=== PATIENT | male | born 1935 | race Caucasian/White ===

== ENCOUNTER → 2018-02-08 10:36 | Outpatient (CLI) | payer MEDICARE, OTHER, SELFPAY ==
--- NOTE | 2018-02-08 | DI.ECHO.S_ITS ---
[facility]---------+ [facility] +---------+ : : [address] : [address] : : : : [id number] : : : : Phone: [phone]+ Echocardiogram Report + + :Name: MADDI STERLING Study Date: 02/08/2018 Height: 71 in : :[facility] Weight: 212 lb : : Gender: Male BSA: 2.2 m2 : :: 1935 Age: 82 yrs BP: 160/78 mmHg: :Reason For Study: Congestive Heart Failure : : Performed By: Agustina Dorman : :Referring: CORY ALMODOVAR : + + Interpretation Summary 1) Mildly enlarged left ventricle with moderately reduced function (EF 35- 40%). 2) Moderate global hypokinesis with akinesis of the mid to apical septum. 3) Grossly, normal right ventricular size and function. 4) No significant valvular abnormalities. 5) No prior Echo available for comparison. Procedure: A two-dimensional transthoracic echocardiogram with color flow and Doppler was performed. The study quality was technically adequate. There is no prior echocardiogram noted for this patient. The patient was in normal sinus rhythm during the exam. Left Ventricle: The left ventricle is mildly dilated. There is normal left ventricular wall thickness. The ejection fraction is estimated to be 35-40%. Moderate global hypokinesis with akinesis of the mid to apical septum. Assessment of diastolic parameters suggests a pseudonormalization pattern, consistent with elevated filling pressures. Right Ventricle: The right ventricle grossly appears normal in size with probable normal systolic function. Atria: The left atrium is moderately dilated. Right atrial size is normal. The interatrial septum is intact with no evidence for an atrial septal defect. Mitral Valve: The mitral valve leaflets appear mildly thickened, but open well. There is mild mitral regurgitation. Aortic Valve: The aortic valve is trileaflet. The aortic valve opens well. There is moderate aortic valve sclerosis. There is no aortic valve stenosis. There is mild aortic regurgitation. Tricuspid Valve: The tricuspid valve is normal in structure and function. There is trace tricuspid regurgitation. Pulmonic Valve: The pulmonic valve is not well seen, but is grossly normal. Great Vessels: The aortic root is normal size. The ascending aorta is at the upper limits of normal in size. The aortic arch is normal in size. Pericardium/ Pleura There is no pericardial effusion. There is no pleural effusion. MMode/2D Measurements & Calculations LVIDd: 6.0 cm Ao root diam: 3.4 cm LVIDs: 5.0 cm Aortic Jxn: 3.2 cm FS: 18.0 % asc Aorta Diam: 3.5 cm IVSd: 0.75 cm Ao Arch Diam (Prox Trans): 2.9 cm LVPWd: 0.76 cm LV sarabia. diameter/BSA (cm/m^2): 2.8 LV sys. diameter/BSA (cm/m^2): 2.3 LA dimension: 4.4 cm RA long axis: 5.1 cm LA A2 area: 25.5 cm2 RA area: 15.7 cm2 LA A4 area: 25.2 cm2 RA vol: 41.0 ml LA length (vol): 5.9 cm RA : 19.0 ml/m2 LA vol: 92.6 ml IVC diam: 2.0 cm LA vol index: 42.8 ml/m2 RVDd major: 5.0 cm RVD1 (basal): 3.2 cm RVD2 (mid): 2.2 cm Doppler Measurements & Calculations Ao V2 max: 140.7 cm/sec MV E max mango: 82.9 cm/sec Ao V2 mean: 82.1 cm/sec MV A max mango: 104.9 cm/sec Ao max P.9 mmHg MV E/A: 0.79 Ao mean P.3 mmHg Med Peak E' Mnago: 3.8 cm/sec Ao V2 VTI: 30.0 cm E/E' med: 21.9 Lat Peak E' Mango: 9.7 cm/sec E/E' lat: 8.6 E/e' average: 15.2 MV dec time: 0.34 sec MV P1/2t: 102.4 msec MR ERO: 0.09 cm2 TR max mango: 240.9 cm/sec MV P1/2t max mango: 82.4 cm/sec TR max P.2 mmHg MVA(P1/2t): 2.1 cm2 PA V2 max: 92.6 cm/sec PA V2 mean: 57.0 cm/sec PA mean P.6 mmHg PA Accel Time: 0.11 sec MR flow rate: 51.0 cm3/sec MR PISA radius: 0.46 cm Reading Physician:12:50 PM
== END ==
PROVIDERS: PCP Internal Medicine; Visit Provider Internal Medicine
DX: I08.0 Rheumatic disorders of both mitral and aortic valves (principal); I50.9 Heart failure, unspecified
CPT/HCPCS: 93306

== ENCOUNTER → 2018-03-15 16:08 | Outpatient (CLI) | payer MEDICARE, OTHER, SELFPAY ==
--- NOTE | 2018-03-15 | DI.US.S_ITS ---
PROCEDURE: US THYROID INDICATIONS: RIGHT THYROID NODULE TECHNIQUE: Real-time scanning was performed of the thyroid gland, with image documentation. COMPARISON: [facility], US, THYROID, 08/07/2017, 13:10. FINDINGS: Right: Thyroid lobe measures 4.1 x 2.1 x 2.9 cm, and is homogeneous in echotexture. Left: Thyroid lobe measures 2.5 x 1.1 x 1.7 cm, and is homogenous in echotexture. Isthmus: 4.0 mm thick. Nodule number: 1 Location: Right mid inferior Size: Unchanged at 2.5 x 2.7 x 1.7 cm. Composition: Solid Echogenicity: Hyperechoic Shape: wider than tall. Margins: Smooth Echogenic foci: None Total points: 4 ACR TI-RADS category: Moderately suspicious Nodule number: 2 Location: Left mid Size: Unchanged at 0.5 x 0.6 x 0.4 cm. Composition: Mixed cystic and solid Echogenicity: Hypoechoic Shape: wider than tall. Margins: Smooth Echogenic foci: None Total points: 30 ACR TI-RADS category: Mildly suspicious IMPRESSION: Stable appearance of bilateral thyroid nodules. Recommend continued followup as detailed below. ACR TI-RADS definitions and recommendations: TI-RADS 1 (benign): 0 points. FNA not needed. TI-RADS 2 (not suspicious): 2 points. FNA not needed. TI-RADS 3 (mildly suspicious): 3 points. * FNA if 2.5 cm or larger, follow up if 1.5 cm or larger (at 1, 3, and 5 years). TI-RADS 4 (moderately suspicious): 4-6 points. * FNA if 1.5 cm or larger, follow up if 1 cm or larger (at 1, 2, 3, and 5 years). TI-RADS 5 (highly suspicious): 7 points or more. * FNA if 1 cm or larger, follow up if 0.5 cm or larger (every year for 5 years). Dictated by: Romel Romero [facility] Interpreted: Elmer Remy MD on 03/16/2018 at 8:03 Approved by: Elmer Remy M.D. on 03/16/2018 at 8:42
== END ==
PROVIDERS: PCP Internal Medicine; Visit Provider Otolaryngology
DX: E04.2 Nontoxic multinodular goiter (principal)
CPT/HCPCS: 76536

== ENCOUNTER → 2018-05-04 15:24 | Outpatient (CLI) | payer MEDICARE, OTHER, SELFPAY ==
--- NOTE | 2018-05-04 | DI.RAD.S_ITS ---
PROCEDURE: XR CHEST 2V INDICATIONS: COUGH TECHNIQUE: 2 views of the chest were acquired. COMPARISON: [facility], CT, THORAX WITHOUT CONTRAST, 07/26/2017, 13:43. FINDINGS: Surgical changes and devices: Sternotomy wires, presumed prior CABG. Lungs and pleura: The right chest is stable over time from prior CT scan in July of this year. The left chest is significantly changed with lobulated areas of thickening of the pleural surface and possible loculated pleural effusion components. Retrocardiac left lower lobe opacification is present, either representing evidence of fluid in this area versus pneumonia. Mediastinum: Mediastinal contours are normal. Heart size is normal. Bones and chest wall: No suspicious bony abnormalities. Soft tissues appear unremarkable. IMPRESSION: Prior sternotomy, presumed prior CABG. 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 Contrast enhanced chest CT scanning may be warranted at this time given this unusual new appearance, for reference to prior July [address] Dictated by: Abe Johnson M.D. on 05/04/2018 at 15:46 Approved by: Abe Johnson M.D. on 05/04/2018 at 15:48
== END ==
PROVIDERS: PCP Internal Medicine; Visit Provider Student in an Organized Health Care Education/Training Program
DX: R05 Cough (principal)
CPT/HCPCS: 71046

== ENCOUNTER 2018-05-05 15:29 | Inpatient (IN) | payer MEDICARE, OTHER, SELFPAY ==
[2018-05-05] VITALS (7 sets, daily range): BP systolic 108–144; BP diastolic 64–83; PULSE 92–103; RESP 15–21; TEMP 36–36.8; O2SAT 91–95; BMI 27.0
--- NOTE | 2018-05-05 16:10 | ED.SOB ---
HPI - SOB/Dyspnea <DANIELLE Hernandez - Last Filed: 05/05/18 22:22> General Chief Complaint: Shortness of Breath/Dyspnea Stated Complaint: CAN'T EAT,HEADACHE,COUGH,HARD TO BREATHE Time Seen by Provider: 05/05/18 16:08 Source: patient Mode of arrival: wheelchair Limitations: no limitations History of Present Illness 82 YEAR OLD MALE WITH HISTORY OF CHF IS A NONSMOKER HERE FOR COMPLAINT OF COUGH OVER THE PAST 4 DAYS. HE WAS SEEN BY HIS PRIMARY CARE PROVIDER OFFICE YESTERDAY AND WAS TREATED WITH AZITHROMYCIN. Chest x-ray was obtained yesterday which showed lobulated opacities and radiology requested that a CT be completed. He presents to the emergency room today due to need of CT and also worsening feeling today. He reports increasing shortness of breath and increasing weakness. He denies having any fever. He states he has had some decreased p.o. intake as he has not been feeling well. No nausea vomiting. Reports increased shortness of breath with activity. He denies having a productive cough. MD Complaint: shortness of breath Related Data Home Medications Medication Instructions Recorded Confirmed allopurinol 100 PO BID 05/06/18 atorvastatin 40 PO ONCE PM 05/06/18 clopidogrel 75 PO DAILY 05/06/18 fluticasone 50 mcg INTRANASAL BID 05/06/18 05/06/18 insulin NPH isoph U-100 human 56 units SUBCUT BID 05/06/18 05/06/18 [Novolin N NPH U-100 Insulin] losartan 50 mg PO DAILY 05/06/18 05/06/18 metoprolol succinate 05/06/18 pantoprazole 40 mg PO DAILY 05/06/18 05/06/18 spironolactone 25 mg PO DAILY 05/06/18 05/06/18 tamsulosin 0.4 mg PO BEDTIME 05/06/18 05/06/18 Allergies Allergy/AdvReac Type Severity Reaction Status Date / Time tolmetin Allergy Severe Anaphylaxis Verified 05/05/18 21:29 Review of Systems <DANIELLE Hernandez - Last Filed: 05/05/18 22:22> Constitutional Denies chills, Denies fever(s), Denies lethargy and Denies weakness Eyes Denies change in vision, Denies eye discharge, Denies irritation and Denies loss of vision ENT Ears, Nose, Mouth, and Throat: Denies change in voice, Denies neck pain, Denies sore throat and Denies throat swelling Cardiovascular Denies chest pain, Denies irregular heart rhythm, Denies lightheadedness, Denies palpitations and Denies orthopnea Respiratory Reports cough and Denies wheezing Gastrointestinal Gastrointestinal: Denies abdominal pain, Denies change in bowel habits, Denies diarrhea, Denies nausea and Denies vomiting Genitourinary Denies hematuria, Denies flank pain, Denies urinary incontinence and Denies urinary urgency Musculoskeletal Denies neck pain Integumentary/Breasts Denies pruritus, Denies erythema, Denies rash and Denies wounds Neurologic Denies confusion, Denies loss of vision and Denies weakness Psychiatric Denies anxiety, Denies confusion, Denies depression, Denies homicidal ideation and Denies suicidal ideation Endocrine Denies palpitations Hematologic/Lymphatic Denies easy bruising Allergic/Immunologic Denies urticaria, Denies throat swelling and Denies wheezing Exam <DANIELLE Hernandez - Last Filed: 05/05/18 22:22> Initial Vital Signs Initial Vital Signs: Vital Signs Temperature 96.8 F L 05/05/18 15:56 Pulse Rate 100 H 05/05/18 15:56 Respiratory Rate 20 05/05/18 15:56 Blood Pressure 108/64 05/05/18 15:56 Pulse Oximetry 91 05/05/18 15:56 Const General: cooperative and well developed Nutritional Appearance: well nourished Orientation: alert, awake, oriented x3 and not confused [facility] Mouth: oral mucosae normal and moist mucous membranes Eyes General: appearance normal, both eyes and all related structures Eyelids: eyelids normal Conjunctivae: conjunctivae normal Sclera: sclerae normal Pupils: PERRL EOM: EOM intact bilaterally Resp Effort & Inspection: normal respiratory effort, able to speak in complete sentences, no respiratory distress and no use of accessory muscles Auscultation: rales bilaterally, no rhonchi and no wheezes Cardio Rate: regular rate Rhythm: regular rhythm Heart Sounds: no click, no gallops, no murmurs and no rubs Pulses: normal peripheral pulses GI Inspection: non-distended Palpation: soft, no hepatosplenomegaly, No guarding, No pulsatile mass and No tender Auscultation: normal bowel sounds Skin General: no rashes or lesions noted, No jaundice and No petechiae Neuro General: alert, oriented x3, gait normal and no focal motor deficits Speech: speech normal <Gina Arita DO - Last Filed: 05/07/18 04:10> Initial Vital Signs Initial Vital Signs: Vital Signs Temperature 96.8 F L 05/05/18 15:56 Pulse Rate 100 H 05/05/18 15:56 Respiratory Rate 20 05/05/18 15:56 Blood Pressure 108/64 05/05/18 15:56 Pulse Oximetry 91 05/05/18 15:56 Course <DANIELLE Hernandez - Last Filed: 05/05/18 22:22> Orders Ordered: ED Orders 05/07/18 05:00 Basic Metabolic Panel Routine Complete Blood Count AUTO DIFF Routine Acetaminophen (Tylenol) 650 mg PO Q6HR PRN PRN Reason: As Needed for Fever/Mild Pain Last Admin: 05/06/18 17:24 Dose: 650 mg Al Hydrox/Mg Hydrox/Simethicone (Maalox Plus) 30 ml PO Q6HR PRN PRN Reason: Dyspepsia Albuterol (Ventolin) 2.5 mg INH [id number] [facility] Last Admin: 05/07/18 02:09 Dose: Not Given Admin: 05/06/18 21:27 Dose: Admin: 05/06/18 14:27 Dose: 2.5 mg Admin: 05/06/18 10:41 Dose: 2.5 mg Admin: 05/06/18 07:01 Dose: 2.5 mg Admin: 05/05/18 22:09 Dose: 2.5 mg Allopurinol (Zyloprim) 100 mg PO DAILY [facility] Last Admin: 05/06/18 10:16 Dose: 100 mg Atorvastatin Calcium (Lipitor) 40 mg PO BEDTIME [facility] Last Admin: 05/06/18 22:03 Dose: 40 mg Admin: 05/05/18 23:02 Dose: 40 mg Clopidogrel Bisulfate (Plavix) 75 mg PO DAILY [facility] Last Admin: 05/06/18 10:15 Dose: 75 mg Dextrose (D50w) 25 gm IV PRN PRN; Protocol PRN Reason: Hypoglycemia Enoxaparin Sodium (Lovenox) 30 mg SUBCUT DAILY [facility] Last Admin: 05/06/18 10:16 Dose: 30 mg Sodium Chloride (Normal Saline 0.9%) 1,000 mls @ 100 mls/hr IV CONT [facility] Last Admin: 05/06/18 18:31 Dose: 100 mls/hr Infusion: 05/06/18 17:39 Dose: 100 mls/hr Admin: 05/06/18 07:39 Dose: 100 mls/hr Infusion: 05/06/18 07:39 Dose: 100 mls/hr Admin: 05/05/18 22:28 Dose: 100 mls/hr Azithromycin 250 mg/ Dextrose 250 mls @ 250 mls/hr IV Q24H [facility] Last Infusion: 05/06/18 23:45 Dose: 250 mls/hr Admin: 05/06/18 22:44 Dose: 250 mls/hr Infusion: 05/06/18 02:53 Dose: 0 mls/hr Admin: 05/06/18 01:45 Dose: 250 mls/hr Ceftriaxone Sodium/Dextrose (Rocephin) 2 gm in 50 mls @ 100 mls/hr IV Q24H [facility] Last Infusion: 05/06/18 22:35 Dose: 100 mls/hr Admin: 05/06/18 22:02 Dose: 100 mls/hr Infusion: 05/06/18 01:40 Dose: 0 mls/hr Admin: 05/05/18 23:02 Dose: 100 mls/hr Insulin Aspart (Novolog Flexpen) 0 unit SUBCUT [facility]; Protocol Last Admin: 05/06/18 22:00 Dose: Not Given Admin: 05/06/18 17:23 Dose: 3 unit Admin: 05/06/18 13:38 Dose: 5 unit Admin: 05/06/18 10:08 Dose: 3 unit Admin: 05/06/18 00:32 Dose: 3 unit Insulin Human NPH (Humulin N) 25 unit SUBCUT BIDWM [facility] Losartan Potassium (Cozaar) 50 mg PO DAILY [facility] Last Admin: 05/06/18 10:16 Dose: 50 mg Magnesium Hydroxide (Milk Of Magnesia) 30 ml PO DAILY PRN PRN Reason: Constipation Metoprolol Succinate (Toprol Xl) 50 mg PO DAILY [facility] Last Admin: 05/06/18 10:16 Dose: 50 mg Ondansetron HCl (Zofran) 4 mg IV Q8HR PRN PRN Reason: Nausea And Vomiting Oxycodone HCl (Percolone) 5 mg PO Q6HR PRN PRN Reason: Pain, Moderate (4-6) Last Admin: 05/07/18 02:57 Dose: 5 mg Admin: 05/06/18 19:25 Dose: 5 mg Admin: 05/06/18 13:39 Dose: 5 mg Admin: 05/06/18 06:45 Dose: 5 mg Admin: 05/06/18 00:46 Dose: 5 mg Pantoprazole Sodium (Protonix) 40 mg PO 0700 [facility] Last Admin: 05/06/18 06:45 Dose: 40 mg Fluticasone/Salmeterol (Advair 250/50 Diskus) 1 puff INH RTBID [facility] Last Admin: 05/07/18 02:09 Dose: Admin: 05/06/18 10:42 Dose: 1 puff Tamsulosin HCl (Flomax) 0.4 mg PO DAILY [facility] Last Admin: 05/06/18 10:17 Dose: 0.4 mg Discontinued Medications Sodium Chloride (Normal Saline 0.9%) 1,000 mls @ 1,000 mls/hr IV BOLUS ONE Stop: 05/05/18 17:48 Last Infusion: 05/05/18 18:26 Dose: 0 mls/hr Admin: 05/05/18 17:07 Dose: 1,000 mls/hr Levofloxacin (Levaquin) 750 mg in 150 mls @ 100 mls/hr IV NOW ONE Stop: 05/05/18 21:05 Last Infusion: 05/05/18 21:19 Dose: 0 mls/hr Admin: 05/05/18 19:42 Dose: 100 mls/hr Ceftriaxone Sodium/Dextrose (Rocephin) 1 gm in 50 mls @ 100 mls/hr IV NOW ONE Stop: 05/05/18 20:10 Last Infusion: 05/05/18 20:42 Dose: 0 mls/hr Admin: 05/05/18 20:03 Dose: 100 mls/hr Sodium Chloride (Normal Saline 0.9%) 1,000 mls @ 1,000 mls/hr IV BOLUS ONE Stop: 05/05/18 20:48 Last Infusion: 05/05/18 21:19 Dose: 1,000 mls/hr Admin: 05/05/18 20:04 Dose: 1,000 mls/hr Insulin Human NPH (Humulin N) 25 unit SUBCUT BIDAC [facility] Insulin Human NPH (Humulin N) 25 unit SUBCUT BIDAC [facility] Last Admin: 05/06/18 17:22 Dose: 25 unit Admin: 05/06/18 10:08 Dose: 25 unit Vital Signs - 8 hr 05/06/18 23:00 05/07/18 00:00 Temperature 97.3 F L Pulse Rate 83 Respiratory Rate 22 Blood Pressure 132/70 Pulse Oximetry 94 95 <Gina Arita, - Last Filed: 05/07/18 04:10> Orders Ordered: ED Orders 05/07/18 05:00 Basic Metabolic Panel Routine Complete Blood Count AUTO DIFF Routine Acetaminophen (Tylenol) 650 mg PO Q6HR PRN PRN Reason: As Needed for Fever/Mild Pain Last Admin: 05/06/18 17:24 Dose: 650 mg Al Hydrox/Mg Hydrox/Simethicone (Maalox Plus) 30 ml PO Q6HR PRN PRN Reason: Dyspepsia Albuterol (Ventolin) 2.5 mg INH [id number] [facility] Last Admin: 05/07/18 02:09 Dose: Not Given Admin: 05/06/18 21:27 Dose: Admin: 05/06/18 14:27 Dose: 2.5 mg Admin: 05/06/18 10:41 Dose: 2.5 mg Admin: 05/06/18 07:01 Dose: 2.5 mg Admin: 05/05/18 22:09 Dose: 2.5 mg Allopurinol (Zyloprim) 100 mg PO DAILY [facility] Last Admin: 05/06/18 10:16 Dose: 100 mg Atorvastatin Calcium (Lipitor) 40 mg PO BEDTIME [facility] Last Admin: 05/06/18 22:03 Dose: 40 mg Admin: 05/05/18 23:02 Dose: 40 mg Clopidogrel Bisulfate (Plavix) 75 mg PO DAILY [facility] Last Admin: 05/06/18 10:15 Dose: 75 mg Dextrose (D50w) 25 gm IV PRN PRN; Protocol PRN Reason: Hypoglycemia Enoxaparin Sodium (Lovenox) 30 mg SUBCUT DAILY [facility] Last Admin: 05/06/18 10:16 Dose: 30 mg Sodium Chloride (Normal Saline 0.9%) 1,000 mls @ 100 mls/hr IV CONT [facility] Last Admin: 05/06/18 18:31 Dose: 100 mls/hr Infusion: 10/21/18 17:39 Dose: 100 mls/hr Admin: 05/06/18 07:39 Dose: 100 mls/hr Infusion: 05/06/18 07:39 Dose: 100 mls/hr Admin: 05/05/18 22:28 Dose: 100 mls/hr Azithromycin 250 mg/ Dextrose 250 mls @ 250 mls/hr IV Q24H [facility] Last Infusion: 05/06/18 23:45 Dose: 250 mls/hr Admin: 05/06/18 22:44 Dose: 250 mls/hr Infusion: 05/06/18 02:53 Dose: 0 mls/hr Admin: 05/06/18 01:45 Dose: 250 mls/hr Ceftriaxone Sodium/Dextrose (Rocephin) 2 gm in 50 mls @ 100 mls/hr IV Q24H [facility] Last Infusion: 05/06/18 22:35 Dose: 100 mls/hr Admin: 05/06/18 22:02 Dose: 100 mls/hr Infusion: 05/06/18 01:40 Dose: 0 mls/hr Admin: 05/05/18 23:02 Dose: 100 mls/hr Insulin Aspart (Novolog Flexpen) 0 unit SUBCUT [facility]; Protocol Last Admin: 05/06/18 22:00 Dose: Not Given Admin: 05/06/18 17:23 Dose: 3 unit Admin: 05/06/18 13:38 Dose: 5 unit Admin: 05/06/18 10:08 Dose: 3 unit Admin: 05/06/18 00:32 Dose: 3 unit Insulin Human NPH (Humulin N) 25 unit SUBCUT BIDWM [facility] Losartan Potassium (Cozaar) 50 mg PO DAILY [facility] Last Admin: 05/06/18 10:16 Dose: 50 mg Magnesium Hydroxide (Milk Of Magnesia) 30 ml PO DAILY PRN PRN Reason: Constipation Metoprolol Succinate (Toprol Xl) 50 mg PO DAILY [facility] Last Admin: 05/06/18 10:16 Dose: 50 mg Ondansetron HCl (Zofran) 4 mg IV Q8HR PRN PRN Reason: Nausea And Vomiting Oxycodone HCl (Percolone) 5 mg PO Q6HR PRN PRN Reason: Pain, Moderate (4-6) Last Admin: 05/07/18 02:57 Dose: 5 mg Admin: 05/06/18 19:25 Dose: 5 mg Admin: 05/06/18 13:39 Dose: 5 mg Admin: 05/06/18 06:45 Dose: 5 mg Admin: 05/06/18 00:46 Dose: 5 mg Pantoprazole Sodium (Protonix) 40 mg PO 0700 [facility] Last Admin: 05/06/18 06:45 Dose: 40 mg Fluticasone/Salmeterol (Advair 250/50 Diskus) 1 puff INH RTBID [facility] Last Admin: 05/07/18 02:09 Dose: Admin: 05/06/18 10:42 Dose: 1 puff Tamsulosin HCl (Flomax) 0.4 mg PO DAILY [facility] Last Admin: 05/06/18 10:17 Dose: 0.4 mg Discontinued Medications Sodium Chloride (Normal Saline 0.9%) 1,000 mls @ 1,000 mls/hr IV BOLUS ONE Stop: 05/05/18 17:48 Last Infusion: 05/05/18 18:26 Dose: 0 mls/hr Admin: 05/05/18 17:07 Dose: 1,000 mls/hr Levofloxacin (Levaquin) 750 mg in 150 mls @ 100 mls/hr IV NOW ONE Stop: 05/05/18 21:05 Last Infusion: 05/05/18 21:19 Dose: 0 mls/hr Admin: 05/05/18 19:42 Dose: 100 mls/hr Ceftriaxone Sodium/Dextrose (Rocephin) 1 gm in 50 mls @ 100 mls/hr IV NOW ONE Stop: 05/05/18 20:10 Last Infusion: 05/05/18 20:42 Dose: 0 mls/hr Admin: 05/05/18 20:03 Dose: 100 mls/hr Sodium Chloride (Normal Saline 0.9%) 1,000 mls @ 1,000 mls/hr IV BOLUS ONE Stop: 05/05/18 20:48 Last Infusion: 05/05/18 21:19 Dose: 1,000 mls/hr Admin: 05/05/18 20:04 Dose: 1,000 mls/hr Insulin Human NPH (Humulin N) 25 unit SUBCUT BIDAC ANDREI Insulin Human NPH (Humulin N) 25 unit SUBCUT BIDAC [facility] Last Admin: 05/06/18 17:22 Dose: 25 unit Admin: 05/06/18 10:08 Dose: 25 unit Vital Signs - 8 hr 05/06/18 23:00 05/07/18 00:00 Temperature 97.3 F L Pulse Rate 83 Respiratory Rate 22 Blood Pressure 132/70 Pulse Oximetry 94 95 MDM - SOB/Dyspnea <DANIELLE Hernandez - Last Filed: 05/05/18 22:22> Lab Data Result diagrams: 05/06/18 06:08 05/06/18 07:00 Lab Results 05/05/18 05/05/18 05/05/18 Range/Units 16:07 16:07 16:07 WBC 31.1 H* (4.5-11.0) X10^3/uL RBC 3.68 L (4.5-5.9) X10^6/uL Hgb 11.5 L (13.5-17.5) g/dL Hct 35.0 L (41-53) % MCV 95.2 (80-100) fL MCH 31.3 (26-34) PG MCHC 32.9 (30-36) % RDW 14.7 (11.6-14.8) % Plt Count 412 H (150-400) X10^3/uL Neut % (Auto) Not Reportable Lymph % (Auto) Not Reportable [place] % (Auto) Not Reportable Eos % (Auto) Not Reportable Baso % (Auto) Not Reportable Neut # (Auto) (3943-2264) /uL Total Counted 100 Seg Neutrophils % 85.0 H (38-70) % Band Neutrophils % 1.0 L (3-7) % Lymphocytes % (Manual) 4.0 L (25-45) % Atypical Lymphs % 4.0 H ( - 0) % Monocytes % (Manual) 5.0 (2-11) % Eosinophils % (Manual) 1.0 L (2-4) % Neutrophils # (Manual) 82528 H (5606-0681) /uL RBC Morphology Normal morphology ABG pH (7.35-7.45) ABG pCO2 (35-45) mmHg ABG pO2 (80-105) mmHg ABG HCO3 (23-27) mmol/L ABG Total CO2 (23-27) mmol/L ABG O2 Saturation (95-100) % ABG Base Excess (-2-3) mmol/L FiO2 Sodium 137 (137-145) mmol/L Potassium 4.6 (3.4-5.1) mmol/L Chloride 99 (98-107) mmol/L Carbon Dioxide 22 (22-32) mmol/L BUN 86 H (9-20) mg/dL Creatinine 2.20 H (0.66-1.25) mg/dL Estimated GFR 28.9 L (>60) mL/min BUN/Creatinine Ratio 39.1 H (6-22) Glucose 203 H (80-110) mg/dL Lactate (0.7-2.1) mmol/L Calcium 9.4 (8.4-10.2) mg/dL Total Bilirubin 1.3 (0.2-1.3) mg/dL AST 200 H (17-59) IU/L ALT 181 H (21-72) IU/L Alkaline Phosphatase 123 (38-126) U/L Total Creatine Kinase 127 (55-170) U/L CK-MB (CK-2) 3.23 H (<2.37) ng/mL CK-MB (CK-2) Rel Index 2.5 (1.5-5.0) % Troponin I < 0.012 (0.01-0.034) ng/mL B-Natriuretic Peptide 89.9 (<100) Total Protein 7.3 (6.3-8.2) g/dL Albumin 3.6 (3.5-5.0) g/dL Globulin 3.7 (1.7-4.1) g/dL Albumin/Globulin Ratio 1.0 (1.0-2.8) Procalcitonin 3.29 H (<0.5) ng/mL Urine RBC (0-5/HPF) Urine WBC (0-5/HPF) Ur Squamous Epith Cells Urine Bacteria (None) Ur Culture Indicated? Micro UA Comment Influenza A & B (PCR) (Negative) 05/05/18 05/05/18 05/05/18 Range/Units 16:07 17:00 19:50 WBC (4.5-11.0) X10^3/uL RBC (4.5-5.9) X10^6/uL Hgb (13.5-17.5) g/dL Hct (41-53) % MCV (80-100) fL MCH (26-34) PG MCHC (30-36) % RDW (11.6-14.8) % Plt Count (150-400) X10^3/uL Neut % (Auto) Lymph % (Auto) [place] % (Auto) Eos % (Auto) Baso % (Auto) Neut # (Auto) (4924-9582) /uL Total Counted Seg Neutrophils % (38-70) % Band Neutrophils % (3-7) % Lymphocytes % (Manual) (25-45) % Atypical Lymphs % ( - 0) % Monocytes % (Manual) (2-11) % Eosinophils % (Manual) (2-4) % Neutrophils # (Manual) (5658-2584) /uL RBC Morphology ABG pH (7.35-7.45) ABG pCO2 (35-45) mmHg ABG pO2 (80-105) mmHg ABG HCO3 (23-27) mmol/L ABG Total CO2 (23-27) mmol/L ABG O2 Saturation (95-100) % ABG Base Excess (-2-3) mmol/L FiO2 Sodium (137-145) mmol/L Potassium (3.4-5.1) mmol/L Chloride (98-107) mmol/L Carbon Dioxide (22-32) mmol/L BUN (9-20) mg/dL Creatinine (0.66-1.25) mg/dL Estimated GFR (>60) mL/min BUN/Creatinine Ratio (6-22) Glucose (80-110) mg/dL Lactate 1.5 (0.7-2.1) mmol/L Calcium (8.4-10.2) mg/dL Total Bilirubin (0.2-1.3) mg/dL AST (17-59) IU/L ALT (21-72) IU/L Alkaline Phosphatase (38-126) U/L Total Creatine Kinase (55-170) U/L CK-MB (CK-2) (<2.37) ng/mL CK-MB (CK-2) Rel Index (1.5-5.0) % Troponin I (0.01-0.034) ng/mL B-Natriuretic Peptide (<100) Total Protein (6.3-8.2) g/dL Albumin (3.5-5.0) g/dL Globulin (1.7-4.1) g/dL Albumin/Globulin Ratio (1.0-2.8) Procalcitonin (<0.5) ng/mL Urine RBC 0-1/hpf (0-5/HPF) Urine WBC 10-30/hpf H (0-5/HPF) Ur Squamous Epith Cells None seen Urine Bacteria Many (>30) H (None) Ur Culture Indicated? Specimen cultured Micro UA Comment Not Reportable Influenza A & B (PCR) Negative (Negative) 05/05/18 05/06/18 05/06/18 Range/Units 22:02 06:08 07:00 WBC 25.0 H (4.5-11.0) X10^3/uL RBC 3.34 L (4.5-5.9) X10^6/uL Hgb 10.5 L (13.5-17.5) g/dL Hct 31.6 L (41-53) % MCV 94.5 (80-100) fL MCH 31.4 (26-34) PG MCHC 33.2 (30-36) % RDW 14.6 (11.6-14.8) % Plt Count 344 (150-400) X10^3/uL Neut % (Auto) 87.3 H Lymph % (Auto) 4.6 L [place] % (Auto) 7.0 Eos % (Auto) 0.9 L Baso % (Auto) 0.2 Neut # (Auto) 91235 H (4356-2483) /uL Total Counted Seg Neutrophils % (38-70) % Band Neutrophils % (3-7) % Lymphocytes % (Manual) (25-45) % Atypical Lymphs % ( - 0) % Monocytes % (Manual) (2-11) % Eosinophils % (Manual) (2-4) % Neutrophils # (Manual) (1072-6485) /uL RBC Morphology ABG pH 7.49 H (7.35-7.45) ABG pCO2 28.3 L (35-45) mmHg ABG pO2 68 L (80-105) mmHg ABG HCO3 22 L (23-27) mmol/L ABG Total CO2 22 L (23-27) mmol/L ABG O2 Saturation 95 (95-100) % ABG Base Excess -2.0 (-2-3) mmol/L FiO2 24 Sodium 136 L (137-145) mmol/L Potassium 4.4 (3.4-5.1) mmol/L Chloride 103 (98-107) mmol/L Carbon Dioxide 22 (22-32) mmol/L BUN 68 H (9-20) mg/dL Creatinine 1.60 H (0.66-1.25) mg/dL Estimated GFR 41.8 L (>60) mL/min BUN/Creatinine Ratio 42.5 H (6-22) Glucose 194 H (80-110) mg/dL Lactate (0.7-2.1) mmol/L Calcium 8.6 (8.4-10.2) mg/dL Total Bilirubin 1.6 H (0.2-1.3) mg/dL AST 700 H (17-59) IU/L ALT 542 H (21-72) IU/L Alkaline Phosphatase 152 H (38-126) U/L Total Creatine Kinase (55-170) U/L CK-MB (CK-2) (<2.37) ng/mL CK-MB (CK-2) Rel Index (1.5-5.0) % Troponin I (0.01-0.034) ng/mL B-Natriuretic Peptide (<100) Total Protein 6.4 (6.3-8.2) g/dL Albumin 3.0 L (3.5-5.0) g/dL Globulin 3.4 (1.7-4.1) g/dL Albumin/Globulin Ratio 0.9 L (1.0-2.8) Procalcitonin (<0.5) ng/mL Urine RBC (0-5/HPF) Urine WBC (0-5/HPF) Ur Squamous Epith Cells Urine Bacteria (None) Ur Culture Indicated? Micro UA Comment Influenza A & B (PCR) (Negative) Point of Care Testing Glucose POC 179 Urine Dip Bedside Urine Glucose Negative Bedside Urine Bilirubin - Negative Bedside Urine Ketone - Negative Urine Specific [place] 1.020 Bedside Urine Occult Blood +/- Bedside Urine pH 5.5 Bedside Urine Protein +/- 15 Bedside Urine Urobilinogen - Negative Bedside Urine Nitrite - Negative Bedside Urine Leukocytes +++ 500 Esterase Imaging Data Chest x-ray: Radiologist's impression: [address] [address] XRay Report Signed Patient: Winston Houston LMR#: [id number] : [id number]:[id number] Age/Sex: 82 / MDate of Service: 05/04/18 Loc: RAD Accession Number: [id number] Procedure: XR chest 2V Ordering Provider: Janette Corea P.A-C PROCEDURE: XR CHEST 2V INDICATIONS: COUGH TECHNIQUE: 2 views of the chest were acquired. COMPARISON: [facility], CT, THORAX WITHOUT CONTRAST, 07/26/2017, 13:43. FINDINGS: Surgical changes and devices: Sternotomy wires, presumed prior CABG. Lungs and pleura: The right chest is stable over time from prior CT scan in July of this year. The left chest is significantly changed with lobulated areas of thickening of the pleural surface and possible loculated pleural effusion components. Retrocardiac left lower lobe opacification is present, either representing evidence of fluid in this area versus pneumonia. Mediastinum: Mediastinal contours are normal. Heart size is normal. Bones and chest wall: No suspicious bony abnormalities. Soft tissues appear unremarkable. IMPRESSION: Prior sternotomy, presumed prior CABG. 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 Contrast enhanced chest CT scanning may be warranted at this time given this unusual new appearance, for reference to prior July [address] Dictated by: Abe Johnson M.D. on 05/04/2018 at 15:46 Approved by: Abe Johnson M.D. on 05/04/2018 at 15:48 CT scan - chest: Radiologist's impression: [place] [address] CT Scan Report Signed Patient: Winston Houston LMR#: [id number] : 7Acct:[id number] Age/Sex: 82 / MDate of Service: 05/05/18 Loc: ED Accession Number: [id number] Procedure: CT chest wo con Ordering Provider: James Vallejo PROCEDURE: CT CHEST WO CON INDICATIONS: Abnormal findings on chest x-ray yesterday TECHNIQUE: Noncontrast 5 mm thick sections acquired from the pulmonary apices to the posterior costophrenic angles. 7 mm thick coronal and sagittal MIP reformats were then acquired. For radiation dose reduction, the following was used: automated exposure control, adjustment of mA and/or kV according to patient size. COMPARISON: [facility], CT, THORAX WITHOUT CONTRAST, 07/26/2017, 13:43. [facility], CR, XR CHEST 2V, 05/04/2018, 15:02. FINDINGS: Image quality: Excellent. Lungs and pleura: Lobulated areas of consolidative opacity are present throughout the left hemithorax most prominent in the right base. Areas of air bronchograms are present. There no definitive areas of necrosis. Areas of mild consolidation are also present within the left base. Mediastinum: Heart size is normal. No pericardial effusion. Borderline enlarged mediastinal lymph nodes are present, possibly reactive in nature. Thoracic aorta and central pulmonary arteries are normal in size. Esophagus is normal in caliber. No hiatal hernia. Bones and chest wall: No suspicious bony lesions. No vertebral body compression fractures. No axillary or supraclavicular adenopathy by size criteria. Thyroid gland is unremarkable. Abdomen: Left kidney has been removed. Otherwise, visualized upper abdominal solid organs and bowel loops appear normal in the absence of contrast. IMPRESSION: 1. There is a lobulated opacity and consolidation are present within the lungs bilaterally most severe on the left. Overall appearance is suggestive of infection or inflammation. Recommend short interval imaging followup to document resolution if present underlying mass lesion. There are no visualized areas of cavitation to suggest abscess. However, exam is limited without IV contrast. Dictated by: Anel Nieves M.D. on 05/05/2018 at 19:24 Approved by: Anel Nieves M.D. on 05/05/2018 at 19:27 MDM Narrative Medical decision making narrative: CBC was obtained and shows white count of 31 AK. 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 Creatinine was also elevated at 2.2. Procalcitonin was obtained and was 3.29. Troponin was negative. BNP was normal at 89.9. Chest CT shows lobulated opacities and consolidation bilaterally left greater than right. Findings suggestive of infection. No abscesses are seen however was unable to do contrast CT due to impaired renal function. Discussed case with hospitalist Dr. Mae who accepted patient. He is started on Levaquin and Rocephin. He was given fluids in the emergency room. Patient admitted to hospital for further evaluation. <Gina Arita, DO - Last Filed: 05/07/18 04:10> Lab Data Lab Results 05/05/18 05/05/18 05/05/18 Range/Units 16:07 16:07 16:07 WBC 31.1 H* (4.5-11.0) X10^3/uL RBC 3.68 L (4.5-5.9) X10^6/uL Hgb 11.5 L (13.5-17.5) g/dL Hct 35.0 L (41-53) % MCV 95.2 (80-100) fL MCH 31.3 (26-34) PG MCHC 32.9 (30-36) % RDW 14.7 (11.6-14.8) % Plt Count 412 H (150-400) X10^3/uL Neut % (Auto) Not Reportable Lymph % (Auto) Not Reportable [place] % (Auto) Not Reportable Eos % (Auto) Not Reportable Baso % (Auto) Not Reportable Neut # (Auto) (5828-9300) /uL Total Counted 100 Seg Neutrophils % 85.0 H (38-70) % Band Neutrophils % 1.0 L (3-7) % Lymphocytes % (Manual) 4.0 L (25-45) % Atypical Lymphs % 4.0 H ( - 0) % Monocytes % (Manual) 5.0 (2-11) % Eosinophils % (Manual) 1.0 L (2-4) % Neutrophils # (Manual) 13906 H (8578-0608) /uL RBC Morphology Normal morphology ABG pH (7.35-7.45) ABG pCO2 (35-45) mmHg ABG pO2 (80-105) mmHg ABG HCO3 (23-27) mmol/L ABG Total CO2 (23-27) mmol/L ABG O2 Saturation (95-100) % ABG Base Excess (-2-3) mmol/L FiO2 Sodium 137 (137-145) mmol/L Potassium 4.6 (3.4-5.1) mmol/L Chloride 99 (98-107) mmol/L Carbon Dioxide 22 (22-32) mmol/L BUN 86 H (9-20) mg/dL Creatinine 2.20 H (0.66-1.25) mg/dL Estimated GFR 28.9 L (>60) mL/min BUN/Creatinine Ratio 39.1 H (6-22) Glucose 203 H (80-110) mg/dL Lactate (0.7-2.1) mmol/L Calcium 9.4 (8.4-10.2) mg/dL Total Bilirubin 1.3 (0.2-1.3) mg/dL AST 200 H (17-59) IU/L ALT 181 H (21-72) IU/L Alkaline Phosphatase 123 (38-126) U/L Total Creatine Kinase 127 (55-170) U/L CK-MB (CK-2) 3.23 H (<2.37) ng/mL CK-MB (CK-2) Rel Index 2.5 (1.5-5.0) % Troponin I < 0.012 (0.01-0.034) ng/mL B-Natriuretic Peptide 89.9 (<100) Total Protein 7.3 (6.3-8.2) g/dL Albumin 3.6 (3.5-5.0) g/dL Globulin 3.7 (1.7-4.1) g/dL Albumin/Globulin Ratio 1.0 (1.0-2.8) Procalcitonin 3.29 H (<0.5) ng/mL Urine RBC (0-5/HPF) Urine WBC (0-5/HPF) Ur Squamous Epith Cells Urine Bacteria (None) Ur Culture Indicated? Micro UA Comment Influenza A & B (PCR) (Negative) 05/05/18 05/05/18 05/05/18 Range/Units 16:07 17:00 19:50 WBC (4.5-11.0) X10^3/uL RBC (4.5-5.9) X10^6/uL Hgb (13.5-17.5) g/dL Hct (41-53) % MCV (80-100) fL MCH (26-34) PG MCHC (30-36) % RDW (11.6-14.8) % Plt Count (150-400) X10^3/uL Neut % (Auto) Lymph % (Auto) [place] % (Auto) Eos % (Auto) Baso % (Auto) Neut # (Auto) (9967-9455) /uL Total Counted Seg Neutrophils % (38-70) % Band Neutrophils % (3-7) % Lymphocytes % (Manual) (25-45) % Atypical Lymphs % ( - 0) % Monocytes % (Manual) (2-11) % Eosinophils % (Manual) (2-4) % Neutrophils # (Manual) (5274-2144) /uL RBC Morphology ABG pH (7.35-7.45) ABG pCO2 (35-45) mmHg ABG pO2 (80-105) mmHg ABG HCO3 (23-27) mmol/L ABG Total CO2 (23-27) mmol/L ABG O2 Saturation (95-100) % ABG Base Excess (-2-3) mmol/L FiO2 Sodium (137-145) mmol/L Potassium (3.4-5.1) mmol/L Chloride (98-107) mmol/L Carbon Dioxide (22-32) mmol/L BUN (9-20) mg/dL Creatinine (0.66-1.25) mg/dL Estimated GFR (>60) mL/min BUN/Creatinine Ratio (6-22) Glucose (80-110) mg/dL Lactate 1.5 (0.7-2.1) mmol/L Calcium (8.4-10.2) mg/dL Total Bilirubin (0.2-1.3) mg/dL AST (17-59) IU/L ALT (21-72) IU/L Alkaline Phosphatase (38-126) U/L Total Creatine Kinase (55-170) U/L CK-MB (CK-2) (<2.37) ng/mL CK-MB (CK-2) Rel Index (1.5-5.0) % Troponin I (0.01-0.034) ng/mL B-Natriuretic Peptide (<100) Total Protein (6.3-8.2) g/dL Albumin (3.5-5.0) g/dL Globulin (1.7-4.1) g/dL Albumin/Globulin Ratio (1.0-2.8) Procalcitonin (<0.5) ng/mL Urine RBC 0-1/hpf (0-5/HPF) Urine WBC 10-30/hpf H (0-5/HPF) Ur Squamous Epith Cells None seen Urine Bacteria Many (>30) H (None) Ur Culture Indicated? Specimen cultured Micro UA Comment Not Reportable Influenza A & B (PCR) Negative (Negative) 05/05/18 05/06/18 05/06/18 Range/Units 22:02 06:08 07:00 WBC 25.0 H (4.5-11.0) X10^3/uL RBC 3.34 L (4.5-5.9) X10^6/uL Hgb 10.5 L (13.5-17.5) g/dL Hct 31.6 L (41-53) % MCV 94.5 (80-100) fL MCH 31.4 (26-34) PG MCHC 33.2 (30-36) % RDW 14.6 (11.6-14.8) % Plt Count 344 (150-400) X10^3/uL Neut % (Auto) 87.3 H Lymph % (Auto) 4.6 L [place] % (Auto) 7.0 Eos % (Auto) 0.9 L Baso % (Auto) 0.2 Neut # (Auto) 50595 H (0961-3929) /uL Total Counted Seg Neutrophils % (38-70) % Band Neutrophils % (3-7) % Lymphocytes % (Manual) (25-45) % Atypical Lymphs % ( - 0) % Monocytes % (Manual) (2-11) % Eosinophils % (Manual) (2-4) % Neutrophils # (Manual) (2381-8394) /uL RBC Morphology ABG pH 7.49 H (7.35-7.45) ABG pCO2 28.3 L (35-45) mmHg ABG pO2 68 L (80-105) mmHg ABG HCO3 22 L (23-27) mmol/L ABG Total CO2 22 L (23-27) mmol/L ABG O2 Saturation 95 (95-100) % ABG Base Excess -2.0 (-2-3) mmol/L FiO2 24 Sodium 136 L (137-145) mmol/L Potassium 4.4 (3.4-5.1) mmol/L Chloride 103 (98-107) mmol/L Carbon Dioxide 22 (22-32) mmol/L BUN 68 H (9-20) mg/dL Creatinine 1.60 H (0.66-1.25) mg/dL Estimated GFR 41.8 L (>60) mL/min BUN/Creatinine Ratio 42.5 H (6-22) Glucose 194 H (80-110) mg/dL Lactate (0.7-2.1) mmol/L Calcium 8.6 (8.4-10.2) mg/dL Total Bilirubin 1.6 H (0.2-1.3) mg/dL AST 700 H (17-59) IU/L ALT 542 H (21-72) IU/L Alkaline Phosphatase 152 H (38-126) U/L Total Creatine Kinase (55-170) U/L CK-MB (CK-2) (<2.37) ng/mL CK-MB (CK-2) Rel Index (1.5-5.0) % Troponin I (0.01-0.034) ng/mL B-Natriuretic Peptide (<100) Total Protein 6.4 (6.3-8.2) g/dL Albumin 3.0 L (3.5-5.0) g/dL Globulin 3.4 (1.7-4.1) g/dL Albumin/Globulin Ratio 0.9 L (1.0-2.8) Procalcitonin (<0.5) ng/mL Urine RBC (0-5/HPF) Urine WBC (0-5/HPF) Ur Squamous Epith Cells Urine Bacteria (None) Ur Culture Indicated? Micro UA Comment Influenza A & B (PCR) (Negative) Point of Care Testing Glucose POC 179 Urine Dip Bedside Urine Glucose Negative Bedside Urine Bilirubin - Negative Bedside Urine Ketone - Negative Urine Specific [place] 1.020 Bedside Urine Occult Blood +/- Bedside Urine pH 5.5 Bedside Urine Protein +/- 15 Bedside Urine Urobilinogen - Negative Bedside Urine Nitrite - Negative Bedside Urine Leukocytes +++ 500 Esterase Discharge Plan Departure Patient Disposition: Admitted As Inpatient Clinical Impression: Community acquired pneumonia Discharge Date/Time: 05/05/18 21:21 Interventions: ED Discharge Assessment Last Done: 05/05/18 21:20 Admit Date/Time: 05/05/18 20:16 Admit Provider: Joseph Mae <Gina Arita, - Last Filed: 05/07/18 04:10> Cosign ED Attending Cosignature Attestation: I was immediately available in the department for consultation. This documentation has been reviewed and I agree with assessment and plan. Supervised by iGna Arita DO
[2018-05-05] MEDS: SODIUM CHLORIDE 0.9% 1,000 ML 1000 ML IV ×2 (17:07→20:04)
[2018-05-05 17:11] LABS: Hemoglobin 11.5 g/dL (13.5-17.5); Mean Corpuscular HGB Conc 32.9 % (30-36); Mean Corpuscular Hemoglobin 31.3 PG (26-34); Mean Corpuscular Volume 95.2 fL (80-100); Platelet Count 412 X10^3/uL (150-400); Red Blood Cell Count 3.68 X10^6/uL (4.5-5.9); Red Cell Distribution Width 14.7 % (11.6-14.8)
[2018-05-05 17:15] LABS: Lactate (Lactic Acid) 1.5 mmol/L (0.7-2.1)
[2018-05-05 17:16] LABS: Alanine Aminotransferase 181 IU/L (21-72); Albumin 3.6 g/dL (3.5-5.0); Alkaline Phosphatase 123 U/L (38-126); Aspartate Aminotransferase 200 IU/L (17-59); BUN Creatinine Ratio 39.1 (6-22); Bilirubin Total 1.3 mg/dL (0.2-1.3); Blood Urea Nitrogen 86 mg/dL (9-20); Calcium 9.4 mg/dL (8.4-10.2); Carbon Dioxide 22 mmol/L (22-32); Chloride 99 mmol/L (98-107); Creatine Kinase 127 U/L (55-170); Estimated Glomerular Filt Rate 28.9 mL/min (>60); Globulin 3.7 g/dL (1.7-4.1); Glucose 203 mg/dL (80-110); HEMOLYSIS < 15 (0-50); Potassium 4.6 mmol/L (3.4-5.1); Sodium 137 mmol/L (137-145); Total Protein 7.3 g/dL (6.3-8.2)
[2018-05-05 17:29] LABS: Add Manual Diff / Slide Review YES; Troponin I < 0.012 ng/mL (0.01-0.034); White Blood Cell Count 31.1 X10^3/uL (4.5-11.0)
[2018-05-05 17:31] LABS: CKMB % Relative Index 2.5 % (1.5-5.0); Creatine Kinase MB 3.23 ng/mL (<2.37)
[2018-05-05 17:38] LABS: B Type Natriuretic Peptide 89.9 (<100)
[2018-05-05 17:52] LABS: Influenza A and B by PCR Rapid Negative (Negative)
--- NOTE | 2018-05-05 17:56 | DI.CT.S_ITS ---
PROCEDURE: CT CHEST WO CON INDICATIONS: Abnormal findings on chest x-ray yesterday TECHNIQUE: Noncontrast 5 mm thick sections acquired from the pulmonary apices to the posterior costophrenic angles. 7 mm thick coronal and sagittal MIP reformats were then acquired. For radiation dose reduction, the following was used: automated exposure control, adjustment of mA and/or kV according to patient size. COMPARISON: [facility], CT, THORAX WITHOUT CONTRAST, 07/26/2017, 13:43. [facility], CR, XR CHEST 2V, 05/04/2018, 15:02. FINDINGS: Image quality: Excellent. Lungs and pleura: Lobulated areas of consolidative opacity are present throughout the left hemithorax most prominent in the right base. Areas of air bronchograms are present. There no definitive areas of necrosis. Areas of mild consolidation are also present within the left base. Mediastinum: Heart size is normal. No pericardial effusion. Borderline enlarged mediastinal lymph nodes are present, possibly reactive in nature. Thoracic aorta and central pulmonary arteries are normal in size. Esophagus is normal in caliber. No hiatal hernia. Bones and chest wall: No suspicious bony lesions. No vertebral body compression fractures. No axillary or supraclavicular adenopathy by size criteria. Thyroid gland is unremarkable. Abdomen: Left kidney has been removed. Otherwise, visualized upper abdominal solid organs and bowel loops appear normal in the absence of contrast. IMPRESSION: 1. There is a lobulated opacity and consolidation are present within the lungs bilaterally most severe on the left. Overall appearance is suggestive of infection or inflammation. Recommend short interval imaging followup to document resolution if present underlying mass lesion. There are no visualized areas of cavitation to suggest abscess. However, exam is limited without IV contrast. Dictated by: Anel Nieves M.D. on 05/05/2018 at 19:24 Approved by: Anel Nieves M.D. on 05/05/2018 at 19:27
[2018-05-05 18:02] LABS: Neutrophils Absolute Manual 26746 /uL (3000-5900); RBC Morphology Normal Morphology; Total Cells Counted 100
[2018-05-05 18:15] LABS: Procalcitonin 3.29 ng/mL (<0.5)
[2018-05-05] MEDS: levoFLOXacin 750 MG/150 ML PIGGYBACK 100 MG IV (19:42)
[2018-05-05] MEDS: CEFTRIAXONE 1 GM/50 ML FROZ.PIGGY IV (20:03)
[2018-05-05 20:29] LABS: Bacteria Urine Many (>30); Culture Indicated Urine Specimen Cultured; RBC Urine 0-1/HPF (0-5/HPF); Squamous Epithelial Cell Urine None Seen; WBC Urine 10-30/HPF (0-5/HPF)
--- NOTE | 2018-05-05 21:59 | PM.HP.1 ---
History of Present Illness Date Patient Seen: 05/05/18 Time Patient Seen: 22:00 Chief complaint: CAN'T EAT,HEADACHE,COUGH,HARD TO BREATHE Narrative: 82-year-old male presents with increasing cough and shortness of breath malaise dyspnea. He was actually seen in the clinic on Monday of this past week I saw him there he quit complaining of increasing cough and difficulty breathing. He actually had been having cough symptoms for several months but got specifically worse over the last week or 2. When I saw him in the clinic on Monday I felt that he needed a CT scan of the lungs and orders a CT high-resolution. He did not get that done for uncertain reasons the chart notes say that he was too busy during the week to get it done but anyway he had worsening of symptoms and was seen again in the clinic by the physician phlebotomist medical lab assistant have her on Monday. X-ray of the chest was done which showed what looks like to be pneumonia and he was told to come to the hospital ER for evaluation. He came in today for evaluation in the ER a CT scan was done which showed infiltrates bilateral worse on the left. He denies any fevers but does complain of these increasing symptoms over the past couple of weeks and now to the point where he can hardly walk because of shortness of breath. Patient History Medical History Bleeding ulcer (Acute) Hypertension (Acute) Thyroid nodule (Acute) Chronic gout (Chronic) Chronic kidney disease (CKD) stage G3a/A1, moderately decreased glomerular filtration rate (GFR) between 45-59 mL/min/1.73 square meter and albuminuria creatinine ratio less than 30 mg/g (Chronic) Diabetes type 2, controlled (Chronic) Heart attack (Chronic) Hyperlipidemia (Chronic) Left bundle branch block (Chronic) 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) Surgical History H/O sinus surgery (Acute) History of brain surgery (Acute) History of cholecystectomy (Chronic) S/P CABG x 4 (Chronic) Family & Social History Social History: household members spouse Prior Living Arrangements House Safety & Behavioral: Feels Safe in Current Yes Environment Been Physically Hurt or No Threatened By a Person Suicidal Ideation Description None Suicide Plan Description No Plan Tobacco & Substance use: Smoking Status Never smoker alcohol intake never Substance Use Type does not use Meds Allergies Allergy/AdvReac Type Severity Reaction Status Date / Time tolmetin Allergy Severe Anaphylaxis Verified 05/05/18 21:29 Review of Systems Constitutional Constitutional: Reports anorexia, Reports body ache(s), Reports fatigue and Reports poor appetite Eyes Eyes: Reports system reviewed; no additional complaints, except as documented ENT Ears, Nose, Mouth, and Throat: Yes dizziness and Yes sinus pressure Cardiovascular Cardiovascular: Denies chest pain, Denies chest pain at rest, Denies foot swelling, Reports shortness of breath and Reports shortness of breath with activity Respiratory Respiratory: Reports chest congestion, Reports cough, Reports pain on inspiration, Reports pain with cough, Reports dyspnea and Reports dyspnea on exertion Gastrointestinal Gastrointestinal: Reports system reviewed and no additional complaints, except as documented Genitourinary Genitourinary: Reports system reviewed and no additional complaints, except as documented Musculoskeletal Musculoskeletal: Reports system reviewed; no additional complaints, except as documented Integumentary/Breasts Skin/Breast: Reports system reviewed and no additional complaints, except as documented Neurologic Neurologic: Reports system reviewed and no additional complaints, except as documented and Reports dizziness Psychiatric Psychiatric: Reports system reviewed and no additional complaints, except as documented Endocrine Endocrine: Reports system reviewed and no additional complaints, except as documented and Reports fatigue Hematologic/Lymphatic Hematologic/Lymphatic: Reports system reviewed and no additional complaints, except as documented Allergic/Immunologic Allergic/Immunologic: Reports system reviewed and no additional complaints, except as documented Exam Vital Signs (past 8 hours): - 05/05/18 15:56 05/05/18 19:58 05/05/18 21:15 Temperature 96.8 F L 98.2 F Pulse Rate 100 H 101 H 103 H Respiratory Rate 20 15 21 Blood Pressure 108/64 144/83 H Blood Pressure [Left Arm] 142/82 H Pulse Oximetry 91 92 94 05/05/18 21:16 05/05/18 21:20 Temperature 98.2 F Pulse Rate 103 H 100 H Respiratory Rate 21 17 Blood Pressure 144/83 H 130/76 Blood Pressure [Left Arm] Pulse Oximetry 94 93 Oxygen Delivery Method Nasal Cannula Oxygen Flow Rate 2 Narrative Exam Narrative: Patient is ill-appearing Oropharynx clear mucous membranes dry Lungs rhonchi throughout and decreased breath sounds in left base Heart tachycardic Abdomen soft nontender no masses bowel sounds present Lower extremities trace edema Skin warm and dry Neuro exam awake alert oriented no focal deficits Objective Labs Result Diagrams: 05/05/18 16:07 05/05/18 16:07 Labs: Laboratory Results - last 24 hr 05/05/18 05/05/18 05/05/18 16:07 16:07 16:07 WBC 31.1 H* RBC 3.68 L Hgb 11.5 L Hct 35.0 L MCV 95.2 MCH 31.3 MCHC 32.9 RDW 14.7 Plt Count 412 H Neut % (Auto) Not Reportable Lymph % (Auto) Not Reportable [place] % (Auto) Not Reportable Eos % (Auto) Not Reportable Baso % (Auto) Not Reportable Total Counted 100 Seg Neutrophils % 85.0 H Band Neutrophils % 1.0 L Lymphocytes % (Manual) 4.0 L Atypical Lymphs % 4.0 H Monocytes % (Manual) 5.0 Eosinophils % (Manual) 1.0 L Neutrophils # (Manual) 56613 H RBC Morphology Normal morphology Sodium 137 Potassium 4.6 Chloride 99 Carbon Dioxide 22 BUN 86 H Creatinine 2.20 H Estimated GFR 28.9 L BUN/Creatinine Ratio 39.1 H Glucose 203 H Lactate Calcium 9.4 Total Bilirubin 1.3 AST 200 H ALT 181 H Alkaline Phosphatase 123 Total Creatine Kinase 127 CK-MB (CK-2) 3.23 H CK-MB (CK-2) Rel Index 2.5 Troponin I < 0.012 B-Natriuretic Peptide 89.9 Total Protein 7.3 Albumin 3.6 Globulin 3.7 Albumin/Globulin Ratio 1.0 Procalcitonin 3.29 H Urine RBC Urine WBC Ur Squamous Epith Cells Urine Bacteria Ur Culture Indicated? Micro UA Comment Influenza A & B (PCR) 05/05/18 05/05/18 05/05/18 16:07 17:00 19:50 WBC RBC Hgb Hct MCV MCH MCHC RDW Plt Count Neut % (Auto) Lymph % (Auto) [place] % (Auto) Eos % (Auto) Baso % (Auto) Total Counted Seg Neutrophils % Band Neutrophils % Lymphocytes % (Manual) Atypical Lymphs % Monocytes % (Manual) Eosinophils % (Manual) Neutrophils # (Manual) RBC Morphology Sodium Potassium Chloride Carbon Dioxide BUN Creatinine Estimated GFR BUN/Creatinine Ratio Glucose Lactate 1.5 Calcium Total Bilirubin AST ALT Alkaline Phosphatase Total Creatine Kinase CK-MB (CK-2) CK-MB (CK-2) Rel Index Troponin I B-Natriuretic Peptide Total Protein Albumin Globulin Albumin/Globulin Ratio Procalcitonin Urine RBC 0-1/hpf Urine WBC 10-30/hpf H Ur Squamous Epith Cells None seen Urine Bacteria Many (>30) H Ur Culture Indicated? Specimen cultured Micro UA Comment Not Reportable Influenza A & B (PCR) Negative Assessment & Plan Plan: Assessment/Plan Narrative: One. Pneumonia CT scan showing bilateral infiltrates worse on the left. White count [id number] he is somewhat hypoxic. Presentation is somewhat atypical. Plan to place him on ceftriaxone and azithromycin initially. I think he would benefit from a contrasted CT scan to rule out empyema and other underlying pulmonary abnormalities such as a mass. His procalcitonin level is elevated plan to check blood cultures and sputum culture also room air blood gas 2. History of systolic heart failure seems to be compensated BNP was normal 3. Diabetes type 2 worsening control recently secondary to underlying infection. Plan to place him back on his NPH hold the metformin for now and as needed NovoLog 4. Chronic kidney disease with increasing BUN and creatinine secondary to hip 3 renal factors most likely. Plan to rehydrate with IV fluids. 5. Coronary artery disease history of CABG in the past in and also left bundle branch block. No signs of ongoing ischemia. 6. Code status patient would like to be DNR. Quality VTE Deep Vein Thrombosis/Pulmonary Embolism Present on Admission: No
[2018-05-05] MEDS: ALBUTEROL 2.5 MG/3 ML NEB (ADULT) INH (22:09)
[2018-05-05 22:27] LABS: HCO3 ABG 22 mmol/L (23-27); PCO2 ABG 28.3 mmHg (35-45); PO2 ABG 68 mmHg (80-105); TCO2 ABG 22 mmol/L (23-27); pH ABG 7.49 (7.35-7.45)
[2018-05-05 22:28] LABS: Fractionated Inspired Oxygen 24; Oxygen Saturation ABG 95 % (95-100)
[2018-05-05] MEDS: SODIUM CHLORIDE 0.9% 1,000 ML 100 ML IV (22:28)
--- NOTE | 2018-05-05 22:38 | PC.NURSE ---
ADMISSION Received pt at approximately 0 via [employer], accompanied by ED RN. Ox3, slightly [place] but wears bilateral hearing aids. pt SOB with activity, able to stand-pivot transfer from rshevlin to bed with 1P assist but takes it very slow. breath sounds with coarse crackles/rhonchi to L side throughout. c/o L rib pain rated 8/10. telemetry monitoring placed per MD orders. pt unsure about full medical history and home medications, states has his billfold with all his information. attempted to call pt's but no answer. pt received 1g IV rocephin in ED but MD ordered 2g to be infused, called to verify, awaiting call back from Dr. Mae. pt oriented to room. call light within reach.
[2018-05-05] MEDS: CEFTRIAXONE 2 GM/50 ML FROZ.PIGGY IV (23:02)
[2018-05-05] MEDS: ATORVASTATIN 20 MG TABLET 40 MG PO (23:02)
[2018-05-06] VITALS (15 sets, daily range): BP systolic 108–138; BP diastolic 59–78; PULSE 83–102; RESP 16–22; TEMP 36.3–36.9; O2SAT 90–94
[2018-05-06] MEDS: INSULIN ASPART 100 UNIT/ML INSULN PEN SUBCUT ×4 (00:32→17:23)
[2018-05-06] MEDS: OXYCODONE IR 5 MG TABLET PO ×4 (00:46→19:25)
[2018-05-06] MEDS: AZITHROMYCIN 250 MG in DEXTROSE 5% IN WATER 250 ML IV ×2 (01:45→22:44)
--- NOTE | 2018-05-06 01:54 | PC.NURSE ---
Addendum entered by Jackie Harrington R.N. 05/06/18 06:47: Medicated with Oxycodone for 6/10 left rib pain. Original Note: Addendum entered by Jackie Harrington R.N. 05/06/18 06:27: O2 sat 91% on 2L/min oxygen so increased to 2.5L/min and sat now at 92%. States pain is better at 6/10; will medicate when pain medication available. Original Note: Addendum entered by Jackie Harrington R.N. 05/06/18 02:22: 0140 Patient was being assisted to stand at side of bed to urinate. STEAM TRAIN DRIVER called to report HR up into 160 range during this time. Once back to bed HR returned to upper 90's. Original Note: 0100 Patient is oriented except does not know day of month. Is [place] and wears bilateral hearing aids which are out for the night. Breath sounds with coarse crackles and diminished breath sounds on left and has a moist, loose sounding intermittent cough which has been non productive. HR irregular; on telemetry was ST w/BBB, PAC's and PVC's. Denies nausea. BT present and abdomen is soft but protuberant. States he has urinary urgency and sometimes has been incontinent of urine as not able to make it to bathroom in time; needs to housekeeping room attendant order to use urinal. Complains of 8/10 left rib pain which he states started along with cough about 1 week ago; medicated with Oxycodone and declines offer of either cold or warm pack. Fall risk score is moderate; bed alarm on as patient is impulsive due to urinary urgency.
[2018-05-06] MEDS: PANTOPRAZOLE 40 MG TABLET PO (06:45)
[2018-05-06] MEDS: ALBUTEROL 2.5 MG/3 ML NEB (ADULT) INH ×3 (07:01→14:27)
[2018-05-06] MEDS: SODIUM CHLORIDE 0.9% 1,000 ML 100 ML IV ×2 (07:39→18:31)
[2018-05-06 07:45] LABS: Alanine Aminotransferase 542 IU/L (21-72); Albumin Globulin Ratio 0.9 (1.0-2.8); Alkaline Phosphatase 152 U/L (38-126); Aspartate Aminotransferase 700 IU/L (17-59); BUN Creatinine Ratio 42.5 (6-22); Bilirubin Total 1.6 mg/dL (0.2-1.3); Blood Urea Nitrogen 68 mg/dL (9-20); Calcium 8.6 mg/dL (8.4-10.2); Carbon Dioxide 22 mmol/L (22-32); Chloride 103 mmol/L (98-107); Estimated Glomerular Filt Rate 41.8 mL/min (>60); Globulin 3.4 g/dL (1.7-4.1); Glucose 194 mg/dL (80-110); HEMOLYSIS < 15 (0-50); Potassium 4.4 mmol/L (3.4-5.1); Sodium 136 mmol/L (137-145); Total Protein 6.4 g/dL (6.3-8.2)
[2018-05-06 07:52] LABS: Add Manual Diff / Slide Review NO; Basophils Percent Auto 0.2 % (0-2); Eosinophils Percent Auto 0.9 % (2-4); Hematocrit 31.6 % (41-53); Hemoglobin 10.5 g/dL (13.5-17.5); Lymphocytes Percent Auto 4.6 % (25-40); Mean Corpuscular HGB Conc 33.2 % (30-36); Mean Corpuscular Hemoglobin 31.4 PG (26-34); Mean Corpuscular Volume 94.5 fL (80-100); Neutrophils Absolute Auto 21800 /uL (3000-5900); Neutrophils Percent Auto 87.3 % (50-75); Platelet Count 344 X10^3/uL (150-400); Red Blood Cell Count 3.34 X10^6/uL (4.5-5.9); Red Cell Distribution Width 14.6 % (11.6-14.8)
[2018-05-06] MEDS: INSULIN NPH 100 UNIT/ML VIAL 25 UNIT SUBCUT ×2 (10:08→17:22)
[2018-05-06] MEDS: CLOPIDOGREL 75 MG TABLET PO (10:15)
[2018-05-06] MEDS: METOPROLOL ER 50 MG TABLET PO (10:16)
[2018-05-06] MEDS: ENOXAPARIN 30 MG/0.3 ML SYRINGE SUBCUT (10:16)
[2018-05-06] MEDS: ALLOPURINOL 100 MG TABLET PO (10:16)
[2018-05-06] MEDS: LOSARTAN 50 MG TABLET PO (10:16)
[2018-05-06] MEDS: TAMSULOSIN 0.4 MG CAPSULE PO (10:17)
[2018-05-06] MEDS: FLUTICASONE/SALMETEROL 250/50 14 PUFF DISKUS INH (10:42)
--- NOTE | 2018-05-06 11:02 | PC.NURSE ---
Contact precautions initiated after gram negative bacilli in urine.
--- NOTE | 2018-05-06 13:10 | P.PN_ITS ---
Subjective Date Patient Seen: 05/06/18 Time Patient Seen: 13:08 Interval history: FOLLOW UP ON COMMUNITY ACQUIRED PNA Patient seen at bedside. Overnight required increase in O2 needs, and NC O2 was bumped up to 4L and patient is requiring scheduled nebulizer treatments. Continues to be afebrile. Continues to complain of intermittent SOB, especially when O2 is weaned off. Denies chest pain, nausea, vomiting. Exam Vital Signs (past 8 hours): - 05/06/18 06:00 05/06/18 06:27 05/06/18 07:00 Temperature 98.5 F Pulse Rate 97 H Respiratory Rate 20 Blood Pressure 134/78 Pulse Oximetry 91 92 93 05/06/18 07:04 05/06/18 07:20 05/06/18 08:00 Temperature 97.3 F L Pulse Rate 96 H 98 H Respiratory Rate 18 20 Blood Pressure 126/70 Pulse Oximetry 90 L 92 91 05/06/18 10:49 05/06/18 12:00 Temperature 97.7 F Pulse Rate 91 H 92 H Respiratory Rate 20 20 Blood Pressure 119/65 Pulse Oximetry 92 93 Fraction of Inspired Oxygen 32 Oxygen Delivery Method Nasal Cannula Oxygen Flow Rate 4 Narrative Exam Narrative: General: Mild distress, AAOx3 HEENT: PERRLA BL, EOMI BL Neck: Supple, no LAD or JVD CV: RRR, no murmurs or gallops Resp: Rhonchorous coarse breath sounds in all lung baltazar. No wheezes appreciated. GI: +BS, soft, nontender MSK: Moves all extremities Skin: no lesions or bruising Neuro: NFD Psych: Appropriate mood, able to make his own decisions Objective Labs Result Diagrams: 05/06/18 06:08 05/06/18 07:00 Labs: Laboratory Results - last 24 hr 05/05/18 05/05/18 05/05/18 16:07 16:07 16:07 WBC 31.1 H* RBC 3.68 L Hgb 11.5 L Hct 35.0 L MCV 95.2 MCH 31.3 MCHC 32.9 RDW 14.7 Plt Count 412 H Neut % (Auto) Not Reportable Lymph % (Auto) Not Reportable [place] % (Auto) Not Reportable Eos % (Auto) Not Reportable Baso % (Auto) Not Reportable Neut # (Auto) Total Counted 100 Seg Neutrophils % 85.0 H Band Neutrophils % 1.0 L Lymphocytes % (Manual) 4.0 L Atypical Lymphs % 4.0 H Monocytes % (Manual) 5.0 Eosinophils % (Manual) 1.0 L Neutrophils # (Manual) 81060 H RBC Morphology Normal morphology ABG pH ABG pCO2 ABG pO2 ABG HCO3 ABG Total CO2 ABG O2 Saturation ABG Base Excess FiO2 Sodium 137 Potassium 4.6 Chloride 99 Carbon Dioxide 22 BUN 86 H Creatinine 2.20 H Estimated GFR 28.9 L BUN/Creatinine Ratio 39.1 H Glucose 203 H Lactate Calcium 9.4 Total Bilirubin 1.3 AST 200 H ALT 181 H Alkaline Phosphatase 123 Total Creatine Kinase 127 CK-MB (CK-2) 3.23 H CK-MB (CK-2) Rel Index 2.5 Troponin I < 0.012 B-Natriuretic Peptide 89.9 Total Protein 7.3 Albumin 3.6 Globulin 3.7 Albumin/Globulin Ratio 1.0 Procalcitonin 3.29 H Urine RBC Urine WBC Ur Squamous Epith Cells Urine Bacteria Ur Culture Indicated? Micro UA Comment Influenza A & B (PCR) 05/05/18 05/05/18 05/05/18 16:07 17:00 19:50 WBC RBC Hgb Hct MCV MCH MCHC RDW Plt Count Neut % (Auto) Lymph % (Auto) [place] % (Auto) Eos % (Auto) Baso % (Auto) Neut # (Auto) Total Counted Seg Neutrophils % Band Neutrophils % Lymphocytes % (Manual) Atypical Lymphs % Monocytes % (Manual) Eosinophils % (Manual) Neutrophils # (Manual) RBC Morphology ABG pH ABG pCO2 ABG pO2 ABG HCO3 ABG Total CO2 ABG O2 Saturation ABG Base Excess FiO2 Sodium Potassium Chloride Carbon Dioxide BUN Creatinine Estimated GFR BUN/Creatinine Ratio Glucose Lactate 1.5 Calcium Total Bilirubin AST ALT Alkaline Phosphatase Total Creatine Kinase CK-MB (CK-2) CK-MB (CK-2) Rel Index Troponin I B-Natriuretic Peptide Total Protein Albumin Globulin Albumin/Globulin Ratio Procalcitonin Urine RBC 0-1/hpf Urine WBC 10-30/hpf H Ur Squamous Epith Cells None seen Urine Bacteria Many (>30) H Ur Culture Indicated? Specimen cultured Micro UA Comment Not Reportable Influenza A & B (PCR) Negative 05/05/18 05/06/18 05/06/18 22:02 06:08 07:00 WBC 25.0 H RBC 3.34 L Hgb 10.5 L Hct 31.6 L MCV 94.5 MCH 31.4 MCHC 33.2 RDW 14.6 Plt Count 344 Neut % (Auto) 87.3 H Lymph % (Auto) 4.6 L [place] % (Auto) 7.0 Eos % (Auto) 0.9 L Baso % (Auto) 0.2 Neut # (Auto) 92736 H Total Counted Seg Neutrophils % Band Neutrophils % Lymphocytes % (Manual) Atypical Lymphs % Monocytes % (Manual) Eosinophils % (Manual) Neutrophils # (Manual) RBC Morphology ABG pH 7.49 H ABG pCO2 28.3 L ABG pO2 68 L ABG HCO3 22 L ABG Total CO2 22 L ABG O2 Saturation 95 ABG Base Excess -2.0 FiO2 24 Sodium 136 L Potassium 4.4 Chloride 103 Carbon Dioxide 22 BUN 68 H Creatinine 1.60 H Estimated GFR 41.8 L BUN/Creatinine Ratio 42.5 H Glucose 194 H Lactate Calcium 8.6 Total Bilirubin 1.6 H AST 700 H ALT 542 H Alkaline Phosphatase 152 H Total Creatine Kinase CK-MB (CK-2) CK-MB (CK-2) Rel Index Troponin I B-Natriuretic Peptide Total Protein 6.4 Albumin 3.0 L Globulin 3.4 Albumin/Globulin Ratio 0.9 L Procalcitonin Urine RBC Urine WBC Ur Squamous Epith Cells Urine Bacteria Ur Culture Indicated? Micro UA Comment Influenza A & B (PCR) Assessment & Plan Plan: Assessment/Plan Narrative: 1. Community-acquired pneumonia -patient continues to be afebrile, leukocytosis improving, now down to 25 -patient is hemodynamically stable -CT chest scan revealed bilateral infiltrates, left worse than right, consistent with pneumonia (however interval follow-up is recommended to rule out tumors) -ABG on admission showed 7.49/, and patient was placed on oxygen therapy, now requiring 4 L -continue IV ceftriaxone and azithromycin at this time, continue to monitor for improvement -unable to perform CT chest with IV contrast at this time as patient's renal function is not back to baseline.... Consider in the near future -DuoNeb as per Respiratory therapy 2. Chronic systolic CHF -not in acute exacerbation -BNP 89, clinically euvolemic -continue losartan, atorvastatin, metoprolol 3. Diabetes type 2 - BG still elevated, likely due to underlying infection - continue insulin NPH and NovoLog sliding scale -frequent Accu-Cheks, hypoglycemia protocol 4. SRINIVAS on Chronic kidney disease - Improving, likely due to dehydration - BUN 68, Cr 1.6 - continue IV fluids at 100 cc/hour -continue to monitor renal function 5. Coronary artery disease - s/p CABG in the past - continue metoprolol, Plavix, atorvastatin, losartan 6. Hyperlipidemia -continue atorvastatin 7. Hypertension -patient is currently blood pressure controlled -continue IV fluids 100 cc/hour, as well as metoprolol and losartan DNR/DNI 20 min spent evaluating and providing care for this patient Quality VTE Deep Vein Thrombosis/Pulmonary Embolism Present on Admission: No
--- NOTE | 2018-05-06 14:27 | CM.DANOTE ---
Discharge Planning/Care Management Met with patient: Patient lying on bed on 3L of o2. Patient does not use o2 at baseline. Patient verified he resides with his spouse and is completely independent. Patient stated two years ago he had a SNF stay at [facility]. No other community needs. Patient is expecting to discharge home. SW explained patient may benefit from PT eval prior to discharge as patient is much weaker than his baseline. Patient agreeable. CM to discuss with MD when medically appropriate. Plan: Follow. Patient's goal is to discharge home when medically stable. CM Discharge Assessment Start: 05/06/18 14:24 Freq: Status: Active Protocol: Document 05/06/18 14:24 (Rec: 05/06/18 14:27 [id number]) Discharge Planning Assessment Assigned Cost Recorder SARAH Morgan Advance Directives? Yes Advance Directives on File No History Provided By Patient Medical Record Has Patient been admitted in last 30 No days? Prior Living Arrangements House Household Members spouse Type of transporation used prior to Drives own vehicle admit Independent with ADL's Yes Is patient alert and oriented? Yes Caregiver for Another No Barriers to Discharge No Discharge Plan Home Transportation Arrangement Spouse to provide Referrals Initiated None needed Whiteboard Updated in Patient Room with Yes name and ext. # of Cost Recorder Review Status In Process Please Provide Date Initial DC 05/06/18 Assessment Was Performed Next Review Type Continued Stay Review
[2018-05-06] MEDS: ACETAMINOPHEN 325 MG TABLET 650 MG PO (17:24)
[2018-05-06] MEDS: CEFTRIAXONE 2 GM/50 ML FROZ.PIGGY IV (22:02)
[2018-05-06] MEDS: ATORVASTATIN 20 MG TABLET 40 MG PO (22:03)
[2018-05-07] VITALS (12 sets, daily range): BP systolic 128–153; BP diastolic 66–85; PULSE 80–96; RESP 16–20; TEMP 36.2–36.8; O2SAT 86–96
[2018-05-07] MEDS: OXYCODONE IR 5 MG TABLET PO ×4 (02:57→22:08)
[2018-05-07 06:06] LABS: Add Manual Diff / Slide Review NO; Basophils Percent Auto 0.1 % (0-2); Eosinophils Percent Auto 1.6 % (2-4); Hematocrit 30.6 % (41-53); Hemoglobin 10.1 g/dL (13.5-17.5); Lymphocytes Percent Auto 4.3 % (25-40); Mean Corpuscular Hemoglobin 31.2 PG (26-34); Mean Corpuscular Volume 94.6 fL (80-100); Monocytes Percent Auto 9.9 % (3-14); Neutrophils Absolute Auto 19000 /uL (3000-5900); Neutrophils Percent Auto 84.1 % (50-75); Platelet Count 366 X10^3/uL (150-400); Red Blood Cell Count 3.24 X10^6/uL (4.5-5.9); Red Cell Distribution Width 14.8 % (11.6-14.8); White Blood Cell Count 22.6 X10^3/uL (4.5-11.0)
[2018-05-07 06:13] LABS: BUN Creatinine Ratio 31.5 (6-22); Blood Urea Nitrogen 41 mg/dL (9-20); Calcium 8.7 mg/dL (8.4-10.2); Carbon Dioxide 23 mmol/L (22-32); Chloride 107 mmol/L (98-107); Estimated Glomerular Filt Rate 53.1 mL/min (>60); Glucose 139 mg/dL (80-110); HEMOLYSIS < 15 (0-50); Potassium 4.3 mmol/L (3.4-5.1); Sodium 141 mmol/L (137-145)
[2018-05-07] MEDS: ALBUTEROL 2.5 MG/3 ML NEB (ADULT) INH ×3 (06:15→19:49)
[2018-05-07] MEDS: FLUTICASONE/SALMETEROL 250/50 14 PUFF DISKUS INH ×2 (06:16→19:49)
[2018-05-07] MEDS: PANTOPRAZOLE 40 MG TABLET PO (06:40)
[2018-05-07] MEDS: SODIUM CHLORIDE 0.9% 1,000 ML 100 ML IV ×2 (06:51→16:22)
[2018-05-07] MEDS: METOPROLOL ER 50 MG TABLET PO (09:38)
[2018-05-07] MEDS: CLOPIDOGREL 75 MG TABLET PO (09:38)
[2018-05-07] MEDS: ENOXAPARIN 30 MG/0.3 ML SYRINGE SUBCUT (09:38)
[2018-05-07] MEDS: ALLOPURINOL 100 MG TABLET PO (09:38)
[2018-05-07] MEDS: INSULIN NPH 100 UNIT/ML VIAL 25 UNIT SUBCUT ×2 (09:39→16:19)
[2018-05-07] MEDS: TAMSULOSIN 0.4 MG CAPSULE PO (09:39)
[2018-05-07] MEDS: LOSARTAN 50 MG TABLET PO (09:39)
[2018-05-07] MEDS: ACETAMINOPHEN 325 MG TABLET 650 MG PO ×3 (09:39→22:09)
[2018-05-07] MEDS: INSULIN ASPART 100 UNIT/ML INSULN PEN SUBCUT ×3 (09:40→16:16)
--- NOTE | 2018-05-07 11:07 | CM.DPC ---
DCP/continued: Reviewed chart. Briefly met with patient this AM to introduce CM/SW role and discuss d/c planning. Patient remains on 02 approximately 2 liters which is not his baseline. Patient reports that he resides with his spouse/[place] in [place]. Currently patient's MIL also lives at residence but is currently being moved to [facility] by family. Patient complains of generalized weakness. CATERING SERVER asked MD in AM rounds if PT evaluation could be ordered when patient medically appropriate to get out of bed. MD agreed. P: Pending. anticipate that patient will return home pending progress. PT evaluation recommended to determine recommendations. Continue to follow closely. SARAH Pérez
--- NOTE | 2018-05-07 12:50 | PM.PN.1 ---
Subjective Date Patient Seen: 05/07/18 Time Patient Seen: 12:51 Interval history: FOLLOW UP ON COMMUNITY ACQUIRED PNA Patient seen at bedside. Saturations adequate on 2L but desaturates to 80s when trying to titrate off. No overnight events. Exam Vital Signs (past 8 hours): - 05/07/18 05:50 05/07/18 06:19 05/07/18 08:15 Temperature 98.3 F 97.2 F L Pulse Rate 93 H 96 H 95 H Respiratory Rate 18 18 Blood Pressure 129/85 153/77 H Pulse Oximetry 93 96 93 05/07/18 09:30 05/07/18 10:19 05/07/18 11:25 Temperature 98.1 F Pulse Rate 81 Respiratory Rate 18 Blood Pressure 134/66 Pulse Oximetry 93 92 91 Fraction of Inspired Oxygen 32 Oxygen Delivery Method Room Air Oxygen Flow Rate 2 Narrative Exam Narrative: General: Mild distress, AAOx3 HEENT: PERRLA BL, EOMI BL Neck: Supple, no LAD or JVD CV: RRR, no murmurs or gallops Resp: Rhonchorous coarse breath sounds in all lung baltazar, similar as before. No wheezes appreciated. GI: +BS, soft, nontender MSK: Moves all extremities Skin: no lesions or bruising Neuro: NFD Psych: Appropriate mood, able to make his own decisions Objective Labs Result Diagrams: 05/07/18 05:30 05/07/18 05:30 Labs: Laboratory Results - last 24 hr 05/07/18 05/07/18 05:30 05:30 WBC 22.6 H RBC 3.24 L Hgb 10.1 L Hct 30.6 L MCV 94.6 MCH 31.2 MCHC 33.0 RDW 14.8 Plt Count 366 Neut % (Auto) 84.1 H Lymph % (Auto) 4.3 L [place] % (Auto) 9.9 Eos % (Auto) 1.6 L Baso % (Auto) 0.1 Neut # (Auto) 87161 H Sodium 141 Potassium 4.3 Chloride 107 Carbon Dioxide 23 BUN 41 H Creatinine 1.30 H Estimated GFR 53.1 L BUN/Creatinine Ratio 31.5 H Glucose 139 H Calcium 8.7 Assessment & Plan Plan: Assessment/Plan Narrative: 1. Acute hypoxic respiratory failure - Likely due to pneumonia - Continue O2 and Nebs. Titrate as tolerated 2. Community-acquired pneumonia -patient continues to be afebrile, leukocytosis improving, now down to 22 -patient is hemodynamically stable -CT chest scan revealed bilateral infiltrates, left worse than right, consistent with pneumonia (however interval follow-up is recommended to rule out tumors) -ABG on admission showed 7.49/, and patient was placed on oxygen therapy, still needs 2L O2 -blood cultures prelim negative. Sputum cultures not done (will attempt to induce sputum) -continue IV ceftriaxone and azithromycin at this time, continue to monitor for improvement -unable to perform CT chest with IV contrast at this time as patient's renal function is not back to baseline.... Consider in the near future -DuoNeb as per Respiratory therapy 3. Chronic systolic CHF -not in acute exacerbation -BNP 89, clinically euvolemic -continue losartan, atorvastatin, metoprolol 4. Diabetes type 2 - BG improved - continue insulin NPH and NovoLog sliding scale -frequent Accu-Cheks, hypoglycemia protocol 5. SRINIVAS on Chronic kidney disease - Improving, likely due to dehydration - BUN 68, Cr 1.6->1.3 - continue IV fluids at 100 cc/hour -continue to monitor renal function 6. Coronary artery disease - s/p CABG in the past - continue metoprolol, Plavix, atorvastatin, losartan 7. Hyperlipidemia -continue atorvastatin 8. Hypertension -patient is currently blood pressure controlled -continue IV fluids 100 cc/hour, as well as metoprolol and losartan 9. UTI - Urine cultures grew E Coli - Continue Ceftriaxone IV at this time until sensitivities are back DNR/DNI 20 min spent evaluating and providing care for this patient Quality VTE Deep Vein Thrombosis/Pulmonary Embolism Present on Admission: No
[2018-05-07] MEDS: ATORVASTATIN 20 MG TABLET 40 MG PO (20:59)
[2018-05-07] MEDS: CEFTRIAXONE 2 GM/50 ML FROZ.PIGGY IV (21:41)
[2018-05-07] MEDS: AZITHROMYCIN 250 MG in DEXTROSE 5% IN WATER 250 ML IV (22:08)
[2018-05-08] VITALS (14 sets, daily range): BP systolic 129–153; BP diastolic 62–88; PULSE 80–100; RESP 18–24; TEMP 36.5–36.7; O2SAT 92–100
--- NOTE | 2018-05-08 02:40 | PC.NURSE ---
Addendum entered by Jackie Harrington R.N. 05/08/18 06:39: Medicated around 0400 for left rib pain and now states pain is 7/10 so medicated with Tylenol and ice pack applied. Repositioned onto left side as he states that helps the pain as splints the area when he coughs. Original Note: Patient is alert and oriented except to day of month; I'm retired, I don't need to know that. Breath sounds clear on left but has inspiratory crackles and expiratory wheezes in right mid/lower lobes. On oxygen at 3L/min per NC with sat of 93%. Is SOB at rest as well as with exertion but can speak in complete sentences. HRR; telemetry reading was SR/BBB with PAC's. Denies nausea. BT present and is passing flatus but has not had a BM since 05/04. Voiding per urinal; has urinary urgency so is wearing a pull up but has been continent this shift. Is able to turn but takes great effort and prefers to lie on back. Complains of 6/10 left rib pain exacerbated by cough; had pain meds at 2210 so knows he can have additional pain med at 0400. Fall risk score is medium; due to impulsiveness when first admitted bed alarm is being used. Reportedly has been refusing to get out of bed and seems to have generalized weakness.
[2018-05-08] MEDS: SODIUM CHLORIDE 0.9% 1,000 ML 100 ML IV ×2 (04:07→13:44)
[2018-05-08] MEDS: OXYCODONE IR 5 MG TABLET PO ×3 (04:07→18:29)
[2018-05-08 06:09] LABS: Add Manual Diff / Slide Review NO; Basophils Percent Auto 0.1 % (0-2); Eosinophils Percent Auto 1.6 % (2-4); Hematocrit 30.7 % (41-53); Hemoglobin 10.2 g/dL (13.5-17.5); Lymphocytes Percent Auto 4.2 % (25-40); Mean Corpuscular HGB Conc 33.2 % (30-36); Mean Corpuscular Hemoglobin 31.6 PG (26-34); Mean Corpuscular Volume 95.1 fL (80-100); Monocytes Percent Auto 11.2 % (3-14); Neutrophils Absolute Auto 17100 /uL (3000-5900); Neutrophils Percent Auto 82.9 % (50-75); Platelet Count 375 X10^3/uL (150-400); Red Blood Cell Count 3.23 X10^6/uL (4.5-5.9); Red Cell Distribution Width 14.8 % (11.6-14.8); White Blood Cell Count 20.6 X10^3/uL (4.5-11.0)
[2018-05-08 06:18] LABS: BUN Creatinine Ratio 23.3 (6-22); Blood Urea Nitrogen 28 mg/dL (9-20); Calcium 8.7 mg/dL (8.4-10.2); Carbon Dioxide 23 mmol/L (22-32); Chloride 108 mmol/L (98-107); Estimated Glomerular Filt Rate 58.3 mL/min (>60); Glucose 110 mg/dL (80-110); HEMOLYSIS < 15 (0-50); Potassium 4.6 mmol/L (3.4-5.1); Sodium 142 mmol/L (137-145)
[2018-05-08] MEDS: ACETAMINOPHEN 325 MG TABLET 650 MG PO ×2 (06:20→12:16)
[2018-05-08] MEDS: PANTOPRAZOLE 40 MG TABLET PO (06:21)
[2018-05-08] MEDS: ALBUTEROL 2.5 MG/3 ML NEB (ADULT) INH ×3 (10:00→21:29)
[2018-05-08] MEDS: FLUTICASONE/SALMETEROL 250/50 14 PUFF DISKUS INH ×2 (10:00→21:30)
--- NOTE | 2018-05-08 10:17 | RT ---
Addendum entered by Doron Garland, RT 05/08/18 15:02: continues to have no significant sputum production, just clear frothy saliva, even after strong, moist cough. Pt uses acapella often. Informed hospitalist pt has no sputum; I requested and obtained scheduled mucinex 600 mg BID for pt. Original Note: Pt has strong, nonprod cough. Pt has intense R pleoritic pain with cough due to soreness. Encouraged to increased acapella use more often. Nurse Vivien informed.
[2018-05-08] MEDS: LOSARTAN 50 MG TABLET PO (10:30)
[2018-05-08] MEDS: ALLOPURINOL 100 MG TABLET PO (10:30)
[2018-05-08] MEDS: TAMSULOSIN 0.4 MG CAPSULE PO (10:31)
[2018-05-08] MEDS: METOPROLOL ER 50 MG TABLET PO (10:31)
[2018-05-08] MEDS: CLOPIDOGREL 75 MG TABLET PO (10:31)
[2018-05-08] MEDS: ENOXAPARIN 30 MG/0.3 ML SYRINGE SUBCUT (10:31)
[2018-05-08] MEDS: INSULIN NPH 100 UNIT/ML VIAL 25 UNIT SUBCUT ×2 (10:32→18:24)
[2018-05-08] MEDS: INSULIN ASPART 100 UNIT/ML INSULN PEN SUBCUT ×2 (12:15→18:24)
--- NOTE | 2018-05-08 14:01 | P.PN_ITS ---
Subjective Date Patient Seen: 05/08/18 Time Patient Seen: 13:55 Interval history: FOLLOW UP ON COMMUNITY ACQUIRED PNA Patient seen at bedside. His saturations are starting to improve, currently on 2L saturating 96%. He is starting to feel better too, with breathing improving. Exam Vital Signs (past 8 hours): - 05/08/18 07:30 05/08/18 09:25 05/08/18 10:05 Temperature 97.8 F Pulse Rate 83 Respiratory Rate 18 Blood Pressure 147/72 H Pulse Oximetry 94 96 92 05/08/18 11:43 Temperature 98.1 F Pulse Rate 92 H Respiratory Rate 18 Blood Pressure 135/68 Pulse Oximetry 93 Fraction of Inspired Oxygen 32 Oxygen Delivery Method Nasal Cannula Oxygen Flow Rate 2 Narrative Exam Narrative: General: NAD, AAOx3 HEENT: PERRLA BL, EOMI BL Neck: Supple, no LAD or JVD CV: RRR, no murmurs or gallops Resp: Rhonchorous coarse breath sounds in all lung baltazar, similar as before. No wheezes appreciated. GI: +BS, soft, nontender MSK: Moves all extremities Skin: no lesions or bruising Neuro: NFD Psych: Appropriate mood, able to make his own decisions Objective Labs Result Diagrams: 05/08/18 05:32 05/08/18 05:32 Labs: Laboratory Results - last 24 hr 05/08/18 05/08/18 05:32 05:32 WBC 20.6 H RBC 3.23 L Hgb 10.2 L Hct 30.7 L MCV 95.1 MCH 31.6 MCHC 33.2 RDW 14.8 Plt Count 375 Neut % (Auto) 82.9 H Lymph % (Auto) 4.2 L [place] % (Auto) 11.2 Eos % (Auto) 1.6 L Baso % (Auto) 0.1 Neut # (Auto) 28548 H Sodium 142 Potassium 4.6 Chloride 108 H Carbon Dioxide 23 BUN 28 H Creatinine 1.20 Estimated GFR 58.3 L BUN/Creatinine Ratio 23.3 H Glucose 110 Calcium 8.7 Assessment & Plan Plan: Assessment/Plan Narrative: 1. Acute hypoxic respiratory failure - Likely due to pneumonia - Continue O2 and Nebs. Titrate as tolerated 2. Community-acquired pneumonia -patient continues to be afebrile, leukocytosis improving, now down to 20.6 -patient is hemodynamically stable -CT chest scan revealed bilateral infiltrates, left worse than right, consistent with pneumonia (however interval follow-up is recommended to rule out tumors) -ABG on admission showed 7.49//, and patient was placed on oxygen therapy, still needs 2L O2 -blood cultures prelim negative. Sputum cultures not done as patient is not able to induce any sputum -continue IV ceftriaxone and azithromycin at this time, continue to monitor for improvement -consider CT Chest with IV contrast if no improvement to assess loculations or questionable mets -DuoNeb as per Respiratory therapy 3. Chronic systolic CHF -not in acute exacerbation -BNP 89, clinically euvolemic -continue losartan, atorvastatin, metoprolol 4. Diabetes type 2 - BG improved - continue insulin NPH and NovoLog sliding scale - frequent Accu-Cheks, hypoglycemia protocol 5. SRINIVAS on Chronic kidney disease - Resolved, likely due to dehydration - BUN 68, Cr 1.6->1.3->1.2 - Will now stop IVF as patient is hydrated 6. Coronary artery disease - s/p CABG in the past - continue metoprolol, Plavix, atorvastatin, losartan 7. Hyperlipidemia -continue atorvastatin 8. Hypertension -patient is currently blood pressure controlled -continue metoprolol and losartan 9. UTI - Urine cultures grew E Coli - Continue Ceftriaxone IV at this time until sensitivities are back DNR/DNI 20 min spent evaluating and providing care for this patient Quality VTE Deep Vein Thrombosis/Pulmonary Embolism Present on Admission: No
--- NOTE | 2018-05-08 14:56 | PC.NURSE ---
Pt. alert and oriented x 3. Calm and cooperative throughout the shift. May have slow response to questions. Anterior and posterior lung field were diminished. Pt. adhered to medication regime. Had productive cough and produced spit towards the end of the shift. Had 5/10 pain and was resolved with pain medications and cold compress. Continent of bowel and bladder. IV site patent, intact, and has no signs of infection. Will continue to monitor.
--- NOTE | 2018-05-08 16:29 | PT.IPTN ---
Current Diagnoses Pneumonia, unspecified organism (05/05/18) Physical Therapy Treatment Note M3 PT-IP Subjective Start: 05/08/18 14:45 Freq: NEEDED Status: Active Protocol: Document 05/08/18 16:27 NFW (Rec: 05/08/18 16:28 [id number]) Subjective Physical Therapy Visit Type Type Patient Refusal Notes Patient refusing treatment ths pm due to fatigue and pain.
[2018-05-08] MEDS: guaiFENesin ER 600 MG TAB PO (21:20)
[2018-05-08] MEDS: CEFTRIAXONE 2 GM/50 ML FROZ.PIGGY IV (21:20)
[2018-05-08] MEDS: ATORVASTATIN 20 MG TABLET 40 MG PO (21:20)
[2018-05-08] MEDS: AZITHROMYCIN 250 MG in DEXTROSE 5% IN WATER 250 ML IV (22:41)
[2018-05-09] VITALS (13 sets, daily range): BP systolic 138–159; BP diastolic 56–86; PULSE 82–94; RESP 16–21; TEMP 36.4–36.8; O2SAT 91–100
[2018-05-09] MEDS: ACETAMINOPHEN 325 MG TABLET 650 MG PO (01:11)
[2018-05-09] MEDS: FLUTICASONE/SALMETEROL 250/50 14 PUFF DISKUS INH ×2 (05:28→17:03)
[2018-05-09] MEDS: ALBUTEROL 2.5 MG/3 ML NEB (ADULT) INH ×3 (05:28→17:03)
[2018-05-09 06:11] LABS: Add Manual Diff / Slide Review NO; Basophils Percent Auto 0.2 % (0-2); Eosinophils Percent Auto 1.7 % (2-4); Hemoglobin 10.8 g/dL (13.5-17.5); Lymphocytes Percent Auto 5.9 % (25-40); Mean Corpuscular HGB Conc 32.9 % (30-36); Mean Corpuscular Hemoglobin 31.5 PG (26-34); Mean Corpuscular Volume 95.9 fL (80-100); Monocytes Percent Auto 9.4 % (3-14); Neutrophils Absolute Auto 16100 /uL (3000-5900); Neutrophils Percent Auto 82.8 % (50-75); Platelet Count 373 X10^3/uL (150-400); Red Blood Cell Count 3.44 X10^6/uL (4.5-5.9); Red Cell Distribution Width 15.2 % (11.6-14.8); White Blood Cell Count 19.4 X10^3/uL (4.5-11.0)
[2018-05-09 06:28] LABS: BUN Creatinine Ratio 20.9 (6-22); Blood Urea Nitrogen 23 mg/dL (9-20); Calcium 8.7 mg/dL (8.4-10.2); Carbon Dioxide 25 mmol/L (22-32); Chloride 107 mmol/L (98-107); Estimated Glomerular Filt Rate > 60.0 mL/min (>60); Glucose 122 mg/dL (80-110); HEMOLYSIS < 15 (0-50); Potassium 4.4 mmol/L (3.4-5.1); Sodium 142 mmol/L (137-145)
[2018-05-09] MEDS: LOSARTAN 50 MG TABLET PO (10:17)
[2018-05-09] MEDS: CLOPIDOGREL 75 MG TABLET PO (10:17)
[2018-05-09] MEDS: METOPROLOL ER 50 MG TABLET PO (10:17)
[2018-05-09] MEDS: OXYCODONE IR 5 MG TABLET PO ×2 (10:17→21:48)
[2018-05-09] MEDS: guaiFENesin ER 600 MG TAB PO ×2 (10:17→21:00)
[2018-05-09] MEDS: TAMSULOSIN 0.4 MG CAPSULE PO (10:17)
[2018-05-09] MEDS: ALLOPURINOL 100 MG TABLET PO (10:17)
[2018-05-09] MEDS: PANTOPRAZOLE 40 MG TABLET PO (10:17)
[2018-05-09] MEDS: MAGNESIUM HYDROXIDE 30 ML UDC PO (10:17)
[2018-05-09] MEDS: ENOXAPARIN 30 MG/0.3 ML SYRINGE SUBCUT (10:18)
[2018-05-09] MEDS: INSULIN NPH 100 UNIT/ML VIAL 25 UNIT SUBCUT (10:18)
--- NOTE | 2018-05-09 12:02 | PT.IIE ---
Addendum entered and electronically signed by Nuris Walton PT 05/09/18 15:48: This is to certify that I have reviewed this documentation and POC Original Note: Current Diagnoses Type 2 diabetes mellitus without complications (05/05/18) Hyperlipidemia, unspecified (05/05/18) Essential (primary) hypertension (05/05/18) Atherosclerotic heart disease of [place] coronary artery without angina pectoris (05/05/18) Pneumonia, unspecified organism (05/05/18) Acute respiratory failure with hypoxia (05/05/18) Chronic kidney disease, unspecified (05/05/18) Urinary tract infection, site not specified (05/05/18) Surgical History (Last Updated 05/05/18 @ 22:06 by Joseph Mae MD) H/O sinus surgery (Acute) History of brain surgery (Acute) History of cholecystectomy (Chronic) S/P CABG x 4 (Chronic) Medical History (Last Updated 05/05/18 @ 22:06 by Joseph Mae MD) Bleeding ulcer (Acute) Hypertension (Acute) Thyroid nodule (Acute) Chronic gout (Chronic) Chronic kidney disease (CKD) stage G3a/A1, moderately decreased glomerular filtration rate (GFR) between 45-59 mL/min/1.73 square meter and albuminuria creatinine ratio less than 30 mg/g (Chronic) Diabetes type 2, controlled (Chronic) Heart attack (Chronic) Hyperlipidemia (Chronic) Left bundle branch block (Chronic) 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 It helps to see people's lips. Otherwise no deficits noted. Mobility and Gait Prior to admit pt states ability to walk 400-500ft without AD. He reports ~1X/ month using spc for outdoor ambulation, primarily due to vision deficits. Prior Functional Level (Other details) All other mobilities are reported as independent. Social History Household Members spouse other Living Arrangements House Number of Floors (Floors) One Floor Number of Stairs To Enter/Railing? Front entry 2 steps no rails + driveway + 2 steps B rails. Back entry 4 steps R rails ascending. Home Environment High Toilet Walk in Shower Built-In Shower Seat Home Equipment Four Wheel Walker Straight Cane Hand Held Shower Employment Status Retired Additional Social History Comment Lives with his who could be avaliable 06/02. Also lives with 104 yr old mother who will be moving to assisted living soon. He has a son living in [place] who might be able to help occasionally; pt states his son is great with small projects/referral management liaison. Pt also owns heavy duty suction grab bar that is not currently installed. M2 PT-IP Current Condition Start: 05/08/18 14:45 Freq: NEEDED Status: Active Protocol: Document 05/09/18 12:02 (Rec: 05/09/18 13:30 [id number]) Physical Therapy Current Condition Current Condition Evaluation Date 05/09/18 Treatment Diagnosis Pneumonia; UTI; impaired mobiity; difficulty walking Onset Date 05/05/18 Precautions Other Precautions monitor 02 sat M3 PT-IP Subjective Start: 05/08/18 14:45 Freq: NEEDED Status: Active Protocol: Document 05/09/18 12:02 (Rec: 05/09/18 13:30 [id number]) Subjective Physical Therapy Visit Type Type Initial Evaluation Visit Start Time 12:02 Visit Stop Time 12:42 Total Visit Minutes 40 Number of SUPERVISOR GRAPHITE Visits 0 Physical Therapy Visit Comments Patient Comments Pt agreeable to mobilize with PT today. Patient Goals Pt plans to return home with his upon d/c. M4 PT-IP Mobility and Gait Start: 05/08/18 14:45 Freq: NEEDED Status: Active Protocol: Document 05/09/18 12:02 (Rec: 05/09/18 13:30 [id number]) PT-Bed Mobility Assessment Supine to Sit Supine to Sit Moderate Assistance 1 Person Assistance Sit to Supine Sit to Supine Standby Assistance Scooting Scooting to Edge of Bed Standby Assistance PT-Transfer Assessment Sit to and From Stand Sit to and from Stand Standby Assistance Equipment Transfer Assistive Device Gait Belt Front Wheeled Walker Orthotic/Prosthetic Devices or Brace: No Transfers Transfer Destination Bed Chair Transfer Technique Stand Step Pivot Transfer Ability Level of Assist Standby Assistance Use of Upper Extremities Comments Mobility Comments O2 saturation is 94% on room air. With conversation O2 drops to 88% and returns quickly to low 90's with cues for deep breathing. Resting/ seated BP =129/68, HR 91. Supine to sit is performed with significant effort x2 attempts and then completed on 3rd attempt with modA x1. Pt agrees to stand. Sit > stand using fww, UE use and SBA is performed with cues to scoot to edge of chair. March in place 10 steps is tolerated without patient complaint and BP 143/56, O2 sats remain in the low 90's. Gait Assessment Gait Gait Assistance Required: Standby Assistance Distance (Feet) 15 Able to Maintain Weight Bearing Status Yes During Gait Assistive Devices Assistive Device Gait Belt Front Wheeled Walker Orthotic/Prosthetic Devices or Brace: No Gait Deviations General Gait Pattern Decreased Stride Length Decreased Feet Clearance Factors Limiting Gait Function Factors Limiting Gait Function Decreased Activity Tolerance Decreased Strength Difficulty Following Directions Incoordination Limited Range of Motion Poor Balance Poor Safety Awareness Respiratory Distress Comments Gait Comments Pt ambulates from chair > EOB with fww and SBA and maintains a mildly forward flexed trunk. O2 drops to 88% at one point but returns/ remains in low 90's when cued for deep breathing. Pt had some trouble managing fww, bumping into wall X2; he felt this was related to his vision . BP 138/77 HR 92 when seated post ambulation. PT-Balance Assessment Sitting Balance and Reactions Static Sitting Balance Ability Good Dynamic Sitting Balance Ability Good Standing Balance and Reactions Static Standing Balance Ability Fair Dynamic Standing Balance Ability Fair Device Used fww M5 PT-IP Objective Assessments Start: 05/08/18 14:45 Freq: NEEDED Status: Active Protocol: Document 05/09/18 12:02 (Rec: 05/09/18 13:30 [id number]) Orientation Orientation/Cognition Level of Alertness Alert Orientation Name Birthday Place Situation Language Function Ability Hard of Hearing Safety Awareness Decreased Safety Awareness Comments Pt [place] and has decreased time responding, but does respond appropriately. Strength Lower Extremity Strength Assessment Within Functional Limits M6 PT-IP Treatment Start: 05/08/18 14:45 Freq: NEEDED Status: Active Protocol: Document 05/09/18 12:02 (Rec: 05/09/18 13:30 [id number]) Physical Therapy Treatment Exercises Exercises Ankle Pumps Education Education Provided Safety Other Treatments Other Treatment Performed Told to practice deep breathing. M7 PT-IP Assessment and Plan Start: 05/08/18 14:45 Freq: NEEDED Status: Active Protocol: Document 05/09/18 12:02 (Rec: 05/09/18 13:30 [id number]) PT Summary Assessment and Plan Potential Rehabilitation Potential Good Status of Condition at Evaluation Evolving Summary Impairments ROM Strength Balance Coordination Bed Mobility Transfers Gait Activity Tolerance Progress Towards Goals Slow Progress due to Medical Issues Assessment Summary Pt with pneumonia and UTI presents with impaired mobility and difficulty walking. He tolerated 15 ft ambulation with fww and SBA. His greatest difficulty today was noted as supine > sit needing modA x1 to sit EOB. O2 sats remained 88-96% during this session and pt is able to recover low sats with cues to breath. Recommendation is for SNF vs home with 24/7 assist and home health depending on level of assistance his is able to offer. Goals Bed Mobility Goal Standby Assistance Transfer Goal Independent Front Wheeled Walker Gait Goal Standby Assistance Front Wheel Walker Gait Distance 150 Other Goals 4 steps up/down with R rail ascending. Days to Meet Goals 5 Frequency of Treatment Frequency Of Treatment Once a Day Treatment Plan Physical Therapy Treatment Plan Bed Mobility Training Transfer Training Gait Training Therapeutic Exercise Balance Retraining Discharge Planning Neuromuscular Re-ed Coordination Retraining Manual Therapy Other Recommendations and Next Treatment ambulation, stair climbing, Focus bed mobility. assess 4ww or cane ambulation when appropriate. Recommendations To Nursing Amount of Assist Needed 1 Person Assist Discharge Recommendations PT Discharge Recommendations Home with 24/7 Assist Home Health SNF Rehab Other Discharge Recommendations Home with 24/7 assist and HH vs. SNF Equipment Needed for Home Before fww. Also making Discharge recommendations to install grab bars around toilet, in shower and bed rails.
--- NOTE | 2018-05-09 13:43 | P.PN_ITS ---
Subjective Date Patient Seen: 05/09/18 Interval history: Patient denies shortness of breath. However, he was found to be hypoxic upon evaluation on room air. He does report left sided chest/ rib discomfort present since prior to admission. Exam Vital Signs (past 8 hours): - 05/09/18 05:44 05/09/18 07:55 05/09/18 08:36 Temperature 97.6 F 98.2 F Pulse Rate 89 85 Respiratory Rate 21 19 Blood Pressure 159/86 H 150/63 H Pulse Oximetry 98 94 97 05/09/18 09:00 05/09/18 11:39 05/09/18 11:45 Temperature 98.1 F Pulse Rate 85 94 H Respiratory Rate 18 17 Blood Pressure 143/56 H Pulse Oximetry 95 94 94 Fraction of Inspired Oxygen 21 Oxygen Delivery Method Room Air Oxygen Flow Rate 0 Narrative Exam Narrative: Pleasant gentleman resting comfortably Lungs: Decreased breath sounds with occassional scattered rhonchi at the bases CV:RRR nl Sl S2 Abd: Soft/ non tender/ non distended Ext: no edema Objective Labs Result Diagrams: 05/09/18 05:39 05/09/18 05:39 Labs: Laboratory Results - last 24 hr 05/09/18 05/09/18 05:39 05:39 WBC 19.4 H RBC 3.44 L Hgb 10.8 L Hct 33.0 L MCV 95.9 MCH 31.5 MCHC 32.9 RDW 15.2 H Plt Count 373 Neut % (Auto) 82.8 H Lymph % (Auto) 5.9 L [place] % (Auto) 9.4 Eos % (Auto) 1.7 L Baso % (Auto) 0.2 Neut # (Auto) 62819 H Sodium 142 Potassium 4.4 Chloride 107 Carbon Dioxide 25 BUN 23 H Creatinine 1.10 Estimated GFR > 60.0 BUN/Creatinine Ratio 20.9 Glucose 122 H Calcium 8.7 Assessment & Plan (1) Acute respiratory failure with hypoxia: Problem details: Secondary to bilateral pneumonia, Back on oxygen as resting oxygenation on room air was 70%-85% Current visit: Yes Status: Acute (2) Type 2 diabetes mellitus: Problem details: Blood sugar well controlled on insulin Current visit: Yes Status: Acute (3) Chronic renal failure: Problem details: Improved since admission, Creatinine now 1.10 down from 1.6 Current visit: Yes Status: Acute (4) Hypertension: Problem details: Improved Current visit: Yes Status: Acute (5) Hyperlipidemia: Current visit: Yes Status: Acute (6) CAD (coronary artery disease): Current visit: Yes Status: Acute (7) Urinary tract infection: Problem details: Continue Antibiotics Current visit: Yes Status: Acute (8) Community acquired pneumonia: Problem details: Continue current antibiotics Qualifiers: Laterality: unspecified laterality Lung location: Qualified Code(s): J18.9 - Pneumonia, unspecified organism Current visit: Yes Status: Acute Quality VTE Deep Vein Thrombosis/Pulmonary Embolism Present on Admission: No
[2018-05-09] MEDS: ATORVASTATIN 20 MG TABLET 40 MG PO (21:00)
[2018-05-09] MEDS: CEFTRIAXONE 2 GM/50 ML FROZ.PIGGY IV (23:47)
[2018-05-09] MEDS: SODIUM CHLORIDE 0.9% 250 ML 21 ML IV (23:50)
[2018-05-10] VITALS (20 sets, daily range): BP systolic 137–151; BP diastolic 71–89; PULSE 74–97; RESP 17–24; TEMP 36.4–37; O2SAT 87–100
--- NOTE | 2018-05-10 00:07 | PC.NURSE ---
LS bilateral course rhonci throughout, pt desats into mid-80's with conversation, O2 2L=95% at rest, pt demonstrated flutter device, 10 breaths; Oxycodone 5 mg for pain to rib cage
[2018-05-10] MEDS: AZITHROMYCIN 250 MG in DEXTROSE 5% IN WATER 250 ML IV ×2 (00:39→22:18)
--- NOTE | 2018-05-10 03:50 | PC.NURSE ---
Pt is A and O x 4, VSS. Pt denies pain, has been sleeping most of this shift. HR S1, S2. LS coarse with rhonchi throughout with occasional no productive cough. Pt + BT x 2, no BM since 05/04/18 per report, despite MOM 05/09/18 morning. Pt uses urinal voiding dark yellow, qs and remains continent. HS CBG = 119.
[2018-05-10] MEDS: FLUTICASONE/SALMETEROL 250/50 14 PUFF DISKUS INH ×2 (04:14→16:48)
[2018-05-10] MEDS: ALBUTEROL 2.5 MG/3 ML NEB (ADULT) INH ×3 (04:14→16:48)
[2018-05-10] MEDS: CODEINE 30 MG TABLET PO ×3 (05:17→19:00)
[2018-05-10] MEDS: PANTOPRAZOLE 40 MG TABLET PO (05:17)
--- NOTE | 2018-05-10 05:23 | PC.NURSE ---
Patient complains of 5/10 left rib pain. Discussed options of Oxycodone vs Codeine and patient requests to try Codeine for pain; medicated as requested. Has not had BM since 05/04 so agreeable to drinking prune juice this morning. MOM given yesterday morning without results.
[2018-05-10] MEDS: SODIUM CHLORIDE 0.9% FLUSH 10 ML IV ×2 (07:45→20:38)
[2018-05-10] MEDS: ALLOPURINOL 100 MG TABLET PO (09:57)
[2018-05-10] MEDS: CLOPIDOGREL 75 MG TABLET PO (09:59)
[2018-05-10] MEDS: guaiFENesin ER 600 MG TAB PO ×2 (10:01→20:36)
[2018-05-10] MEDS: LOSARTAN 50 MG TABLET PO (10:02)
[2018-05-10] MEDS: METOPROLOL ER 50 MG TABLET PO (10:11)
[2018-05-10] MEDS: TAMSULOSIN 0.4 MG CAPSULE PO (10:12)
[2018-05-10] MEDS: ENOXAPARIN 30 MG/0.3 ML SYRINGE SUBCUT (10:14)
[2018-05-10] MEDS: INSULIN NPH 100 UNIT/ML VIAL 25 UNIT SUBCUT ×2 (10:20→17:35)
--- NOTE | 2018-05-10 12:06 | PC.NURSE ---
Day Shift-Pt A&OX4, able to make needs known using call light. Rates 3/10 aching to left chest/flank, lower rib area upon rest. 5/10 with coughing. Pt using pillow for splinting to that left side. Pt states prn Codeine effective. Last given at 1200. Pt OOB to chair with 1PA using walker to recliner chair. Pt encouraged to use and demonstrated use of acapella breathing tool, AE coarse to bases bilaterally with insp/exp rhonchi. O2 weaned from 1L NC to RA, now 93% on RA resting in chair with spot check.
[2018-05-10] MEDS: INSULIN ASPART 100 UNIT/ML INSULN PEN SUBCUT ×2 (12:36→17:31)
--- NOTE | 2018-05-10 12:38 | PC.NURSE ---
Gave novolog insulin with Rach Ames RN witnessing.
--- NOTE | 2018-05-10 14:30 | PT.IPTN ---
Current Diagnoses Type 2 diabetes mellitus without complications (05/05/18) Hyperlipidemia, unspecified (05/05/18) Essential (primary) hypertension (05/05/18) Atherosclerotic heart disease of [place] coronary artery without angina pectoris (05/05/18) Pneumonia, unspecified organism (05/05/18) Acute respiratory failure with hypoxia (05/05/18) Chronic kidney disease, unspecified (05/05/18) Urinary tract infection, site not specified (05/05/18) Physical Therapy Treatment Note M2 PT-IP Current Condition Start: 05/08/18 14:45 Freq: NEEDED Status: Active Protocol: Document 05/09/18 12:02 (Rec: 05/09/18 13:30 [id number]) Physical Therapy Current Condition Current Condition Evaluation Date 05/09/18 Treatment Diagnosis Pneumonia; UTI; impaired mobiity; difficulty walking Onset Date 05/05/18 Precautions Other Precautions monitor 02 sat M3 PT-IP Subjective Start: 05/08/18 14:45 Freq: NEEDED Status: Active Protocol: Document 05/10/18 14:30 GGD (Rec: 05/10/18 16:06 GGD [id number]) Subjective Physical Therapy Visit Type Type Treatment Note Visit Start Time 14:00 Visit Stop Time 14:30 Total Visit Minutes 30 Number of BIOINFORMATICS PROGRAMMER Visits 1 Physical Therapy Visit Comments Patient Comments Pt states he is want's to go home. M4 PT-IP Mobility and Gait Start: 05/08/18 14:45 Freq: NEEDED Status: Active Protocol: Document 05/10/18 14:30 GGD (Rec: 05/10/18 16:06 GGD [id number]) PT-Bed Mobility Assessment Sit to Supine Sit to Supine Standby Assistance Scooting Scooting to Edge of Bed Standby Assistance PT-Transfer Assessment Sit to and From Stand Sit to and from Stand Standby Assistance Equipment Transfer Assistive Device Gait Belt Front Wheeled Walker Orthotic/Prosthetic Devices or Brace: No Transfers Transfer Destination Bed Toilet Transfer Ability Level of Assist Standby Assistance Use of Upper Extremities Comments Mobility Comments O2 at rest 92% with activity 87%. Gait Assessment Gait Gait Assistance Required: Standby Assistance Distance (Feet) 60 Able to Maintain Weight Bearing Status Yes During Gait Assistive Devices Assistive Device Gait Belt Front Wheeled Walker Orthotic/Prosthetic Devices or Brace: No Gait Deviations General Gait Pattern Decreased Stride Length Decreased Feet Clearance Factors Limiting Gait Function Factors Limiting Gait Function Decreased Activity Tolerance Decreased Strength Respiratory Distress Stair Climbing Assessment Evaluation Level of Assist On Stairs Contact Guard Assistance Devices Stair Climbing Assistive Devices Right Railing Technique/Endurance Stair Climbing Direction Ascend and Descend Stair Climbing Technique Step to Step Number of Steps Climbed 3 Query Text: Stair Climbing Set # Repetitions (reps) 1 Comments Stair Climbing Comments Pt 02 decrease to 89% with stair mobility. M5 PT-IP Objective Assessments Start: 05/08/18 14:45 Freq: NEEDED Status: Active Protocol: Document 05/09/18 12:02 (Rec: 05/09/18 13:30 [id number]) Orientation Orientation/Cognition Level of Alertness Alert Orientation Name Birthday Place Situation Language Function Ability Hard of Hearing Safety Awareness Decreased Safety Awareness Comments Pt [place] and has decreased time responding, but does respond appropriately. Strength Lower Extremity Strength Assessment Within Functional Limits M6 PT-IP Treatment Start: 05/08/18 14:45 Freq: NEEDED Status: Active Protocol: Document 05/09/18 12:02 (Rec: 05/09/18 13:30 [id number]) Physical Therapy Treatment Exercises Exercises Ankle Pumps Education Education Provided Safety Other Treatments Other Treatment Performed Told to practice deep breathing. M7 PT-IP Assessment and Plan Start: 05/08/18 14:45 Freq: NEEDED Status: Active Protocol: Document 05/10/18 14:30 GGD (Rec: 05/10/18 16:06 GGD [id number]) PT Summary Assessment and Plan Summary Assessment Summary Pt improving with mobility. He was safe with gait with FWW and stairs with rail. He decrease in O2 with all mobility. Frequency of Treatment Frequency Of Treatment Once a Day Treatment Plan Other Recommendations and Next Treatment ambulation, stair climbing, Focus bed mobility. assess 4ww or cane ambulation when appropriate. Recommendations To Nursing Amount of Assist Needed 1 Person Assist
--- NOTE | 2018-05-10 15:07 | ST.IPCSEOM ---
Care Team Visit Care Team Role Provider Type DANIELLE Hernandez Emergency Provider Advanced Cancer Program Consultant Specialty: Emergency Medicine Address: [address] [place] [address], [id number] Email: Joseph Mae MD Admit Provider Physician Attending Provider Primary Care Provider Specialty: Internal Medicine Address: [address] [place] [address], [id number] Email: Current Diagnoses Type 2 diabetes mellitus without complications (05/05/18) Hyperlipidemia, unspecified (05/05/18) Essential (primary) hypertension (05/05/18) Atherosclerotic heart disease of [place] coronary artery without angina pectoris (05/05/18) Pneumonia, unspecified organism (05/05/18) Acute respiratory failure with hypoxia (05/05/18) Chronic kidney disease, unspecified (05/05/18) Urinary tract infection, site not specified (05/05/18) Past Medical History (Last Updated 05/05/18 @ 22:06 by Joseph Mae MD) Bleeding ulcer (Acute Medical) required hospitalization and 3 units blood transfusion Hypertension (Acute Medical) Thyroid nodule (Acute Medical) Chronic gout (Chronic Medical) Chronic kidney disease (CKD) stage G3a/A1, moderately decreased glomerular filtration rate (GFR) between 45-59 mL/min/1.73 square meter and albuminuria creatinine ratio less than 30 mg/g (Chronic Medical) Diabetes type 2, controlled (Chronic Medical) Heart attack (Chronic Medical) Hyperlipidemia (Chronic Medical) Left bundle branch block (Chronic Medical) 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 Medical) Injection fraction 35% February 2018 Speech-Language Pathology Swallow Evaluation SOFTWARE SUPPORT TECHNICIAN Clinical Swallow Evaluation Start: 05/10/18 14:51 Freq: Status: Active Protocol: Document 05/10/18 14:52 MRM (Rec: 05/10/18 15:07 [facility] [id number]) Clinical Swallow Evaluation Session Time Visit Start Time 13:50 Visit Stop Time 14:10 Total Visit Minutes [address] Pastrana Reason for Referral Bilateral pneumonia Setting Assessment Location Acute Care Visit Type Note Type Initial Evaluation Next Note Type Next Note Type Treatment Note Patient Information Identification Type Name ID Wristband Other History Patient is an 82 year old male admitted to [facility] with bilateral pneumonia, community acquired, worse on the left, and shortness of breath, which reduced mobility . PMH: Bleeding ulcer HTN Thyroid nodule Chronic gout CKD Diabetes, type 2, controlled Heart attack Left bundle branch block Systolic heart failure secondary to CAD He required 02 support during his admission. Dr Pastrana placed an order for a swallowing evaluation to rule out aspiration due to patient's compromised respiratory condition. Subjective Observations Patient awake and alert, sitting up in chair. No complaints of pain in resting position, but reported that coughing was painful. Successful use of hugging pillow when coughing to ease contraction motion. Patient able to provide thorough background and discuss swallowing ability. Reported to SOFTWARE SUPPORT TECHNICIAN that he has had occasional trouble with eating and drinking. Most significantly with very dry textures (toasted bagles, etc) . He did notice some difficulty tolerating consecutive sips of water after his 4xbypass 2 years ago . He idenitified that this difficulty was likely related to weakness and loss of respiratory endurance. Evaluation Liquids Trialed Thin Solids Trialed Regular Administration Type Cup Consecutive Sips Straw Self-Feeding Oral Impairment WFL Oral Strategies Upright at 90 degrees Controlled Bite/Sip Size Alternate Liquids/Solids Oral Phase Comments No oral dysphagia - able to tolerate thin liquids and regular textures without difficulty. No lingual/labial weakness or asymmetry, no difficulty with mastication, no oral residue after trials. A-P propulsion timely and efficient. Pharyngeal Impairment Mildly Impaired Pharyngeal Strategies Sitting Upright (90 deg) Double Swallow Effortful Swallow Small Bites and Sips Alternate Liquids/Solids Pharyngeal Phase Comments Delayed cough observed x1 following consecutive straw sips of thin liquid (3 sips). Suspect due to reduced respiratory endurance, allowing premature opening of laryngeal vestibule prior to swallow completion, which can allow penetration or aspiration. Swallow ability significantly improved with small bites and single sips of thin liquid. No coughing or other overt s/s of aspiration observed throughout evaluation . Findings Dysphagia Type Mild pharyngeal dyspahgia secondary to reduced respiratory status Rehabilitation Potential Excellent Impressions Patient presents with mild pharyngeal dysphagia likely related to reduced respiratory status. Able to tolerate thin liquids and regular textures in small amounts, slowly, without difficulty. Observed larger intake amount to cause coughing (consecutive sips of thin liquid via straw). However, with education regarding breathing/swallowing relationship, patient was able to implement safe swallowing strategies to avoid s/s of aspiration. Due to this, no diet change recommended at this time. Continue with current diet of thin liquids and regular textures. Straws okay. Medication administered as tolerated. Continue to position upright for all intake. Encourage self-feeding with implementation of swallowing behaviors such as single sips, alternate liquids and solids, slow rate of intake, etc. SOFTWARE SUPPORT TECHNICIAN will follow up x1 to answer any outstanding questions and confirm patient' s diet tolerance. Diet Recommendations Liquids Order Thin Diet Order Regular Medication Recommendations As Tolerated Aspiration Precautions Recommended Precautions Upright at 90 Degrees Alternate Liquids/Solids Frequent Rest Periods Small Bites/Sips Effortful Swallow Additional Precautions Single sips Treatment Plan Placement Recommendations after Home Discharge Appropriate for Therapy Yes Therapy Recommendations Follow up x1 for reinforcement of strategies and to answer any remaining questions. Dysphagia Goals Patient will tolerate the safest, least restrictive diet without overt s/s of aspiration Patient will independently implement safe swallowing strategies (single sips, slow rate of intake, alternte liquids/solids, etc) throughout meals to improve diet tolerance.
--- NOTE | 2018-05-10 15:22 | PM.PN.1 ---
Subjective Date Patient Seen: 05/10/18 Interval history: Overall the patient feels significantly improved Despite this he is hypoxic with activity. He was able to ambulate with PT He passed his swallow evaluation He denies any pain Exam Vital Signs (past 8 hours): - 05/10/18 07:45 05/10/18 08:13 05/10/18 08:40 Temperature 98.0 F Pulse Rate 86 Respiratory Rate 19 Blood Pressure 150/76 H Pulse Oximetry 98 87 L 96 05/10/18 08:58 05/10/18 09:06 05/10/18 10:02 Temperature Pulse Rate 97 H Respiratory Rate Blood Pressure 148/80 H Pulse Oximetry 89 L 98 05/10/18 10:11 05/10/18 10:15 05/10/18 11:30 Temperature 98.3 F Pulse Rate 92 H 74 86 Respiratory Rate 18 17 Blood Pressure 148/80 H 137/71 Pulse Oximetry 95 90 L 05/10/18 12:00 Temperature Pulse Rate Respiratory Rate Blood Pressure Pulse Oximetry 93 Fraction of Inspired Oxygen 21 Oxygen Delivery Method Room Air Oxygen Flow Rate 0 Narrative Exam Narrative: Pleasant male in NAD Lungs: decreased breath sounds with occassional scattered rhonchi CV: RRR nl Sl S2 Abd: soft/ non tender Ext: trace edema Objective Labs Result Diagrams: 05/09/18 05:39 05/09/18 05:39 Assessment & Plan (1) Acute respiratory failure with hypoxia: Problem details: Secondary to bilateral pneumonia, Back on oxygen as resting oxygenation on room air was 70%-85% Will continue to wean. Patient may require oxygen at home Current visit: Yes Status: Acute (2) Community acquired pneumonia: Problem details: Continue current antibiotics Qualifiers: Laterality: unspecified laterality Lung location: Qualified Code(s): J18.9 - Pneumonia, unspecified organism Current visit: Yes Status: Acute (3) Type 2 diabetes mellitus: Problem details: Blood sugar well controlled on insulin Current visit: Yes Status: Acute (4) Chronic renal failure: Problem details: Improved since admission, Creatinine now 1.10 down from 1.6 Current visit: Yes Status: Acute (5) Hypertension: Problem details: Improved Current visit: Yes Status: Acute (6) Hyperlipidemia: Problem details: continue stat Current visit: Yes Status: Acute (7) CAD (coronary artery disease): Problem details: continue Plavix, statin, Current visit: Yes Status: Acute (8) Urinary tract infection: Problem details: Continue Antibiotics Current visit: Yes Status: Acute Plan: Assessment/Plan Narrative: Home tomorrow with oxygen or home when no longer requiring oxygen Quality VTE Deep Vein Thrombosis/Pulmonary Embolism Present on Admission: No
[2018-05-10] MEDS: ATORVASTATIN 20 MG TABLET 40 MG PO (20:35)
--- NOTE | 2018-05-10 21:34 | PC.NURSE ---
Pt had relatively uneventful evening. Sat in chair most of evening. RA SpO2 95%,, Lungs diminished at bases. HL intact/patent. CBG = 164 & 162; had scheduled NPH as per orders. Tele NSR per ICU staff. Call light w/in reach, bed larm on for pt safety. continue w/plan of care.
[2018-05-10] MEDS: CEFTRIAXONE 2 GM/50 ML FROZ.PIGGY IV (23:40)
[2018-05-11] VITALS (10 sets, daily range): BP systolic 125–159; BP diastolic 60–89; PULSE 75–97; RESP 16–20; TEMP 36.5–37.1; O2SAT 90–95
--- NOTE | 2018-05-11 00:02 | PC.NURSE ---
Addendum entered by Jackie Harrington R.N. 05/11/18 06:59: Declines MOM this morning. States he is not concerned that he has not had a BM stating that's my usual. Original Note: Addendum entered by Jackie Harrington R.N. 05/11/18 06:24: Patient has been on 0.5ml/min oxygen per NC for past several hours, but when RT came to give Rx this morning she noted that the oxygen had not held and at that time was not getting any oxygen and sat was 92%. RT left him off oxygen and in reviewing continuous oximetry readings he has been fluctuating 88-93%. Complains of 4/10 left rib pain; medicated with Codeine. Original Note: Patient is alert and oriented except to day of month. Breath sounds with inspiratory crackles at bases otherwise CTA. At shift change was on RA and sat was 88% so is now on 1L/min oxygen with sat of 93%. HRR. Denies nausea. BT present and passing flatus but has not had a BM since 05/04; declines MOM tonight but will accept in a.m. Is able to turn with some assistance of staff. Voiding per urinal with staff assist; has urgency but denies dysuria. Does complain of left rib pain but after repositioning states pain is only 3/10 and declines offer of pain medication; has pillow to splint when coughing. Fall risk score is high and bed alarm is activated.
[2018-05-11] MEDS: FLUTICASONE/SALMETEROL 250/50 14 PUFF DISKUS INH (05:27)
[2018-05-11] MEDS: ALBUTEROL 2.5 MG/3 ML NEB (ADULT) INH ×2 (05:27→11:11)
[2018-05-11] MEDS: CODEINE 30 MG TABLET PO ×2 (06:11→12:49)
[2018-05-11] MEDS: PANTOPRAZOLE 40 MG TABLET PO (06:12)
[2018-05-11] MEDS: MAG HYDROX/ALUM/SIMETH 30 ML UDC PO (08:42)
[2018-05-11] MEDS: INSULIN NPH 100 UNIT/ML VIAL 25 UNIT SUBCUT (08:46)
[2018-05-11] MEDS: CLOPIDOGREL 75 MG TABLET PO (08:47)
[2018-05-11] MEDS: guaiFENesin ER 600 MG TAB PO (08:47)
[2018-05-11] MEDS: LOSARTAN 50 MG TABLET PO (08:47)
[2018-05-11] MEDS: METOPROLOL ER 50 MG TABLET PO (08:47)
[2018-05-11] MEDS: ALLOPURINOL 100 MG TABLET PO (08:47)
[2018-05-11] MEDS: ENOXAPARIN 30 MG/0.3 ML SYRINGE SUBCUT (08:48)
[2018-05-11] MEDS: TAMSULOSIN 0.4 MG CAPSULE PO (08:48)
[2018-05-11] MEDS: SODIUM CHLORIDE 0.9% FLUSH 10 ML IV (08:48)
--- NOTE | 2018-05-11 10:36 | RT ---
Home O2 eval. No history of using home O2. O2 sats at rest, room air: 88% O2 sats at rest, 2 lpm nasal cannula: 94% O2 sats while ambulating, 2 lpm nasal cannula: 91% Rec: home O2 2 lpm continously.
--- NOTE | 2018-05-11 10:39 | ST.IPDYTX ---
ROAD MECHANIC Dysphagia Treatment ROAD MECHANIC Dysphagia Treatment Start: 05/11/18 10:33 Freq: Status: Active Protocol: Document 05/11/18 10:33 TLC (Rec: 05/11/18 10:39 TLC [id number]) Dysphagia Treatment Session Time Total Visit Minutes 20 Visit Information Visit Number 2 Setting Assessment Location Acute Care Visit Type Note Type Treatment Note Patient Information Identification Type Name Subjective Observations Patient seen sitting upright in chair in room with present. Patient now on O2 after failing the ambulation test per nursing. Treatment Treatment Activities Patient declined PO intake stating he was not hungry. He did however, request ice chips to chew on. He reports chewing on ice chips ~2 years ago after his heart surgery. He was able to recall safe swallow strategies including slow rate and small bites. He reports he does not have difficulty with swallowing if he implements these strategies . Assessment Patient Response to Treatment Good Assessment of Improvement Excellent recall of recommended strategies from yesterday. Diet Recommendations Recommendations Continue Current Diet Liquids Order Thin Diet Order Regular Medication Recommendations As Tolerated Additional Dietary Needs Single Sips Controlled Sips Treatment Plan Therapy Recommendations Continue to follow patient to assess ability to self-monitor and implement strategies during a meal if able to do so prior to d/c. Dysphagia Goals Patient will tolerate the safest, least restrictive diet without overt s/s of aspiration Patient will independently implement safe swallowing strategies (single sips, slow rate of intake, alternate liquids/solids, etc) throughout meals to improve diet tolerance.
[2018-05-11] MEDS: SENNOSIDES 8.6 MG TABLET PO (10:42)
--- NOTE | 2018-05-11 11:08 | P.DS_ITS ---
History of Present Illness Date Patient Seen: 05/11/18 Time Patient Seen: 11:00 Chief complaint: CAN'T EAT,HEADACHE,COUGH,HARD TO BREATHE Narrative: He says he is feeling better and wants to go home. PT/OT agree that he is now independent enough to go home. He continues to be hypoxic, especially with ambulation. He has had no BM for 7 days. He entertains me with stories of his [employer] design . He will be following up with Dr. Mae. He will be going home to [facility] with his . He is hypoxic at rest with a room air sat of 88%. On 2 LPM NC at rest his 02 sat improved to 94%. With exertion on 2 LPM his 02 sat was 91%. I am ordering home 02 at 2 LPM continuously to help treat his resolving pneumonia and CHF. Discharge Providers Date of admission: 05/05/18 20:16 Primary care physician: Joseph Mae MD Consults: 05/05/18 21:42 Consult to Respiratory Therapy Evaluate & Treat Comment: oxygen to keep sat > 92 % Physician Instructions: Evaluate and treat 05/08/18 14:38 Consult to Physical Therapy Evaluate & Treat Comment: Physician Instructions: Evaluate and Treat 05/10/18 09:44 Consult to Speech Therapy Evaluate & Treat Comment: Physician Instructions: Evaluate and treat Discharge provider: Chela Gomes MD Discharge Date: 05/11/18 Summary Discharge Diagnosis: (1) Acute respiratory failure with hypoxia: (2) Community acquired pneumonia: (3) Type 2 diabetes mellitus: (4) Chronic renal failure: (5) Hypertension: (6) Hyperlipidemia: (7) CAD (coronary artery disease)/CHF 8 Hypoxia: Hospital Course: From the history and physical: 82-year-old male presents with increasing cough and shortness of breath malaise dyspnea. He was actually seen in the clinic on Monday of this past week I saw him there he quit complaining of increasing cough and difficulty breathing. He actually had been having cough symptoms for several months but got specifically worse over the last week or 2. When I saw him in the clinic on Monday I felt that he needed a CT scan of the lungs and orders a CT high- resolution. He did not get that done for uncertain reasons the chart notes say that he was too busy during the week to get it done but anyway he had worsening of symptoms and was seen again in the clinic by the physician assistant engineer have her on Monday. X-ray of the chest was done which showed what looks like to be pneumonia and he was told to come to the hospital ER for evaluation. He came in today for evaluation in the ER a CT scan was done which showed infiltrates bilateral worse on the left. He denies any fevers but does complain of these increasing symptoms over the past couple of weeks and now to the point where he can hardly walk because of shortness of breath. 1) Acute respiratory failure with hypoxia: Secondary to bilateral pneumonia, Back on oxygen as resting oxygenation on room air was 70%-85% Will need oxygen at home - see above testing data. (2) Community acquired pneumonia: Continue on Oral Ceftin Laterality: unspecified laterality Lung location: Qualified Code(s): J18.9 - Pneumonia, unspecified organism (3) Type 2 diabetes mellitus: Blood sugar well controlled on insulin (4) Chronic renal failure: Improved since admission, Creatinine now 1.10 down from 1.6 (5) Hypertension: Improved on Losartan and Metoprolol (6) Hyperlipidemia: continue statin - Atorvastatin (7) CAD (coronary artery disease): continue Plavix, statin, metoprolol (8) Urinary tract infection: Continue Antibiotics - Ceftin for Ecoli - sensitive Home today with oxygen. Status at Discharge Functional status at discharge: independent ambulation Overall status at discharge: patient is progressing back to baseline Time Spent with Patient Greater than 30 minutes Exam Vital Signs (past 8 hours): - 05/11/18 03:06 05/11/18 03:11 05/11/18 03:50 Temperature 98.8 F Pulse Rate 87 Respiratory Rate 20 Blood Pressure 156/84 H Pulse Oximetry 91 92 92 05/11/18 05:31 05/11/18 06:23 05/11/18 08:00 Temperature Pulse Rate 82 97 H Respiratory Rate 16 18 Blood Pressure 159/89 H Pulse Oximetry 94 91 90 L Fraction of Inspired Oxygen 21 Oxygen Delivery Method Room Air Oxygen Flow Rate 0 Objective Labs Result Diagrams: 05/09/18 05:39 05/09/18 05:39 Discharge Plan Discharge Plan Patient Disposition: Home Health Service Transfer to: [facility] Discharge comment: Going home on 2 Liters NC oxygen continuously. Qualifying diagnosis is CHF 150.9 Discharge Med Rec/Prescriptions Prescriptions: New sennosides [senna] 8.6 mg Tablet 8.6 mg PO BID Qty: 60 RF: 0 cefuroxime axetil 500 mg tablet 500 mg PO BID 10 Days Qty: 20 RF: 0 Continue allopurinol 100 mg tablet 100 mg PO BID RF: 0 atorvastatin 40 mg tablet 40 mg PO DAILY RF: 0 clopidogrel 75 mg tablet 75 mg PO DAILY RF: 0 fluticasone 50 mcg/actuation spray,suspension 50 mcg Intranasal BID RF: 0 insulin NPH isoph U-100 human 100 unit/mL suspension 56 units subcut BID RF: 0 losartan 50 mg tablet 50 mg PO DAILY RF: 0 pantoprazole 40 mg tablet,delayed release (DR/EC) 40 mg PO DAILY RF: 0 spironolactone 25 mg tablet 25 mg PO DAILY RF: 0 tamsulosin 0.4 mg capsule 0.4 mg PO BEDTIME RF: 0 metoprolol succinate 50 mg tablet extended release 24 hr 100 mg PO BID RF: 0 metformin 500 mg tablet 500 mg PO BID RF: 0 fluticasone-salmeterol 250-50 mcg/dose blister with device 1 puff Inhalation BID RF: 0 Follow up/Referrals: Joseph Mae MD [Primary Care Provider] - 1 Week Provider Discharge Instructions Diet: Diet as Tolerated Activity: Resume normal activity Oxygen: 2 liters NC continuous Skin/Wound/Dressing Care Report to your healthcare provider any signs of infection, such as:: chills, fever, night sweats and increased pain Discharge Data Primary Care Provider: Joseph Mae Attending Provider: Joseph Mae Admit Date/Time: 05/05/18 20:16 Quality VTE Deep Vein Thrombosis/Pulmonary Embolism Present on Admission: No
--- NOTE | 2018-05-11 12:25 | PC.NURSE ---
Winston states he wants to go home today. He was evaluated by RT and per RT he now has home O2 set up. He is on 2L/nc to keep sats in 90's. He has an occasional NPC. He is experiencing some rib pain, which he states is controlled with Codeine. Winston is weak, but able to get up and move about room using walker. He states he is not concerned that he has had no BM for 7 days, yet normally at home he takes Senna BID and he has not been on it last 6 days while in-hospital. Now dose Senna given earlier, along with MOM. Dose of prune juice was refused. Discharge pending.
[2018-05-11] MEDS: INSULIN ASPART 100 UNIT/ML INSULN PEN SUBCUT (12:46)
--- NOTE | 2018-05-11 14:57 | CM.DPC ---
DC Note: DC order in place and pt eager to return home today, Dr Gomes recommends HH and F2F has been signed. Therapy team has cleared pt for return home w/spouse to assist w/ HH PT. Met w/pt and spouse this afternoon to review DCP and discuss HH referral. Pt/spouse had numerous questions about the function of HH and inevitably they decided they did not need it. Pt has an appt arranged w/ Dr Mae this week. This FUEL HOUSE ATTENDANT encouraged pt and spouse to discuss HH again w/ Dr Mae if they continued to have questions and/or changed their minds re: need. P: Home w/spouse and outpt f/u. Paty Chau FUEL HOUSE ATTENDANT
--- NOTE | 2018-05-11 15:15 | PT.IPTN ---
Current Diagnoses Type 2 diabetes mellitus without complications (05/05/18) Hyperlipidemia, unspecified (05/05/18) Essential (primary) hypertension (05/05/18) Atherosclerotic heart disease of [place] coronary artery without angina pectoris (05/05/18) Pneumonia, unspecified organism (05/05/18) Acute respiratory failure with hypoxia (05/05/18) Chronic kidney disease, unspecified (05/05/18) Urinary tract infection, site not specified (05/05/18) Physical Therapy Treatment Note M2 PT-IP Current Condition Start: 05/08/18 14:45 Freq: NEEDED Status: Discharge Protocol: Document 05/09/18 12:02 (Rec: 05/09/18 13:30 [id number]) Physical Therapy Current Condition Current Condition Evaluation Date 05/09/18 Treatment Diagnosis Pneumonia; UTI; impaired mobiity; difficulty walking Onset Date 05/05/18 Precautions Other Precautions monitor 02 sat M3 PT-IP Subjective Start: 05/08/18 14:45 Freq: NEEDED Status: Discharge Protocol: Document 05/11/18 15:15 AB (Rec: 05/12/18 08:54 AB [id number]) Subjective Physical Therapy Visit Type Type Treatment Note Visit Start Time 15:15 Visit Stop Time 15:30 Total Visit Minutes 15 Number of SALES OFFICE COORDINATOR Visits 0 Physical Therapy Visit Comments Patient Comments pt planning to go home and stated he needs a walker M4 PT-IP Mobility and Gait Start: 05/08/18 14:45 Freq: NEEDED Status: Discharge Protocol: Document 05/11/18 15:15 AB (Rec: 05/12/18 08:54 AB [id number]) Gait Assessment Gait Gait Assistance Required: Standby Assistance Distance (Feet) 50 Able to Maintain Weight Bearing Status Yes During Gait Assistive Devices Assistive Device Gait Belt 4 Wheeled Walker Factors Limiting Gait Function Factors Limiting Gait Function Decreased Activity Tolerance Comments Gait Comments Gait training with use of 4WW. pt will be going home with O2 per nurse. pt educated on use of 4WW (brake management) and completed ~ 50 ft SBA. Recommending use of 4WW instead of FWW for O2 use or tank management for energy conservation. Pt. agreed. 4WW order obtained from the doctor and dispensed to pt. M5 PT-IP Objective Assessments Start: 05/08/18 14:45 Freq: NEEDED Status: Discharge Protocol: Document 05/09/18 12:02 (Rec: 05/09/18 13:30 [id number]) Orientation Orientation/Cognition Level of Alertness Alert Orientation Name Birthday Place Situation Language Function Ability Hard of Hearing Safety Awareness Decreased Safety Awareness Comments Pt [place] and has decreased time responding, but does respond appropriately. Strength Lower Extremity Strength Assessment Within Functional Limits M6 PT-IP Treatment Start: 05/08/18 14:45 Freq: NEEDED Status: Discharge Protocol: Document 05/09/18 12:02 (Rec: 05/09/18 13:30 [id number]) Physical Therapy Treatment Exercises Exercises Ankle Pumps Education Education Provided Safety Other Treatments Other Treatment Performed Told to practice deep breathing. M7 PT-IP Assessment and Plan Start: 05/08/18 14:45 Freq: NEEDED Status: Discharge Protocol: Document 05/10/18 14:30 GGD (Rec: 05/10/18 16:06 GGD [id number]) PT Summary Assessment and Plan Summary Assessment Summary Pt improving with mobility. He was safe with gait with FWW and stairs with rail. He decrease in O2 with all mobility. Frequency of Treatment Frequency Of Treatment Once a Day Treatment Plan Other Recommendations and Next Treatment ambulation, stair climbing, Focus bed mobility. assess 4ww or cane ambulation when appropriate. Recommendations To Nursing Amount of Assist Needed 1 Person Assist
--- NOTE | 2018-05-11 16:53 | PC.NURSE ---
DISCHARGE received pt with orders for PT eval and d/c home. per previous shift RN, pt has already viewed d/c instructions, iv removed, and pt's given prescriptions. walker given to pt via PT. pt escorted off unit at approximately 1653 via wheelchair with [employer]ORBOAT MECH[employer]IC IN[employer]ARD escort.
== END 2018-05-11 16:53 | disposition home or self-care (01) | DRG 193 ==
LOC: ED 16:08 → AC 20:19
PROVIDERS: Internal Medicine; Admitting Provider Internal Medicine; Emergency Provider Nurse Practitioner Family; PCP Internal Medicine; Visit Provider Internal Medicine
DX: J18.9 Pneumonia, unspecified organism (principal); J96.01 Acute respiratory failure with hypoxia; N17.9 Acute kidney failure, unspecified; I13.0 Hypertensive heart and chronic kidney disease with heart failure and stage 1 through stage 4 chronic kidney disease, or unspecified chronic kidney disease; I50.22 Chronic systolic (congestive) heart failure; N39.0 Urinary tract infection, site not specified; N18.3 Chronic kidney disease, stage 3 (moderate); B96.20 Unspecified Escherichia coli [E. coli] as the cause of diseases classified elsewhere; E11.22 Type 2 diabetes mellitus with diabetic chronic kidney disease; Z79.84 Long term (current) use of oral hypoglycemic drugs; I25.10 Atherosclerotic heart disease of native coronary artery without angina pectoris; Z95.1 Presence of aortocoronary bypass graft; I44.7 Left bundle-branch block, unspecified; Z66 Do not resuscitate; R05 Cough
CPT/HCPCS: 36415; 36591; 36600; 71046; 71250; 80048; 80053; 81003; 81015; 82550; 82553; 82805; 82962; 83605; 83880; 84145; 84484; 85025; 87040; 87077; 87086; 87186; 87400; 92526; 92610; 93005; 93010; 94618; 94640; 94760; 94762; 96361; 96365; 96366; 96367; 97116; 97162; 97530; 99284; 99285; J0696; J1650; J1956; J7613

== ENCOUNTER → 2018-06-01 10:37 | Outpatient (CLI) | payer MEDICARE, OTHER, SELFPAY ==
[2018-05-05 21:15] VITALS: BMI 27.0
--- NOTE | 2018-06-01 | DI.CT.S_ITS ---
PROCEDURE: CT CHEST W CON INDICATIONS: PNEUMONIA TECHNIQUE: After the administration of intravenous contrast, 5 mm thick sections acquired from the pulmonary apices to the posterior costophrenic angles. 7 mm thick coronal and sagittal MIP reformats were acquired. For radiation dose reduction, the following was used: automated exposure control, adjustment of mA and/or kV according to patient size. COMPARISON: [facility], CT, THORAX WITHOUT CONTRAST, 07/26/2017, 13:43. [facility], CR, XR CHEST 2V, 05/04/2018, 15:02. [facility], CT, CT CHEST WO CON, 05/05/2018, 18:17. FINDINGS: Image quality: Excellent. Lungs and pleura: There is a loculated pleural effusion with split pleura sign, compatible with an empyema. Left basilar infiltrate and consolidation consistent with residual pneumonia. Right basilar infiltrates have decreased but not resolved. There are groundglass nodules or nodular infiltrates in the right upper lobe and right middle lobe. No pneumothorax. Central and peripheral airways are patent and normal in caliber. There are calcified granulomas in the left lower lobe. Mediastinum: Heart size is normal. No pericardial effusion. There are calcified mediastinal or left hilar lymph nodes. Thoracic aorta and central pulmonary arteries are normal in size. Esophagus is normal in caliber. No hiatal hernia. Bones and chest wall: No suspicious bony lesions. No vertebral body compression fractures. No axillary or supraclavicular adenopathy by size criteria. Thyroid gland is unremarkable. Abdomen: Calcified granulomas in spleen. Visualized upper abdominal solid organs appear normal. Upper abdominal bowel loops are normal in caliber. IMPRESSION: 1. A loculated effusion with split pleura sign consistent with empyema. 2. Left basilar infiltrate and consolidation consistent with residual pneumonia. 3. Decreased right lower lobe pneumonia. 4. Groundglass nodules or nodular infiltrates in right upper lobe and right middle lobe. Recommend followup to resolution. 5. Remote granulomatous infection involving mediastinum, left hilum, left lower lobe and spleen. Dictated by: Marcel Gandhi M.D. on 06/01/2018 at 12:29 Approved by: Marcel Gandhi M.D. on 06/01/2018 at 12:45
[2018-06-01 11:14] LABS: BUN Creatinine Ratio 11.8 (6-22); Blood Urea Nitrogen 13 mg/dL (9-20); Estimated Glomerular Filt Rate > 60.0 mL/min (>60)
== END ==
PROVIDERS: PCP Internal Medicine; Visit Provider Internal Medicine
DX: J18.9 Pneumonia, unspecified organism (principal); R05 Cough; N18.9 Chronic kidney disease, unspecified
CPT/HCPCS: 36415; 71260; 82565; 84520; Q9967

== ENCOUNTER → 2018-11-14 15:14 | Outpatient (CLI) | payer MEDICARE, OTHER, SELFPAY ==
[2018-05-05 21:15] VITALS: BMI 27.0
--- NOTE | 2018-11-14 | DI.CT.S_ITS ---
PROCEDURE: CT HEAD/BRAIN WO CON INDICATIONS: Concussion without loss of consciousness TECHNIQUE: Noncontrast 4.5 mm thick angled axial sections acquired from the foramen magnum to the vertex, with coronal and sagittal reformats. For radiation dose reduction, the following was used: automated exposure control, adjustment of mA and/or kV according to patient size. COMPARISON: None. FINDINGS: Image quality: Excellent. CSF spaces: Basal cisterns are patent. No extra-axial fluid collections. The ventricles are symmetric in size and shape. Brain: No intracranial bleeds or masses. There is cerebral volume loss for age, with resultant ventricular and sulcal prominence. There are periventricular and deep white matter chronic small vessel ischemic changes. There is intracranial internal carotid artery atherosclerosis. Note is made of a cavum septum pellucidum. When discovered in isolation, this is considered to be a developmental variant of no clinical consequence. Skull and face: Craniotomy changes are seen posteriorly and inferiorly on the left. Calvarium and visualized facial bones appear intact, without suspicious lesions. Sinuses: There is at least moderate mucosal thickening seen within the right maxillary sinus. Minimal mucosal thickening is seen elsewhere within the paranasal sinuses. Postoperative changes are seen, bilateral antrectomy and removal of portions of the medial espinoza of the maxillary sinuses. Portions of the ethmoid air cell septations have also been removed. No abnormal fluid is seen within the mastoid air cells or within the middle ear cavities. IMPRESSION: No acute abnormality is detected. Postoperative change of the paranasal sinuses and the left posterior inferior skull base can be seen. Paranasal sinus disease is seen, which is most prominent involving the right maxillary sinus. Dictated by: Yan Marin M.D. on 11/14/2018 at 15:48 Approved by: Yan Marin M.D. on 11/14/2018 at 15:53
== END ==
PROVIDERS: PCP Internal Medicine; Visit Provider Internal Medicine
DX: S06.0X0D Concussion without loss of consciousness, subsequent encounter (principal); J32.8 Other chronic sinusitis
CPT/HCPCS: 70450

== ENCOUNTER → 2019-06-28 13:05 | Outpatient (CLI) | payer MEDICARE, OTHER, SELFPAY ==
[2018-05-05 21:15] VITALS: BMI 27.0
--- NOTE | 2019-06-28 | DI.US.S_ITS ---
PROCEDURE: US THYROID INDICATIONS: NEOPLASM OF UNCERTAIN BEHAVIOR OF THYROID GLAND TECHNIQUE: Real-time scanning was performed of the thyroid gland, with image documentation. COMPARISON: [facility], US, US THYROID, 03/15/2018, 16:43. FINDINGS: Right: Thyroid lobe measures 4.3 x 2.3 x 2.4 cm, and is homogeneous in echotexture. Left: Thyroid lobe measures 3.9 x 1.3 x 1.4 cm, and is homogenous in echotexture. Isthmus: 3 mm thick. Nodule number: 1 Location: Right mid Size: Unchanged 2.4 x 1.7 x 2.1 cm. Composition: Solid Echogenicity: Hyperechoic Shape: wider than tall. Margins: Smooth Echogenic foci: None Total points: 3 ACR TI-RADS category: Mildly suspicious Nodule number: 2 Location: Left mid Size: 0.5 x 0.6 x 0.4 cm. Composition: Spongiform Echogenicity: Hypoechoic Shape: wider than tall. Margins: Smooth Echogenic foci: None Total points: 2 ACR TI-RADS category: No suspicious IMPRESSION: Bilateral thyroid nodules as above. Recommend continued followup ultrasound as detailed below. ACR TI-RADS definitions and recommendations: TI-RADS 1 (benign): 0 points. FNA not needed. TI-RADS 2 (not suspicious): 2 points. FNA not needed. TI-RADS 3 (mildly suspicious): 3 points. * FNA if 2.5 cm or larger, follow up if 1.5 cm or larger (at 1, 3, and 5 years). TI-RADS 4 (moderately suspicious): 4-6 points. * FNA if 1.5 cm or larger, follow up if 1 cm or larger (at 1, 2, 3, and 5 years). TI-RADS 5 (highly suspicious): 7 points or more. * FNA if 1 cm or larger, follow up if 0.5 cm or larger (every year for 5 years). Dictated by: Romel Romero [facility] Interpreted: Elmer Remy MD on 06/28/2019 at 15:10 Approved by: Elmer Remy M.D. on 06/28/2019 at 16:46
== END ==
PROVIDERS: PCP Internal Medicine; Visit Provider Otolaryngology
DX: E04.2 Nontoxic multinodular goiter (principal)
CPT/HCPCS: 76536

== ENCOUNTER → 2019-07-25 14:27 | Outpatient (CLI) | payer MEDICARE, OTHER, SELFPAY ==
[2018-05-05 21:15] VITALS: BMI 27.0
--- NOTE | 2019-07-25 | DI.RAD.S_ITS ---
PROCEDURE: XR CHEST 2V INDICATIONS: ACUTE BRONCHITIS, UNSP TECHNIQUE: 2 views of the chest were acquired. COMPARISON: [facility], CR, XR CHEST 2V, 05/04/2018, 15:02. FINDINGS: Surgical changes and devices: Midline sternotomy wires noted. Mediastinal surgical clips are present. Lungs and pleura: The lungs are hypoinflated. There is prominence of the pulmonary vasculature that is similar in appearance prior exam. There are bandlike opacities of the lateral left lung base, which appears similar to prior comparison exam. No pleural effusion or pneumothorax. There is mild bilateral bronchial wall thickening. Mediastinum: Mediastinal contours are normal. Heart size is normal. Bones and chest wall: There are mild multilevel degenerative changes of the thoracic spine. IMPRESSION: 1. Pulmonary hypoinflation with bandlike opacities of the lateral left lung base likely representing atelectasis or parenchymal scarring. 2. Mild bilateral bronchial wall thickening, a nonspecific finding that can be seen in the setting of viral respiratory tract infections and obstructive lung diseases such as asthma. Dictated by: Kareem Wagner M.D. on 07/25/2019 at 17:18 Approved by: Kareem Wagner M.D. on 07/25/2019 at 17:22
== END ==
PROVIDERS: PCP Internal Medicine; Visit Provider Student in an Organized Health Care Education/Training Program
DX: J20.9 Acute bronchitis, unspecified (principal); M47.814 Spondylosis without myelopathy or radiculopathy, thoracic region
CPT/HCPCS: 71046

== ENCOUNTER → 2019-09-13 12:41 | Outpatient (CLI) | payer MEDICARE, OTHER, SELFPAY ==
[2018-05-05 21:15] VITALS: BMI 27.0
--- NOTE | 2019-09-13 | DI.RAD.S_ITS ---
PROCEDURE: XR CHEST 2V INDICATIONS: Bronchitis, not specified as acute or chronic TECHNIQUE: 2 views of the chest were acquired. COMPARISON: [facility], CR, XR CHEST 2V, 07/25/2019, 14:29. [facility], CR, XR CHEST 2V, 05/04/2018, 15:02. FINDINGS: Surgical changes and devices: Sternotomy wires.. Lungs and pleura: Lungs are abnormal, with a mild interstitial prominence and mild linear scarring at the left lung base superimposed on the left ventricular apex. Prior left pneumonia in that area has been documented in late 2018. No pleural effusions or pneumothorax. Mediastinum: Mediastinal contours are normal. Heart size is normal. Bones and chest wall: No suspicious bony abnormalities. Soft tissues appear unremarkable. IMPRESSION: Presumed prior CABG, mild chronic lung scarring and interstitial prominence especially at the left lung base in an area of prior pneumonia. No new pneumonia found. Dictated by: Abe Johnson M.D. on 09/13/2019 at 13:10 Approved by: Abe Johnson M.D. on 09/13/2019 at 13:12
== END ==
PROVIDERS: PCP Internal Medicine; Referring Provider Internal Medicine; Visit Provider Internal Medicine
DX: J40 Bronchitis, not specified as acute or chronic (principal); J98.4 Other disorders of lung
CPT/HCPCS: 71046

== ENCOUNTER → 2019-11-29 11:26 | Outpatient (CLI) | payer MEDICARE, OTHER, SELFPAY ==
[2018-05-05 21:15] VITALS: BMI 27.0
[2019-11-29 13:36] LABS: BUN Creatinine Ratio 21.8 (6-22); Blood Urea Nitrogen 27 mg/dL (9-20); Calcium 9.7 mg/dL (8.4-10.2); Carbon Dioxide 25 mmol/L (22-32); Chloride 102 mmol/L (98-107); Estimated Glomerular Filt Rate 55.8 mL/min (>60); Glucose 99 mg/dL (80-110); HEMOLYSIS 15 (0-50); Potassium 4.6 mmol/L (3.4-5.1); Sodium 139 mmol/L (137-145)
== END ==
PROVIDERS: PCP Internal Medicine; Referring Provider Internal Medicine; Visit Provider Internal Medicine
DX: E11.9 Type 2 diabetes mellitus without complications (principal)
CPT/HCPCS: 36415; 80048; 83036

== ENCOUNTER → 2019-12-18 15:39 | Outpatient (CLI) | payer MEDICARE, OTHER, SELFPAY ==
[2018-05-05 21:15] VITALS: BMI 27.0
--- NOTE | 2019-12-18 | DI.RAD.S_ITS ---
PROCEDURE: XR CHEST 2V INDICATIONS: HEART FAILURE- DOING LABS FIRST (CANT WALK WELL) TECHNIQUE: 2 views of the chest were acquired. COMPARISON: [facility], CR, XR CHEST 2V, 07/25/2019, 14:29. [facility], CR, XR CHEST 2V, 05/04/2018, 15:02. [facility], CR, XR CHEST 2V, 09/13/2019, 12:46. FINDINGS: Surgical changes and devices: Median sternotomy wires redemonstrated. Lungs and pleura: Airspace opacity seen on the lateral view likely involving the left lung base which is new from prior examination. Scarring within the mid left lung and left lung base redemonstrated.. There is mild blunting of left costophrenic angle which is chronic. No pneumothorax. Mediastinum: Mediastinal contours are normal. Heart size is mildly enlarged. Bones and chest wall: No suspicious bony abnormalities. Soft tissues appear unremarkable. IMPRESSION: 1. Airspace opacity seen on the lateral view posteriorly likely involving the left lung base suggestive of atelectasis versus aspiration or pneumonia. Correlate clinically. Dictated by: Romel Romero [facility] Interpreted: Abe Johnson MD on 12/18/2019 at 16:53 Approved by: Abe Johnson M.D. on 12/18/2019 at 17:22
[2019-12-18 17:26] LABS: Add Manual Diff / Slide Review NO; Basophils Absolute Auto 100 /uL (0-100); Basophils Percent Auto 0.5 % (0-2); Eosinophils Absolute Auto 300 /uL (0-450); Hemoglobin 11.4 g/dL (13.5-17.5); Lymphocytes Absolute Auto 1900 /uL (1100-4500); Mean Corpuscular HGB Conc 33.4 % (30-36); Mean Corpuscular Hemoglobin 32.4 PG (26-34); Mean Corpuscular Volume 96.9 fL (80-100); Monocytes Absolute Auto 700 /uL (0-900); Monocytes Percent Auto 7.5 % (3-14); Neutrophils Absolute Auto 6900 /uL (1500-7000); Platelet Count 265 X10^3/uL (150-400); Red Blood Cell Count 3.51 X10^6/uL (4.5-5.9); Red Cell Distribution Width 14.8 % (11.6-14.8); White Blood Cell Count 9.8 X10^3/uL (4.5-11.0)
[2019-12-18 17:44] LABS: BUN Creatinine Ratio 19.5 (6-22); Blood Urea Nitrogen 23 mg/dL (9-20); Calcium 9.3 mg/dL (8.4-10.2); Carbon Dioxide 26 mmol/L (22-32); Chloride 105 mmol/L (98-107); Estimated Glomerular Filt Rate 59.1 mL/min (>60); Glucose 123 mg/dL (80-110); HEMOLYSIS < 15 (0-50); Potassium 4.8 mmol/L (3.4-5.1); Sodium 139 mmol/L (137-145)
[2019-12-18 17:50] LABS: NT-proBNP (BNP-Adult 18+) 782 pg/mL (<450)
== END ==
PROVIDERS: PCP Internal Medicine; Referring Provider Internal Medicine; Visit Provider Internal Medicine
DX: I10 Essential (primary) hypertension (principal); I25.10 Atherosclerotic heart disease of native coronary artery without angina pectoris; I50.9 Heart failure, unspecified
CPT/HCPCS: 36415; 71046; 80048; 83880; 85025

== ENCOUNTER → 2020-01-14 13:18 | Outpatient (CLI) | payer MEDICARE, OTHER, SELFPAY ==
[2018-05-05 21:15] VITALS: BMI 27.0
--- NOTE | 2020-01-14 | DI.RAD.S_ITS ---
PROCEDURE: XR CHEST 2V INDICATIONS: Pneumonia, unspecified organism TECHNIQUE: 2 views of the chest were acquired. COMPARISON: [facility], CR, XR CHEST 2V, 07/25/2019, 14:29. [facility], CR, XR CHEST 2V, 05/04/2018, 15:02. [facility], CR, XR CHEST 2V, 12/18/2019, 16:12. FINDINGS: Surgical changes and devices: Median sternotomy wires are present with fractured superior most wire, unchanged. Lungs and pleura: Persistent patchy bibasilar opacities more pronounced on the left. This appears to localize to the left lower lobe on the lateral view. Persistent blunting of the left costophrenic angle suggestive of a small pleural effusion versus scarring. No pneumothorax. Mediastinum: Mediastinal contours are stable. Heart size is normal. Bones and chest wall: No suspicious bony abnormalities. Soft tissues appear unremarkable. IMPRESSION: Persistent patchy bibasilar opacities more pronounced on the left with likely left basilar scarring. No new focal consolidations. Persistent blunting of the left costophrenic angle which may represent a tiny pleural effusion versus pleural thickening/scarring. Overall, stable radiographic appearance of the chest. Recommend clinical correlation as radiographic findings may lag clinical symptoms. Dictated by: Randell Isaacs M.D. on 01/14/2020 at 17:56 Approved by: Randell Isaacs M.D. on 01/14/2020 at 18:01
== END ==
PROVIDERS: PCP Internal Medicine; Referring Provider Internal Medicine; Visit Provider Internal Medicine
DX: J18.9 Pneumonia, unspecified organism (principal); I50.9 Heart failure, unspecified
CPT/HCPCS: 71046

== ENCOUNTER → 2020-02-04 18:25 | Outpatient (CLI) | payer MEDICARE, OTHER, SELFPAY ==
[2018-05-05 21:15] VITALS: BMI 27.0
--- NOTE | 2020-02-04 | DI.RAD.S_ITS ---
PROCEDURE: XR CHEST 2V INDICATIONS: PNEUMONIA OF LEFT LOWER LOBE TECHNIQUE: 2 views of the chest were acquired. COMPARISON: [facility], CR, XR CHEST 2V, 05/04/2018, 15:02. [facility], CR, XR CHEST 2V, 12/18/2019, 16:12. [facility], CR, XR CHEST 2V, 01/14/2020, 13:11. FINDINGS: Surgical changes and devices: Median sternotomy changes. CABG clips are present. Lungs and pleura: There is horizontal scarring at the left lateral lower lung and retrocardiac opacity is seen best on the lateral view. Blunting of the left lateral costophrenic sulcus and elevation of the posterior hemidiaphragm appears chronic.. The right lung is clear. No pneumothorax. Mediastinum: Mediastinal contours are normal. Central arterial prominence. Heart size is normal. Bones and chest wall: No suspicious bony abnormalities. Soft tissues appear unremarkable. IMPRESSION: Persistent left lower lobe opacity, probably a combination of scarring, atelectasis, although underlying pneumonia may still be present. Given its persistence over at least a month, chest CT is recommended to evaluate for underlying lesion. Dictated by: Dorcas Rebolledo M.D. on 02/05/2020 at 9:18 Approved by: Dorcas Rebolledo M.D. on 02/05/2020 at 9:23
== END ==
PROVIDERS: PCP Internal Medicine; Referring Provider Internal Medicine; Visit Provider Internal Medicine
DX: J18.9 Pneumonia, unspecified organism (principal)
CPT/HCPCS: 71046

== ENCOUNTER → 2020-02-07 18:35 | Outpatient (ROUT) | payer MEDICARE, OTHER, SELFPAY ==
[2018-05-05 21:15] VITALS: BMI 27.0
[2020-02-07 19:40] LABS: BUN Creatinine Ratio 21.6 (6-22); Blood Urea Nitrogen 38 mg/dL (9-20); Calcium 9.6 mg/dL (8.4-10.2); Carbon Dioxide 27 mmol/L (22-32); Chloride 104 mmol/L (98-107); Estimated Glomerular Filt Rate 37.3 mL/min (>60); Glucose 185 mg/dL (80-110); HEMOLYSIS < 15 (0-50); Sodium 137 mmol/L (137-145)
== END ==
PROVIDERS: PCP Internal Medicine; Visit Provider Student in an Organized Health Care Education/Training Program
DX: J18.9 Pneumonia, unspecified organism (principal)
CPT/HCPCS: 80048

== ENCOUNTER → 2020-02-10 13:02 | Outpatient (ROUT) | payer MEDICARE, OTHER, SELFPAY ==
[2018-05-05 21:15] VITALS: BMI 27.0
[2020-02-10 13:14] LABS: BUN Creatinine Ratio 18.7 (6-22); Blood Urea Nitrogen 28 mg/dL (9-20); Calcium 9.4 mg/dL (8.4-10.2); Carbon Dioxide 26 mmol/L (22-32); Chloride 104 mmol/L (98-107); Estimated Glomerular Filt Rate 44.8 mL/min (>60); Glucose 186 mg/dL (80-110); HEMOLYSIS < 15 (0-50); Potassium 5.1 mmol/L (3.4-5.1); Sodium 137 mmol/L (137-145)
== END ==
PROVIDERS: PCP Internal Medicine; Visit Provider Student in an Organized Health Care Education/Training Program
DX: E78.5 Hyperlipidemia, unspecified (principal)
CPT/HCPCS: 80048

== ENCOUNTER → 2020-02-19 14:16 | Outpatient (CLI) | payer MEDICARE, OTHER, SELFPAY ==
[2018-05-05 21:15] VITALS: BMI 27.0
--- NOTE | 2020-02-19 | DI.CT.S_ITS ---
PROCEDURE: CT CHEST W CON INDICATIONS: PNEUMONIA F/U TECHNIQUE: After the administration of intravenous contrast, 5 mm thick sections acquired from the pulmonary apices to the posterior costophrenic angles. 1 mm axial lung, 5 mm thick coronal and sagittal reformats and 7 mm axial MIP were acquired. For radiation dose reduction, the following was used: automated exposure control, adjustment of mA and/or kV according to patient size. COMPARISON: [facility], CR, XR CHEST 2V, 07/25/2019, 14:29. [facility], CR, XR CHEST 2V, 02/04/2020, 18:23. [facility], US, BIOPSY LOCALIZATION/ASPIRATION, 08/25/2017, 15:20. [facility], CT, CT CHEST W CON, 06/01/2018, 11:20. FINDINGS: Image quality: Excellent. Lungs and pleura: There is resolving pneumonia seen within the left lower lobe posteriorly and within the lateral aspect of the left midlung.. No pleural effusions or pneumothorax. Central and peripheral airways are patent and normal in caliber. Mediastinum: Heart size is normal. No pericardial effusion. No mediastinal or hilar adenopathy by size criteria. Thoracic aorta and central pulmonary arteries are normal in size. Esophagus is normal in caliber. No hiatal hernia. Postoperative changes suggestive of prior CABG. Bones and chest wall: No suspicious bony lesions. No vertebral body compression fractures. No axillary or supraclavicular adenopathy by size criteria. Thyroid gland appears asymmetric, slightly larger on the right than the left, with a central hypodensity (series 2, image 7) possibly representing a thyroid nodule. Abdomen: Visualized upper abdominal solid organs appear normal. Upper abdominal bowel loops are normal in caliber. IMPRESSION: Resolving left lung pneumonia, no central mass lesion seen or adenopathy. Incidental note is made of asymmetric enlargement of the right thyroid lobe when compared to the left with a central subtle hypodensity potentially a manifestation of thyroid nodule and depending on the clinical status follow-up by thyroid ultrasound may be warranted. Dictated by: Abe Johnson M.D. on 02/19/2020 at 15:28 Approved by: Abe Johnson M.D. on 02/19/2020 at 15:43
== END ==
PROVIDERS: PCP Internal Medicine; Referring Provider Student in an Organized Health Care Education/Training Program; Visit Provider Student in an Organized Health Care Education/Training Program
DX: J18.9 Pneumonia, unspecified organism (principal); E04.9 Nontoxic goiter, unspecified
CPT/HCPCS: 71260; Q9967

== ENCOUNTER 2020-03-30 20:26 | Inpatient (IN) | payer MEDICARE, OTHER, SELFPAY ==
[2018-05-05 21:15] VITALS: BMI 27.0
[2020-03-30] VITALS (13 sets, daily range): BP systolic 154–194; BP diastolic 73–88; PULSE 64–80; RESP 9–35; TEMP 36.3–36.6; O2SAT 95–99; BMI 27.1; BMI 27.9
--- NOTE | 2020-03-30 20:28 | DI.CT.S_ITS ---
PROCEDURE: CT HEAD/BRAIN WO CON INDICATIONS: AMS TECHNIQUE: Noncontrast 4.5 mm thick angled axial sections acquired from the foramen magnum to the vertex, with coronal and sagittal reformats. For radiation dose reduction, the following was used: automated exposure control, adjustment of mA and/or kV according to patient size. COMPARISON: [facility], CT, CT HEAD/BRAIN WO CON, 11/14/2018, 15:22. FINDINGS: Image quality: Excellent. CSF spaces: Basal cisterns are patent. No extra-axial fluid collections. The ventricles are symmetric in size and shape. Brain: No intracranial bleeds or masses. There is moderate cerebral volume loss for age, with resultant ventricular and sulcal prominence. There are moderate periventricular and deep white matter chronic small vessel ischemic changes. There is intracranial internal carotid artery atherosclerosis. Skull and face: Calvarium and visualized facial bones appear intact, without suspicious lesions. Stable postsurgical changes from previous paranasal surgery as well as the posterior, inferior skull base. Sinuses: There is mucosal thickening of the bilateral maxillary sinus and scattered ethmoid sinuses, most pronounced in the right maxillary sinus. Remainder of the paranasal sinuses appear clear. Mastoid air cells are well-aerated. IMPRESSION: 1. Stable CT evaluation of the head without acute intracranial abnormalities. 2. Stable appearance of age related senescent changes and sequela of chronic small vessel ischemic disease. 3. Paranasal sinus disease. Dictated by: Randell Isaacs M.D. on 03/30/2020 at 21:40 Approved by: Randell Isaacs M.D. on 03/30/2020 at 21:43
[2020-03-30 20:52] LABS: Add Manual Diff / Slide Review NO; Basophils Absolute Auto 0 /uL (0-100); Basophils Percent Auto 0.5 % (0-2); Eosinophils Absolute Auto 100 /uL (0-450); Eosinophils Percent Auto 1.4 % (2-4); Hematocrit 35.4 % (41-53); Hemoglobin 11.7 g/dL (13.5-17.5); Lymphocytes Absolute Auto 1700 /uL (1100-4500); Lymphocytes Percent Auto 23.7 % (25-40); Mean Corpuscular Hemoglobin 32.3 PG (26-34); Mean Corpuscular Volume 97.9 fL (80-100); Monocytes Absolute Auto 500 /uL (0-900); Monocytes Percent Auto 6.7 % (3-14); Neutrophils Absolute Auto 4700 /uL (1500-7000); Neutrophils Percent Auto 67.7 % (50-75); Platelet Count 229 X10^3/uL (150-400); Red Blood Cell Count 3.62 X10^6/uL (4.5-5.9); Red Cell Distribution Width 14.1 % (11.6-14.8)
[2020-03-30 21:08] LABS: INR 1.1 (0.9-1.3); Prothrombin Time 12.5 SECONDS (10.1-12.7)
[2020-03-30 21:10] LABS: PTT Partial Thromboplastin Tim 32 SECONDS (26.4-36.2)
[2020-03-30 21:11] LABS: Ammonia (NH3) < 9 umol/L (9-30)
[2020-03-30 21:12] LABS: Creatine Kinase 122 U/L (55-170)
[2020-03-30 21:13] LABS: Alanine Aminotransferase 16 IU/L (<50); Albumin 4.1 g/dL (3.5-5.0); Albumin Globulin Ratio 1.2 (1.0-2.8); Alkaline Phosphatase 63 U/L (38-126); Aspartate Aminotransferase 46 IU/L (17-59); BUN Creatinine Ratio 21.3 (6-22); Bilirubin Total 0.7 mg/dL (0.2-1.3); Blood Urea Nitrogen 27 mg/dL (9-20); Calcium 9.4 mg/dL (8.4-10.2); Carbon Dioxide 27 mmol/L (22-32); Chloride 103 mmol/L (98-107); Estimated Glomerular Filt Rate 54.3 mL/min (>60); Ethanol (ETOH) < 10 mg/dL; Globulin 3.4 g/dL (1.7-4.1); Glucose 141 mg/dL (80-110); HEMOLYSIS 24 (0-50); Lipase 31 U/L (23-300); Sodium 138 mmol/L (137-145); Total Protein 7.5 g/dL (6.3-8.2)
[2020-03-30 21:14] LABS: Potassium 6.2 mmol/L (3.4-5.1)
[2020-03-30 21:16] LABS: Lactate (Lactic Acid) 1.7 mmol/L (0.7-2.1)
[2020-03-30 21:24] LABS: Troponin I 0.012 ng/mL (0.01-0.034)
[2020-03-30 21:25] LABS: Procalcitonin < 0.05 ng/mL (<0.5)
[2020-03-30] MEDS: SODIUM CHLORIDE 0.9% 1,000 ML 125 ML IV (21:26)
[2020-03-30 21:27] LABS: CKMB % Relative Index 2.5 % (1.5-5.0)
--- NOTE | 2020-03-30 21:29 | ED_ITS ---
HPI - General Adult General Chief complaint: Altered Mental Status Stated complaint: Altered mental status Time Seen by Provider: 03/30/20 20:27 Source: patient, family () and EMS Mode of arrival: EMS Limitations: altered mental status History of Present Illness HPI narrative: Patient is an 84-year-old male. Is able to provide only limited HPI. Most of the HPI and review of systems is come from his who is at bedside. His states that last evening she thought that the patient was at his baseline. She states that this morning he slept longer than what he normally does. She states that she heard him get up several times throughout the morning to go to the restroom. When she went to check on him she noticed that he was somewhat confused. She asked if he had taken his medications in he expressed confusion about whether not he had taking his medications or not. She states that normally he is able to manage his own medication regiment. She did find out at some point during the day that the patient fell a couple days ago. Apparently he hit the left side of his face. There was no loss of consciousness. He is not on blood thinners. She states that she thought she heard him fell a couple days ago but apparently the patient did get up on his own and never mentioned anything about it to his . She states that as the day went on he had several more episodes of loose stools. She states that he continued to be confused throughout the day. At some point this afternoon/evening she thought that he ought to be evaluated so she contacted EMS who brought him to the emergency department. Patient reports no symptoms. He denies any pain. Last episode of diarrhea was several hours ago. He is somewhat confused about his location and why he is here. He cannot provide any information regarding his medication usage today. Patient's states that a similar event happened 30 years ago. She stated was secondary to the fact that he was on ?too many medications ? Related Data Home Medications Medication Instructions Recorded Confirmed allopurinol 100 mg PO BID 05/06/18 03/31/20 atorvastatin 40 mg PO DAILY 05/06/18 03/31/20 clopidogrel 75 mg PO DAILY 05/06/18 03/31/20 fluticasone propionate 50 mcg INTRANASAL BID 05/06/18 03/31/20 insulin NPH isoph U-100 human 56 units SUBCUT BID 05/06/18 05/06/18 losartan 100 mg PO DAILY 05/06/18 03/31/20 metoprolol succinate 100 mg PO BID 05/06/18 05/08/18 pantoprazole 40 mg PO DAILY 05/06/18 03/31/20 spironolactone 25 mg PO DAILY 05/06/18 03/31/20 tamsulosin 0.4 mg PO BEDTIME 05/06/18 03/31/20 fluticasone propion-salmeterol 1 puff INHALATION BID 05/07/18 05/07/18 metformin 500 mg PO BID 05/07/18 05/07/18 acetaminophen-codeine 1 tab PO PRN PRN 03/31/20 03/31/20 gabapentin 600 mg PO TID 03/31/20 03/31/20 Previous Rx's Medication Instructions Recorded sennosides [senna] 8.6 mg PO BID #60 tab 05/11/18 Allergies Allergy/AdvReac Type Severity Reaction Status Date / Time tolmetin Allergy Severe Anaphylaxis Verified 05/05/18 21:29 Review of Systems Constitutional Constitutional: Denies fatigue, Denies fever(s) and Denies headache(s) Eyes Eyes: Denies change in vision ENT Ears, Nose, Mouth, and Throat: Denies headache(s) Cardiovascular Cardiovascular: Denies chest pain and Denies dyspnea Respiratory Respiratory: Denies dyspnea Gastrointestinal Gastrointestinal: Denies abdominal pain Genitourinary Genitourinary: Denies dysuria and Denies urinary incontinence Genitourinary: Denies dysuria and Denies urinary incontinence Musculoskeletal Musculoskeletal: Denies arthralgias and Denies myalgias Integumentary/Breasts Skin/Breast: Denies rash Neurologic Neurologic: Reports confusion and Denies headache(s) Psychiatric Psychiatric: Reports confusion Endocrine Endocrine: Denies fatigue Hematologic/Lymphatic Comments: Not on anticoagulation Allergic/Immunologic Allergic/Immunologic: Denies urticaria 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) Thyroid nodule (Acute) Surgical History H/O sinus surgery (Acute) History of brain surgery (Acute) History of cholecystectomy (Chronic) S/P CABG x 4 (Chronic) Social History household members: spouse and other Smoking Status: Never smoker alcohol intake: never Smoking Status: Never smoker Substance Use Type: does not use Exam Initial Vital Signs Initial Vital Signs: Vital Signs Temperature 97.8 F 03/30/20 20:41 Pulse Rate 68 03/30/20 20:41 Respiratory Rate 12 03/30/20 20:41 Blood Pressure 176/83 H 03/30/20 20:41 Pulse Oximetry 98 03/30/20 20:41 Const General: cooperative and healthy appearing Limitations: altered mental status HENMT Head: normal to inspection and normocephalic Ears: hearing grossly normal bilaterally Nose: external nose normal Face and sinus: normal facial exam Mouth: oral mucosae normal Teeth and gingiva: dentition normal Eyes Pupils: PERRL EOM: EOM intact bilaterally Chest Chest: No crepitus and No tenderness Resp Effort & Inspection: normal respiratory effort Auscultation: clear to auscultation bilaterally Cardio Rate: regular rate Rhythm: regular rhythm GI Inspection: non-distended Palpation: soft Skin Lesions: no lesions Rashes: no rashes Neuro General: patient alert, patient awake and moves all extremities Motor: muscle tone normal throughout Sensory Exam: no sensory deficits noted Extrem General: normal to inspection and capillary refill normal Psych Appearance: grossly normal and well kempt Scores GCS [place] coma scale eye opening: Spontaneous Reinaldo coma scale verbal response: Confused [place] coma scale motor response: Obey commands Reinaldo coma scale total score: 14 Course Orders Ordered: ED Orders 03/30/20 20:28 CT head/brain wo con Stat EKG-12 Lead Stat 03/30/20 20:35 Complete Blood Count AUTO DIFF Stat Comprehensive Metabolic Panel Stat Ethanol (ETOH) Stat Lactate (Lactic Acid) Stat Lipase Stat Procalcitonin Stat Troponin & CK Cardiac Panel Stat 03/30/20 20:50 Ammonia (NH3) Stat Blood Culture Stat Partial Thromboplastin Time Stat Prothrombin Time INR Stat 03/30/20 22:41 Urinalysis and Microscopic Stat Urine Drug Screen, Rapid Stat Acetaminophen (Tylenol) 650 mg PO Q4HR PRN PRN Reason: Fever/Mild Pain (1-3) Acetaminophen/Codeine Phosphate (Tylenol #3) 1 tab PO Q6H PRN PRN Reason: Pain (Scale Score 1-3) Al Hydrox/Mg Hydrox/Simethicone (Maalox Plus) 30 ml PO Q6HR PRN PRN Reason: Dyspepsia Albuterol (Ventolin Hfa (Vent/Covid R/O)) 2 puff INH RTQ4HR PRN PRN Reason: Shortness Of Breath Atorvastatin Calcium (Lipitor) 40 mg PO BEDTIME ANDREI Bisacodyl (Dulcolax) 10 mg MD DAILY PRN PRN Reason: Constipation Calcium Carbonate (Tums) 1,000 mg PO Q4HR PRN PRN Reason: Dyspepsia Clopidogrel Bisulfate (Plavix) 75 mg PO DAILY [facility] Dextrose (D50w) 25 gm IV PRN PRN; Protocol PRN Reason: Hypoglycemia Gabapentin (Neurontin) 400 mg PO TID [facility] Heparin Sodium (Porcine) (Heparin) 5,000 unit SUBCUT BID [facility] Insulin Aspart (Novolog Flexpen) 0 unit SUBCUT ACHS [facility]; Protocol Losartan Potassium (Cozaar) 100 mg PO DAILY [facility] Magnesium Hydroxide (Milk Of Magnesia) 30 ml PO DAILY PRN PRN Reason: Constipation Magnesium Oxide (Mag Ox) 400 mg PO DAILY [facility] Last Admin: 03/31/20 02:27 Dose: 400 mg Documented by: LMILLER Metformin HCl (Glucophage) 500 mg PO BIDWM [facility] Naloxone HCl (Narcan) 0.2 mg IV Q2MIN PRN PRN Reason: Opiate Reversal Ondansetron HCl (Zofran) 4 mg IV Q8HR PRN PRN Reason: Nausea And Vomiting Pantoprazole Sodium (Protonix) 40 mg PO DAILY [facility] Tamsulosin HCl (Flomax) 0.4 mg PO BEDTIME [facility] Discontinued Medications Furosemide (Lasix) 40 mg IV NOW ONE Stop: 03/31/20 00:27 Last Admin: 03/31/20 00:41 Dose: 40 mg Documented by: LMILLER Gabapentin (Neurontin) 200 mg PO BID [facility] Sodium Chloride (Normal Saline 0.9%) 1,000 mls @ 125 mls/hr IV CONT [facility] Last Infusion: 03/30/20 23:12 Dose: 0 mls/hr Documented by: Admin: 03/30/20 21:26 Dose: 125 mls/hr Documented by: MARICRUZ Sodium Chloride (Normal Saline 0.9%) 1,000 mls @ 75 mls/hr IV CONT ANDREI Last Admin: 03/31/20 01:20 Dose: Not Given Documented by: ARELIS Losartan Potassium (Cozaar) 50 mg PO DAILY ANDREI Sodium Polystyrene Sulfonate (Kayexalate) 30 gm PO NOW ONE Stop: 03/30/20 21:59 Last Admin: 03/30/20 23:04 Dose: 30 gm Documented by: MARICRUZ Sodium Polystyrene Sulfonate (Kayexalate) 15 gm PO NOW ONE Stop: 03/30/20 23:48 Last Admin: 03/31/20 01:21 Dose: Not Given Documented by: ARELIS Vital Signs Vital signs: Vital Signs - 8 hr 03/30/20 20:41 03/30/20 21:19 03/30/20 21:30 Temperature 97.8 F Pulse Rate 68 68 69 Respiratory Rate 12 9 L 11 L Blood Pressure 176/83 H Pulse Oximetry 98 99 97 03/30/20 21:39 03/30/20 21:45 03/30/20 21:56 Temperature Pulse Rate 70 69 65 Respiratory Rate 11 L 15 13 Blood Pressure 179/77 H 170/73 H Pulse Oximetry 97 96 99 03/30/20 22:00 03/30/20 22:15 03/30/20 22:30 Temperature Pulse Rate 65 64 77 Respiratory Rate 15 12 30 H Blood Pressure 162/74 H Pulse Oximetry 98 96 96 03/30/20 22:31 Temperature Pulse Rate 80 Respiratory Rate 35 H Blood Pressure 194/88 H Pulse Oximetry 95 Medical Decision Making Medical Records Medical records reviewed: Yes I reviewed the patient's medical records. Lab Data Lab results reviewed: Yes I reviewed the patient's lab results. Result diagrams: 03/30/20 20:35 03/30/20 20:35 Labs: Lab Results 03/30/20 03/30/20 03/30/20 Range/Units 20:35 20:35 20:35 WBC 7.0 (4.5-11.0) X10^3/uL RBC 3.62 L (4.5-5.9) X10^6/uL Hgb 11.7 L (13.5-17.5) g/dL Hct 35.4 L (41-53) % MCV 97.9 (80-100) fL MCH 32.3 (26-34) PG MCHC 33.0 (30-36) % RDW 14.1 (11.6-14.8) % Plt Count 229 (150-400) X10^3/uL Neut % (Auto) 67.7 (50-75) % Lymph % (Auto) 23.7 L (25-40) % Randolph % (Auto) 6.7 (3-14) % Eos % (Auto) 1.4 L (2-4) % Baso % (Auto) 0.5 (0-2) % Neut # (Auto) 4700 (8221-5088) /uL Lymph # (Auto) 1700 (7949-5157) /uL Randolph # (Auto) 500 (0-900) /uL Eos # (Auto) 100 (0-450) /uL Baso # (Auto) 0 (0-100) /uL PT (10.1-12.7) SECONDS INR (0.9-1.3) APTT (26.4-36.2) SECONDS Sodium 138 (137-145) mmol/L Potassium 6.2 H (3.4-5.1) mmol/L Chloride 103 (98-107) mmol/L Carbon Dioxide 27 (22-32) mmol/L BUN 27 H (9-20) mg/dL Creatinine 1.27 H (0.66-1.25) mg/dL Estimated GFR 54.3 L (>60) mL/min BUN/Creatinine Ratio 21.3 (6-22) Glucose 141 H (80-110) mg/dL Lactate (0.7-2.1) mmol/L Calcium 9.4 (8.4-10.2) mg/dL Magnesium (1.6-2.3) mg/dL Total Bilirubin 0.7 (0.2-1.3) mg/dL AST 46 (17-59) IU/L ALT 16 (<50) IU/L Alkaline Phosphatase 63 (38-126) U/L Ammonia (9-30) umol/L Total Creatine Kinase (55-170) U/L CK-MB (CK-2) (<2.37) ng/mL CK-MB (CK-2) Rel Index (1.5-5.0) % Troponin I (0.01-0.034) ng/mL Total Protein 7.5 (6.3-8.2) g/dL Albumin 4.1 (3.5-5.0) g/dL Globulin 3.4 (1.7-4.1) g/dL Albumin/Globulin Ratio 1.2 (1.0-2.8) Lipase 31 (23-300) U/L Procalcitonin < 0.05 (<0.5) ng/mL Ethyl Alcohol < 10 ( - 10) mg/dL 03/30/20 03/30/20 03/30/20 Range/Units 20:35 20:35 20:35 WBC (4.5-11.0) X10^3/uL RBC (4.5-5.9) X10^6/uL Hgb (13.5-17.5) g/dL Hct (41-53) % MCV (80-100) fL MCH (26-34) PG MCHC (30-36) % RDW (11.6-14.8) % Plt Count (150-400) X10^3/uL Neut % (Auto) (50-75) % Lymph % (Auto) (25-40) % Randolph % (Auto) (3-14) % Eos % (Auto) (2-4) % Baso % (Auto) (0-2) % Neut # (Auto) (3248-9140) /uL Lymph # (Auto) (6258-2556) /uL Randolph # (Auto) (0-900) /uL Eos # (Auto) (0-450) /uL Baso # (Auto) (0-100) /uL PT (10.1-12.7) SECONDS INR (0.9-1.3) APTT (26.4-36.2) SECONDS Sodium (137-145) mmol/L Potassium (3.4-5.1) mmol/L Chloride (98-107) mmol/L Carbon Dioxide (22-32) mmol/L BUN (9-20) mg/dL Creatinine (0.66-1.25) mg/dL Estimated GFR (>60) mL/min BUN/Creatinine Ratio (6-22) Glucose (80-110) mg/dL Lactate 1.7 (0.7-2.1) mmol/L Calcium (8.4-10.2) mg/dL Magnesium 1.5 L (1.6-2.3) mg/dL Total Bilirubin (0.2-1.3) mg/dL AST (17-59) IU/L ALT (<50) IU/L Alkaline Phosphatase (38-126) U/L Ammonia (9-30) umol/L Total Creatine Kinase 122 (55-170) U/L CK-MB (CK-2) 3.00 H (<2.37) ng/mL CK-MB (CK-2) Rel Index 2.5 (1.5-5.0) % Troponin I 0.012 (0.01-0.034) ng/mL Total Protein (6.3-8.2) g/dL Albumin (3.5-5.0) g/dL Globulin (1.7-4.1) g/dL Albumin/Globulin Ratio (1.0-2.8) Lipase (23-300) U/L Procalcitonin (<0.5) ng/mL Ethyl Alcohol ( - 10) mg/dL 03/30/20 03/30/20 Range/Units 20:50 20:50 WBC (4.5-11.0) X10^3/uL RBC (4.5-5.9) X10^6/uL Hgb (13.5-17.5) g/dL Hct (41-53) % MCV (80-100) fL MCH (26-34) PG MCHC (30-36) % RDW (11.6-14.8) % Plt Count (150-400) X10^3/uL Neut % (Auto) (50-75) % Lymph % (Auto) (25-40) % Randolph % (Auto) (3-14) % Eos % (Auto) (2-4) % Baso % (Auto) (0-2) % Neut # (Auto) (3887-0785) /uL Lymph # (Auto) (6590-7617) /uL Randolph # (Auto) (0-900) /uL Eos # (Auto) (0-450) /uL Baso # (Auto) (0-100) /uL PT 12.5 (10.1-12.7) SECONDS INR 1.1 (0.9-1.3) APTT 32 (26.4-36.2) SECONDS Sodium (137-145) mmol/L Potassium (3.4-5.1) mmol/L Chloride (98-107) mmol/L Carbon Dioxide (22-32) mmol/L BUN (9-20) mg/dL Creatinine (0.66-1.25) mg/dL Estimated GFR (>60) mL/min BUN/Creatinine Ratio (6-22) Glucose (80-110) mg/dL Lactate (0.7-2.1) mmol/L Calcium (8.4-10.2) mg/dL Magnesium (1.6-2.3) mg/dL Total Bilirubin (0.2-1.3) mg/dL AST (17-59) IU/L ALT (<50) IU/L Alkaline Phosphatase (38-126) U/L Ammonia < 9 L (9-30) umol/L Total Creatine Kinase (55-170) U/L CK-MB (CK-2) (<2.37) ng/mL CK-MB (CK-2) Rel Index (1.5-5.0) % Troponin I (0.01-0.034) ng/mL Total Protein (6.3-8.2) g/dL Albumin (3.5-5.0) g/dL Globulin (1.7-4.1) g/dL Albumin/Globulin Ratio (1.0-2.8) Lipase (23-300) U/L Procalcitonin (<0.5) ng/mL Ethyl Alcohol ( - 10) mg/dL Point of Care Testing Glucose POC 114 Point of care testing: Point of Care Testing Glucose POC [address] scan - head: Radiologist's Impression: [address] [address] [address] Scan Report Signed Patient: Winston Houston LMR#: [id number] : 7Acct:[id number] Age/Sex: 84 / MDate of Service: 03/30/20 Loc: ED Accession Number: [id number] Procedure: CT head/brain wo con Ordering Provider: Chinedu Christiansen D.O. PROCEDURE: CT HEAD/BRAIN WO CON INDICATIONS: AMS TECHNIQUE: Noncontrast 4.5 mm thick angled axial sections acquired from the foramen magnum to the vertex, with coronal and sagittal reformats. For radiation dose reduction, the following was used: automated exposure control, adjustment of mA and/or kV according to patient size. COMPARISON: [facility], CT, CT HEAD/BRAIN WO CON, 11/14/2018, 15:22. FINDINGS: Image quality: Excellent. CSF spaces: Basal cisterns are patent. No extra-axial fluid collections. The ventricles are symmetric in size and shape. Brain: No intracranial bleeds or masses. There is moderate cerebral volume loss for age, with resultant ventricular and sulcal prominence. There are moderate periventricular and deep white matter chronic small vessel ischemic changes. There is intracranial internal carotid artery atherosclerosis. Skull and face: Calvarium and visualized facial bones appear intact, without suspicious lesions. Stable postsurgical changes from previous paranasal surgery as well as the posterior, inferior skull base. Sinuses: There is mucosal thickening of the bilateral maxillary sinus and scattered ethmoid sinuses, most pronounced in the right maxillary sinus. Remainder of the paranasal sinuses appear clear. Mastoid air cells are well-aerated. IMPRESSION: 1. Stable CT evaluation of the head without acute intracranial abnormalities. 2. Stable appearance of age related senescent changes and sequela of chronic small vessel ischemic disease. 3. Paranasal sinus disease. Dictated by: Randell Isaacs M.D. on 03/30/2020 at 21:40 Approved by: Randell Isaacs M.D. on 03/30/2020 at 21:43 ECG Data Attestation: I personally reviewed and interpreted this ECG as follows: Prior ECG tracings: not available for review Interpretation: Sinus rhythm Ventricular rate is 74 First degree AV block with MD interval 212 milliseconds Left bundle branch block QTC 501 milliseconds MDM Narrative Medical decision making narrative: Patient unable to provide any HPI and his review of systems was negative his he reports no issues. He is obviously confused. Does not know the year or his current location. He knows his date but cannot remember recent events. He can provide no history as to medications that he is on her what medications he took today. I am also somewhat unsure as to why if he was confused throughout the day that his waited until this evening to contact EMS to bring him into the emergency department. Patient is calm and cooperative. Is in no respiratory distress. Is hyperkalemic however has no EKG changes. His head CT is unremarkable. states he had a very similar event 30 years ago that she states was attributed to him being on too many medications. His confusion today does not have an obvious infectious source. There is no signs of trauma. His head CT is unrem arkable. Given the fact that he had similar episode 30 years ago this could potentially be a transient global amnesia his he cannot remember recent events. He does not have any focal neurologic deficits. Can move all 4 extremities. His states that he frequently complains of facial pain secondary to trigeminal neuralgia. I did discuss the case with SANDRA Fish the night hospitalist. Will admit for further evaluation and treatment. I discussed this with the patient and his who is at bedside. They both expressed understanding and agreement. Discharge Plan Departure Patient Disposition: Admitted As Inpatient Clinical Impression: Hyperkalemia Altered mental status Qualifiers: Altered mental status type: unspecified Qualified Code(s): R41.82 - Altered mental status, unspecified Discharge Date/Time: 03/30/20 23:21 Referrals: Joseph Mae MD [Primary Care Provider] - Admit Date/Time: 03/30/20 22:37 Admit Provider: Doron Fish
[2020-03-30 22:47] LABS: Appearance Urine UA CLEAR; Bilirubin Urine UA NEGATIVE (NEGATIVE); Color Urine UA YELLOW; Glucose Urine UA NEGATIVE (Negative); Ketones Urine UA TRACE (NEGATIVE); Leukocyte Esterase Urine UA NEGATIVE (NEGATIVE); Nitrite Urine UA NEGATIVE (Negative); Occult Blood Urine UA NEGATIVE (Negative); Protein Urine UA 1+ (Negative); RBC Urine None Seen (0-5/HPF); Specific Gravity Urine UA 1.015 (1.000-1.035); WBC Urine None Seen (0-5/HPF); pH Urine UA 6.5 (4.5-8.0)
[2020-03-30 22:55] LABS: UR Morphine/Opiate cutoff 300 Positive (Negative); Ur Creatinine 20 (Normal); Ur Specific Gravity 1.015 (Normal); Urine Amphetamines Negative (Negative); Urine Barbiturates Negative (Negative); Urine Benzodiazepines Negative (Negative); Urine Cocaine Negative (Negative); Urine MDMA Negative (Negative); Urine Methadone Negative (Negative); Urine Methamphetamines Negative (Negative); Urine Oxycodone Negative (Negative); Urine Phencyclidine Negative (Negative); Urine Tetrahydrocannabinol Negative (Negative); Urine Tricyclic Antidepressant Negative (Negative); Urine pH 6.5 (Normal)
[2020-03-30 23:01] LABS: Bacteria Urine Occasional (0-1); Culture Indicated Urine Cult Not Indicated; Squamous Epithelial Cell Urine 0-1 /HPF (0-5/HPF)
[2020-03-30] MEDS: SODIUM POLYSTYRENE SULFON/SORB 15 GM/60 ML CUP 30 GM PO (23:04)
[2020-03-30 23:35] LABS: COVID19 -Nasal RAPID Negative (Negative)
--- NOTE | 2020-03-30 23:48 | PM.HP.1 ---
History of Present Illness History of Present Illness Date Patient Seen: 03/30/20 Time Patient Seen: 23:48 Chief complaint: Altered mental status Narrative: Mr. Winston Houston is an 84-year-old male with a history significant for CT, systolic heart failure, hypertension, hyperlipidemia, chronic kidney disease stage 3, diabetes type 2 and trigeminal neuralgia who presents to the emergency department by EMS with altered mental status. The patient is unable to to provide medical information is as such information stained from the patient's at bedside. Patient had sustained a fall 2 days ago the patient does report that he was in a chair that slipped out from under him landing on the floor and was able to get up by himself without assistance but did strike his head but sustained no loss of consciousness neck or back pain. The patient's states that he was in his normal state health last night and then this morning he did not get up as per his usual morning routine. The patient had multiple episodes of diarrhea stools and was able to get and out of bed without difficulty. She describes him as being confused with poor recall and unable to manage his medications as usual. She acknowledge the patient has had dizziness for what sounds to be weeks but worse over the last 2 days but describes no abnormal gait or facial droop. The patient told his he was taking extra gabapentin because of his left facial pain following his fall and thought nothing of it. At the time of interview the patient denies headaches or visual changes, neck or back pain. He feels he is thinking clearly but cannot recall daytime or events. He denies complaints of chest pain or palpitations. He has had a chronic cough and per the patient's he is recovering from pneumonia. He denies shortness of breath or exertional dyspnea. He reports no abdominal pain, heartburn nausea or vomiting. He has had diarrhea today but no diarrhea stool since approximately 4:00 p.m.. He was born with a single kidney and has no difficulty with urination. The patient is typically independent in ADLs at home. Upon arrival the ER the patient is afebrile with a temperature 97.8?, heart rate of 60, blood pressure 176/83, respirations of 12 saturating 98% on room air. CT of the head is obtained which is unremarkable. On laboratory analysis he has white count of 7.0 with no shift hemoglobin of 11.7, hematocrit 35.4 platelets 229. He has a PT of 12.5, INR 1.1 and PTT of 32. He has a normal sodium but elevated potassium at 6.2. His BUN is 27 and creatinine is 1.29. His liver functions are all within normal limits and ammonia is less than 0.9. His lactic acid 1.7 total CK 122, MB of 3.0 and an index of 2.5. His troponin is negative at less than 0.012. UA reveals a specific gravity of 1.015, 1+ protein and trace ketones but no infection markers. Procalcitonin is negative at less than 0.05 and Urinary drug screen is positive for opiates. In the ER the patient received 2 L of IV fluid and Kayexalate was ordered. Patient is admitted to the medicine team for altered mental status and hyperkalemia. 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) Thyroid nodule (Acute) Surgical History H/O sinus surgery (Acute) History of brain surgery (Acute) History of cholecystectomy (Chronic) S/P CABG x 4 (Chronic) Family & Social History Social History: household members spouse,other Prior Living Arrangements House Safety & Behavioral: Feels Safe in Current Yes Environment Been Physically Hurt or No Threatened By a Person Suicidal Ideation Description None Suicide Plan Description No Plan Tobacco & Substance use: Smoking Status Never smoker alcohol intake never Substance Use Type does not use Meds Home Medications and Allergies Home Medications Medication Instructions Recorded Confirmed Type allopurinol 100 mg PO BID 05/06/18 03/31/20 History atorvastatin 40 mg PO DAILY 05/06/18 03/31/20 History clopidogrel 75 mg PO DAILY 05/06/18 03/31/20 History fluticasone propionate 50 mcg INTRANASAL BID 05/06/18 03/31/20 History insulin NPH isoph U-100 human 56 units SUBCUT BID 05/06/18 05/06/18 History losartan 100 mg PO DAILY 05/06/18 03/31/20 History metoprolol succinate 100 mg PO BID 05/06/18 05/08/18 History pantoprazole 40 mg PO DAILY 05/06/18 03/31/20 History spironolactone 25 mg PO DAILY 05/06/18 03/31/20 History tamsulosin 0.4 mg PO BEDTIME 05/06/18 03/31/20 History fluticasone propion-salmeterol 1 puff INHALATION BID 05/07/18 05/07/18 History metformin 500 mg PO BID 05/07/18 05/07/18 History sennosides [senna] 8.6 mg PO BID #60 tab 05/11/18 Rx acetaminophen-codeine 1 tab PO PRN PRN 03/31/20 03/31/20 History gabapentin 600 mg PO TID 03/31/20 03/31/20 History Allergies Allergy/AdvReac Type Severity Reaction Status Date / Time tolmetin Allergy Severe Anaphylaxis Verified 05/05/18 21:29 Review of Systems Review of Systems ROS: Yes All systems reviewed with the patient and are negative except as otherwise documented Exam Vital Signs (past 8 hours): - 03/30/20 20:41 03/30/20 21:19 03/30/20 21:30 Temperature 97.8 F Pulse Rate 68 68 69 Respiratory Rate 12 9 L 11 L Blood Pressure 176/83 H Pulse Oximetry 98 99 97 03/30/20 21:39 03/30/20 21:45 03/30/20 21:56 Temperature Pulse Rate 70 69 65 Respiratory Rate 11 L 15 13 Blood Pressure 179/77 H 170/73 H Pulse Oximetry 97 96 99 03/30/20 22:00 03/30/20 22:15 03/30/20 22:30 Temperature Pulse Rate 65 64 77 Respiratory Rate 15 12 30 H Blood Pressure 162/74 H Pulse Oximetry 98 96 96 03/30/20 22:31 03/30/20 22:45 03/30/20 23:00 Temperature Pulse Rate 80 73 72 Respiratory Rate 35 H 23 21 Blood Pressure 194/88 H 188/86 H Pulse Oximetry 95 96 Oxygen Delivery Method Room Air Narrative Exam Narrative: GENERAL APPEARANCE: well developed, well nourished, unkempt, confused, in no acute distress. HEENT: Normocephalic, pupils 2 mm OU, conjunctiva clear, EOMs intact without nystagmus, no sinus tenderness to percussion, no rhinorrhea, mucous membranes are moist and pink without lesions or exudate. NECK/THYROID: neck supple, no JVD, no carotid bruit, no thyromegaly, trachea midline. LYMPH NODES: no cervical or supraclavicular lymphadenopathy. SKIN: [place], warm and dry, no visible lesions, rashes, ulcerations or petechiae. HEART: regular rate and rhythm, S1-S2, no murmur appreciated, no rubs or gallops, brisk capillary refill, 1+ peripheral edema LUNGS: Wheezing bilaterally, diminished bases without coarseness crackles cough present. CHEST: Symmetrical movement, no accessory muscle use, good tidal volume. ABDOMEN: Soft, no distention, no abdominal tenderness, no guarding or peritoneal signs, no organomegaly, no flank or suprapubic tenderness, active bowel tones. BACK: Normal curvature, nontender to palpation EXTREMITIES: moves all extremities, strength is 5/5 and symmetrical, no deformities or joint effusions. NEUROLOGIC: AAO to person and place unable to state year or month, impaired recall, cranial nerves II-XII grossly intact, sensation intact to light touch, no clonus. PSYCH: Good eye contact, cooperative, appropriate with stable behavior Objective Labs Result Diagrams: 03/30/20 20:35 03/30/20 20:35 Labs: Laboratory Results - last 24 hr 03/30/20 03/30/20 03/30/20 20:35 20:35 20:35 WBC 7.0 RBC 3.62 L Hgb 11.7 L Hct 35.4 L MCV 97.9 MCH 32.3 MCHC 33.0 RDW 14.1 Plt Count 229 Neut % (Auto) 67.7 Lymph % (Auto) 23.7 L [place] % (Auto) 6.7 Eos % (Auto) 1.4 L Baso % (Auto) 0.5 Neut # (Auto) 4700 Lymph # (Auto) 1700 [place] # (Auto) 500 Eos # (Auto) 100 Baso # (Auto) 0 PT INR APTT Sodium 138 Potassium 6.2 H Chloride 103 Carbon Dioxide 27 BUN 27 H Creatinine 1.27 H Estimated GFR 54.3 L BUN/Creatinine Ratio 21.3 Glucose 141 H Lactate Calcium 9.4 Total Bilirubin 0.7 AST 46 ALT 16 Alkaline Phosphatase 63 Ammonia Total Creatine Kinase CK-MB (CK-2) CK-MB (CK-2) Rel Index Troponin I Total Protein 7.5 Albumin 4.1 Globulin 3.4 Albumin/Globulin Ratio 1.2 Lipase 31 Procalcitonin < 0.05 Urine Color Urine Appearance Urine pH Ur Specific [place] Urine Protein Urine Glucose (UA) Urine Ketones Urine Occult Blood Urine Nitrate Urine Bilirubin Urine Urobilinogen Ur Leukocyte Esterase Urine RBC Urine WBC Ur Squamous Epith Cells Urine Bacteria Ur Culture Indicated? U Opiates 300ng/mL cut Ur Oxycodone Screen Urine Methadone Screen Ur Barbiturates Screen U Tricyclic Antidepress Ur Phencyclidine Scrn Ur Amphetamines Screen U Methamphetamines Scrn Ur MDMA Scrn (Ecstasy) U Benzodiazepines Scrn Urine Cocaine Screen U Marijuana (THC) Screen Ethyl Alcohol < 10 COVID-19 PCR 03/30/20 03/30/20 03/30/20 20:35 20:35 20:50 WBC RBC Hgb Hct MCV MCH MCHC RDW Plt Count Neut % (Auto) Lymph % (Auto) [place] % (Auto) Eos % (Auto) Baso % (Auto) Neut # (Auto) Lymph # (Auto) [place] # (Auto) Eos # (Auto) Baso # (Auto) PT 12.5 INR 1.1 APTT 32 Sodium Potassium Chloride Carbon Dioxide BUN Creatinine Estimated GFR BUN/Creatinine Ratio Glucose Lactate 1.7 Calcium Total Bilirubin AST ALT Alkaline Phosphatase Ammonia Total Creatine Kinase 122 CK-MB (CK-2) 3.00 H CK-MB (CK-2) Rel Index 2.5 Troponin I 0.012 Total Protein Albumin Globulin Albumin/Globulin Ratio Lipase Procalcitonin Urine Color Urine Appearance Urine pH Ur Specific [place] Urine Protein Urine Glucose (UA) Urine Ketones Urine Occult Blood Urine Nitrate Urine Bilirubin Urine Urobilinogen Ur Leukocyte Esterase Urine RBC Urine WBC Ur Squamous Epith Cells Urine Bacteria Ur Culture Indicated? U Opiates 300ng/mL cut Ur Oxycodone Screen Urine Methadone Screen Ur Barbiturates Screen U Tricyclic Antidepress Ur Phencyclidine Scrn Ur Amphetamines Screen U Methamphetamines Scrn Ur MDMA Scrn (Ecstasy) U Benzodiazepines Scrn Urine Cocaine Screen U Marijuana (THC) Screen Ethyl Alcohol COVID-19 PCR 03/30/20 03/30/20 03/30/20 20:50 22:41 22:41 WBC RBC Hgb Hct MCV MCH MCHC RDW Plt Count Neut % (Auto) Lymph % (Auto) [place] % (Auto) Eos % (Auto) Baso % (Auto) Neut # (Auto) Lymph # (Auto) [place] # (Auto) Eos # (Auto) Baso # (Auto) PT INR APTT Sodium Potassium Chloride Carbon Dioxide BUN Creatinine Estimated GFR BUN/Creatinine Ratio Glucose Lactate Calcium Total Bilirubin AST ALT Alkaline Phosphatase Ammonia < 9 L Total Creatine Kinase CK-MB (CK-2) CK-MB (CK-2) Rel Index Troponin I Total Protein Albumin Globulin Albumin/Globulin Ratio Lipase Procalcitonin Urine Color Yellow Urine Appearance Clear Urine pH 6.5 Ur Specific [place] 1.015 Urine Protein 1+ H Urine Glucose (UA) Negative Urine Ketones Trace H Urine Occult Blood Negative Urine Nitrate Negative Urine Bilirubin Negative Urine Urobilinogen 1.0 Ur Leukocyte Esterase Negative Urine RBC None seen Urine WBC None seen Ur Squamous Epith Cells 0-1 /hpf Urine Bacteria Occasional (0-1) D Ur Culture Indicated? Cult not indicated U Opiates 300ng/mL cut Positive H Ur Oxycodone Screen Negative Urine Methadone Screen Negative Ur Barbiturates Screen Negative U Tricyclic Antidepress Negative Ur Phencyclidine Scrn Negative Ur Amphetamines Screen Negative U Methamphetamines Scrn Negative Ur MDMA Scrn (Ecstasy) Negative U Benzodiazepines Scrn Negative Urine Cocaine Screen Negative U Marijuana (THC) Screen Negative Ethyl Alcohol COVID-19 PCR 03/30/20 23:18 WBC RBC Hgb Hct MCV MCH MCHC RDW Plt Count Neut % (Auto) Lymph % (Auto) [place] % (Auto) Eos % (Auto) Baso % (Auto) Neut # (Auto) Lymph # (Auto) [place] # (Auto) Eos # (Auto) Baso # (Auto) PT INR APTT Sodium Potassium Chloride Carbon Dioxide BUN Creatinine Estimated GFR BUN/Creatinine Ratio Glucose Lactate Calcium Total Bilirubin AST ALT Alkaline Phosphatase Ammonia Total Creatine Kinase CK-MB (CK-2) CK-MB (CK-2) Rel Index Troponin I Total Protein Albumin Globulin Albumin/Globulin Ratio Lipase Procalcitonin Urine Color Urine Appearance Urine pH Ur Specific [place] Urine Protein Urine Glucose (UA) Urine Ketones Urine Occult Blood Urine Nitrate Urine Bilirubin Urine Urobilinogen Ur Leukocyte Esterase Urine RBC Urine WBC Ur Squamous Epith Cells Urine Bacteria Ur Culture Indicated? U Opiates 300ng/mL cut Ur Oxycodone Screen Urine Methadone Screen Ur Barbiturates Screen U Tricyclic Antidepress Ur Phencyclidine Scrn Ur Amphetamines Screen U Methamphetamines Scrn Ur MDMA Scrn (Ecstasy) U Benzodiazepines Scrn Urine Cocaine Screen U Marijuana (THC) Screen Ethyl Alcohol COVID-19 PCR Negative Assessment & Plan Assessment & Plan narrative: This is an 84-year-old male patient who presents to the ER with his reports of altered mental status following sustaining a fall 2 days ago. 1. 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 -the patient has been prescribed gabapentin for trigeminal neuralgia 600 mg 3 times daily and the patient endorses taking multiple additional doses over the last 2 days to manage pain. -the patient developed acute altered mental status today with confusion and disorientation. No evidence of infection or metabolic imbalance, no hypoglycemia or lateralizing symptoms and would account for the patient's diarrhea. Based on renal dosing for patient's current renal function he should be taking 200 to 700 mg twice daily. -will decrease gabapentin dose to avoid abrupt withdrawal, ordered gabapentin 400 mg 3 times daily, consult pharmacy pharmacist to recommended decreasing dose 400 mg every 2 days to taper to appropriate dose. -ordered neurological assessment of orientation, agitation or anxiety and myoclonus each shift. 2. Acute Hyperkalemia, present on admission, active -potassium on admission is 6.2. -12 lead EKG finds ventricular rate of 74 with a first-degree AV block with a p.r. of 212 micro seconds, left bundle branch block with a QRS of 170 milliseconds and prolonged QTC of 501 milliseconds. -patient has previously been on Lasix and it is unclear if he is taking spirolactone. Will follow-up with primary care to clarify. -renal function has improved since January, elevation of unclear etiology. -ordered Kayexalate 15 g x1 and Lasix 40 mg IV x1. -will re-evaluate chemistries with morning labs. 3. Chronic kidney disease stage 3, chronic, stable -to patient was born with a single kidney and has chronic kidney disease stage 3 with a creatinine of 1.27 an EGFR of 54.3 and a calculated creatinine clearance 57.53 which demonstrates and improvement over prior reading. -will renally dose medications -avoid renal toxic agents. 4. 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 -patient's last echocardiogram was in January of 2018 revealing 1) Mildly enlarged left ventricle with moderately reduced function (EF 35- 40%). 2) Moderate global hypokinesis with akinesis of the mid to apical septum. 3) Grossly, normal right ventricular size and function. 4) No significant valvular abnormalities. 5) No prior Echo available for comparison. -the patient denies shortness of breath but is mildly tachypneic at 20 with oxygen saturation of 95%. -ordered 40 mg of Lasix IV x1. It is unclear the patient is taking spironolactone. -requested respiratory therapy to consult, evaluate and treat. -will evaluate patient's response and consider repeat echocardiogram otherwise may follow-up on an outpatient basis. 5. Essential hypertension, chronic, stable. -dmission pressure of 176/83 improving to 154/87. -will continue patient's home regimen of losartan 100 mg daily. 6. Diabetes type 2,, uncontrolled, chronic, is stable -patient with a blood sugar of 141 on admission labs. -his most recent hemoglobin A1c on record is 11/29/2019 which was 9.0 reflective of uncontrolled diabetes. -will continue patient's home regimen of metformin 500 mg p.o. twice daily. Per the patient's home med list is no longer using insulin. -will check glucose a.c. and HS and cover with low-dose correctional insulin. -will recheck hemoglobin A1c. 7. , hyperlipidemia, chronic, stable -continue patient's home regimen of atorvastatin 40 mg daily VTE prophylaxis: SCDs, heparin IV fluid: Saline lock Diet: constant carbohydrate, Heart healthy. Code status: Full code patient designates his to be surrogate decision maker. The patient is admitted to the hospital due to the severity of his symptoms risk for complications and adverse events. The patient is admitted as observation with expected length of stay to be less than 2 midnights. Scores GCS Reinaldo coma scale eye opening: Spontaneous Reinaldo coma scale verbal response: Confused Reinaldo coma scale motor response: Obey commands Reinaldo coma scale total score: 14 Quality VTE Deep Vein Thrombosis/Pulmonary Embolism Present on Admission: No
[2020-03-31] VITALS (8 sets, daily range): BP systolic 149–163; BP diastolic 81–99; PULSE 75–103; RESP 17–18; TEMP 36.4–37.3; O2SAT 94–98
[2020-03-31 00:01] LABS: Magnesium 1.5 mg/dL (1.6-2.3)
[2020-03-31] MEDS: FUROSEMIDE 40 MG/4 ML VIAL IV (00:41)
[2020-03-31] MEDS: MAGNESIUM OXIDE 400 MG TABLET PO ×2 (02:27→08:19)
[2020-03-31 06:14] LABS: Hemoglobin A1C% w Est Avg Glu 7.8 % (4.0-6.0)
[2020-03-31 06:15] LABS: BUN Creatinine Ratio 18.5 (6-22); Blood Urea Nitrogen 24 mg/dL (9-20); Carbon Dioxide 30 mmol/L (22-32); Chloride 101 mmol/L (98-107); Estimated Glomerular Filt Rate 52.9 mL/min (>60); Glucose 169 mg/dL (80-110); HEMOLYSIS < 15 (0-50); Sodium 139 mmol/L (137-145)
[2020-03-31 06:22] LABS: Potassium 5.8 mmol/L (3.4-5.1)
[2020-03-31] MEDS: CODEINE/ACETAMINOPHEN 30/300 TABLET 1 TAB PO (07:46)
[2020-03-31] MEDS: PANTOPRAZOLE 40 MG TABLET PO (07:46)
[2020-03-31] MEDS: SODIUM CHLORIDE 0.9% FLUSH 10 ML IV (07:49)
[2020-03-31] MEDS: CLOPIDOGREL 75 MG TABLET PO (08:18)
[2020-03-31] MEDS: METFORMIN HCL 500 MG TABLET PO ×2 (08:18→17:21)
[2020-03-31] MEDS: LOSARTAN 50 MG TABLET 100 MG PO (08:20)
[2020-03-31] MEDS: HEPARIN 5,000 UNIT/ML VIAL 5000 UNIT SUBCUT ×2 (08:20→20:54)
[2020-03-31] MEDS: INSULIN ASPART 100 UNIT/ML INSULN PEN SUBCUT ×2 (08:30→12:32)
[2020-03-31] MEDS: ACETAMINOPHEN 325 MG TABLET 650 MG PO ×2 (09:19→13:24)
--- NOTE | 2020-03-31 09:46 | PC.NURSE ---
Addendum entered by Chiqui Rich R.N. 03/31/20 13:02: 1245 Pt still c/o headache 10/10 pain. noticing he is becoming increasingly restless. Patient keeps trying to get out of bed without using call light, and also keeps trying to take off tele monitor. [address] Pastrana to inform of prior message. She stated she will place an order for a pain med, and that should hopefully help him relax a bit more as well. Original Note: 0700 Received safe patient hand-off. Patient is alert and oriented to name, and place only. The patient's is currently visiting. The notes not much improvement since coming from home, reports patient is still a bit confused and not feeling well. 0730 Patient reporting splitting headache 10/10 pain. Administered tylenol/codeine per order. 0900 Patient reports no improvement in headache. Administered 1 tab of tylenol 325mg per patient request, though order called for 2 tabs. Also given ice pack. Will inform provider of headache. Patient's states he is used to taking more than 1 tab of tylenol/codeine at a time for headaches.
--- NOTE | 2020-03-31 11:23 | CM.DANOTE ---
Addendum entered by Hyacinth Escobedo LPN 03/31/20 12:25: Dr. Pastrana's progress note for today will need to be faxed to [facility] when available in order to complete the Face/Face documentation process. Original Note: Discharge Planning/Care Management DCP: assessment: case received, EMR reviewed and met pt and his [place] during Team Bedside Rounds and then again afterwards for a lengthier discussion. Introduced self and role. Pt is a 84 year old male who admitted last night to care of hospitalist team. PCP: Dr. Joselyn Mae Payer: Medicare and [employer] Admission status: in review per UR RN team Full dx and POC remain in process and Dr. Pastrana stated she would be back later today after she does a deeper review to discuss this with pt and [place]. What is clear in the discussion is that pt is on a complicated medication regimen, has one kidney and he and [place] could benefit from HH RN to assist with this. Pt does occasionally drive, one the day's when he is feeling well and can see well. These are rare. Our son does not like him to drive He will be homebound for some weeks at least [place] says, going out only to the doctor appointments. Discussed this with Dr. Pastrana. She is ordering PT now as pt is usually mobile at home but did fall and is currently still not at mental baseline per [place]. Dr. Pastrana very much agrees with HH RN need and whatever other disciplines might be helpful. Agency Choice list: discussed. Choice: [facility] Referral: given to [facility] per phone discussion and will fax clinical shortly. Face/Face document is signed by Dr. Pastrana for RN/OT/PT (for home safety evaluation and to improve functional mobility as able) P: DCP team to follow: at this time: plan is for home with and [facility] when stable for same. CM Discharge Assessment Start: 03/31/20 11:19 Freq: Status: Active Protocol: Document 03/31/20 11:19 ITV (Rec: 03/31/20 11:23 ITV [id number]) Discharge Planning Assessment Advance Directives? Yes Advance Directives on File No History Provided By Patient,Family Member,Medical Record Has Patient been admitted in last 30 No days? Prior Living Arrangements House Household Members spouse Comment drives very rarely. drives, she says, 99% of the time. Needs Assistance With Managing Medications Patient/Family Preference Home with Home Health Referrals Initiated Home Health If patient plan is home with home health Yes : Has signed face to face form been completed? Medicare Choice List Provided Yes Whiteboard Updated in Patient Room with Yes name and ext. # of Hat Forming Machine Operator Review Status In Process
[2020-03-31] MEDS: TRAMADOL 50 MG TABLET PO (13:24)
--- NOTE | 2020-03-31 14:13 | PT.IIE ---
Surgical History (Last Reviewed 03/31/20 @ 01:59 by DANIELLE Singh) H/O sinus surgery (Acute) History of brain surgery (Acute) History of cholecystectomy (Chronic) S/P CABG x 4 (Chronic) Medical History (Last Reviewed 03/31/20 @ 03:31 by Chinedu Christiansen DO) Bleeding ulcer (Acute) Chronic gout (Chronic) Chronic kidney disease (CKD) stage G3a/A1, moderately decreased glomerular filtration rate (GFR) between 45-59 mL/min/1.73 square meter and albuminuria creatinine ratio less than 30 mg/g (Chronic) Diabetes type 2, controlled (Chronic) Heart attack (Chronic) Hyperlipidemia (Chronic) Hypertension (Acute) Left bundle branch block (Chronic) 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) Thyroid nodule (Acute) Physical Therapy Inpatient Evaluation/Re-Eval M1 PT/OT-IP Prior Functional Status Start: 03/31/20 15:52 Freq: NEEDED Status: Active Protocol: Document 03/31/20 14:13 AB (Rec: 03/31/20 16:11 AB [email or web address]) Medical Review Prior Functional Status Medical History Reviewed Yes Communication able to make needs known Mobility and Gait pt with confusion; spouse in room with pt and provided pt's PLOF and home set up: stated that pt is modified independent with all mobilities and ambulation without AD but lately has been using 4WW due to dizziness; stated that pt has trigeminal neuralgia for years Social History Household Members spouse Living Arrangements House Number of Floors (Floors) One Floor Number of Stairs To Enter/Railing? 5 steps to enter with R rail ascending Home Environment High Toilet,Walk in Shower, Built-In Shower Seat Home Equipment Front Wheel Walker,Four Wheel Walker,Hand Held Shower,Grab Bars In Shower M2 PT-IP Current Condition Start: 03/31/20 15:52 Freq: NEEDED Status: Active Protocol: Document 03/31/20 14:13 AB (Rec: 03/31/20 16:11 AB [email or web address]) Physical Therapy Current Condition Current Condition Evaluation Date 03/31/20 Treatment Diagnosis toxic encephalopathy; difficulty in walking Onset Date 03/30/20 Precautions Other Precautions Falls M3 PT-IP Subjective Start: 03/31/20 15:52 Freq: NEEDED Status: Active Protocol: Document 03/31/20 14:13 AB (Rec: 03/31/20 16:11 AB [email or web address]) Subjective Physical Therapy Visit Type Type Initial Evaluation Visit Start Time 14:13 Visit Stop Time 14:42 Total Visit Minutes 29 Number of PACKAGING DESIGNER Visits 0 Physical Therapy Visit Comments Patient Comments pt is very restless and keeps getting out of the bed. M4 PT-IP Mobility and Gait Start: 03/31/20 15:52 Freq: NEEDED Status: Active Protocol: Document 03/31/20 14:13 AB (Rec: 03/31/20 16:11 AB [email or web address]) PT-Bed Mobility Assessment Supine to Sit Supine to Sit Standby Assistance Sit to Supine Sit to Supine Standby Assistance PT-Transfer Assessment Sit to and From Stand Sit to and from Stand Moderate Assistance,Maximum Assistance,1 Person Assistance ,Use of Upper Extremities Comments Mobility Comments pt has difficulty following directions and has decrease safety awareness. completed supine to sit SBA and was able to sit on EOB SBA. assisted with putting slippers on as requested. completed sit to stand x 3 reps mod to max A and cues. pt tends to rock forward/backward to get up from the bed. pt ambulated in room using FWW min A ~ 50 ft. Pt has difficulty following directions and requires max cues with all tasks. pt went back to bed and completed sit to supine SBA. positioned pt in bed. call light and table placed within reach. Gait Assessment Gait Gait Assistance Required: Minimum Assistance Distance (Feet) 50 Able to Maintain Weight Bearing Status Yes During Gait Assistive Devices Assistive Device Gait Belt,Front Wheeled Walker Gait Deviations General Gait Pattern Decreased Stride Length, Decreased Feet Clearance,Step- to Gait Factors Limiting Gait Function Factors Limiting Gait Function Decreased Activity Tolerance, Decreased Strength,Difficulty Following Directions,Pain,Poor Balance,Poor Safety Awareness PT-Balance Assessment Sitting Balance and Reactions Static Sitting Balance Ability Good Dynamic Sitting Balance Ability Good Standing Balance and Reactions Static Standing Balance Ability Fair Dynamic Standing Balance Ability Fair Device Used FWW M5 PT-IP Objective Assessments Start: 03/31/20 15:52 Freq: NEEDED Status: Active Protocol: Document 03/31/20 14:13 AB (Rec: 03/31/20 16:11 AB [email or web address]) Orientation Orientation/Cognition Level of Alertness Confusional State Orientation Name Language Function Ability Hard of Hearing Safety Awareness Decreased Safety Awareness Gross Range of Motion Lower Extremity ROM Assessment Within Functional Limits Strength Lower Extremity Strength Hip 4-/5 Knee 4-/5 Muscle Tone Muscle Tone WNL Yes M6 PT-IP Treatment Start: 03/31/20 15:52 Freq: NEEDED Status: Active Protocol: Document 03/31/20 14:13 AB (Rec: 03/31/20 16:11 AB [email or web address]) Physical Therapy Treatment Education Education Provided Safety M7 PT-IP Assessment and Plan Start: 03/31/20 15:52 Freq: NEEDED Status: Active Protocol: Document 03/31/20 14:13 AB (Rec: 03/31/20 16:11 AB [email or web address]) PT Summary Assessment and Plan Potential Rehabilitation Potential Fair Status of Condition at Evaluation Evolving Summary Impairments Pain,ROM,Strength,Balance, Coordination,Sensation,Tone, Cognition,Bed Mobility, Transfers,Gait,Activity Tolerance Assessment Summary pt requiring min to mod A/max A with mobility using FWW and confusion influencing mobility and safety awareness. pt lives with spouse and d/c plan depending on progress and will require further assessment. Pt may require SNF rehab at this time. will continue to assess. Goals Bed Mobility Goal Independent Transfer Goal Independent,Front Wheeled Walker Gait Goal Independent,Front Wheel Walker Gait Distance 150 Other Goals ambulation using 4WW 200 ft mod I up/donw 5 steps R rail ascending SBA Days to Meet Goals 5 Frequency of Treatment Frequency Of Treatment Once a Day Treatment Plan Physical Therapy Treatment Plan Bed Mobility Training,Transfer Training,Gait Training, Therapeutic Exercise,Balance Retraining,Post Op Education, Discharge Planning,Hot or Cold Pack,Neuromuscular Re-ed, Coordination Retraining,Manual Therapy Other Recommendations and Next Treatment ambulation, stair climbing, Focus caregiver training when appropriate Recommendations To Nursing Amount of Assist Needed 1 Person Assist Discharge Recommendations PT Discharge Recommendations Home with 06/02 Assist,Home Health,SNF Rehab Transportation Needs at Discharge Private Vehicle,Wheelchair/ Cabulance
--- NOTE | 2020-03-31 14:26 | P.PN_ITS ---
Subjective Subjective Date Patient Seen: 03/31/20 Interval history: Patient seen and examined at the bedside. His reports that he has cleared in terms of his mental status but still remains off from his baseline. The patient continues to complain of pain in both jaws. He is very restless. At times is trying to get up out of bed and walk. Patient receive 1 dose of Tylenol with codeine and additional Tylenol without improvement. He was given a dose of Ultram subsequently. Exam Vital Signs (past 8 hours): - 03/31/20 07:47 03/31/20 08:00 03/31/20 12:00 Temperature 98.2 F 98.2 F Pulse Rate 86 83 94 H Respiratory Rate 18 17 18 Blood Pressure 160/88 H 161/81 H Pulse Oximetry 97 94 98 Oxygen Delivery Method Room Air Oxygen Flow Rate 0 Narrative Exam Narrative: Pleasant confused male sitting up in bed Lungs: Clear to auscultation Cardiac exam: Regular rate rhythm normal S1-S2 Abdomen: Soft nontender nondistended Extremities: No edema Objective Labs Result Diagrams: 03/30/20 20:35 03/31/20 05:45 Labs: Laboratory Results - last 24 hr 03/30/20 03/30/20 03/30/20 20:35 20:35 20:35 WBC 7.0 RBC 3.62 L Hgb 11.7 L Hct 35.4 L MCV 97.9 MCH 32.3 MCHC 33.0 RDW 14.1 Plt Count 229 Neut % (Auto) 67.7 Lymph % (Auto) 23.7 L Douglas % (Auto) 6.7 Eos % (Auto) 1.4 L Baso % (Auto) 0.5 Neut # (Auto) 4700 Lymph # (Auto) 1700 Douglas # (Auto) 500 Eos # (Auto) 100 Baso # (Auto) 0 PT INR APTT Sodium 138 Potassium 6.2 H Chloride 103 Carbon Dioxide 27 BUN 27 H Creatinine 1.27 H Estimated GFR 54.3 L BUN/Creatinine Ratio 21.3 Glucose 141 H Hemoglobin A1c Lactate Calcium 9.4 Magnesium Total Bilirubin 0.7 AST 46 ALT 16 Alkaline Phosphatase 63 Ammonia Total Creatine Kinase CK-MB (CK-2) CK-MB (CK-2) Rel Index Troponin I Total Protein 7.5 Albumin 4.1 Globulin 3.4 Albumin/Globulin Ratio 1.2 Lipase 31 Procalcitonin < 0.05 Urine Color Urine Appearance Urine pH Ur Specific [place] Urine Protein Urine Glucose (UA) Urine Ketones Urine Occult Blood Urine Nitrate Urine Bilirubin Urine Urobilinogen Ur Leukocyte Esterase Urine RBC Urine WBC Ur Squamous Epith Cells Urine Bacteria Ur Culture Indicated? U Opiates 300ng/mL cut Ur Oxycodone Screen Urine Methadone Screen Ur Barbiturates Screen U Tricyclic Antidepress Ur Phencyclidine Scrn Ur Amphetamines Screen U Methamphetamines Scrn Ur MDMA Scrn (Ecstasy) U Benzodiazepines Scrn Urine Cocaine Screen U Marijuana (THC) Screen Ethyl Alcohol < 10 COVID-19 [facility] [place] 03/30/20 03/30/20 03/30/20 20:35 20:35 20:35 WBC RBC Hgb Hct MCV MCH MCHC RDW Plt Count Neut % (Auto) Lymph % (Auto) Douglas % (Auto) Eos % (Auto) Baso % (Auto) Neut # (Auto) Lymph # (Auto) [place] # (Auto) Eos # (Auto) Baso # (Auto) PT INR APTT Sodium Potassium Chloride Carbon Dioxide BUN Creatinine Estimated GFR BUN/Creatinine Ratio Glucose Hemoglobin A1c Lactate 1.7 Calcium Magnesium 1.5 L Total Bilirubin AST ALT Alkaline Phosphatase Ammonia Total Creatine Kinase 122 CK-MB (CK-2) 3.00 H CK-MB (CK-2) Rel Index 2.5 Troponin I 0.012 Total Protein Albumin Globulin Albumin/Globulin Ratio Lipase Procalcitonin Urine Color Urine Appearance Urine pH Ur Specific [place] Urine Protein Urine Glucose (UA) Urine Ketones Urine Occult Blood Urine Nitrate Urine Bilirubin Urine Urobilinogen Ur Leukocyte Esterase Urine RBC Urine WBC Ur Squamous Epith Cells Urine Bacteria Ur Culture Indicated? U Opiates 300ng/mL cut Ur Oxycodone Screen Urine Methadone Screen Ur Barbiturates Screen U Tricyclic Antidepress Ur Phencyclidine Scrn Ur Amphetamines Screen U Methamphetamines Scrn Ur MDMA Scrn (Ecstasy) U Benzodiazepines Scrn Urine Cocaine Screen U Marijuana (THC) Screen Ethyl Alcohol COVID-19 [facility] 03/30/20 03/30/20 03/30/20 20:50 20:50 22:41 WBC RBC Hgb Hct MCV MCH MCHC RDW Plt Count Neut % (Auto) Lymph % (Auto) [place] % (Auto) Eos % (Auto) Baso % (Auto) Neut # (Auto) Lymph # (Auto) Douglas # (Auto) Eos # (Auto) Baso # (Auto) PT 12.5 INR 1.1 APTT 32 Sodium Potassium Chloride Carbon Dioxide BUN Creatinine Estimated GFR BUN/Creatinine Ratio Glucose Hemoglobin A1c Lactate Calcium Magnesium Total Bilirubin AST ALT Alkaline Phosphatase Ammonia < 9 L Total Creatine Kinase CK-MB (CK-2) CK-MB (CK-2) Rel Index Troponin I Total Protein Albumin Globulin Albumin/Globulin Ratio Lipase Procalcitonin Urine Color Yellow Urine Appearance Clear Urine pH 6.5 Ur Specific [place] 1.015 Urine Protein 1+ H Urine Glucose (UA) Negative Urine Ketones Trace H Urine Occult Blood Negative Urine Nitrate Negative Urine Bilirubin Negative Urine Urobilinogen 1.0 Ur Leukocyte Esterase Negative Urine RBC None seen Urine WBC None seen Ur Squamous Epith Cells 0-1 /hpf Urine Bacteria Occasional (0-1) D Ur Culture Indicated? Cult not indicated U Opiates 300ng/mL cut Ur Oxycodone Screen Urine Methadone Screen Ur Barbiturates Screen U Tricyclic Antidepress Ur Phencyclidine Scrn Ur Amphetamines Screen U Methamphetamines Scrn Ur MDMA Scrn (Ecstasy) U Benzodiazepines Scrn Urine Cocaine Screen U Marijuana (THC) Screen Ethyl Alcohol COVID-19 PCR 03/30/20 03/30/20 03/31/20 22:41 23:18 05:45 WBC RBC Hgb Hct MCV MCH MCHC RDW Plt Count Neut % (Auto) Lymph % (Auto) [place] % (Auto) Eos % (Auto) Baso % (Auto) Neut # (Auto) Lymph # (Auto) [place] # (Auto) Eos # (Auto) Baso # (Auto) PT INR APTT Sodium 139 Potassium 5.8 H Chloride 101 Carbon Dioxide 30 BUN 24 H Creatinine 1.30 H Estimated GFR 52.9 L BUN/Creatinine Ratio 18.5 Glucose 169 H Hemoglobin A1c Lactate Calcium 10.0 Magnesium Total Bilirubin AST ALT Alkaline Phosphatase Ammonia Total Creatine Kinase CK-MB (CK-2) CK-MB (CK-2) Rel Index Troponin I Total Protein Albumin Globulin Albumin/Globulin Ratio Lipase Procalcitonin Urine Color Urine Appearance Urine pH Ur Specific [place] Urine Protein Urine Glucose (UA) Urine Ketones Urine Occult Blood Urine Nitrate Urine Bilirubin Urine Urobilinogen Ur Leukocyte Esterase Urine RBC Urine WBC Ur Squamous Epith Cells Urine Bacteria Ur Culture Indicated? U Opiates 300ng/mL cut Positive H Ur Oxycodone Screen Negative Urine Methadone Screen Negative Ur Barbiturates Screen Negative U Tricyclic Antidepress Negative Ur Phencyclidine Scrn Negative Ur Amphetamines Screen Negative U Methamphetamines Scrn Negative Ur MDMA Scrn (Ecstasy) Negative U Benzodiazepines Scrn Negative Urine Cocaine Screen Negative U Marijuana (THC) Screen Negative Ethyl Alcohol COVID-19 PCR Negative 03/31/20 05:45 WBC RBC Hgb Hct MCV MCH MCHC RDW Plt Count Neut % (Auto) Lymph % (Auto) [place] % (Auto) Eos % (Auto) Baso % (Auto) Neut # (Auto) Lymph # (Auto) [place] # (Auto) Eos # (Auto) Baso # (Auto) PT INR APTT Sodium Potassium Chloride Carbon Dioxide BUN Creatinine Estimated GFR BUN/Creatinine Ratio Glucose Hemoglobin A1c 7.8 H Lactate Calcium Magnesium Total Bilirubin AST ALT Alkaline Phosphatase Ammonia Total Creatine Kinase CK-MB (CK-2) CK-MB (CK-2) Rel Index Troponin I Total Protein Albumin Globulin Albumin/Globulin Ratio Lipase Procalcitonin Urine Color Urine Appearance Urine pH Ur Specific [place] Urine Protein Urine Glucose (UA) Urine Ketones Urine Occult Blood Urine Nitrate Urine Bilirubin Urine Urobilinogen Ur Leukocyte Esterase Urine RBC Urine WBC Ur Squamous Epith Cells Urine Bacteria Ur Culture Indicated? U Opiates 300ng/mL cut Ur Oxycodone Screen Urine Methadone Screen Ur Barbiturates Screen U Tricyclic Antidepress Ur Phencyclidine Scrn Ur Amphetamines Screen U Methamphetamines Scrn Ur MDMA Scrn (Ecstasy) U Benzodiazepines Scrn Urine Cocaine Screen U Marijuana (THC) Screen Ethyl Alcohol COVID-19 PCR Assessment & Plan Assessment & Plan narrative: his is an 84-year-old male patient who presents to the ER with his reports of altered mental status following sustaining a fall 2 days ago. 1. 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 -the patient has been prescribed gabapentin for trigeminal neuralgia 600 mg 3 times daily and the patient endorses taking multiple additional doses over the last 2 days to manage pain. -the patient developed acute altered mental status today with confusion and disorientation. No evidence of infection or metabolic imbalance, no hypoglycemia or lateralizing symptoms and would account for the patient's diarrhea. Based on renal dosing for patient's current renal function he should be taking 200 to 700 mg twice daily. -will decrease gabapentin dose to avoid abrupt withdrawal, ordered gabapentin 400 mg 3 times daily, consult pharmacy pharmacist to recommended decreasing dose 400 mg every 2 days to taper to appropriate dose. -ordered neurological assessment of orientation, agitation or anxiety and myoclonus each shift. -patient continues to be confused, will continue to monitor closely 2. Acute Hyperkalemia, present on admission, active -potassium on admission is 6.2. 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 It is still unclear whether the patient was taken spironolactone but based on his potassium it appears that he was -would discontinue spironolactone and continue to monitor potassium closely -if potassium remains at it may consider discontinuation of losartan as well 3. Chronic kidney disease stage 3, chronic, stable -to patient was born with a single kidney and has chronic kidney disease stage 3 with a creatinine of 1.27 an EGFR of 54.3 and a calculated creatinine clearance 57.53 which demonstrates and improvement over prior reading. -will renally dose medications -avoid renal toxic agents. -continue losartan, discontinue spironolactone 4. 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 -patient's last echocardiogram was in January of 2018 revealing 1) Mildly enlarged left ventricle with moderately reduced function (EF 35- 40%). 2) Moderate global hypokinesis with akinesis of the mid to apical septum. 3) Grossly, normal right ventricular size and function. 4) No significant valvular abnormalities. 5) No prior Echo available for comparison. -the patient denies shortness of breath but is mildly tachypneic at 20 with oxygen saturation of 95%. -ordered 40 mg of Lasix IV x1. It is unclear the patient is taking spironolactone. -requested respiratory therapy to consult, evaluate and treat. -will evaluate patient's response and consider repeat echocardiogram otherwise may follow-up on an outpatient basis. -no evidence of acute heart failure at this time 5. Essential hypertension, chronic, stable. -dmission pressure of 176/83 improving to 154/87. -will continue patient's home regimen of losartan 100 mg daily. -resume metoprolol 50 b.i.d. which is a home med as well 6. Diabetes type 2,, uncontrolled, chronic, is stable -patient with a blood sugar of 141 on admission labs. -his most recent hemoglobin A1c on record is 11/29/2019 which was 9.0 reflective of uncontrolled diabetes. -will continue patient's home regimen of metformin 500 mg p.o. twice daily. Per the patient's home med list is no longer using insulin. -will check glucose a.c. and HS and cover with low-dose correctional insulin. -will recheck hemoglobin A1c. 7. , hyperlipidemia, chronic, stable -continue patient's home regimen of atorvastatin 40 mg daily VTE prophylaxis: SCDs, heparin IV fluid: Saline lock Diet: constant carbohydrate, Heart healthy. Code status: Full code patient designates his to be surrogate decision maker. Will continue to monitor mental status, will add Lortab for pain control. Hopefully patient will be able to be discharged in 1-2 days. Quality VTE Deep Vein Thrombosis/Pulmonary Embolism Present on Admission: No
[2020-03-31] MEDS: METOPROLOL ER 50 MG TABLET PO ×2 (15:30→20:53)
--- NOTE | 2020-03-31 16:46 | OT.IP.EVAL ---
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) Thyroid nodule (Acute) Surgical History (Last Reviewed 03/31/20 @ 01:59 by DANIELLE Singh) H/O sinus surgery (Acute) History of brain surgery (Acute) History of cholecystectomy (Chronic) S/P CABG x 4 (Chronic) Occupational Therapy Inpatient Evaluation/Re-Eval M1 PT/OT-IP Prior Functional Status Start: 03/31/20 17:32 Freq: NEEDED Status: Active Protocol: Document 03/31/20 15:57 [facility] (Rec: 03/31/20 18:13 [facility] [email or web address]) Medical Review Prior Functional Status Medical History Reviewed Yes Communication able to make needs known Mobility and Gait pt with confusion; spouse in room with pt and provided pt's PLOF and home set up: stated that pt is modified independent with all mobilities and ambulation without AD but lately has been using 4WW due to dizziness; stated that pt has trigeminal neuralgia for years Activities of Daily Living and IADL's Pt's states prior able to do all his ADL's, able to heat up meals in the microwave , and did his own medications. Pt's states in the past few days used a FWW and 4WW. Pt's states does the bills. Social History Household Members spouse Living Arrangements House Number of Floors (Floors) One Floor Number of Stairs To Enter/Railing? 5 steps to enter with R rail ascending Home Environment High Toilet,Walk in Shower, Built-In Shower Seat Home Equipment Front Wheel Walker,Four Wheel Walker,Hand Held Shower,Grab Bars In Shower M2 OT-IP Current Condition Start: 03/31/20 17:32 Freq: Status: Active Protocol: Document 03/31/20 15:57 [facility] (Rec: 03/31/20 18:13 [facility] [email or web address]) Occupational Therapy Current Condition Current Condition Evaluation Date 03/31/20 Treatment Diagnosis Toxic encephalopathy, altered mental status Diagnosis Onset Date 03/30/20 M3 OT- IP Subjective and Pain Start: 03/31/20 17:32 Freq: Status: Active Protocol: Document 03/31/20 15:57 [facility] (Rec: 03/31/20 18:13 [facility] [email or web address]) OT- Subjective Occupational Therapy Visit Type Type Initial Evaluation Visit Start Time 15:57 Visit Stop Time 16:46 Total Visit Minutes 49 Occupational Therapy Visit Comments Patient Comments Pt's present in the room. Patient/Caregiver Goals To go home when medically stable. OT Pain Assessment Pain When Pain Assessed At Rest Pain Present Pain Present Denied Pain M4 OT- IP ADL's Start: 03/31/20 17:32 Freq: Status: Active Protocol: Document 03/31/20 15:57 [facility] (Rec: 03/31/20 18:13 [facility] [email or web address]) OT [id number] Comments OT Self-Feeding Comments Pt needing assist to open the Ensure bottle and paper from the straw. Initially having to hold the Ensure for pt and then able to hold it on his own. Pt having poor initiation and would benefit form supervision during eating at this time due to poor initiation. OT ADL-Grooming General Evaluation Grooming Ability Moderate Assistance Areas Needing Assistance Combing/Brushing Hair Comments OT Grooming Comments Pt poor initiation and needing to have wash cloth placed in his hands so able to wash his face, brush placed in his hands and then after timed place able to brush his hair. OT ADL-Oral Care Comments Oral Care Comments Not performed. OT ADL-Dressing Comments OT Dressing Comments Not performed. OT ADL-Toileting Comments OT Toileting Comments Not performed. OT ADL-Bathing Comments OT Bathing Comments Not at this time. M5 OT- IP IADL's Start: 03/31/20 17:32 Freq: Status: Active Protocol: Document 03/31/20 15:57 [facility] (Rec: 03/31/20 18:13 [facility] [email or web address]) OT-Instrumental Activities of Daily Living Home Safety Awareness Awareness of Need for Assistance at Home Decreased Awareness Ability to Problem Solve Emergency Unable to Problem Solve Situations Home Safety Comments At this time pt is confused, decreased initiation, and problem solving and if going home will need his to assist for all needs to help sequence through tasks of ADl' s and mobility. Medication Management Medication Management Caregiver Administers Money Management Money Management Caregiver Provides Assistance Meal Preparation Meal Preparation Caregiver Provides Assist Us Marketing Director Us Marketing Director Caregiver Provides Assist Driving Driving Caregiver Provides Assist M6 OT- IP Functional Cognition Start: 03/31/20 17:32 Freq: Status: Active Protocol: Document 03/31/20 15:57 [facility] (Rec: 03/31/20 18:13 [facility] [email or web address]) Cognitive Factors Limiting Selfcare Function Cognitive Ability Level of Alertness Confusional State Patient Orientation Name Attention Span Ability Unable to Focus,Unable to Sustain Attention Ability to Follow Commands Able to Follow One Step Commands with Increased Time, Able to Follow One Step Commands with Repetition Memory Description Short Term Impaired,Working Impaired Safety Awareness Underestimates Need for Assistance Problem Solving Ability Unable to Identify Errors, Needs Assist to Identify Solutions Cognitive Comments Cognitive Assessment Comments Pt mainly just orientated to name. Pt able to state his name but not able to recall his son's names. Nursing notified of pt's confusion and decreased initiation. OT- Vision and Hearing OT- Hearing Assessment OT- Hearing Assessment Use of Hearing Aids OT- Vision Assessment Vision Assessment Comments Pt's states has decreased vision due to trigeminal neuralgia sx. M7 OT- IP Mobility and Balance Start: 03/31/20 17:32 Freq: Status: Active Protocol: Document 03/31/20 15:57 [facility] (Rec: 03/31/20 18:13 [facility] [id number]) OT- Bed Mobility Assessment Supine to Sit Supine to Sit Assist Standby Assistance,Bedrails Sit to Supine Sit to Supine Assist Standby Assistance,Bedrails OT-Transfer Assessment Sit to and From Stand Sit to and from Stand Minimal Assistance Transfers Transfer Ability Contact Guard Assistance, Minimal Assistance Technique Transfer Destination Bed,Chair Devices Transfer Assistive Devices Gait Belt,Front Wheeled Walker Comments Mobility Comments Pt needing to use momentum to rock up and down and use of right hand on the bed rail to sit up into long sitting and then swing his legs over to the edge of the bed. Sit to stand TC and from CGA to TC with FWW. VC to keep the FWW in front of him. OT- Balance Assessment Sitting Balance and Reactions Static Sitting Balance Ability Good Standing Balance and Reactions Static Standing Balance Ability Fair M8 OT- IP Objective Assessments Start: 03/31/20 17:32 Freq: Status: Active Protocol: Document 03/31/20 15:57 [facility] (Rec: 03/31/20 18:13 [facility] [id number]) OT Strength Comments Strength Comments Pt having difficulty to follow directions, BUE strength at least 4-/5 throughout. 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 Pt having difficulty with initiation of movement , sequencing through tasks, and needing TC for mobility needs at this time. Pt will now require 24/7 assist. Therefore pending 's ability to care for the pt recommend skilled rehab versus home with 24/7 assist. Goals Grooming Goal Independent Dressing Goal Independent Toileting Goal Independent Bathing Goal Independent Toilet Transfer Goal Independent Shower Transfer Goal Independent Patient/Caregiver Education Goal Caregiver Independent Assisting Patient Days to Meet Goals 49 Frequency of Treatment Frequency Of Treatment Once a Day Treatment Plan OT Treatment Plan ADL Training,Functional Cognition Training,Functional Mobility,Patient/Family Education,Discharge Planning Other Treatment Recommendations and Next Shower Treatment Focus Discharge Recommendations OT Discharge Recommendations Home with 24/7 Assist,Home Health,SNF Rehab Transportation Needs at Discharge Private Vehicle
--- NOTE | 2020-03-31 18:28 | PC.NURSE ---
Addendum entered by Chastity Robles R.N. 03/31/20 23:20: Pt restless throughout evening. Remains confused, Requires many ques for activities. rooming in. CBG 170 @ HS Call light w/in range, bed alarm on for pt safety. Continue w/plan of care. Original Note: Pt sat in chair for dinner, Denies any discomfort at this time. Pt forgetful and oriented to self. Lungs shallow but clear, SpO2 94% RA HL RFA intact/patent. Call light w/in reach, bed alarm on for pt safety.
[2020-03-31] MEDS: ATORVASTATIN 20 MG TABLET 40 MG PO (20:52)
[2020-03-31] MEDS: GABAPENTIN 400 MG CAPSULE PO (20:53)
[2020-03-31] MEDS: HYDROCODONE/ACET 5/325 TABLET 1 TAB PO (20:53)
[2020-03-31] MEDS: TAMSULOSIN 0.4 MG CAPSULE PO (21:13)
[2020-04-01] VITALS (10 sets, daily range): BP systolic 121–180; BP diastolic 66–93; PULSE 70–88; RESP 15–18; TEMP 36.1–36.8; O2SAT 94–97
[2020-04-01 06:07] LABS: BUN Creatinine Ratio 19.1 (6-22); Blood Urea Nitrogen 25 mg/dL (9-20); Calcium 9.8 mg/dL (8.4-10.2); Carbon Dioxide 26 mmol/L (22-32); Chloride 101 mmol/L (98-107); Estimated Glomerular Filt Rate 52.4 mL/min (>60); Glucose 162 mg/dL (80-110); HEMOLYSIS < 15 (0-50); Magnesium 1.3 mg/dL (1.6-2.3); Potassium 4.1 mmol/L (3.4-5.1); Sodium 139 mmol/L (137-145)
--- NOTE | 2020-04-01 06:44 | PC.NURSE ---
04/01 @ 0100 Bed Alarm going off. Patient getting OOB. I placed walker in front of patient. Patient gets up from bed walks around walker. Patient not cooperating with safety. Patient is not steady on his feet. I hold onto back of patients gown to try to keep him from falling . Patient walks out into the hallway. Patient not orientated to place walked to the dirty utility room. Carly Crews RN and Carly York RN intervened after patient pushed his elbow into my left forearm. Patient walked to room 203 and preceeded to use the bathroom. Patient escorted back to his room and safety measure in place
[2020-04-01] MEDS: MAGNESIUM SULFATE 2 GM/50 ML PIGGYBACK IV (07:01)
[2020-04-01] MEDS: INSULIN ASPART 100 UNIT/ML INSULN PEN SUBCUT ×4 (09:31→21:51)
[2020-04-01] MEDS: HEPARIN 5,000 UNIT/ML VIAL 5000 UNIT SUBCUT ×2 (09:32→21:48)
[2020-04-01] MEDS: METOPROLOL ER 50 MG TABLET PO ×2 (09:33→21:48)
[2020-04-01] MEDS: CLOPIDOGREL 75 MG TABLET PO (09:33)
[2020-04-01] MEDS: GABAPENTIN 400 MG CAPSULE PO (09:33)
[2020-04-01] MEDS: METFORMIN HCL 500 MG TABLET PO ×2 (09:33→16:35)
[2020-04-01] MEDS: PANTOPRAZOLE 40 MG TABLET PO (09:34)
[2020-04-01] MEDS: MAGNESIUM OXIDE 400 MG TABLET PO (09:35)
--- NOTE | 2020-04-01 10:47 | PC.NURSE ---
Addendum entered by Michelle Resendiz R.N. 04/01/20 13:49: Patient just given a shower with occupational therapist. Back to chair and resting comfortably. Original Note: Patient is confused and not following direction well, he had to be qued all the way to the bathroom and was not following commands well. His is helpful with patient and he tends to respond to her the best. She stayed the night last night, patient seemed to have a hard time on evening and noc, possible that he may . Previously was independent with his medications at home. Patient was taking large amounts of gabapentin per report from Noc shift RN. He is sitting up in the chair, assisted patient with eating. He does not know where he is at but is familiar to his wifes face. Patient heplocked and resting in chair. He has been appropriate with in his room.
--- NOTE | 2020-04-01 11:22 | PT.IPTN ---
Current Diagnoses Altered mental status, unspecified (03/31/20) Physical Therapy Treatment Note M2 PT-IP Current Condition Start: 03/31/20 15:52 Freq: NEEDED Status: Active Protocol: Document 03/31/20 14:13 [facility] (Rec: 03/31/20 16:11 [facility] [id number]) Physical Therapy Current Condition Current Condition Evaluation Date 03/31/20 Treatment Diagnosis toxic encephalopathy; difficulty in walking Onset Date 03/30/20 Precautions Other Precautions Falls M3 PT-IP Subjective Start: 03/31/20 15:52 Freq: NEEDED Status: Active Protocol: Document 04/01/20 11:00 [facility] (Rec: 04/01/20 12:47 SP [id number]) Subjective Physical Therapy Visit Type Type Treatment Note Visit Start Time 11:00 Visit Stop Time 11:22 Total Visit Minutes 22 Notes completed caregiver training and provided physical assistance needed during treatment. Number of PARKING MANAGER Visits 1 Physical Therapy Visit Comments Patient Comments Pt willing to work with therapy. Patient Goals To return home with his to assist him. Therapy Pain Assessment Pain Present Pain Present Denied Pain M4 PT-IP Mobility and Gait Start: 03/31/20 15:52 Freq: NEEDED Status: Active Protocol: Document 04/01/20 11:00 [facility] (Rec: 04/01/20 12:47 [facility] [id number]) PT-Transfer Assessment Sit to and From Stand Sit to and from Stand Contact Guard Assistance,Use of Upper Extremities Equipment Transfer Assistive Device Gait Belt,Front Wheeled Walker Orthotic/Prosthetic Devices or Brace: No Transfers Transfer Destination Chair Transfer Technique pt ambulated using fWW Transfer Ability Level of Assist Contact Guard Assistance,Use of Upper Extremities Comments Mobility Comments Pt was seated in chair when arrived. donned gait belt , Sit> stand CGA pushing from chair and using FWW. Pt ambulated further distance into hallway to stairs and back to chair in room approx 120 ft total CGA by , PARKING MANAGER provided w/c follow but not needed and managed IV pole. Pt was able to ascend/descend 3 stairs using R HR x2 to assimulate garage enterance but stated would probable use front enterance platform steps of which he could use the FWW , complete 3 platform steps CGA by , occasional cuing for safety hand placement under handed and safety slow pacing fWW on step awareness. Pt demonstrated increased safety during transfers and gait with occasional cuing for hand placement and good body positioning close to FWW without cuing required. Pt SPT usign FWW backing up and good slow descent to chair when returned to room. Chair alarm donned, and all needs and call light in reach before left. Pt has made significant gains durign tx today. Pt would be ok to return home with his to assist him when medically stable. Recommending home health PT, pt would benefit from further skilled therapy to improved strength and balance toward functional independence. Gait Assessment Gait Gait Assistance Required: Minimum Assistance Distance (Feet) 120 Able to Maintain Weight Bearing Status Yes During Gait Assistive Devices Assistive Device Gait Belt,Front Wheeled Walker Orthotic/Prosthetic Devices or Brace: No Gait Deviations General Gait Pattern Decreased Stride Length, Decreased Feet Clearance Factors Limiting Gait Function Factors Limiting Gait Function Decreased Activity Tolerance, Decreased Strength,Pain,Poor Balance,Poor Safety Awareness Comments Gait Comments See mobility comment for details. Stair Climbing Assessment Evaluation Level of Assist On Stairs Contact Guard Assistance Devices Stair Climbing Assistive Devices Front Wheel Walker,Right Railing Technique/Endurance Stair Climbing Direction Ascend and Descend Stair Climbing Technique Step to Step Number of Steps Climbed 3 Stair Climbing Set # Repetitions (reps) 2 Comments Stair Climbing Comments Ascend/descend 6 stairs RHR CGA and platform step using fWW 1 step x3 CGA. PT-Balance Assessment Sitting Balance and Reactions Static Sitting Balance Ability Good Dynamic Sitting Balance Ability Good Standing Balance and Reactions Static Standing Balance Ability Good Dynamic Standing Balance Ability Fair Device Used FWW M5 PT-IP Objective Assessments Start: 03/31/20 15:52 Freq: NEEDED Status: Active Protocol: Document 03/31/20 14:13 [facility] (Rec: 03/31/20 16:11 [facility] [id number]) Orientation Orientation/Cognition Level of Alertness Confusional State Orientation Name Language Function Ability Hard of Hearing Safety Awareness Decreased Safety Awareness Gross Range of Motion Lower Extremity ROM Assessment Within Functional Limits Strength Lower Extremity Strength Hip 4-/5 Knee 4-/5 Muscle Tone Muscle Tone WNL Yes M6 PT-IP Treatment Start: 03/31/20 15:52 Freq: NEEDED Status: Active Protocol: Document 04/01/20 11:00 [facility] (Rec: 04/01/20 12:47 [facility] [id number]) Physical Therapy Treatment Education Education Provided Safety M7 PT-IP Assessment and Plan Start: 03/31/20 15:52 Freq: NEEDED Status: Active Protocol: Document 04/01/20 11:00 [facility] (Rec: 04/01/20 12:47 [facility] [id number]) PT Summary Assessment and Plan Potential Rehabilitation Potential Fair Status of Condition at Evaluation Evolving Summary Impairments Pain,ROM,Strength,Balance, Coordination,Sensation,Tone, Cognition,Bed Mobility, Transfers,Gait,Activity Tolerance Assessment Summary pt requiring cGA with mobility using FWW with increased alertness requiring occasional cuing for hand placement sit< > stand. Pt may return home with to assist him, recommending HHPT to improve strength, balance toward functional independence in mobility when medically stable . Goals Bed Mobility Goal Independent Transfer Goal Independent,Front Wheeled Walker Gait Goal Independent,Front Wheel Walker Gait Distance 150 Other Goals ambulation using 4WW 200 ft mod I up/donw 5 steps R rail ascending SBA Days to Meet Goals 5 Frequency of Treatment Frequency Of Treatment Once a Day Treatment Plan Physical Therapy Treatment Plan Bed Mobility Training,Transfer Training,Gait Training, Therapeutic Exercise,Balance Retraining,Post Op Education, Discharge Planning,Hot or Cold Pack,Neuromuscular Re-ed, Coordination Retraining,Manual Therapy Other Recommendations and Next Treatment Le exercises, balance Focus activities, assess gait using 4WW if not safe with fWW. Recommendations To Nursing Amount of Assist Needed 1 Person Assist Discharge Recommendations PT Discharge Recommendations Home with 06/02 Assist,Home Health Transportation Needs at Discharge Private Vehicle,Wheelchair/ Cabulance
--- NOTE | 2020-04-01 11:24 | PM.PN.1 ---
Subjective Subjective Date Patient Seen: 04/01/20 Interval history: The patient is resting in bedside chair comfortably. He has no complaints overall. His trigeminal neuralgia is controlled on lower dose of gabapentin. He has not received pain medication including tramadol or hydrocodone since yesterday. He continues to have mild confusion but per spouse at bedside he is near his baseline mentation. Discussed over medicating on gabapentin leading to decreased renal clearance of home medications including: Losartan and spironolactone. Plan to restart home dose of losartan previously listed as 100 mg and received double his dose yesterday as well as half his home dose of spironolactone and monitor renal function and potassium level. He denies headache, shortness of breath, chest pain, abdominal pain, nausea, vomiting, fever, chills, dysuria, diarrhea or constipation. He does endorse chronic nonproductive cough. He is voiding and eliminating without difficulty. He is up ambulating with assistance. Exam Vital Signs (past 8 hours): - 04/01/20 05:00 04/01/20 05:57 04/01/20 07:40 Temperature 97.9 F 97.3 F L Pulse Rate 84 81 Respiratory Rate 18 15 Blood Pressure 180/93 H 145/73 H 148/79 H Pulse Oximetry 97 96 Oxygen Delivery Method Room Air Oxygen Flow Rate 0 Narrative Exam Narrative: General: Elderly male sitting in bedside chair and in no acute distress, well-developed, well-nourished, appropriately interactive. HEENT: Normocephalic, atraumatic. External ears without defect. Pupils equal, round, and reactive to light and accommodation. Anicteric sclerae, moist conjunctivae, and no lid lag. Oropharynx free of erythema and cobble stoning with moist mucosa. Neck: Supple with full range of motion. No jugular venous distension. No lymphadenopathy or thyromegaly. Cardiovascular: Regular rate and rhythm without murmurs, rubs, or gallops appreciated Pulmonary: Clear to auscultation bilaterally with bibasilar crackles. No wheezes, or rhonchi. Normal respiratory effort with no use of accessory muscles. Abdomen: Soft, bowel sounds present, nontender, nondistended. No hepatosplenomegaly or masses appreciated. Extremities: No clubbing, cyanosis, or edema. Skin: Normal temperature, turgor, and texture; no rash, ulcers, or subcutaneous nodules appreciated. Neurological: Cranial nerves grossly intact. Psychiatric: Normal mood and affect. Alert and oriented to person and place. Confusion resolved and at baseline mentation per spouse. Mild cognitive impairment with short-term memory recall deficit. Objective Labs Result Diagrams: 03/30/20 20:35 04/02/20 06:40 Labs: Laboratory Results - last 24 hr 04/01/20 04/01/20 05:15 05:15 Sodium 139 Potassium 4.1 D Chloride 101 Carbon Dioxide 26 BUN 25 H Creatinine 1.31 H Estimated GFR 52.4 L BUN/Creatinine Ratio 19.1 Glucose 162 H Calcium 9.8 Magnesium 1.3 L Assessment & Plan Assessment & Plan narrative: Winston Houston is an 84-year-old male with a past medical history significant for CAD status post VT and CABG, hypertension, hyperlipidemia, systolic congestive heart failure, chronic kidney disease stage 3, diabetes mellitus type 2, insulin using, and trigeminal neuralgia who presented to the ED via EMS due to confusion. 1. Metabolic encephalopathy, secondary to gabapentin toxicity, present on admission. Resolved. -Patient takes gabapentin for trigeminal neuralgia 600 mg 3 times daily and the patient endorses taking multiple additional doses over the last 2 days to manage pain in addition to acetaminophen with codeine. Patient developed confusion and disorientation. -No evidence of infection, hypoglycemia or other metabolic abnormalities other than hyperkalemia. No focal neurological deficits or lateralizing symptoms.? -Based on renal dosing for patient's current renal function he should be taking 200 to 700 mg twice daily. Continue gabapentin at decreased dose of 300 mg 3 times daily to avoid renal injury and abrupt withdrawal. -Patient currently alert oriented to person and place and at baseline mentation per spouse. 2. Acute hyperkalemia, present on admission. Resolved. -Secondary to decreased renal clearance of spironolactone and losartan due to excessive gabapentin use in setting of solitary kidney. No evidence of renal tubular acidosis type 4. -Initial potassium 6.2 on admission. Potassium level improved with treatment including kayexalate 30 g x1 and furosdemide 40 mg IV x1. Held spironolactone and losartan. Restarted losartan yesterday and lowered dose to home dose of 50 mg daily (medication reconciliation incorrect and received losartan 100 mg yesterday). Plan to restart spironolactone at half home dose today 12.5 mg daily and continue monitoring potassium level closely. 3. Chronic kidney disease stage 3, chronic, present on admission. Stable -Patient was born with a solitary kidney. Recommend nephrology referral as an outpatient per PCP. -Initial creatinine 1.27 and stable. Baseline creatinine is variable and appears to be 1.2-1.5. -Avoid nephrotoxic agents and renally dose medications. Continue home losartan 50 mg daily (medication reconciliation incorrect and received losartan 100 mg yesterday). -Continue to monitor creatinine daily. 4. Systolic heart failure with reduced ejection fraction, chronic, present on admission. Stable. -Does not represent CHF exacerbation. Patient denies shortness of breath or weight gain. Patient does have chronic non-productive cough x2 years possibly related to CHF versus other etiology and had mild peripheral edema on admission likely related to excessive gabapentin use and resolved with diuresis for treatment of hyperkalemia. -Previous echocardiogram 01/2018 demonstrated mildly enlarged left ventricle with moderately reduced function (EF 35-40%), moderate global hypokinesis with akinesis of the mid to apical septum, grossly, normal right ventricular size and function, no significant valvular abnormalities. -Received furosemide 40 mg IV x1 to treat hyperkalemia. ? -Continue to monitor strict I&O's and daily weights. Net - 1.1L. -Consider repeat echocardiogram and cardiology follow-up outpatient as the patient's concerned the patient has not seen a brand ambassador in several years. 5. Hypertension, chronic, present on admission. Stable. -Continue home metoprolol succinate 50 twice daily and losartan 50 mg daily. Initially held spironolactone and will restart at half normal dose 12.5 mg and monitor potassium level. 6. Diabetes mellitus type 2, non-insulin?using, chronic, present on admission. Stable.? -Hemoglobin A1c 7.8% indicative of fair glycemic control.? -Continue metformin 1000 mg twice daily. Nursing verifying home insulin regimen and will restart once obtained. -Continue [facility] blood glucose checks and low-dose correctional scale insulin. -Continue heart healthy/carbohydrate consistent diet.? 7. Hyperlipidemia, chronic, present on admission. Stable -Continue home atorvastatin 40 mg daily. Code status:? Full code patient designates his to be surrogate decision maker.?? VTE prophylaxis:? SQ Heparin, SCDs Disposition: Patient will likely discharge tomorrow if renal function stable and hyperkalemia resolved with restarting half dose spironolactone. Quality VTE Deep Vein Thrombosis/Pulmonary Embolism Present on Admission: No
--- NOTE | 2020-04-01 13:58 | OT.IP.TRT ---
Current Diagnoses Altered mental status, unspecified (03/31/20) Occupational Therapy Treatment Note M2 OT-IP Current Condition Start: 03/31/20 17:32 Freq: Status: Active Protocol: Document 03/31/20 15:57 [facility] (Rec: 03/31/20 18:13 [facility] [id number]) Occupational Therapy Current Condition Current Condition Evaluation Date 03/31/20 Treatment Diagnosis Toxic encephalopathy, altered mental status Diagnosis Onset Date 03/30/20 M3 OT- IP Subjective and Pain Start: 03/31/20 17:32 Freq: Status: Active Protocol: Document 04/01/20 13:11 [facility] (Rec: 04/01/20 15:15 [facility] [id number]) OT- Subjective Occupational Therapy Visit Type Type Treatment Note Visit Start Time 13:11 Visit Stop Time 13:58 Total Visit Minutes 47 Occupational Therapy Visit Comments Patient Comments After 's encouragement , pt agreed to take a shower. Patient/Caregiver Goals To go home. OT Pain Assessment Pain When Pain Assessed At Rest Pain Present Pain Present Denied Pain M4 OT- IP ADL's Start: 03/31/20 17:32 Freq: Status: Active Protocol: Document 04/01/20 13:11 [facility] (Rec: 04/01/20 15:15 [facility] [id number]) OT [id number] Comments OT Self-Feeding Comments Pt needing constant cues from his to eat. OT ADL-Grooming General Evaluation Grooming Ability Standby Assistance Comments OT Grooming Comments VC to complete tasks but today able to brush his hand and wash his face and hands. OT ADL-Dressing General Eval Lower Body Dressing Ability Moderate Assistance Areas Needing Assistance Underpants/Brief,Pants/Shorts Comments OT Dressing Comments Pt having difficulty to reach his feet therefore needing assist to silvia his socks and get brief over his feet. Pt's aware that she will have to proved more assist for pt in addition to supervision to help sequence through tasks. OT ADL-Toileting General Evaluation Toileting Ability Standby Assistance OT ADL-Bathing Bathing Type Bathing Type Shower General Evaluation Bathing Ability Moderate Assistance Areas Needing Assistance Wash/Dry Back,Wash/Dry Lower Extremities Comments OT Bathing Comments Pt needing use of grab bar for balance while standing. Pt's requesting pt have home health bath aid, case management notified of her request. M5 OT- IP IADL's Start: 03/31/20 17:32 Freq: Status: Active Protocol: Document 03/31/20 15:57 [facility] (Rec: 03/31/20 18:13 [facility] [id number]) OT-Instrumental Activities of Daily Living Home Safety Awareness Awareness of Need for Assistance at Home Decreased Awareness Ability to Problem Solve Emergency Unable to Problem Solve Situations Home Safety Comments At this time pt is confused, decreased initiation, and problem solving and if going home will need his to assist for all needs to help sequence through tasks of ADl' s and mobility. Medication Management Medication Management Caregiver Administers Money Management Money Management Caregiver Provides Assistance Meal Preparation Meal Preparation Caregiver Provides Assist Beet Topper Beet Topper Caregiver Provides Assist Driving Driving Caregiver Provides Assist M6 OT- IP Functional Cognition Start: 03/31/20 17:32 Freq: Status: Active Protocol: Document 04/01/20 13:11 [facility] (Rec: 04/01/20 15:15 [facility] [id number]) Cognitive Factors Limiting Selfcare Function Cognitive Ability Level of Alertness Alert,Confusional State Patient Orientation Name Attention Span Ability Capable of Focused Attention, Capable of Sustained Attention Ability to Follow Commands Able to Follow One Step Commands with Increased Time, Able to Follow One Step Commands with Repetition Memory Description Short Term Impaired,Working Impaired Safety Awareness Underestimates Need for Assistance Problem Solving Ability Unable to Identify Errors, Needs Assist to Identify Solutions Cognitive Comments Cognitive Assessment Comments Pt a bit clearer today and able to perform a shower but still needing cues to help complete through the task. Initially pt just washing his body and arms and then turned off the water. Pt needing cues to wash his face, legs, and pericare needs. Pt refused to wash his hair so pt's ended up to assist pt . M7 OT- IP Mobility and Balance Start: 03/31/20 17:32 Freq: Status: Active Protocol: Document 04/01/20 13:11 [facility] (Rec: 04/01/20 15:15 [facility] [id number]) OT-Transfer Assessment Sit to and From Stand Sit to and from Stand Standby Assistance,Minimal Assistance,Moderate Assistance Transfers Transfer Ability Standby Assistance,Contact Guard Assistance Technique Transfer Destination Chair,Shower Stall,Toilet Devices Transfer Assistive Devices Gait Belt,Front Wheeled Walker Comments Mobility Comments Pt still use of momentum to stand at times and needing from SBA to MODA pending if pt has anything to pull up on to stand or if sitting on a higher surface. OT- Gait Assessment Comments Gait Ability Comments CGA with FWW. Pt trying to take some steps without the FWW and needing TC. OT- Balance Assessment Sitting Balance and Reactions Static Sitting Balance Ability Normal Dynamic Sitting Balance Ability Good Standing Balance and Reactions Static Standing Balance Ability Fair M8 OT- IP Objective Assessments Start: 03/31/20 17:32 Freq: Status: Active Protocol: Document 03/31/20 15:57 [facility] (Rec: 03/31/20 18:13 [facility] [id number]) OT Strength Comments Strength Comments Pt having difficulty to follow directions, BUE strength at least 4-/5 throughout. OT-Muscle Tone Assessment Muscle Tone WNL Yes M9 OT- IP Assessment and Plan Start: 03/31/20 17:32 Freq: Status: Active Protocol: Document 04/01/20 13:11 [facility] (Rec: 04/01/20 15:15 [facility] [id number]) OT Summary Assessment and Plan Potential Rehabilitation Potential Good Analytic Complexity at Evaluation Low Summary OT Impairments Balance,Functional Cognition, Functional Mobility,Self- Feeding,Grooming,Dressing, Toileting,Bathing,Toilet Transfers,Shower Transfers, Activity Tolerance Progress Towards Goals Slow Progress due to Cognition Assessment Summary Pt doing better with following directions and initiation of tasks however still needing TC for cues versus MAXA for cues yesterday for ADL's. Pt 's aware will have to provide increased assistance now and supervision for all safety and sequencing through tasks. Goals Grooming Goal Independent Dressing Goal Independent Toileting Goal Independent Bathing Goal Independent Toilet Transfer Goal Independent Shower Transfer Goal Independent Patient/Caregiver Education Goal Caregiver Independent Assisting Patient Days to Meet Goals 15 Frequency of Treatment Frequency Of Treatment Once a Day Treatment Plan OT Treatment Plan ADL Training,Functional Cognition Training,Functional Mobility,Patient/Family Education,Discharge Planning Other Treatment Recommendations and Next LB dressing equipment training Treatment Focus /SLUMS Discharge Recommendations OT Discharge Recommendations Home with 24/7 Assist,Home Health,SNF Rehab Transportation Needs at Discharge Private Vehicle
[2020-04-01] MEDS: GABAPENTIN 300 MG CAPSULE PO ×2 (14:07→21:48)
[2020-04-01] MEDS: SPIRONOLACTONE 25 MG TABLET 12.5 MG PO (14:07)
[2020-04-01] MEDS: LOSARTAN 50 MG TABLET PO (14:08)
--- NOTE | 2020-04-01 16:40 | PC.NURSE ---
Evening shift: Report received, care assumed 1530. Pt sitting up in chair. A&Ox4. VSS. No c/o pain. Insulin and Metformin administered pre-dinner.
[2020-04-01] MEDS: TAMSULOSIN 0.4 MG CAPSULE PO (21:49)
[2020-04-01] MEDS: ATORVASTATIN 20 MG TABLET 40 MG PO (21:49)
[2020-04-02 02:00] VITALS: BP 144/84; PULSE 82; RESP 18; TEMP 36.3; O2SAT 94
[2020-04-02 06:14] VITALS: BP 141/76; PULSE 77; RESP 18; TEMP 36.3; O2SAT 95
[2020-04-02 06:59] LABS: BUN Creatinine Ratio 19.5 (6-22); Blood Urea Nitrogen 29 mg/dL (9-20); Carbon Dioxide 28 mmol/L (22-32); Chloride 103 mmol/L (98-107); Estimated Glomerular Filt Rate 45.2 mL/min (>60); Glucose 162 mg/dL (80-110); HEMOLYSIS < 15 (0-50); Magnesium 1.8 mg/dL (1.6-2.3); Sodium 138 mmol/L (137-145)
[2020-04-02 08:00] VITALS: BP 149/78; PULSE 79; RESP 16; TEMP 36.6; O2SAT 92
[2020-04-02] MEDS: INSULIN ASPART 100 UNIT/ML INSULN PEN SUBCUT (09:48)
[2020-04-02] MEDS: GABAPENTIN 300 MG CAPSULE PO ×2 (09:50→13:34)
[2020-04-02] MEDS: CLOPIDOGREL 75 MG TABLET PO (09:50)
[2020-04-02] MEDS: PANTOPRAZOLE 40 MG TABLET PO (09:51)
[2020-04-02] MEDS: METFORMIN HCL 500 MG TABLET 1000 MG PO (09:51)
[2020-04-02] MEDS: MAGNESIUM OXIDE 400 MG TABLET PO (09:51)
[2020-04-02] MEDS: METOPROLOL ER 50 MG TABLET PO (09:51)
[2020-04-02] MEDS: LOSARTAN 50 MG TABLET PO (09:51)
[2020-04-02] MEDS: HEPARIN 5,000 UNIT/ML VIAL 5000 UNIT SUBCUT (09:51)
--- NOTE | 2020-04-02 11:20 | PT.IPTN ---
Current Diagnoses Hyperkalemia (03/31/20) Chronic kidney disease, unspecified (03/31/20) Altered mental status, unspecified (03/31/20) Physical Therapy Treatment Note M2 PT-IP Current Condition Start: 03/31/20 15:52 Freq: NEEDED Status: Active Protocol: Document 03/31/20 14:13 [facility] (Rec: 03/31/20 16:11 [facility] [id number]) Physical Therapy Current Condition Current Condition Evaluation Date 03/31/20 Treatment Diagnosis toxic encephalopathy; difficulty in walking Onset Date 03/30/20 Precautions Other Precautions Falls M3 PT-IP Subjective Start: 03/31/20 15:52 Freq: NEEDED Status: Active Protocol: Document 04/02/20 11:20 AW (Rec: 04/02/20 13:49 AW [id number]) Subjective Physical Therapy Visit Type Type Treatment Note Visit Start Time 10:48 Visit Stop Time 11:17 Total Visit Minutes 29 Notes Pt's present throughout treatment Physical Therapy Visit Comments Patient Comments Pt is begrudgingly willing to participate with PT Patient Goals To return home with his to assist him. Therapy Pain Assessment Pain When Pain Assessed At Rest Pain Present Pain Present Denied Pain M4 PT-IP Mobility and Gait Start: 03/31/20 15:52 Freq: NEEDED Status: Active Protocol: Document 04/02/20 11:20 AW (Rec: 04/02/20 13:49 AW [id number]) PT-Bed Mobility Assessment Supine to Sit Supine to Sit Standby Assistance PT-Transfer Assessment Sit to and From Stand Sit to and from Stand Standby Assistance,Use of Upper Extremities Equipment Transfer Assistive Device Gait Belt,Front Wheeled Walker Transfers Transfer Destination Chair Transfer Technique pt ambulated using FWW Transfer Ability Level of Assist Standby Assistance,Use of Upper Extremities Comments Mobility Comments With some encouragement, pt completed all bed mobility SBA . He reached for PT's hand at first, but reminded him he will not have such assist at home and he was able to complete supine to sit with extra time. Pt sat EOB and then stood using FWW SBA. He ambulated around the unit with FWW SBA, requiring verbal cues for directions at every turn, demonstrating poor pathfinding skills. On return to the room, pt stood an additional 10 minutes to participate in balance training and then transferred to the chair SBA with cues to use both hands on the chair arms to slow his descent. Pt was positioned in the chair with call light and all needs in reach. Gait Assessment Gait Gait Assistance Required: Standby Assistance,Contact Guard Assist,1 Person Assist Distance (Feet) 220 Able to Maintain Weight Bearing Status Yes During Gait Assistive Devices Assistive Device Gait Belt,Front Wheeled Walker Gait Deviations General Gait Pattern Decreased Stride Length, Decreased Feet Clearance Factors Limiting Gait Function Factors Limiting Gait Function Decreased Activity Tolerance, Decreased Strength,Pain,Poor Balance,Poor Safety Awareness Comments Gait Comments Pt with poor pathfinding skills but required no more than SBA/CGA for 220 feet gait with FWW. Stair Climbing Assessment Comments Stair Climbing Comments Stair training with completed yesterday. PT-Balance Assessment Sitting Balance and Reactions Static Sitting Balance Ability Normal Dynamic Sitting Balance Ability Normal Standing Balance and Reactions Static Standing Balance Ability Good Dynamic Standing Balance Ability Good Device Used FWW M5 PT-IP Objective Assessments Start: 03/31/20 15:52 Freq: NEEDED Status: Active Protocol: Document 03/31/20 14:13 AB (Rec: 03/31/20 16:11 AB [id number]) Orientation Orientation/Cognition Level of Alertness Confusional State Orientation Name Language Function Ability Hard of Hearing Safety Awareness Decreased Safety Awareness Gross Range of Motion Lower Extremity ROM Assessment Within Functional Limits Strength Lower Extremity Strength Hip 4-/5 Knee 4-/5 Muscle Tone Muscle Tone WNL Yes M6 PT-IP Treatment Start: 03/31/20 15:52 Freq: NEEDED Status: Active Protocol: Document 04/02/20 11:20 AW (Rec: 04/02/20 13:49 AW [id number]) Physical Therapy Treatment Education Education Provided Safety M7 PT-IP Assessment and Plan Start: 03/31/20 15:52 Freq: NEEDED Status: Active Protocol: Document 04/02/20 11:20 AW (Rec: 04/02/20 13:49 AW [id number]) PT Summary Assessment and Plan Potential Rehabilitation Potential Good Status of Condition at Evaluation Evolving Summary Impairments Pain,ROM,Strength,Balance, Coordination,Sensation,Tone, Cognition,Bed Mobility, Transfers,Gait,Activity Tolerance Progress Towards Goals Progressing Toward Goals,Slow Progress due to Medical Issues Assessment Summary Pt is more alert and is well- oriented today but still required assist with pathfinding while ambulating on the unit. His has already completed caregiver training and is able to safely provide assist at home. Pt is safe for discharge with assist and HH PT. Goals Bed Mobility Goal Independent Transfer Goal Independent,Front Wheeled Walker Gait Goal Independent,Front Wheel Walker Gait Distance 150 Other Goals ambulation using 4WW 200 ft mod I up/donw 5 steps R rail ascending SBA Days to Meet Goals 5 Frequency of Treatment Frequency Of Treatment Once a Day Treatment Plan Physical Therapy Treatment Plan Bed Mobility Training,Transfer Training,Gait Training, Therapeutic Exercise,Balance Retraining,Post Op Education, Discharge Planning,Hot or Cold Pack,Neuromuscular Re-ed, Coordination Retraining,Manual Therapy Other Recommendations and Next Treatment Le exercises, balance Focus activities, assess gait using 4WW if not safe with fWW. Recommendations To Nursing Amount of Assist Needed 1 Person Assist Discharge Recommendations PT Discharge Recommendations Home with 06/02 Assist,Home Health Transportation Needs at Discharge Private Vehicle,Wheelchair/ Cabulance
--- NOTE | 2020-04-02 11:22 | PM.DS.1 ---
History of Present Illness History of Present Illness Date Patient Seen: 03/30/20 Chief complaint: Altered mental status Narrative: Written by Doron SANTOS: Mr. Winston Houston is an 84-year-old male with a history significant for IN, systolic heart failure, hypertension, hyperlipidemia, chronic kidney disease stage 3, diabetes type 2 and trigeminal neuralgia who presents to the emergency department by EMS with altered mental status. The patient is unable to to provide medical information is as such information stained from the patient's at bedside. Patient had sustained a fall 2 days ago the patient does report that he was in a chair that slipped out from under him landing on the floor and was able to get up by himself without assistance but did strike his head but sustained no loss of consciousness neck or back pain. The patient's states that he was in his normal state health last night and then this morning he did not get up as per his usual morning routine. The patient had multiple episodes of diarrhea stools and was able to get and out of bed without difficulty. She describes him as being confused with poor recall and unable to manage his medications as usual. She acknowledge the patient has had dizziness for what sounds to be weeks but worse over the last 2 days but describes no abnormal gait or facial droop. The patient told his he was taking extra gabapentin because of his left facial pain following his fall and thought nothing of it. At the time of interview the patient denies headaches or visual changes, neck or back pain. He feels he is thinking clearly but cannot recall daytime or events. He denies complaints of chest pain or palpitations. He has had a chronic cough and per the patient's he is recovering from pneumonia. He denies shortness of breath or exertional dyspnea. He reports no abdominal pain, heartburn nausea or vomiting. He has had diarrhea today but no diarrhea stool since approximately 4:00 p.m.. He was born with a single kidney and has no difficulty with urination. The patient is typically independent in ADLs at home. Upon arrival the ER the patient is afebrile with a temperature 97.8?, heart rate of 60, blood pressure 176/83, respirations of 12 saturating 98% on room air. CT of the head is obtained which is unremarkable. On laboratory analysis he has white count of 7.0 with no shift hemoglobin of 11.7, hematocrit 35.4 platelets 229. He has a PT of 12.5, INR 1.1 and PTT of 32. He has a normal sodium but elevated potassium at 6.2. His BUN is 27 and creatinine is 1.29. His liver functions are all within normal limits and ammonia is less than 0.9. His lactic acid 1.7 total CK 122, MB of 3.0 and an index of 2.5. His troponin is negative at less than 0.012. UA reveals a specific gravity of 1.015, 1+ protein and trace ketones but no infection markers. Procalcitonin is negative at less than 0.05 and Urinary drug screen is positive for opiates. In the ER the patient received 2 L of IV fluid and Kayexalate was ordered. Patient is admitted to the medicine team for altered mental status and hyperkalemia. Discharge Providers Provider Date of admission: 03/31/20 16:35 Discharge Date: 04/02/20 Primary care physician: Joseph Mayorga MD Consults: 03/30/20 23:29 Consult to Discharge Planning Routine Comment: 03/31/20 00:27 Consult to Respiratory Therapy Evaluate & Treat Comment: Systolic heart failure, wheezing, cough Physician Instructions: Evaluate and treat 03/31/20 10:54 Consult to Occupational Therapy Evaluate & Treat Comment: Physician Instructions: Evaluate and treat Consult to Physical Therapy Evaluate & Treat Comment: Physician Instructions: Evaluate and Treat 03/31/20 12:08 Consult to Home Health Routine Comment: Yuli THOMAS has accepted the referral Reason For Exam: WILLIAM RN/OT/PT at dc/ Discharge provider: Jesenia Bone DO Summary Hospital Course Discharge Diagnosis: 1. Metabolic encephalopathy, secondary to gabapentin toxicity, present on admission. Resolved. 2. Acute hyperkalemia, present on admission. Resolved. 3. Chronic kidney disease stage 3, chronic, present on admission. Stable 4. Systolic heart failure with reduced ejection fraction, chronic, present on admission. Stable. 5. Hypertension, chronic, present on admission. Stable. 6. Diabetes mellitus type 2, insulin using, chronic, present on admission. Stable. 7. Hyperlipidemia, chronic, present on admission. 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 1. Metabolic encephalopathy, secondary to gabapentin toxicity, present on admission. Resolved. -Patient takes gabapentin for trigeminal neuralgia 600 mg 3 times daily and the patient endorses taking multiple additional doses over the last 2 days to manage pain in addition to acetaminophen with codeine. Patient developed confusion and disorientation. -No evidence of infection, hypoglycemia or other metabolic abnormalities other than hyperkalemia. No focal neurological deficits or lateralizing symptoms. -Based on renal dosing for patient's current renal function he should be taking 200 to 700 mg twice daily. Continued gabapentin at decreased dose of 300 mg 3 times daily to avoid renal injury and abrupt withdrawal and rebound trigeminal neuralgia. -Patient currently alert oriented to person and place and at baseline mentation per spouse. 2. Acute hyperkalemia, present on admission. Resolved. -Secondary to decreased renal clearance of spironolactone and losartan due to excessive gabapentin use in setting of solitary kidney. No evidence of renal tubular acidosis type 4. -Initial potassium 6.2 on admission. Potassium level improved with treatment including kayexalate 30 g x1 and furosdemide 40 mg IV x1. Held spironolactone and losartan. Restarted losartan yesterday and lowered dose to home dose of 50 mg daily (medication reconciliation incorrect and received losartan 100 mg yesterday). Restarted and continued spironolactone at half home dose today 12.5 mg daily. Potassium level now 4.0 and stable. 3. Chronic kidney disease stage 3, chronic, present on admission. Stable -Patient was born with a solitary kidney. Recommend nephrology referral as an outpatient per PCP. -Initial creatinine 1.27 and stable. Baseline creatinine is variable and appears to be 1.2-1.5. Creatinine now 1.49. -Avoided nephrotoxic agents and renally dose medications. Continued home losartan 50 mg daily (medication reconciliation incorrect and received losartan 100 mg yesterday). -Continued to monitor creatinine daily. Recommend repeat BMP to check potassium and renal function in 5 days prior to follow-up with PCP. 4. Systolic heart failure with reduced ejection fraction, chronic, present on admission. Stable. -Does not represent CHF exacerbation. Patient denies shortness of breath or weight gain. Patient does have chronic non-productive cough x2 years possibly related to CHF versus other etiology and had mild peripheral edema on admission likely related to excessive gabapentin use and resolved with diuresis for treatment of hyperkalemia. -Previous echocardiogram 01/2018 demonstrated mildly enlarged left ventricle with moderately reduced function (EF 35-40%), moderate global hypokinesis with akinesis of the mid to apical septum, grossly, normal right ventricular size and function, no significant valvular abnormalities. -Received furosemide 40 mg IV x1 to treat hyperkalemia. -Continued to monitor strict I&O's and daily weights. Net - 1.3 L. -Consider referral to cardiology and repeat echocardiogram per PCP as the patient's concerned the patient has not seen a senior tax analyst in several years. 5. Hypertension, chronic, present on admission. Stable. -Continued home metoprolol succinate 50 twice daily and losartan 50 mg daily. Initially held spironolactone and will restart at half normal dose 12.5 mg and monitor potassium level. 6. Diabetes mellitus type 2, insulin using, chronic, present on admission. Stable. -Hemoglobin A1c 7.8% indicative of fair glycemic control. -Continued metformin 1000 mg twice daily. Confirm that patient takes NPH 31 units twice daily and restarted at time of discharge. -Continued [facility] blood glucose checks and low-dose correctional scale insulin. -Continued heart healthy/carbohydrate consistent diet. 7. Hyperlipidemia, chronic, present on admission. Stable -Continued home atorvastatin 40 mg daily. Exam Vital Signs (past 8 hours): - 04/02/20 06:14 04/02/20 08:00 Temperature 97.3 F L 97.8 F Pulse Rate 77 79 Respiratory Rate 18 16 Blood Pressure 141/76 H 149/78 H Pulse Oximetry 95 92 Oxygen Delivery Method Room Air Oxygen Flow Rate 0 Narrative Exam Narrative: General: Elderly male sitting in bedside chair and in no acute distress, well-developed, well-nourished, appropriately interactive. HEENT: Normocephalic, atraumatic. External ears without defect. Pupils equal, round, and reactive to light. Anicteric sclerae, moist conjunctivae, and no lid lag. Oropharynx free of erythema and cobble stoning with moist mucosa. Neck: Supple with full range of motion. No jugular venous distension. No lymphadenopathy or thyromegaly. Patient reports nodule and neck which was nonpalpable. Cardiovascular: Regular rate and rhythm without murmurs, rubs, or gallops appreciated Pulmonary: Clear to auscultation bilaterally with bibasilar crackles. No wheezes, or rhonchi. Normal respiratory effort with no use of accessory muscles. Abdomen: Soft, bowel sounds present, nontender, nondistended. No hepatosplenomegaly or masses appreciated. Extremities: No clubbing, cyanosis, or edema. Skin: Normal temperature, turgor, and texture; no rash, ulcers, or subcutaneous nodules appreciated. Neurological: Cranial nerves grossly intact. Psychiatric: Normal mood and affect. Alert and oriented to person and place. Confusion resolved and at baseline mentation per spouse. Mild cognitive impairment with short-term memory recall deficit. Objective Labs Result Diagrams: 03/30/20 20:35 04/02/20 06:40 Labs: Laboratory Results - last 24 hr 04/02/20 06:40 Sodium 138 Potassium 4.0 Chloride 103 Carbon Dioxide 28 BUN 29 H Creatinine 1.49 H Estimated GFR 45.2 L BUN/Creatinine Ratio 19.5 Glucose 162 H Calcium 9.0 Magnesium 1.8 Discharge Plan Discharge Plan Patient Disposition: Home Health Service Transfer to: [facility] Discharge comment: You are being discharged home with home health for physical therapy, occupational therapy, nursing needs including early childhood educator aide and bath aide, and JEWELSMITH. You took too much gabapentin switch irritated your kidneys and caused medications that you are normally on to stay in your system longer and elevate your potassium level. Your gabapentin has been lowered from 600 mg to 300 mg 3 times daily. Your spironolactone has been lowered from 25 mg to 12.5 mg daily. Repeat lab work was ordered to be performed the day prior to your appointment with Dr. Mayorga. Please follow-up with your primary care physician, Dr. Mayorga, at your scheduled appointment regarding your hospitalization and follow-up lab work. Recommend referral to nephrology and cardiology. Discharge orders & Medications Prescriptions: Continued acetaminophen-codeine 300-30 mg tablet 1 tab PO Q6H PRN (Reason: Pain (Scale Score 1-3)) RF: 0 Novolin N Flexpen 100 unit/mL (3 mL) Insulin Pen 31 unit SUBCUT BID RF: 0 albuterol sulfate 90 mcg/actuation Hfa Aerosol Inhaler 1 puff INHALATION Q4H PRN (Reason: Shortness Of Breath) RF: 0 allopurinol 100 mg tablet 200 mg PO DAILY RF: 0 atorvastatin 40 mg tablet 40 mg PO DAILY RF: 0 clopidogrel 75 mg tablet 75 mg PO DAILY RF: 0 fluticasone propionate 50 mcg/actuation spray,suspension 50 mcg Intranasal BID RF: 0 losartan 50 mg tablet 50 mg PO DAILY RF: 0 pantoprazole 40 mg tablet,delayed release (DR/EC) 40 mg PO DAILY RF: 0 tamsulosin 0.4 mg capsule 0.4 mg PO BEDTIME RF: 0 metoprolol succinate 50 mg tablet extended release 24 hr 50 mg PO DAILY RF: 0 metformin 500 mg tablet 1,000 mg PO BID RF: 0 Changed gabapentin 600 mg tablet 300 mg PO TID Qty: 0 RF: 0 spironolactone 25 mg tablet 12.5 mg PO DAILY Qty: 0 RF: 0 Other Ambulatory Orders: Basic Metabolic Panel (Stat) Timeframe: 5 Days Facility: [facility] - Location: Laboratory Ordered By: Jesenia Bone Follow up/Referrals: Joseph Mayorga MD [Primary Care Provider] - 04/08/20 1:20 pm (appt:04/08 @ 1:20 check in for appointment with dr mayorga in the [facility] (no [place] available in that time frame)) Diet/Activity/Treatments Diet: Carb-consistent/Diabetic, Low-fat, Low-sodium and Low-cholesterol Activity: Activity as tolerated with walker Visit Report/Discharge Packet Instructions: DI for Heart Failure, Chronic Kidney Disease, DI for Trigeminal Neuralgia, Gabapentin, Spironolactone (By mouth) Visit Report Forms: Patient Portal/API, Stroke Signs & Symptoms Discharge Data Primary Care Provider: Joseph Mayorga Quality VTE Deep Vein Thrombosis/Pulmonary Embolism Present on Admission: No
[2020-04-02 11:40] VITALS: BP 148/79; PULSE 70; RESP 18; TEMP 36.3; O2SAT 96
--- NOTE | 2020-04-02 13:44 | PC.NURSE ---
Discharge instructions and home care handouts reviewed extensively with patient and his . THey state understanding and have no further questions or concerns at this time. Patient plans to get his blood drawn (lab ordered) on 04/07/20 and then follow up with PCP Dr. Mae the following day on 04/08/20. Dr. Bone is recommending patient to obtain referalls for nephrology and cardiology follow up through his PCP. Home medications including changes to spironolactone and gabapentin reviewed with patient and his , they state understanding and have no further questions or concerns. IV dc'd intact. Patient escorted out with all belongings via wheelchair by FLOORING PROFESSIONAL to be discharged to home with his with Home health services as arranged by CM.
== END 2020-04-02 13:49 | disposition home health service (06) | DRG 917 ==
LOC: ED 21:11 → AC 22:39
PROVIDERS: Internal Medicine; Admitting Provider Nurse Practitioner Adult Health; Emergency Provider Emergency Medicine; PCP Internal Medicine; Referring Provider Emergency Medicine; Visit Provider Nurse Practitioner Adult Health
DX: T42.6X1A Poisoning by other antiepileptic and sedative-hypnotic drugs, accidental (unintentional), initial encounter (principal); G92 Toxic encephalopathy; I13.0 Hypertensive heart and chronic kidney disease with heart failure and stage 1 through stage 4 chronic kidney disease, or unspecified chronic kidney disease; I50.22 Chronic systolic (congestive) heart failure; G50.0 Trigeminal neuralgia; N18.3 Chronic kidney disease, stage 3 (moderate); E11.42 Type 2 diabetes mellitus with diabetic polyneuropathy; E11.22 Type 2 diabetes mellitus with diabetic chronic kidney disease; E87.5 Hyperkalemia; E78.5 Hyperlipidemia, unspecified; I25.10 Atherosclerotic heart disease of native coronary artery without angina pectoris; W07.XXXA Fall from chair, initial encounter; I44.7 Left bundle-branch block, unspecified; M1A.9XX0 Chronic gout, unspecified, without tophus (tophi); Z79.84 Long term (current) use of oral hypoglycemic drugs; Z95.1 Presence of aortocoronary bypass graft
CPT/HCPCS: 36415; 70450; 80048; 80053; 80305; 80320; 81001; 82140; 82550; 82553; 82962; 83036; 83605; 83690; 83735; 84145; 84484; 85025; 85610; 85730; 87040; 87635; 93005; 93010; 94760; 94762; 96360; 96361; 97112; 97116; 97162; 97165; 97530; 97533; 97535; 99284; G0378; A9270; J1644; J1940

== ENCOUNTER → 2020-04-07 12:48 | Outpatient (CLI) | payer MEDICARE, OTHER, SELFPAY ==
[2020-03-30 22:41] VITALS: BMI 27.9
[2020-04-07 13:19] LABS: BUN Creatinine Ratio 21.5 (6-22); Blood Urea Nitrogen 29 mg/dL (9-20); Calcium 9.3 mg/dL (8.4-10.2); Carbon Dioxide 26 mmol/L (22-32); Chloride 106 mmol/L (98-107); Estimated Glomerular Filt Rate 50.6 mL/min (>60); Glucose 142 mg/dL (80-110); HEMOLYSIS < 15 (0-50); Potassium 4.2 mmol/L (3.4-5.1); Sodium 142 mmol/L (137-145)
== END ==
PROVIDERS: PCP Internal Medicine; Referring Provider Internal Medicine; Visit Provider Internal Medicine
DX: E87.5 Hyperkalemia (principal); N18.9 Chronic kidney disease, unspecified
CPT/HCPCS: 36415; 80048

== ENCOUNTER → 2020-05-19 19:51 | Outpatient (ROUT) | payer MEDICARE, OTHER, SELFPAY ==
[2020-03-30 22:41] VITALS: BMI 27.9
[2020-05-19 20:05] LABS: Add Manual Diff / Slide Review NO; Basophils Absolute Auto 0 /uL (0-100); Basophils Percent Auto 0.4 % (0-2); Eosinophils Absolute Auto 200 /uL (0-450); Eosinophils Percent Auto 2.4 % (2-4); Hematocrit 40.1 % (41-53); Hemoglobin 12.9 g/dL (13.5-17.5); Lymphocytes Absolute Auto 1900 /uL (1100-4500); Mean Corpuscular Hemoglobin 31.4 PG (26-34); Monocytes Absolute Auto 500 /uL (0-900); Monocytes Percent Auto 6.4 % (3-14); Neutrophils Absolute Auto 4600 /uL (1500-7000); Neutrophils Percent Auto 63.8 % (50-75); Platelet Count 214 X10^3/uL (150-400); Red Blood Cell Count 4.09 X10^6/uL (4.5-5.9); Red Cell Distribution Width 13.4 % (11.6-14.8); White Blood Cell Count 7.2 X10^3/uL (4.5-11.0)
[2020-05-19 20:33] LABS: Alanine Aminotransferase 19 IU/L (<50); Albumin 4.4 g/dL (3.5-5.0); Albumin Globulin Ratio 1.3 (1.0-2.8); Alkaline Phosphatase 68 U/L (38-126); Aspartate Aminotransferase 26 IU/L (17-59); BUN Creatinine Ratio 21.9 (6-22); Bilirubin Total 0.7 mg/dL (0.2-1.3); Blood Urea Nitrogen 25 mg/dL (9-20); Calcium 9.4 mg/dL (8.4-10.2); Carbon Dioxide 26 mmol/L (22-32); Chloride 104 mmol/L (98-107); Estimated Glomerular Filt Rate > 60.0 mL/min (>60); Globulin 3.3 g/dL (1.7-4.1); Glucose 111 mg/dL (80-110); HEMOLYSIS < 15 (0-50); Magnesium 1.4 mg/dL (1.6-2.3); Potassium 4.7 mmol/L (3.4-5.1); Sodium 141 mmol/L (137-145); Total Protein 7.7 g/dL (6.3-8.2)
[2020-05-19 20:34] LABS: Hemoglobin A1C% w Est Avg Glu 7.1 % (4.0-6.0)
[2020-05-19 20:40] LABS: NT-proBNP (BNP-Adult 18+) 614 pg/mL (<450)
== END ==
PROVIDERS: PCP Internal Medicine; Visit Provider Physician Assistant
DX: R42 Dizziness and giddiness (principal); I10 Essential (primary) hypertension; E11.9 Type 2 diabetes mellitus without complications; E04.1 Nontoxic single thyroid nodule; I50.9 Heart failure, unspecified; N18.9 Chronic kidney disease, unspecified
CPT/HCPCS: 80053; 83036; 83735; 83880; 85025

== ENCOUNTER → 2020-06-24 14:14 | Outpatient (CLI) | payer MEDICARE, OTHER, SELFPAY ==
[2020-03-30 22:41] VITALS: BMI 27.9
--- NOTE | 2020-06-24 | DI.MRI.S_ITS ---
PROCEDURE: MR HEAD/BRAIN WO/W CON INDICATIONS: Trigeminal neuralgia TECHNIQUE: Noncontrast axial T1 spin echo, axial T2 fast spin echo, sagittal and axial FLAIR, coronal T2 fast spin echo, axial gradient echo, axial diffusion and ADC through the brain. After the administration of contrast, axial and coronal T1 spin echo with fat saturation through the brain. COMPARISON: None. FINDINGS: Image quality: Excellent. CSF spaces: Basal cisterns are patent. No extra-axial fluid collections. Ventricles are normal in size and shape. Brain: In this patient with this given history, scrutiny is given to the trigeminal nerves. The trigeminal nerves demonstrate a normal appearance, without masses or abdominal enhancement seen along their courses, including within the Meckel's caves. No midline shift. No intracranial bleeds or masses. No abnormal intracranial enhancement. There is cerebral volume loss for age. There is periventricular white matter chronic small vessel ischemic change. The brainstem appears normal. Diffusion-weighted images demonstrate no acute ischemic insults. No chronic ischemic insults. Normal intravascular flow voids are present. Note is made of a cavum septum pellucidum. When discovered in isolation, this is considered to be a developmental variant of no clinical consequence. Skull and face: Calvarial marrow is normal in signal. Orbits appear normal. Note is made of bilateral lens replacements. Sinuses: Moderate mucosal thickening is seen with right maxillary sinus. Minimal mucosal thickening is seen elsewhere within the paranasal sinuses. Moderate mastoid air cell fluid can be seen, left worse than right. IMPRESSION: No imaging explanation is found for this patient's presenting symptoms. No significant trigeminal nerve or Meckel's cave abnormality can be seen. No masses or abnormal enhancement can be seen. Paranasal sinus disease is seen, which is most prominent involving the right maxillary sinus. Dictated by: Yan Marin M.D. on 06/24/2020 at 16:18 Approved by: Yan Marin M.D. on 06/24/2020 at 16:20
== END ==
PROVIDERS: PCP Internal Medicine; Referring Provider Internal Medicine; Visit Provider Internal Medicine
DX: G50.0 Trigeminal neuralgia (principal); J32.4 Chronic pansinusitis
CPT/HCPCS: 70553; A9579

== ENCOUNTER → 2020-07-27 14:50 | Outpatient (CLI) | payer MEDICARE, OTHER, SELFPAY ==
[2020-03-30 22:41] VITALS: BMI 27.9
[2020-07-27 16:30] LABS: BUN Creatinine Ratio 25.4 (6-22); Blood Urea Nitrogen 35 mg/dL (9-20); Calcium 9.5 mg/dL (8.4-10.2); Carbon Dioxide 28 mmol/L (22-32); Chloride 106 mmol/L (98-107); Cholesterol 78 mg/dL (140-199); Estimated Glomerular Filt Rate 49.2 mL/min (>60); Glucose 134 mg/dL (80-110); HDL Cholesterol 28 mg/dL (40-60); HEMOLYSIS 18 (0-50); LDL Cholesterol Calculated 28 mg/dL (<100); Sodium 140 mmol/L (137-145); Triglycerides 108 mg/dL (35-150)
[2020-07-27 16:39] LABS: NT-proBNP (BNP-Adult 18+) 328 pg/mL (<450)
[2020-07-27 16:42] LABS: Potassium 5.5 mmol/L (3.4-5.1)
== END ==
PROVIDERS: PCP Internal Medicine; Referring Provider Internal Medicine Cardiovascular Disease; Visit Provider Internal Medicine Cardiovascular Disease
DX: I50.22 Chronic systolic (congestive) heart failure (principal); E78.5 Hyperlipidemia, unspecified
CPT/HCPCS: 36415; 80048; 80061; 83880

== ENCOUNTER → 2020-08-19 13:40 | Outpatient (CLI) | payer MEDICARE, OTHER, SELFPAY ==
[2020-03-30 22:41] VITALS: BMI 27.9
--- NOTE | 2020-08-19 | DI.ECHO.S_ITS ---
[facility]---------+ [facility] +---------+ : : [address] : [place] : : : : [id number] : : : : Phone: [phone] Echocardiogram Report + + :Name: MADDI STERLING Study Date: 08/19/2020 Height: 71 in : :[facility] ReadingLocation: Weight: 195 lb : : Gender: Male BSA: 2.1 m2 : :: 1935 Age: 85 yrs BP: 139/79 mmHg: :Reason For Study: COUGH, INTERSTITIAL PULMONARY DISEASE : :Ordering Physician: ROLAND, : :PERRI Performed By: Edwige Palencia : :Referring: PERRI WATKINS : + + Interpretation Summary The study quality was technically difficult. The left ventricle is normal in size. Left ventricular ejection fraction is estimated to be 30 +/- 5%. Akinetic mid to distal septum along with moderate global hypokinesis. Overall each and every LV wall was not well seen. There is a significant dyssynchrony due to conduction abnormalities. No significant change from the previous study. In my view, no significant change in LV ejection fraction as well. MV E/A: 0.40 Med Peak E' Mango: 3.9 cm/sec E/E' med: 10.8 The right ventricle is normal in size and function. No significant valvular pathology seen. The IVC is of normal diameter and collapses greater than 50% with a sniff. This suggests a low right atrial pressure of 3 mm Hg. Procedure: A two-dimensional transthoracic echocardiogram with color flow and Doppler was performed. The study quality was technically difficult. Comparison is made with the echocardiogram of 02/08/2018. The study quality was technically limited. A contrast injection of Definity was performed to improve assessment of LV function. Contrast was injected into an intravenous site in the left arm. The heart rate ranged between 62-87 bpm during the study. The patient had a bundle branch block rhythm during the exam. Left Ventricle: The left ventricle is normal in size. Proximal septal thickening is noted. There is no thrombus. Left ventricular ejection fraction is estimated to be 30 +/- 5%. Akinetic mid to distal septum, moderate global hypokinesis. Overall each and every LV wall was not well seen. There is a significant dyssynchrony due to conduction abnormalities. No significant change from the previous study. In my view, no significant change in LV ejection fraction as well. MV E/A: 0.40 Med Peak E' Mango: 3.9 cm/sec E/E' med: 10.8. Right Ventricle: The right ventricle is normal in size and function. Atria: The left atrium is mildly dilated. The left atrium has mildly decreased in size since the prior echo exam. Right atrial size is normal. There is no Doppler evidence for an interatrial shunt. Mitral Valve: The mitral valve leaflets appear mildly thickened, but open well. The mitral valve leaflets are slightly calcified. There is trace mitral regurgitation. Compared to the prior echo study, there has been a decrease in the severity of mitral regurgitation. Aortic Valve: The aortic valve is trileaflet. There is moderate aortic valve sclerosis. There is discrete nodular thickening of the right coronary cusp. There is mildly reduced leaflet mobility. There is no hemodynamically significant valvular aortic stenosis. There is trace aortic regurgitation. Compared to the prior echo study, there has been a decrease in the severity of aortic regurgitation. Tricuspid Valve: The tricuspid valve is normal. There is trace tricuspid regurgitation. Pulmonary artery pressures cannot be estimated because of the lack of a measurable TR jet velocity but the IVC suggests a CVP of around 3 mmHg. Pulmonic Valve: The pulmonic valve is not well seen, but is grossly normal. There is no pulmonic valvular regurgitation. Great Vessels: The aortic root is normal size. The ascending aorta could not be visualized. The IVC is of normal diameter and collapses greater than 50% with a sniff. This suggests a low right atrial pressure of 3 mm Hg. Pericardium/ Pleura There is no pericardial effusion. There is no pleural effusion. MMode/2D Measurements & Calculations LVIDd: 5.1 cm LVOT diam: 2.0 cm LVIDs: 4.1 cm Ao root diam: 3.7 cm FS: 19.1 % EPSS: 1.4 cm IVSd: 1.1 cm LVPWd: 0.82 cm LV sarabia. diameter/BSA (cm/m^2): 2.4 LV sys. diameter/BSA (cm/m^2): 2.0 LA A2 area: 20.3 cm2 RA long axis: 4.4 cm LA A4 area: 14.2 cm2 RA area: 12.8 cm2 LA length (vol): 4.7 cm RA vol: 31.5 ml LA vol: 52.4 ml RA : 15.1 ml/m2 LA vol index: 25.1 ml/m2 IVC diam: 1.1 cm RVD1 (basal): 3.0 cm TAPSE: 1.8 cm Doppler Measurements & Calculations Ao V2 max: 133.4 cm/sec LVOT Max Mango: 65.8 cm/sec Ao V2 mean: 104.7 cm/sec LV V1 max P.7 mmHg Ao max P.1 mmHg LV V1 VTI: 10.0 cm Ao mean P.7 mmHg SANDEE(I,D): 1.3 cm2 Ao V2 VTI: 24.7 cm SANDEE(V,D): 1.6 cm2 sev ratio: 0.40 SANDEE indexed to BSA (cm^2/m^2): 0.61 MV E max mango: 41.9 cm/sec TR max mango: 250.1 cm/sec MV A max mango: 103.9 cm/sec TR max P.1 mmHg MV E/A: 0.40 PA V2 max: 57.4 cm/sec Med Peak E' Mango: 3.9 cm/sec PA V2 mean: 36.4 cm/sec E/E' med: 10.8 PA mean P.61 mmHg Lat Peak E' Mango: 8.7 cm/sec PA pr(Accel): 46.5 mmHg E/E' lat: 4.8 E/e' average: 7.8 MV dec time: 0.25 sec SV(LVOT): 31.4 ml Reading Physician:01:08 PM
--- NOTE | 2020-08-19 13:49 | DI.CT.S_ITS ---
PROCEDURE: CT CHEST HIGH RESOLUTION INDICATIONS: Cough Interstitial pulmonary disease TECHNIQUE: Noncontrast 1.0 and 5.0 mm thick contiguous axial sections from the pulmonary apex to the posterior costophrenic angles, with 7 mm thick coronal and sagittal MIP reformats. 1 mm thick dynamic expiratory images acquired through the upper, mid, and lower lungs. 1.0 mm thick axial sections acquired from the jaime to the posterior costophrenic angles in the prone end-inspiration position. For radiation dose reduction, the following was used: automated exposure control, adjustment of mA and/or kV according to patient size. COMPARISON: None. FINDINGS: Image quality: Excellent. Lungs: A small amount of residual peribronchial thickening and irregular interstitial subpleural thickening in the lateral left upper lobe is redemonstrated. There has been interval decrease in the left lower lobe consolidative changes with residual linear opacities, traction bronchiectasis posteriorly, and rounded atelectatic changes along the pleural surface posteriorly. Platelike atelectasis is present anteriorly in the lingula. There is a stable calcified juxta fissural nodule in the posterior right upper lobe and coarse coarse calcifications in the left lower lobe. Tree-in-bud nodularity is present laterally in the right upper lobe, new since the prior study. Minor fibrotic changes are present medially in the right lower lobe at the lung base. No pleural effusions. The airway is patent. Pleura: No pleural effusions or pneumothorax. Trace amount of pleural calcification posteriorly in the left lower lobe is nonspecific. Mediastinum: Slightly enlarged heart with coronary calcification and post CABG change. There is slight deviation of the mediastinal structures to the left. There are several calcified subcarinal and pre carinal lymph nodes. Few right left hilar lymph nodes are also seen. No pericardial effusion. Thoracic aorta and central pulmonary arteries are normal in size. Moderate aortic arch calcification. Esophagus is normal in caliber. Bones and chest wall: Median sternotomy changes. Right lower pole thyroid nodule is stable. No suspicious bony lesions. No vertebral body compression fractures. Severe degenerative changes in each shoulder. Abdomen: Surgically absent gallbladder. Granulomas in the spleen. Visualized upper abdominal solid organs and bowel loops appear otherwise normal. IMPRESSION: 1. Continually resolving left lung pneumonia with atelectatic and developing fibrotic changes in the lower left mediastinum. 2. There is a new subtle tree-in-bud nodularity pattern in the right upper lobe suggesting infection, inflammation, or hypersensitivity. 3. Evidence of granulomatous disease in the chest and spleen. Dictated by: Dorcas Rebolledo M.D. on 08/19/2020 at 15:39 Approved by: Dorcas Rebolledo M.D. on 08/19/2020 at 16:12
== END ==
PROVIDERS: PCP Internal Medicine; Referring Provider Internal Medicine; Visit Provider Internal Medicine Cardiovascular Disease
DX: I25.5 Ischemic cardiomyopathy (principal); R05 Cough; J84.9 Interstitial pulmonary disease, unspecified
CPT/HCPCS: 71250; C8929; Q9957

== ENCOUNTER → 2020-09-24 13:18 | Outpatient (CLI) | payer MEDICARE, OTHER, SELFPAY ==
[2020-03-30 22:41] VITALS: BMI 27.9
[2020-09-24 15:11] LABS: BUN Creatinine Ratio 15.8 (6-22); Blood Urea Nitrogen 23 mg/dL (9-20); Calcium 9.7 mg/dL (8.4-10.2); Carbon Dioxide 30 mmol/L (22-32); Chloride 104 mmol/L (98-107); Estimated Glomerular Filt Rate 46.1 mL/min (>60); Glucose 120 mg/dL (80-110); HEMOLYSIS 19 (0-50); Potassium 4.6 mmol/L (3.4-5.1); Sodium 141 mmol/L (137-145)
== END ==
PROVIDERS: PCP Internal Medicine; Referring Provider Internal Medicine Cardiovascular Disease; Visit Provider Internal Medicine Cardiovascular Disease
DX: I10 Essential (primary) hypertension (principal)
CPT/HCPCS: 36415; 80048

== ENCOUNTER → 2020-10-20 09:43 | Outpatient (CLI) | payer MEDICARE, OTHER, SELFPAY ==
[2020-03-30 22:41] VITALS: BMI 27.9
--- NOTE | 2020-10-20 | DI.NM.S_ITS ---
PROCEDURE: NM ALICIA PERF SPECT R&S PHARM Rest and pharmacological stress myocardial perfusion SPECT with gated imaging and ejection fraction RADIOPHARMACEUTICAL: 24.9 mCi Tc-99m tetrafosmin IV at rest and 25.6 mCi Tc-99m tetrafosmin IV at peak effect of pharmacological stress. [id number] was performed. INDICATIONS: ISCHEMIC CARD. TECHNIQUE: Radiopharmaceutical was injected at peak stress test, and also at rest. SPECT images were obtained. SPECT myocardial perfusion images were displayed in short axis, horizontal long axis, and vertical long axis views. Gated images were reviewed using Nvigen software. COMPARISON: None. CARDIAC STRESS: A pharmacologic stress test was performed under the supervision of an attending staff, using an infusion of lexiscan 0.4mg IV X1. Hemodynamic data: There is normal blood pressure and heart rate response to pharmacologic stress. Symptoms: The patient denied anginal chest pain. Aminophylline: none EKG: ECG non-diagnostic due to baseline LBBB; no ectopy. FINDINGS: Raw data: There is good myocardial uptake of radiotracer. No significant motion artifacts. Kqwb-fe-uvwun ratio is 0.39 (normal is less than 0.38 for tetrafosmin tracer). Left ventricle function: Gated images demonstrate apical akinesis and distal septal dysynchrony. TID is 1.36 (normal less than 1.3). Left ventricle resting end diastolic volume is 147 mL. Left ventricle stress ejection fraction is 50%; normal range is above 45%. Myocardial perfusion: There are moderately intense fixed defects in the distal anterior wall and the apex, consistent with prior infarction and no significant ischemia. There are mild to moderately intense fixed defects in the inferior wall (worse in the basal segment) and the septum (worse in the basal segment), consistent with prior infarction and no significant ischemia. SSS 16. No prone images obtained as the patient physically unable. IMPRESSION: Abnormal nuclear stress test consistent with prior infarction and no significant ischemia. Transient ischemic dilatation ratio elevated at 1.36 and lung/heart ratio elevated at 0.39. Correlate clinically. 1) There are moderately intense fixed defects in the distal anterior wall and the apex, consistent with prior infarction and no significant ischemia. There are mild to moderately intense fixed defects in the inferior wall (worse in the basal segment) and the septum (worse in the basal segment), consistent with prior infarction and no significant ischemia. SSS 16. 2) Mildly enlarged left ventricle (resting EDV 147cc) with low normal systolic function (EF post stress 50%). Apical akinesis and distal septal dysynchrony present. 3) Transient ischemic dilatation ratio elevated at 1.36; lung/heart ratio elevated at 0.39. Correlate clinically. 4) ECG non-diagnostic due to baseline LBBB. 5) No angina during the study. 6) No prior nuclear stress test available for comparison. Dictated by: Scott Robles MD on 10/22/2020 at 16:55 Approved by: Scott Robles MD on 10/22/2020 at 17:06
[2020-10-20 10:18] LABS: COVID19 -Nasal RAPID Negative (Negative)
== END ==
PROVIDERS: PCP Internal Medicine; Referring Provider Internal Medicine Cardiovascular Disease; Visit Provider Internal Medicine Cardiovascular Disease
DX: I25.5 Ischemic cardiomyopathy (principal); Z20.822 Contact with and (suspected) exposure to COVID-19; R06.00 Dyspnea, unspecified; R05 Cough
CPT/HCPCS: 78452; 87635; 93016; 93017; 93018; A9502; J2785

== ENCOUNTER 2021-01-27 20:19 | Emergency (ER) | payer MEDICARE, OTHER, SELFPAY ==
[2020-03-30 22:41] VITALS: BMI 27.9
[2021-01-27] VITALS (10 sets, daily range): BP systolic 149–192; BP diastolic 90–98; PULSE 89–93; RESP 20–25; TEMP 36.4; O2SAT 89–98; BMI 26.4
--- NOTE | 2021-01-27 20:28 | DI.RAD.S_ITS ---
PROCEDURE: XR CHEST 1V INDICATIONS: dyspnea TECHNIQUE: One view of the chest was acquired. COMPARISON: [facility], CR, XR CHEST 2V, 12/18/2019, 16:12. [facility], CR, XR CHEST 2V, 09/13/2019, 12:46. [facility], CR, XR CHEST 2V, 01/14/2020, 13:11. [facility], CR, XR CHEST 2V, 02/04/2020, 18:23. FINDINGS: Surgical changes and devices: Postsurgical changes redemonstrated in the mediastinum. Lungs and pleura: Left basilar pleural thickening and linear areas of atelectasis and scarring are redemonstrated. There are slightly increased left retrocardiac opacities compared to prior studies. Mediastinum: Mediastinal contours appear unchanged. Heart size is normal. Bones and chest wall: No suspicious bony lesions. Overlying soft tissues appear unremarkable. IMPRESSION: 1. Linear left basilar scarring or atelectasis as well as pleural thickening redemonstrated with slightly increased retrocardiac opacities which may represent superimposed consolidation or atelectasis. Dictated by: Erick Garcia M.D. on 01/27/2021 at 22:13 Approved by: Erick Garcia M.D. on 01/27/2021 at 22:15
--- NOTE | 2021-01-27 20:36 | ED.SOB ---
HPI - SOB/Dyspnea General Chief Complaint: Shortness of Breath/Dyspnea Stated Complaint: SOB Time Seen by Provider: 01/27/21 20:21 History of Present Illness HPI Narrative: 85-year-old nonsmoker with extensive medical history including coronary artery disease status post 4 way bypass in 2017, chronic renal failure, type 2 diabetes presents by EMS after evaluation of increasing shortness of breath over the past few days. He states that he has had exertional dyspnea and orthopnea for at least the past few days and had recently seen his primary care provider and was prescribed some Lasix. He had yet to get the prescription filled when the shortness of breath he was experiencing sufficient that he called for an EMS evaluation. On their arrival they found his pulse ox to be in the 80s which responded well after being put on a few L of oxygen. He is not dizzy nor weak or lightheaded. He denies any fever or chills. He denies any chest pain, heaviness, nausea, vomiting or diaphoresis. He denies any lower extremity pain but thinks he has had some swelling. He denies any history of congestive heart failure. His most recent stress test was a few months ago and showed findings consistent with his prior cardiac events but no acute findings. Related Data Home Medications Medication Instructions Recorded Confirmed allopurinol 100 mg tablet 200 mg PO DAILY 05/06/18 04/01/20 atorvastatin 40 mg tablet 40 mg PO DAILY 05/06/18 03/31/20 clopidogrel 75 mg tablet 75 mg PO DAILY 05/06/18 03/31/20 fluticasone propionate 50 50 mcg INTRANASAL BID 05/06/18 03/31/20 mcg/actuation nasal spray,suspension losartan 50 mg tablet 50 mg PO DAILY 05/06/18 04/01/20 metoprolol succinate 50 mg 50 mg PO DAILY 05/06/18 04/01/20 tablet,extended release 24 hr pantoprazole 40 mg tablet,delayed 40 mg PO DAILY 05/06/18 03/31/20 release tamsulosin 0.4 mg capsule 0.4 mg PO BEDTIME 05/06/18 03/31/20 metformin 500 mg tablet 1,000 mg PO BID 05/07/18 04/01/20 acetaminophen 300 mg-codeine 30 mg 1 tab PO Q6H PRN 03/31/20 04/01/20 tablet albuterol sulfate 90 mcg/actuation 1 puff INHALATION Q4H PRN 04/01/20 04/01/20 aerosol inhaler insulin NPH isoph U-100 human 100 31 unit SUBCUT BID 04/01/20 04/01/20 unit/mL (3 mL) subcutaneous pen (Novolin N Flexpen) Previous Rx's Medication Instructions Recorded gabapentin 600 mg tablet 300 mg PO TID #0 tab 04/02/20 spironolactone 25 mg tablet 12.5 mg PO DAILY #0 tab 04/02/20 Allergies Allergy/AdvReac Type Severity Reaction Status Date / Time tolmetin Allergy Severe Anaphylaxis Verified 05/05/18 21:29 Review of Systems Review of Systems Narrative: GENERAL: see HPI HEENT: Denies sinus pain, ear pain, sore throat, difficulty swallowing, dizziness. RESPIRATORY: see HPI CARDIOVASCULAR: Denies chest pain, palpitations, orthopnea, edema, GASTROINTESTINAL: Denies nausea, vomiting, abdominal pain, diarrhea, constipation, melena. : Denies dysuria, frequency, incontinence, hematuria, urinary retention. MUSCULOSKELETAL: denies weakness, joint pain, or bony pain SKIN: Denies rash, skin lesions, or other NEUROLOGIC: Denies weakness, headache, numbness, change in speech, confusion, seizures, incoordination. PSYCHIATRIC: No concerning psychosocial issues. 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 Well-developed patient, in moderate distress, obvious increased work of breathing, use of accessory muscles HEAD: Atraumatic. Normocephalic. EYES: Pupils equal round and reactive. Extraocular motions intact. No scleral icterus. No injection or drainage. ENT: Nose without bleeding, purulent drainage. Throat without erythema, tonsillar hypertrophy or exudate. Airway patent. NECK: Trachea midline. Non tender CARDIOVASCULAR: Regular rate and rhythm with 3/6 systolic murmur RESPIRATORY: faint crackles in bilateral bases GASTROINTESTINAL: Abdomen soft, non-tender, nondistended. EXTREMITIES: 1+ pitting edema bilateral lower extremities BACK: Nontender without deformity or crepitance. No flank tenderness. NEURO: AOx3. SKIN: No rash or erythema of visible areas Initial Vital Signs Initial Vital Signs: Vital Signs Temperature 97.5 F L 01/27/21 20:37 Pulse Rate 91 H 01/27/21 20:37 Respiratory Rate 25 H 01/27/21 20:37 Blood Pressure 192/98 H 01/27/21 20:37 Pulse Oximetry 89 L 01/27/21 20:37 Course Orders Ordered: ED Orders 01/27/21 21:27 ABG [Arterial Blood Gas] Stat 01/27/21 21:32 Blood Culture Stat 01/27/21 22:35 CT angio chest PE protocol Stat Nitroglycerin (Nitroglycerin 0.4 Mg Sl Tab) 0.4 mg SL [id number] PRN PRN Reason: Chest Pain Discontinued Medications Enoxaparin Sodium (Enoxaparin 40 Mg/0.4 Ml Syringe) 40 mg SUBCUT NOW ONE Stop: 01/28/21 01:04 Last Admin: 01/28/21 01:23 Dose: 40 mg Documented by: BASIM Enoxaparin Sodium (Enoxaparin 40 Mg/0.4 Ml Syringe) 50 mg SUBCUT NOW ONE Stop: 01/28/21 03:13 Last Admin: 01/28/21 03:36 Dose: 50 mg Documented by: ALEX Furosemide (Furosemide 40 Mg/4 Ml Vial) 40 mg IV NOW ONE Stop: 01/27/21 20:28 Last Admin: 01/27/21 20:39 Dose: 40 mg Documented by: BASIM Consultations Consultation #1: discussed with hospitalist here, given high risk for decompensation and lack of resources here patient will need transfer Consultation #2: call to hospitalist at [facility] (preferred given patient history there) and she is happy to accept patient in transfer Vital Signs Vital signs: Vital Signs - 8 hr 01/27/21 22:30 01/27/21 23:00 01/27/21 23:30 Pulse Rate 91 H 90 90 Respiratory Rate 21 22 25 H Blood Pressure 156/92 H 159/93 H 164/94 H Pulse Oximetry 96 97 95 01/27/21 23:54 01/28/21 00:00 01/28/21 00:30 Pulse Rate 89 100 H 90 Respiratory Rate 25 H 28 H 24 Blood Pressure 173/90 H 190/98 H 173/95 H Pulse Oximetry 98 97 01/28/21 01:07 01/28/21 01:30 01/28/21 02:00 Pulse Rate 90 90 91 H Respiratory Rate 24 23 19 Blood Pressure 182/102 H 176/104 H 166/97 H Pulse Oximetry 95 95 01/28/21 02:30 01/28/21 03:00 01/28/21 03:30 Pulse Rate 95 H 90 89 Respiratory Rate 20 17 17 Blood Pressure 177/93 H 150/84 H 165/88 H Pulse Oximetry 92 94 95 01/28/21 04:00 01/28/21 04:30 01/28/21 05:00 Pulse Rate 87 85 87 Respiratory Rate 17 19 18 Blood Pressure 168/97 H 173/89 H 162/95 H Pulse Oximetry 96 95 95 01/28/21 05:30 01/28/21 06:00 Pulse Rate 85 86 Respiratory Rate 18 18 Blood Pressure 170/93 H 157/89 H Pulse Oximetry 94 95 MDM - SOB/Dyspnea Lab Data Result diagrams: 01/27/21 20:35 01/27/21 20:35 Labs: Lab Results 01/27/21 01/27/21 01/27/21 Range/Units 20:35 20:35 20:35 WBC 9.1 (4.5-11.0) X10^3/uL RBC 4.33 L (4.5-5.9) X10^6/uL Hgb 13.3 L (13.5-17.5) g/dL Hct 41.3 (41-53) % MCV 95.3 (80-100) fL MCH 30.7 (26-34) PG MCHC 32.3 (30-36) % RDW 14.3 (11.6-14.8) % Plt Count 185 (150-400) X10^3/uL Neut % (Auto) 74.2 (50-75) % Lymph % (Auto) 16.0 L (25-40) % [place] % (Auto) 7.4 (3-14) % Eos % (Auto) 1.9 L (2-4) % Baso % (Auto) 0.5 (0-2) % Neut # (Auto) 6800 (9205-1554) /uL Lymph # (Auto) 1500 (4219-3540) /uL [place] # (Auto) 700 (0-900) /uL Eos # (Auto) 200 (0-450) /uL Baso # (Auto) 0 (0-100) /uL PT 11.7 (10.1-12.7) SECONDS INR 1.1 (0.9-1.3) APTT 31 (26.4-36.2) SECONDS D-Dimer 3931 H (<230) ng/mL ABG pH (7.35-7.45) ABG pCO2 (35-45) mmHg ABG pO2 (80-100) mmHg ABG HCO3 (22-26) mmol/L ABG Total CO2 (21-31) mmol/L ABG O2 Saturation (95-100) % ABG Base Excess (-2-2) mmol/L FiO2 Sodium 138 (137-145) mmol/L Potassium 4.4 (3.4-5.1) mmol/L Chloride 101 (98-107) mmol/L Carbon Dioxide 27 (22-32) mmol/L BUN 20 (9-20) mg/dL Creatinine 1.14 (0.66-1.25) mg/dL Estimated GFR > 60.0 (>60) mL/min BUN/Creatinine Ratio 17.5 (6-22) Glucose 193 H (80-110) mg/dL Lactate (0.7-2.1) mmol/L Calcium 9.1 (8.4-10.2) mg/dL Magnesium 1.6 (1.6-2.3) mg/dL Total Creatine Kinase 72 (55-170) U/L CK-MB (CK-2) TNP CK-MB (CK-2) Rel Index TNP Troponin I 0.038 H (0.01-0.034) ng/mL NT-Pro-B Natriuret Pep 1670 H (<450) pg/mL Procalcitonin 0.05 (<0.5) ng/mL Urine RBC (0-5/HPF) Urine WBC (0-5/HPF) Urine Bacteria (None) Ur Culture Indicated? SARS-CoV-2 (PCR) (Negative) 01/27/21 01/27/21 01/27/21 Range/Units 20:35 20:45 21:20 WBC (4.5-11.0) X10^3/uL RBC (4.5-5.9) X10^6/uL Hgb (13.5-17.5) g/dL Hct (41-53) % MCV (80-100) fL MCH (26-34) PG MCHC (30-36) % RDW (11.6-14.8) % Plt Count (150-400) X10^3/uL Neut % (Auto) (50-75) % Lymph % (Auto) (25-40) % [place] % (Auto) (3-14) % Eos % (Auto) (2-4) % Baso % (Auto) (0-2) % Neut # (Auto) (9090-6709) /uL Lymph # (Auto) (6188-7533) /uL [place] # (Auto) (0-900) /uL Eos # (Auto) (0-450) /uL Baso # (Auto) (0-100) /uL PT (10.1-12.7) SECONDS INR (0.9-1.3) APTT (26.4-36.2) SECONDS D-Dimer (<230) ng/mL ABG pH (7.35-7.45) ABG pCO2 (35-45) mmHg ABG pO2 (80-100) mmHg ABG HCO3 (22-26) mmol/L ABG Total CO2 (21-31) mmol/L ABG O2 Saturation (95-100) % ABG Base Excess (-2-2) mmol/L FiO2 Sodium (137-145) mmol/L Potassium (3.4-5.1) mmol/L Chloride (98-107) mmol/L Carbon Dioxide (22-32) mmol/L BUN (9-20) mg/dL Creatinine (0.66-1.25) mg/dL Estimated GFR (>60) mL/min BUN/Creatinine Ratio (6-22) Glucose (80-110) mg/dL Lactate 1.9 (0.7-2.1) mmol/L Calcium (8.4-10.2) mg/dL Magnesium (1.6-2.3) mg/dL Total Creatine Kinase (55-170) U/L CK-MB (CK-2) CK-MB (CK-2) Rel Index Troponin I (0.01-0.034) ng/mL NT-Pro-B Natriuret Pep (<450) pg/mL Procalcitonin (<0.5) ng/mL Urine RBC 0-1/hpf (0-5/HPF) Urine WBC None seen (0-5/HPF) Urine Bacteria None seen (None) Ur Culture Indicated? Cult not indicated SARS-CoV-2 (PCR) Negative (Negative) 01/27/21 Range/Units 21:27 WBC (4.5-11.0) X10^3/uL RBC (4.5-5.9) X10^6/uL Hgb (13.5-17.5) g/dL Hct (41-53) % MCV (80-100) fL MCH (26-34) PG MCHC (30-36) % RDW (11.6-14.8) % Plt Count (150-400) X10^3/uL Neut % (Auto) (50-75) % Lymph % (Auto) (25-40) % [place] % (Auto) (3-14) % Eos % (Auto) (2-4) % Baso % (Auto) (0-2) % Neut # (Auto) (0403-4531) /uL Lymph # (Auto) (0160-1684) /uL [place] # (Auto) (0-900) /uL Eos # (Auto) (0-450) /uL Baso # (Auto) (0-100) /uL PT (10.1-12.7) SECONDS INR (0.9-1.3) APTT (26.4-36.2) SECONDS D-Dimer (<230) ng/mL ABG pH 7.43 (7.35-7.45) ABG pCO2 44.5 (35-45) mmHg ABG pO2 68 L (80-100) mmHg ABG HCO3 29 H (22-26) mmol/L ABG Total CO2 31 (21-31) mmol/L ABG O2 Saturation 94 L (95-100) % ABG Base Excess 5.0 H (-2-2) mmol/L FiO2 32 Sodium (137-145) mmol/L Potassium (3.4-5.1) mmol/L Chloride (98-107) mmol/L Carbon Dioxide (22-32) mmol/L BUN (9-20) mg/dL Creatinine (0.66-1.25) mg/dL Estimated GFR (>60) mL/min BUN/Creatinine Ratio (6-22) Glucose (80-110) mg/dL Lactate (0.7-2.1) mmol/L Calcium (8.4-10.2) mg/dL Magnesium (1.6-2.3) mg/dL Total Creatine Kinase (55-170) U/L CK-MB (CK-2) CK-MB (CK-2) Rel Index Troponin I (0.01-0.034) ng/mL NT-Pro-B Natriuret Pep (<450) pg/mL Procalcitonin (<0.5) ng/mL Urine RBC (0-5/HPF) Urine WBC (0-5/HPF) Urine Bacteria (None) Ur Culture Indicated? SARS-CoV-2 (PCR) (Negative) Urine Dip Bedside Urine Glucose Negative Bedside Urine Bilirubin - Negative Bedside Urine Ketone - Negative Urine Specific [place] 1.020 Bedside Urine Occult Blood +/- Bedside Urine pH 6 Bedside Urine Protein ++ 100 Bedside Urine Urobilinogen - Negative Bedside Urine Nitrite - Negative Bedside Urine Leukocytes - Negative Esterase Imaging Data Chest x-ray: Radiologist's Impression: Winston Houston 85 M [address] [id number] ReportSigned Patient: Winston Houston LMR#: [id number]: [id number]:[id number]/Sex: 85 / MDate of Service: 01/27/21Loc: EDAccession Number: [id number] Procedure: XR chest 1V Ordering Provider: Igor Schulte D.O. PROCEDURE: XR CHEST 1V INDICATIONS: dyspnea TECHNIQUE: One view of the chest was acquired. COMPARISON: [facility], XR CHEST 2V, 12/18/2019, 16:12. [facility], CR, XR CHEST 2V, 09/13/2019, 12:46. [facility], CR, XR CHEST 2V, 01/14/2020, 13:11. [facility], CR, XR CHEST 2V, 02/04/2020, 18:23. FINDINGS: Surgical changes and devices: Postsurgical changes redemonstrated in the mediastinum. Lungs and pleura: Left basilar pleural thickening and linear areas of atelectasis and scarring are redemonstrated. There are slightly increased left retrocardiac opacities compared to prior studies. Mediastinum: Mediastinal contours appear unchanged. Heart size is normal. Bones and chest wall: No suspicious bony lesions. Overlying soft tissues appear unremarkable. IMPRESSION: 1. Linear left basilar scarring or atelectasis as well as pleural thickening redemonstrated with slightly increased retrocardiac opacities which may represent superimposed consolidation or atelectasis. Dictated by: Erick Garcia M.D. on 01/27/2021 at 22:13 Approved by: Erick Garcia M.D. on 01/27/2021 at 22:15 CT scan - chest: Radiologist's Impression: RV to LV ratio within normal limits. Several acute pulmonary emboli and right pulmonary arterial system from distal main pulmonary artery into segmental and subsegmental branches. No pleural effusions. No evidence of right heart strain. ECG Data Interpretation: Normal sinus rhythm with rate of 91, left bundle-branch block (old finding), QRS 178, QTC 410. No violations of Sgarbossa's criteria or obvious evidence of right heart strain MDM Narrative Medical decision making narrative: Patient with extensive cardiac history and a sudden change in heart failure picture, patient requiring supplemental oxygen. There is no evidence of heart strain on imaging or EKG. Slight trope release and significantly elevated BNP. Patient hemodynamically stable. Susu Score and PESI are low and patient isn't likely A candidate for mechanical which people, however due to the complexity of his medical history, and elevations of biochemical markers the patient is likely in need of a facility with greater capabilities from the ICU, cardiac and pulmonary standpoint. Critical Care Time Critical Care Time Attestation: The high probability of a clinically significant, sudden or life threatening deterioration of the [CV] system(s) required my full and direct attention, intervention and personal management. The aggregate critical care time was [] minutes. This time is in addition to time spent performing reported procedures but includes the following: [x] Data Review and interpretation [x] Patient assessment and monitoring of vital signs [x] Documentation [x] Medication orders and management Discharge Plan Departure Patient Disposition: [facility] Clinical Impression: Acute hypoxemic respiratory failure Pulmonary embolism Qualifiers: Pulmonary embolism type: unspecified Chronicity: acute Acute cor pulmonale presence: with acute cor pulmonale Qualified Code(s): I26.09 - Other pulmonary embolism with acute cor pulmonale Acute CHF Qualifiers: Heart failure type: right-sided Qualified Code(s): I50.811 - Acute right heart failure Prescriptions: No Action acetaminophen-codeine 300-30 mg tablet 1 tab PO Q6H PRN (Reason: Pain (Scale Score 1-3)) RF: 0 Novolin N Flexpen 100 unit/mL (3 mL) Insulin Pen 31 unit SUBCUT BID RF: 0 albuterol sulfate 90 mcg/actuation Hfa Aerosol Inhaler 1 puff INHALATION Q4H PRN (Reason: Shortness Of Breath) RF: 0 gabapentin 600 mg tablet 300 mg PO TID Qty: 0 RF: 0 spironolactone 25 mg tablet 12.5 mg PO DAILY Qty: 0 RF: 0 allopurinol 100 mg tablet 200 mg PO DAILY RF: 0 atorvastatin 40 mg tablet 40 mg PO DAILY RF: 0 clopidogrel 75 mg tablet 75 mg PO DAILY RF: 0 fluticasone propionate 50 mcg/actuation spray,suspension 50 mcg Intranasal BID RF: 0 losartan 50 mg tablet 50 mg PO DAILY RF: 0 pantoprazole 40 mg tablet,delayed release (DR/EC) 40 mg PO DAILY RF: 0 tamsulosin 0.4 mg capsule 0.4 mg PO BEDTIME RF: 0 metoprolol succinate 50 mg tablet extended release 24 hr 50 mg PO DAILY RF: 0 metformin 500 mg tablet 1,000 mg PO BID RF: 0 Referrals: Joseph Mae MD [Primary Care Provider] -
[2021-01-27] MEDS: FUROSEMIDE 40 MG/4 ML VIAL IV (20:39)
[2021-01-27 20:47] LABS: Add Manual Diff / Slide Review NO; Basophils Absolute Auto 0 /uL (0-100); Basophils Percent Auto 0.5 % (0-2); Eosinophils Absolute Auto 200 /uL (0-450); Eosinophils Percent Auto 1.9 % (2-4); Hematocrit 41.3 % (41-53); Hemoglobin 13.3 g/dL (13.5-17.5); Lymphocytes Absolute Auto 1500 /uL (1100-4500); Mean Corpuscular HGB Conc 32.3 % (30-36); Mean Corpuscular Hemoglobin 30.7 PG (26-34); Mean Corpuscular Volume 95.3 fL (80-100); Monocytes Absolute Auto 700 /uL (0-900); Monocytes Percent Auto 7.4 % (3-14); Neutrophils Absolute Auto 6800 /uL (1500-7000); Neutrophils Percent Auto 74.2 % (50-75); Platelet Count 185 X10^3/uL (150-400); Red Blood Cell Count 4.33 X10^6/uL (4.5-5.9); Red Cell Distribution Width 14.3 % (11.6-14.8); White Blood Cell Count 9.1 X10^3/uL (4.5-11.0)
[2021-01-27 21:09] LABS: INR 1.1 (0.9-1.3); Prothrombin Time 11.7 SECONDS (10.1-12.7)
[2021-01-27 21:11] LABS: PTT Partial Thromboplastin Tim 31 SECONDS (26.4-36.2)
[2021-01-27 21:12] LABS: BUN Creatinine Ratio 17.5 (6-22); Blood Urea Nitrogen 20 mg/dL (9-20); Calcium 9.1 mg/dL (8.4-10.2); Carbon Dioxide 27 mmol/L (22-32); Chloride 101 mmol/L (98-107); Creatine Kinase 72 U/L (55-170); Estimated Glomerular Filt Rate > 60.0 mL/min (>60); Glucose 193 mg/dL (80-110); Lactate (Lactic Acid) 1.9 mmol/L (0.7-2.1); Magnesium 1.6 mg/dL (1.6-2.3); Potassium 4.4 mmol/L (3.4-5.1); Sodium 138 mmol/L (137-145)
[2021-01-27 21:14] LABS: HEMOLYSIS 67 (0-50)
[2021-01-27 21:18] LABS: D Dimer 3931 ng/mL (<230)
[2021-01-27 21:25] LABS: NT-proBNP (BNP-Adult 18+) 1670 pg/mL (<450); Troponin I 0.038 ng/mL (0.01-0.034)
[2021-01-27 21:26] LABS: Bacteria Urine None Seen; WBC Urine None Seen (0-5/HPF)
[2021-01-27 21:29] LABS: Procalcitonin 0.05 ng/mL (<0.5)
[2021-01-27 21:34] LABS: Culture Indicated Urine Cult Not Indicated; RBC Urine 0-1/HPF (0-5/HPF)
[2021-01-27 21:57] LABS: COVID19 - ADMIT (NP swab/PCR) Negative (Negative)
--- NOTE | 2021-01-27 22:35 | DI.CT.S_ITS ---
PROCEDURE: CT ANGIO CHEST PE PROTOCOL INDICATIONS: Shortness of breath, hypoxia, acute CHF, critical DDimer TECHNIQUE: After the administration of intravenous contrast, 2 mm thick sections acquired from the pulmonary apices to the posterior costophrenic angles. 3-dimensional maximum intensity projection (MIP) coronal and sagittal reformats were then acquired through the thorax. For radiation dose reduction, the following was used: automated exposure control, adjustment of mA and/or kV according to patient size. COMPARISON: [facility], CT, CT CHEST W CON, 06/01/2018, 11:20. [facility], CT, CT CHEST HIGH RESOLUTION, 08/19/2020, 13:43. CT, CT CHEST WO CON, 05/05/2018, 18:17. [facility], CT, CT CHEST W CON, 02/19/2020, 14:27. FINDINGS: Image quality: Excellent. Pulmonary arteries: Pulmonary arteries are normal in size. There are intraluminal filling defects involving the right main pulmonary artery, right middle and lower lobe lobe artery, left upper lobe lobe artery consistent with pulmonary emboli.. Lungs and pleura: Left lower lobe nodules and nodular infiltrates. Left basilar consolidation or atelectasis. No pleural effusions or pneumothorax. Central and peripheral airways are patent. Mediastinum: Heart size is mildly increased. Moderate coronary artery calcification. CABG. No pericardial effusion. No mediastinal or hilar adenopathy. Thoracic aorta is normal in caliber and enhancement. Moderate aortic atherosclerosis. Esophagus is normal in caliber. Small hiatal hernia. Bones and chest wall: No suspicious bony lesions. Ribs and thoracic spine appear intact throughout. There is a 1.3 cm right thyroid nodule. No axillary or supraclavicular adenopathy. Abdomen: Cholecystectomy. 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 IMPRESSION: 1. There are pulmonary emboli involving the right main, right middle lobe, right lower lobe and left upper lobe lobar arteries, as well as the segmental and subsegmental arteries bilaterally consistent with pulmonary embolism. 2. Mild cardiomegaly and CABG. 3. Left lower lobe nodules or nodular infiltrates with left basilar consolidation consistent with pneumonia. Recommend follow-up CT to resolution. 4. A 1.3 cm nodule in the right thyroid lobe. Thyroid ultrasound is recommended for follow-up. 5. A 1.5 cm benign right adrenal nodule. No significant discrepancy with the individual pension consultant radiology preliminary report. Dictated by: Marcel Gandhi M.D. on 01/28/2021 at 7:54 Approved by: Marcel Gandhi M.D. on 01/28/2021 at 9:59
[2021-01-27 23:47] LABS: HCO3 ABG 29 mmol/L (22-26); PCO2 ABG 44.5 mmHg (35-45); PO2 ABG 68 mmHg (80-100); pH ABG 7.43 (7.35-7.45)
[2021-01-27 23:48] LABS: Fractionated Inspired Oxygen 32; Oxygen Saturation ABG 94 % (95-100); TCO2 ABG 31 mmol/L (21-31)
[2021-01-28] VITALS (14 sets, daily range): BP systolic 150–190; BP diastolic 84–104; PULSE 85–100; RESP 17–28; O2SAT 92–97
[2021-01-28] MEDS: ENOXAPARIN 40 MG/0.4 ML SYRINGE SUBCUT (01:23)
[2021-01-28] MEDS: ENOXAPARIN 40 MG/0.4 ML SYRINGE 50 MG SUBCUT (03:36)
== END 2021-01-28 06:45 | disposition short-term general hospital (02) ==
PROVIDERS: Emergency Provider Emergency Medicine; PCP Internal Medicine
DX: I26.09 Other pulmonary embolism with acute cor pulmonale (principal); I50.811 Acute right heart failure; J96.01 Acute respiratory failure with hypoxia
CPT/HCPCS: 36415; 36600; 71045; 71275; 80048; 81003; 81015; 82550; 82805; 83605; 83735; 83880; 84145; 84484; 85025; 85379; 85610; 85730; 87040; 87635; 93005; 93010; 96372; 96374; 99285; 99291; C9803; J1650; J1940; Q9967

== ENCOUNTER 2021-02-26 07:14 | Emergency (ER) | payer MEDICARE, OTHER, SELFPAY ==
[2020-03-30 22:41] VITALS: BMI 27.9
[2021-02-26] VITALS (8 sets, daily range): BP systolic 93–197; BP diastolic 52–91; PULSE 71–79; RESP 15–20; TEMP 36.6; O2SAT 92–97; BMI 26.2
--- NOTE | 2021-02-26 07:26 | DI.RAD.S_ITS ---
PROCEDURE: XR CHEST 1V INDICATIONS: hypoglycemia TECHNIQUE: One view of the chest was acquired. COMPARISON: [facility], CT, CT ANGIO CHEST PE PROTOCOL, 01/27/2021, 23:34. [facility], CR, XR CHEST 1V, 01/27/2021, 20:39. [facility], CR, XR CHEST 2V, 02/04/2020, 18:23. FINDINGS: Surgical changes and devices: Post median sternotomy. Lungs and pleura: Streaky opacity in the left lung is similar to the prior exams. Suspect mild airspace opacity in the left lung. No pleural effusions or pneumothorax. Mediastinum: Mediastinal contours appear unchanged. Aortic arch atherosclerotic calcifications. Heart size is prominent. Bones and chest wall: No suspicious bony lesions. Overlying soft tissues appear unremarkable. IMPRESSION: No interval change appreciated. Mild scarring or atelectasis in the left lung. Heart size appears enlarged. Dictated by: Grover Bourgeois M.D. on 02/26/2021 at 7:54 Approved by: Grover Bourgeois M.D. on 02/26/2021 at 7:58
--- NOTE | 2021-02-26 07:27 | ED.AMS ---
HPI - Altered Mental Status General Chief Complaint: Diabetic Problem Stated Complaint: Altered LOC Time Seen by Provider: 02/26/21 07:15 Source: patient, EMS and old records reviewed Mode of arrival: EMS Limitations: no limitations History of Present Illness HPI narrative: This is an 89-year-old male with known pulmonary emboli that was recently hospitalized at [place]. Patient comes in with hypoglycemia. His glucose was 25 at home he was awake but altered per EMS. Patient states he does not recall what happened this morning. After 1 amp of D 5, patient's glucose improved to 140 and on recheck your is 89. Patient himself denies any new issues. He does states he had 2 medications recently added but he is unsure what they are. Likely one is warfarin for his pulmonary emboli. He is on multiple medications for diabetes including Novolin, Invokana and metformin. Patient states his helps him and his medications. And he is unsure if he has any changes to his diabetic medications or when his last doses were. He is not currently at bedside. He denies any pain, no headache, chest pain or abdominal pain. He denies any shortness of breath. No nausea, no vomiting. He denies any urinary symptoms. He denies any diarrhea or constipation, melena or bright red blood. Patient does note he has some bruising on his left upper extremity where his IV was in place prior to leaving [place]. Patient does have a history significant for chronic kidney disease stage 3, type 2 diabetes, hypertension, dyslipidemia with CHF, coronary artery disease left bundle-branch block which is known. Gout, prior history of brain surgery and CABG x4 as well as prior bleeding ulcer. Related Data Home Medications Medication Instructions Recorded Confirmed allopurinol 100 mg tablet 200 mg PO DAILY 05/06/18 04/01/20 atorvastatin 40 mg tablet 40 mg PO DAILY 05/06/18 03/31/20 clopidogrel 75 mg tablet 75 mg PO DAILY 05/06/18 03/31/20 fluticasone propionate 50 50 mcg INTRANASAL BID 05/06/18 03/31/20 mcg/actuation nasal spray,suspension losartan 50 mg tablet 50 mg PO DAILY 05/06/18 04/01/20 metoprolol succinate 50 mg 50 mg PO DAILY 05/06/18 04/01/20 tablet,extended release 24 hr pantoprazole 40 mg tablet,delayed 40 mg PO DAILY 05/06/18 03/31/20 release tamsulosin 0.4 mg capsule 0.4 mg PO BEDTIME 05/06/18 03/31/20 metformin 500 mg tablet 1,000 mg PO BID 05/07/18 04/01/20 acetaminophen 300 mg-codeine 30 mg 1 tab PO Q6H PRN 03/31/20 04/01/20 tablet albuterol sulfate 90 mcg/actuation 1 puff INHALATION Q4H PRN 04/01/20 04/01/20 aerosol inhaler insulin NPH isoph U-100 human 100 31 unit SUBCUT BID 04/01/20 04/01/20 unit/mL (3 mL) subcutaneous pen (Novolin N Flexpen) Previous Rx's Medication Instructions Recorded gabapentin 600 mg tablet 300 mg PO TID #0 tab 04/02/20 spironolactone 25 mg tablet 12.5 mg PO DAILY #0 tab 04/02/20 Allergies Allergy/AdvReac Type Severity Reaction Status Date / Time tolmetin Allergy Severe Anaphylaxis Verified 05/05/18 21:29 Review of Systems Review of Systems ROS Unobtainable: All systems reviewed & are unremarkable except as noted in HPI and below Patient History Medical History (Updated 02/26/21 @ 09:57 by Gina Arita DO) Bleeding ulcer Chronic gout Chronic kidney disease (CKD) stage G3a/A1, moderately decreased glomerular filtration rate (GFR) between 45-59 mL/min/1.73 square meter and albuminuria creatinine ratio less than 30 mg/g Diabetes type 2, controlled Heart attack Hyperlipidemia Hypertension Left bundle branch block 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 Patient is hard of hearing. Has an easier time reading lips. HEENT: Head normocephalic, atraumatic, EOMI, pupils reactive, face symmetric, moist mucous membranes, no facial droop appreciated. NECK: Supple, full range of motion CARDIOVASCULAR: Regular rate and rhythm without murmurs, rubs or gallops. RESPIRATORY: Breath sounds equal bilaterally, no wheezes rales or rhonchi. ABDOMEN: Soft, nontender. Normoactive bowel sounds all 4 quadrants. No guarding or rebound, rigidity, no mass : No CVA tenderness EXTREMITIES: Normal range of motion, no clubbing or edema. Neurovascularly intact. Patient has bruising of his left upper extremity. No hematoma is appreciated. NEUROLOGICAL: Cranial nerves II through XII grossly intact. Moving all extremities. Patient did ambulate with assistance from a the EMS gurney across the room to the ED bed. SKIN: Warm, dry, no petechiae, no rashes or lesions otherwise noted. Initial Vital Signs Initial Vital Signs: Vital Signs Temperature 97.9 F 02/26/21 07:36 Pulse Rate 71 02/26/21 07:36 Respiratory Rate 18 02/26/21 07:36 Blood Pressure 197/91 H 02/26/21 07:36 Pulse Oximetry 97 02/26/21 07:36 Scores GCS Reinaldo coma scale eye opening: Spontaneous Reinaldo coma scale verbal response: Orientated Reinaldo coma scale motor response: Obey commands Reinaldo coma scale total score: 15 Course Orders Ordered: ED Orders 02/26/21 07:25 EKG-12 Lead Stat 02/26/21 07:26 XR chest 1V Stat 02/26/21 07:29 Complete Blood Count AUTO DIFF Stat Prothrombin Time INR Stat Thyroid Stimulating Hormone Stat 02/26/21 08:10 Comprehensive Metabolic Panel Stat 02/26/21 09:24 Urinalysis and Microscopic Stat Discontinued Medications Ondansetron HCl (Ondansetron 4 Mg/2 Ml Inj) 4 mg IV NOW ONE Stop: 02/26/21 09:27 Last Admin: 02/26/21 09:33 Dose: 4 mg Documented by: LAURI Reevaluation(s) Reevaluation #1: Patient glucose has states stable. He was given breakfast. Patient's is in the room. She notes that he was started on Invokana and his discharge in is taking Novolin as well as metformin 500 mg twice daily. Patient has not had any of his medications, he has not had any insulin. He does not take any medications in the morning. He she states he was also started warfarin and he is continue with Lovenox shots subcu. His physicians have been adjusting his warfarin level and they increased him from 7.5 to 10 mg every other day. He is due for a 10 mg tablet tonight. Patient's other medications are all stable with no new changes in these were all reviewed with his as well as the dosages. We also discussed his creatinine appears to be bumped from his usual I do not have all of his labs from [place] but he looks like he was at least 1.3 on arrival and this may be affecting his medications as well. After discussion with plan is for her to contact his primary care service to let them know were stopping the Invokana. To continue his warfarin as directed by his physicians helping to adjust. He has an INR recheck on Monday. We also discussed they may ask him to stop his losartan verses recheck his creatinine in the next day. Time: 09:51 Vital Signs Vital signs: Vital Signs - 8 hr 02/26/21 07:36 02/26/21 07:48 02/26/21 08:00 Temperature 97.9 F Pulse Rate 71 74 73 Respiratory Rate 18 19 Blood Pressure 197/91 H 155/75 H Pulse Oximetry 97 92 96 02/26/21 08:30 02/26/21 08:31 02/26/21 09:00 Temperature Pulse Rate 72 78 79 Respiratory Rate 15 17 20 Blood Pressure 93/52 L Pulse Oximetry 93 93 92 02/26/21 09:30 02/26/21 10:00 Temperature Pulse Rate 77 78 Respiratory Rate 18 17 Blood Pressure 141/75 H 158/79 H Pulse Oximetry 96 94 MDM - Altered Mental Status Lab Data Result diagrams: 02/26/21 07:29 02/26/21 08:10 Labs: Lab Results 02/26/21 02/26/21 02/26/21 Range/Units 07:29 07:29 07:29 WBC 9.0 (4.5-11.0) X10^3/uL RBC 4.12 L (4.5-5.9) X10^6/uL Hgb 12.9 L (13.5-17.5) g/dL Hct 39.7 L (41-53) % MCV 96.3 (80-100) fL MCH 31.2 (26-34) PG MCHC 32.4 (30-36) % RDW 14.6 (11.6-14.8) % Plt Count 187 (150-400) X10^3/uL Neut % (Auto) 77.0 H (50-75) % Lymph % (Auto) 13.5 L (25-40) % [place] % (Auto) 7.6 (3-14) % Eos % (Auto) 1.6 L (2-4) % Baso % (Auto) 0.3 (0-2) % Neut # (Auto) 6900 (2876-4675) /uL Lymph # (Auto) 1200 (6798-6295) /uL [place] # (Auto) 700 (0-900) /uL Eos # (Auto) 100 (0-450) /uL Baso # (Auto) 0 (0-100) /uL PT 15.4 H (10.1-12.7) SECONDS INR 1.4 H (0.9-1.3) Sodium (137-145) mmol/L Potassium (3.4-5.1) mmol/L Chloride (98-107) mmol/L Carbon Dioxide (22-32) mmol/L BUN (9-20) mg/dL Creatinine (0.66-1.25) mg/dL Estimated GFR (>60) mL/min BUN/Creatinine Ratio (6-22) Glucose (80-110) mg/dL Calcium (8.4-10.2) mg/dL Total Bilirubin (0.2-1.3) mg/dL AST (17-59) IU/L ALT (<50) IU/L Alkaline Phosphatase (38-126) U/L Total Protein (6.3-8.2) g/dL Albumin (3.5-5.0) g/dL Globulin (1.7-4.1) g/dL Albumin/Globulin Ratio (1.0-2.8) TSH 2.16 (0.47-4.68) uIU/mL Urine Color Urine Appearance Urine pH (4.5-8.0) Ur Specific Brinson (1.000-1.035) Urine Protein (Negative) Urine Glucose (UA) (Negative) g/dL Urine Ketones (NEGATIVE) Urine Occult Blood (Negative) Urine Nitrate (Negative) Urine Bilirubin (NEGATIVE) Urine Urobilinogen (0.2) E.U./dL Ur Leukocyte Esterase (NEGATIVE) Urine RBC (0-5/HPF) Urine WBC (0-5/HPF) Ur Squamous Epith Cells (0-5/HPF) Amorphous Sediment Urine Bacteria (None) Urine Mucus (Negative) Ur Culture Indicated? 02/26/21 02/26/21 Range/Units 08:10 09:24 WBC (4.5-11.0) X10^3/uL RBC (4.5-5.9) X10^6/uL Hgb (13.5-17.5) g/dL Hct (41-53) % MCV (80-100) fL MCH (26-34) PG MCHC (30-36) % RDW (11.6-14.8) % Plt Count (150-400) X10^3/uL Neut % (Auto) (50-75) % Lymph % (Auto) (25-40) % [place] % (Auto) (3-14) % Eos % (Auto) (2-4) % Baso % (Auto) (0-2) % Neut # (Auto) (4312-4116) /uL Lymph # (Auto) (8508-6647) /uL [place] # (Auto) (0-900) /uL Eos # (Auto) (0-450) /uL Baso # (Auto) (0-100) /uL PT (10.1-12.7) SECONDS INR (0.9-1.3) Sodium 140 (137-145) mmol/L Potassium 4.0 (3.4-5.1) mmol/L Chloride 104 (98-107) mmol/L Carbon Dioxide 27 (22-32) mmol/L BUN 34 H (9-20) mg/dL Creatinine 1.63 H (0.66-1.25) mg/dL Estimated GFR 40.6 L (>60) mL/min BUN/Creatinine Ratio 20.9 (6-22) Glucose 76 L (80-110) mg/dL Calcium 9.5 (8.4-10.2) mg/dL Total Bilirubin 0.3 (0.2-1.3) mg/dL AST 35 (17-59) IU/L ALT 34 (<50) IU/L Alkaline Phosphatase 66 (38-126) U/L Total Protein 7.1 (6.3-8.2) g/dL Albumin 4.1 (3.5-5.0) g/dL Globulin 3.0 (1.7-4.1) g/dL Albumin/Globulin Ratio 1.4 (1.0-2.8) TSH (0.47-4.68) uIU/mL Urine Color Yellow Urine Appearance Clear Urine pH 5.5 (4.5-8.0) Ur Specific Brinson 1.015 (1.000-1.035) Urine Protein 1+ H (Negative) Urine Glucose (UA) 2+ H (Negative) g/dL Urine Ketones Negative (NEGATIVE) Urine Occult Blood Negative (Negative) Urine Nitrate Negative (Negative) Urine Bilirubin Negative (NEGATIVE) Urine Urobilinogen 0.2 (0.2) E.U./dL Ur Leukocyte Esterase Negative (NEGATIVE) Urine RBC None seen (0-5/HPF) Urine WBC None seen (0-5/HPF) Ur Squamous Epith Cells 0-1 /hpf (0-5/HPF) Amorphous Sediment 1+ Urine Bacteria None seen (None) Urine Mucus 1+ H (Negative) Ur Culture Indicated? Cult not indicated Point of Care Testing Glucose POC 107 ECG Data Attestation: I personally reviewed and interpreted this ECG as follows: Prior ECG tracings: available for review Interpretation: Sided with a first-degree AV block. Left bundle branch block. Rate of 70 2p are 212 QRS of 200 and QTC of 510. MDM Narrative Medical decision making narrative: Patient's glucose was 140 was fed a peanut butter sandwich per EMS and is 89 here in the department. Patient was given additional oral food here in the department. Labs and EKG were checked and records were attempted to be obtained from [place]. Patient's able to give me much history about his medications but his was able to let me know that he is on Lovenox, warfarin and Invokana as his new medications all of his other medications have stayed stable. It was noted he does have a bump in his creatinine from his prior visit here and appears it may even be bumped up from his [facility] [place] they although I do not have complete records. Patient's highest was 1.3 at [facility] [place] from 01/28/2021. And it is noted the Invokana can cause acute kidney injury as well as hypoglycemia particularly in conjunction with other medications. They were asked to stop the Invokana. Patient does not have other obvious causes of his symptomatology. His warfarin is subtherapeutic but he is on Lovenox and his has prescription pending to continue Lovenox until he is therapeutic. He has a plan in place to have his INR rechecked and they are ready adjusting his medications with a plan to increase his dosage tonight to 10 mg. All questions were answered. We did discuss signs and symptoms to watch for, return precautions. Discharge Plan Departure Patient Disposition: Home Clinical Impression: Hypoglycemia, Elevated serum creatinine Instructions: DI for Hypoglycemia Activity Restrictions/Additional Instructions: Call your physician today to help adjust your medications. Stop your Invokana, this may be causing some of your low blood sugars/hypoglycemia. It is also known to sometimes cause injury to the kidney and may be the cause of your rising creatinine. You may continue your metformin and Novolin. Your INR today is 1.4. Continue to use your Lovenox and adjust your warfarin as directed by your physicians. Your creatinine or renal function today is 1.63. The last comparison I can find from [facility] [place] is 1.39 on 01/28/2021 but I don't have your complete records. If you have confusion or altered mental status, try of sugar as well as something with some protein and fat and shortly afterwards if they are able to safely eat. If they are not immediately call 911 for assistance. Please return for recurrent low sugars, altered mental status, confusion, headaches, new chest pain, shortness of breath, swelling in your extremities, persistent vomiting, black or bloody stools or other new or concerning symptoms. Prescriptions: No Action acetaminophen-codeine 300-30 mg tablet 1 tab PO Q6H PRN (Reason: Pain (Scale Score 1-3)) RF: 0 Novolin N Flexpen 100 unit/mL (3 mL) Insulin Pen 31 unit SUBCUT BID RF: 0 albuterol sulfate 90 mcg/actuation Hfa Aerosol Inhaler 1 puff INHALATION Q4H PRN (Reason: Shortness Of Breath) RF: 0 gabapentin 600 mg tablet 300 mg PO TID Qty: 0 RF: 0 spironolactone 25 mg tablet 12.5 mg PO DAILY Qty: 0 RF: 0 allopurinol 100 mg tablet 200 mg PO DAILY RF: 0 atorvastatin 40 mg tablet 40 mg PO DAILY RF: 0 clopidogrel 75 mg tablet 75 mg PO DAILY RF: 0 fluticasone propionate 50 mcg/actuation spray,suspension 50 mcg Intranasal BID RF: 0 losartan 50 mg tablet 50 mg PO DAILY RF: 0 pantoprazole 40 mg tablet,delayed release (DR/EC) 40 mg PO DAILY RF: 0 tamsulosin 0.4 mg capsule 0.4 mg PO BEDTIME RF: 0 metoprolol succinate 50 mg tablet extended release 24 hr 50 mg PO DAILY RF: 0 metformin 500 mg tablet 1,000 mg PO BID RF: 0 Referrals: Joseph Mae MD [Primary Care Provider] -
[2021-02-26 07:39] LABS: Add Manual Diff / Slide Review NO; Basophils Absolute Auto 0 /uL (0-100); Basophils Percent Auto 0.3 % (0-2); Eosinophils Absolute Auto 100 /uL (0-450); Eosinophils Percent Auto 1.6 % (2-4); Hematocrit 39.7 % (41-53); Hemoglobin 12.9 g/dL (13.5-17.5); Lymphocytes Absolute Auto 1200 /uL (1100-4500); Lymphocytes Percent Auto 13.5 % (25-40); Mean Corpuscular HGB Conc 32.4 % (30-36); Mean Corpuscular Hemoglobin 31.2 PG (26-34); Mean Corpuscular Volume 96.3 fL (80-100); Monocytes Absolute Auto 700 /uL (0-900); Monocytes Percent Auto 7.6 % (3-14); Neutrophils Absolute Auto 6900 /uL (1500-7000); Platelet Count 187 X10^3/uL (150-400); Red Blood Cell Count 4.12 X10^6/uL (4.5-5.9); Red Cell Distribution Width 14.6 % (11.6-14.8)
[2021-02-26 07:45] LABS: INR 1.4 (0.9-1.3); Prothrombin Time 15.4 SECONDS (10.1-12.7)
[2021-02-26 08:52] LABS: Alanine Aminotransferase 34 IU/L (<50); Albumin 4.1 g/dL (3.5-5.0); Albumin Globulin Ratio 1.4 (1.0-2.8); Alkaline Phosphatase 66 U/L (38-126); Aspartate Aminotransferase 35 IU/L (17-59); BUN Creatinine Ratio 20.9 (6-22); Bilirubin Total 0.3 mg/dL (0.2-1.3); Blood Urea Nitrogen 34 mg/dL (9-20); Calcium 9.5 mg/dL (8.4-10.2); Carbon Dioxide 27 mmol/L (22-32); Chloride 104 mmol/L (98-107); Estimated Glomerular Filt Rate 40.6 mL/min (>60); Glucose 76 mg/dL (80-110); HEMOLYSIS 19 (0-50); Sodium 140 mmol/L (137-145); Total Protein 7.1 g/dL (6.3-8.2)
[2021-02-26 09:25] LABS: Bacteria Urine None Seen; RBC Urine None Seen (0-5/HPF); WBC Urine None Seen (0-5/HPF)
[2021-02-26 09:26] LABS: Appearance Urine UA CLEAR; Bilirubin Urine UA NEGATIVE (NEGATIVE); Color Urine UA YELLOW; Glucose Urine UA 2+ g/dL (Negative); Ketones Urine UA NEGATIVE (NEGATIVE); Leukocyte Esterase Urine UA NEGATIVE (NEGATIVE); Nitrite Urine UA NEGATIVE (Negative); Occult Blood Urine UA NEGATIVE (Negative); Protein Urine UA 1+ (Negative); Specific Gravity Urine UA 1.015 (1.000-1.035); Urobilinogen Urine UA 0.2 E.U./dL (0.2); pH Urine UA 5.5 (4.5-8.0)
[2021-02-26 09:27] LABS: Thyroid Stimulating Hormone 2.16 uIU/mL (0.47-4.68)
[2021-02-26 09:33] LABS: Amorphous Sediment Urine 1+; Culture Indicated Urine Cult Not Indicated; Mucus Urine 1+ (Negative); Squamous Epithelial Cell Urine 0-1 /HPF (0-5/HPF)
[2021-02-26] MEDS: ONDANSETRON 4 MG/2 ML INJ IV (09:33)
== END 2021-02-26 10:32 | disposition home or self-care (01) ==
PROVIDERS: Emergency Provider Emergency Medicine; PCP Internal Medicine
DX: E11.649 Type 2 diabetes mellitus with hypoglycemia without coma (principal); R79.89 Other specified abnormal findings of blood chemistry; R41.82 Altered mental status, unspecified
CPT/HCPCS: 36415; 71045; 80053; 81001; 82962; 84443; 85025; 85610; 93005; 96374; 99284; J2405

== ENCOUNTER → 2021-04-16 13:23 | Outpatient (CLI) | payer MEDICARE, OTHER, SELFPAY ==
[2020-03-30 22:41] VITALS: BMI 27.9
--- NOTE | 2021-04-16 | DI.RAD.S_ITS ---
PROCEDURE: XR KNEE RT 1TO2V INDICATIONS: CHRONIC PAIN OF RIGHT KNEE TECHNIQUE: 2 views of the knee were acquired. COMPARISON: None. FINDINGS: Bones: No fractures or dislocations. No suspicious bony lesions. Moderate tricompartmental osteoarthritic degenerative changes noted in the right knee. Moderate lateral medial compartment osteoarthritic degenerative changes noted in the left knee. Bilateral knee chondrocalcinosis. Soft tissues: Small right suprapatellar joint effusion. No suspicious soft tissue calcifications. IMPRESSION: 1. Moderate bilateral knee osteoarthritis. 2. Chondrocalcinosis. 3. Small nonspecific right knee joint effusion. Dictated by: Hope Vasquez MD, PhD on 04/16/2021 at 16:29 Approved by: Hope Vasquez MD, PhD on 04/16/2021 at 16:30
== END ==
PROVIDERS: PCP Internal Medicine; Referring Provider Internal Medicine; Visit Provider Internal Medicine
DX: M25.561 Pain in right knee (principal); G89.29 Other chronic pain; M17.11 Unilateral primary osteoarthritis, right knee; M11.261 Other chondrocalcinosis, right knee; M25.461 Effusion, right knee
CPT/HCPCS: 73560

== ENCOUNTER 2021-05-08 16:17 | Emergency (ER) | payer MEDICARE, OTHER, SELFPAY ==
[2020-03-30 22:41] VITALS: BMI 27.9
[2021-05-08] VITALS (13 sets, daily range): BP systolic 162–195; BP diastolic 78–129; PULSE 70–79; RESP 18; TEMP 36.2; O2SAT 95–98; BMI 25.9
[2021-05-08 16:38] LABS: COVID19 -Nasal RAPID POSITIVE (Negative)
--- NOTE | 2021-05-08 16:53 | ED.GIBLEED ---
HPI - GI Bleed General Chief complaint: GI Bleed Stated complaint: Nose bleed Time Seen by Provider: 05/08/21 16:19 Source: patient and EMS Mode of arrival: EMS Limitations: no limitations History of Present Illness HPI Narrative: 85M nonsmoker with history of Afib on coumadin presents by EMS for evaluation of a nose bleed today. He denies any injury. He states that nose is no longer bleeding but was left nostril and had blood down the back of his throat a small amount. He is not recently been ill and denies any fever or chills. He denies any change in his medications or recent elevated INRs. He denies chest pain or shortness of breath. He denies abdominal pain, nausea or vomiting. He did state to his primary care provider the thought he saw some blood in his diaper at 1 point. His is at home with COVID pneumonia. He had his vaccination. Related Data Home Medications Medication Instructions Recorded Confirmed allopurinol 100 mg tablet 200 mg PO DAILY 05/06/18 04/01/20 atorvastatin 40 mg tablet 40 mg PO DAILY 05/06/18 03/31/20 clopidogrel 75 mg tablet 75 mg PO DAILY 05/06/18 03/31/20 fluticasone propionate 50 50 mcg INTRANASAL BID 05/06/18 03/31/20 mcg/actuation nasal spray,suspension losartan 50 mg tablet 50 mg PO DAILY 05/06/18 04/01/20 metoprolol succinate 50 mg 50 mg PO DAILY 05/06/18 04/01/20 tablet,extended release 24 hr pantoprazole 40 mg tablet,delayed 40 mg PO DAILY 05/06/18 03/31/20 release tamsulosin 0.4 mg capsule 0.4 mg PO BEDTIME 05/06/18 03/31/20 metformin 500 mg tablet 1,000 mg PO DAILY 05/07/18 05/08/21 acetaminophen 300 mg-codeine 30 mg 1 tab PO Q6H PRN 03/31/20 04/01/20 tablet albuterol sulfate 90 mcg/actuation 1 puff INHALATION Q4H PRN 04/01/20 04/01/20 aerosol inhaler metformin 500 mg tablet 500 mg PO BEDTIME 05/08/21 05/08/21 Previous Rx's Medication Instructions Recorded gabapentin 600 mg tablet 300 mg PO TID #0 tab 04/02/20 spironolactone 25 mg tablet 12.5 mg PO DAILY #0 tab 04/02/20 Allergies Allergy/AdvReac Type Severity Reaction Status Date / Time tolmetin Allergy Severe Anaphylaxis Verified 05/08/21 16:28 Review of Systems Review of Systems Narrative: GENERAL: See HPI HEENT: See HPI RESPIRATORY: Denies dyspnea, cough, wheezing, hemoptysis, sputum. CARDIOVASCULAR: Denies chest pain, palpitations, orthopnea, edema, GASTROINTESTINAL: See HPI : Denies dysuria, frequency, incontinence, hematuria, urinary retention. MUSCULOSKELETAL: denies weakness, joint pain, or bony pain SKIN: Denies rash, skin lesions, or other NEUROLOGIC: Denies weakness, headache, numbness, change in speech, confusion, seizures, incoordination. PSYCHIATRIC: No concerning psychosocial issues. 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 Well-developed patient, in mild distress. HEAD: Atraumatic. Normocephalic. EYES: Pupils equal round and reactive. Extraocular motions intact. No scleral icterus. No injection or drainage. ENT: Left nostril with fresh clots, no active bleeding or obvious source. No purulent drainage. Throat without erythema, tonsillar hypertrophy or exudate. No posterior pharyngeal blood. Airway patent. NECK: Trachea midline. Non tender CARDIOVASCULAR: Regular rate and rhythm without murmurs, gallops, or rubs. RESPIRATORY: Clear to auscultation. Breath sounds equal bilaterally. No wheezes, rales, or rhonchi. GASTROINTESTINAL: Abdomen soft, non-tender, nondistended. RECTAL: No evidence of bleeding, Heme NEG EXTREMITIES: No edema or joint tenderness. BACK: Nontender without deformity or crepitance. No flank tenderness. NEURO: AOx3. SKIN: No rash or erythema of visible areas Initial Vital Signs Initial Vital Signs: Vital Signs Temperature 97.2 F L 05/08/21 16:28 Pulse Rate 77 05/08/21 16:28 Respiratory Rate 18 05/08/21 16:28 Blood Pressure 195/89 H 05/08/21 16:28 Pulse Oximetry 97 05/08/21 16:28 Course Orders Ordered: Discontinued Medications Tranexamic Acid (Tranexamic Acid 1,000 Mg Vial) 1,000 mg MM NOW ONE Stop: 05/08/21 17:37 Last Admin: 05/08/21 17:40 Dose: 1,000 mg Documented by: EPIFANIO Vital Signs Vital signs: Vital Signs - 8 hr 05/08/21 16:28 05/08/21 16:33 05/08/21 17:00 Temperature 97.2 F L Pulse Rate 77 77 79 Respiratory Rate 18 Blood Pressure 195/89 H 173/85 H Pulse Oximetry 97 97 95 05/08/21 17:30 Temperature Pulse Rate 78 Respiratory Rate Blood Pressure 168/84 H Pulse Oximetry 96 MDM - GI Bleed Lab Data Result diagrams: 05/08/21 16:33 05/08/21 16:33 Labs: Lab Results 05/08/21 05/08/21 05/08/21 Range/Units 16:23 16:33 16:33 WBC 4.7 (4.5-11.0) X10^3/uL RBC 3.95 L (4.5-5.9) X10^6/uL Hgb 12.2 L (13.5-17.5) g/dL Hct 36.8 L (41-53) % MCV 93.3 (80-100) fL MCH 31.0 (26-34) PG MCHC 33.2 (30-36) % RDW 14.0 (11.6-14.8) % Plt Count 179 (150-400) X10^3/uL Neut % (Auto) 63.6 (50-75) % Lymph % (Auto) 24.7 L (25-40) % [place] % (Auto) 10.3 (3-14) % Eos % (Auto) 1.2 L (2-4) % Baso % (Auto) 0.2 (0-2) % Neut # (Auto) 3000 (5088-2191) /uL Lymph # (Auto) 1200 (4093-7052) /uL [place] # (Auto) 500 (0-900) /uL Eos # (Auto) 100 (0-450) /uL Baso # (Auto) 0 (0-100) /uL PT (10.1-12.7) SECONDS INR (0.9-1.3) Sodium 140 (137-145) mmol/L Potassium 3.7 (3.4-5.1) mmol/L Chloride 100 (98-107) mmol/L Carbon Dioxide 28 (22-32) mmol/L BUN 20 (9-20) mg/dL Creatinine 1.21 (0.66-1.25) mg/dL Estimated GFR 57.3 L (>60) mL/min BUN/Creatinine Ratio 16.5 (6-22) Glucose 130 H (80-110) mg/dL Calcium 8.7 (8.4-10.2) mg/dL Total Bilirubin 0.5 (0.2-1.3) mg/dL AST 66 H (17-59) IU/L ALT 65 H (<50) IU/L Alkaline Phosphatase 100 (38-126) U/L Total Protein 7.1 (6.3-8.2) g/dL Albumin 4.1 (3.5-5.0) g/dL Globulin 3.0 (1.7-4.1) g/dL Albumin/Globulin Ratio 1.4 (1.0-2.8) SARS-CoV-2 (PCR) Positive H (Negative) 05/08/21 Range/Units 17:45 WBC (4.5-11.0) X10^3/uL RBC (4.5-5.9) X10^6/uL Hgb (13.5-17.5) g/dL Hct (41-53) % MCV (80-100) fL MCH (26-34) PG MCHC (30-36) % RDW (11.6-14.8) % Plt Count (150-400) X10^3/uL Neut % (Auto) (50-75) % Lymph % (Auto) (25-40) % [place] % (Auto) (3-14) % Eos % (Auto) (2-4) % Baso % (Auto) (0-2) % Neut # (Auto) (8763-8170) /uL Lymph # (Auto) (1953-3539) /uL [place] # (Auto) (0-900) /uL Eos # (Auto) (0-450) /uL Baso # (Auto) (0-100) /uL PT 112.6 H (10.1-12.7) SECONDS INR 9.3 H* (0.9-1.3) Sodium (137-145) mmol/L Potassium (3.4-5.1) mmol/L Chloride (98-107) mmol/L Carbon Dioxide (22-32) mmol/L BUN (9-20) mg/dL Creatinine (0.66-1.25) mg/dL Estimated GFR (>60) mL/min BUN/Creatinine Ratio (6-22) Glucose (80-110) mg/dL Calcium (8.4-10.2) mg/dL Total Bilirubin (0.2-1.3) mg/dL AST (17-59) IU/L ALT (<50) IU/L Alkaline Phosphatase (38-126) U/L Total Protein (6.3-8.2) g/dL Albumin (3.5-5.0) g/dL Globulin (1.7-4.1) g/dL Albumin/Globulin Ratio (1.0-2.8) SARS-CoV-2 (PCR) (Negative) MDM Narrative Medical decision making narrative: Patient presents by EMS for the evaluation of a spontaneous nose bleed in the setting of home meds including COVID. He has fresh clots with no evidence of active bleeding here in the department. Vital signs are stable, H&H is stable. Rectal exam is heme negative. There is no obvious source of the bleeding or location for her cauterization. Nasal packing with TXA placed. INR is found to be quite elevated. Given the patient's newly found diagnosis of COVID and it is hypercoagulable nature, along with patient's history of PE I contacted the on-call petroleum products sales representative patient's PCP to discuss plan moving forward. We sure the opinion that reversal of INR is risk year than holding his Coumadin with close follow-up and appropriate return precautions. He will relate a note to the patient's PCP and sure the opinion that close follow-up is most appropriate. Also, form faxed to [facility] Discharge Plan Departure Patient Disposition: Home Clinical Impression: COVID-19, Acute anterior epistaxis, Supratherapeutic INR Instructions: DI for Nosebleed, DI for COVID-19 (Suspected or Confirmed ) Activity Restrictions/Additional Instructions: *You have been diagnosed with [ COVID-19, and nosebleed with elevated INR. ] *What to do: * per recommendations from the CDC and the [facility] Department of Health * stay home except to get medical care. Restrict activities outside your home, except for getting medical care. Do not go to work, school, or public areas. Avoid using public transportation, ride sharing, or taxis. * separate yourself from other people in your home. * call ahead before visiting your doctor * Wear a facemask * Cover your coughs and sneezes * Clean your hands often * Avoid sharing household items * Clean all high-touch services every day * Monitor your symptoms and seek prompt medical attention if your illness is worsening, particularly with difficulty in breathing. You may discontinue your isolation when: 1. You have been fever-free for at least 24 hours without the use of fever reducing medication, AND 2. Your symptoms are getting better 3. At least 10 days have passed since symptoms first appeared Individuals with laboratory confirmed COVID-19 who have not had any symptoms may discontinue home isolation when at least 10 days have passed since the date of their first COVID-19 diagnostic test and have had no subsequent illness DO NOT TAKE YOUR WARFARIN FOR THE NEXT 3 DAYS. You will need to see Dr. Mae on Monday for follow up. As I discussed with your I have faxed a form to [facility] as he meets the criteria to receive a medication called monoclonal antibody which can help people with COVID-19 from getting sick enough to require hospitalization. This medication however is in short supply and may not be available. Also, as we discussed it is not FDA approved but has been authorized by emergency use protocols Prescriptions: No Action acetaminophen-codeine 300-30 mg tablet 1 tab PO Q6H PRN (Reason: Pain (Scale Score 1-3)) RF: 0 albuterol sulfate 90 mcg/actuation Hfa Aerosol Inhaler 1 puff INHALATION Q4H PRN (Reason: Shortness Of Breath) RF: 0 gabapentin 600 mg tablet 300 mg PO TID Qty: 0 RF: 0 spironolactone 25 mg tablet 12.5 mg PO DAILY Qty: 0 RF: 0 metformin 500 mg tablet 500 mg PO BEDTIME RF: 0 allopurinol 100 mg tablet 200 mg PO DAILY RF: 0 atorvastatin 40 mg tablet 40 mg PO DAILY RF: 0 clopidogrel 75 mg tablet 75 mg PO DAILY RF: 0 fluticasone propionate 50 mcg/actuation spray,suspension 50 mcg Intranasal BID RF: 0 losartan 50 mg tablet 50 mg PO DAILY RF: 0 pantoprazole 40 mg tablet,delayed release (DR/EC) 40 mg PO DAILY RF: 0 tamsulosin 0.4 mg capsule 0.4 mg PO BEDTIME RF: 0 metoprolol succinate 50 mg tablet extended release 24 hr 50 mg PO DAILY RF: 0 metformin 500 mg tablet 1,000 mg PO DAILY RF: 0 Referrals: Joseph Mae MD [Primary Care Provider] -
[2021-05-08 16:57] LABS: Add Manual Diff / Slide Review NO; Basophils Absolute Auto 0 /uL (0-100); Basophils Percent Auto 0.2 % (0-2); Eosinophils Absolute Auto 100 /uL (0-450); Eosinophils Percent Auto 1.2 % (2-4); Hematocrit 36.8 % (41-53); Hemoglobin 12.2 g/dL (13.5-17.5); Lymphocytes Absolute Auto 1200 /uL (1100-4500); Lymphocytes Percent Auto 24.7 % (25-40); Mean Corpuscular HGB Conc 33.2 % (30-36); Mean Corpuscular Volume 93.3 fL (80-100); Monocytes Absolute Auto 500 /uL (0-900); Monocytes Percent Auto 10.3 % (3-14); Neutrophils Absolute Auto 3000 /uL (1500-7000); Neutrophils Percent Auto 63.6 % (50-75); Platelet Count 179 X10^3/uL (150-400); Red Blood Cell Count 3.95 X10^6/uL (4.5-5.9); White Blood Cell Count 4.7 X10^3/uL (4.5-11.0)
[2021-05-08 17:01] LABS: Alanine Aminotransferase 65 IU/L (<50); Albumin 4.1 g/dL (3.5-5.0); Albumin Globulin Ratio 1.4 (1.0-2.8); Alkaline Phosphatase 100 U/L (38-126); Aspartate Aminotransferase 66 IU/L (17-59); BUN Creatinine Ratio 16.5 (6-22); Bilirubin Total 0.5 mg/dL (0.2-1.3); Blood Urea Nitrogen 20 mg/dL (9-20); Calcium 8.7 mg/dL (8.4-10.2); Carbon Dioxide 28 mmol/L (22-32); Chloride 100 mmol/L (98-107); Estimated Glomerular Filt Rate 57.3 mL/min (>60); Glucose 130 mg/dL (80-110); HEMOLYSIS < 15 (0-50); Potassium 3.7 mmol/L (3.4-5.1); Sodium 140 mmol/L (137-145); Total Protein 7.1 g/dL (6.3-8.2)
[2021-05-08] MEDS: TRANEXAMIC ACID 1,000 MG VIAL 1000 MG MM (17:40)
[2021-05-08 18:41] LABS: INR 9.3 (0.9-1.3)
[2021-05-08 18:43] LABS: Prothrombin Time 112.6 SECONDS (10.1-12.7)
--- NOTE | 2021-05-08 20:16 | PC.NURSE ---
Patient requested assistance to blow his nose. His nose is not actively bleeding at this time. Advised patient not to blow his nose.
== END 2021-05-08 21:45 | disposition home or self-care (01) ==
PROVIDERS: Emergency Provider Emergency Medicine; PCP Internal Medicine
DX: U07.1 COVID-19 (principal); R04.0 Epistaxis; D68.32 Hemorrhagic disorder due to extrinsic circulating anticoagulants; Z79.01 Long term (current) use of anticoagulants
CPT/HCPCS: 80053; 85025; 85610; 87635; 96372; 99282; 99283; C9803

== ENCOUNTER → 2021-05-13 14:32 | Outpatient (CLI) | payer MEDICARE, OTHER, SELFPAY ==
[2020-03-30 22:41] VITALS: BMI 27.9
[2021-05-13 15:09] LABS: INR 1.9 (0.9-1.3); Prothrombin Time 21.9 SECONDS (10.1-12.7)
== END ==
PROVIDERS: PCP Internal Medicine; Referring Provider Internal Medicine; Visit Provider Internal Medicine
DX: I26.99 Other pulmonary embolism without acute cor pulmonale (principal)
CPT/HCPCS: 36415; 85610

== ENCOUNTER → 2021-05-20 14:45 | Outpatient (CLI) | payer MEDICARE, OTHER, SELFPAY ==
[2020-03-30 22:41] VITALS: BMI 27.9
[2021-05-20 16:52] LABS: INR 5.1 (0.9-1.3)
== END ==
PROVIDERS: PCP Internal Medicine; Referring Provider Student in an Organized Health Care Education/Training Program; Visit Provider Student in an Organized Health Care Education/Training Program
DX: I26.99 Other pulmonary embolism without acute cor pulmonale (principal)
CPT/HCPCS: 36415; 85610

== ENCOUNTER → 2021-05-24 13:29 | Outpatient (CLI) | payer MEDICARE, OTHER, SELFPAY ==
[2020-03-30 22:41] VITALS: BMI 27.9
[2021-05-24 14:57] LABS: INR 1.2 (0.9-1.3); Prothrombin Time 13.7 SECONDS (10.1-12.7)
== END ==
PROVIDERS: PCP Internal Medicine; Referring Provider Internal Medicine; Visit Provider Internal Medicine
DX: I26.94 Multiple subsegmental thrombotic pulmonary emboli without acute cor pulmonale (principal); I48.20 Chronic atrial fibrillation, unspecified
CPT/HCPCS: 36415; 85610

== ENCOUNTER → 2021-05-28 13:27 | Outpatient (CLI) | payer MEDICARE, OTHER, SELFPAY ==
[2020-03-30 22:41] VITALS: BMI 27.9
[2021-05-28 14:15] LABS: INR 1.4 (0.9-1.3); Prothrombin Time 15.4 SECONDS (10.1-12.7)
== END ==
PROVIDERS: PCP Internal Medicine; Referring Provider Internal Medicine; Visit Provider Internal Medicine
DX: Z79.899 Other long term (current) drug therapy (principal); I26.94 Multiple subsegmental thrombotic pulmonary emboli without acute cor pulmonale; I48.91 Unspecified atrial fibrillation
CPT/HCPCS: 36415; 85610

== ENCOUNTER 2021-09-06 14:51 | Observation (INO) | payer OTHER, SELFPAY ==
[2020-03-30 22:41] VITALS: BMI 27.9
[2021-09-06] VITALS (25 sets, daily range): BP systolic 160–233; BP diastolic 76–103; PULSE 60–75; RESP 10–21; TEMP 36.2–36.9; O2SAT 59–98; BMI 25.1
--- NOTE | 2021-09-06 15:12 | DI.RAD.S_ITS ---
PROCEDURE: XR CHEST 1V INDICATIONS: Possible stroke TECHNIQUE: One view of the chest was acquired. COMPARISON: [facility], CR, XR CHEST 1V, 02/26/2021, 7:35. [facility], CR, XR CHEST 2 VIEWS, 07/20/2021, 18:14. FINDINGS: Surgical changes and devices: Left chest wall AICD and median sternotomy wires are stable. Lungs and pleura: No acute lung opacities. Left basilar scarring is stable. No pleural effusions or pneumothorax. Mediastinum: Mediastinal contours appear normal. Heart is enlarged. Bones and chest wall: No suspicious bony lesions. Overlying soft tissues appear unremarkable. IMPRESSION: No acute cardiopulmonary disease process. Dictated by: Hope Vasquez MD, PhD on 09/06/2021 at 15:57 Approved by: Hope Vasquez MD, PhD on 09/06/2021 at 15:57
--- NOTE | 2021-09-06 15:12 | DI.CT.S_ITS ---
PROCEDURE: CT HEAD/BRAIN WO CON INDICATIONS: 5 days of expressive aphasia TECHNIQUE: Noncontrast 4.5 mm thick angled axial sections acquired from the foramen magnum to the vertex, with coronal and sagittal reformats. For radiation dose reduction, the following was used: automated exposure control, adjustment of mA and/or kV according to patient size. COMPARISON: [facility], CT, CT HEAD/BRAIN WO CON, 03/30/2020, 21:02. FINDINGS: Image quality: Excellent. CSF spaces: Basal cisterns are patent. No extra-axial fluid collections. The ventricles are symmetric in size and shape. Brain: No intracranial bleeds or masses. There is cerebral volume loss for age, with resultant ventricular and sulcal prominence. Encephalomalacia in the left cerebellum, unchanged. There are periventricular and deep white matter chronic small vessel ischemic changes. There is intracranial internal carotid artery atherosclerosis. Skull and face: Calvarium and visualized facial bones appear intact, without suspicious lesions. Left posterior fossa craniotomy change. Sinuses: Mucosal thickening in the spinal and lateral aspect of the right maxillary sinus. Opacification of a few bilateral mastoid air cells.. IMPRESSION: No acute intracranial abnormality. Dictated by: Willie Bran M.D. on 09/06/2021 at 15:36 Approved by: Willie Bran M.D. on 09/06/2021 at 15:39
[2021-09-06 15:30] LABS: INR 3.5 (0.9-1.3); Prothrombin Time 40.1 SECONDS (10.1-12.7)
[2021-09-06 15:33] LABS: PTT Partial Thromboplastin Tim 43 SECONDS (26.4-36.2)
[2021-09-06 15:35] LABS: Alanine Aminotransferase 46 IU/L (<50); Albumin 4.6 g/dL (3.5-5.0); Albumin Globulin Ratio 1.4 (1.0-2.8); Alkaline Phosphatase 66 U/L (38-126); Aspartate Aminotransferase 40 IU/L (17-59); BUN Creatinine Ratio 22.4 (6-22); Bilirubin Total 0.3 mg/dL (0.2-1.3); Blood Urea Nitrogen 28 mg/dL (9-20); Calcium 9.5 mg/dL (8.4-10.2); Carbon Dioxide 35 mmol/L (22-32); Chloride 103 mmol/L (98-107); Creatine Kinase 50 U/L (55-170); Globulin 3.3 g/dL (1.7-4.1); Glucose 127 mg/dL (80-110); HEMOLYSIS 22 (0-50); Potassium 4.8 mmol/L (3.4-5.1); Sodium 142 mmol/L (137-145); Total Protein 7.9 g/dL (6.3-8.2)
[2021-09-06 15:41] LABS: Add Manual Diff / Slide Review NO; Basophils Absolute Auto 0 /uL (0-100); Basophils Percent Auto 0.4 % (0-2); Eosinophils Absolute Auto 200 /uL (0-450); Eosinophils Percent Auto 3.5 % (2-4); Hematocrit 38.1 % (41-53); Hemoglobin 12.4 g/dL (13.5-17.5); Lymphocytes Absolute Auto 2100 /uL (1100-4500); Lymphocytes Percent Auto 29.7 % (25-40); Mean Corpuscular HGB Conc 32.4 % (30-36); Mean Corpuscular Hemoglobin 31.5 PG (26-34); Mean Corpuscular Volume 97.3 fL (80-100); Monocytes Absolute Auto 800 /uL (0-900); Monocytes Percent Auto 11.3 % (3-14); Neutrophils Absolute Auto 3900 /uL (1500-7000); Neutrophils Percent Auto 55.1 % (50-75); Platelet Count 209 X10^3/uL (150-400); Red Blood Cell Count 3.92 X10^6/uL (4.5-5.9); Red Cell Distribution Width 13.9 % (11.6-14.8); White Blood Cell Count 7.1 X10^3/uL (4.5-11.0)
[2021-09-06 15:46] LABS: Troponin I 0.017 ng/mL (0.01-0.034)
[2021-09-06 16:24] LABS: COVID19 -Nasal RAPID Negative (Negative)
--- NOTE | 2021-09-06 16:32 | ED.GENADULT ---
HPI - General Adult <Radhika Murphy PA-C - Last Filed: 09/06/21 20:30> General Chief complaint: Hypertension Stated complaint: High blood pressure at ENT appt Time Seen by Provider: 09/06/21 15:47 Source: patient Mode of arrival: Ambulatory History of Present Illness HPI narrative: 86-year-old male with past medical history hyperlipidemia, hypertension, chronic renal failure, type 2 diabetes, CAD presents to the ED with 3 days of word-finding problem, slow verbal response, increased somnolence. Patient was seen at his ENTs office earlier today for a hearing evaluation, when his blood pressure was high in the 180s systolic, patient was sent to the ED for further evaluation. Patient is accompanied by his , who states that patient has appeared more sleepy, has had slower speech response, some word-finding problems over the last 3 days. Patient denies fever, chills, chest pain, shortness of breath, cough, nausea, vomiting, abdominal pain, dysuria, flank pain, lightheadedness, dizziness, syncope. Patient is on Coumadin, clopidogrel. Related Data Home Medications Medication Instructions Recorded Confirmed allopurinol 100 mg tablet 200 mg PO DAILY 05/06/18 09/07/21 atorvastatin 40 mg tablet 40 mg PO DAILY 05/06/18 09/07/21 clopidogrel 75 mg tablet 75 mg PO DAILY 05/06/18 09/07/21 fluticasone propionate 50 50 mcg INTRANASAL BID 05/06/18 09/07/21 mcg/actuation nasal spray,suspension losartan 50 mg tablet 50 mg PO DAILY 05/06/18 09/07/21 metoprolol succinate 50 mg 50 mg PO DAILY 05/06/18 09/07/21 tablet,extended release 24 hr pantoprazole 40 mg tablet,delayed 40 mg PO DAILY 05/06/18 09/07/21 release tamsulosin 0.4 mg capsule 0.4 mg PO BEDTIME 05/06/18 09/07/21 metformin 500 mg tablet 1,000 mg PO DAILY 05/07/18 09/07/21 acetaminophen 300 mg-codeine 30 mg 1 tab PO Q6H PRN 03/31/20 09/07/21 tablet albuterol sulfate 90 mcg/actuation 1 puff INHALATION Q4H PRN 04/01/20 09/07/21 aerosol inhaler metformin 500 mg tablet 500 mg PO BEDTIME 05/08/21 09/07/21 Previous Rx's Medication Instructions Recorded gabapentin 600 mg tablet 300 mg PO TID #0 tab 04/02/20 spironolactone 25 mg tablet 12.5 mg PO DAILY #0 tab 04/02/20 Allergies Allergy/AdvReac Type Severity Reaction Status Date / Time tolmetin Allergy Severe Anaphylaxis Verified 05/08/21 16:28 Review of Systems <Radhika Murphy PA-C - Last Filed: 09/06/21 20:30> Review of Systems ROS Unobtainable: All systems reviewed & are unremarkable except as noted in HPI and below Constitutional Constitutional: Denies chills, Denies fatigue, Denies fever(s), Denies frequent falls, Denies lethargy and Denies weakness Comments: Increased somnolence Eyes Eyes: Denies change in vision, Denies eye discharge, Denies irritation and Denies loss of vision ENT Ears, Nose, Mouth, and Throat: Denies change in voice, Denies dizziness, Denies neck pain, Denies sore throat and Denies throat swelling Cardiovascular Cardiovascular: Denies chest pain, Denies irregular heart rhythm, Denies lightheadedness, Denies palpitations, Denies dyspnea, Denies dyspnea on exertion and Denies orthopnea Respiratory Respiratory: Denies cough, Denies dyspnea, Denies dyspnea on exertion and Denies wheezing Gastrointestinal Gastrointestinal: Denies abdominal pain, Denies change in bowel habits, Denies diarrhea, Denies nausea and Denies vomiting Genitourinary Genitourinary: Denies hematuria, Denies flank pain, Denies urinary incontinence and Denies urinary urgency Musculoskeletal Musculoskeletal: Denies back pain, Denies muscle weakness, Denies neck pain, Denies numbness and Denies tingling Integumentary/Breasts Skin/Breast: Denies pruritus, Denies erythema, Denies rash and Denies wounds Neurologic Neurologic: Denies behavioral changes, Denies confusion, Denies dizziness, Denies frequent falls, Denies loss of vision, Denies numbness, Denies tingling and Denies weakness Comments: Word-finding problems, slow verbal response to questions and conversation. Psychiatric Psychiatric: Denies anxiety, Denies behavioral changes, Denies confusion, Denies depression, Denies homicidal ideation and Denies suicidal ideation Endocrine Endocrine: Denies fatigue, Denies flushing and Denies palpitations Hematologic/Lymphatic Hematologic/Lymphatic: Denies easy bruising Allergic/Immunologic Allergic/Immunologic: Denies urticaria, Denies throat swelling and Denies wheezing Patient History <Radhika Murphy PA-C - Last Filed: 09/06/21 20:30> Medical History (Updated 09/07/21 @ 00:06 by Dona Oviedo 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 Thyroid nodule Surgical History H/O sinus surgery History of brain surgery History of cholecystectomy S/P CABG x 4 Social History household members: spouse Smoking Status: Never smoker alcohol intake: never Smoking Status: Never smoker alcohol intake frequency: 0-2 drinks per day Substance Use Type: does not use Exam <Radhika Murphy PA-C - Last Filed: 09/06/21 20:30> Initial Vital Signs Initial Vital Signs: Vital Signs Temperature 98.5 F 09/06/21 14:54 Pulse Rate 60 09/06/21 14:54 Respiratory Rate 16 09/06/21 14:54 Blood Pressure 220/99 H 09/06/21 14:54 Pulse Oximetry 97 09/06/21 14:54 Const General: cooperative, healthy appearing and comfortable [facility] Head: normal to inspection Throat: posterior oropharynx normal Eyes General: appearance normal, both eyes and all related structures Neck Neck: normal visual inspection Chest Chest: normal inspection of the chest Resp Effort & Inspection: normal respiratory effort Auscultation: clear to auscultation bilaterally Cardio Rate: regular rate Rhythm: regular rhythm GI Other: Abdomen is soft, nondistended, nontender to palpation. General: No CVA tenderness Skin General: no rashes or lesions noted Neuro General: patient alert, patient awake and patient oriented x3 Other: PERRLA. CN 1 through 12 intact bilaterally. Gait per baseline. Neg pronator drift. Negative rapid alternating movements. Neg [id number]. Strength and sensation intact. Full range of motion. Neurovascularly intact. Psych Appearance: grossly normal Mental Status: mental status grossly normal <Chinedu Christiansen DO - Last Filed: 09/07/21 07:01> Initial Vital Signs Initial Vital Signs: Vital Signs Temperature 98.5 F 09/06/21 14:54 Pulse Rate 60 09/06/21 14:54 Respiratory Rate 16 09/06/21 14:54 Blood Pressure 220/99 H 09/06/21 14:54 Pulse Oximetry 97 09/06/21 14:54 Course <Radhika Murphy PA-C - Last Filed: 09/06/21 20:30> Orders Ordered: Acetaminophen (Acetaminophen 325 Mg Tablet) 650 mg PO Q6HR PRN PRN Reason: Fever Acetaminophen/Codeine Phosphate (Codeine/Acetaminophen 30/300 Tablet) 1 tab PO Q6H PRN PRN Reason: Pain (Scale Score 1-3) Albuterol (Albuterol 2.5 Mg/3 Ml Neb (Adult)) 2.5 mg INH Q4H PRN PRN Reason: Shortness Of Breath Allopurinol (Allopurinol 100 Mg Tablet) 200 mg PO DAILY ANDREI Atorvastatin Calcium (Atorvastatin 20 Mg Tablet) 40 mg PO DAILY ANDREI Calcium Carbonate (Calcium Carbonate 500 Mg Tab) 1,000 mg PO Q4HR PRN PRN Reason: Dyspepsia Clopidogrel Bisulfate (Clopidogrel 75 Mg Tablet) 75 mg PO DAILY ANDREI Dextrose (Dextrose 50 % In Water 25 Gm/50 Ml Syringe) 25 gm IV PRN PRN PRN Reason: Hypoglycemia Gabapentin (Gabapentin 600 Mg Tablet) 300 mg PO TID ANDREI Sodium Chloride (Normal Saline 0.9%) 1,000 mls @ 60 mls/hr IV CONT ANDREI Last Admin: 09/06/21 22:04 Dose: 60 mls/hr Documented by: [email or web address] Nicardipine HCl 25 mg/ Sodium (Chloride) 250 mls @ 50 mls/hr IV TITRATE ANDREI; Protocol Last Titration: 09/06/21 22:17 Dose: 0 mg/hr, 0 mls/hr Documented by: [email or web address] Admin: 09/06/21 22:17 Dose: 5 mg/hr, 50 mls/hr Documented by: [email or web address] Insulin Human Lispro (Insulin Lispro 100 Unit/Ml 3ml Vial) 0 unit SUBCUT ACHS ANDREI; Protocol Last Admin: 09/06/21 22:13 Dose: Not Given Documented by: [email or web address] Magnesium Hydroxide (Magnesium Hydroxide 30 Ml Udc) 30 ml PO DAILY PRN PRN Reason: Constipation Metformin HCl (Metformin Hcl 500 Mg Tablet) 500 mg PO BEDTIME ANDREI Naloxone HCl (Naloxone 0.4 Mg/Ml Vial) 0.2 mg IV Q2MIN PRN PRN Reason: Opiate Reversal Naloxone HCl (Naloxone 0.4 Mg/Ml Vial) 0.2 mg IV Q2MIN PRN PRN Reason: Opiate Reversal Ondansetron HCl (Ondansetron 4 Mg/2 Ml Inj) 4 mg IV Q8HR PRN PRN Reason: Nausea And Vomiting Tamsulosin HCl (Tamsulosin 0.4 Mg Capsule) 0.4 mg PO BEDTIME ANDREI Discontinued Medications Enoxaparin Sodium (Enoxaparin 40 Mg/0.4 Ml Syringe) 40 mg SUBCUT DAILY ANDREI Labetalol HCl (Labetalol 20 Mg/4 Ml Syringe) 20 mg IV NOW ONE Stop: 09/06/21 16:38 Last Admin: 09/06/21 16:47 Dose: 20 mg Documented by: KULDIP Labetalol HCl (Labetalol 20 Mg/4 Ml Syringe) 20 mg IV NOW ONE Stop: 09/06/21 17:11 Last Admin: 09/06/21 18:53 Dose: 20 mg Documented by: DORENE Labetalol HCl (Labetalol 20 Mg/4 Ml Syringe) 10 mg IV Q4HR PRN PRN Reason: Hypertension Last Admin: 09/06/21 21:07 Dose: 10 mg Documented by: [email or web address] Vital Signs Vital signs: Vital Signs - 8 hr 09/06/21 14:54 09/06/21 16:04 09/06/21 16:15 Temperature 98.5 F Pulse Rate 60 68 68 Respiratory Rate 16 Blood Pressure 220/99 H Pulse Oximetry 97 98 96 09/06/21 16:28 09/06/21 16:30 09/06/21 16:45 Temperature Pulse Rate 70 69 67 Respiratory Rate Blood Pressure 233/103 H Pulse Oximetry 95 96 98 09/06/21 16:46 09/06/21 16:47 09/06/21 16:50 Temperature Pulse Rate 67 67 70 Respiratory Rate Blood Pressure 201/97 H 201/97 H 171/81 H Pulse Oximetry 98 97 09/06/21 17:00 09/06/21 17:08 09/06/21 17:42 Temperature Pulse Rate 69 70 Respiratory Rate Blood Pressure 191/90 H Pulse Oximetry 96 97 59 L 09/06/21 18:53 Temperature Pulse Rate 72 Respiratory Rate Blood Pressure 198/84 H Pulse Oximetry <Chinedu Christiansen, - Last Filed: 09/07/21 07:01> Orders Ordered: Acetaminophen (Acetaminophen 325 Mg Tablet) 650 mg PO Q6HR PRN PRN Reason: Fever Acetaminophen/Codeine Phosphate (Codeine/Acetaminophen 30/300 Tablet) 1 tab PO Q6H PRN PRN Reason: Pain (Scale Score 1-3) Albuterol (Albuterol 2.5 Mg/3 Ml Neb (Adult)) 2.5 mg INH Q4H PRN PRN Reason: Shortness Of Breath Allopurinol (Allopurinol 100 Mg Tablet) 200 mg PO DAILY ANDREI Atorvastatin Calcium (Atorvastatin 20 Mg Tablet) 40 mg PO DAILY ANDREI Calcium Carbonate (Calcium Carbonate 500 Mg Tab) 1,000 mg PO Q4HR PRN PRN Reason: Dyspepsia Clopidogrel Bisulfate (Clopidogrel 75 Mg Tablet) 75 mg PO DAILY ANDREI Dextrose (Dextrose 50 % In Water 25 Gm/50 Ml Syringe) 25 gm IV PRN PRN PRN Reason: Hypoglycemia Gabapentin (Gabapentin 600 Mg Tablet) 300 mg PO TID ANDREI Sodium Chloride (Normal Saline 0.9%) 1,000 mls @ 60 mls/hr IV CONT ANDREI Last Admin: 09/06/21 22:04 Dose: 60 mls/hr Documented by: [email or web address] Nicardipine HCl 25 mg/ Sodium (Chloride) 250 mls @ 50 mls/hr IV TITRATE ANDREI; Protocol Last Titration: 09/06/21 22:17 Dose: 0 mg/hr, 0 mls/hr Documented by: [email or web address] Admin: 09/06/21 22:17 Dose: 5 mg/hr, 50 mls/hr Documented by: [email or web address] Insulin Human Lispro (Insulin Lispro 100 Unit/Ml 3ml Vial) 0 unit SUBCUT ACHS ANDREI; Protocol Last Admin: 09/06/21 22:13 Dose: Not Given Documented by: [email or web address] Magnesium Hydroxide (Magnesium Hydroxide 30 Ml Udc) 30 ml PO DAILY PRN PRN Reason: Constipation Metformin HCl (Metformin Hcl 500 Mg Tablet) 500 mg PO BEDTIME ANDREI Naloxone HCl (Naloxone 0.4 Mg/Ml Vial) 0.2 mg IV Q2MIN PRN PRN Reason: Opiate Reversal Naloxone HCl (Naloxone 0.4 Mg/Ml Vial) 0.2 mg IV Q2MIN PRN PRN Reason: Opiate Reversal Ondansetron HCl (Ondansetron 4 Mg/2 Ml Inj) 4 mg IV Q8HR PRN PRN Reason: Nausea And Vomiting Tamsulosin HCl (Tamsulosin 0.4 Mg Capsule) 0.4 mg PO BEDTIME ANDREI Discontinued Medications Enoxaparin Sodium (Enoxaparin 40 Mg/0.4 Ml Syringe) 40 mg SUBCUT DAILY ANDREI Labetalol HCl (Labetalol 20 Mg/4 Ml Syringe) 20 mg IV NOW ONE Stop: 09/06/21 16:38 Last Admin: 09/06/21 16:47 Dose: 20 mg Documented by: KULDIP Labetalol HCl (Labetalol 20 Mg/4 Ml Syringe) 20 mg IV NOW ONE Stop: 09/06/21 17:11 Last Admin: 09/06/21 18:53 Dose: 20 mg Documented by: DORENE Labetalol HCl (Labetalol 20 Mg/4 Ml Syringe) 10 mg IV Q4HR PRN PRN Reason: Hypertension Last Admin: 09/06/21 21:07 Dose: 10 mg Documented by: [email or web address] Vital Signs Vital signs: Vital Signs - 8 hr 09/06/21 14:54 09/06/21 16:04 09/06/21 16:15 Temperature 98.5 F Pulse Rate 60 68 68 Respiratory Rate 16 Blood Pressure 220/99 H Pulse Oximetry 97 98 96 09/06/21 16:28 09/06/21 16:30 09/06/21 16:45 Temperature Pulse Rate 70 69 67 Respiratory Rate Blood Pressure 233/103 H Pulse Oximetry 95 96 98 09/06/21 16:46 09/06/21 16:47 09/06/21 16:50 Temperature Pulse Rate 67 67 70 Respiratory Rate Blood Pressure 201/97 H 201/97 H 171/81 H Pulse Oximetry 98 97 09/06/21 17:00 09/06/21 17:08 09/06/21 17:42 Temperature Pulse Rate 69 70 Respiratory Rate Blood Pressure 191/90 H Pulse Oximetry 96 97 59 L 09/06/21 18:53 Temperature Pulse Rate 72 Respiratory Rate Blood Pressure 198/84 H Pulse Oximetry Medical Decision Making <Radhika Murphy PA-C - Last Filed: 09/06/21 20:30> Medical Records Medical records reviewed: Yes I reviewed the patient's medical records. Lab Data Lab results reviewed: Yes I reviewed the patient's lab results. Lab results narrative: Labs within normal limits. UA negative for UTI Result diagrams: 09/06/21 14:25 09/07/21 04:39 Labs: Lab Results 09/06/21 09/06/21 09/06/21 Range/Units 14:25 14:25 14:25 WBC 7.1 (4.5-11.0) X10^3/uL RBC 3.92 L (4.5-5.9) X10^6/uL Hgb 12.4 L (13.5-17.5) g/dL Hct 38.1 L (41-53) % MCV 97.3 (80-100) fL MCH 31.5 (26-34) PG MCHC 32.4 (30-36) % RDW 13.9 (11.6-14.8) % Plt Count 209 (150-400) X10^3/uL Neut % (Auto) 55.1 (50-75) % Lymph % (Auto) 29.7 (25-40) % [place] % (Auto) 11.3 (3-14) % Eos % (Auto) 3.5 (2-4) % Baso % (Auto) 0.4 (0-2) % Neut # (Auto) 3900 (2940-2101) /uL Lymph # (Auto) 2100 (3884-2755) /uL [place] # (Auto) 800 (0-900) /uL Eos # (Auto) 200 (0-450) /uL Baso # (Auto) 0 (0-100) /uL PT 40.1 H (10.1-12.7) SECONDS INR 3.5 H (0.9-1.3) APTT 43 H D (26.4-36.2) SECONDS Sodium 142 (137-145) mmol/L Potassium 4.8 (3.4-5.1) mmol/L Chloride 103 (98-107) mmol/L Carbon Dioxide 35 H (22-32) mmol/L BUN 28 H (9-20) mg/dL Creatinine 1.25 (0.66-1.25) mg/dL Estimated GFR 55.0 L (>60) mL/min BUN/Creatinine Ratio 22.4 H (6-22) Glucose 127 H (80-110) mg/dL Calcium 9.5 (8.4-10.2) mg/dL Total Bilirubin 0.3 (0.2-1.3) mg/dL AST 40 (17-59) IU/L ALT 46 (<50) IU/L Alkaline Phosphatase 66 (38-126) U/L Total Creatine Kinase 50 L (55-170) U/L CK-MB (CK-2) TNP CK-MB (CK-2) Rel Index TNP Troponin I 0.017 (0.01-0.034) ng/mL Total Protein 7.9 (6.3-8.2) g/dL Albumin 4.6 (3.5-5.0) g/dL Globulin 3.3 (1.7-4.1) g/dL Albumin/Globulin Ratio 1.4 (1.0-2.8) U Opiates 300ng/mL cut (Negative) Ur Oxycodone Screen (Negative) Urine Methadone Screen (Negative) Ur Barbiturates Screen (Negative) U Tricyclic Antidepress (Negative) Ur Phencyclidine Scrn (Negative) Ur Amphetamines Screen (Negative) U Methamphetamines Scrn (Negative) Ur MDMA Scrn (Ecstasy) (Negative) U Benzodiazepines Scrn (Negative) Urine Cocaine Screen (Negative) U Marijuana (THC) Screen (Negative) SARS-CoV-2 (PCR) (Negative) 09/06/21 09/06/21 Range/Units 15:54 17:20 WBC (4.5-11.0) X10^3/uL RBC (4.5-5.9) X10^6/uL Hgb (13.5-17.5) g/dL Hct (41-53) % MCV (80-100) fL MCH (26-34) PG MCHC (30-36) % RDW (11.6-14.8) % Plt Count (150-400) X10^3/uL Neut % (Auto) (50-75) % Lymph % (Auto) (25-40) % [place] % (Auto) (3-14) % Eos % (Auto) (2-4) % Baso % (Auto) (0-2) % Neut # (Auto) (4581-6125) /uL Lymph # (Auto) (7072-8277) /uL [place] # (Auto) (0-900) /uL Eos # (Auto) (0-450) /uL Baso # (Auto) (0-100) /uL PT (10.1-12.7) SECONDS INR (0.9-1.3) APTT (26.4-36.2) SECONDS Sodium (137-145) mmol/L Potassium (3.4-5.1) mmol/L Chloride (98-107) mmol/L Carbon Dioxide (22-32) mmol/L BUN (9-20) mg/dL Creatinine (0.66-1.25) mg/dL Estimated GFR (>60) mL/min BUN/Creatinine Ratio (6-22) Glucose (80-110) mg/dL Calcium (8.4-10.2) mg/dL Total Bilirubin (0.2-1.3) mg/dL AST (17-59) IU/L ALT (<50) IU/L Alkaline Phosphatase (38-126) U/L Total Creatine Kinase (55-170) U/L CK-MB (CK-2) CK-MB (CK-2) Rel Index Troponin I (0.01-0.034) ng/mL Total Protein (6.3-8.2) g/dL Albumin (3.5-5.0) g/dL Globulin (1.7-4.1) g/dL Albumin/Globulin Ratio (1.0-2.8) U Opiates 300ng/mL cut Positive H (Negative) Ur Oxycodone Screen Negative (Negative) Urine Methadone Screen Negative (Negative) Ur Barbiturates Screen Negative (Negative) U Tricyclic Antidepress Negative (Negative) Ur Phencyclidine Scrn Negative (Negative) Ur Amphetamines Screen Negative (Negative) U Methamphetamines Scrn Negative (Negative) Ur MDMA Scrn (Ecstasy) Negative (Negative) U Benzodiazepines Scrn Negative (Negative) Urine Cocaine Screen Negative (Negative) U Marijuana (THC) Screen Negative (Negative) SARS-CoV-2 (PCR) Negative (Negative) Urine Dip Bedside Urine Glucose Negative Bedside Urine Bilirubin - Negative Bedside Urine Ketone - Negative Urine Specific [place] 1.025 Bedside Urine Occult Blood - Negative Bedside Urine pH 6.0 Bedside Urine Protein +/- 15 Bedside Urine Urobilinogen - Negative Bedside Urine Nitrite - Negative Bedside Urine Leukocytes - Negative Esterase Point of care testing: Urine Dip Bedside Urine Glucose Negative Bedside Urine Bilirubin - Negative Bedside Urine Ketone - Negative Urine Specific [place] 1.025 Bedside Urine Occult Blood - Negative Bedside Urine pH 6.0 Bedside Urine Protein +/- 15 Bedside Urine Urobilinogen - Negative Bedside Urine Nitrite - Negative Bedside Urine Leukocytes - Negative Esterase Imaging Data CT scan - head: Radiologist's Impression: PROCEDURE:? CT HEAD/BRAIN WO CON ? INDICATIONS:? 5 days of expressive aphasia ? TECHNIQUE:? Noncontrast 4.5 mm thick angled axial sections acquired from the foramen magnum to the vertex, with coronal and sagittal reformats.? For radiation dose reduction, the following was used:? automated exposure control, adjustment of mA and/or kV according to patient size.? ? COMPARISON:? [facility], CT, CT HEAD/BRAIN WO CON, 03/30/2020, 21:02. ? FINDINGS:? Image quality:? Excellent.? ? CSF spaces:? Basal cisterns are patent.? No extra-axial fluid collections.? The ventricles are symmetric in size and shape.? ? Brain:? No intracranial bleeds or masses.? There is cerebral volume loss for age, with resultant ventricular and sulcal prominence.? Encephalomalacia in the left cerebellum, unchanged.? There are periventricular and deep white matter chronic small vessel ischemic changes.? There is intracranial internal carotid artery atherosclerosis.? ? Skull and face:? Calvarium and visualized facial bones appear intact, without suspicious lesions.? Left posterior fossa craniotomy change.? ? Sinuses:? Mucosal thickening in the spinal and lateral aspect of the right maxillary sinus.? Opacification of a few bilateral mastoid air cells..? ? IMPRESSION:? No acute intracranial abnormality. ? ? Dictated by: Willie Bran M.D. on 09/06/2021 at 15:36 ? ? Approved by: Willie Bran M.D. on 09/06/2021 at 15:39 ? Chest x-ray: Radiologist's Impression: PROCEDURE:? XR CHEST 1V ? INDICATIONS:? Possible stroke ? TECHNIQUE:? One view of the chest was acquired.? ? COMPARISON:? [facility], CR, XR CHEST 1V, 02/26/2021, 7:35.? [facility], CR, XR CHEST 2 VIEWS, 07/20/2021, 18:14. ? FINDINGS:? ? Surgical changes and devices:? Left chest wall AICD and median sternotomy wires are stable. ? Lungs and pleura:? No acute lung opacities.? Left basilar scarring is stable.? No pleural effusions or pneumothorax.? ? Mediastinum:? Mediastinal contours appear normal.? Heart is enlarged. ? Bones and chest wall:? No suspicious bony lesions.? Overlying soft tissues appear unremarkable.? ? IMPRESSION:? No acute cardiopulmonary disease process. ? ? Dictated by: Hope Vasquez MD, PhD on 09/06/2021 at 15:57 ? ? Approved by: Hope Vasquez MD, PhD on 09/06/2021 at 15:57 ? ECG Data Interpretation: Atrial sensed ventricular paced rhythm. No acute ST-T changes. MDM Narrative Medical decision making narrative: 86-year-old male with past medical history hyperlipidemia, hypertension, chronic renal failure, type 2 diabetes, CAD presents to the ED with 3 days of word-finding problem, slow verbal response. Concern for CVA versus infectious causes versus hypertensive emergency versus hypertensive urgency. Will obtain labs, coags, UA, troponin, chest x-ray, COVID-19 test, CT head. Will reassess. Patient's CT head is negative for acute findings. UA neg for UTI. Patient continues to be hypertensive in the ED with systolic in the 230s. Will give labetalol. Will likely admit for blood pressure control, further stroke workup. Hospitalist Georgie Oviedo consulted, patient admitted for further stroke workup and blood pressure control. <Chinedu Christiansen, DO - Last Filed: 09/07/21 07:01> Lab Data Labs: Lab Results 09/06/21 09/06/21 09/06/21 Range/Units 14:25 14:25 14:25 WBC 7.1 (4.5-11.0) X10^3/uL RBC 3.92 L (4.5-5.9) X10^6/uL Hgb 12.4 L (13.5-17.5) g/dL Hct 38.1 L (41-53) % MCV 97.3 (80-100) fL MCH 31.5 (26-34) PG MCHC 32.4 (30-36) % RDW 13.9 (11.6-14.8) % Plt Count 209 (150-400) X10^3/uL Neut % (Auto) 55.1 (50-75) % Lymph % (Auto) 29.7 (25-40) % [place] % (Auto) 11.3 (3-14) % Eos % (Auto) 3.5 (2-4) % Baso % (Auto) 0.4 (0-2) % Neut # (Auto) 3900 (6648-2963) /uL Lymph # (Auto) 2100 (0499-8944) /uL [place] # (Auto) 800 (0-900) /uL Eos # (Auto) 200 (0-450) /uL Baso # (Auto) 0 (0-100) /uL PT 40.1 H (10.1-12.7) SECONDS INR 3.5 H (0.9-1.3) APTT 43 H D (26.4-36.2) SECONDS Sodium 142 (137-145) mmol/L Potassium 4.8 (3.4-5.1) mmol/L Chloride 103 (98-107) mmol/L Carbon Dioxide 35 H (22-32) mmol/L BUN 28 H (9-20) mg/dL Creatinine 1.25 (0.66-1.25) mg/dL Estimated GFR 55.0 L (>60) mL/min BUN/Creatinine Ratio 22.4 H (6-22) Glucose 127 H (80-110) mg/dL Calcium 9.5 (8.4-10.2) mg/dL Total Bilirubin 0.3 (0.2-1.3) mg/dL AST 40 (17-59) IU/L ALT 46 (<50) IU/L Alkaline Phosphatase 66 (38-126) U/L Total Creatine Kinase 50 L (55-170) U/L CK-MB (CK-2) TNP CK-MB (CK-2) Rel Index TNP Troponin I 0.017 (0.01-0.034) ng/mL Total Protein 7.9 (6.3-8.2) g/dL Albumin 4.6 (3.5-5.0) g/dL Globulin 3.3 (1.7-4.1) g/dL Albumin/Globulin Ratio 1.4 (1.0-2.8) U Opiates 300ng/mL cut (Negative) Ur Oxycodone Screen (Negative) Urine Methadone Screen (Negative) Ur Barbiturates Screen (Negative) U Tricyclic Antidepress (Negative) Ur Phencyclidine Scrn (Negative) Ur Amphetamines Screen (Negative) U Methamphetamines Scrn (Negative) Ur MDMA Scrn (Ecstasy) (Negative) U Benzodiazepines Scrn (Negative) Urine Cocaine Screen (Negative) U Marijuana (THC) Screen (Negative) SARS-CoV-2 (PCR) (Negative) 09/06/21 09/06/21 Range/Units 15:54 17:20 WBC (4.5-11.0) X10^3/uL RBC (4.5-5.9) X10^6/uL Hgb (13.5-17.5) g/dL Hct (41-53) % MCV (80-100) fL MCH (26-34) PG MCHC (30-36) % RDW (11.6-14.8) % Plt Count (150-400) X10^3/uL Neut % (Auto) (50-75) % Lymph % (Auto) (25-40) % [place] % (Auto) (3-14) % Eos % (Auto) (2-4) % Baso % (Auto) (0-2) % Neut # (Auto) (0265-2514) /uL Lymph # (Auto) (6474-0272) /uL [place] # (Auto) (0-900) /uL Eos # (Auto) (0-450) /uL Baso # (Auto) (0-100) /uL PT (10.1-12.7) SECONDS INR (0.9-1.3) APTT (26.4-36.2) SECONDS Sodium (137-145) mmol/L Potassium (3.4-5.1) mmol/L Chloride (98-107) mmol/L Carbon Dioxide (22-32) mmol/L BUN (9-20) mg/dL Creatinine (0.66-1.25) mg/dL Estimated GFR (>60) mL/min BUN/Creatinine Ratio (6-22) Glucose (80-110) mg/dL Calcium (8.4-10.2) mg/dL Total Bilirubin (0.2-1.3) mg/dL AST (17-59) IU/L ALT (<50) IU/L Alkaline Phosphatase (38-126) U/L Total Creatine Kinase (55-170) U/L CK-MB (CK-2) CK-MB (CK-2) Rel Index Troponin I (0.01-0.034) ng/mL Total Protein (6.3-8.2) g/dL Albumin (3.5-5.0) g/dL Globulin (1.7-4.1) g/dL Albumin/Globulin Ratio (1.0-2.8) U Opiates 300ng/mL cut Positive H (Negative) Ur Oxycodone Screen Negative (Negative) Urine Methadone Screen Negative (Negative) Ur Barbiturates Screen Negative (Negative) U Tricyclic Antidepress Negative (Negative) Ur Phencyclidine Scrn Negative (Negative) Ur Amphetamines Screen Negative (Negative) U Methamphetamines Scrn Negative (Negative) Ur MDMA Scrn (Ecstasy) Negative (Negative) U Benzodiazepines Scrn Negative (Negative) Urine Cocaine Screen Negative (Negative) U Marijuana (THC) Screen Negative (Negative) SARS-CoV-2 (PCR) Negative (Negative) Urine Dip Bedside Urine Glucose Negative Bedside Urine Bilirubin - Negative Bedside Urine Ketone - Negative Urine Specific [place] 1.025 Bedside Urine Occult Blood - Negative Bedside Urine pH 6.0 Bedside Urine Protein +/- 15 Bedside Urine Urobilinogen - Negative Bedside Urine Nitrite - Negative Bedside Urine Leukocytes - Negative Esterase Point of care testing: Urine Dip Bedside Urine Glucose Negative Bedside Urine Bilirubin - Negative Bedside Urine Ketone - Negative Urine Specific [place] 1.025 Bedside Urine Occult Blood - Negative Bedside Urine pH 6.0 Bedside Urine Protein +/- 15 Bedside Urine Urobilinogen - Negative Bedside Urine Nitrite - Negative Bedside Urine Leukocytes - Negative Esterase Discharge Plan Departure Patient Disposition: Admitted As Inpatient Clinical Impression: Hypertension Admit Date/Time: 09/06/21 19:30 Admit Provider: Dona Oviedo <Chinedu Christiansen, DO - Last Filed: 09/07/21 07:01> Cosign ED Attending Cosignature Attestation: Dr Christiansen Co-Sign Statement: I was available for consultation during this patient's emergency department visit. This chart is signed by myself for administrative purposes only. I did not have direct contact with this patient during this visit. They were seen independently by the APC.
[2021-09-06] MEDS: LABETALOL 20 MG/4 ML SYRINGE IV ×2 (16:47→18:53)
--- NOTE | 2021-09-06 18:55 | PC.NURSE ---
pt states he has been very tired for the last 3 days.
--- NOTE | 2021-09-06 19:06 | PC.NURSE ---
per dr grewal gave only 10mg iv labetalol.
[2021-09-06 19:12] LABS: Ur Creatinine Normal (Normal); Ur Specific Gravity Normal (Normal); Urine pH Normal (Normal)
[2021-09-06 19:13] LABS: UR Morphine/Opiate cutoff 300 Positive (Negative); Urine Amphetamines Negative (Negative); Urine Barbiturates Negative (Negative); Urine Benzodiazepines Negative (Negative); Urine Cocaine Negative (Negative); Urine MDMA Negative (Negative); Urine Methadone Negative (Negative); Urine Methamphetamines Negative (Negative); Urine Oxycodone Negative (Negative); Urine Phencyclidine Negative (Negative); Urine Tetrahydrocannabinol Negative (Negative); Urine Tricyclic Antidepressant Negative (Negative)
--- NOTE | 2021-09-06 19:57 | P.HP_ITS ---
History of Present Illness History of Present Illness Date Patient Seen: 09/06/21 Time Patient Seen: 19:57 Chief complaint: High blood pressure at ENT appt Narrative: ?Mr. Winston Houston is an 86-year-old male with a history significant for NE, systolic heart failure, hypertension, hyperlipidemia, chronic kidney disease stage 3, diabetes type 2 and trigeminal neuralgia who presents to the emergency department for 3 days of word-finding problem, slow verbal response.? Patient was seen at his ENTs office earlier today for a hearing evaluation, when his blood pressure was high in the 180s systolic, patient was sent to the ED for further evaluation.? Patient is accompanied by his in ED, who stated that patient has appeared more sleepy, has had slower speech response, some word- finding problems over the last 3 days.? Patient denies fever, chills, chest pain, shortness of breath, cough, nausea, vomiting, abdominal pain, dysuria, flank pain, lightheadedness, dizziness, syncope.? Patient is on Coumadin, clopidogrel. Upon admit is not at bedside, patient appears alert and orientated but has continued difficulty finding words, slow or no verbal response. Patient continues to deny chest pain, shortness of breath, weakness, and does not appear to be aware of word-finding difficulty. He is resting comfortably in the bed in no distress at this time. Following admit as reported by Iveth MICHEL, ICU, after having a conversation with the patients . The verbalized that her 's delayed speech and thought process has actually been going on from anywhere from months to years and that only the increased sleepiness has been over the past 3 days. But that his meditation has been gradually progressively worsening over a long period of time, to such extent that she believes he has been suffering from the early stages of dementia. Patient's vitals upon admit temp 98.5?, BP 191/90, HR 70, R 16, O2 saturation 97% on room air. Patient's blood pressures have been labile in the ED from 233/103 to 201/97, patient has been given 2 doses of labetalol 20 mg. Patient's HGB 12.4, HCT 38.1, bicarb 35, BUN 28, glucose 127, GFR 55 all within keeping of the patient's CKD. Patient's PT 40.1, INR 3.5, PTT 43 are elevated. Patient's initial troponin was negative at 0.017. Patient's head CT was negative for any acute intracranial processes. Patient's chest x-ray demonstrated no acute cardiopulmonary processes. Patient being admitted for neurological deficit/ CVA rule out, and hypertensive urgency/emergency. Patient's blood pressures continued to be labile, requiring ICU admission, tele side panel hanger consult, and nicardipine drip. Patient was unable to provide family history based on neurological deficit. Patient History Medical History (Updated 09/07/21 @ 00:06 by Dona Oviedo [facility]) Bleeding ulcer Chronic anticoagulation Chronic gout Chronic kidney disease (CKD) stage G3a/A1, moderately decreased glomerular filtration rate (GFR) between 45-59 mL/min/1.73 square meter and albuminuria creatinine ratio less than 30 mg/g Diabetes type 2, controlled Heart attack Hyperlipidemia Hypertension Left bundle branch block Presence of combination internal cardiac defibrillator (ICD) and pacemaker 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 Thyroid nodule Surgical History H/O sinus surgery History of brain surgery History of cholecystectomy S/P CABG x 4 Family & Social History Social History: household members spouse Tobacco & Substance use: Smoking Status Never smoker alcohol intake never alcohol intake frequency 0-2 drinks per day Substance Use Type does not use Meds Home Medications and Allergies Home Medications Medication Instructions Recorded Confirmed Type allopurinol 100 mg tablet 200 mg PO DAILY 05/06/18 04/01/20 History atorvastatin 40 mg tablet 40 mg PO DAILY 05/06/18 03/31/20 History clopidogrel 75 mg tablet 75 mg PO DAILY 05/06/18 03/31/20 History fluticasone propionate 50 50 mcg INTRANASAL BID 05/06/18 03/31/20 History mcg/actuation nasal spray,suspension losartan 50 mg tablet 50 mg PO DAILY 05/06/18 04/01/20 History metoprolol succinate 50 mg 50 mg PO DAILY 05/06/18 04/01/20 History tablet,extended release 24 hr pantoprazole 40 mg tablet,delayed 40 mg PO DAILY 05/06/18 03/31/20 History release tamsulosin 0.4 mg capsule 0.4 mg PO BEDTIME 05/06/18 03/31/20 History metformin 500 mg tablet 1,000 mg PO DAILY 05/07/18 05/08/21 History acetaminophen 300 mg-codeine 30 mg 1 tab PO Q6H PRN 03/31/20 04/01/20 History tablet albuterol sulfate 90 mcg/actuation 1 puff INHALATION Q4H PRN 04/01/20 04/01/20 History aerosol inhaler gabapentin 600 mg tablet 300 mg PO TID #0 tab 04/02/20 04/01/20 Rx spironolactone 25 mg tablet 12.5 mg PO DAILY #0 tab 04/02/20 03/31/20 Rx metformin 500 mg tablet 500 mg PO BEDTIME 05/08/21 05/08/21 History Allergies Allergy/AdvReac Type Severity Reaction Status Date / Time tolmetin Allergy Severe Anaphylaxis Verified 05/08/21 16:28 Review of Systems Review of Systems Narrative: All 12 point systems reviewed with the patient and are negative except otherwise documented. Please note that patient's ROS may be inaccurate due to neurological deficit. Exam Vital Signs (past 8 hours): - 09/06/21 14:54 09/06/21 16:04 09/06/21 16:15 Temperature 98.5 F Pulse Rate 60 68 68 Respiratory Rate 16 Blood Pressure 220/99 H Pulse Oximetry 97 98 96 09/06/21 16:28 09/06/21 16:30 09/06/21 16:45 Temperature Pulse Rate 70 69 67 Respiratory Rate Blood Pressure 233/103 H Pulse Oximetry 95 96 98 09/06/21 16:46 09/06/21 16:47 09/06/21 16:50 Temperature Pulse Rate 67 67 70 Respiratory Rate Blood Pressure 201/97 H 201/97 H 171/81 H Pulse Oximetry 98 97 09/06/21 17:00 09/06/21 17:08 09/06/21 17:42 Temperature Pulse Rate 69 70 Respiratory Rate Blood Pressure 191/90 H Pulse Oximetry 96 97 59 L 09/06/21 18:53 Temperature Pulse Rate 72 Respiratory Rate Blood Pressure 198/84 H Pulse Oximetry Oxygen Delivery Method Room Air Narrative Exam Narrative: General: Patient is a well-developed, well-nourished elderly male in no distress at this time. HEENT: Normocephalic, atraumatic, extraocular muscles intact, oral pharynx is clear and mucous membranes are dry. Neck is supple and symmetric, trachea is midline, no adenopathy, no thyroid enlargement, nontender, no masses palpated. Negative for JVD Chest: Normal AP diameter and contour without kyphoscoliosis, no nasal flaring, retractions, or tachypneic labored breathing. Patient has a pacemaker and defibrillator left upper chest area. Lungs: Auscultation of all lung baltazar are coarse, clear without adventitious sounds, wheezes, rhonchi, or rales. Cardio: regular rate and rhythm without murmur, rubs, or gallops, no carotid bruit, no cardiac pulsations present. Abdomen: Soft nontender, negative for organomegaly, or masses. Bowel sounds are present in all 4 quadrants without guarding or rebound, no CVA tenderness. Musculoskeletal: Muscle strength and tone appear equal within normal limits, no deformity, crepitus, effusions, cyanosis, clubbing present. Plus one bilateral nonpitting edema to lower extremities, range of motion intact radial and pedal pulses are normal. Skin: Warm very dry, scaly, and intact without rashes, ulcerations or petechiae. Neuro: Alert and orientated x3, sensation to touch intact, no gross deficits noted of cranial nerves. Psych: Patient has a well-kept appearance, appropriate affect, mental status attitude thought context and judgment are appropriate for age, though patient is struggling with difficulty answering questions due to difficulty in word finding and delayed, slow responses. Objective Labs Result Diagrams: 09/06/21 14:25 09/06/21 14:25 Labs: Laboratory Results - last 24 hr 09/06/21 09/06/21 09/06/21 14:25 14:25 14:25 WBC 7.1 RBC 3.92 L Hgb 12.4 L Hct 38.1 L MCV 97.3 MCH 31.5 MCHC 32.4 RDW 13.9 Plt Count 209 Neut % (Auto) 55.1 Lymph % (Auto) 29.7 [place] % (Auto) 11.3 Eos % (Auto) 3.5 Baso % (Auto) 0.4 Neut # (Auto) 3900 Lymph # (Auto) 2100 [place] # (Auto) 800 Eos # (Auto) 200 Baso # (Auto) 0 PT 40.1 H INR 3.5 H APTT 43 H D Sodium 142 Potassium 4.8 Chloride 103 Carbon Dioxide 35 H BUN 28 H Creatinine 1.25 Estimated GFR 55.0 L BUN/Creatinine Ratio 22.4 H Glucose 127 H Calcium 9.5 Total Bilirubin 0.3 AST 40 ALT 46 Alkaline Phosphatase 66 Total Creatine Kinase 50 L CK-MB (CK-2) TNP CK-MB (CK-2) Rel Index TNP Troponin I 0.017 Total Protein 7.9 Albumin 4.6 Globulin 3.3 Albumin/Globulin Ratio 1.4 U Opiates 300ng/mL cut Ur Oxycodone Screen Urine Methadone Screen Ur Barbiturates Screen U Tricyclic Antidepress Ur Phencyclidine Scrn Ur Amphetamines Screen U Methamphetamines Scrn Ur MDMA Scrn (Ecstasy) U Benzodiazepines Scrn Urine Cocaine Screen U Marijuana (THC) Screen SARS-CoV-2 (PCR) 09/06/21 09/06/21 15:54 17:20 WBC RBC Hgb Hct MCV MCH MCHC RDW Plt Count Neut % (Auto) Lymph % (Auto) [place] % (Auto) Eos % (Auto) Baso % (Auto) Neut # (Auto) Lymph # (Auto) [place] # (Auto) Eos # (Auto) Baso # (Auto) PT INR APTT Sodium Potassium Chloride Carbon Dioxide BUN Creatinine Estimated GFR BUN/Creatinine Ratio Glucose Calcium Total Bilirubin AST ALT Alkaline Phosphatase Total Creatine Kinase CK-MB (CK-2) CK-MB (CK-2) Rel Index Troponin I Total Protein Albumin Globulin Albumin/Globulin Ratio U Opiates 300ng/mL cut Positive H Ur Oxycodone Screen Negative Urine Methadone Screen Negative Ur Barbiturates Screen Negative U Tricyclic Antidepress Negative Ur Phencyclidine Scrn Negative Ur Amphetamines Screen Negative U Methamphetamines Scrn Negative Ur MDMA Scrn (Ecstasy) Negative U Benzodiazepines Scrn Negative Urine Cocaine Screen Negative U Marijuana (THC) Screen Negative SARS-CoV-2 (PCR) Negative Assessment & Plan Assessment & Plan narrative: ?Mr. Winston Houston is an 86-year-old male with a history significant for NE, systolic heart failure with reduced ejection fraction secondary to CAD s/p CABG x4, hypertension, hyperlipidemia, BPH, gout, asthma chronic kidney disease stage 3, diabetes type 2 and trigeminal neuralgia who presents to the emergency department for 3 days of word-finding problem, slow verbal response .?Patient is accompanied by his , who states that patient has appeared more sleepy, has had slower speech response, some word-finding problems over the last 3 days.? Patient demonstrated labile BP. Being admitted for CVA rule out with hypertensive urgency/emergency. 1. Neurological deficit (word finding, slowed verbal response) vs Cognitive deficit (early dementia), acute, present on admission -suspect this to be a CVA. NIH:3 upon admit-no NIH done in ED. 4 hours after admit the ICU nurse completed NIH: 0 -she was also advised by the patient's spouse at that time that the delayed speech, word-finding difficulty has actually been present over several years. And that the believes that he has been in the beginning stages of dementia for some time. She only brought him in because of his increased sleepiness over the past 3 days was the only change from his base line. -based on this information I believe this still to be a CVA bed in the setting early dementia. -TRAILER SECTIONS ASSEMBLER consult regarding goals of care, and assessment asked to patient's spouse ability to care for him at home. -patient admitted under stroke protocol -aspiration precaution, fall precautions, NIH and neuro assessment as needed -patient's INR was supratherapeutic at 3.5 will hold patient's Coumadin at this time. -patient is already on ASA, Lipitor, Plavix -MR ordered for tomorrow-may be unable to complete MR due to pacemaker/defibrillator in place. -PT, OT, speech therapy evaluations ordered 2. Hypertension, essential, in the setting of hypertensive urgency/emergency, acute on chronic, present on admission. Stable. -BP is on this visit 233/103, 201/97, 191/90, 198/84, 225/110, 220/99 -patient was given 40 mg of labetalol in the ED, due to labile BP patient moved to the ICU for nicardipine drip- will continue to monitor and assess -tell side panel hanger consult -Hold metoprolol, losartan 50 mg daily. -Hold spironolactone. 3. Chronic kidney disease stage G3a/A1 moderate, chronic, present on admission. Stable -Patient was born with a solitary kidney.? -Initial creatinine:1.25 Baseline creatinine is variable and appears to be 1.2- 1.5.? -Avoid nephrotoxic agents and renally dose medications.? -Hold losartan -Continue to monitor creatinine daily. 4. Systolic heart failure with reduced ejection fraction, secondary to CAD s/p CABG x4, chronic, present on admission. Stable. -Does not represent CHF exacerbation. Patient denies shortness of breath or weight gain -Echo: 08/19/20 Dr. Blackmon EF 30+/-5%, moderate global hypokinesis with akinesis of the mid to apical septum, grossly, normal right ventricular size and function, no significant valvular abnormalities. ? -Continue to monitor strict I&O's and daily weights. 5. BPH, chronic, present on admission -continue allopurinol 6. Non insulin-dependent Diabetes mellitus type 2, chronic, present on admission. Stable.? -Hemoglobin A1c ordered, admit glucose 127 -Hold metformin 1000 mg twice daily. -patient admitted under diabetic protocol? -Continue ACHS blood glucose checks and low-dose correctional scale insulin. -Continue carbohydrate consistent diet.? 7. Hyperlipidemia, related to type 2 diabetes, chronic, present on admission. St able -Continue atorvastatin 8. Asthma, chronic, present on admission -continue albuterol 9. Trigeminal nerve neuralgia, chronic, present on admission -continue gabapentin Code status:?DNR per patient & Surrogate decisionmaker: .?? VTE prophylaxis:? Lovenox SCDs Disposition: Patient admitted for observation, expected length of stay less than 2 midnights I have utilized all available immediate resources to obtain, update, or review the patient's current medications. I confirmed that the patient's advanced care plan is present, Code status is documented and/or surrogate decision maker is listed in the patient's medical record. Time Spent With Patient Critical Care time: I spent a total of [] minutes of critical care time on this patient's care today; this time is exclusive of procedural time. Scores NIHSS Level of Conciousness: Alert, keenly responsive Ask month/age: Answers one question correctly, intubated follow commands Open/close eyes, close hand: Performs both tasks correctly Best gaze horizontal: Normal Visual baltazar: No visual loss Facial palsy: Normal symetrical movement Left arm drift: No drift for full 10 sec Right arm drift: No drift for full 10 sec Left leg drift: No drift for full 5 sec Right leg drift: No drift for full 5 sec Limb ataxia: Absent Sensory on face/arms/legs: Normal, no sensory loss Best language: Mild to moderate, slurs some words Dysarthria: Mild to mod,some slurring Extinction or inattention: No abnormality Total NIH Stroke scale score: 3
--- NOTE | 2021-09-06 20:07 | PC.NURSE ---
This PRESIDENT [employer] was made aware that pt was hungry and had been requesting a snack. Went to offer pt snack and upon finding him asleep and unsuccessfully gently trying to rouse him, another PRESIDENT [employer] CEO [employer] was made aware of his request and went on to feed him when he awoke.
[2021-09-06 20:32] LABS: Hemoglobin A1C% w Est Avg Glu 7.4 % (4.0-6.0)
[2021-09-06 20:41] LABS: NT-proBNP (BNP-Adult 18+) 710 pg/mL (<450)
[2021-09-06 20:45] LABS: Troponin I 0.023 ng/mL (0.01-0.034)
[2021-09-06 20:59] LABS: Cholesterol 139 mg/dL (140-199); HDL Cholesterol 35 mg/dL (40-60); LDL Cholesterol Calculated 63 mg/dL (<100); Magnesium 1.4 mg/dL (1.6-2.3); Triglycerides 205 mg/dL (35-150)
[2021-09-06] MEDS: LABETALOL 20 MG/4 ML SYRINGE 10 MG IV (21:07)
[2021-09-06 21:12] LABS: Thyroid Stimulating Hormone 1.98 uIU/mL (0.47-4.68)
[2021-09-06] MEDS: SODIUM CHLORIDE 0.9% 1,000 ML 60 ML IV (22:04)
--- NOTE | 2021-09-06 22:16 | PM.CN.EICU ---
History of Present Illness Consult details Chief complaint: High blood pressure at ENT appt :: This patient was seen in the Intensive Care Unit via real time interactive two-way audiovisual telecommunication. Narrative: 86 y.o. male w/ PMHx of LLD, HTN, hypothyroidism, CKD3, trigeminal neuralgia on gabapentin, T2DM, HFrEF (LVEF 30% in 08/2020)and CAD/CABG who presented with 3 days of increased word finding difficulty and slowing. He was referred from ENT clinic to the ED for a SBP of 220 mm Hg. NCHCT did now show any acute abnormality. In the ED and immediately post-ICU admission, he has received multiple doses of labetalol w/ minimal response. Of note, INR is 3.5; there is no documentation or obvious indication for warfarin therapy. He is supposedly on chronic Plavix. 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 Thyroid nodule Surgical History H/O sinus surgery History of brain surgery History of cholecystectomy S/P CABG x 4 Social History household members: spouse Smoking Status: Never smoker alcohol intake: never Current Medications Current Medications Medications: Home Medications allopurinol 100 mg tablet 200 mg PO DAILY 05/06/18 [History Confirmed 04/01/20] atorvastatin 40 mg tablet 40 mg PO DAILY 05/06/18 [History Confirmed 03/31/20] clopidogrel 75 mg tablet 75 mg PO DAILY 05/06/18 [History Confirmed 03/31/20] fluticasone propionate 50 mcg/actuation nasal spray,suspension 50 mcg INTRANASAL BID 05/06/18 [History Confirmed 03/31/20] losartan 50 mg tablet 50 mg PO DAILY 05/06/18 [History Confirmed 04/01/20] metoprolol succinate 50 mg tablet,extended release 24 hr 50 mg PO DAILY 05/06/18 [History Confirmed 04/01/20] pantoprazole 40 mg tablet,delayed release 40 mg PO DAILY 05/06/18 [History Confirmed 03/31/20] tamsulosin 0.4 mg capsule 0.4 mg PO BEDTIME 05/06/18 [History Confirmed 03/31/20] metformin 500 mg tablet 1,000 mg PO DAILY 05/07/18 [History Confirmed 05/08/21] acetaminophen 300 mg-codeine 30 mg tablet 1 tab PO Q6H PRN 03/31/20 [History Confirmed 04/01/20] albuterol sulfate 90 mcg/actuation aerosol inhaler 1 puff INHALATION Q4H PRN 04/01/20 [History Confirmed 04/01/20] gabapentin 600 mg tablet 300 mg PO TID #0 tab 04/02/20 [Rx Confirmed 04/01/20] spironolactone 25 mg tablet 12.5 mg PO DAILY #0 tab 04/02/20 [Rx Confirmed 03/31/20] metformin 500 mg tablet 500 mg PO BEDTIME 05/08/21 [History Confirmed 05/08/21] Visit Medications (administered) Generic Name Dose Route Start Last Admin Trade Name Freq PRN Reason Stop Dose Admin Sodium Chloride 1,000 mls @ 60 mls/hr 09/06/21 20:00 09/06/21 22:04 Normal Saline 0.9% IV 60 mls/hr CONT ANDREI Administration Insulin Human Lispro 0 unit 09/06/21 21:00 09/06/21 22:13 Insulin Lispro 100 Unit/Ml 3ml Vial SUBCUT Not Given ACHS ANDREI Protocol Exam Vital Signs (past 8 hours): - 09/06/21 14:54 09/06/21 16:04 09/06/21 16:15 Temperature 98.5 F Pulse Rate 60 68 68 Respiratory Rate 16 Blood Pressure 220/99 H Pulse Oximetry 97 98 96 09/06/21 16:28 09/06/21 16:30 09/06/21 16:45 Temperature Pulse Rate 70 69 67 Respiratory Rate Blood Pressure 233/103 H Pulse Oximetry 95 96 98 09/06/21 16:46 09/06/21 16:47 09/06/21 16:50 Temperature Pulse Rate 67 67 70 Respiratory Rate Blood Pressure 201/97 H 201/97 H 171/81 H Pulse Oximetry 98 97 09/06/21 17:00 09/06/21 17:08 09/06/21 17:42 Temperature Pulse Rate 69 70 Respiratory Rate Blood Pressure 191/90 H Pulse Oximetry 96 97 59 L 09/06/21 18:53 09/06/21 19:49 09/06/21 21:07 Temperature 97.1 F L Pulse Rate 72 68 72 Respiratory Rate 10 L Blood Pressure 198/84 H 225/98 H 202/97 H Pulse Oximetry 96 09/06/21 21:42 Temperature Pulse Rate 74 Respiratory Rate Blood Pressure 203/95 H Pulse Oximetry Oxygen Delivery Method Room Air Resp Effort & Inspection: normal respiratory effort Neuro Other: mild R facial effacement? Objective Labs Result Diagrams: 09/06/21 14:25 09/06/21 14:25 Labs: Laboratory Results - last 24 hr 09/06/21 09/06/21 09/06/21 14:25 14:25 14:25 WBC 7.1 RBC 3.92 L Hgb 12.4 L Hct 38.1 L MCV 97.3 MCH 31.5 MCHC 32.4 RDW 13.9 Plt Count 209 Neut % (Auto) 55.1 Lymph % (Auto) 29.7 [place] % (Auto) 11.3 Eos % (Auto) 3.5 Baso % (Auto) 0.4 Neut # (Auto) 3900 Lymph # (Auto) 2100 [place] # (Auto) 800 Eos # (Auto) 200 Baso # (Auto) 0 PT 40.1 H INR 3.5 H APTT 43 H D Sodium 142 Potassium 4.8 Chloride 103 Carbon Dioxide 35 H BUN 28 H Creatinine 1.25 Estimated GFR 55.0 L BUN/Creatinine Ratio 22.4 H Glucose 127 H Hemoglobin A1c Calcium 9.5 Magnesium Total Bilirubin 0.3 AST 40 ALT 46 Alkaline Phosphatase 66 Total Creatine Kinase 50 L CK-MB (CK-2) TNP CK-MB (CK-2) Rel Index TNP Troponin I 0.017 NT-Pro-B Natriuret Pep Total Protein 7.9 Albumin 4.6 Globulin 3.3 Albumin/Globulin Ratio 1.4 Triglycerides Cholesterol LDL Cholesterol, Calc HDL Cholesterol TSH U Opiates 300ng/mL cut Ur Oxycodone Screen Urine Methadone Screen Ur Barbiturates Screen U Tricyclic Antidepress Ur Phencyclidine Scrn Ur Amphetamines Screen U Methamphetamines Scrn Ur MDMA Scrn (Ecstasy) U Benzodiazepines Scrn Urine Cocaine Screen U Marijuana (THC) Screen SARS-CoV-2 (PCR) 09/06/21 09/06/21 09/06/21 15:54 17:20 20:12 WBC RBC Hgb Hct MCV MCH MCHC RDW Plt Count Neut % (Auto) Lymph % (Auto) [place] % (Auto) Eos % (Auto) Baso % (Auto) Neut # (Auto) Lymph # (Auto) [place] # (Auto) Eos # (Auto) Baso # (Auto) PT INR APTT Sodium Potassium Chloride Carbon Dioxide BUN Creatinine Estimated GFR BUN/Creatinine Ratio Glucose Hemoglobin A1c 7.4 H Calcium Magnesium Total Bilirubin AST ALT Alkaline Phosphatase Total Creatine Kinase CK-MB (CK-2) CK-MB (CK-2) Rel Index Troponin I NT-Pro-B Natriuret Pep Total Protein Albumin Globulin Albumin/Globulin Ratio Triglycerides Cholesterol LDL Cholesterol, Calc HDL Cholesterol TSH U Opiates 300ng/mL cut Positive H Ur Oxycodone Screen Negative Urine Methadone Screen Negative Ur Barbiturates Screen Negative U Tricyclic Antidepress Negative Ur Phencyclidine Scrn Negative Ur Amphetamines Screen Negative U Methamphetamines Scrn Negative Ur MDMA Scrn (Ecstasy) Negative U Benzodiazepines Scrn Negative Urine Cocaine Screen Negative U Marijuana (THC) Screen Negative SARS-CoV-2 (PCR) Negative 09/06/21 09/06/21 09/06/21 20:12 20:12 20:12 WBC RBC Hgb Hct MCV MCH MCHC RDW Plt Count Neut % (Auto) Lymph % (Auto) [place] % (Auto) Eos % (Auto) Baso % (Auto) Neut # (Auto) Lymph # (Auto) [place] # (Auto) Eos # (Auto) Baso # (Auto) PT INR APTT Sodium Potassium Chloride Carbon Dioxide BUN Creatinine Estimated GFR BUN/Creatinine Ratio Glucose Hemoglobin A1c Calcium Magnesium 1.4 L Total Bilirubin AST ALT Alkaline Phosphatase Total Creatine Kinase CK-MB (CK-2) CK-MB (CK-2) Rel Index Troponin I NT-Pro-B Natriuret Pep Total Protein Albumin Globulin Albumin/Globulin Ratio Triglycerides 205 H Cholesterol 139 L LDL Cholesterol, Calc 63 HDL Cholesterol 35 L TSH 1.98 U Opiates 300ng/mL cut Ur Oxycodone Screen Urine Methadone Screen Ur Barbiturates Screen U Tricyclic Antidepress Ur Phencyclidine Scrn Ur Amphetamines Screen U Methamphetamines Scrn Ur MDMA Scrn (Ecstasy) U Benzodiazepines Scrn Urine Cocaine Screen U Marijuana (THC) Screen SARS-CoV-2 (PCR) 09/06/21 09/06/21 20:12 20:12 WBC RBC Hgb Hct MCV MCH MCHC RDW Plt Count Neut % (Auto) Lymph % (Auto) [place] % (Auto) Eos % (Auto) Baso % (Auto) Neut # (Auto) Lymph # (Auto) [place] # (Auto) Eos # (Auto) Baso # (Auto) PT INR APTT Sodium Potassium Chloride Carbon Dioxide BUN Creatinine Estimated GFR BUN/Creatinine Ratio Glucose Hemoglobin A1c Calcium Magnesium Total Bilirubin AST ALT Alkaline Phosphatase Total Creatine Kinase CK-MB (CK-2) CK-MB (CK-2) Rel Index Troponin I 0.023 NT-Pro-B Natriuret Pep 710 H Total Protein Albumin Globulin Albumin/Globulin Ratio Triglycerides Cholesterol LDL Cholesterol, Calc HDL Cholesterol TSH U Opiates 300ng/mL cut Ur Oxycodone Screen Urine Methadone Screen Ur Barbiturates Screen U Tricyclic Antidepress Ur Phencyclidine Scrn Ur Amphetamines Screen U Methamphetamines Scrn Ur MDMA Scrn (Ecstasy) U Benzodiazepines Scrn Urine Cocaine Screen U Marijuana (THC) Screen SARS-CoV-2 (PCR) Assessment & Plan Assessment and plan (1) Altered mental status: Problem details: Constellation of symptoms is extremely concerning for a subacute ischemic CVA which, if present, probably occurred 48-72H. Given this time frame, he is not a candidate for a mechanical thrombectomy. Further, CKD is strong relative contraindication to a head CTA to eval for LVO. Given these two facts, will opt for conservative rx. Qualifiers: Altered mental status type: unspecified Qualified Code(s): R41.82 - Altered mental status, unspecified Status: Acute Plan: -Agree with MRI TIFFANIE if PPM allows. If PPM is not MRI compatible, recommend CTA if eGFR allows -Continue statin -Hold antiplatelet rx given elevated INR -See problem #2 for BP mgmt (2) Hypertensive urgency: Status: Acute Plan: -Given elevated INR as well as probable subacute nature of the potential CVA, will opt for somewhat tighter BP control than is usually recommended < 24H of an ischemic CVA that is not thrombolyzed-->start nicardipine and titrate to SBP 170-190 mmHg for initial 12-24 H of hospitalization pending further investigation (especially the MRI) (3) Chronic systolic (congestive) heart failure: Status: Acute Plan: -Follow (4) Stage 3 chronic kidney disease: Status: Acute Plan: -Follow (5) Elevated INR: Status: Acute Plan: -Unclear etiology, follow closely
[2021-09-06] MEDS: NICARDIPINE 25 MG in SODIUM CHLORIDE 0.9% 240 ML 50 ML IV (22:17)
[2021-09-07] VITALS (38 sets, daily range): BP systolic 150–204; BP diastolic 71–100; PULSE 63–78; RESP 10–30; TEMP 36.5–36.6; O2SAT 93–100
[2021-09-07 00:53] LABS: Appearance Urine UA CLEAR; Bacteria Urine Occasional (0-1); Bilirubin Urine UA NEGATIVE (NEGATIVE); Color Urine UA YELLOW; Glucose Urine UA NEGATIVE (Negative); Hyaline Casts Urine 0-1/LPF; Ketones Urine UA NEGATIVE (NEGATIVE); Leukocyte Esterase Urine UA NEGATIVE (NEGATIVE); Nitrite Urine UA NEGATIVE (Negative); Occult Blood Urine UA TRACE-INTACT (Negative); Protein Urine UA 2+ (Negative); RBC Urine 0-1/HPF (0-5/HPF); Specific Gravity Urine UA 1.025 (1.000-1.035); Squamous Epithelial Cell Urine 0-1 /HPF (0-5/HPF); Urobilinogen Urine UA 0.2 E.U./dL (0.2); WBC Urine None Seen (0-5/HPF)
[2021-09-07 00:54] LABS: Culture Indicated Urine Cult Not Indicated
[2021-09-07 05:22] LABS: INR 3.3 (0.9-1.3); Prothrombin Time 37.5 SECONDS (10.1-12.7)
[2021-09-07 05:24] LABS: PTT Partial Thromboplastin Tim 40 SECONDS (26.4-36.2)
[2021-09-07 05:26] LABS: Alanine Aminotransferase 36 IU/L (<50); Albumin 3.9 g/dL (3.5-5.0); Albumin Globulin Ratio 1.4 (1.0-2.8); Alkaline Phosphatase 64 U/L (38-126); Aspartate Aminotransferase 31 IU/L (17-59); BUN Creatinine Ratio 22.4 (6-22); Bilirubin Total 0.3 mg/dL (0.2-1.3); Blood Urea Nitrogen 22 mg/dL (9-20); Calcium 8.8 mg/dL (8.4-10.2); Carbon Dioxide 29 mmol/L (22-32); Chloride 105 mmol/L (98-107); Estimated Glomerular Filt Rate > 60.0 mL/min (>60); Globulin 2.8 g/dL (1.7-4.1); Glucose 154 mg/dL (80-110); HEMOLYSIS < 15 (0-50); Sodium 139 mmol/L (137-145); Total Protein 6.7 g/dL (6.3-8.2)
[2021-09-07 05:38] LABS: Troponin I 0.017 ng/mL (0.01-0.034)
[2021-09-07] MEDS: INSULIN LISPRO 100 UNIT/ML 3ML VIAL SUBCUT ×3 (09:17→17:55)
[2021-09-07] MEDS: CLOPIDOGREL 75 MG TABLET PO (09:21)
[2021-09-07] MEDS: allopurinoL 100 MG TABLET 200 MG PO (09:21)
[2021-09-07] MEDS: SPIRONOLACTONE 25 MG TABLET 12.5 MG PO (09:21)
[2021-09-07] MEDS: METOPROLOL ER 50 MG TABLET PO (09:24)
[2021-09-07] MEDS: LOSARTAN 50 MG TABLET PO ×2 (09:24→14:52)
[2021-09-07] MEDS: ATORVASTATIN 20 MG TABLET 40 MG PO (09:27)
[2021-09-07] MEDS: MAGNESIUM CHLORIDE 64 MG TABLET 128 MG PO (09:30)
[2021-09-07] MEDS: GABAPENTIN 600 MG TABLET 300 MG PO ×3 (09:30→21:45)
--- NOTE | 2021-09-07 10:18 | DI.CT.S_ITS ---
PROCEDURE: CT ANGIO HEAD AND NECK INDICATIONS: Possible CVA, unable to do MRI TECHNIQUE: Pre-contrast 4.5 mm thick sections acquired from the foramen magnum to the vertex. After the administration of intravenous contrast, 1 mm thick sections acquired from the aortic arch through the [place]. Post-contrast 4.5 mm thick sections then re-acquired from the foramen magnum to the vertex. 3-dimensional hsfuggy-wboqrvwgp-yqtnjvrgue (MIP) and/or volume rendering reformats were acquired of the central intracranial vasculature and neck separately. COMPARISON: [facility], MR, MR HEAD/BRAIN WO/W CON, 06/24/2020, 15:12. [facility], CT, CT HEAD/BRAIN WO CON, 09/06/2021, 15:22. [facility], CT, CT HEAD/BRAIN WO CON, 03/30/2020, 21:02. FINDINGS: Image quality: Excellent. BRAIN: CSF spaces: Ventricles are normal in size and shape. Basal cisterns are patent. No extra-axial fluid collections. Brain: No midline shift. No intracranial bleeds or masses. Jasmine-white matter interface appears intact. Note is made of a cavum septum pellucidum. When discovered in isolation, this is considered to be a developmental variant of no clinical consequence. Note is made of age-appropriate brain parenchymal volume loss and chronic small vessel ischemic changes. Skull and face: Calvarium and facial bones appear intact, without suspicious lesions. Orbits appear normal. Sinuses: Moderate mucosal thickening is seen within the right maxillary sinus. Mild mucosal thickening is seen elsewhere within the paranasal sinuses. Bilateral antrectomy has been performed. HEAD CT ANGIOGRAPHY: Anterior circulation: Intracranial internal carotid arteries are normal in size and flow. The flow within the paired anterior cerebral arteries is normal and symmetric. The flow within the middle cerebral arteries is normal and symmetric. The anterior communicating artery is seen. No aneurysms are seen. Posterior circulation: Focal calcification is seen involving the right V4 segment, with approximately 50% narrowing, as on series 12, image 164. The left V4 segment is within normal limits. There is a normal appearing basilar artery. Flow within the posterior cerebral arteries is normal and symmetric. No aneurysms are seen. NECK CT ANGIOGRAPHY: Carotid system: The great vessels demonstrate a conventional anatomy as they arise from the aortic arch. The origins of the common carotid arteries appear patent. The common carotid arteries demonstrate normal caliber and courses. The bifurcation regions are both widely patent. The internal carotid arteries demonstrate normal calibers and courses. Posterior circulation: There are mild narrowings seen involving the origins of the vertebral arteries. The extracranial vertebral arteries are within normal limits, with the left vertebral artery slightly dominant to the right. Soft tissues: Visualized neck soft tissues demonstrate no suspicious abnormalities. A left-sided pacer device is seen. Calcified mediastinal and left perihilar lymph nodes can be seen. Bones: No suspicious bony lesions. Visualized cervical spine appears normally aligned. Sternotomy wires are partially seen. Moderate to prominent cervical spine degenerative changes are seen. IMPRESSION: No judy, acute intracranial abnormality can be seen. No acute intracranial hemorrhage is seen. In this patient who cannot have an MRI, please consider short-term follow-up noncontrast head CT for evaluation for stroke. No significant intracranial arterial abnormality is seen. A focal calcification with approximately 50% narrowing can be seen involving the right V4 segment. Within the arteries of the neck, no hemodynamically significant stenosis can be seen. However, mild stenosis can be seen involving origins of the vertebral arteries. 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 Any quantitative measurements of stenosis were performed using NASCET criteria. Dictated by: Yan Marin M.D. on 09/07/2021 at 15:17 Approved by: Yan Marin M.D. on 09/07/2021 at 15:24
--- NOTE | 2021-09-07 11:27 | OT.IPNOTE ---
Able to initiate OT eval however pt's BP high while resting and seated 208/93 and 202 /92, nursing notified and to complete OT eval when BP more appropriate. NO charge
--- NOTE | 2021-09-07 11:55 | PT.IPTN ---
Current Diagnoses Hypertensive urgency (09/06/21) Chronic systolic (congestive) heart failure (09/06/21) Chronic kidney disease, stage 3 unspecified (09/06/21) Altered mental status, unspecified (09/06/21) Abnormal coagulation profile (09/06/21) Physical Therapy Treatment Note M3 PT-IP Subjective Start: 09/07/21 13:03 Freq: NEEDED Status: Active Protocol: Document 09/07/21 11:55 AB (Rec: 09/07/21 13:08 AB [id number]) Subjective Physical Therapy Visit Type Type Administrative Note Notes Checked in with pt and nurse in room. Nurse just checked pt's BP: 203/93 and stated that the doctor will wait until current meds took effect before deciding if needing any adjustments. talked to pt regarding PT eval order and holding off for this morning due to high BP. pt agreed to answer PT's questions and able to provide home set up and PLOF. checked pt's BP again after obtaining information and BP continues to be high: 203/93. will check in pm.
--- NOTE | 2021-09-07 14:44 | PM.PN.1 ---
Subjective Subjective Date Patient Seen: 09/07/21 Time Patient Seen: 14:45 Interval history: Remains hypertensive today, near 200 systolic. No current new neurological symptoms however. Will continue to titrate medications today. Denies chest pain, nausea, vomiting, or shortness of breath. Exam Vital Signs (past 8 hours): - 09/07/21 08:00 09/07/21 09:15 09/07/21 09:24 Temperature 97.9 F Pulse Rate 74 71 71 Respiratory Rate 17 18 Blood Pressure 182/89 H 184/84 H 184/84 H Pulse Oximetry 96 95 09/07/21 10:11 09/07/21 10:13 09/07/21 11:23 Temperature Pulse Rate 69 69 63 Respiratory Rate 17 16 Blood Pressure 191/88 H 191/88 H 202/92 H Pulse Oximetry 93 100 09/07/21 12:00 09/07/21 12:01 09/07/21 13:41 Temperature 97.8 F Pulse Rate 67 66 Respiratory Rate 24 12 Blood Pressure 203/93 H 198/90 H Pulse Oximetry 98 98 99 Oxygen Delivery Method Room Air Oxygen Flow Rate 0 Narrative Exam Narrative: General:? Patient is a well-developed, well-nourished elderly male in no distress at this time. HEENT:? Normocephalic, atraumatic, extraocular muscles intact, oral pharynx is clear and mucous membranes are dry.? Neck is supple and symmetric, trachea is midline, no adenopathy, no thyroid enlargement, nontender, no masses palpated.? Negative for JVD Chest:? Normal AP diameter and contour without kyphoscoliosis, no nasal flaring, retractions, or tachypneic labored breathing.? Patient has a pacemaker and defibrillator left upper chest area. Lungs:? Auscultation of all lung baltazar are coarse, clear without adventitious sounds, wheezes, rhonchi, or rales. Cardio:? regular rate and rhythm without murmur, rubs, or gallops, no carotid bruit, no cardiac pulsations present. Abdomen:? Soft nontender, negative for organomegaly, or masses.? Bowel sounds are present in all 4 quadrants without guarding or rebound, no CVA tenderness. Musculoskeletal:? Muscle strength and tone appear equal within normal limits, no deformity, crepitus, effusions, cyanosis, clubbing present.? Plus one bilateral nonpitting edema to lower extremities,? range of motion intact radial and pedal pulses are normal. Skin:? Warm very dry, scaly, and intact without rashes, ulcerations or petechiae.? Neuro:? Alert and orientated x3, sensation to touch intact, no gross deficits noted of cranial nerves. though he does have some facial asymmetry without facial droop, probably chronic. Psych:? Patient has a well-kept appearance, appropriate affect, mental status attitude thought context and judgment are appropriate for age, though patient is struggling with difficulty answering questions due to difficulty in word finding and delayed, slow responses. Objective Labs Result Diagrams: 09/06/21 14:25 09/07/21 04:39 Labs: Laboratory Results - last 24 hr 09/06/21 09/06/21 09/06/21 14:25 14:25 14:25 WBC 7.1 RBC 3.92 L Hgb 12.4 L Hct 38.1 L MCV 97.3 MCH 31.5 MCHC 32.4 RDW 13.9 Plt Count 209 Neut % (Auto) 55.1 Lymph % (Auto) 29.7 [place] % (Auto) 11.3 Eos % (Auto) 3.5 Baso % (Auto) 0.4 Neut # (Auto) 3900 Lymph # (Auto) 2100 [place] # (Auto) 800 Eos # (Auto) 200 Baso # (Auto) 0 PT 40.1 H INR 3.5 H APTT 43 H D Sodium 142 Potassium 4.8 Chloride 103 Carbon Dioxide 35 H BUN 28 H Creatinine 1.25 Estimated GFR 55.0 L BUN/Creatinine Ratio 22.4 H Glucose 127 H Hemoglobin A1c Calcium 9.5 Magnesium Total Bilirubin 0.3 AST 40 ALT 46 Alkaline Phosphatase 66 Total Creatine Kinase 50 L CK-MB (CK-2) TNP CK-MB (CK-2) Rel Index TNP Troponin I 0.017 NT-Pro-B Natriuret Pep Total Protein 7.9 Albumin 4.6 Globulin 3.3 Albumin/Globulin Ratio 1.4 Triglycerides Cholesterol LDL Cholesterol, Calc HDL Cholesterol TSH Urine Color Urine Appearance Urine pH Ur Specific Donna Urine Protein Urine Glucose (UA) Urine Ketones Urine Occult Blood Urine Nitrate Urine Bilirubin Urine Urobilinogen Ur Leukocyte Esterase Urine RBC Urine WBC Ur Squamous Epith Cells Urine Bacteria Hyaline Casts Ur Culture Indicated? Nasal Screen MRSA (PCR) U Opiates 300ng/mL cut Ur Oxycodone Screen Urine Methadone Screen Ur Barbiturates Screen U Tricyclic Antidepress Ur Phencyclidine Scrn Ur Amphetamines Screen U Methamphetamines Scrn Ur MDMA Scrn (Ecstasy) U Benzodiazepines Scrn Urine Cocaine Screen U Marijuana (THC) Screen SARS-CoV-2 (PCR) 09/06/21 09/06/21 09/06/21 15:54 17:20 20:12 WBC RBC Hgb Hct MCV MCH MCHC RDW Plt Count Neut % (Auto) Lymph % (Auto) [place] % (Auto) Eos % (Auto) Baso % (Auto) Neut # (Auto) Lymph # (Auto) [place] # (Auto) Eos # (Auto) Baso # (Auto) PT INR APTT Sodium Potassium Chloride Carbon Dioxide BUN Creatinine Estimated GFR BUN/Creatinine Ratio Glucose Hemoglobin A1c 7.4 H Calcium Magnesium Total Bilirubin AST ALT Alkaline Phosphatase Total Creatine Kinase CK-MB (CK-2) CK-MB (CK-2) Rel Index Troponin I NT-Pro-B Natriuret Pep Total Protein Albumin Globulin Albumin/Globulin Ratio Triglycerides Cholesterol LDL Cholesterol, Calc HDL Cholesterol TSH Urine Color Urine Appearance Urine pH Ur Specific Donna Urine Protein Urine Glucose (UA) Urine Ketones Urine Occult Blood Urine Nitrate Urine Bilirubin Urine Urobilinogen Ur Leukocyte Esterase Urine RBC Urine WBC Ur Squamous Epith Cells Urine Bacteria Hyaline Casts Ur Culture Indicated? Nasal Screen MRSA (PCR) U Opiates 300ng/mL cut Positive H Ur Oxycodone Screen Negative Urine Methadone Screen Negative Ur Barbiturates Screen Negative U Tricyclic Antidepress Negative Ur Phencyclidine Scrn Negative Ur Amphetamines Screen Negative U Methamphetamines Scrn Negative Ur MDMA Scrn (Ecstasy) Negative U Benzodiazepines Scrn Negative Urine Cocaine Screen Negative U Marijuana (THC) Screen Negative SARS-CoV-2 (PCR) Negative 09/06/21 09/06/21 09/06/21 20:12 20:12 20:12 WBC RBC Hgb Hct MCV MCH MCHC RDW Plt Count Neut % (Auto) Lymph % (Auto) [place] % (Auto) Eos % (Auto) Baso % (Auto) Neut # (Auto) Lymph # (Auto) [place] # (Auto) Eos # (Auto) Baso # (Auto) PT INR APTT Sodium Potassium Chloride Carbon Dioxide BUN Creatinine Estimated GFR BUN/Creatinine Ratio Glucose Hemoglobin A1c Calcium Magnesium 1.4 L Total Bilirubin AST ALT Alkaline Phosphatase Total Creatine Kinase CK-MB (CK-2) CK-MB (CK-2) Rel Index Troponin I NT-Pro-B Natriuret Pep Total Protein Albumin Globulin Albumin/Globulin Ratio Triglycerides 205 H Cholesterol 139 L LDL Cholesterol, Calc 63 HDL Cholesterol 35 L TSH 1.98 Urine Color Urine Appearance Urine pH Ur Specific Donna Urine Protein Urine Glucose (UA) Urine Ketones Urine Occult Blood Urine Nitrate Urine Bilirubin Urine Urobilinogen Ur Leukocyte Esterase Urine RBC Urine WBC Ur Squamous Epith Cells Urine Bacteria Hyaline Casts Ur Culture Indicated? Nasal Screen MRSA (PCR) U Opiates 300ng/mL cut Ur Oxycodone Screen Urine Methadone Screen Ur Barbiturates Screen U Tricyclic Antidepress Ur Phencyclidine Scrn Ur Amphetamines Screen U Methamphetamines Scrn Ur MDMA Scrn (Ecstasy) U Benzodiazepines Scrn Urine Cocaine Screen U Marijuana (THC) Screen SARS-CoV-2 (PCR) 09/06/21 09/06/21 09/06/21 20:12 20:12 23:30 WBC RBC Hgb Hct MCV MCH MCHC RDW Plt Count Neut % (Auto) Lymph % (Auto) [place] % (Auto) Eos % (Auto) Baso % (Auto) Neut # (Auto) Lymph # (Auto) [place] # (Auto) Eos # (Auto) Baso # (Auto) PT INR APTT Sodium Potassium Chloride Carbon Dioxide BUN Creatinine Estimated GFR BUN/Creatinine Ratio Glucose Hemoglobin A1c Calcium Magnesium Total Bilirubin AST ALT Alkaline Phosphatase Total Creatine Kinase CK-MB (CK-2) CK-MB (CK-2) Rel Index Troponin I 0.023 NT-Pro-B Natriuret Pep 710 H Total Protein Albumin Globulin Albumin/Globulin Ratio Triglycerides Cholesterol LDL Cholesterol, Calc HDL Cholesterol TSH Urine Color Urine Appearance Urine pH Ur Specific Donna Urine Protein Urine Glucose (UA) Urine Ketones Urine Occult Blood Urine Nitrate Urine Bilirubin Urine Urobilinogen Ur Leukocyte Esterase Urine RBC Urine WBC Ur Squamous Epith Cells Urine Bacteria Hyaline Casts Ur Culture Indicated? Nasal Screen MRSA (PCR) Negative for mrsa U Opiates 300ng/mL cut Ur Oxycodone Screen Urine Methadone Screen Ur Barbiturates Screen U Tricyclic Antidepress Ur Phencyclidine Scrn Ur Amphetamines Screen U Methamphetamines Scrn Ur MDMA Scrn (Ecstasy) U Benzodiazepines Scrn Urine Cocaine Screen U Marijuana (THC) Screen SARS-CoV-2 (PCR) 02/09/07/21 09/07/21 23:59 04:39 04:39 WBC RBC Hgb Hct MCV MCH MCHC RDW Plt Count Neut % (Auto) Lymph % (Auto) [place] % (Auto) Eos % (Auto) Baso % (Auto) Neut # (Auto) Lymph # (Auto) [place] # (Auto) Eos # (Auto) Baso # (Auto) PT 37.5 H INR 3.3 H APTT 40 H Sodium 139 Potassium 4.0 Chloride 105 Carbon Dioxide 29 BUN 22 H Creatinine 0.98 Estimated GFR > 60.0 BUN/Creatinine Ratio 22.4 H Glucose 154 H Hemoglobin A1c Calcium 8.8 Magnesium Total Bilirubin 0.3 AST 31 ALT 36 Alkaline Phosphatase 64 Total Creatine Kinase CK-MB (CK-2) CK-MB (CK-2) Rel Index Troponin I 0.017 NT-Pro-B Natriuret Pep Total Protein 6.7 Albumin 3.9 Globulin 2.8 Albumin/Globulin Ratio 1.4 Triglycerides Cholesterol LDL Cholesterol, Calc HDL Cholesterol TSH Urine Color Yellow Urine Appearance Clear Urine pH 5.0 Ur Specific Donna 1.025 Urine Protein 2+ H Urine Glucose (UA) Negative Urine Ketones Negative Urine Occult Blood Trace-intact Urine Nitrate Negative Urine Bilirubin Negative Urine Urobilinogen 0.2 Ur Leukocyte Esterase Negative Urine RBC 0-1/hpf Urine WBC None seen Ur Squamous Epith Cells 0-1 /hpf Urine Bacteria Occasional (0-1) Hyaline Casts 0-1/lpf Ur Culture Indicated? Cult not indicated Nasal Screen MRSA (PCR) U Opiates 300ng/mL cut Ur Oxycodone Screen Urine Methadone Screen Ur Barbiturates Screen U Tricyclic Antidepress Ur Phencyclidine Scrn Ur Amphetamines Screen U Methamphetamines Scrn Ur MDMA Scrn (Ecstasy) U Benzodiazepines Scrn Urine Cocaine Screen U Marijuana (THC) Screen SARS-CoV-2 (PCR) [facility] Medical History (Updated 09/07/21 @ 00:06 by TATA Akhtar) Bleeding ulcer Chronic anticoagulation Chronic gout Chronic kidney disease (CKD) stage G3a/A1, moderately decreased glomerular filtration rate (GFR) between 45-59 mL/min/1.73 square meter and albuminuria creatinine ratio less than 30 mg/g Diabetes type 2, controlled Heart attack Hyperlipidemia Hypertension Left bundle branch block Presence of combination internal cardiac defibrillator (ICD) and pacemaker 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 Thyroid nodule Surgical History H/O sinus surgery History of brain surgery History of cholecystectomy S/P CABG x 4 Social History household members: spouse Smoking Status: Never smoker alcohol intake: never Comment: Mr. Winston Houston is an 86-year-old male with a history significant for [place], systolic heart failure with reduced ejection fraction secondary to CAD s/p CABG x4, hypertension, hyperlipidemia, BPH, gout, asthma chronic kidney disease stage 3, diabetes type 2 and trigeminal neuralgia who presents to the emergency department for 3 days of word-finding problem, slow verbal response.?Patient is accompanied by his , who states that patient has appeared more sleepy, has had slower speech response, some word-finding problems over the last 3 days.? No apparent CVA on imaging, but unable to perform MRI given PPM. 1. Neurological deficit (word finding, slowed verbal response), acute, present on admission. Possible CVA or hypertensive emergency. -possible CVA. NIH:3 upon admit-no NIH done in ED. 4 hours after admit the ICU nurse completed NIH: 0 -she was also advised by the patient's spouse at that time that the delayed speech, word-finding difficulty has actually been present over several years.? And that the believes that he has been in the beginning stages of dementia for some time.? She only brought him in because of his increased sleepiness over the past 3 days was the only change from his base line. -differential includes vascular dementia with stepwise decline, acute CVA, hypertensive emergency, or toxic/metabolic sources, as well as sleep apnea. -patient's INR was supratherapeutic at 3.5 will hold patient's Coumadin at this time. -patient is already on ASA, Lipitor, Plavix -unable to perform MRI. -will need better BP control. 2. Hypertension, essential, in the setting of hypertensive urgency/emergency, acute on chronic, present on admission. Stable. -continue home BP medications, increased losartan to 100 mg. -given symptoms on admission, ideally will control BP more adequately before discharge home. 3. Chronic kidney disease stage G3a/A1 moderate, chronic, present on admission. Stable -Patient was born with a solitary kidney.? -Initial creatinine:1.25? Baseline creatinine is variable and appears to be 1.2-1.5.? -Avoid nephrotoxic agents and renally dose medications.? -Continue to monitor creatinine daily. 4. Systolic heart failure with reduced ejection fraction, secondary to CAD s/p CABG x4, chronic, present on admission. Stable. -Does not represent CHF exacerbation. Patient denies shortness of breath or weight gain -Echo: 08/19/20 Dr. Blackmon EF 30+/-5%, moderate global hypokinesis with akinesis of the mid to apical septum, grossly, normal right ventricular size and function, no significant valvular abnormalities. ? -Continue to monitor strict I&O's and daily weights. ? 5. BPH, chronic, present on admission -continue allopurinol 6. Non insulin-dependent Diabetes mellitus type 2, chronic, present on admission. Stable.? -Hold metformin 1000 mg twice daily. -patient admitted under diabetic protocol? -Continue ACHS blood glucose checks and low-dose correctional scale insulin. -Continue carbohydrate consistent diet.? 7. Hyperlipidemia, related to type 2 diabetes, chronic, present on admission. Stable -Continue atorvastatin 8. Asthma, chronic, present on admission -continue albuterol 9. Trigeminal nerve neuralgia, chronic, present on admission -continue gabapentin Code status:?DNR per patient & Surrogate decisionmaker:? .?? VTE prophylaxis:? Lovenox SCDs Disposition:? Patient admitted for observation, expected length of stay less than 2 midnights I have utilized all available immediate resources to obtain, update, or review the patient's current medications. I confirmed that the patient's advanced care plan is present, Code status is documented and/or surrogate decision maker is listed in the patient's medical record. Assessment & Plan Time Spent With Patient Critical Care time: I spent a total of [] minutes of critical care time on this patient's care today; this time is exclusive of procedural time. Quality VTE Deep Vein Thrombosis/Pulmonary Embolism Present on Admission: No
--- NOTE | 2021-09-07 14:45 | SLP.IPNOTE ---
Per Hospitalist, pt does not need ST services at this time.
--- NOTE | 2021-09-07 15:16 | PT-IP ANOTE ---
pt continues to have high BP: 198/90. Will hold PT eval. checked with nurse and nurse agreed. stated that MD just ordered new meds and pt will be more appropriate tomorrow. will f/u.
--- NOTE | 2021-09-07 16:01 | CM.DANOTE ---
DCP/Assessment: Reviewed chart only. Patient hypertensive most of the day therefore, did not see. Patient is a 84yr old male whom resides in [facility] with spouse/[place]. PCP is Dr. Trinidad Garcia. Primary payor is 1[facility]. Spoke briefly with RN whom reports that patient alert and somewhat oriented. Patient possibly in very early stages of dementia. Patient ambulatory but did not see therapy today due to hypertension. Anticipate home when stable. CM team to evaluate once patient medically appropriate to do so. Spouse not at bedside this afternoon. P: Home when stable. Patient may benefit from home health? pending progress. KJS Discharge Planning/Care Management Advanced directive, confirm from FAMILY Start: 09/06/21 21:01 Freq: Q24H Status: Active Protocol: Document 09/06/21 21:01 CW (Rec: 09/06/21 21:54 CW [id number]) Advance Directive, confirm on record Time 21:53 Person contacted VENICE ASHER Copy received No Time 21:53 Person contacted VENICE HOUSTON Copy received No Advanced directive available on record No CM Discharge Assessment Start: 09/07/21 15:57 Freq: Status: Active Protocol: Document 09/07/21 15:57 KJS (Rec: 09/07/21 16:01 KJS [id number]) Discharge Planning Assessment Assigned Bill Peddler SARAH Pérez Contact Information [place] (spouse) # [phone] Advance Directives? Yes Advance Directives on File No History Provided By Patient,Family Member,Medical Record Prior Living Arrangements House Household Members spouse Type of transporation used prior to Relies on Others admit Independent with ADL's Pending Is patient alert and oriented? No: Per nrsg dementia lke symptoms Comment Patient unable to participate in therapy today due to hypertension. Caregiver for Another No Comment Penidng Transportation Arrangement Family If patient plan is home with home health Yes : Has signed face to face form been completed? Review Status In Process Next Review Type Continued Stay Review
--- NOTE | 2021-09-07 17:12 | PC.NURSE ---
PT ALERT AND ORIENTED TO SELF- AFTER SOME TIME AND REMINDING PT OF RECENT EVENTS, HE REALIZES /REMEMBERS HE IS A PT HERE AT THE HOSPITAL HE AND HIS VERY CONCERNED RE: NOT GETTING HIS COUMADIN - EXPLAINED AT LENGTH THE USE OF LOVENOX AND HIS INR 3.3- HE REMAINED HYPERTENSIVE MOST OF DAY AND WAS POTENTIALLY GOING TO DISCHARGE HOME BUT RECEIVED ADDITIONAL DOSE OF 50MG LOSARTAN WHICH BROUGHT HIS B/P DOWN TO SBP 150- UNABLE TO COMPLETE MRI DUE TO IMPLANTED PACEMAKER-
[2021-09-07] MEDS: TAMSULOSIN 0.4 MG CAPSULE PO (22:04)
[2021-09-07] MEDS: METFORMIN HCL 500 MG TABLET PO (22:04)
[2021-09-07] MEDS: ACETAMINOPHEN 325 MG TABLET 650 MG PO (22:05)
[2021-09-08] VITALS (10 sets, daily range): BP systolic 148–195; BP diastolic 78–97; PULSE 67–112; RESP 18; TEMP 36.3–37.2; O2SAT 94–100
[2021-09-08] MEDS: LABETALOL 20 MG/4 ML SYRINGE 10 MG IV (04:05)
[2021-09-08] MEDS: ACETAMINOPHEN 325 MG TABLET 650 MG PO (04:10)
[2021-09-08 05:38] LABS: Magnesium 1.6 mg/dL (1.6-2.3)
--- NOTE | 2021-09-08 07:52 | P.DS_ITS ---
History of Present Illness History of Present Illness Date Patient Seen: 09/10/21 Time Patient Seen: 17:45 Chief complaint: High blood pressure at ENT appt Narrative: Per Dona Oviedo, LIVESTOCK INSPECTOR-[employer]: ?Mr. Winston Houston is an 86-year-old male with a history significant for MD, systolic heart failure, hypertension, hyperlipidemia, chronic kidney disease stage 3, diabetes type 2 and trigeminal neuralgia who presents to the emergency department for 3 days of word-finding problem, slow verbal response.? Patient was seen at his ENTs office earlier today for a hearing evaluation, when his blood pressure was high in the 180s systolic, patient was sent to the ED for further evaluation.? Patient is accompanied by his in ED, who stated that patient has appeared more sleepy, has had slower speech response, some word- finding problems over the last 3 days.? Patient denies fever, chills, chest pain, shortness of breath, cough, nausea, vomiting, abdominal pain, dysuria, flank pain, lightheadedness, dizziness, syncope.? Patient is on Coumadin, clopidogrel.? Upon admit is not at bedside, patient appears alert and orientated but has continued difficulty finding words, slow or no verbal response.? Patient continues to deny chest pain, shortness of breath, weakness, and does not appear to be aware of word-finding difficulty.? He is resting comfortably in the bed in no distress at this time. Following admit as reported by Iveth MICHEL, ICU, after having a conversation with the patients . The verbalized that her 's delayed speech and thought process has actually been going on from anywhere from months to years and that only the increased sleepiness has been over the past 3 days.? But that his meditation has been gradually progressively worsening over a long period of time, to such extent that she believes he has been suffering from the early stages of dementia. Patient's vitals upon admit temp 98.5?, BP 191/90, HR 70, R 16, O2 saturation 97% on room air.? Patient's blood pressures have been labile in the ED from 233/103 to 201/97, patient has been given 2 doses of labetalol 20 mg.? Patient's HGB 12.4, HCT 38.1, bicarb 35, BUN 28, glucose 127, GFR 55 all within keeping of the patient's CKD.? Patient's PT 40.1, INR 3.5, PTT 43 are elevated.? Patient's initial troponin was negative at 0.017.? Patient's head CT was negative for any acute intracranial processes.? Patient's chest x-ray demonstrated no acute cardiopulmonary processes.? Patient being admitted for neurological deficit/ CVA rule out, and hypertensive urgency/emergency.? Patient's blood pressures continued to be labile, requiring ICU admission, tele asphalt raker consult, and nicardipine drip. Patient was unable to provide family history based on neurological deficit. Discharge Providers Provider Date of admission: 09/06/21 19:30 Discharge Date: 09/08/21 Primary care physician: Trinidad Garcia MD Consults: 09/06/21 19:42 Consult to Discharge Planning Routine Comment: Consult to Occupational Therapy Evaluate & Treat Comment: Physician Instructions: Evaluate and treat Consult to Physical Therapy Evaluate & Treat Comment: Physician Instructions: Evaluate and Treat 09/06/21 20:50 Consult to Tele-asphalt raker Routine Comment: Consulting Provider: [employer]iv[employer] Reason for consultation: Senior Electrical Estimator services Has provider been notified: No 09/07/21 00:36 Consult to PLASTERER MAINTENANCE - Coil Winding Supervisor Routine Comment: Possible dementia/CVA- Goals of care discussion PLASTERER MAINTENANCE Consult needed for:: End of Life/Goal Care Dis Discharge provider: Doron Jay DO Summary Hospital Course Discharge Diagnosis: Please see hospital course by problem list noted below. Hospital Course: Mr. 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 No apparent CVA on imaging, but unable to perform MRI given PPM. 1. Neurological deficit (word finding, slowed verbal response), acute, present on admission. Possible CVA or hypertensive emergency. -possible CVA. NIH:3 upon admit-no NIH done in ED. 4 hours after admit the ICU nurse completed NIH: 0. Patient was never started on nicardipine infusion for hypertensive emergency after evaluation in the ICU. -was also advised by the patient's spouse at that time that the delayed speech, word-finding difficulty has actually been present over several years however this episode was worse. -differential includes vascular dementia with stepwise decline, acute CVA, hypertensive emergency, or toxic/metabolic sources, as well as sleep apnea. Though patient did improve compared to admission somewhat after adequate control of his blood pressure. -patient's INR was supratherapeutic at 3.5, can resume at time of discharge. -patient is already on ASA, Lipitor, Plavix -unable to perform MRI. 2. Hypertension, essential, in the setting of hypertensive urgency/emergency, acute on chronic, present on admission. Stable. -continue home BP medications, increased metoprolol in the end to BID with improvement. -given symptoms on admission, ideally will control BP more adequately before discharge home. 3. Chronic kidney disease stage G3a/A1 moderate, chronic, present on admission. Stable -Patient was born with a solitary kidney.? -Initial creatinine:1.25? Baseline creatinine is variable and appears to be 1.2- 1.5.? -Avoid nephrotoxic agents and renally dose medications.? -Continue to monitor creatinine daily. 4. Systolic heart failure with reduced ejection fraction, secondary to CAD s/p CABG x4, chronic, present on admission. Stable. -Does not represent CHF exacerbation. Patient denies shortness of breath or weight gain -Echo: 08/19/20 Dr. Blackmon EF 30+/-5%, moderate global hypokinesis with akinesis of the mid to apical septum, grossly, normal right ventricular size and function, no significant valvular abnormalities. ? -increased beta beatrice as noted above for HTN. ? 5. BPH, chronic, present on admission -continue allopurinol 6. Non insulin-dependent Diabetes mellitus type 2, chronic, present on admission. Stable.? -no medication changes are recommended. 7. Hyperlipidemia, related to type 2 diabetes, chronic, present on admission. Stable -Continue atorvastatin 8. Asthma, chronic, present on admission -continue albuterol 9. Trigeminal nerve neuralgia, chronic, present on admission -continue gabapentin and tegretol. Exam Vital Signs (past 8 hours): - 09/08/21 00:00 09/08/21 01:00 09/08/21 01:30 Temperature 98.9 F Pulse Rate 112 H 74 Respiratory Rate 18 Blood Pressure 195/86 H 186/83 H Pulse Oximetry 94 98 09/08/21 03:57 09/08/21 04:00 09/08/21 04:05 Temperature Pulse Rate 73 Respiratory Rate Blood Pressure 191/97 H 191/97 H Pulse Oximetry 98 09/08/21 04:39 Temperature Pulse Rate 72 Respiratory Rate Blood Pressure 148/78 H Pulse Oximetry Oxygen Delivery Method Room Air Oxygen Flow Rate 0 Narrative Exam Narrative: General:? Patient is a well-developed, well-nourished elderly male in no distress at this time. HEENT:? Normocephalic, atraumatic, extraocular muscles intact, oral pharynx is clear and mucous membranes are moist.? Neck is supple and symmetric, trachea is midline, no adenopathy, no thyroid enlargement, nontender, no masses palpated.? Negative for JVD Chest:? Normal AP diameter and contour without kyphoscoliosis, no nasal flaring, retractions, or tachypneic labored breathing.? Patient has a pacemaker and defibrillator left upper chest area. Lungs:? Auscultation of all lung baltazar are coarse, clear without adventitious sounds, wheezes, rhonchi, or rales. Cardio:? regular rate and rhythm without murmur, rubs, or gallops, no carotid bruit, no cardiac pulsations present. Abdomen:? Soft nontender, negative for organomegaly, or masses.? Bowel sounds are present in all 4 quadrants without guarding or rebound, no CVA tenderness. Musculoskeletal:? Muscle strength and tone appear equal within normal limits, no deformity, crepitus, effusions, cyanosis, clubbing present.? Plus one bilateral nonpitting edema to lower extremities,? range of motion intact radial and pedal pulses are normal. Skin:? Warm very dry, scaly, and intact without rashes, ulcerations or petechiae.? Neuro:? Alert and orientated x3, sensation to touch intact, no gross deficits noted of cranial nerves. though he does have some facial asymmetry without facial droop, probably chronic. Psych:? Patient has a well-kept appearance, appropriate affect, mental status attitude thought context and judgment are appropriate for age, though patient is struggling with difficulty answering questions due to difficulty in word finding and delayed, slow responses. Objective Labs Result Diagrams: 09/06/21 14:25 09/07/21 04:39 Labs: Laboratory Results - last 24 hr 09/08/21 04:45 Magnesium 1.6 PFSH Medical History (Updated 09/07/21 @ 00:06 by Dona Oviedo [facility]) Bleeding ulcer Chronic anticoagulation Chronic gout Chronic kidney disease (CKD) stage G3a/A1, moderately decreased glomerular filtration rate (GFR) between 45-59 mL/min/1.73 square meter and albuminuria creatinine ratio less than 30 mg/g Diabetes type 2, controlled Heart attack Hyperlipidemia Hypertension Left bundle branch block Presence of combination internal cardiac defibrillator (ICD) and pacemaker 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 Thyroid nodule Surgical History H/O sinus surgery History of brain surgery History of cholecystectomy S/P CABG x 4 Social History household members: spouse Smoking Status: Never smoker alcohol intake: never Discharge Plan Discharge Plan Patient Disposition: Home Provider Discharge Comment: You were admitted to the hospital with high blood pressure, possible stroke. Your symptoms improved but your blood pressure remained high. Your home BP medications were increased. Medications for a possible stroke were added. I recommend quick follow up with your PCP for further evaluation. Please keep a blood pressure log at home and measure twice per day to help guide treatment at home. You may be able to get an MRI as an outpatient at a different facility with your pacemaker in place. Discharge orders & Medications Prescriptions: New atorvastatin 80 mg tablet 80 mg PO BEDTIME 30 Days Qty: 30 0RF metoprolol succinate 50 mg Tablet Extended Release 24 Hr 50 mg PO BID 30 Days Qty: 60 0RF Continued acetaminophen-codeine 300-30 mg tablet 1 tab PO Q6H PRN (Reason: Pain (Scale Score 1-3)) 0RF albuterol sulfate 90 mcg/actuation Hfa Aerosol Inhaler 1 puff INHALATION Q4H PRN (Reason: Shortness Of Breath) 0RF gabapentin 600 mg tablet 300 mg PO TID Qty: 0 0RF metformin 500 mg tablet 500 mg PO BEDTIME 0RF magnesium chloride 400 mg PO DAILY 0RF furosemide 20 mg Tablet 20 mg PO DAILY 0RF losartan 100 mg PO DAILY 0RF carbamazepine [Tegretol] 200 mg Tablet 300 mg PO DAILY 0RF clopidogrel 75 mg tablet 75 mg PO DAILY 0RF fluticasone propionate 50 mcg/actuation spray,suspension 50 mcg Intranasal BID 0RF pantoprazole 40 mg tablet,delayed release (DR/EC) 40 mg PO DAILY 0RF tamsulosin 0.4 mg capsule 0.4 mg PO BEDTIME 0RF metformin 500 mg tablet 1,000 mg PO QAM 0RF Discontinued atorvastatin 40 mg tablet 40 mg PO DAILY 0RF metoprolol succinate 50 mg tablet extended release 24 hr 50 mg PO DAILY 0RF Follow up/Referrals: Trinidad Garcia MD [Primary Care Provider] - 09/10/21 2:25 pm (appt:09/10 @ 2:25 check in @ [facility] with dr garcia) Diet/Activity/Treatments Diet: Diet as Tolerated Activity: As tolerated Visit Report/Discharge Packet Instructions: The DASH Diet, DI for Heart Failure, DI for Stroke-Ischemic, Chronic Kidney Disease, DI for High Blood Pressure Discharge Data Primary Care Provider: Trinidad Garcia Attending Provider: Dona Oviedo VTE Deep Vein Thrombosis/Pulmonary Embolism Present on Admission: No
[2021-09-08] MEDS: ATORVASTATIN 20 MG TABLET 40 MG PO (08:38)
[2021-09-08] MEDS: GABAPENTIN 600 MG TABLET 300 MG PO (08:39)
[2021-09-08] MEDS: CLOPIDOGREL 75 MG TABLET PO (08:39)
[2021-09-08] MEDS: METOPROLOL ER 50 MG TABLET PO (08:41)
[2021-09-08] MEDS: SPIRONOLACTONE 25 MG TABLET 12.5 MG PO (08:42)
[2021-09-08] MEDS: LOSARTAN 50 MG TABLET 100 MG PO (08:42)
--- NOTE | 2021-09-08 09:40 | OT.IP.EVAL ---
Current Diagnoses Hypertensive urgency (09/06/21) Chronic systolic (congestive) heart failure (09/06/21) Chronic kidney disease, stage 3 unspecified (09/06/21) Altered mental status, unspecified (09/06/21) Abnormal coagulation profile (09/06/21) Past Medical History (Last Updated 09/07/21 @ 00:06 [facility] Bleeding ulcer Chronic anticoagulation Chronic gout Chronic kidney disease (CKD) stage G3a/A1, moderately decreased glomerular filtration rate (GFR) between 45-59 mL/min/1.73 square meter and albuminuria creatinine ratio less than 30 mg/g Diabetes type 2, controlled H/O sinus surgery Heart attack History of brain surgery History of cholecystectomy Hyperlipidemia Hypertension Left bundle branch block Presence of combination internal cardiac defibrillator (ICD) and pacemaker S/P CABG x 4 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 Thyroid nodule Surgical History (Last Reviewed 09/07/21 @ 00:02 by LUMA AkhtarEVENS) H/O sinus surgery History of brain surgery History of cholecystectomy S/P CABG x 4 Occupational Therapy Inpatient Evaluation/Re-Eval M1 PT/OT-IP Prior Functional Status Start: 09/07/21 13:03 Freq: NEEDED Status: Active Protocol: Document 09/08/21 09:00 [facility] (Rec: 09/08/21 13:07 [facility] [id number]) Medical Review Prior Functional Status Medical History Reviewed Yes Communication very [place]; has to read lips to be able to comprehend questions Mobility and Gait pt stated that he is modified independent with all mobilities and ambulation without AD but uses a 4WW on/ off Activities of Daily Living and IADL's Pt prior able to do all his ADL's on his own. Social History Household Members spouse Living Arrangements House Number of Floors (Floors) One Floor Number of Stairs To Enter/Railing? 5 steps with rail to enter Home Environment Standard Height Toilet,Walk in Shower,Built-In Shower Seat Home Equipment Hand Held Shower,Grab Bars In Shower Additional Social History Comment Pt has built in shower seat in the shower. M2 OT-IP Current Condition Start: 09/08/21 12:53 Freq: Status: Active Protocol: Document 09/08/21 09:00 [facility] (Rec: 09/08/21 13:07 [facility] [id number]) Occupational Therapy Current Condition Current Condition Evaluation Date 09/08/21 Treatment Diagnosis HTN/altered mental status Diagnosis Onset Date 09/06/21 M3 OT- IP Subjective and Pain Start: 09/08/21 12:53 Freq: Status: Active Protocol: Document 09/08/21 09:00 [facility] (Rec: 09/08/21 13:07 [facility] [id number]) OT- Subjective Occupational Therapy Visit Type Type Initial Evaluation Visit Start Time 09:00 Visit Stop Time 09:40 Total Visit Minutes 40 Occupational Therapy Visit Comments Patient Comments Pt agreed to get up. Patient/Caregiver Goals To go home. OT Pain Assessment Pain When Pain Assessed At Rest Pain Present Pain Present Denied Pain M4 OT- IP ADL's Start: 09/08/21 12:53 Freq: Status: Active Protocol: Document 09/08/21 09:00 [facility] (Rec: 09/08/21 13:07 [facility] [id number]) OT ADL-Grooming General Evaluation Grooming Ability Independent Comments OT Grooming Comments able to do while standing front of the sink OT ADL-Oral Care General Eval Oral Care Ability Independent OT ADL-Dressing General Eval Lower Body Dressing Ability Standby Assistance Comments OT Dressing Comments VC to silvia his LLE first to increase ease. OT ADL-Toileting General Evaluation Toileting Ability Standby Assistance OT ADL-Bathing Comments OT Bathing Comments Pt not wanting to shower at this time. M5 OT- IP IADL's Start: 09/08/21 12:53 Freq: Status: Active Protocol: Document 09/08/21 09:00 [facility] (Rec: 09/08/21 13:07 [facility] [id number]) OT-Instrumental Activities of Daily Living Home Safety Awareness Ability to Problem Solve Emergency Unable to Problem Solve Situations Home Safety Comments Pt needing cues for completeness for home safety questions. At this time would be best for his to provide supervision for all IADl needs and assist as needed. Driving Driving Concerns Identified Regarding Safety Driving Comments Pt states his drives 95% of the time. M6 OT- IP Functional Cognition Start: 09/08/21 12:53 Freq: Status: Active Protocol: Document 09/08/21 09:00 [facility] (Rec: 09/08/21 13:07 [facility] [id number]) Cognitive Factors Limiting Selfcare Function Cognitive Ability Level of Alertness Alert Patient Orientation Name,Place,Situation Attention Span Ability Capable of Focused Attention, Capable of Sustained Attention Ability to Follow Commands Able to Follow Multi-Step Commands Memory Description Short Term Impaired Safety Awareness Underestimates Need for Assistance Cognitive Comments Cognitive Assessment Comments Pt refusing to do a cognitive assessment at this time. Pt is forgetful of medications that he takes confusing it medications that he has taken in the past. Pt also speaks of recently that he and his has been having trouble buying airplane tickets and that they have spent money on wrong tickets. Pt is very hard of hearing which may make pt's understanding very difficult for him to hear things correctly. OT- Vision and Hearing OT- Hearing Assessment OT- Hearing Assessment Hearing Impaired,Use of Hearing Aids OT- Vision Assessment Visual Acuity Glasses All The Time M7 OT- IP Mobility and Balance Start: 09/08/21 12:53 Freq: Status: Active Protocol: Document 09/08/21 09:00 [facility] (Rec: 09/08/21 13:07 [facility] [id number]) OT-Transfer Assessment Sit to and From Stand Sit to and from Stand Standby Assistance Transfers Transfer Ability Standby Assistance Technique Transfer Destination Chair,Toilet Transfer Technique Stand Step Pivot Devices Transfer Assistive Devices Gait Belt,4 Wheeled Walker Comments Mobility Comments SBA with 4ww. Pt able to take a few step without the 4WW and was close SBA. OT- Balance Assessment Sitting Balance and Reactions Static Sitting Balance Ability Normal Dynamic Sitting Balance Ability Fair Standing Balance and Reactions Static Standing Balance Ability Good Dynamic Standing Balance Ability Fair M8 OT- IP Objective Assessments Start: 09/08/21 12:53 Freq: Status: Active Protocol: Document 09/08/21 09:00 [facility] (Rec: 09/08/21 13:07 [facility] [id number]) OT Gross Range of Motion Upper Extremity Range of Motion Assessment Within Functional Limits OT Strength Upper Extremity Strength Assessment Within Functional Limits OT-Muscle Tone Assessment Muscle Tone WNL Yes M9 OT- IP Assessment and Plan Start: 09/08/21 12:53 Freq: Status: Active Protocol: Document 09/08/21 09:00 [facility] (Rec: 09/08/21 13:07 [facility] [id number]) OT Summary Assessment and Plan Potential Rehabilitation Potential Good Analytic Complexity at Evaluation Low Summary OT Impairments Functional Cognition, Functional Mobility,Dressing, Toileting,Bathing,Shower Transfers,Activity Tolerance Progress Towards Goals Progressing Toward Goals Assessment Summary Pt low complexity and here due to HTN altered mental state which pt states has cleared. Goals Dressing Goal Independent Toileting Goal Independent Bathing Goal Independent Toilet Transfer Goal Independent Shower Transfer Goal Independent Days to Meet Goals 5 Frequency of Treatment Frequency Of Treatment Once a Day Treatment Plan OT Treatment Plan ADL Training,Functional Cognition Training,Functional Mobility,Patient/Family Education,Discharge Planning Other Treatment Recommendations and Next shower if still here Treatment Focus Discharge Recommendations OT Discharge Recommendations Home with Assistance Transportation Needs at Discharge Private Vehicle
--- NOTE | 2021-09-08 10:51 | PT.IIE ---
Current Diagnoses Hypertensive urgency (09/06/21) Chronic systolic (congestive) heart failure (09/06/21) Chronic kidney disease, stage 3 unspecified (09/06/21) Altered mental status, unspecified (09/06/21) Abnormal coagulation profile (09/06/21) Medical History (Last Updated 09/07/21 @ 00:06 by Dona Oviedo [facility]) Bleeding ulcer Chronic anticoagulation Chronic gout Chronic kidney disease (CKD) stage G3a/A1, moderately decreased glomerular filtration rate (GFR) between 45-59 mL/min/1.73 square meter and albuminuria creatinine ratio less than 30 mg/g Diabetes type 2, controlled Heart attack Hyperlipidemia Hypertension Left bundle branch block Presence of combination internal cardiac defibrillator (ICD) and pacemaker 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 Thyroid nodule Physical Therapy Inpatient Evaluation/Re-Eval M1 PT/OT-IP Prior Functional Status Start: 09/07/21 13:03 Freq: NEEDED Status: Active Protocol: Document 09/08/21 10:51 AB (Rec: 09/08/21 13:23 AB [email or web address]) Medical Review Prior Functional Status Medical History Reviewed Yes Communication very [place]; has to read lips to be able to comprehend questions Mobility and Gait pt stated that he is modified independent with all mobilities and ambulation without AD but uses a 4WW on/ off Social History Household Members spouse Living Arrangements House Number of Floors (Floors) One Floor Number of Stairs To Enter/Railing? 4 steps R rail to enter Home Environment Standard Height Toilet,Walk in Shower,Built-In Shower Seat Home Equipment Hand Held Shower,Grab Bars In Shower M2 PT-IP Current Condition Start: 09/07/21 13:03 Freq: NEEDED Status: Active Protocol: Document 09/08/21 10:51 AB (Rec: 09/08/21 13:23 AB [id number]) Physical Therapy Current Condition Current Condition Evaluation Date 09/08/21 Treatment Diagnosis HTN; difficulty in walking Onset Date 09/06/21 M3 PT-IP Subjective Start: 09/07/21 13:03 Freq: NEEDED Status: Active Protocol: Document 09/08/21 10:51 AB (Rec: 09/08/21 13:23 AB [email or web address]) Subjective Physical Therapy Visit Type Type Initial Evaluation Visit Start Time 10:51 Visit Stop Time 11:33 Total Visit Minutes 42 Notes Pt on hold for PT yesterday due to high BP. BP currently is : 163/78 AR 68 and O2 sat 98-99%. PT eval completed. Number of DISK OPERATOR Visits 0 Physical Therapy Visit Comments Patient Comments agreeable to do PT M4 PT-IP Mobility and Gait Start: 09/07/21 13:03 Freq: NEEDED Status: Active Protocol: Document 09/08/21 10:51 AB (Rec: 09/08/21 13:23 AB [email or web address]) PT-Bed Mobility Assessment Supine to Sit Supine to Sit Standby Assistance Sit to Supine Sit to Supine Standby Assistance PT-Transfer Assessment Sit to and From Stand Sit to and from Stand Standby Assistance,Contact Guard Assistance,1 Person Assistance,Use of Upper Extremities Equipment Transfer Assistive Device Gait Belt,4 Wheeled Walker Orthotic/Prosthetic Devices or Brace: No Transfers Transfer Destination Bed,Chair Transfer Technique ambulated Transfer Ability Level of Assist Standby Assistance,Contact Guard Assistance,1 Person Assistance,Use of Upper Extremities Comments Mobility Comments pt sitting on chair and agreed to do PT. BP: 163/78 AR: 68 O2 sat 98-99%. completed sit to stand SBA and ambulated in room ~ 25 ft using 4WW SBA to CGA. sat on EOB and completed bed mobility sit<> supine SBA. completed sit to stand from EOB CGA x 2 attempts to complete task. initial LOB posteriorly on first attempt and completed on 2nd attempt CGA. pt ambulated in the hallway ~ 300 ft using 4WW SBA to CGA. completed up/down stairs using R rail CGA. pt stated that his helps him with his walker when he does stairs. pt ambulated back to his room using 4WW SBA to CGA. sat back on chair. positioned on chair. call light and table placed within reach. chair alarm on. Gait Assessment Gait Gait Assistance Required: Standby Assistance,Contact Guard Assist Distance (Feet) 300 Able to Maintain Weight Bearing Status Yes During Gait Assistive Devices Assistive Device Gait Belt,4 Wheeled Walker Orthotic/Prosthetic Devices or Brace: No Gait Deviations General Gait Pattern Decreased Stride Length, Decreased Feet Clearance Factors Limiting Gait Function Factors Limiting Gait Function Decreased Activity Tolerance, Poor Balance,Poor Safety Awareness Stair Climbing Assessment Evaluation Level of Assist On Stairs Standby Assistance,Contact Guard Assistance Devices Stair Climbing Assistive Devices Right Railing Technique/Endurance Stair Climbing Direction Ascend and Descend Stair Climbing Technique Step to Step Number of Steps Climbed 3 Query Text: Stair Climbing Set # Repetitions (reps) 1 PT-Balance Assessment Sitting Balance and Reactions Static Sitting Balance Ability Normal Dynamic Sitting Balance Ability Good Standing Balance and Reactions Static Standing Balance Ability Fair Dynamic Standing Balance Ability Fair Device Used 4WW M5 PT-IP Objective Assessments Start: 09/07/21 13:03 Freq: NEEDED Status: Active Protocol: Document 09/08/21 10:51 AB (Rec: 09/08/21 13:23 AB [email or web address]) Orientation Orientation/Cognition Level of Alertness Alert Orientation Name,Place,Situation Language Function Ability Hard of Hearing Safety Awareness Decreased Safety Awareness Memory Description Short Term Impaired Gross Range of Motion Lower Extremity ROM Assessment Within Functional Limits Strength Comments Strength Comments RLE 3+/5 LLE: 4-/5 Sensation Assessment Sensation Gross Sensation WNL Muscle Tone Muscle Tone WNL Yes M6 PT-IP Treatment Start: 09/07/21 13:03 Freq: NEEDED Status: Active Protocol: Document 09/08/21 10:51 AB (Rec: 09/08/21 13:23 AB [email or web address]) Physical Therapy Treatment Education Education Provided Safety M7 PT-IP Assessment and Plan Start: 09/07/21 13:03 Freq: NEEDED Status: Active Protocol: Document 09/08/21 10:51 AB (Rec: 09/08/21 13:23 AB [email or web address]) PT Summary Assessment and Plan Potential Rehabilitation Potential Good Status of Condition at Evaluation Stable Summary Impairments Pain,ROM,Strength,Balance, Coordination,Sensation,Tone, Cognition,Bed Mobility, Transfers,Gait,Activity Tolerance Assessment Summary pt requiring SBA to CGA with mobility and plans to go home with spouse to assist him. Pt may go home when medically stable. Goals Bed Mobility Goal Independent Transfer Goal Independent,Four Wheeled Walker Gait Goal Independent,Four Wheel Walker Gait Distance 350 Other Goals improve ambulation using SPC 250 ft mod I up/down 4 steps R rail mod I Days to Meet Goals 5 Frequency of Treatment Frequency Of Treatment Once a Day Treatment Plan Physical Therapy Treatment Plan Bed Mobility Training,Transfer Training,Gait Training, Therapeutic Exercise,Balance Retraining,Discharge Planning, Hot or Cold Pack,Neuromuscular Re-ed,Coordination Retraining Recommendations To Nursing Amount of Assist Needed 1 Person Assist Discharge Recommendations PT Discharge Recommendations Home with Assistance Transportation Needs at Discharge Private Vehicle
[2021-09-08] MEDS: allopurinoL 100 MG TABLET 200 MG PO (12:56)
[2021-09-08] MEDS: INSULIN LISPRO 100 UNIT/ML 3ML VIAL SUBCUT (12:57)
--- NOTE | 2021-09-08 13:26 | CM.DPNOTE ---
DC Note Patient returning home w/spouse today; cleared from therapy point of view- no needs indicated from this MECHANICAL MANAGER JW
--- NOTE | 2021-09-08 16:18 | PC.NURSE ---
Discharge: Pt feels ready to d/c to home. When spouse arrived she spoke with MD for a long time about meds and care. Pharmacist came by and spoke with about medications. Reviewed d/c packets and instructions. Rx has been esent. Questions answered. Pt and spouse both felt they would fine with d/c to home. D/c instructions reviewed and understood. Pt d/c to home via auto w/spouse.
== END 2021-09-08 15:05 | disposition home or self-care (01) ==
LOC: ED 19:28 → ICU 20:32 → AC 09-07 11:02
PROVIDERS: Emergency Medicine; Admitting Provider Nurse Practitioner Family; Emergency Provider Student in an Organized Health Care Education/Training Program; PCP Internal Medicine; Referring Provider Student in an Organized Health Care Education/Training Program; Visit Provider Nurse Practitioner Family
DX: R41.82 Altered mental status, unspecified (principal); R29.818 Other symptoms and signs involving the nervous system; I50.22 Chronic systolic (congestive) heart failure; N18.30 Chronic kidney disease, stage 3 unspecified; I10 Essential (primary) hypertension; R29.703 NIHSS score 3; E11.9 Type 2 diabetes mellitus without complications; J45.909 Unspecified asthma, uncomplicated; E78.5 Hyperlipidemia, unspecified; N40.0 Benign prostatic hyperplasia without lower urinary tract symptoms; G50.0 Trigeminal neuralgia; Z79.01 Long term (current) use of anticoagulants; Z66 Do not resuscitate; Z20.822 Contact with and (suspected) exposure to COVID-19
CPT/HCPCS: 36415; 70450; 70496; 70498; 71045; 80053; 80061; 80305; 81001; 81003; 82550; 82962; 83036; 83735; 83880; 84443; 84484; 85025; 85610; 85730; 87635; 87797; 93005; 94760; 96361; 96372; 96374; 96376; 97161; 97165; 97530; 99284; C9803; G0378; J1815; Q9967

== ENCOUNTER → 2021-11-10 15:00 | Outpatient (CLI) | payer OTHER, SELFPAY ==
[2021-09-06 20:05] VITALS: BMI 25.1
--- NOTE | 2021-11-10 | DI.ECHO.S_ITS ---
[facility] +---------+ : : [address] : [place] : : : : [id number] : : : : Phone: [phone]---------+ Echocardiogram Report + + :Name: MADDI STERLING Study Date: 11/10/2021 Height: 71 in : :[facility] ReadingLocation: Weight: 185 lb : : Gender: Male BSA: 2.0 m2 : :: 1935 Age: 86 yrs BP: 153/84 mmHg: :Reason For Study: ISCHEMIC CARDIOMYOPATHY : :Ordering Physician: Michelle JOSHIformed By: Edwige Palencia : :Referring: ESTEPHANIA JOSHI : + + Interpretation Summary The left ventricle is normal in size. The ejection fraction is estimated to be 45-50%. Previous LV ejection fraction 30A?5%. Except anterolateral wall and distal septum hypokinesis, rest of the wall motion abnormalities has improved. There is a pacemaker lead in the right ventricle. Pacemaker is a new finding. Procedure: A two-dimensional transthoracic echocardiogram with color flow and Doppler was performed in limited views only to assess Ischemic cardiomyopathy. The study quality was technically difficult. A contrast injection of Definity was performed to improve assessment of LV function. The patient has a paced rhythm. The heart rate ranged between 62-65 bpm during the study. Left Ventricle: The left ventricle is normal in size. Proximal septal thickening is noted. There is no thrombus. The ejection fraction is estimated to be 45-50%. Septal motion is consistent with conduction abnormality. Except anterolateral wall and distal septum hypokinesis, rest of the wall motion abnormalities has improved. Right Ventricle: There is a pacemaker lead in the right ventricle. Pericardium/ Pleura There is no pericardial effusion. There is no pleural effusion. MMode/2D Measurements & Calculations LVIDd: 4.4 cm LVIDs: 3.5 cm FS: 20.1 % IVSd: 0.95 cm LVPWd: 1.1 cm LV sarabia. diameter/BSA (cm/m^2): 2.2 LV sys. diameter/BSA (cm/m^2): 1.7 Reading Physician:06:31 PM
== END ==
PROVIDERS: PCP Internal Medicine; Referring Provider Internal Medicine Cardiovascular Disease; Visit Provider Internal Medicine Cardiovascular Disease
DX: I25.5 Ischemic cardiomyopathy (principal); Z95.0 Presence of cardiac pacemaker
CPT/HCPCS: 93307; Q9957

== ENCOUNTER 2021-11-12 00:26 | Emergency (ER) | payer MEDICARE, SELFPAY ==
[2021-09-06 20:05] VITALS: BMI 25.1
[2021-11-12] VITALS (14 sets, daily range): BP systolic 132–197; BP diastolic 61–91; PULSE 60–65; RESP 10–21; O2SAT 93–98; BMI 20.9
--- NOTE | 2021-11-12 00:31 | DI.RAD.S_ITS ---
PROCEDURE: XR CHEST 1V INDICATIONS: weakness TECHNIQUE: One view of the chest was acquired. COMPARISON: [facility], CR, XR CHEST 1V, 09/06/2021, 15:04. FINDINGS: Surgical changes and devices: Multi lead left-sided pacemaker. Median sternotomy changes. Lungs and pleura: Low lung volumes and mild bilateral interstitial thickening. Left lateral mid lung scarring. No acute consolidations or effusions. Mediastinum: Mild, stable cardiomegaly and bilateral central vascular prominence. Bones and chest wall: No suspicious bony lesions. Overlying soft tissues appear unremarkable. IMPRESSION: 1. Chronic low lung volumes. 2. Mild central vascular and interstitial congestion suggestive of CHF and/or volume overload.. Dictated by: Dorcas eRbolledo M.D. on 11/12/2021 at 1:54 Approved by: Dorcas Rebolledo M.D. on 11/12/2021 at 1:56
--- NOTE | 2021-11-12 00:31 | DI.CT.S_ITS ---
PROCEDURE: CT HEAD/BRAIN WO CON INDICATIONS: head injury, anticoagulation TECHNIQUE: Noncontrast 4.5 mm thick angled axial sections acquired from the foramen magnum to the vertex, with coronal and sagittal reformats. For radiation dose reduction, the following was used: automated exposure control, adjustment of mA and/or kV according to patient size. COMPARISON: [facility], CT, CT HEAD/BRAIN WO CON, 09/06/2021, 15:22. FINDINGS: Image quality: Excellent. CSF spaces: Basal cisterns are patent. No extra-axial fluid collections. The ventricles are symmetric in size and shape. Brain: No intracranial bleeds or masses. There is cerebral volume loss for age, with resultant ventricular and sulcal prominence. Cavum septum pellucidum. Small area of encephalomalacia in the left cerebellar hemisphere. There are moderate periventricular and deep white matter chronic small vessel ischemic changes. There is intracranial internal carotid artery atherosclerosis. Skull and face: Left occipital craniotomy. Calvarium and visualized facial bones appear otherwise intact, without suspicious lesions. Sinuses: Partial opacification of the with left sphenoid sinus and complete opacification of the right sphenoid sinus. Mucosal thickening at the base of the right maxillary sinus and evidence of prior bilateral maxillary sinus antrostomies. The other sinuses are clear. Bilateral mastoids are hypoplastic. Probably very small left mastoid effusion. IMPRESSION: 1. No CT evidence of acute intracranial process. 2. Stable area of left cerebellar hemisphere encephalomalacia and overlying craniotomy change. 3. Chronic sinus disease. Dictated by: Dorcas Rebolledo M.D. on 11/12/2021 at 1:50 Approved by: Dorcas Rebolledo M.D. on 11/12/2021 at 1:54
--- NOTE | 2021-11-12 00:33 | ED_ITS ---
HPI - Chest Pain General Chief Complaint: Fall Stated Complaint: near syncope Time Seen by Provider: 11/12/21 00:30 Source: patient and EMS Mode of arrival: EMS History of Present Illness HPI narrative: 86M nonsmoker with histoer of CAD, HTN, Renal failure, NIDDM with pacemaker on chronic anticoagulation presents by EMS for evaluation of ongoing dizziness and perhaps some headache. He has been dizzy for much the day,, he has a very poor historian and does not contribute much to any obvious provocation or palliation of his dizziness. He denies any upper respiratory complaints such as runny nose, nasal congestion or sore throat. He has no chest pain or shortness of breath. He was in a recliner chair that assists him to stand and upon getting up he felt a bit dizzy and near syncopal. His symptoms were brief, EMS was called and initially they found his blood pressure to be in the 90s, he stated he felt fine and actually had refused transport but soon thereafter changed his mind and asked them to bring him in. He denies any injuries or pain. He denies blurred vision or trouble with speech. He and his both state that his level of mentation is at his baseline. He is activated as a modified trauma given age, possible head injury and anticoagulation Related Data Home Medications Medication Instructions Recorded Confirmed clopidogrel 75 mg tablet 75 mg PO DAILY 05/06/18 09/07/21 fluticasone propionate 50 50 mcg INTRANASAL BID 05/06/18 09/07/21 mcg/actuation nasal spray,suspension pantoprazole 40 mg tablet,delayed 40 mg PO DAILY 05/06/18 09/07/21 release tamsulosin 0.4 mg capsule 0.4 mg PO BEDTIME 05/06/18 09/07/21 metformin 500 mg tablet 1,000 mg PO QAM 05/07/18 09/07/21 acetaminophen 300 mg-codeine 30 mg 1 tab PO Q6H PRN 03/31/20 09/07/21 tablet albuterol sulfate 90 mcg/actuation 1 puff INHALATION Q4H PRN 04/01/20 09/07/21 aerosol inhaler metformin 500 mg tablet 500 mg PO BEDTIME 05/08/21 09/07/21 carbamazepine 200 mg tablet 300 mg PO DAILY 09/07/21 09/07/21 (Tegretol) furosemide 20 mg tablet 20 mg PO DAILY 09/07/21 09/07/21 losartan 100 mg PO DAILY 09/07/21 09/07/21 magnesium chloride 400 mg PO DAILY 09/07/21 09/07/21 Previous Rx's Medication Instructions Recorded gabapentin 600 mg tablet 300 mg PO TID #0 tab 04/02/20 Allergies Allergy/AdvReac Type Severity Reaction Status Date / Time tolmetin Allergy Severe Anaphylaxis Verified 05/08/21 16:28 Review of Systems Review of Systems Narrative: GENERAL: Denies chills, fatigue, malaise, fever, sweats. HEENT: Denies sinus pain, ear pain, sore throat, difficulty swallowing, dizziness. RESPIRATORY: Denies dyspnea, cough, wheezing, hemoptysis, sputum. CARDIOVASCULAR: Denies chest pain, palpitations, orthopnea, edema, GASTROINTESTINAL: Denies nausea, vomiting, abdominal pain, diarrhea, constipation, melena. : Denies dysuria, frequency, incontinence, hematuria, urinary retention. MUSCULOSKELETAL: denies weakness, joint pain, or bony pain SKIN: Denies rash, skin lesions, or other NEUROLOGIC: See HPI PSYCHIATRIC: No concerning psychosocial issues. 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 Chronically ill but no evidence of acute distress, GCS 15 HEAD: Atraumatic. Normocephalic. EYES: Pupils equal round and reactive. Extraocular motions intact. No scleral icterus. No injection or drainage. ENT: Nose without bleeding, purulent drainage. Throat without erythema, tonsillar hypertrophy or exudate. Airway patent. NECK: Trachea midline. Non tender CARDIOVASCULAR: Regular rate and rhythm without murmurs, gallops, or rubs. RESPIRATORY: Clear to auscultation. Breath sounds equal bilaterally. No wheezes, rales, or rhonchi. GASTROINTESTINAL: Abdomen soft, non-tender, nondistended. EXTREMITIES: No edema or joint tenderness. BACK: Nontender without deformity or crepitance. No flank tenderness. NEURO: AOx3. SKIN: No rash or erythema of visible areas Initial Vital Signs Initial Vital Signs: Vital Signs Pulse Rate 65 11/12/21 00:34 Respiratory Rate 21 11/12/21 00:34 Pulse Oximetry 97 11/12/21 00:34 Course Orders Ordered: ED Orders 11/12/21 00:31 CT head/brain wo con Stat XR chest 1V Stat 11/12/21 00:32 EKG-12 Lead Stat 11/12/21 01:12 Blood Culture Stat Complete Blood Count AUTO DIFF Stat Comprehensive Metabolic Panel Stat Lactate (Lactic Acid) Stat Magnesium Stat NT-proBNP (BNP-Adult 18+) Stat Prothrombin Time INR Stat Troponin & CK Cardiac Panel Stat 11/12/21 01:25 Urine Culture Stat Urine Microscopic Stat 11/12/21 02:00 COVID19 -Nasal RAPID/Pre-Proc Stat Magnesium Sulfate (Magnesium Sulfate) 2 gm in 50 mls @ 25 mls/hr IV NOW ONE Stop: 11/12/21 04:12 Last Admin: 11/12/21 02:19 Dose: 25 mls/hr Documented by: Discontinued Medications Ondansetron HCl (Ondansetron 4 Mg/2 Ml Inj) 4 mg IV NOW ONE Stop: 11/12/21 02:32 Last Admin: 11/12/21 02:34 Dose: 4 mg Documented by: Reevaluation(s) Reevaluation #1: Patient has significant improvement after above-stated therapies. He is awake, alert oriented good color, is at the bedside. He tolerates ambulation trial quite well and ambulates to the department without difficulty. Patient has been given return precautions and questions answered to his apparent satisfaction Vital Signs Vital signs: Vital Signs - 8 hr 11/12/21 00:34 11/12/21 00:35 11/12/21 00:45 Pulse Rate 65 65 65 Respiratory Rate 21 17 17 Blood Pressure 197/91 H 191/91 H Pulse Oximetry 97 97 11/12/21 01:00 11/12/21 01:42 11/12/21 02:00 Pulse Rate 65 63 63 Respiratory Rate 16 14 Blood Pressure Pulse Oximetry 98 95 11/12/21 02:02 11/12/21 02:15 11/12/21 02:30 Pulse Rate 63 63 63 Respiratory Rate 18 13 14 Blood Pressure 143/65 H 156/72 H 154/72 H Pulse Oximetry 95 94 95 11/12/21 02:45 11/12/21 03:00 11/12/21 03:15 Pulse Rate 63 61 61 Respiratory Rate 14 13 14 Blood Pressure 135/65 135/62 135/65 Pulse Oximetry 93 94 96 11/12/21 03:30 Pulse Rate 61 Respiratory Rate 10 L Blood Pressure 132/61 Pulse Oximetry 97 MDM - Chest Pain Lab Data Result diagrams: 11/12/21 01:12 11/12/21 01:12 Labs: Lab Results 11/12/21 11/12/21 11/12/21 Range/Units 01:12 01:12 01:12 WBC 7.5 (4.5-11.0) X10^3/uL RBC 3.33 L (4.5-5.9) X10^6/uL Hgb 10.6 L (13.5-17.5) g/dL Hct 32.1 L (41-53) % MCV 96.4 (80-100) fL MCH 31.8 (26-34) PG MCHC 33.0 (30-36) % RDW 14.0 (11.6-14.8) % Plt Count 175 (150-400) X10^3/uL Neut % (Auto) 65.0 (50-75) % Lymph % (Auto) 22.7 L (25-40) % [place] % (Auto) 8.6 (3-14) % Eos % (Auto) 3.0 (2-4) % Baso % (Auto) 0.7 (0-2) % Neut # (Auto) 4800 (6127-4206) /uL Lymph # (Auto) 1700 (1046-9454) /uL [place] # (Auto) 600 (0-900) /uL Eos # (Auto) 200 (0-450) /uL Baso # (Auto) 100 (0-100) /uL PT 41.7 H (10.1-12.7) SECONDS INR 3.6 H (0.9-1.3) Sodium 140 (137-145) mmol/L Potassium 4.0 (3.4-5.1) mmol/L Chloride 104 (98-107) mmol/L Carbon Dioxide 24 (22-32) mmol/L BUN 37 H (9-20) mg/dL Creatinine 1.07 (0.66-1.25) mg/dL Estimated GFR > 60 (>60) mL/min BUN/Creatinine Ratio 34.6 H (6-22) Glucose 132 H (80-110) mg/dL Lactate (0.7-2.1) mmol/L Calcium 8.3 L (8.4-10.2) mg/dL Magnesium 1.2 L (1.6-2.3) mg/dL Total Bilirubin 0.4 (0.2-1.3) mg/dL AST 45 (17-59) IU/L ALT 58 H (<50) IU/L Alkaline Phosphatase 57 (38-126) U/L Total Creatine Kinase 74 (55-170) U/L CK-MB (CK-2) TNP CK-MB (CK-2) Rel Index TNP Troponin I < 0.012 (0.01-0.034) ng/mL NT-Pro-B Natriuret Pep 507 H (<450) pg/mL Total Protein 6.8 (6.3-8.2) g/dL Albumin 4.0 (3.5-5.0) g/dL Globulin 2.8 (1.7-4.1) g/dL Albumin/Globulin Ratio 1.4 (1.0-2.8) Urine RBC (0-5/HPF) Urine WBC (0-5/HPF) Ur Squamous Epith Cells (0-5/HPF) Urine Bacteria (None) Hyaline Casts (None) Ur Culture Indicated? SARS-CoV-2 (PCR) (Negative) 11/12/21 11/12/21 11/12/21 Range/Units 01:12 01:25 02:00 WBC (4.5-11.0) X10^3/uL RBC (4.5-5.9) X10^6/uL Hgb (13.5-17.5) g/dL Hct (41-53) % MCV (80-100) fL MCH (26-34) PG MCHC (30-36) % RDW (11.6-14.8) % Plt Count (150-400) X10^3/uL Neut % (Auto) (50-75) % Lymph % (Auto) (25-40) % [place] % (Auto) (3-14) % Eos % (Auto) (2-4) % Baso % (Auto) (0-2) % Neut # (Auto) (0130-0404) /uL Lymph # (Auto) (2506-9735) /uL [place] # (Auto) (0-900) /uL Eos # (Auto) (0-450) /uL Baso # (Auto) (0-100) /uL PT (10.1-12.7) SECONDS INR (0.9-1.3) Sodium (137-145) mmol/L Potassium (3.4-5.1) mmol/L Chloride (98-107) mmol/L Carbon Dioxide (22-32) mmol/L BUN (9-20) mg/dL Creatinine (0.66-1.25) mg/dL Estimated GFR (>60) mL/min BUN/Creatinine Ratio (6-22) Glucose (80-110) mg/dL Lactate 1.9 (0.7-2.1) mmol/L Calcium (8.4-10.2) mg/dL Magnesium (1.6-2.3) mg/dL Total Bilirubin (0.2-1.3) mg/dL AST (17-59) IU/L ALT (<50) IU/L Alkaline Phosphatase (38-126) U/L Total Creatine Kinase (55-170) U/L CK-MB (CK-2) CK-MB (CK-2) Rel Index Troponin I (0.01-0.034) ng/mL NT-Pro-B Natriuret Pep (<450) pg/mL Total Protein (6.3-8.2) g/dL Albumin (3.5-5.0) g/dL Globulin (1.7-4.1) g/dL Albumin/Globulin Ratio (1.0-2.8) Urine RBC None seen (0-5/HPF) Urine WBC None seen (0-5/HPF) Ur Squamous Epith Cells 0-1 /hpf (0-5/HPF) Urine Bacteria None seen (None) Hyaline Casts 0-1/lpf (None) Ur Culture Indicated? Culture not indicate SARS-CoV-2 (PCR) Negative (Negative) Urine Dip Bedside Urine Glucose Negative Bedside Urine Bilirubin - Negative Bedside Urine Ketone - Negative Urine Specific [place] 1.015 Bedside Urine Occult Blood - Negative Bedside Urine pH 5.5 Bedside Urine Protein + 30 Bedside Urine Urobilinogen - Negative Bedside Urine Nitrite - Negative Bedside Urine Leukocytes - Negative Esterase Discharge Plan Departure Patient Disposition: Home Clinical Impression: Near syncope, Hypomagnesemia Instructions: Magnesium (Alternative Therapy) Activity Restrictions/Additional Instructions: *You have been diagnosed with [near syncope secondary to mild dehydration and hypomagnesemia *What to do: *Please continue to take your regular medications as directed. [ ] New medication prescriptions sent to your pharmacy: [ ] [ ] New medication written as a paper prescription [ x] No new medications given *Please follow up with your primary care provider in 2-3 days, call for an appointment. Let them know you were seen in the Emergency Department and that we ask that you be seen in follow up. We will electronically transmit a record of today's note if your PCP is in our system *If you do not have a primary care provider please contact the [facility] Resource line at [phone]. They will ask some questions about your medical history and help get you set up with a doctor in the community. *Return to Emergency Department if you should have any new, worsening or concerning symptoms, such as [fever greater than 101 F, shaking chills, worsening pain, persistent vomiting or other bothersome symptoms] Prescriptions: No Action acetaminophen-codeine 300-30 mg tablet 1 tab PO Q6H PRN (Reason: Pain (Scale Score 1-3)) 0RF albuterol sulfate 90 mcg/actuation Hfa Aerosol Inhaler 1 puff INHALATION Q4H PRN (Reason: Shortness Of Breath) 0RF gabapentin 600 mg tablet 300 mg PO TID Qty: 0 0RF metformin 500 mg tablet 500 mg PO BEDTIME 0RF magnesium chloride 400 mg PO DAILY 0RF furosemide 20 mg Tablet 20 mg PO DAILY 0RF losartan 100 mg PO DAILY 0RF carbamazepine [Tegretol] 200 mg Tablet 300 mg PO DAILY 0RF clopidogrel 75 mg tablet 75 mg PO DAILY 0RF fluticasone propionate 50 mcg/actuation spray,suspension 50 mcg Intranasal BID 0RF pantoprazole 40 mg tablet,delayed release (DR/EC) 40 mg PO DAILY 0RF tamsulosin 0.4 mg capsule 0.4 mg PO BEDTIME 0RF metformin 500 mg tablet 1,000 mg PO QAM 0RF Referrals: Trinidad Garcia MD [Primary Care Provider] -
[2021-11-12 01:25] LABS: Add Manual Diff / Slide Review NO; Basophils Absolute Auto 100 /uL (0-100); Basophils Percent Auto 0.7 % (0-2); Eosinophils Absolute Auto 200 /uL (0-450); Hematocrit 32.1 % (41-53); Hemoglobin 10.6 g/dL (13.5-17.5); Lymphocytes Absolute Auto 1700 /uL (1100-4500); Lymphocytes Percent Auto 22.7 % (25-40); Mean Corpuscular Hemoglobin 31.8 PG (26-34); Mean Corpuscular Volume 96.4 fL (80-100); Monocytes Absolute Auto 600 /uL (0-900); Monocytes Percent Auto 8.6 % (3-14); Neutrophils Absolute Auto 4800 /uL (1500-7000); Platelet Count 175 X10^3/uL (150-400); Red Blood Cell Count 3.33 X10^6/uL (4.5-5.9); White Blood Cell Count 7.5 X10^3/uL (4.5-11.0)
[2021-11-12 01:28] LABS: INR 3.6 (0.9-1.3); Prothrombin Time 41.7 SECONDS (10.1-12.7)
[2021-11-12 01:35] LABS: Alanine Aminotransferase 58 IU/L (<50); Albumin Globulin Ratio 1.4 (1.0-2.8); Alkaline Phosphatase 57 U/L (38-126); Aspartate Aminotransferase 45 IU/L (17-59); BUN Creatinine Ratio 34.6 (6-22); Bilirubin Total 0.4 mg/dL (0.2-1.3); Blood Urea Nitrogen 37 mg/dL (9-20); Calcium 8.3 mg/dL (8.4-10.2); Carbon Dioxide 24 mmol/L (22-32); Chloride 104 mmol/L (98-107); Creatine Kinase 74 U/L (55-170); Estimated Glomerular Filt Rate > 60 mL/min (>60); Globulin 2.8 g/dL (1.7-4.1); Glucose 132 mg/dL (80-110); HEMOLYSIS 28 (0-50); Lactate (Lactic Acid) 1.9 mmol/L (0.7-2.1); Magnesium 1.2 mg/dL (1.6-2.3); Sodium 140 mmol/L (137-145); Total Protein 6.8 g/dL (6.3-8.2)
[2021-11-12 01:40] LABS: Bacteria Urine None Seen; Hyaline Casts Urine 0-1/LPF; RBC Urine None Seen (0-5/HPF); Squamous Epithelial Cell Urine 0-1 /HPF (0-5/HPF); WBC Urine None Seen (0-5/HPF)
[2021-11-12 01:46] LABS: NT-proBNP (BNP-Adult 18+) 507 pg/mL (<450); Troponin I < 0.012 ng/mL (0.01-0.034)
[2021-11-12] MEDS: MAGNESIUM SULFATE 2 GM/50 ML PIGGYBACK IV (02:19)
[2021-11-12 02:21] LABS: COVID19 -Nasal RAPID Negative (Negative)
[2021-11-12] MEDS: ONDANSETRON 4 MG/2 ML INJ IV (02:34)
--- NOTE | 2021-11-12 03:44 | PC.NURSE ---
pt resting quietly on stretcher with eyes closed resp even and unlabored
--- NOTE | 2021-11-12 04:05 | PC.NURSE ---
pt ambulated with walker denies any dizziness
== END 2021-11-12 04:28 | disposition home or self-care (01) ==
PROVIDERS: Emergency Provider Emergency Medicine; PCP Internal Medicine
DX: R55 Syncope and collapse (principal); E83.42 Hypomagnesemia; R51.9 Headache, unspecified; I10 Essential (primary) hypertension; R42 Dizziness and giddiness; Z20.822 Contact with and (suspected) exposure to COVID-19; Z95.0 Presence of cardiac pacemaker
CPT/HCPCS: 36415; 70450; 71045; 80053; 81003; 81015; 82550; 83605; 83735; 83880; 84484; 85025; 85610; 87040; 87086; 87635; 93005; 96365; 96366; 96375; 99284; 99285; C9803; J2405; J3475

== ENCOUNTER 2021-12-03 20:26 | Observation (INO) | payer OTHER, SELFPAY ==
[2021-09-06 20:05] VITALS: BMI 25.1
[2021-12-03 20:26] VITALS: BP 171/74; PULSE 58; RESP 18; TEMP 36.7; O2SAT 100; BMI 29.5
--- NOTE | 2021-12-03 20:34 | DI.RAD.S_ITS ---
PROCEDURE: XR CHEST 1V INDICATIONS: weak, falls TECHNIQUE: One view of the chest was acquired. COMPARISON: [facility], CR, XR CHEST 1V, 11/12/2021, 1:23. FINDINGS: Surgical changes and devices: Left chest wall AICD and leads appear similar in position. Postsurgical changes redemonstrated in the mediastinum. Lungs and pleura: Visualized lungs are clear. No pleural effusions or pneumothorax. Mediastinum: Mediastinal contours are unchanged. Heart size is enlarged. Bones and chest wall: No suspicious bony lesions. Overlying soft tissues appear unremarkable. IMPRESSION: 1. No acute cardiopulmonary disease. Dictated by: Erick Garcia M.D. on 12/03/2021 at 21:47 Approved by: Erick Garcia M.D. on 12/03/2021 at 21:48
--- NOTE | 2021-12-03 20:34 | DI.RAD.S_ITS ---
PROCEDURE: XR HIP W PEL IF DONE RT 2V INDICATIONS: fall with hip pain TECHNIQUE: AP pelvis with lateral view of the right hip. COMPARISON: None. FINDINGS: Bones: No definite fractures or dislocations. There is mild axial joint space narrowing in the hips bilaterally. Pelvic ring appears intact. No suspicious bony lesions. Soft tissues: The visualized bowel gas pattern is normal. No suspicious soft tissue calcifications. IMPRESSION: 1. No definite fracture or dislocation. If clinical concern persists, further evaluation may be obtained with CT. Dictated by: Erick Garcia M.D. on 12/03/2021 at 22:07 Approved by: Erick Garcia M.D. on 12/03/2021 at 22:08
[2021-12-03 20:55] VITALS: PULSE 63; O2SAT 95
[2021-12-03 21:00] VITALS: PULSE 63; O2SAT 96
[2021-12-03 21:01] VITALS: BP 138/66; PULSE 63; O2SAT 98
[2021-12-03 21:09] LABS: Add Manual Diff / Slide Review NO; Basophils Absolute Auto 0 /uL (0-100); Basophils Percent Auto 0.2 % (0-2); Eosinophils Absolute Auto 200 /uL (0-450); Hematocrit 30.4 % (41-53); Lymphocytes Absolute Auto 1800 /uL (1100-4500); Lymphocytes Percent Auto 18.8 % (25-40); Mean Corpuscular HGB Conc 32.8 % (30-36); Mean Corpuscular Hemoglobin 31.8 PG (26-34); Mean Corpuscular Volume 97.1 fL (80-100); Monocytes Absolute Auto 1000 /uL (0-900); Monocytes Percent Auto 10.5 % (3-14); Neutrophils Absolute Auto 6600 /uL (1500-7000); Neutrophils Percent Auto 68.5 % (50-75); Platelet Count 189 X10^3/uL (150-400); Red Blood Cell Count 3.13 X10^6/uL (4.5-5.9); Red Cell Distribution Width 14.3 % (11.6-14.8); White Blood Cell Count 9.6 X10^3/uL (4.5-11.0)
[2021-12-03 21:16] LABS: INR 2.3 (0.9-1.3); Prothrombin Time 26.7 SECONDS (10.1-12.7)
[2021-12-03 21:19] LABS: PTT Partial Thromboplastin Tim 35 SECONDS (26.4-36.2)
[2021-12-03 21:23] LABS: Alanine Aminotransferase 26 IU/L (<50); Albumin Globulin Ratio 1.4 (1.0-2.8); Alkaline Phosphatase 73 U/L (38-126); Aspartate Aminotransferase 22 IU/L (17-59); Bilirubin Total 0.5 mg/dL (0.2-1.3); Blood Urea Nitrogen 47 mg/dL (9-20); Calcium 8.8 mg/dL (8.4-10.2); Carbon Dioxide 31 mmol/L (22-32); Chloride 102 mmol/L (98-107); Creatine Kinase 123 U/L (55-170); Estimated Glomerular Filt Rate 38 mL/min (>60); Globulin 2.9 g/dL (1.7-4.1); Glucose 206 mg/dL (80-110); HEMOLYSIS < 15 (0-50); Magnesium 1.7 mg/dL (1.6-2.3); Potassium 4.9 mmol/L (3.4-5.1); Sodium 139 mmol/L (137-145); Total Protein 6.9 g/dL (6.3-8.2)
[2021-12-03 21:30] VITALS: BP 135/63; PULSE 63; O2SAT 98
[2021-12-03 21:32] LABS: NT-proBNP (BNP-Adult 18+) 358 pg/mL (<450)
[2021-12-03 21:35] LABS: Troponin I < 0.012 ng/mL (0.01-0.034)
[2021-12-03 21:38] LABS: COVID19 -Nasal RAPID Negative (Negative)
[2021-12-03 21:39] LABS: CKMB % Relative Index 1.2 % (1.5-5.0); Creatine Kinase MB 1.42 ng/mL (<2.37)
[2021-12-03 22:00] VITALS: BP 140/64; PULSE 63; O2SAT 96
--- NOTE | 2021-12-03 22:31 | ED.FALL ---
HPI - Fall General Chief Complaint: Trauma Stated Complaint: leg pain Time Seen by Provider: 12/03/21 20:34 Source: patient and EMS Mode of arrival: EMS History of Present Illness HPI Narrative: 86M nonsmoker with histoer of CAD, HTN, Renal failure, NIDDM with pacemaker on chronic anticoagulation presents by EMS for evaluation of fall with significant right hip pain. Patient had a fall yesterday, stating that he falls frequently and became unsteady. He denies any head neck or back pain. He states that he did not think anything of it initially and had been evaluated by the medics on scene and decided to stay home. Over the course of the day he started developing increasing right hip pain and presents for evaluation. He denies any chest pain or shortness of breath. He denies nausea, vomiting or diarrhea. He denies abdominal pain. He is activated as a modified trauma given fall, age, suspected injury and anticoagulation. Patient is a poor historian but at his neurologic baseline per was at the bedside. He lives at home with her Related Data Home Medications Medication Instructions Recorded Confirmed fluticasone propionate 50 50 mcg INTRANASAL BID 05/06/18 12/04/21 mcg/actuation nasal spray,suspension pantoprazole 40 mg tablet,delayed 40 mg PO DAILY 05/06/18 12/04/21 release tamsulosin 0.4 mg capsule 0.4 mg PO BEDTIME 05/06/18 12/04/21 acetaminophen 300 mg-codeine 30 mg 1 tab PO Q6H PRN 03/31/20 12/04/21 tablet metformin 500 mg tablet 500 mg PO BEDTIME 05/08/21 12/04/21 carbamazepine 200 mg tablet 200 mg PO TID 09/07/21 12/04/21 (Tegretol) furosemide 20 mg tablet 20 mg PO DAILY 09/07/21 12/04/21 losartan 100 mg PO DAILY 09/07/21 12/04/21 magnesium chloride 400 mg PO DAILY 09/07/21 12/04/21 allopurinol 100 mg tablet 100 mg PO DAILY 12/04/21 12/04/21 amlodipine 5 mg tablet 5 mg PO DAILY 12/04/21 12/04/21 atorvastatin 80 mg tablet 80 mg PO BEDTIME 12/04/21 12/04/21 clopidogrel 75 mg tablet (Plavix) 75 mg PO DAILY 12/04/21 12/04/21 fluticasone 250 mcg-salmeterol 50 1 inh INHALATION BID 12/04/21 12/04/21 mcg/dose blistr powdr for inhalation (Advair Diskus) metoprolol succinate 100 mg 100 mg PO BID 12/04/21 12/04/21 tablet,extended release 24 hr penicillin V potassium 500 mg 500 mg PO Q6HR 12/04/21 12/04/21 tablet warfarin 5 mg tablet 10 mg PO USEASDIRECTD 12/04/21 12/04/21 Previous Rx's Medication Instructions Recorded gabapentin 600 mg tablet 300 mg PO TID #0 tab 04/02/20 Allergies Allergy/AdvReac Type Severity Reaction Status Date / Time tolmetin Allergy Severe Anaphylaxis Verified 12/03/21 20:35 Review of Systems Review of Systems Narrative: GENERAL: Denies chills, fatigue, malaise, fever, sweats. HEENT: Denies sinus pain, ear pain, sore throat, difficulty swallowing, dizziness. RESPIRATORY: Denies dyspnea, cough, wheezing, hemoptysis, sputum. CARDIOVASCULAR: Denies chest pain, palpitations, orthopnea, edema, GASTROINTESTINAL: Denies nausea, vomiting, abdominal pain, diarrhea, constipation, melena. : Denies dysuria, frequency, incontinence, hematuria, urinary retention. MUSCULOSKELETAL: See HPI SKIN: Denies rash, skin lesions, or other NEUROLOGIC: See HPI PSYCHIATRIC: No concerning psychosocial issues. 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 Well-developed patient, in mild distress. Pleasantly confused GCS 14 HEAD: Atraumatic. Normocephalic. EYES: Pupils equal round and reactive. Extraocular motions intact. No scleral icterus. No injection or drainage. ENT: Nose without bleeding, purulent drainage. Throat without erythema, tonsillar hypertrophy or exudate. Airway patent. NECK: Trachea midline. Non tender CARDIOVASCULAR: Regular rate and rhythm without murmurs, gallops, or rubs. RESPIRATORY: Clear to auscultation. Breath sounds equal bilaterally. No wheezes, rales, or rhonchi. GASTROINTESTINAL: Abdomen soft, non-tender, nondistended. EXTREMITIES: No edema or joint tenderness. Minimal pain on palpation of right hip, no pain with axial loading or internal, external rotation, there is of moderate lateral hematoma that is only mildly tense BACK: Nontender without deformity or crepitance. No flank tenderness. NEURO: AOx3. Cranial nerves 2-12 grossly intact, patient can barely lift his right leg off the cart, not obviously due to pain but perceived weakness. No saddle anesthesia SKIN: No rash or erythema of visible areas Initial Vital Signs Initial Vital Signs: Vital Signs Temperature 98.1 F 12/03/21 20:26 Pulse Rate 58 L 12/03/21 20:26 Respiratory Rate 18 12/03/21 20:26 Blood Pressure 171/74 H 12/03/21 20:26 Pulse Oximetry 100 12/03/21 20:26 Course Orders Ordered: ED Orders 12/03/21 20:34 Chest [XR chest 1V] Stat XR hip w pel if done RT 2V Stat 12/03/21 21:00 COVID19 -Nasal RAPID/Pre-Proc Stat Complete Blood Count AUTO DIFF Stat Comprehensive Metabolic Panel Stat Magnesium Stat NT-proBNP (BNP-Adult 18+) Stat Partial Thromboplastin Time Stat Prothrombin Time INR Stat Troponin & CK Cardiac Panel Stat 12/03/21 22:36 CT head/brain wo con Stat CT pelvis wo con Stat Acetaminophen (Acetaminophen 325 Mg Tablet) 650 mg PO Q6HR PRN PRN Reason: Fever/Mild Pain (1-3) Allopurinol (Allopurinol 100 Mg Tablet) 100 mg PO DAILY ANDREI Amlodipine Besylate (Amlodipine 5 Mg Tablet) 5 mg PO DAILY [facility] Atorvastatin Calcium (Atorvastatin 20 Mg Tablet) 80 mg PO BEDTIME [facility] Carbamazepine (Carbamazepine 200 Mg Tablet) 200 mg PO TID [facility] Clopidogrel Bisulfate (Clopidogrel 75 Mg Tablet) 75 mg PO DAILY [facility] Dextrose (Dextrose 50 % In Water 25 Gm/50 Ml Syringe) 25 gm IV PRN PRN PRN Reason: Hypoglycemia Gabapentin (Gabapentin 600 Mg Tablet) 300 mg PO TID [facility] Insulin Glargine (Insulin Glargine 100 Unit/Ml 3ml Pen) 5 unit SUBCUT 0800 [facility] Insulin Human Lispro (Insulin Lispro 100 Unit/Ml 3ml Vial) 0 unit SUBCUT ACHS ANDREI; Protocol Losartan Potassium (Losartan 50 Mg Tablet) 100 mg PO DAILY [facility] Metoprolol Succinate (Metoprolol Er 50 Mg Tablet) 100 mg PO BID [facility] Morphine Sulfate (Morphine 2 Mg/Ml Inj) 2 mg IV Q4H PRN PRN Reason: Breakthrough pain only (8-10) Naloxone HCl (Naloxone 0.4 Mg/Ml Vial) 0.2 mg IV Q2MIN PRN PRN Reason: Opiate Reversal Ondansetron HCl (Ondansetron 4 Mg/2 Ml Inj) 4 mg IV Q8HR PRN PRN Reason: Nausea And Vomiting Pantoprazole Sodium (Pantoprazole Dr 40 Mg Tablet) 40 mg PO DAILY [facility] Tamsulosin HCl (Tamsulosin 0.4 Mg Capsule) 0.4 mg PO BEDTIME [facility] Warfarin Sodium (Warfarin 5 Mg Tablet) 10 mg PO MoTuWeThFrSa@1700 [facility] Warfarin Sodium (Warfarin 5 Mg Tablet) 15 mg PO Moreno@1700 [facility] Discontinued Medications Sodium Chloride (Normal Saline 0.9%) 1,000 mls @ 125 mls/hr IV CONT [facility] Last Infusion: 12/04/21 01:43 Dose: 0 mls/hr Documented by: Admin: 12/04/21 00:12 Dose: 125 mls/hr Documented by: EPIFANIO Warfarin Sodium (Warfarin 5 Mg Tablet) 10 mg PO USEASDIRECTD [facility] Vital Signs Vital signs: Vital Signs - 8 hr 12/03/21 20:55 12/03/21 21:00 12/03/21 21:01 Pulse Rate 63 63 63 Blood Pressure 138/66 Pulse Oximetry 95 96 98 12/03/21 21:30 12/03/21 22:00 Pulse Rate 63 63 Blood Pressure 135/63 140/64 Pulse Oximetry 98 96 - Fall Lab Data Result diagrams: 12/03/21 21:00 12/03/21 21:00 Labs: Lab Results 12/03/21 12/03/21 12/03/21 Range/Units 21:00 21:00 21:00 WBC 9.6 (4.5-11.0) X10^3/uL RBC 3.13 L (4.5-5.9) X10^6/uL Hgb 10.0 L (13.5-17.5) g/dL Hct 30.4 L (41-53) % MCV 97.1 (80-100) fL MCH 31.8 (26-34) PG MCHC 32.8 (30-36) % RDW 14.3 (11.6-14.8) % Plt Count 189 (150-400) X10^3/uL Neut % (Auto) 68.5 (50-75) % Lymph % (Auto) 18.8 L (25-40) % Chase % (Auto) 10.5 (3-14) % Eos % (Auto) 2.0 (2-4) % Baso % (Auto) 0.2 (0-2) % Neut # (Auto) 6600 (9962-0820) /uL Lymph # (Auto) 1800 (1924-4680) /uL Chase # (Auto) 1000 H (0-900) /uL Eos # (Auto) 200 (0-450) /uL Baso # (Auto) 0 (0-100) /uL PT 26.7 H (10.1-12.7) SECONDS INR 2.3 H (0.9-1.3) APTT 35 (26.4-36.2) SECONDS Sodium 139 (137-145) mmol/L Potassium 4.9 (3.4-5.1) mmol/L Chloride 102 (98-107) mmol/L Carbon Dioxide 31 (22-32) mmol/L BUN 47 H (9-20) mg/dL Creatinine 1.74 H (0.66-1.25) mg/dL Estimated GFR 38 L (>60) mL/min BUN/Creatinine Ratio 27.0 H (6-22) Glucose 206 H (80-110) mg/dL Calcium 8.8 (8.4-10.2) mg/dL Magnesium 1.7 (1.6-2.3) mg/dL Total Bilirubin 0.5 (0.2-1.3) mg/dL AST 22 (17-59) IU/L ALT 26 (<50) IU/L Alkaline Phosphatase 73 (38-126) U/L Total Creatine Kinase (55-170) U/L CK-MB (CK-2) (<2.37) ng/mL CK-MB (CK-2) Rel Index (1.5-5.0) % Troponin I (0.01-0.034) ng/mL NT-Pro-B Natriuret Pep 358 (<450) pg/mL Total Protein 6.9 (6.3-8.2) g/dL Albumin 4.0 (3.5-5.0) g/dL Globulin 2.9 (1.7-4.1) g/dL Albumin/Globulin Ratio 1.4 (1.0-2.8) SARS-CoV-2 (PCR) (Negative) 12/03/21 12/03/21 Range/Units 21:00 21:00 WBC (4.5-11.0) X10^3/uL RBC (4.5-5.9) X10^6/uL Hgb (13.5-17.5) g/dL Hct (41-53) % MCV (80-100) fL MCH (26-34) PG MCHC (30-36) % RDW (11.6-14.8) % Plt Count (150-400) X10^3/uL Neut % (Auto) (50-75) % Lymph % (Auto) (25-40) % Chase % (Auto) (3-14) % Eos % (Auto) (2-4) % Baso % (Auto) (0-2) % Neut # (Auto) (0357-4510) /uL Lymph # (Auto) (2116-9616) /uL Chase # (Auto) (0-900) /uL Eos # (Auto) (0-450) /uL Baso # (Auto) (0-100) /uL PT (10.1-12.7) SECONDS INR (0.9-1.3) APTT (26.4-36.2) SECONDS Sodium (137-145) mmol/L Potassium (3.4-5.1) mmol/L Chloride (98-107) mmol/L Carbon Dioxide (22-32) mmol/L BUN (9-20) mg/dL Creatinine (0.66-1.25) mg/dL Estimated GFR (>60) mL/min BUN/Creatinine Ratio (6-22) Glucose (80-110) mg/dL Calcium (8.4-10.2) mg/dL Magnesium (1.6-2.3) mg/dL Total Bilirubin (0.2-1.3) mg/dL AST (17-59) IU/L ALT (<50) IU/L Alkaline Phosphatase (38-126) U/L Total Creatine Kinase 123 (55-170) U/L CK-MB (CK-2) 1.42 (<2.37) ng/mL CK-MB (CK-2) Rel Index 1.2 L (1.5-5.0) % Troponin I < 0.012 (0.01-0.034) ng/mL NT-Pro-B Natriuret Pep (<450) pg/mL Total Protein (6.3-8.2) g/dL Albumin (3.5-5.0) g/dL Globulin (1.7-4.1) g/dL Albumin/Globulin Ratio (1.0-2.8) SARS-CoV-2 (PCR) Negative (Negative) Imaging Data CT scan - head: Radiologist's Impression: [address] [address] [address] Scan Report Signed Patient: Winston Houston MR#: [id number] : 1935 Acct:[id number] Age/Sex: 86 / M Date of Service: 12/03/21 Loc: ED Accession Number: [id number] ?? Procedure: CT head/brain wo con Ordering Provider: Igor Schulte D.O. PROCEDURE:? CT HEAD/BRAIN WO CON ? INDICATIONS:? fall, cannot use right leg ? TECHNIQUE:? Noncontrast 4.5 mm thick angled axial sections acquired from the foramen magnum to the vertex, with coronal and sagittal reformats.? For radiation dose reduction, the following was used:? automated exposure control, adjustment of mA and/or kV according to patient size.? ? COMPARISON:? [facility], CT, CT HEAD/BRAIN WO CON, 11/12/2021, 0:48. ? FINDINGS:? Image quality:? Excellent.? ? CSF spaces:? Basal cisterns are patent.? No extra-axial fluid collections.? There is moderate cerebral volume loss, with resultant ventricular and sulcal prominence.? ? Brain:? No intracranial hemorrhage, mass, or mass effect.? There are subcortical, periventricular and deep white matter hypodensities consistent with moderate chronic small vessel ischemic changes.? There is encephalomalacia redemonstrated in the left cerebellar hemisphere.? There is intracranial internal carotid artery atherosclerosis.? ? Skull and face:? Calvarium and visualized facial bones demonstrate no acute fractures.? There are postsurgical changes redemonstrated status post left occipital craniotomy. ? Sinuses:? Visualized sinuses demonstrate postsurgical changes and near-complete mucosal opacification of the left maxillary sinus which is new compared to the prior study.? There is also moderate mucosal thickening in the right maxillary and left sphenoid sinuses.? There is complete opacification of the right renal sinus redemonstrated.? Mild mucosal thickening also demonstrated in the ethmoid sinuses.? There is partial fluid opacification of the left mastoid air cells suggestive of mastoiditis. ? IMPRESSION:? ? 1. No definite acute intracranial abnormality. ? 2. Postsurgical changes redemonstrated status post left occipital craniotomy with associated region of encephalomalacia in the left cerebellar hemisphere. ? 3. Moderate cerebral volume loss and chronic white matter small vessel ischemic changes. ? 4. Postsurgical changes redemonstrated in the sinuses with extensive sinus mucosal disease including near-complete opacification of the left maxillary sinus which is new compared to the prior study.? No definite associated sinus wall fracture identified.? ? ? Dictated by: Erick Garcia M.D. on 12/03/2021 at 23:10 ? ? Approved by: Erick Garcia M.D. on 12/03/2021 at 23:16 ? CT scan - abdomen/pelvis: Radiologist's Impression: [place]?[address] [address] [address] Scan Report Signed Patient: Winston Houston MR#: [id number] : 1935 Acct:[id number] Age/Sex: 86 / M Date of Service: 12/03/21 Loc: ED Accession Number: [id number] ?? Procedure: CT pelvis wo con Ordering Provider: Igor Schulte D.O. PROCEDURE:? CT PEL WO CON ? INDICATIONS:? fall, cannot use right leg, pain in hip ? TECHNIQUE:? Noncontrast 3 mm axial sections acquired through the bony pelvis, with coronal and sagittal reformatting.? ? COMPARISON:? None. ? FINDINGS:? Image quality:? Excellent.? ? Bones:? No fractures or dislocation.? There is moderate superior joint space narrowing in the hips bilaterally.? The bony pelvis appears intact.? Visualized lower lumbar spine demonstrates moderate to severe degenerative disc disease at L4-5 and L5-S1 as well as moderate facet arthropathy. ? Soft tissues:? There is mild periarticular edema along the right hip.? There is asymmetric enlargement and edema of the visualized anterior muscle compartment of the right thigh likely representing an intramuscular hematoma. ? No intraperitoneal free fluid within the visualized pelvis.? There is prominent distention of the urinary bladder.? The prostate demonstrates moderate enlargement. ? ? IMPRESSION:? ? 1. No definite fractures. ? 2. Asymmetric enlargement and edema involving the anterior compartment of the right thigh consistent with an intramuscular hematoma.? The finding is incompletely included on the current study.? Dictated by: Erick Garcia M.D. on 12/03/2021 at 23:36 ? ? Approved by: Erick Garcia M.D. on 12/03/2021 at 23:40 ? Abdominal x-ray: Radiologist's Impression: [place] [address] XRay Report Signed Patient: Winston Houston MR#: [id number] : 1935 Acct:[id number] Age/Sex: 86 / M Date of Service: 12/03/21 Loc: ED Accession Number: [id number] ?? Procedure: XR hip w pel if done RT 2V Ordering Provider: Igor Schulte D.O. PROCEDURE:? XR HIP W PEL IF DONE RT 2V ? INDICATIONS:? fall with hip pain ? TECHNIQUE:? AP pelvis with lateral view of the right hip. ? COMPARISON:? None. ? FINDINGS:? ? Bones:? No definite fractures or dislocations.? There is mild axial joint space narrowing in the hips bilaterally.? Pelvic ring appears intact.? No suspicious bony lesions.? ? Soft tissues:? The visualized bowel gas pattern is normal.? No suspicious soft tissue calcifications.? ? ? IMPRESSION:? ? 1. No definite fracture or dislocation. ? If clinical concern persists, further evaluation may be obtained with CT. ? Dictated by: Erick Garcia M.D. on 12/03/2021 at 22:07 ? ? Approved by: Erick Garcia M.D. on 12/03/2021 at 22:08 ? Chest x-ray: Radiologist's Impression: [address] [address] XRay Report Signed Patient: Winston Houston MR#: [id number] : 1935 Acct:[id number] Age/Sex: 86 / M Date of Service: 12/03/21 Loc: ED Accession Number: [id number] ?? Procedure: XR hip w pel if done RT 2V Ordering Provider: Igor Schulte D.O. PROCEDURE:? XR HIP W PEL IF DONE RT 2V ? INDICATIONS:? fall with hip pain ? TECHNIQUE:? AP pelvis with lateral view of the right hip. ? COMPARISON:? None. ? FINDINGS:? ? Bones:? No definite fractures or dislocations.? There is mild axial joint space narrowing in the hips bilaterally.? Pelvic ring appears intact.? No suspicious bony lesions.? ? Soft tissues:? The visualized bowel gas pattern is normal.? No suspicious soft tissue calcifications.? ? ? IMPRESSION:? ? 1. No definite fracture or dislocation. ? If clinical concern persists, further evaluation may be obtained with CT. ? Dictated by: Erick Garcia M.D. on 12/03/2021 at 22:07 ? ? Approved by: Erick Garcia M.D. on 12/03/2021 at 22:08 ? [facility] Narrative Medical decision making narrative: Male with extensive medical history presents for evaluation of right hip pain after a fall yesterday. Imaging is largely reassuring and there is no evidence of head injury nor bony abnormality of the pelvis or hip. On exam he is largely at baseline though a right lateral thigh hematoma is noted. Patient can walk at baseline and was able to do so up until a few days ago. He now has notable weakness in his right lower extremity which seems to be out of proportion to the pain that may be associated. There is no evidence of stroke and he is certainly out of any time frame for intervention. Patient unable to go home as he is unable to ambulate Discharge Plan Departure Patient Disposition: Admitted as Observation Clinical Impression: Weakness, Right leg weakness, Acute kidney injury Admit Date/Time: 12/04/21 00:57 Admit Provider: Vanessa Pham
--- NOTE | 2021-12-03 22:36 | DI.CT.S_ITS ---
PROCEDURE: CT HEAD/BRAIN WO CON INDICATIONS: fall, cannot use right leg TECHNIQUE: Noncontrast 4.5 mm thick angled axial sections acquired from the foramen magnum to the vertex, with coronal and sagittal reformats. For radiation dose reduction, the following was used: automated exposure control, adjustment of mA and/or kV according to patient size. COMPARISON: [facility], CT, CT HEAD/BRAIN WO CON, 11/12/2021, 0:48. FINDINGS: Image quality: Excellent. CSF spaces: Basal cisterns are patent. No extra-axial fluid collections. There is moderate cerebral volume loss, with resultant ventricular and sulcal prominence. Brain: No intracranial hemorrhage, mass, or mass effect. There are subcortical, periventricular and deep white matter hypodensities consistent with moderate chronic small vessel ischemic changes. There is encephalomalacia redemonstrated in the left cerebellar hemisphere. There is intracranial internal carotid artery atherosclerosis. Skull and face: Calvarium and visualized facial bones demonstrate no acute fractures. There are postsurgical changes redemonstrated status post left occipital craniotomy. Sinuses: Visualized sinuses demonstrate postsurgical changes and near-complete mucosal opacification of the left maxillary sinus which is new compared to the prior study. There is also moderate mucosal thickening in the right maxillary and left sphenoid sinuses. There is complete opacification of the right renal sinus redemonstrated. Mild mucosal thickening also demonstrated in the ethmoid sinuses. There is partial fluid opacification of the left mastoid air cells suggestive of mastoiditis. IMPRESSION: 1. No definite acute intracranial abnormality. 2. Postsurgical changes redemonstrated status post left occipital craniotomy with associated region of encephalomalacia in the left cerebellar hemisphere. 3. Moderate cerebral volume loss and chronic white matter small vessel ischemic changes. 4. Postsurgical changes redemonstrated in the sinuses with extensive sinus mucosal disease including near-complete opacification of the left maxillary sinus which is new compared to the prior study. No definite associated sinus wall fracture identified. Dictated by: Erick Garcia M.D. on 12/03/2021 at 23:10 Approved by: Erick Garcia M.D. on 12/03/2021 at 23:16
--- NOTE | 2021-12-03 22:36 | DI.CT.S_ITS ---
PROCEDURE: CT PEL WO CON INDICATIONS: fall, cannot use right leg, pain in hip TECHNIQUE: Noncontrast 3 mm axial sections acquired through the bony pelvis, with coronal and sagittal reformatting. COMPARISON: None. FINDINGS: Image quality: Excellent. Bones: No fractures or dislocation. There is moderate superior joint space narrowing in the hips bilaterally. The bony pelvis appears intact. Visualized lower lumbar spine demonstrates moderate to severe degenerative disc disease at L4-5 and L5-S1 as well as moderate facet arthropathy. Soft tissues: There is mild periarticular edema along the right hip. There is asymmetric enlargement and edema of the visualized anterior muscle compartment of the right thigh likely representing an intramuscular hematoma. No intraperitoneal free fluid within the visualized pelvis. There is prominent distention of the urinary bladder. The prostate demonstrates moderate enlargement. IMPRESSION: 1. No definite fractures. 2. Asymmetric enlargement and edema involving the anterior compartment of the right thigh consistent with an intramuscular hematoma. The finding is incompletely included on the current study. Dictated by: Erick Garcia M.D. on 12/03/2021 at 23:36 Approved by: Erick Garcia M.D. on 12/03/2021 at 23:40
[2021-12-04] VITALS (14 sets, daily range): BP systolic 109–169; BP diastolic 67–76; PULSE 59–61; RESP 14–18; TEMP 35.9–36.8; O2SAT 95–100; BMI 29.5
[2021-12-04] MEDS: SODIUM CHLORIDE 0.9% 1,000 ML 125 ML IV (00:12)
--- NOTE | 2021-12-04 04:11 | P.HP_ITS ---
History of Present Illness History of Present Illness Date Patient Seen: 12/04/21 Time Patient Seen: 03:45 Chief complaint: leg pain Narrative: Winston Houston is an 86-year-old male with a history of coronary artery disease in, chronic kidney disease stage 3, diabetes type 2 poorly controlled, history of ischemic cardiomyopathy with the ejection fraction of approximately 25-35% in early 2020, and improved to 45 to 50% in 2021, and anticoagulated on warfarin, took a fall 2 days ago at home and apparently has been unable to bear weight on his right leg. He was found to have a hematoma however it all of the imaging studies in the emergency department did not indicate any hip fracture. He denies chest pain, shortness of breath, loss of consciousness or hitting his head, vision changes, nausea vomiting, or changes in bowel or bladder control. With the exception of pelvis CT which indicated a intramuscular hematoma, head CT, hip x-ray, and chest x-ray were all negative for any pathology. He is afebrile, blood pressure 146/76, heart rate 60 respiratory rate 16, oxygen saturation of 100% on room air, he weighs 89.1 kg with a BMI of 29.5. Is mildly anemic with hemoglobin and hematocrit of 10.4 and 31.2 respectively, platelet count is 188, PT INR is 2.3 and 26.4, creatinine is 1.43 with the EGFR of 48, glucose is 200, with an A1c of 7.2, COVID-19 PCR is negative. Patient History Medical History Bleeding ulcer Chronic anticoagulation Chronic gout Chronic kidney disease (CKD) stage G3a/A1, moderately decreased glomerular filtration rate (GFR) between 45-59 mL/min/1.73 square meter and albuminuria creatinine ratio less than 30 mg/g Diabetes type 2, controlled Heart attack Hyperlipidemia Hypertension Left bundle branch block Presence of combination internal cardiac defibrillator (ICD) and pacemaker Right leg weakness 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 Thyroid nodule Surgical History H/O sinus surgery History of brain surgery History of cholecystectomy S/P CABG x 4 Family & Social History Social History: household members spouse Safety & Behavioral: Feels Safe in Current Yes Environment Been Physically Hurt or No Threatened By a Person Tobacco & Substance use: Smoking Status Never smoker alcohol intake never alcohol intake frequency 0-2 drinks per day Substance Use Type does not use Meds Home Medications and Allergies Home Medications Medication Instructions Recorded Confirmed Type fluticasone propionate 50 50 mcg INTRANASAL BID 05/06/18 12/04/21 History mcg/actuation nasal spray,suspension pantoprazole 40 mg tablet,delayed 40 mg PO DAILY 05/06/18 12/04/21 History release tamsulosin 0.4 mg capsule 0.4 mg PO BEDTIME 05/06/18 12/04/21 History acetaminophen 300 mg-codeine 30 mg 1 tab PO Q6H PRN 03/31/20 12/04/21 History tablet gabapentin 600 mg tablet 300 mg PO TID #0 tab 04/02/20 12/04/21 Rx metformin 500 mg tablet 500 mg PO BEDTIME 05/08/21 12/04/21 History carbamazepine 200 mg tablet 200 mg PO TID 09/07/21 12/04/21 History (Tegretol) furosemide 20 mg tablet 20 mg PO DAILY 09/07/21 12/04/21 History losartan 100 mg PO DAILY 09/07/21 12/04/21 History magnesium chloride 400 mg PO DAILY 09/07/21 12/04/21 History allopurinol 100 mg tablet 100 mg PO DAILY 12/04/21 12/04/21 History amlodipine 5 mg tablet 5 mg PO DAILY 12/04/21 12/04/21 History atorvastatin 80 mg tablet 80 mg PO BEDTIME 12/04/21 12/04/21 History clopidogrel 75 mg tablet (Plavix) 75 mg PO DAILY 12/04/21 12/04/21 History fluticasone 250 mcg-salmeterol 50 1 inh INHALATION BID 12/04/21 12/04/21 History mcg/dose blistr powdr for inhalation (Advair Diskus) metoprolol succinate 100 mg 100 mg PO BID 12/04/21 12/04/21 History tablet,extended release 24 hr penicillin V potassium 500 mg 500 mg PO Q6HR 12/04/21 12/04/21 History tablet warfarin 5 mg tablet 10 mg PO USEASDIRECTD 12/04/21 12/04/21 History Allergies Allergy/AdvReac Type Severity Reaction Status Date / Time tolmetin Allergy Severe Anaphylaxis Verified 12/03/21 20:35 Review of Systems Review of Systems ROS: Yes All systems reviewed with the patient and are negative except as otherwise documented Exam Vital Signs (past 8 hours): - 12/03/21 20:26 12/03/21 20:55 12/03/21 21:00 Temperature 98.1 F Pulse Rate 58 L 63 63 Respiratory Rate 18 Blood Pressure 171/74 H Pulse Oximetry 100 95 96 12/03/21 21:01 12/03/21 21:30 12/03/21 22:00 Temperature Pulse Rate 63 63 63 Respiratory Rate Blood Pressure 138/66 135/63 140/64 Pulse Oximetry 98 98 96 Oxygen Delivery Method Room Air Narrative Exam Narrative: Gen: Alert, oriented, chronically ill-appearing 86 y.o. male, appears to be lethargic HEENT: normocephalic, atraumatic, conjunctiva clear, sclera non-icteric, oral mucosa pink and moist Neck: supple, full ROM, no JVD, trachea is midline Resp: Lungs CTA, non-labored breathing CV: RRR, no murmur or rubs Abd: soft, non-tender, normoactive BTs Skin: Has a very large hematoma on the right medial thigh, no lesions or rashes, dry and intact Neuro: Very hard of hearing, Alert and oriented X 4 w/no focal deficits. Speech clear and coherent. Extremities: moves all 4 extremities, is ambulatory, negative Handy?s sign Psyche: normal mood and affect. Objective Labs Result Diagrams: 12/04/21 05:15 12/04/21 05:15 Labs: Laboratory Results - last 24 hr 12/03/21 12/03/21 12/03/21 21:00 21:00 21:00 WBC 9.6 RBC 3.13 L Hgb 10.0 L Hct 30.4 L MCV 97.1 MCH 31.8 MCHC 32.8 RDW 14.3 Plt Count 189 Neut % (Auto) 68.5 Lymph % (Auto) 18.8 L [place] % (Auto) 10.5 Eos % (Auto) 2.0 Baso % (Auto) 0.2 Neut # (Auto) 6600 Lymph # (Auto) 1800 [place] # (Auto) 1000 H Eos # (Auto) 200 Baso # (Auto) 0 PT 26.7 H INR 2.3 H APTT 35 Sodium 139 Potassium 4.9 Chloride 102 Carbon Dioxide 31 BUN 47 H Creatinine 1.74 H Estimated GFR 38 L BUN/Creatinine Ratio 27.0 H Glucose 206 H Calcium 8.8 Magnesium 1.7 Total Bilirubin 0.5 AST 22 ALT 26 Alkaline Phosphatase 73 Total Creatine Kinase CK-MB (CK-2) CK-MB (CK-2) Rel Index Troponin I NT-Pro-B Natriuret Pep 358 Total Protein 6.9 Albumin 4.0 Globulin 2.9 Albumin/Globulin Ratio 1.4 SARS-CoV-2 (PCR) 12/03/21 12/03/21 21:00 21:00 WBC RBC Hgb Hct MCV MCH MCHC RDW Plt Count Neut % (Auto) Lymph % (Auto) [place] % (Auto) Eos % (Auto) Baso % (Auto) Neut # (Auto) Lymph # (Auto) [place] # (Auto) Eos # (Auto) Baso # (Auto) PT INR APTT Sodium Potassium Chloride Carbon Dioxide BUN Creatinine Estimated GFR BUN/Creatinine Ratio Glucose Calcium Magnesium Total Bilirubin AST ALT Alkaline Phosphatase Total Creatine Kinase 123 CK-MB (CK-2) 1.42 CK-MB (CK-2) Rel Index 1.2 L Troponin I < 0.012 NT-Pro-B Natriuret Pep Total Protein Albumin Globulin Albumin/Globulin Ratio SARS-CoV-2 (PCR) Negative Assessment & Plan Assessment & Plan narrative: Winston Houston will be observed and evaluated for right lower extremity weakness. 1. Right lower extremity weakness, acute and present on admission * Have ordered PT, patient states may refuse, but wants to be well enough to make it to his '[birth year] birthday next week. * Nursing has been icing it 2. CAD, chronic * Ejection fraction has improved over the year from 25-35% to 45-50% * Continue home dose of atorvastatin 80 mg po daily * INR is therapeutic at 2.3 continue alternating regimen of warfarin 10 mg today * Continue clopidogrel 75 mg po daily 3. Essential hypertension, appears to be well controlled * Continue home dose of amlodipine 5 mg daily * Continue home dose of losartan 100 mg daily and metoprolol ER 100 mg po daily 4. Diabetes type 2 poorly controlled with an A1c of 7.2 * Metformin is held * Have stated basal glargine 5 units and medium dose correctional scale ACHS 5. BPH, chronic * Continue home dose of tamsulosin 0.4 mg hs 6. Gout * Continue home dose of allupurinol 100 mg po daily, consider stopping in the setting of CKD 7. CKD stage 3. * Monitor renal function daily * Have held fluids as he is at risk for volume overload. VTE Prophylaxis: Wells risk score 3.0 X Bilateral SCDs Patient is currently anticoagulated and therapeutic on warfarin. Patient is placed into observation as his stay is not expected to exceed 2 midnights. FEN: IV fluids: saline lock, diet: heart healthy, labs: CBC, C/BMP, liver enzymes, Mag, PT/INR Consultants None Dispo: probable discharge to home Code status: Limited code, no intubation as discussed with the patient who identifies his [place] as his surrogate and POA. [X] I have utilized all available immediate resources to obtain, update, or review of the patient's current medications COVID-19 COVID-19 status: Negative Result date/Date tested (Pos, Neg/Pending): 12/04/21 Time Spent With Patient Critical Care time: I spent a total of [] minutes of critical care time on this patient's care today; this time is exclusive of procedural time. Scores Wells' Criteria for PE Clinical signs and symptoms of DVT: No PE is #1 Dx or equally likely: No Heart rate > 100: No Immobilization at least 3 days or surg in previous 4 weeks: Yes History of PE or DVT: Yes Hemoptysis: No Malignancy w/Treatment within 6 months or palliative: No Wells' PE Score total: 3.0 Quality VTE Deep Vein Thrombosis/Pulmonary Embolism Present on Admission: No MIPS - Admit I confirm the patient?s Advance Care Plan is present, Code status is documented, Surrogate decision maker is in patient?s record [If Yes, STOP here]: Yes MIPS - DC The patient has current or prior documentation of left ventricular ejection fraction (LVEF) less than 40%, or moderate or severely depressed left ventricu lar systolic function.: Yes A. The patient was prescribed or already taking an Angiotensin-Converting Enzyme (RONALD) Inhibitor, or Angiotensin Receptor Ab (ARB).: Yes B. The patient was prescribed or already taking a beta-ab. [If Yes to Both A & B, STOP here]: Yes
[2021-12-04 05:40] LABS: INR 2.3 (0.9-1.3); Prothrombin Time 26.4 SECONDS (10.1-12.7)
[2021-12-04 05:48] LABS: Alanine Aminotransferase 25 IU/L (<50); Albumin Globulin Ratio 1.4 (1.0-2.8); Alkaline Phosphatase 79 U/L (38-126); Aspartate Aminotransferase 21 IU/L (17-59); BUN Creatinine Ratio 29.4 (6-22); Bilirubin Total 0.6 mg/dL (0.2-1.3); Bilirubin Unconjugated 0.4 mg/dL (0.0-1.1); Blood Urea Nitrogen 42 mg/dL (9-20); Calcium 8.6 mg/dL (8.4-10.2); Carbon Dioxide 28 mmol/L (22-32); Chloride 102 mmol/L (98-107); Estimated Glomerular Filt Rate 48 mL/min (>60); Globulin 2.9 g/dL (1.7-4.1); Glucose 200 mg/dL (80-110); HEMOLYSIS < 15 (0-50); Potassium 4.9 mmol/L (3.4-5.1); Sodium 138 mmol/L (137-145); Total Protein 6.9 g/dL (6.3-8.2)
[2021-12-04 06:20] LABS: Add Manual Diff / Slide Review NO; Basophils Absolute Auto 0 /uL (0-100); Basophils Percent Auto 0.3 % (0-2); Eosinophils Absolute Auto 200 /uL (0-450); Eosinophils Percent Auto 2.4 % (2-4); Hematocrit 31.2 % (41-53); Hemoglobin 10.4 g/dL (13.5-17.5); Lymphocytes Absolute Auto 1600 /uL (1100-4500); Lymphocytes Percent Auto 17.9 % (25-40); Mean Corpuscular HGB Conc 33.4 % (30-36); Mean Corpuscular Hemoglobin 32.2 PG (26-34); Mean Corpuscular Volume 96.2 fL (80-100); Monocytes Absolute Auto 900 /uL (0-900); Monocytes Percent Auto 10.5 % (3-14); Neutrophils Absolute Auto 6200 /uL (1500-7000); Neutrophils Percent Auto 68.9 % (50-75); Platelet Count 188 X10^3/uL (150-400); Red Blood Cell Count 3.25 X10^6/uL (4.5-5.9); White Blood Cell Count 8.9 X10^3/uL (4.5-11.0)
[2021-12-04 06:59] LABS: Hemoglobin A1C% w Est Avg Glu 7.2 % (4.0-6.0)
[2021-12-04] MEDS: GABAPENTIN 600 MG TABLET 300 MG PO ×3 (08:34→21:18)
[2021-12-04] MEDS: AMLODIPINE 5 MG TABLET PO (08:34)
[2021-12-04] MEDS: PANTOPRAZOLE DR 40 MG TABLET PO (08:34)
[2021-12-04] MEDS: METOPROLOL ER 50 MG TABLET 100 MG PO ×2 (08:34→21:17)
[2021-12-04] MEDS: LOSARTAN 50 MG TABLET 100 MG PO (08:34)
[2021-12-04] MEDS: CLOPIDOGREL 75 MG TABLET PO (08:34)
[2021-12-04] MEDS: allopurinoL 100 MG TABLET PO (08:34)
[2021-12-04] MEDS: carBAMazepine 200 MG TABLET PO ×3 (08:36→21:19)
[2021-12-04] MEDS: INSULIN LISPRO 100 UNIT/ML 3ML VIAL SUBCUT ×3 (09:06→17:24)
[2021-12-04] MEDS: INSULIN GLARGINE 100 UNIT/ML 3ML PEN SUBCUT (09:06)
--- NOTE | 2021-12-04 09:35 | PT.IIE ---
Medical History (Last Reviewed 12/04/21 @ 07:15 by DANIELLE Koch) Bleeding ulcer Chronic anticoagulation Chronic gout Chronic kidney disease (CKD) stage G3a/A1, moderately decreased glomerular filtration rate (GFR) between 45-59 mL/min/1.73 square meter and albuminuria creatinine ratio less than 30 mg/g Diabetes type 2, controlled Heart attack Hyperlipidemia Hypertension Left bundle branch block Presence of combination internal cardiac defibrillator (ICD) and pacemaker Right leg weakness 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 Thyroid nodule Physical Therapy Inpatient Evaluation/Re-Eval M1 PT/OT-IP Prior Functional Status Start: 12/04/21 13:50 Freq: NEEDED Status: Active Protocol: Document 12/04/21 09:35 AB (Rec: 12/04/21 14:06 AB [id number]) Medical Review Prior Functional Status Medical History Reviewed Yes Communication able to make needs known Mobility and Gait pt stated that he is modified independent with all mobilities and ambulation without AD indoors but occasionally uses a 4WW; uses 4WW for outdoor mobility; also stated that spouse assists him when he needs assistance Social History Household Members spouse Living Arrangements House Number of Floors (Floors) One Floor Number of Stairs To Enter/Railing? 4 steps R rail ascending Home Environment Standard Height Toilet,Walk in Shower,Built-In Shower Seat Home Equipment Front Wheel Walker,Four Wheel Walker,Hand Held Shower,Grab Bars In Shower M2 PT-IP Current Condition Start: 12/04/21 13:50 Freq: NEEDED Status: Active Protocol: Document 12/04/21 09:35 AB (Rec: 12/04/21 14:06 AB [id number]) Physical Therapy Current Condition Current Condition Evaluation Date 12/04/21 Treatment Diagnosis s/p fall; RLE pain; difficulty in walking Onset Date 12/04/21 M3 PT-IP Subjective Start: 12/04/21 13:50 Freq: NEEDED Status: Active Protocol: Document 12/04/21 09:35 AB (Rec: 12/04/21 14:06 AB [id number]) Subjective Physical Therapy Visit Type Type Initial Evaluation Visit Start Time 09:35 Visit Stop Time 10:30 Total Visit Minutes 55 Number of MARGIN ANALYST Visits 0 Physical Therapy Visit Comments Patient Comments c/o RLE but agreed to do PT Therapy Pain Assessment Pain When Pain Assessed At Rest Pain Present Pain Present Pain Reported Location Right Lateral Thigh Intensity 6 Scale Used Numeric (0 - 10) Pain Management Techniques Apply Cold,Distraction, Modification of Treatment,Re- positioning M4 PT-IP Mobility and Gait Start: 12/04/21 13:50 Freq: NEEDED Status: Active Protocol: Document 12/04/21 09:35 AB (Rec: 12/04/21 14:06 AB [id number]) PT-Bed Mobility Assessment Supine to Sit Supine to Sit Standby Assistance Sit to Supine Sit to Supine Standby Assistance PT-Transfer Assessment Sit to and From Stand Sit to and from Stand Moderate Assistance,1 Person Assistance,Use of Upper Extremities Equipment Transfer Assistive Device Gait Belt,Front Wheeled Walker Orthotic/Prosthetic Devices or Brace: No Comments Mobility Comments pt supine in bed. c/o increase R lateral thigh pain and stated that he cannot move RLE . assessed R lateral thigh: ( +) hematoma, (+) IT band tightness. pt also stated that he has chronic R knee pain and receiving steroid shots every 3 months. conducted MFR on IT band as tolerate by pt. completed supine to sit SBA. able to sit on EOB SBA. completed sit to stand mod A and cues and ambulated in room ~ 25 ft using FWW mod A. presents with antalgic gait. pt requested to go back to bed. completed sit to supine SBA. pt stated that occasionally he needs assistance with LE elevation to bed and spouse assists him. positioned pt in bed. call light and table placed within reach. pt stated that he usually takes tylenol with codeine for pain . informed nurse. Gait Assessment Gait Gait Assistance Required: Moderate Assistance Distance (Feet) 25 Able to Maintain Weight Bearing Status Yes During Gait Assistive Devices Assistive Device Gait Belt,Front Wheeled Walker Orthotic/Prosthetic Devices or Brace: No Gait Deviations General Gait Pattern Antalgic,Decreased Stride Length,Decreased Feet Clearance,Step-to Gait Factors Limiting Gait Function Factors Limiting Gait Function Decreased Activity Tolerance, Decreased Strength,Limited Range of Motion,Pain,Poor Balance,Poor Safety Awareness PT-Balance Assessment Sitting Balance and Reactions Static Sitting Balance Ability Good Dynamic Sitting Balance Ability Good Standing Balance and Reactions Static Standing Balance Ability Fair Dynamic Standing Balance Ability Poor Device Used FWW M5 PT-IP Objective Assessments Start: 12/04/21 13:50 Freq: NEEDED Status: Active Protocol: Document 12/04/21 09:35 AB (Rec: 12/04/21 14:06 AB [id number]) Orientation Orientation/Cognition Level of Alertness Alert Orientation Name,Place,Situation Language Function Ability Hard of Hearing Memory Description Short Term Impaired Gross Range of Motion Lower Extremity ROM Impairments RLE increase tightness and guarding during PROM Strength Lower Extremity Strength Assessment Right Impaired Hip 3+/5 Knee 3+/5 Muscle Tone Muscle Tone WNL Yes M6 PT-IP Treatment Start: 12/04/21 13:50 Freq: NEEDED Status: Active Protocol: Document 12/04/21 09:35 AB (Rec: 12/04/21 14:06 AB [id number]) Physical Therapy Treatment Education Education Provided Safety M7 PT-IP Assessment and Plan Start: 12/04/21 13:50 Freq: NEEDED Status: Active Protocol: Document 12/04/21 09:35 AB (Rec: 12/04/21 14:06 AB [id number]) PT Summary Assessment and Plan Potential Rehabilitation Potential Good Status of Condition at Evaluation Evolving Summary Impairments Pain,ROM,Strength,Balance, Coordination,Sensation,Tone, Cognition,Bed Mobility, Transfers,Gait,Activity Tolerance Assessment Summary pt requiring mod A with mobility with c/o increase R lateral thigh pain affecting mobility. pt stated that his spouse will be able to assist him. will continue to assess progress and when appropriate conduct caregiver training as well as stair climbing training. pt will also need HHPT. Goals Bed Mobility Goal Independent Transfer Goal Independent,Front Wheeled Walker,Four Wheeled Walker Gait Goal Independent,Front Wheel Walker ,Four Wheel Walker Gait Distance 150 Other Goals up/down 4 steps R rail ascending SBA Days to Meet Goals 10 Frequency of Treatment Frequency Of Treatment Once a Day Treatment Plan Physical Therapy Treatment Plan Bed Mobility Training,Transfer Training,Gait Training, Therapeutic Exercise,Balance Retraining,Discharge Planning, Hot or Cold Pack,Neuromuscular Re-ed,Coordination Retraining ,Manual Therapy Precautions Other Precautions falls Recommendations To Nursing Amount of Assist Needed 1 Person Assist Discharge Recommendations PT Discharge Recommendations Home with 24/ Assist Available,Home Health Transportation Needs at Discharge Private Vehicle
--- NOTE | 2021-12-04 13:42 | PM.PN.1 ---
Subjective Subjective Date Patient Seen: 12/04/21 Interval history: BRIEF HPI THIS IS A 86-YEAR-OLD MALE ADMITTED A FALL BRUISES NOTED ON THE RIGHT HIP WITH CT SCAN SHOWING WHAT APPEARS TO BE AN INTRAMUSCULAR HEMATOMA POSSIBLY TODAY PATIENT HAS SOME UNDERLYING DEMENTIA. HOWEVER APPEARS TO BE AT BASELINE REPORTED PAIN TO THE RIGHT HIP. REPORTED THAT HE TRIPPED AND FELL DENIES CHEST PAIN. NO CHEST PRESSURE. HE ALSO DENIES LOSS OF CONSCIOUSNESS. NO NAUSEA OR VOMITING. Exam Vital Signs (past 8 hours): - 12/04/21 06:00 12/04/21 07:00 12/04/21 07:54 Temperature 97.5 F L Pulse Rate 61 Respiratory Rate 16 16 Blood Pressure 160/73 H Pulse Oximetry 95 100 12/04/21 10:39 12/04/21 11:56 Temperature 97.4 F L Pulse Rate 61 Respiratory Rate 16 Blood Pressure 109/68 148/74 H Pulse Oximetry 97 Oxygen Delivery Method Room Air Oxygen Flow Rate 0 Narrative Exam Narrative: NO ACUTE DISTRESS. PATIENT IS ALERT ORIENTED X3. HEAD ATRAUMATIC NORMOCEPHALIC NECK : SUPPLE WITHOUT ADENOPATHY NO CAROTID BRUITS EYE: EOMI, PERRLA, NORMAL CONJUNCTIVA; NO JAUNDICE CHEST: REGULAR RATE. NO RUBS. PMI IS NON DISPLACED. NO MURMURS; NORMAL S1-S2 PULMONARY: DECREASED BS OVER THE BASES. MILD BIBASILAR CRACKLES NOTED; NO INCREASED DULLNESS TO PERCUSSION ABDOMEN: SOFT. NONTENDER. NONDISTENDED. BOWEL SOUNDS ARE PRESENT IN ALL 4 QUADRANTS. EXTREMITIES: 1+ RYLEY LOWER EXT EDEMA.. NO CYANOSIS CLUBBING NOTED. NEURO: CRANIAL NERVES 2-12 GROSSLY INTACT. NO FOCAL NEUROLOGICAL DEFICIT NOTED. 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 MSK: NORMAL RANGE OF MOTION FOR AGE. NO JOINT EFFUSION. SKIN: AGE ASSOCIATED FULL SKIN TURGOR. LARGE BRUISE NOTED TO THE RIGHT. MILDLY TENDER TO TOUCH. NO OPEN LESION. : NORMAL EXTERNAL GENITALIA. PSYCH : APPROPRIATE MOOD AND AFFECT. ALERT AWAKE ORIENTED X3 Objective Labs Result Diagrams: 12/04/21 05:15 12/04/21 05:15 Labs: Laboratory Results - last 24 hr 12/03/21 12/03/21 12/03/21 21:00 21:00 21:00 WBC 9.6 RBC 3.13 L Hgb 10.0 L Hct 30.4 L MCV 97.1 MCH 31.8 MCHC 32.8 RDW 14.3 Plt Count 189 Neut % (Auto) 68.5 Lymph % (Auto) 18.8 L [place] % (Auto) 10.5 Eos % (Auto) 2.0 Baso % (Auto) 0.2 Neut # (Auto) 6600 Lymph # (Auto) 1800 [place] # (Auto) 1000 H Eos # (Auto) 200 Baso # (Auto) 0 PT 26.7 H INR 2.3 H APTT 35 Sodium 139 Potassium 4.9 Chloride 102 Carbon Dioxide 31 BUN 47 H Creatinine 1.74 H Estimated GFR 38 L BUN/Creatinine Ratio 27.0 H Glucose 206 H Hemoglobin A1c Calcium 8.8 Magnesium 1.7 Total Bilirubin 0.5 Conjugated Bilirubin Unconjugated Bilirubin AST 22 ALT 26 Alkaline Phosphatase 73 Total Creatine Kinase CK-MB (CK-2) CK-MB (CK-2) Rel Index Troponin I NT-Pro-B Natriuret Pep 358 Total Protein 6.9 Albumin 4.0 Globulin 2.9 Albumin/Globulin Ratio 1.4 SARS-CoV-2 (PCR) 12/03/21 12/03/21 12/03/21 21:00 21:00 21:05 WBC RBC Hgb Hct MCV MCH MCHC RDW Plt Count Neut % (Auto) Lymph % (Auto) [place] % (Auto) Eos % (Auto) Baso % (Auto) Neut # (Auto) Lymph # (Auto) [place] # (Auto) Eos # (Auto) Baso # (Auto) PT INR APTT Sodium Potassium Chloride Carbon Dioxide BUN Creatinine Estimated GFR BUN/Creatinine Ratio Glucose Hemoglobin A1c 7.2 H Calcium Magnesium Total Bilirubin Conjugated Bilirubin Unconjugated Bilirubin AST ALT Alkaline Phosphatase Total Creatine Kinase 123 CK-MB (CK-2) 1.42 CK-MB (CK-2) Rel Index 1.2 L Troponin I < 0.012 NT-Pro-B Natriuret Pep Total Protein Albumin Globulin Albumin/Globulin Ratio SARS-CoV-2 (PCR) Negative 12/04/21 12/04/21 12/04/21 05:15 05:15 05:15 WBC 8.9 RBC 3.25 L Hgb 10.4 L Hct 31.2 L MCV 96.2 MCH 32.2 MCHC 33.4 RDW 14.0 Plt Count 188 Neut % (Auto) 68.9 Lymph % (Auto) 17.9 L [place] % (Auto) 10.5 Eos % (Auto) 2.4 Baso % (Auto) 0.3 Neut # (Auto) 6200 Lymph # (Auto) 1600 [place] # (Auto) 900 Eos # (Auto) 200 Baso # (Auto) 0 PT 26.4 H INR 2.3 H APTT Sodium 138 Potassium 4.9 Chloride 102 Carbon Dioxide 28 BUN 42 H Creatinine 1.43 H Estimated GFR 48 L BUN/Creatinine Ratio 29.4 H Glucose 200 H Hemoglobin A1c Calcium 8.6 Magnesium Total Bilirubin 0.6 Conjugated Bilirubin 0.0 Unconjugated Bilirubin 0.4 AST 21 ALT 25 Alkaline Phosphatase 79 Total Creatine Kinase CK-MB (CK-2) CK-MB (CK-2) Rel Index Troponin I NT-Pro-B Natriuret Pep Total Protein 6.9 Albumin 4.0 Globulin 2.9 Albumin/Globulin Ratio 1.4 SARS-CoV-2 (PCR) PFS Medical History Bleeding ulcer Chronic anticoagulation Chronic gout Chronic kidney disease (CKD) stage G3a/A1, moderately decreased glomerular filtration rate (GFR) between 45-59 mL/min/1.73 square meter and albuminuria creatinine ratio less than 30 mg/g Diabetes type 2, controlled Heart attack Hyperlipidemia Hypertension Left bundle branch block Presence of combination internal cardiac defibrillator (ICD) and pacemaker Right leg weakness 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 Thyroid nodule Surgical History H/O sinus surgery History of brain surgery History of cholecystectomy S/P CABG x 4 Social History household members: spouse Smoking Status: Never smoker alcohol intake: never Assessment & Plan Assessment & Plan narrative: IMPRESSION FALL. INITIAL ASSESSMENT. LIKELY SECONDARY TO PHYSICAL DECONDITIONING PHYSICAL DEBILITY /DECONDITIONING. EXHIBITED BY GENERALIZED WEAKNESS RIGHT THIGH CONTUSION. SECONDARY TO THE FALL RIGHT THIGH INTRAMUSCULARLY HEMATOMA. DUE TO FALL AND COAGULOPATHY COUMADIN COAGULOPATHY. INR 2.3 ACUTE KIDNEY INJURY. ON POSSIBLE CHRONIC KIDNEY DISEASE STAGE 2. 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 HISTORY OF CABG X 4 TYPE 2 DIABETES PER HISTORY CHRONIC SYSTOLIC HEART FAILURE PER HISTORY. NO SIGN OF DECOMPENSATION PLAN NO SIGNS OF WORSENING OF THE HEMATOMA ON THE RIGHT HIP. HOWEVER WILL REASSESS THE NEXT FEW HOURS TO DETERMINE COURSE OF ACTION PATIENT APPEARS TO BE A FALL RISK AND IS ON COUMADIN FOR UNCLEAR REASON PATIENT IS ALSO ON PLAVIX WILL HOLD COUMADIN FOR NOW RISK ARE HIGHER THAN BENEFITS CONTINUE PLAVIX PREVIOUSLY ORDERED COULD CONSIDER ADDING INSTEAD. IF THIS IS INDICATED. IN THE MEANWHILE PHYSICAL THERAPY AND OCCUPATIONAL THERAPY TO ASSESS PATIENT AND TREAT INDICATED. PATIENT IS ON ROBAXIN WHICH WAS STARTED TODAY CONTINUE GABAPENTIN PER HOME DOSE WILL CONSIDER LOW DOSE OF STEROIDS IF INDICATED CLINICALLY TO HELP WITH PAIN MANAGEMENT. HOSPITAL STAFF TO MAINTAIN STRICT FALL AND ASPIRATION PRECAUTIONS PROVIDE ASSISTANCE ALL ACTIVITIES/ADL PAIN CONTROL WITH IV AND ORAL MEDICATIONS ADDITIONAL MANAGEMENT PER CLINICAL COURSE Time Spent With Patient Critical Care time: I spent a total of [] minutes of critical care time on this patient's care today; this time is exclusive of procedural time. Quality VTE Deep Vein Thrombosis/Pulmonary Embolism Present on Admission: No
--- NOTE | 2021-12-04 13:43 | CM.DANOTE ---
Addendum entered by Negrita Haji R.N. 12/04/21 14:32: Reviewed PT notes, they are recommending HH PT. Patient was able to ambulate about 25 feet with moderate assist. Spouse will be coming in for caregiver training and DCP will plan with meeting with her to discuss HH options. Original Note: DCP: Received case, EMR reviewed and met with patient. Introduced self and role to obtain information regarding patient's baseline activity level prior to his hospitalization. DCP assessment completed based on current information available. Patient is an 86 year old male who admitted early this am to the care of the hospitalist team. PCP: Dr Trinidad Garcia Payer: [employer] Medicare Patient came to the hospital via ambulance secondary to a fall yesterday. Patient has since noted increased right hip and leg pain and has been unable to bear weight on RLE. Pt is a poor historian according to notes. was at bedside upon admission to hospital. According to EMR, no fractures noted but patient states he is unable to ambulate. P.T. will be evaluating today. Met with patient in his room, he is alert and oriented but very [place] and slowed mentation. Confirmed the patient resides in [place] with his spouse [place]. Patient indicated that he has some DME from his mother in law including a 4WW/FWW, wheelchair, lift recliner. At his baseline, he does not drive but does use a walker. Patient states that he fell due to tripped over the shower curtain and his called EMS. Patient's goal is to return home since his 's birthday green party is coming up. P: Will see how patient does with PT. Can consider Home Health if needed. Will continue to evaluate. Negrita Haji RN, Corporate Controller Discharge Planning/Care Management Advanced directive, confirm from CLINIC Start: 12/04/21 03:11 Freq: Q24H Status: Active Protocol: Document 12/04/21 03:11 MW (Rec: 12/04/21 03:12 MW [id number]) Advance Directive, confirm on record Time 03:12 Person contacted pt Copy received No CM Discharge Assessment Start: 12/04/21 13:31 Freq: Status: Active Protocol: Document 12/04/21 13:35 SJ (Rec: 12/04/21 13:41 SJ [id number]) Discharge Planning Assessment Assigned Plastic Printer Negrita Haji RN, Corporate Controller Advance Directives? Yes Advance Directives on File No History Provided By Patient,Family Member,Medical Record Prior Living Arrangements House Household Members spouse Type of transporation used prior to Relies on Others admit Independent with ADL's Yes Is patient alert and oriented? Yes: [place], delayed responses Needs Assistance With Meal Prep,Managing Medications ,Home Chores / Shopping Caregiver for Another No DME Already Rented / Owned Wheelchair,FWW / Walker Comment Pt stated he inherited his mother in law's 4WW, w/c and electric recliner Patient/Family Preference Home with Home Health Barriers to Discharge Yes Comment It is unclear if patient will be able to ambulate in order to go home Discharge Plan Home Transportation Arrangement Family Referrals Initiated Other Additional Comment Will have to see how patient does with P.T. If patient plan is home with home health unknown : Has signed face to face form been completed? Whiteboard Updated in Patient Room with Yes name and ext. # of Plastic Printer Review Status In Process Next Review Type Continued Stay Review
[2021-12-04] MEDS: HYDROCODONE/ACET 5/325 TABLET 1 TAB PO ×2 (14:29→23:49)
--- NOTE | 2021-12-04 15:02 | OT.IP.EVAL ---
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 Thyroid nodule Surgical History (Last Reviewed 12/04/21 @ 07:15 by DANIELLE Koch) H/O sinus surgery History of brain surgery History of cholecystectomy S/P CABG x 4 Occupational Therapy Inpatient Evaluation/Re-Eval M1 PT/OT-IP Prior Functional Status Start: 12/04/21 13:50 Freq: NEEDED Status: Active Protocol: Document 12/04/21 14:23 [facility] (Rec: 12/04/21 15:16 [facility] [id number]) Medical Review Prior Functional Status Medical History Reviewed Yes Communication able to make needs known Mobility and Gait pt stated that he is modified independent with all mobilities and ambulation without AD indoors but occasionally uses a 4WW; uses 4WW for outdoor mobility; also stated that spouse assists him when he needs assistance Activities of Daily Living and IADL's Pt states able to do all his ADL's on his own, but his assist with medications and finances, and IADl needs. Social History Household Members spouse Living Arrangements House Number of Floors (Floors) One Floor Number of Stairs To Enter/Railing? 4 steps R rail ascending Home Environment Standard Height Toilet,Walk in Shower,Built-In Shower Seat Home Equipment Front Wheel Walker,Four Wheel Walker,Hand Held Shower,Grab Bars In Shower M2 OT-IP Current Condition Start: 12/04/21 15:03 Freq: Status: Active Protocol: Document 12/04/21 14:23 [facility] (Rec: 12/04/21 15:16 [facility] [id number]) Occupational Therapy Current Condition Current Condition Evaluation Date 12/04/21 Treatment Diagnosis S/P fall, RLE pain Diagnosis Onset Date 12/04/21 M3 OT- IP Subjective and Pain Start: 12/04/21 15:03 Freq: Status: Active Protocol: Document 12/04/21 14:23 [facility] (Rec: 12/04/21 15:16 [facility] [id number]) OT- Subjective Occupational Therapy Visit Type Type Initial Evaluation Visit Start Time 14: Visit Stop Time 15:02 Total Visit Minutes 39 Occupational Therapy Visit Comments Patient Comments Pt wanting to use the BSC. Patient/Caregiver Goals TO go home. OT Pain Assessment Pain When Pain Assessed During Mobility Pain Present Pain Present Reassessed Location Right Lateral Thigh Intensity 2 Scale Used Numeric (0 - 10) M4 OT- IP ADL's Start: 12/04/21 15:03 Freq: Status: Active Protocol: Document 12/04/21 14:23 [facility] (Rec: 12/04/21 15:16 [facility] [id number]) OT [id number] Comments OT Self-Feeding Comments Not at meal time. OT ADL-Grooming Comments OT Grooming Comments NOt performed. OT ADL-Oral Care Comments Oral Care Comments Not performed. OT ADL-Dressing General Eval Lower Body Dressing Ability Moderate Assistance Comments OT Dressing Comments Assist to silvia right sock up over his heel and to thread brief over his feet. OT ADL-Toileting General Evaluation Toileting Ability Minimal Assistance Areas Needing Assistance Manage Clothing Comments OT Toileting Comments Pt able to wipe after set-up of wet wipes after having a bowel movement. OT ADL-Bathing Comments OT Bathing Comments At this time best for pt to sit for showering needs. Pending on height of built in seat in the shower may need a shower chair. M5 OT- IP IADL's Start: 12/04/21 15:03 Freq: Status: Active Protocol: Document 12/04/21 14:23 [facility] (Rec: 12/04/21 15:16 [facility] [id number]) OT-Instrumental Activities of Daily Living Home Safety Awareness Awareness of Need for Assistance at Home Good Awareness Ability to Problem Solve Emergency Able to Problem Solve Situations Home Safety Comments Pt has a supportive to be able to assist with his needs . Medication Management Medication Management Caregiver Provides Supervision Money Management Money Management Caregiver Provides Assistance Meal Preparation Meal Preparation Caregiver Provides Assist Cathead Operator Cathead Operator Caregiver Provides Assist Driving Driving Comments Pt states his mainly does the driving. M6 OT- IP Functional Cognition Start: 12/04/21 15:03 Freq: Status: Active Protocol: Document 12/04/21 14:23 [facility] (Rec: 12/04/21 15:16 [facility] [id number]) Cognitive Factors Limiting Selfcare Function Cognitive Ability Level of Alertness Alert Patient Orientation Name,Place,Situation Attention Span Ability Capable of Focused Attention, Capable of Sustained Attention Ability to Follow Commands Able to Follow One Step Commands Cognitive Comments Cognitive Assessment Comments Pt able to follow commands for ADL's and mobility needs. Pt likes to joke around a lot, would be beneficial to get a SLUMS assessment on the pt next Ot treatment. OT- Vision and Hearing OT- Hearing Assessment OT- Hearing Assessment Hearing Impaired,Use of Hearing Aids OT- Vision Assessment Visual Acuity Glasses All The Time Vision Assessment Comments Pt states wears prismm glasses due to his left eye turns outwards. M7 OT- IP Mobility and Balance Start: 12/04/21 15:03 Freq: Status: Active Protocol: Document 12/04/21 14:23 [facility] (Rec: 12/04/21 15:16 [facility] [id number]) OT- Bed Mobility Assessment Supine to Sit Supine to Sit Assist Minimal Assistance Scooting Scooting to Edge of Bed Standby Assistance OT-Transfer Assessment Sit to and From Stand Sit to and from Stand Moderate Assistance,Maximum Assistance Transfers Transfer Ability Minimal Assistance Technique Transfer Destination Bed,Bedside Commode,Chair Transfer Technique Stand Step Pivot Devices Transfer Assistive Devices Gait Belt,Front Wheeled Walker Comments Mobility Comments Pending of level of surface sitting ip pt needing from MODA to MAXAx1 to stand to fww and TC with FWW to transfer to the c and then recliner. OT- Balance Assessment Sitting Balance and Reactions Static Sitting Balance Ability Normal Dynamic Sitting Balance Ability Good Standing Balance and Reactions Static Standing Balance Ability Fair M8 OT- IP Objective Assessments Start: 12/04/21 15:03 Freq: Status: Active Protocol: Document 12/04/21 14:23 [facility] (Rec: 12/04/21 15:16 [facility] [id number]) OT Gross Range of Motion Upper Extremity Range of Motion Assessment Within Functional Limits OT Strength Upper Extremity Strength Assessment Within Functional Limits OT- Coordination Assessment Upper Extremity Finger to Nose Test Within Functional Limits OT-Muscle Tone Assessment Muscle Tone WNL Yes M9 OT- IP Assessment and Plan Start: 12/04/21 15:03 Freq: Status: Active Protocol: Document 12/04/21 14:23 [facility] (Rec: 12/04/21 15:16 [facility] [id number]) OT Summary Assessment and Plan Potential Rehabilitation Potential Good Analytic Complexity at Evaluation Low Summary OT Impairments Pain,Balance,Functional Mobility,Dressing,Toileting, Bathing,Toilet Transfers, Shower Transfers Progress Towards Goals Progressing Toward Goals Assessment Summary Pt low complexity and main barriers are steps, decreased dynamic balance, and pain and will need assist for ADL and mobility needs at this time. Therefore pending how much pt' s can assist him may benefit from possible short skilled rehab but most likely home with 24/7 assist and home health. Goals Grooming Goal Independent Dressing Goal Independent Toileting Goal Independent Bathing Goal Independent Toilet Transfer Goal Independent Shower Transfer Goal Independent Patient/Caregiver Education Goal Caregiver Independent Assisting Patient Days to Meet Goals 7 Frequency of Treatment Frequency Of Treatment Once a Day Treatment Plan OT Treatment Plan ADL Training,Functional Cognition Training,Functional Mobility,Patient/Family Education,Discharge Planning Other Treatment Recommendations and Next shower/SLUMS Treatment Focus Discharge Recommendations OT Discharge Recommendations Home with 24/7 Assist Available,Home Health,Home vs SNF Home Equipment Needs shower chair Transportation Needs at Discharge Private Vehicle,Wheelchair/ Cabulance
[2021-12-04] MEDS: methocarbamoL 500 MG TABLET PO ×2 (16:11→21:19)
[2021-12-04] MEDS: TAMSULOSIN 0.4 MG CAPSULE PO (21:19)
[2021-12-04] MEDS: ATORVASTATIN 20 MG TABLET 80 MG PO (21:21)
[2021-12-05] VITALS (11 sets, daily range): BP systolic 114–160; BP diastolic 56–80; PULSE 60–73; RESP 16–18; TEMP 36.3–36.8; O2SAT 97–99
[2021-12-05 05:07] LABS: INR 2.3 (0.9-1.3)
[2021-12-05 05:23] LABS: Alanine Aminotransferase 22 IU/L (<50); Albumin 3.6 g/dL (3.5-5.0); Albumin Globulin Ratio 1.4 (1.0-2.8); Alkaline Phosphatase 71 U/L (38-126); Aspartate Aminotransferase 22 IU/L (17-59); BUN Creatinine Ratio 32.2 (6-22); Bilirubin Total 0.5 mg/dL (0.2-1.3); Blood Urea Nitrogen 38 mg/dL (9-20); Calcium 8.5 mg/dL (8.4-10.2); Carbon Dioxide 30 mmol/L (22-32); Chloride 101 mmol/L (98-107); Estimated Glomerular Filt Rate > 60 mL/min (>60); Globulin 2.6 g/dL (1.7-4.1); Glucose 173 mg/dL (80-110); HEMOLYSIS < 15 (0-50); Magnesium 1.7 mg/dL (1.6-2.3); Phosphorous 3.1 mg/dL (2.3-3.7); Potassium 4.8 mmol/L (3.4-5.1); Sodium 137 mmol/L (137-145); Total Protein 6.2 g/dL (6.3-8.2)
[2021-12-05] MEDS: METOPROLOL ER 50 MG TABLET 100 MG PO ×2 (09:30→21:02)
[2021-12-05] MEDS: allopurinoL 100 MG TABLET PO (09:31)
[2021-12-05] MEDS: CLOPIDOGREL 75 MG TABLET PO (09:31)
[2021-12-05] MEDS: methocarbamoL 500 MG TABLET PO (09:31)
[2021-12-05] MEDS: carBAMazepine 200 MG TABLET PO ×3 (09:32→21:47)
[2021-12-05] MEDS: GABAPENTIN 600 MG TABLET 300 MG PO (09:33)
[2021-12-05] MEDS: PANTOPRAZOLE DR 40 MG TABLET PO (09:33)
[2021-12-05] MEDS: AMLODIPINE 5 MG TABLET PO (09:33)
[2021-12-05] MEDS: INSULIN LISPRO 100 UNIT/ML 3ML VIAL SUBCUT ×3 (09:34→20:58)
[2021-12-05] MEDS: LOSARTAN 50 MG TABLET 100 MG PO (09:34)
[2021-12-05] MEDS: INSULIN GLARGINE 100 UNIT/ML 3ML PEN SUBCUT (09:38)
--- NOTE | 2021-12-05 10:17 | CM.DPC ---
Addendum entered by Socorro Garsia R.N. 12/05/21 12:38: Was able to speak to patient's spouse, [place]. She plans on coming here to see patient at about 1500. Discussed home health. She mentioned that she met someone at a [employer] who works for [employer]. She has had Yuli before with her mother as well. She was surprised that her did not have any fractures, since it was so hard for him to walk after fall. Let her know that he did work with P.T. yesterday, he could possibly go home today, more than likely will need caregiver training, since there are a few stairs to get into the home. Spoke with Cami Clements, updated her as to time that spouse is supposed to be here. She indicated that she has attempted to work with patient today, but has been sleeping. It is currently unclear if he will be ready to discharge today. Spouse is leaning towards wanting [facility]. Have already spoken to Arthur at [facility] about referral. P: DCP to continue to check in. Completed face to face, and orders, will fax [facility] referral. Socorro Garsia RN/Engineering Specialist Technician Original Note: DCP Cont: This DC Risk Assessment Analyst had received a message from patient's via voice mail. Checked with patient, she was not in room, and patient was on the phone. Went ahead and called patient's , [place]. In the message, she stated that she was interested in [facility] for her . This DC Risk Assessment Analyst called her, but it was a generic voice mail. Left name of this DC Risk Assessment Analyst for her to return call. Did discuss patient in team rounds, and P.T. has been working with him, pain is an issue. Hospitalist will look into his pain, possibly can discharge today. Confirmed that patient is observation status. P: Will continue to reach out to patient's , and can set up [facility]. Hospitalist is willing to sign face to face for home health. Socorro Garsia RN/Engineering Specialist Technician
--- NOTE | 2021-12-05 12:34 | PM.DS.1 ---
History of Present Illness History of Present Illness Date Patient Seen: 12/05/21 Chief complaint: leg pain Narrative: History of Present Illness Date Patient Seen: 12/04/21 Time Patient Seen: 03:45 Chief complaint: leg pain Narrative: Winston Houston is an 86-year-old male with a history of coronary artery disease in, chronic kidney disease stage 3, diabetes type 2 poorly controlled, history of ischemic cardiomyopathy with the ejection fraction of approximately 25-35% in early 2020, and improved to 45 to 50% in 2021, and anticoagulated on warfarin, took a fall 2 days ago at home and apparently has been unable to bear weight on his right leg.? He was found to have a hematoma however it all of the imaging studies in the emergency department did not indicate any hip fracture.? He denies chest pain, shortness of breath, loss of consciousness or hitting his head, vision changes, nausea vomiting, or changes in bowel or bladder control. With the exception of pelvis CT which indicated a intramuscular hematoma, head CT, hip x-ray, and chest x-ray were all negative for any pathology.? He is afebrile, blood pressure 146/76, heart rate 60 respiratory rate 16, oxygen saturation of 100% on room air, he weighs 89.1 kg with a BMI of 29.5.? Is mildly anemic with hemoglobin and hematocrit of 10.4 and 31.2 respectively, platelet count is 188, PT INR is 2.3 and 26.4, creatinine is 1.43 with the EGFR of 48, glucose is 200, with an A1c of 7.2, COVID-19 PCR is negative. Discharge Providers Provider Date of admission: 12/04/21 00:57 Discharge Date: 12/05/21 Primary care physician: Trinidad Garcia MD Consults: 12/04/21 07:20 Consult to Physical Therapy Evaluate & Treat Comment: right leg weakness, may refuse Physician Instructions: Evaluate and Treat 12/04/21 14:04 Consult to Occupational Therapy Evaluate & Treat Comment: Physician Instructions: Evaluate and treat 12/04/21 14:05 Consult to Physical Therapy Evaluate & Treat Comment: Physician Instructions: Evaluate and Treat 12/05/21 11:04 Consult to Home Health Routine Comment: Reason For Exam: Home Health RN, PT/OT Discharge provider: Karen Her, Summary Hospital Course Discharge Diagnosis: ?FALL.? INITIAL ASSESSMENT.? LIKELY SECONDARY TO PHYSICAL DECONDITIONING. DISCHARGED WITH HOME HEALTH ?PHYSICAL DEBILITY /DECONDITIONING.? EXHIBITED BY GENERALIZED WEAKNESS. DISCHARGED WITH PT AND OT THROUGH HOME HEALTH ?RIGHT THIGH ? CONTUSION.? SECONDARY TO THE FALL. STABLE ?RIGHT THIGH? INTRAMUSCULARLY HEMATOMA.? DUE TO FALL AND COAGULOPATHY. NO ACUTE INPATIENT TREATMENT INDICATED ?COUMADIN COAGULOPATHY.? INR 2.3. CONTINUE HOME DOSE RIGHT LUNG PE PER HISTORY. CONTINUE COUMADIN PER HOME DOSE ?ACUTE KIDNEY INJURY. ? ON POSSIBLE CHRONIC KIDNEY DISEASE STAGE 2. 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 RESOLVED ?ANEMIA OF CHRONIC DISEASE WITH POSSIBLE MILD ACUTE BLOOD LOSS. STABLE HEMOGLOBIN ?HYPERTENSION PER HISTORY ?RECENT HISTORY OF COVID-19 INFECTION ?CAD PER HISTORY.? HISTORY OF CABG X 4 ?TYPE 2 DIABETES PER HISTORY ? CHRONIC SYSTOLIC HEART FAILURE PER HISTORY.? NO SIGN OF DECOMPENSATION Hospital Course: THIS IS A 86-YEAR-OLD MALE WHO WAS ADMITTED TO THE HOSPITAL AFTER A FALL. PATIENT REPORTED ACCIDENTAL GROUND LEVEL FALL AT HOME NIGHT PRIOR TO BEING BROUGHT TO THE HOSPITAL THERE WAS NO ASSOCIATED SYNCOPE OR LOSS OF CONSCIOUSNESS. NO FRACTURE IDENTIFIED ON IMAGING. PATIENT HAS NO INCREASING PAIN TO THE EXTREMITIES HE HAS BEEN TREATED CONSERVATIVELY AND APPEARS TO BE STABLE AT THIS TIME. HE IS ON WARFARIN WHICH IS LIKELY THE CAUSE OF THE HEMATOMA NOTED ON HIS RIGHT HIP REPORTEDLY PATIENT IS ON COUMADIN DUE TO A RECENT PE ON THE RIGHT LUNG. IN ANY CASE, HEMOGLOBIN IS STABLE. WE WILL CONTINUE WELL FINAL DISPOSITION HOWEVER WILL STRONGLY RECOMMEND PATIENT PROVIDERS TO STOP ANTICOAGULANT THERAPY SOON POSSIBLE DUE TO INCREASED RISK OF FALL AND INJURY. RISK MIGHT BE HIGHER THAN BENEFITS. PATIENT WILL BE DISCHARGED WITH HOME HEALTH FOR PT AND OT. OUTPATIENT PROVIDERS WILL CONSIDER REFERRING PATIENT TO OUT PATIENT PHYSICAL THERAPY AND OCCUPATIONAL THERAPY IF INDICATED WELL. OFF NOTE, PATIENT BUN IS ELEVATED. THIS COULD BE RELATED TO DECREASED ORAL FLUID INTAKE HOWEVER DOES A POSSIBLY OF A GI BLEED WELL. PATIENT GLOBIN HAS BEEN DECREASING FROM THE LAST FEW TIMES HE HAS BEEN IN THE HOSPITAL. COULD BE HAVING SLOW GI BLEED WHICH WILL NEED TO BE INVESTIGATED BY COLONOSCOPY BY GASTROENTEROLOGY WILL DEFER TO OUTPATIENT PROVIDERS TO REFER PATIENT TO APPROPRIATE BOAT ENGINES INSTALLER IF INDICATED CLINICALLY. AGAIN IT MIGHT BE REASONABLE TO SIMPLY STOP THE COUMADIN WELL. IN ANY CASE, AGAIN PATIENT IS MEDICALLY CLEARED AND STABLE FOR DISCHARGE. NO FURTHER INPATIENT TREATMENT IS INDICATED AT THIS TIME. Status at Discharge Cognitive/behavioral status at discharge: oriented Functional status at discharge: uses cane/walker Overall status at discharge: patient is progressing back to baseline Time Spent with Patient Time spent: Greater than 30 minutes Exam Vital Signs (past 8 hours): - 12/05/21 08:00 12/05/21 09:30 12/05/21 09:34 Temperature 98 F Pulse Rate 68 68 68 Respiratory Rate 17 Blood Pressure 160/80 H 160/80 H 160/80 H Pulse Oximetry 98 12/05/21 12:00 Temperature 97.7 F Pulse Rate 73 Respiratory Rate 18 Blood Pressure 145/66 H Pulse Oximetry 99 Oxygen Delivery Method Room Air Oxygen Flow Rate 0 Narrative Exam Narrative: NO ACUTE DISTRESS.? PATIENT IS ALERT ORIENTED X3. HEAD ATRAUMATIC NORMOCEPHALIC NECK : SUPPLE WITHOUT ADENOPATHY NO CAROTID BRUITS EYE:? EOMI, PERRLA, NORMAL CONJUNCTIVA; NO JAUNDICE CHEST:? REGULAR RATE.? ? NO RUBS.? PMI IS NON DISPLACED.? NO MURMURS; NORMAL S1-S2 PULMONARY:? DECREASED BS OVER THE BASES.? MILD BIBASILAR CRACKLES NOTED; NO INCREASED DULLNESS TO PERCUSSION ABDOMEN:? SOFT.? NONTENDER.? NONDISTENDED.? BOWEL SOUNDS ARE PRESENT IN ALL 4 QUADRANTS. EXTREMITIES: 1+ RYLEY LOWER EXT? EDEMA..? NO CYANOSIS CLUBBING NOTED. NEURO:? CRANIAL NERVES 2-12 GROSSLY INTACT. NO FOCAL NEUROLOGICAL DEFICIT NOTED. 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 MSK:? NORMAL RANGE OF MOTION FOR AGE.? NO JOINT EFFUSION. SKIN: ? AGE ASSOCIATED FULL SKIN TURGOR.? LARGE BRUISE NOTED TO THE RIGHT.? MILDLY TENDER TO TOUCH.? NO OPEN LESION. ? :? NORMAL EXTERNAL GENITALIA. PSYCH :? APPROPRIATE MOOD AND AFFECT.? ALERT AWAKE ORIENTED X3 Objective Labs Result Diagrams: 12/04/21 05:15 12/05/21 04:30 Labs: Laboratory Results - last 24 hr 12/05/21 12/05/21 04:30 04:30 PT 26.0 H INR 2.3 H Sodium 137 Potassium 4.8 Chloride 101 Carbon Dioxide 30 BUN 38 H Creatinine 1.18 Estimated GFR > 60 BUN/Creatinine Ratio 32.2 H Glucose 173 H Calcium 8.5 Phosphorus 3.1 Magnesium 1.7 Total Bilirubin 0.5 AST 22 ALT 22 Alkaline Phosphatase 71 Total Protein 6.2 L Albumin 3.6 Globulin 2.6 Albumin/Globulin Ratio 1.4 PFSH Medical History Bleeding ulcer Chronic anticoagulation Chronic gout Chronic kidney disease (CKD) stage G3a/A1, moderately decreased glomerular filtration rate (GFR) between 45-59 mL/min/1.73 square meter and albuminuria creatinine ratio less than 30 mg/g Diabetes type 2, controlled Heart attack Hyperlipidemia Hypertension Left bundle branch block Presence of combination internal cardiac defibrillator (ICD) and pacemaker Right leg weakness 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 Thyroid nodule Surgical History H/O sinus surgery History of brain surgery History of cholecystectomy S/P CABG x 4 Social History household members: spouse Smoking Status: Never smoker alcohol intake: never Discharge Plan Discharge Plan Patient Disposition: Home Health Service Nursing Discharge Comment: F/U WITH PCP 1-2 WEEKS Discharge orders & Medications Prescriptions: Continued acetaminophen-codeine 300-30 mg tablet 1 tab PO Q6H PRN (Reason: Pain (Scale Score 1-3)) 0RF gabapentin 600 mg tablet 300 mg PO TID Qty: 0 0RF metformin 500 mg tablet 500 mg PO BEDTIME 0RF magnesium chloride 400 mg PO DAILY 0RF furosemide 20 mg Tablet 20 mg PO DAILY 0RF losartan 100 mg PO DAILY 0RF carbamazepine [Tegretol] 200 mg Tablet 200 mg PO TID 0RF fluticasone propionate 50 mcg/actuation spray,suspension 50 mcg Intranasal BID 0RF pantoprazole 40 mg tablet,delayed release (DR/EC) 40 mg PO DAILY 0RF tamsulosin 0.4 mg capsule 0.4 mg PO BEDTIME 0RF fluticasone propion-salmeterol [Advair Diskus] 250-50 mcg/dose Blister With Device 1 inh INHALATION BID 0RF atorvastatin 80 mg Tablet 80 mg PO BEDTIME 0RF metoprolol succinate 100 mg Tablet Extended Release 24 Hr 100 mg PO BID 0RF penicillin V potassium 500 mg Tablet 500 mg PO Q6HR 0RF clopidogrel [Plavix] 75 mg Tablet 75 mg PO DAILY 0RF amlodipine 5 mg Tablet 5 mg PO DAILY 0RF allopurinol 100 mg Tablet 100 mg PO DAILY 0RF warfarin 5 mg Tablet 10 mg PO USEASDIRECTD 0RF Rx Instructions: 10 mg Mon-Sat, 15 mg on Sun Follow up/Referrals: Trinidad Garcia MD [Primary Care Provider] - Diet/Activity/Treatments Activity: TOLERATED. FALL PRECAUTIONS Skin/Wound/Dressing Care Report to your healthcare provider any signs of infection, such as:: increased pain Discharge Data Primary Care Provider: Trinidad Garcia Attending Provider: Vanessa Pham VTE Deep Vein Thrombosis/Pulmonary Embolism Present on Admission: No
--- NOTE | 2021-12-05 13:06 | CM.DPC ---
DCP Cont. Patient does have discharge orders for home, PT visit pending before discharge. Went ahead and faxed the referral to [facility], included facesheet, F2F, orders, H&P, DC summary. P: Patient is supposed to discharge home today, we will see how he does PT. Faxed paperwork to [facility]. Negrita Haji RN/Orthopedic Cast Specialist
--- NOTE | 2021-12-05 13:57 | PT-IP ANOTE ---
checked on pt 2x this morning and pt is so sleepy. pt woke up for a few minutes but then unable to stay awake. will f/u.
--- NOTE | 2021-12-05 15:26 | PT.IPTN ---
Physical Therapy Treatment Note M2 PT-IP Current Condition Start: 12/04/21 13:50 Freq: NEEDED Status: Active Protocol: Document 12/04/21 09:35 AB (Rec: 12/04/21 14:06 AB [id number]) Physical Therapy Current Condition Current Condition Evaluation Date 12/04/21 Treatment Diagnosis s/p fall; RLE pain; difficulty in walking Onset Date 12/04/21 M3 PT-IP Subjective Start: 12/04/21 13:50 Freq: NEEDED Status: Active Protocol: Document 12/05/21 15:26 AB (Rec: 12/05/21 17:08 AB [id number]) Subjective Physical Therapy Visit Type Type Treatment Note Visit Start Time 15:26 Visit Stop Time 16:35 Total Visit Minutes 69 Notes child support case officer Kenyatta informed PT this afternoon that pt's spouse will be coming in ~ 3- 330 pm for caregiver training. Number of POKER MANAGER Visits 0 Physical Therapy Visit Comments Patient Comments spouse in room for caregiver training M4 PT-IP Mobility and Gait Start: 12/04/21 13:50 Freq: NEEDED Status: Active Protocol: Document 12/05/21 15:26 AB (Rec: 12/05/21 17:08 AB [id number]) PT-Bed Mobility Assessment Supine to Sit Supine to Sit Standby Assistance Sit to Supine Sit to Supine Standby Assistance PT-Transfer Assessment Sit to and From Stand Sit to and from Stand Minimal Assistance,Moderate Assistance,1 Person Assistance Equipment Transfer Assistive Device Gait Belt,Front Wheeled Walker Orthotic/Prosthetic Devices or Brace: No Transfers Transfer Destination Bed,Chair Transfer Technique ambulated Transfer Ability Level of Assist Contact Guard Assistance,1 Person Assistance,Use of Upper Extremities Comments Mobility Comments pt sitting on chair. spouse in room. educated spouse on use of safety belt and how to assist pt. spouse was able to put safety belt on pt. pt with difficulty with sit to stand. educated on sit<>stand techniques. pt requested to use the toilet. completed sit to stand from the chair mod A and ambulated to the toilet using FWW CGA. NAC assisted pt with hygiene care and brief change. pt ambulated to the sink CGA and completed handwashing CGA for standing balance. pt ambulated to the EOB. completed sit<>supine SBA. spouse assisted pt with sit to stand from the EOB and pt transferred to the chair using FWW CGA. pt completed sit to stand again with spouse assisting and completed. pt ambulated to the hallway using FWW ~ 50 ft CGA. stair climbing training. spouse stated that they have 4 steps R rail to the deck and 1 platform step from the deck to the kitchen. educated on stair climbing. pt completed up/down platform step with spouse assisting min A using FWW. pt then completed up/ down steps holding on to R rail with B hands min A. assisted pt back to his room. ambulated from w/c to chair using FWW CGA. call light and table within reach. Left pt with spouse and nurse in room. Gait Assessment Gait Gait Assistance Required: Contact Guard Assist Distance (Feet) 50 Able to Maintain Weight Bearing Status Yes During Gait Assistive Devices Assistive Device Gait Belt,Front Wheeled Walker Orthotic/Prosthetic Devices or Brace: No Gait Deviations General Gait Pattern Decreased Stride Length, Decreased Feet Clearance, Flexed Trunk,Step-to Gait Factors Limiting Gait Function Factors Limiting Gait Function Decreased Activity Tolerance, Decreased Strength,Limited Range of Motion,Pain,Poor Balance,Poor Safety Awareness Stair Climbing Assessment Evaluation Level of Assist On Stairs Minimal Assistance,1 Person Assistance Devices Stair Climbing Assistive Devices Right Railing Technique/Endurance Stair Climbing Direction Ascend and Descend Stair Climbing Technique Step to Step Number of Steps Climbed 3 Stair Climbing Set # Repetitions (reps) 1 Comments Stair Climbing Comments pls refer to mobility section for details M5 PT-IP Objective Assessments Start: 12/04/21 13:50 Freq: NEEDED Status: Active Protocol: Document 12/04/21 09:35 AB (Rec: 12/04/21 14:06 AB [id number]) Orientation Orientation/Cognition Level of Alertness Alert Orientation Name,Place,Situation Language Function Ability Hard of Hearing Memory Description Short Term Impaired Gross Range of Motion Lower Extremity ROM Impairments RLE increase tightness and guarding during PROM Strength Lower Extremity Strength Assessment Right Impaired Hip 3+/5 Knee 3+/5 Muscle Tone Muscle Tone WNL Yes M6 PT-IP Treatment Start: 12/04/21 13:50 Freq: NEEDED Status: Active Protocol: Document 12/05/21 15:26 AB (Rec: 12/05/21 17:08 AB [id number]) Physical Therapy Treatment Education Education Provided Safety M7 PT-IP Assessment and Plan Start: 12/04/21 13:50 Freq: NEEDED Status: Active Protocol: Document 12/05/21 15:26 AB (Rec: 12/05/21 17:08 AB [id number]) PT Summary Assessment and Plan Potential Rehabilitation Potential Fair Summary Impairments Pain,ROM,Strength,Balance, Coordination,Sensation,Tone, Cognition,Bed Mobility, Transfers,Gait,Activity Tolerance Progress Towards Goals Slow Progress due to Pain,Slow Progress due to Activity Tolerance Assessment Summary Caregiver training conducted and spouse was able to assist pt. Pt will need HHPT. Goals Bed Mobility Goal Independent Transfer Goal Independent,Front Wheeled Walker,Four Wheeled Walker Gait Goal Independent,Front Wheel Walker ,Four Wheel Walker Gait Distance 150 Other Goals up/down 4 steps R rail ascending SBA Days to Meet Goals 10 Frequency of Treatment Frequency Of Treatment Once a Day Treatment Plan Physical Therapy Treatment Plan Bed Mobility Training,Transfer Training,Gait Training, Therapeutic Exercise,Balance Retraining,Discharge Planning, Hot or Cold Pack,Neuromuscular Re-ed,Coordination Retraining ,Manual Therapy Precautions Other Precautions falls Recommendations To Nursing Amount of Assist Needed 1 Person Assist Discharge Recommendations PT Discharge Recommendations Home with 24/ Assist Available,Home Health Transportation Needs at Discharge Private Vehicle
--- NOTE | 2021-12-05 18:26 | PM.PN.1 ---
Subjective Subjective Date Patient Seen: 12/05/21 Interval history: ?BRIEF HPI ?THIS IS A 86-YEAR-OLD? MALE ADMITTED? ? A FALL ?BRUISES NOTED ON THE RIGHT HIP? WITH CT SCAN SHOWING WHAT APPEARS TO BE AN? INTRAMUSCULAR HEMATOMA POSSIBLY PATIENT IS PHYSICALLY DECONDITIONED ATTEMPTED TO DISCHARGE ON 12/05 HOWEVER CONCERN FOR SAFETY PROMPTED HOLDING THE D ?TODAY NO SIGNIFICANT COMPLAINTS PAIN IS SIGNIFICANTLY IMPROVED TO THE LOWER EXTREMITY DENIES DIZZINESS. NO CHEST PAIN.? NO CHEST PRESSURE. Exam Vital Signs (past 8 hours): - 12/05/21 12:00 12/05/21 13:00 Temperature 97.7 F 98 F Pulse Rate 73 69 Respiratory Rate 18 17 Blood Pressure 145/66 H 140/56 L Pulse Oximetry 99 98 Oxygen Delivery Method Room Air Oxygen Flow Rate 0 Narrative Exam Narrative: NO ACUTE DISTRESS.? PATIENT IS ALERT ORIENTED X3. HEAD ATRAUMATIC NORMOCEPHALIC NECK : SUPPLE WITHOUT ADENOPATHY NO CAROTID BRUITS EYE:? EOMI, PERRLA, NORMAL CONJUNCTIVA; NO JAUNDICE CHEST:? REGULAR RATE.? ? NO RUBS.? PMI IS NON DISPLACED.? NO MURMURS; NORMAL S1-S2 PULMONARY:? DECREASED BS OVER THE BASES.? MILD BIBASILAR CRACKLES NOTED;NO WHEEZING ABDOMEN:? SOFT.? NONTENDER.? NONDISTENDED.? NORMAL ACTIVE BOWEL SOUNDS ARE PRESENT IN ALL 4 QUADRANTS. EXTREMITIES: 1+ POWER MULE OPERATOR RYLEY LOWER EXT? EDEMA..? NO CYANOSIS CLUBBING NOTED.SENSATION INTACT NEURO:? CRANIAL NERVES 2-12 GROSSLY INTACT. NO FOCAL NEUROLOGICAL DEFICIT NOTED. 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 MSK:? ADEQUATE RANGE OF MOTION FOR AGE.? NO JOINT EFFUSION. POOR MUSCULATURE SKIN: ? AGE ASSOCIATED POOR SKIN TURGOR.? LARGE BRUISE NOTED TO THE RIGHT.? MILDLY TENDER TO TOUCH.? NO OPEN LESION. ? :? NORMAL EXTERNAL GENITALIA. PSYCH :? APPROPRIATE MOOD AND AFFECT.? ALERT AWAKE ORIENTED X3 Objective Labs Result Diagrams: 12/04/21 05:15 12/05/21 04:30 Labs: Laboratory Results - last 24 hr 12/05/21 12/05/21 04:30 04:30 PT 26.0 H INR 2.3 H Sodium 137 Potassium 4.8 Chloride 101 Carbon Dioxide 30 BUN 38 H Creatinine 1.18 Estimated GFR > 60 BUN/Creatinine Ratio 32.2 H Glucose 173 H Calcium 8.5 Phosphorus 3.1 Magnesium 1.7 Total Bilirubin 0.5 AST 22 ALT 22 Alkaline Phosphatase 71 Total Protein 6.2 L Albumin 3.6 Globulin 2.6 Albumin/Globulin Ratio 1.4 [facility] Medical History Bleeding ulcer Chronic anticoagulation Chronic gout Chronic kidney disease (CKD) stage G3a/A1, moderately decreased glomerular filtration rate (GFR) between 45-59 mL/min/1.73 square meter and albuminuria creatinine ratio less than 30 mg/g Diabetes type 2, controlled Heart attack Hyperlipidemia Hypertension Left bundle branch block Presence of combination internal cardiac defibrillator (ICD) and pacemaker Right leg weakness 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 INITIAL ASSESSMENT.? LIKELY SECONDARY TO PHYSICAL DECONDITIONING ?PHYSICAL DEBILITY /DECONDITIONING.? EXHIBITED BY GENERALIZED WEAKNESS ?RIGHT THIGH ? CONTUSION.? SECONDARY TO THE FALL ?RIGHT THIGH? INTRAMUSCULARLY HEMATOMA.? DUE TO FALL AND COAGULOPATHY ?COUMADIN COAGULOPATHY.? INR 2.3 ?ACUTE KIDNEY INJURY. ? ON POSSIBLE CHRONIC KIDNEY DISEASE STAGE 2. 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 WITH POSSIBLE? ACUTE BLOOD LOSS ?HYPERTENSION PER HISTORY ?RECENT HISTORY OF COVID-19 INFECTION ?CAD PER HISTORY.? HISTORY OF CABG X 4 ?TYPE 2 DIABETES PER HISTORY ? CHRONIC SYSTOLIC HEART FAILURE PER HISTORY.? NO SIGN OF DECOMPENSATION ? PLAN PATIENT NOT SHOW ANY SIGN OF COMPLICATION AT THIS TIME FROM THE FALL ORIGIN OR PLAN WAS FOR DISCHARGING TO HOME TODAY WITH HOME HEALTH HOWEVER NURSING HAS CONCERN DUE TO SIGN OF PERSISTENT PHYSICAL DEBILITY /DECONDITIONING ALSO PATIENT HAS LIMITED HELP AT HOME WITH HIS BEING ERDERLY WELL. WILL HOLD DISCHARGE FOR NOW PATIENT TO BE SEEN BY THE INSTRUCTIONAL SYSTEMS DESIGNER / CASE MANAGEMENT TEAM IN THE MORNING MANAGED REFERRAL TO NURSING FACILITY IF IT GREW BULBAR PATIENT AND FAMILY ADDITIONAL MANAGEMENT PER CLINICAL COURSE 12/04 ? NO SIGNS OF WORSENING? OF THE HEMATOMA ON THE RIGHT HIP. ?HOWEVER WILL REASSESS THE NEXT FEW HOURS TO DETERMINE COURSE OF ACTION ?PATIENT APPEARS TO BE A FALL RISK AND IS ON COUMADIN FOR UNCLEAR REASON ?PATIENT IS ALSO ON PLAVIX ?WILL HOLD COUMADIN FOR NOW RISK ARE HIGHER THAN BENEFITS ?CONTINUE PLAVIX PREVIOUSLY ORDERED ?COULD CONSIDER ADDING ? INSTEAD.? IF THIS IS INDICATED. ? IN THE MEANWHILE PHYSICAL THERAPY AND OCCUPATIONAL THERAPY TO ASSESS PATIENT ?AND TREAT INDICATED. ? PATIENT IS ON ROBAXIN WHICH WAS STARTED TODAY ?CONTINUE GABAPENTIN PER HOME DOSE ?WILL CONSIDER LOW DOSE OF STEROIDS IF INDICATED CLINICALLY TO HELP WITH PAIN MANAGEMENT.? HOSPITAL STAFF TO MAINTAIN STRICT FALL AND ASPIRATION PRECAUTIONS ?PROVIDE ASSISTANCE ALL ACTIVITIES/ADL ?PAIN CONTROL WITH IV AND ORAL MEDICATIONS ?ADDITIONAL MANAGEMENT PER CLINICAL COURSE Time Spent With Patient Critical Care time: I spent a total of [] minutes of critical care time on this patient's care today; this time is exclusive of procedural time. Quality VTE Deep Vein Thrombosis/Pulmonary Embolism Present on Admission: No
--- NOTE | 2021-12-05 18:33 | PC.NURSE ---
Spoke with Pt and about their discharge plan and home situation. Assisted Pt to get dressed. Pt was able to stand but with difficulty. Pt has no help at home other than his of 63 years. They have a garden path and several stairs to traverse to get in the house. Pt has difficulty standing safely with a walker and having difficulty holding his weight. Spoke with Dr. Dawson regarding concern about Pt and 's safety and holding discharge until tomorrow so that Pt and can discuss going to a rehab or Snf for a period of time so Pt can build up some endurance. Spoke with Martha and Namrata RN's regarding concerns as well. Dr. Dawson okayed to delay discharge till tomorrow. Pt and also in agreement. Martha MICHEL will speak to Care Management tomorrow regarding concerns.
[2021-12-05] MEDS: WARFARIN 5 MG TABLET PO (19:50)
[2021-12-05] MEDS: TAMSULOSIN 0.4 MG CAPSULE PO (21:02)
[2021-12-05] MEDS: ATORVASTATIN 20 MG TABLET 80 MG PO (21:02)
--- NOTE | 2021-12-05 22:18 | PC.NURSE ---
Patient is alert and oriented. MOHEGAN with bilateral hearing aids but still has difficulty hearing. Breath sounds with expiratory rhonchi but denies SOB and RA sat is 97%. HRR. Denied nausea. BT present and abdomen is soft. Up to BSC to urinate with 1-2 assist + walker due to weakness. Denies dysuria, frequency or urgency with urination. Denied pain. Wearing bilateral calf SCD's but reportedly has refused KRISTIN stockings. Fall risk score is high and bed alarm is activated.
[2021-12-06] VITALS (9 sets, daily range): BP systolic 128–151; BP diastolic 67–80; PULSE 60–61; RESP 14–21; TEMP 36–36.4; O2SAT 94–100
[2021-12-06 05:05] LABS: INR 1.4 (0.9-1.3); Prothrombin Time 15.6 SECONDS (10.1-12.7)
[2021-12-06 05:21] LABS: Alanine Aminotransferase 26 IU/L (<50); Albumin 3.5 g/dL (3.5-5.0); Albumin Globulin Ratio 1.3 (1.0-2.8); Alkaline Phosphatase 69 U/L (38-126); Aspartate Aminotransferase 26 IU/L (17-59); BUN Creatinine Ratio 31.1 (6-22); Bilirubin Total 0.4 mg/dL (0.2-1.3); Blood Urea Nitrogen 38 mg/dL (9-20); Calcium 8.5 mg/dL (8.4-10.2); Carbon Dioxide 27 mmol/L (22-32); Chloride 103 mmol/L (98-107); Estimated Glomerular Filt Rate 58 mL/min (>60); Globulin 2.7 g/dL (1.7-4.1); Glucose 184 mg/dL (80-110); HEMOLYSIS < 15 (0-50); Magnesium 1.7 mg/dL (1.6-2.3); Phosphorous 3.1 mg/dL (2.3-3.7); Potassium 4.4 mmol/L (3.4-5.1); Sodium 137 mmol/L (137-145); Total Protein 6.2 g/dL (6.3-8.2)
[2021-12-06] MEDS: METOPROLOL ER 50 MG TABLET 100 MG PO (08:25)
[2021-12-06] MEDS: LOSARTAN 50 MG TABLET 100 MG PO (08:27)
[2021-12-06] MEDS: AMLODIPINE 5 MG TABLET PO (08:27)
[2021-12-06] MEDS: allopurinoL 100 MG TABLET PO (08:27)
[2021-12-06] MEDS: CLOPIDOGREL 75 MG TABLET PO (08:27)
[2021-12-06] MEDS: carBAMazepine 200 MG TABLET PO (08:27)
[2021-12-06] MEDS: GABAPENTIN 100 MG CAPSULE PO (08:27)
[2021-12-06] MEDS: INSULIN GLARGINE 100 UNIT/ML 3ML PEN SUBCUT (08:55)
[2021-12-06] MEDS: INSULIN LISPRO 100 UNIT/ML 3ML VIAL SUBCUT ×2 (08:56→12:58)
[2021-12-06] MEDS: PANTOPRAZOLE DR 40 MG TABLET PO (08:59)
--- NOTE | 2021-12-06 11:00 | OT.IP.TRT ---
Occupational Therapy Treatment Note M2 OT-IP Current Condition Start: 12/04/21 15:03 Freq: Status: Active Protocol: Document 12/04/21 14:23 [facility] (Rec: 12/04/21 15:16 [facility] [id number]) Occupational Therapy Current Condition Current Condition Evaluation Date 12/04/21 Treatment Diagnosis S/P fall, RLE pain Diagnosis Onset Date 12/04/21 M3 OT- IP Subjective and Pain Start: 12/04/21 15:03 Freq: Status: Active Protocol: Document 12/06/21 11:33 [facility] (Rec: 12/06/21 11:55 [facility] [id number]) OT- Subjective Occupational Therapy Visit Type Type Treatment Note Visit Start Time 10:30 Visit Stop Time 11:02 Total Visit Minutes 32 Occupational Therapy Visit Comments Patient Comments Pt not wanting to shower but requesting to get to the bathroom. Patient/Caregiver Goals TO go home. OT Pain Assessment Pain When Pain Assessed At Rest Pain Present Pain Present Denied Pain M4 OT- IP ADL's Start: 12/04/21 15:03 Freq: Status: Active Protocol: Document 12/06/21 11:33 [facility] (Rec: 12/06/21 11:55 [facility] [id number]) OT [id number] Comments OT Self-Feeding Comments NOt at meal time. OT ADL-Grooming Comments OT Grooming Comments Pt refused to perform at this time. OT ADL-Oral Care Comments Oral Care Comments Pt refused to do at this time as he states has very sensitive teeth and going to have implants placed in the near future. OT ADL-Dressing General Eval Lower Body Dressing Ability Moderate Assistance Comments OT Dressing Comments Assist to silvia brief over his right foot and pants over his feet. OT ADL-Toileting General Evaluation Toileting Ability Minimal Assistance Areas Needing Assistance Manage Clothing Comments OT Toileting Comments Pt needing cues to wipe for completeness. OT ADL-Bathing Comments OT Bathing Comments Pt not wanting to shower at this time. Pt would greatly benefit from a shower chair at home for safety. M5 OT- IP IADL's Start: 12/04/21 15:03 Freq: Status: Active Protocol: Document 12/04/21 14:23 [facility] (Rec: 12/04/21 15:16 [facility] [id number]) OT-Instrumental Activities of Daily Living Home Safety Awareness Awareness of Need for Assistance at Home Good Awareness Ability to Problem Solve Emergency Able to Problem Solve Situations Home Safety Comments Pt has a supportive to be able to assist with his needs . Medication Management Medication Management Caregiver Provides Supervision Money Management Money Management Caregiver Provides Assistance Meal Preparation Meal Preparation Caregiver Provides Assist Store Clerk Store Clerk Caregiver Provides Assist Driving Driving Comments Pt states his mainly does the driving. M6 OT- IP Functional Cognition Start: 12/04/21 15:03 Freq: Status: Active Protocol: Document 12/06/21 11:33 [facility] (Rec: 12/06/21 11:55 [facility] [id number]) Cognitive Factors Limiting Selfcare Function Cognitive Ability Level of Alertness Alert Patient Orientation Name,Place,Situation Attention Span Ability Capable of Focused Attention, Capable of Sustained Attention Ability to Follow Commands Able to Follow One Step Commands Memory Description Short Term Impaired Safety Awareness Underestimates Need for Assistance Problem Solving Ability Unable to Identify Errors, Needs Assist to Identify Solutions Cognitive Tests SLUMS Pt scored 19/30 on the SLUMS which implies dementia, however pt is very hard of hearing which may also influence his scores. Pt not able to subtract 100-23 even when written out, able to states 10 animal in one minute , able to recall 2/5 objects after time passed, not able to states a 4 digit number backwards, and able to answer 2 questions write after a paragraph read. Cognitive Comments Cognitive Assessment Comments Pt has difficulty with his short term memory, safety with FWW and completeness for hygiene needs. Pt would benefit form 06/02 available assist at home. Pt able to answer all home safety questions accurately. Pt states does all the maintenance on his home and vehicle and states actually changes his oil 2 weeks ago. However this morning pt was confused about his blood sugars when talking to the nurse. Questionable if pt is still doing maintenance needs at home due to his short term memory and problem solving deficits . M7 OT- IP Mobility and Balance Start: 12/04/21 15:03 Freq: Status: Active Protocol: Document 12/06/21 11:33 [facility] (Rec: 12/06/21 11:55 [facility] [id number]) OT-Transfer Assessment Sit to and From Stand Sit to and from Stand Standby Assistance,Contact Guard Assistance Transfers Transfer Ability Standby Assistance,Contact Guard Assistance Technique Transfer Destination Chair,Toilet Transfer Technique Stand Step Pivot Devices Transfer Assistive Devices Gait Belt,Front Wheeled Walker Comments Mobility Comments Pt doing better to come to stand today and just needing CGA at times. Pt gets a little unsteady the longer his is on his feet and needing cues to keep the FWW close and CGA for safety. OT- Balance Assessment Sitting Balance and Reactions Static Sitting Balance Ability Normal Dynamic Sitting Balance Ability Normal Standing Balance and Reactions Static Standing Balance Ability Good Dynamic Standing Balance Ability Fair M8 OT- IP Objective Assessments Start: 12/04/21 15:03 Freq: Status: Active Protocol: Document 12/04/21 14:23 [facility] (Rec: 12/04/21 15:16 [facility] [id number]) OT Gross Range of Motion Upper Extremity Range of Motion Assessment Within Functional Limits OT Strength Upper Extremity Strength Assessment Within Functional Limits OT- Coordination Assessment Upper Extremity Finger to Nose Test Within Functional Limits OT-Muscle Tone Assessment Muscle Tone WNL Yes M9 OT- IP Assessment and Plan Start: 12/04/21 15:03 Freq: Status: Active Protocol: Document 12/06/21 11:33 [facility] (Rec: 12/06/21 11:55 [facility] [id number]) OT Summary Assessment and Plan Potential Rehabilitation Potential Good Analytic Complexity at Evaluation Low Summary OT Impairments Pain,Balance,Functional Mobility,Dressing,Toileting, Bathing,Toilet Transfers, Shower Transfers Progress Towards Goals Progressing Toward Goals Assessment Summary Pt scored 19/30 on the SLUMS which implies dementia however may be affected by the pt is very hard of hearing. Pt mostly having trouble with his short term memory and needing cues for FWW safety and completeness for hygiene needs . Pt also needing assist for LB dressing needs to be able to get clothing over his feet, pt states uses a chef's assistant at home or his assists him. Pt to go home with his to assist 24/7 when medically stable and would also benefit form home health. Goals Grooming Goal Independent Dressing Goal Independent Toileting Goal Standby Assistance Bathing Goal Standby Assistance Toilet Transfer Goal Independent Shower Transfer Goal Independent Patient/Caregiver Education Goal Caregiver Independent Assisting Patient Days to Meet Goals 5 Frequency of Treatment Frequency Of Treatment Once a Day Treatment Plan OT Treatment Plan ADL Training,Functional Cognition Training,Functional Mobility,Patient/Family Education,Discharge Planning Discharge Recommendations OT Discharge Recommendations Home with 24/7 Assist Available,Home Health Home Equipment Needs shower chair Transportation Needs at Discharge Private Vehicle
--- NOTE | 2021-12-06 11:59 | PT.IPTN ---
Physical Therapy Treatment Note M2 PT-IP Current Condition Start: 12/04/21 13:50 Freq: NEEDED Status: Active Protocol: Document 12/06/21 11:43 SP (Rec: 12/06/21 13:00 SP [id number]) Physical Therapy Current Condition Current Condition Evaluation Date 12/04/21 Treatment Diagnosis s/p fall; RLE pain; difficulty in walking Onset Date 12/04/21 M3 PT-IP Subjective Start: 12/04/21 13:50 Freq: NEEDED Status: Active Protocol: Document 12/06/21 11:43 SP (Rec: 12/06/21 13:00 SP [id number]) Subjective Physical Therapy Visit Type Type Treatment Note Visit Start Time 11:43 Visit Stop Time 11:59 Total Visit Minutes 16 Notes SENIOR ART DIRECTOR initally saw pt [id number] with only vital assessment before being called out of room for other urgent needs. Vitals taken supine: 155/ 80 HR 63 SaO2 98%. Nurse in room giving meds when initially arrived. not in room when arrived for tx. Number of SENIOR ART DIRECTOR Visits 1 Physical Therapy Visit Comments Patient Comments Pt agreeable to working with therapy when initially arrived , agreeable to SENIOR ART DIRECTOR returning when able in am. Patient Goals Go home with to assist him. Therapy Pain Assessment Pain Present Pain Present Denied Pain M4 PT-IP Mobility and Gait Start: 12/04/21 13:50 Freq: NEEDED Status: Active Protocol: Document 12/06/21 11:43 SP (Rec: 12/06/21 13:00 SP [id number]) PT-Bed Mobility Assessment Supine to Sit Supine to Sit Minimal Assistance,Moderate Assistance,1 Person Assistance ,Head of Bed Elevated,Bedrails Sit to Supine Sit to Supine Standby Assistance Scooting Scooting to Edge of Bed Standby Assistance PT-Transfer Assessment Sit to and From Stand Sit to and from Stand Contact Guard Assistance, Minimal Assistance,1 Person Assistance,Use of Upper Extremities Equipment Transfer Assistive Device Gait Belt,Front Wheeled Walker Orthotic/Prosthetic Devices or Brace: No Transfers Transfer Destination Bed,Chair Transfer Technique pt ambulated using FWW Transfer Ability Level of Assist Standby Assistance,Contact Guard Assistance Comments Mobility Comments Pt took time to scoot to EOchair using BUE CGA. Sit> stand CGA- Min A. Further distance gait into hallway approx 160 ft w/ FWW CGA, occasional cues for body closer to FWW, slower pacing and step over step gait due to noted RLE decreased stride and foot clearance. Pt returned to R side bed completed stand>sit>supine SBA . Supine R SL> sit Min- Mod A for trunk righting, scoot to EOB CGA. SENIOR ART DIRECTOR discussed encourage getting bed rails for self support, provided DME handout for numbers can call for assist. Sit EOB, SPT to chair w/ fWW CGA, cued FWW back fully and importance of use of HP for safety, CGA descend to sit in chair. Pt had call light and all needs in reach with chair alarmed before left. SENIOR ART DIRECTOR recommending 24/7 assist due to cues required and decreased foot clearance fall risk, HHPT to progress strength and functional mobility toward PLOF using 4WW but not safe at this time. Pt is ok to return home when medically cleared with , was able to provide all physical assist requried last tx and less assist required today. Gait Assessment Gait Gait Assistance Required: Contact Guard Assist Distance (Feet) 160 Able to Maintain Weight Bearing Status Yes During Gait Assistive Devices Assistive Device Gait Belt,Front Wheeled Walker Orthotic/Prosthetic Devices or Brace: No Gait Deviations General Gait Pattern Decreased Stride Length, Decreased Feet Clearance, Flexed Trunk,Step-to Gait Factors Limiting Gait Function Factors Limiting Gait Function Decreased Activity Tolerance, Decreased Strength,Limited Range of Motion,Poor Balance, Poor Safety Awareness Comments Gait Comments see mobility for details. PT-Balance Assessment Sitting Balance and Reactions Static Sitting Balance Ability Normal Dynamic Sitting Balance Ability Good Standing Balance and Reactions Static Standing Balance Ability Good Dynamic Standing Balance Ability Fair Device Used FWW M5 PT-IP Objective Assessments Start: 12/04/21 13:50 Freq: NEEDED Status: Active Protocol: Document 12/04/21 09:35 AB (Rec: 12/04/21 14:06 AB [id number]) Orientation Orientation/Cognition Level of Alertness Alert Orientation Name,Place,Situation Language Function Ability Hard of Hearing Memory Description Short Term Impaired Gross Range of Motion Lower Extremity ROM Impairments RLE increase tightness and guarding during PROM Strength Lower Extremity Strength Assessment Right Impaired Hip 3+/5 Knee 3+/5 Muscle Tone Muscle Tone WNL Yes M6 PT-IP Treatment Start: 12/04/21 13:50 Freq: NEEDED Status: Active Protocol: Document 12/06/21 11:43 SP (Rec: 12/06/21 13:00 SP [id number]) Physical Therapy Treatment Education Education Provided Safety M7 PT-IP Assessment and Plan Start: 12/04/21 13:50 Freq: NEEDED Status: Active Protocol: Document 12/06/21 11:43 SP (Rec: 12/06/21 13:00 SP [id number]) PT Summary Assessment and Plan Potential Rehabilitation Potential Fair Status of Condition at Evaluation Evolving Summary Impairments Pain,ROM,Strength,Balance, Coordination,Sensation,Tone, Cognition,Bed Mobility, Transfers,Gait,Activity Tolerance Progress Towards Goals Progressing Toward Goals,Slow Progress due to Activity Tolerance Assessment Summary Pt requiring Min- Mod A for trunk righting supine>sit, sBA - CGA for all other mobility with fWW. Pt is ok to return home with when medically cleared, recommending 24/7 due to decreased RLE foot clearance/ stride and cues for body closer and slower pacing with FWW for safety that can assist demonstrated last tx. REcommending HHPT for increase strength and functional mobility. Goals Bed Mobility Goal Independent Transfer Goal Independent,Front Wheeled Walker,Four Wheeled Walker Gait Goal Independent,Front Wheel Walker ,Four Wheel Walker Gait Distance 150 Other Goals up/down 4 steps R rail ascending SBA Days to Meet Goals 10 Frequency of Treatment Frequency Of Treatment Once a Day Treatment Plan Physical Therapy Treatment Plan Bed Mobility Training,Transfer Training,Gait Training, Therapeutic Exercise,Balance Retraining,Discharge Planning, Hot or Cold Pack,Neuromuscular Re-ed,Coordination Retraining ,Manual Therapy Other Recommendations and Next Treatment bed mob, LE ex, balance Focus activities, gait assessment w/ 4WW. Precautions Other Precautions falls Recommendations To Nursing Amount of Assist Needed 1 Person Assist Discharge Recommendations PT Discharge Recommendations Home with 24/7 Assist Available,Home Health Other Discharge Recommendations BSC, bed rails for safety and self support. Provided DME HO for assist calling businesses to acquire further needs. Transportation Needs at Discharge Private Vehicle
--- NOTE | 2021-12-06 13:13 | CM.DPNOTE ---
Addendum entered by Leena Lara 12/06/21 14:30: Received notification from provider that patient is medically stable to d/c home today with home health through [facility]. Placed call to [facility] notifying them of patient's discharge today. In addition, met with patient and placed call to spouse via telephone. Spouse concerned about taking patient home because of his mobility. Patient evaluated by both PT and OT and both report patient cleared to d/c home with home health. Caregiver training offered to spouse if needed. RN updated and no additional needs identified. P: Home today with [facility]. DAHLIA Original Note: Faxed referral to [facility] and received fax conf. Also called Arthur to let him know referral was sent. Moira Terrell CM Assist.
--- NOTE | 2021-12-06 13:29 | OT.IPNOTE ---
Able to touch base with pt's and she is worried about getting pt up from lower surfaces as she has sciatica. Pt's states they have the lift chair at home that he sits in. Today however pt needing minimal assist to come to stand. Pt's is aware of his cognitive deficits and verified pt did not change the car oil 2 weeks ago, as pt insisting that he did. Pt to go home with his 06/02 available assist and home health. No charge.
--- NOTE | 2021-12-06 13:52 | PC.NURSE ---
Pt is dressed and ready for discharge home with Spouse. NO IV or Tele. Went over d/c instructions with Pt and Spouse-discussed d/c meds, time of last dose, reviewed stroke and CHF guidelines, reminded them to follow fall precautions and gave Spouse gait belt to assist with transfer support. Pt and Spouse denied further questions and Pt was taken out via w/c by GASTROENTEROLOGY TEACHER to POV with Spouse and all belongings.
== END 2021-12-06 13:55 | disposition home health service (06) ==
LOC: ED 21:33 → AC 12-04 00:58
PROVIDERS: Hospitalist; Admitting Provider Nurse Practitioner Family; Emergency Provider Emergency Medicine; PCP Internal Medicine; Referring Provider Emergency Medicine; Visit Provider Nurse Practitioner Family
DX: S70.01XA Contusion of right hip, initial encounter (principal); M25.551 Pain in right hip; R53.1 Weakness; W18.30XA Fall on same level, unspecified, initial encounter; I25.10 Atherosclerotic heart disease of native coronary artery without angina pectoris; I50.22 Chronic systolic (congestive) heart failure; I13.0 Hypertensive heart and chronic kidney disease with heart failure and stage 1 through stage 4 chronic kidney disease, or unspecified chronic kidney disease; E11.22 Type 2 diabetes mellitus with diabetic chronic kidney disease; N18.31 Chronic kidney disease, stage 3a; N40.0 Benign prostatic hyperplasia without lower urinary tract symptoms; M10.9 Gout, unspecified; Z95.0 Presence of cardiac pacemaker; Z79.01 Long term (current) use of anticoagulants; Z79.84 Long term (current) use of oral hypoglycemic drugs; Z20.822 Contact with and (suspected) exposure to COVID-19
CPT/HCPCS: 36415; 70450; 71045; 72192; 73502; 80048; 80053; 80076; 82550; 82553; 82962; 83036; 83735; 83880; 84100; 84484; 85025; 85610; 85730; 87635; 94760; 96372; 97129; 97140; 97162; 97165; 97530; 97535; 99284; C9803; G0378; J1815

== ENCOUNTER → 2021-12-09 13:51 | Outpatient (CLI) | payer OTHER, SELFPAY ==
[2021-12-04 01:36] VITALS: BMI 29.5
--- NOTE | 2021-12-09 | DI.RAD.S_ITS ---
PROCEDURE: XR CHEST 2V INDICATIONS: Other abnormalities of breathing TECHNIQUE: 2 views of the chest were acquired. COMPARISON: [facility], , XR CHEST 1V, 12/03/2021, 20:36. FINDINGS: Surgical changes and devices: Midline sternotomy, pacemaker Lungs and pleura: Lungs are clear. No pleural effusions or pneumothorax. Mediastinum: Mediastinal contours are normal. Heart size is normal. Bones and chest wall: No suspicious bony abnormalities. Soft tissues appear unremarkable. IMPRESSION: No evidence acute pulmonary process. Dictated by: Tom Kamara M.D. on 12/09/2021 at 15:24 Approved by: Tom Kamara M.D. on 12/09/2021 at 15:25
== END ==
PROVIDERS: PCP Internal Medicine; Referring Provider Internal Medicine; Visit Provider Internal Medicine
DX: R06.89 Other abnormalities of breathing (principal)
CPT/HCPCS: 71046

== ENCOUNTER → 2022-01-11 14:30 | Outpatient (CLI) | payer OTHER, SELFPAY ==
[2021-12-04 01:36] VITALS: BMI 29.5
--- NOTE | 2022-01-11 | DI.US.S_ITS ---
PROCEDURE: US PERIPH VENOUS LOW EXTREM RT INDICATIONS: PAIN IN RIGHT LEG TECHNIQUE: Real-time imaging, as well as color and pulse Doppler interrogation, were performed of the lower extremity deep veins from the inguinal ligament to the popliteal fossa. COMPARISON: None. FINDINGS: Acute appearing superimposed upon chronic appearing thrombus is identified within the right superficial femoral vein, right popliteal vein as well as the proximal mid segments of the lower right posterior tibial veins. IMPRESSION: Abnormal study demonstrating right lower extremity deep vein thrombosis. Dictated by: Hope Vasquez MD, PhD on 01/11/2022 at 15:53 Approved by: Hope Vasquez MD, PhD on 01/11/2022 at 15:54
== END ==
PROVIDERS: PCP Internal Medicine; Referring Provider Internal Medicine; Visit Provider Internal Medicine
DX: I82.411 Acute embolism and thrombosis of right femoral vein (principal); I82.431 Acute embolism and thrombosis of right popliteal vein; I82.441 Acute embolism and thrombosis of right tibial vein
CPT/HCPCS: 93971

== ENCOUNTER 2022-01-11 16:06 | Emergency (ER) | payer OTHER, SELFPAY ==
[2021-12-04 01:36] VITALS: BMI 29.5
[2022-01-11 16:20] VITALS: BP 174/77; PULSE 60; RESP 17; TEMP 35.9; O2SAT 99; BMI 26.7
--- NOTE | 2022-01-11 16:40 | ED_ITS ---
HPI - Extremity Problem <Madhu Heard PA-C - Last Filed: 01/11/22 17:55> General Chief complaint: Extremity Problem,Nontraumatic Stated complaint: blod clots in Rt leg Time Seen by Provider: 01/11/22 16:25 Source: patient and family Mode of arrival: Wheelchair History of Present Illness HPI Narrative: Patient is an 86-year-old male who presents to the ED after having a ultrasound done. Patient was told to come to the emergency room to be evaluated. Patient reports that approximately 5 weeks ago he fell in the bathroom and had a severe bruise and pain in his right hip. Over the course of the 5 week. His hip did improve however he started having pain in his right leg. The spouse reports that they were seen by a plush weaver and during the evaluation of the plush weaver there was swelling in the right foot and they were advised that they should consider having an ultrasound to rule out a DVT. Patient saw Dr. Wesley an order was made and patient presents to the ED for plan and treatment. Patient has no complaints of shortness of breath chest pain nausea vomiting or diarrhea. No reported fever or cough or congestion. Related Data Home Medications Medication Instructions Recorded Confirmed fluticasone propionate 50 50 mcg intranasal BID 05/06/18 12/04/21 mcg/actuation nasal spray,suspension pantoprazole 40 mg tablet,delayed 40 mg PO DAILY 05/06/18 12/04/21 release tamsulosin 0.4 mg capsule 0.4 mg PO BEDTIME 05/06/18 12/04/21 acetaminophen 300 mg-codeine 30 mg 1 tab PO Q6H PRN Pain (Scale Score 03/31/20 12/04/21 tablet 1-3) metformin 500 mg tablet 500 mg PO BEDTIME 05/08/21 12/04/21 carbamazepine 200 mg tablet 200 mg PO TID 09/07/21 12/04/21 (Tegretol) furosemide 20 mg tablet 20 mg PO DAILY 09/07/21 12/04/21 losartan 100 mg PO DAILY 09/07/21 12/04/21 magnesium chloride 400 mg PO DAILY 09/07/21 12/04/21 allopurinol 100 mg tablet 100 mg PO DAILY 12/04/21 12/04/21 amlodipine 5 mg tablet 5 mg PO DAILY 12/04/21 12/04/21 atorvastatin 80 mg tablet 80 mg PO BEDTIME 12/04/21 12/04/21 clopidogrel 75 mg tablet (Plavix) 75 mg PO DAILY 12/04/21 12/04/21 fluticasone 250 mcg-salmeterol 50 1 inh inhalation BID 12/04/21 12/04/21 mcg/dose blistr powdr for inhalation (Advair Diskus) metoprolol succinate 100 mg 100 mg PO BID 12/04/21 12/04/21 tablet,extended release 24 hr penicillin V potassium 500 mg 500 mg PO Q6HR 12/04/21 12/04/21 tablet warfarin 5 mg tablet 10 mg PO USEASDIRECTD 12/04/21 12/04/21 Previous Rx's Medication Instructions Recorded gabapentin 100 mg capsule 100 mg PO TID #90 caps 12/05/21 Allergies Allergy/AdvReac Type Severity Reaction Status Date / Time tolmetin Allergy Severe Anaphylaxis Verified 12/03/21 20:35 Review of Systems <Madhu Heard PA-C - Last Filed: 01/11/22 17:55> Review of Systems ROS Unobtainable: All systems reviewed & are unremarkable except as noted in HPI and below Constitutional Constitutional: Denies chills, Denies fatigue, Denies fever(s), Denies frequent falls, Denies lethargy and Denies weakness Eyes Eyes: Denies change in vision, Denies eye discharge, Denies irritation and Denies loss of vision ENT Ears, Nose, Mouth, and Throat: Denies change in voice, Denies dizziness, Denies neck pain, Denies sore throat and Denies throat swelling Cardiovascular Cardiovascular: Denies chest pain, Denies irregular heart rhythm, Denies lighthe adedness, Denies palpitations, Denies dyspnea, Denies dyspnea on exertion and Denies orthopnea Respiratory Respiratory: Denies cough, Denies dyspnea, Denies dyspnea on exertion and Denies wheezing Gastrointestinal Gastrointestinal: Denies abdominal pain, Denies change in bowel habits, Denies diarrhea, Denies nausea and Denies vomiting Genitourinary Genitourinary: Denies hematuria, Denies flank pain, Denies urinary incontinence and Denies urinary urgency Musculoskeletal Musculoskeletal: Denies back pain, Reports muscle cramps, Denies muscle weakness, Denies neck pain, Denies numbness and Denies tingling Integumentary/Breasts Skin/Breast: Denies pruritus, Denies erythema, Denies rash and Denies wounds Neurologic Neurologic: Denies behavioral changes, Denies confusion, Denies dizziness, Denies frequent falls, Denies loss of vision, Denies numbness, Denies tingling and Denies weakness Psychiatric Psychiatric: Denies anxiety, Denies behavioral changes, Denies confusion, Denies depression, Denies homicidal ideation and Denies suicidal ideation Endocrine Endocrine: Denies fatigue, Denies flushing and Denies palpitations Hematologic/Lymphatic Hematologic/Lymphatic: Denies easy bruising Allergic/Immunologic Allergic/Immunologic: Denies urticaria, Denies throat swelling and Denies wheezing Patient History <Madhu Heard PA-C - Last Filed: 01/11/22 17:55> Medical History Bleeding ulcer Chronic anticoagulation Chronic gout Chronic kidney disease (CKD) stage G3a/A1, moderately decreased glomerular filtration rate (GFR) between 45-59 mL/min/1.73 square meter and albuminuria creatinine ratio less than 30 mg/g Diabetes type 2, controlled Heart attack Hyperlipidemia Hypertension Left bundle branch block Presence of combination internal cardiac defibrillator (ICD) and pacemaker Right leg weakness 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 Thyroid nodule Surgical History H/O sinus surgery History of brain surgery History of cholecystectomy S/P CABG x 4 Social History household members: spouse Smoking Status: Never smoker alcohol intake: never Smoking Status: Never smoker alcohol intake frequency: 0-2 drinks per day Substance Use Type: does not use Exam <Madhu Heard PA-C - Last Filed: 01/11/22 17:55> Initial Vital Signs Initial Vital Signs: Vital Signs Temperature 96.7 F L 01/11/22 16:20 Pulse Rate 60 01/11/22 16:20 Respiratory Rate 17 01/11/22 16:20 Blood Pressure 174/77 H 01/11/22 16:20 Pulse Oximetry 99 01/11/22 16:20 Oxygen Delivery Method 01/11/22 16:20 Const General: cooperative, healthy appearing, comfortable and well developed Nutritional Appearance: average body habitus and well nourished Orientation: Orientation [facility] Head: normal to inspection, normocephalic and atraumatic Ears: hearing grossly normal bilaterally and external ears normal Nose: external nose normal Face and sinus: normal facial exam and sinuses nontender Mouth: oral mucosae normal Teeth and gingiva: dentition normal and gingiva normal Throat: posterior oropharynx normal Chest Chest: normal inspection of the chest Resp Effort & Inspection: normal respiratory effort and able to speak in complete sentences Auscultation: clear to auscultation bilaterally Extrem Right lower extremity: normal to inspection, full ROM, normal capillary refill, edema Details: 1+ and lower leg Left lower extremity: normal to inspection, full ROM, edema Details: 1+ and lower leg <Monae Humphreys DO - Last Filed: 01/12/22 09:27> Initial Vital Signs Initial Vital Signs: Vital Signs Temperature 96.7 F L 01/11/22 16:20 Pulse Rate 60 01/11/22 16:20 Respiratory Rate 17 01/11/22 16:20 Blood Pressure 174/77 H 01/11/22 16:20 Pulse Oximetry 99 01/11/22 16:20 Oxygen Delivery Method 01/11/22 16:20 Course <Madhu Heard PA-C - Last Filed: 01/11/22 17:55> Reevaluation(s) Reevaluation #1: Spoke with patient and patient's family regarding the findings of the ultrasound. Based on the therapeutic level of the warfarin INR today of 2.6 I think it is feasible that we can leave the patient on warfarin tonight and she can contact Dr. Garcia's office in the morning to advise follow-up. She was agr eeable and all questions and concerns were addressed. Vital Signs Vital signs: Vital Signs - 8 hr 01/11/22 16:20 01/11/22 16:46 01/11/22 16:47 Temperature 96.7 F L Pulse Rate 60 62 61 Respiratory Rate 17 Blood Pressure 174/77 H Pulse Oximetry 99 94 95 Oxygen Delivery Method Room Air 01/11/22 16:47 Temperature Pulse Rate Respiratory Rate Blood Pressure 172/77 H Pulse Oximetry Oxygen Delivery Method <Monae Humphreys DO - Last Filed: 01/12/22 09:27> Vital Signs Vital signs: Vital Signs - 8 hr 01/11/22 16:20 01/11/22 16:46 01/11/22 16:47 Temperature 96.7 F L Pulse Rate 60 62 61 Respiratory Rate 17 Blood Pressure 174/77 H Pulse Oximetry 99 94 95 Oxygen Delivery Method Room Air 01/11/22 16:47 Temperature Pulse Rate Respiratory Rate Blood Pressure 172/77 H Pulse Oximetry Oxygen Delivery Method MDM - Extremity (Nontraumatic) <Madhu Heard PA-C - Last Filed: 01/11/22 17:55> Differential Diagnosis Differential diagnosis: Likely deep venous thrombosis of upper extremity Imaging Data US - DVT: Radiologist's Impression: [address] [address] Ultrasound Report Signed Patient: Winston Houston MR#: [id number] : 1935 Acct:[id number] Age/Sex: 86 / M Date of Service: 01/11/22 Loc: US Accession Number: [id number] ?? Procedure: US periph venous low extrem rt Ordering Provider: Sunday Wesley MD PROCEDURE:? US PERIPH VENOUS LOW EXTREM RT ? INDICATIONS:? PAIN IN RIGHT LEG ? TECHNIQUE:? Real-time imaging, as well as color and pulse Doppler interrogation, were performed of the lower extremity deep veins from the inguinal ligament to the popliteal fossa.? ? COMPARISON:? None. ? FINDINGS:? Acute appearing superimposed upon chronic appearing thrombus is identified within the right superficial femoral vein, right popliteal vein as well as the proximal mid segments of the lower right posterior tibial veins. ? IMPRESSION:? Abnormal study demonstrating right lower extremity deep vein thrombosis. ? ? Dictated by: Hope Vasquez MD, PhD on 01/11/2022 at 15:53 ? ? Approved by: Hope Vasquez MD, PhD on 01/11/2022 at 15:54?? [facility] Narrative Medical decision making narrative: Patient was seen today for his positive findings on his ultrasound of his right leg. He was found to have a DVT in his right popliteal fossa. Which aligns with where his pain has been predominantly. Family will contact Dr. Garcia's office in the morning to make arrangements for follow-up. Patient will remain on Coumadin until follow-up in up with Dr. Garcia's office. Patient will be discharged home. Discharge Plan Departure Patient Disposition: Home Clinical Impression: Deep vein thrombosis of lower extremity Instructions: DI for Deep Vein Thrombosis Activity Restrictions/Additional Instructions: Contact Dr. Garcia's office in the morning and let them know that you were seen in the emergency room and the ultrasound showed a DVT in the right popliteal fossa. Thank you for the opportunity to care for you today. Prescriptions: No Action acetaminophen-codeine 300-30 mg tablet 1 tab PO Q6H PRN (Reason: Pain (Scale Score 1-3)) metformin 500 mg tablet 500 mg PO BEDTIME magnesium chloride 400 mg PO DAILY furosemide 20 mg Tablet 20 mg PO DAILY losartan 100 mg PO DAILY carbamazepine [Tegretol] 200 mg Tablet 200 mg PO TID fluticasone propionate 50 mcg/actuation spray,suspension 50 mcg Intranasal BID pantoprazole 40 mg tablet,delayed release (DR/EC) 40 mg PO DAILY tamsulosin 0.4 mg capsule 0.4 mg PO BEDTIME fluticasone propion-salmeterol [Advair Diskus] 250-50 mcg/dose Blister With Device 1 inh INHALATION BID atorvastatin 80 mg Tablet 80 mg PO BEDTIME metoprolol succinate 100 mg Tablet Extended Release 24 Hr 100 mg PO BID penicillin V potassium 500 mg Tablet 500 mg PO Q6HR clopidogrel [Plavix] 75 mg Tablet 75 mg PO DAILY amlodipine 5 mg Tablet 5 mg PO DAILY allopurinol 100 mg Tablet 100 mg PO DAILY warfarin 5 mg Tablet 10 mg PO USEASDIRECTD Rx Instructions: 10 mg Mon-Sat, 15 mg on Sun gabapentin 100 mg Capsule 100 mg PO TID Qty: 90 0RF Referrals: Trinidad Garcia MD [Primary Care Provider] - Visit Report Forms: Patient Portal/API <Monae Humphreys DO - Last Filed: 01/12/22 09:27> [facility]ign [facility] Att[facility]: I was immediately available in the department for consultation. Documentation has been reviewed. I agree with assessment and plan. Ultrasound shows acute on chronic thrombus in the right superficial femoral vein right popliteal vein as well as proximal mid segments of the right posterior tibial veins. Patient previously had pulmonary embolisms they are going to put him on Eliquis however due to interaction between Eliquis and Tegretol they did not. All medications Pradaxa Eliquis and Xarelto interact with Tegretol and make them less effective. Unfortunately patient has failed Coumadin therapy. In order to switch him over to 1 of these medications INR needs to be at 2.0 or below and then he can start 1 of these other medications. At this time he is anticoagulated he had his INR checked today it is 2.6. He we attempted many times to get in contact with someone from the office but were unsuccessful. Patient and will see a provider tomorrow to come up with a plan.
[2022-01-11 16:46] VITALS: PULSE 62; O2SAT 94
[2022-01-11 16:47] VITALS: BP 172/77; PULSE 61; O2SAT 95
--- NOTE | 2022-01-11 16:53 | PC.NURSE ---
pt presents to er today from imaging, was told her has a blood clot and needed to check into the ER for evaluation. Pt states he fell 4-5weeks ago hitting his toilet on the right leg and had terrible bruising on the outer thigh down to the calf. pt then states that one week ago, his bruise and pain moved to his inner thigh. ecg technician told him to go see doctor, today he was at his pcp and was sent her for US.
[2022-01-11 17:00] VITALS: BP 160/79; PULSE 61; O2SAT 95
[2022-01-11 17:30] VITALS: BP 167/78; PULSE 61; O2SAT 97
== END 2022-01-11 18:01 | disposition home or self-care (01) ==
PROVIDERS: Emergency Provider Physician Assistant; PCP Internal Medicine
DX: I82.411 Acute embolism and thrombosis of right femoral vein (principal); I82.431 Acute embolism and thrombosis of right popliteal vein; I82.441 Acute embolism and thrombosis of right tibial vein
CPT/HCPCS: 93971; 99281

== ENCOUNTER 2022-01-29 06:47 | Observation (INO) | payer OTHER, SELFPAY ==
[2021-12-04 01:36] VITALS: BMI 29.5
[2022-01-29] VITALS (24 sets, daily range): BP systolic 154–208; BP diastolic 67–124; PULSE 62–71; RESP 12–19; TEMP 36–36.5; O2SAT 92–97; BMI 26.6
--- NOTE | 2022-01-29 06:49 | DI.CT.S_ITS ---
PROCEDURE: CT HEAD/BRAIN WO CON INDICATIONS: AMS TECHNIQUE: Noncontrast 5 mm thick angled axial sections acquired from the foramen magnum to the vertex, with coronal and sagittal reformats. For radiation dose reduction, the following was used: automated exposure control, adjustment of mA and/or kV according to patient size. COMPARISON: [facility], CT, CT ANGIO HEAD AND NECK, 09/07/2021, 15:41. [facility], CT, CT HEAD/BRAIN WO CON, 12/03/2021, 22:49. FINDINGS: Image quality: Excellent. CSF spaces: Basal cisterns are patent. No extra-axial fluid collections. Ventricles are normal in size and shape. Incidental persistent cavum septum pellucidum et vergae noted. Brain: No midline shift. No intracranial masses or hemorrhage. Jasmine-white matter interface is normal. Moderate cerebral and cerebellar volume loss with multifocal white matter chronic ischemic change noted. Moderate calcified atherosclerotic plaque noted involving the cavernous portions of both internal carotid arteries. Mild left cerebellar gliosis and volume loss as well as probable Juan pledget in the left cerebellopontine angle consistent with neurovascular decompression. Skull and face: Calvarium and visualized facial bones are intact, without suspicious lesions. Prior left retrosigmoid craniotomy secured by straight plates Sinuses: Complete opacification of the left maxillary sinus and mucosal thickening in the right maxillary sinus associated with osseous wall thickening reflecting chronic sinusitis. Right sphenoid and left anterior ethmoid and frontal sinus mucosal thickening noted as well IMPRESSION: Atrophy and chronic ischemic change without intracranial hemorrhage or mass effect Probable Juan pledget in the left cerebellopontine angle associated with left retrosigmoid craniotomy and gliosis in the left cerebellar hemisphere consistent with prior neurovascular decompression Chronic sinusitis Approved by: Ehsan De León M.D. on 01/29/2022 at 7:01
--- NOTE | 2022-01-29 07:23 | ED.AMS ---
HPI - Altered Mental Status General Chief Complaint: Altered Mental Status Stated Complaint: AMS Time Seen by Provider: 01/29/22 06:47 Source: EMS Mode of arrival: EMS History of Present Illness HPI narrative: Patient brought in by ambulance from home. For altered mental status and decreased activity. at bedside. EMS was called the twice yesterday but refusal for transfer for the same complaint. Onset since 2 days ago. Patient denies any chest pain headache back pain or abdominal pain. Complains of right shoulder pain. No nausea vomiting or diarrhea. states that in the past 2 days he has not been eating or drinking. Not socializing okay usually does. Prior to this he was motivated in getting up to the kitchen interacting and socializing with her. Eating And drinking as well 5 weeks ago patient did fall. He has bruising to the right lower extremity. Is getting occupational therapy and physical therapy at home but recently has not had it. No known fractures from his fall. Patient at this time is using wheelchair to get around at home. He was on a walker. Related Data Home Medications Medication Instructions Recorded Confirmed fluticasone propionate 50 50 mcg intranasal BID 05/06/18 01/29/22 mcg/actuation nasal spray,suspension pantoprazole 40 mg tablet,delayed 40 mg PO DAILY 05/06/18 01/29/22 release tamsulosin 0.4 mg capsule 0.4 mg PO BEDTIME 05/06/18 01/29/22 acetaminophen 300 mg-codeine 30 mg 1 tab PO Q6H PRN Pain (Scale Score 03/31/20 01/29/22 tablet 1-3) metformin 500 mg tablet 500 mg PO BEDTIME 05/08/21 01/29/22 carbamazepine 200 mg tablet 200 mg PO TID 09/07/21 01/29/22 (Tegretol) furosemide 20 mg tablet 20 mg PO DAILY 09/07/21 01/29/22 allopurinol 100 mg tablet 100 mg PO DAILY 12/04/21 01/29/22 amlodipine 5 mg tablet 5 mg PO DAILY 12/04/21 01/29/22 atorvastatin 80 mg tablet 80 mg PO BEDTIME 12/04/21 01/29/22 clopidogrel 75 mg tablet (Plavix) 75 mg PO DAILY 12/04/21 01/29/22 fluticasone 250 mcg-salmeterol 50 1 inh inhalation BID 12/04/21 01/29/22 mcg/dose blistr powdr for inhalation (Advair Diskus) metoprolol succinate 100 mg 100 mg PO BID 12/04/21 01/29/22 tablet,extended release 24 hr warfarin 5 mg tablet 5 mg PO USEASDIRECTD 12/04/21 01/29/22 gabapentin 100 mg capsule 300 mg PO BID 01/29/22 01/29/22 losartan 100 mg tablet 1 tab PO DAILY 01/29/22 01/29/22 metformin 500 mg tablet 1,000 mg PO QAM 01/29/22 01/29/22 Allergies Allergy/AdvReac Type Severity Reaction Status Date / Time tolmetin Allergy Severe Anaphylaxis Verified 01/29/22 08:12 Review of Systems Review of Systems Narrative: GENERAL: Denies chills, positive for fatigue, malaise, negative for fever, sweats. HEENT: Denies sinus pain, ear pain, sore throat RESPIRATORY: Denies dyspnea, cough CARDIOVASCULAR: Denies chest pain, palpitations GASTROINTESTINAL: Denies nausea, vomiting, abdominal pain : Denies dysuria, frequency, hematuria MUSCULOSKELETAL: denies muscle or bony pain SKIN: Denies rash, skin lesions NEUROLOGIC: Denies weakness, numbness ROS Unobtainable: All systems reviewed & are unremarkable except as noted in HPI and below Patient History Medical History Bleeding ulcer Chronic anticoagulation Chronic gout Chronic kidney disease (CKD) stage G3a/A1, moderately decreased glomerular filtration rate (GFR) between 45-59 mL/min/1.73 square meter and albuminuria creatinine ratio less than 30 mg/g Diabetes type 2, controlled Heart attack Hyperlipidemia Hypertension Left bundle branch block Presence of combination internal cardiac defibrillator (ICD) and pacemaker Right leg weakness 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 EYES: Pupils equal round No scleral icterus. ENT: Mucous membranes moist. NECK: Trachea midline. CARDIOVASCULAR: Regular rate and rhythm without murmurs RESPIRATORY: Clear to auscultation. Breath sounds equal bilaterally. No wheezes, rales, or rhonchi. GASTROINTESTINAL: Abdomen soft, non-tender EXTREMITIES: No gross deformities. BACK: No flank tenderness. NEURO: AOx1. Clear speech no facial droop. Global weakness with attempts to elevate each leg. Able to bring up both arms and keep them steady in the air. No pronator drift. Equal soft electronics computer mechanic SKIN: Warm and dry PSYCH: Not anxious, is cooperative Initial Vital Signs Initial Vital Signs: Vital Signs Temperature 97.7 F 01/29/22 07:01 Pulse Rate 69 01/29/22 07:01 Respiratory Rate 18 01/29/22 07:01 Blood Pressure 208/124 H 01/29/22 07:01 Pulse Oximetry 97 01/29/22 07:01 Oxygen Delivery Method 01/29/22 07:01 Course Course Course Narrative: No new issues during course of stay Decision to Admit Date: 01/29/22 Decision to Admit time: 11:47 Orders Ordered: Acetaminophen (Acetaminophen 325 Mg Tablet) 650 mg PO Q6HR PRN PRN Reason: Fever/Mild Pain (1-3) Albuterol (Albuterol 2.5 Mg/3 Ml Neb (Adult)) 2.5 mg INH Q4HRWA PRN PRN Reason: Shortness Of Breath Allopurinol (Allopurinol 100 Mg Tablet) 100 mg PO DAILY [facility] Amlodipine Besylate (Amlodipine 5 Mg Tablet) 5 mg PO DAILY [facility] Atorvastatin Calcium (Atorvastatin 20 Mg Tablet) 80 mg PO BEDTIME ANDREI Budesonide (Budesonide 0.5 Mg/2 Ml Neb) 0.5 mg INH RTBID ANDREI Carbamazepine (Carbamazepine 200 Mg Tablet) 200 mg PO TID ANDREI Clopidogrel Bisulfate (Clopidogrel 75 Mg Tablet) 75 mg PO DAILY [facility]RE[facility] Docusate Sodium (Docusate 100 Mg Capsule) 100 mg PO BID ANDREI Fluticasone Propionate (Fluticasone 120 [place]/16 Gm [place].Susp) 1 spray NASAL BID ANDREI Sodium Chloride (Normal Saline 0.45%) 1,000 mls @ 100 mls/hr IV CONT ANDREI Last Admin: 01/29/22 16:25 Dose: 100 mls/hr Documented By: NORBERTO Dextrose (D10w) 250 mls @ 999 mls/hr IV PRN PRN PRN Reason: Hypoglycemia Insulin Human Lispro (Insulin Lispro 100 Unit/Ml 3ml Vial) 0 unit SUBCUT [facility]; Protocol Last Admin: 01/29/22 16:40 Dose: Not Given Documented By: NORBERTO Metoprolol Succinate (Metoprolol Er 50 Mg Tablet) 100 mg PO BID [facility] Ondansetron HCl (Ondansetron 4 Mg/2 Ml Inj) 4 mg IV Q8HR PRN PRN Reason: Nausea And Vomiting Pantoprazole Sodium (Pantoprazole Dr 40 Mg Tablet) 40 mg PO DAILY [facility] Sennosides (Sennosides 8.6 Mg Tablet) 17.2 mg PO BEDTIME [facility] Tamsulosin HCl (Tamsulosin 0.4 Mg Capsule) 0.4 mg PO BEDTIME [facility] Warfarin Sodium (Warfarin 5 Mg Tablet) 10 mg PO MOWEFRSA@1700 [facility] Warfarin Sodium (Warfarin 5 Mg Tablet) 15 mg PO SUTUTH@1700 [facility] Discontinued Medications Albuterol (Albuterol 2.5 Mg/3 Ml Neb (Adult)) 2.5 mg INH Q4HRWA [facility] Last Admin: 01/29/22 16:46 Dose: 2.5 mg Documented By: ELENA Albuterol (Albuterol 2.5 Mg/3 Ml Neb (Adult)) 2.5 mg INH Q2H PRN PRN Reason: Shortness Of Breath Sodium Chloride (Normal Saline 0.9%) 1,000 mls @ 100 mls/hr IV CONT [facility] Last Admin: 01/29/22 14:54 Dose: 100 mls/hr Documented By: Infusion: 01/29/22 14:54 Dose: 100 mls/hr Documented By: Admin: 01/29/22 09:15 Dose: 100 mls/hr Documented By: MARJAN Sodium Chloride (Normal Saline 0.9%) 500 mls @ 1,000 mls/hr IV BOLUS ONE Stop: 01/29/22 09:23 Last Infusion: 01/29/22 10:12 Dose: 0 mls/hr Documented By: Admin: 01/29/22 09:16 Dose: 1,000 mls/hr Documented By: MARJAN Warfarin Sodium (Warfarin 5 Mg Tablet) 10 mg PO MoWeFr@1700 [facility] Warfarin Sodium (Warfarin 5 Mg Tablet) 15 mg PO SuTuThSa@1700 [facility] Warfarin Sodium (Warfarin 5 Mg Tablet) 10 mg PO DAILY@1700 [facility] Reevaluation(s) Reevaluation #1: Left voicemail with to update findings as well as disposition to get admitted. Time: 12:23 Consultations Consultation #1: Spoke with hospitalist Dr. Light, will admit patient Time: 12:20 Vital Signs Vital signs: Vital Signs - 8 hr 01/29/22 11:30 01/29/22 11:31 01/29/22 11:31 Pulse Rate 66 66 Respiratory Rate 13 13 Blood Pressure 187/80 H Pulse Oximetry 92 92 01/29/22 12:00 01/29/22 12:00 Pulse Rate 65 Respiratory Rate 14 Blood Pressure 190/82 H Pulse Oximetry 95 MDM - Altered Mental Status Differential Diagnosis Differential diagnosis: Likely altered mental status, delirium, dementia, hypoglycemia, hyponatremia, other (Failure to thrive/UTI/dehydration) and sepsis Lab Data Result diagrams: 01/29/22 07:37 01/29/22 07:37 Labs: Lab Results 01/29/22 01/29/22 01/29/22 Range/Units 07:00 07:37 07:37 WBC 8.1 (4.5-11.0) X10^3/uL RBC 3.80 L (4.5-5.9) X10^6/uL Hgb 12.1 L (13.5-17.5) g/dL Hct 36.5 L (41-53) % MCV 96.0 (80-100) fL MCH 31.9 (26-34) PG MCHC 33.3 (30-36) % RDW 13.5 (11.6-14.8) % Plt Count 195 (150-400) X10^3/uL Neut % (Auto) 57.2 (50-75) % Lymph % (Auto) 30.6 (25-40) % [place] % (Auto) 9.0 (3-14) % Eos % (Auto) 2.7 (2-4) % Baso % (Auto) 0.5 (0-2) % Neut # (Auto) 4600 (6768-0987) /uL Lymph # (Auto) 2500 (1241-7093) /uL [place] # (Auto) 700 (0-900) /uL Eos # (Auto) 200 (0-450) /uL Baso # (Auto) 0 (0-100) /uL PT (10.1-12.7) SECONDS INR (0.9-1.3) APTT (26.4-36.2) SECONDS Sodium 141 (137-145) mmol/L Potassium 5.5 H (3.4-5.1) mmol/L Chloride 101 (98-107) mmol/L Carbon Dioxide 27 (22-32) mmol/L BUN 50 H (9-20) mg/dL Creatinine 1.68 H (0.66-1.25) mg/dL Estimated GFR 40 L (>60) mL/min BUN/Creatinine Ratio 29.8 H (6-22) Glucose 145 H (80-110) mg/dL Calcium 9.4 (8.4-10.2) mg/dL Magnesium (1.6-2.3) mg/dL Total Bilirubin 0.2 (0.2-1.3) mg/dL AST 46 (17-59) IU/L ALT 55 H (<50) IU/L Alkaline Phosphatase 89 (38-126) U/L Total Creatine Kinase (55-170) U/L CK-MB (CK-2) CK-MB (CK-2) Rel Index Troponin I (0.01-0.034) ng/mL Total Protein 7.8 (6.3-8.2) g/dL Albumin 4.7 (3.5-5.0) g/dL Globulin 3.1 (1.7-4.1) g/dL Albumin/Globulin Ratio 1.5 (1.0-2.8) Lipase (23-300) U/L Urine Color Urine Appearance Urine pH (4.5-8.0) Ur Specific [place] (1.000-1.035) Urine Protein (Negative) Urine Glucose (UA) (Negative) g/dL Urine Ketones (NEGATIVE) Urine Occult Blood (Negative) Urine Nitrate (Negative) Urine Bilirubin (NEGATIVE) Urine Urobilinogen (0.2) E.U./dL Ur Leukocyte Esterase (NEGATIVE) Urine RBC (0-5/HPF) Urine WBC (0-5/HPF) Urine Bacteria (None) Ur Culture Indicated? Acetaminophen < 10 (10-30) ug/mL Ethyl Alcohol ( - 10) mg/dL SARS-CoV-2 (PCR) Negative (Negative) 01/29/22 01/29/22 01/29/22 Range/Units 07:37 08:30 09:45 WBC (4.5-11.0) X10^3/uL RBC (4.5-5.9) X10^6/uL Hgb (13.5-17.5) g/dL Hct (41-53) % MCV (80-100) fL MCH (26-34) PG MCHC (30-36) % RDW (11.6-14.8) % Plt Count (150-400) X10^3/uL Neut % (Auto) (50-75) % Lymph % (Auto) (25-40) % [place] % (Auto) (3-14) % Eos % (Auto) (2-4) % Baso % (Auto) (0-2) % Neut # (Auto) (0420-2897) /uL Lymph # (Auto) (0528-2625) /uL [place] # (Auto) (0-900) /uL Eos # (Auto) (0-450) /uL Baso # (Auto) (0-100) /uL PT 35.8 H (10.1-12.7) SECONDS INR 3.1 H (0.9-1.3) APTT 44 H D (26.4-36.2) SECONDS Sodium (137-145) mmol/L Potassium (3.4-5.1) mmol/L Chloride (98-107) mmol/L Carbon Dioxide (22-32) mmol/L BUN (9-20) mg/dL Creatinine (0.66-1.25) mg/dL Estimated GFR (>60) mL/min BUN/Creatinine Ratio (6-22) Glucose (80-110) mg/dL Calcium (8.4-10.2) mg/dL Magnesium 1.7 (1.6-2.3) mg/dL Total Bilirubin (0.2-1.3) mg/dL AST (17-59) IU/L ALT (<50) IU/L Alkaline Phosphatase (38-126) U/L Total Creatine Kinase 49 L (55-170) U/L CK-MB (CK-2) TNP CK-MB (CK-2) Rel Index TNP Troponin I < 0.012 (0.01-0.034) ng/mL Total Protein (6.3-8.2) g/dL Albumin (3.5-5.0) g/dL Globulin (1.7-4.1) g/dL Albumin/Globulin Ratio (1.0-2.8) Lipase 85 (23-300) U/L Urine Color Yellow Urine Appearance Clear Urine pH 5.0 (4.5-8.0) Ur Specific [place] 1.015 (1.000-1.035) Urine Protein 1+ H (Negative) Urine Glucose (UA) Negative (Negative) g/dL Urine Ketones Negative (NEGATIVE) Urine Occult Blood Negative (Negative) Urine Nitrate Negative (Negative) Urine Bilirubin Negative (NEGATIVE) Urine Urobilinogen 0.2 (0.2) E.U./dL Ur Leukocyte Esterase Negative (NEGATIVE) Urine RBC 0-1/hpf (0-5/HPF) Urine WBC 0-1/hpf (0-5/HPF) Urine Bacteria None seen (None) Ur Culture Indicated? Cult not indicated Acetaminophen (10-30) ug/mL Ethyl Alcohol < 10 ( - 10) mg/dL SARS-CoV-2 (PCR) (Negative) Point of Care Testing Glucose POC 96 Urine Dip Bedside Urine Glucose Negative Bedside Urine Bilirubin + 1 Bedside Urine Ketone - Negative Urine Specific [place] 1.020 Bedside Urine Occult Blood - Negative Bedside Urine pH 5.5 Bedside Urine Protein + 30 Bedside Urine Urobilinogen - Negative Bedside Urine Nitrite - Negative Bedside Urine Leukocytes - Negative Esterase Imaging Data CT scan - head: Radiologist's Impression: [address] [address] [address] Scan Report Signed Patient: Winston Houston MR#: [id number] : 1935 Acct:[id number] Age/Sex: 86 / M Date of Service: 01/29/22 Loc: ED Accession Number: [id number] ?? Procedure: CT head/brain wo con Ordering Provider: Chinedu Christiansen D.O. PROCEDURE:? CT HEAD/BRAIN WO CON ? INDICATIONS:? AMS ? TECHNIQUE:? Noncontrast 5 mm thick angled axial sections acquired from the foramen magnum to the vertex, with coronal and sagittal reformats.? For radiation dose reduction, the following was used:? automated exposure control, adjustment of mA and/or kV according to patient size.? ? COMPARISON:? [facility], CT, CT ANGIO HEAD AND NECK, 09/07/2021, 15:41.? [facility], CT, CT HEAD/BRAIN WO CON, 12/03/2021, 22:49. ? FINDINGS:? Image quality:? Excellent.? ? CSF spaces:? Basal cisterns are patent.? No extra-axial fluid collections.? Ventricles are normal in size and shape.? Incidental persistent cavum septum pellucidum et vergae noted. ? Brain:? No midline shift.? No intracranial masses or hemorrhage.? Jasmine-white matter interface is normal.? Moderate cerebral and cerebellar volume loss with multifocal white matter chronic ischemic change noted. Moderate calcified atherosclerotic plaque noted involving the cavernous portions of both internal carotid arteries.? ? Mild left cerebellar gliosis and volume loss as well as probable Juan pledget in the left cerebellopontine angle consistent with neurovascular decompression. ? Skull and face:? Calvarium and visualized facial bones are intact, without suspicious lesions.? Prior left retrosigmoid craniotomy secured by straight plates ? Sinuses:? Complete opacification of the left maxillary sinus and mucosal thickening in the right maxillary sinus associated with osseous wall thickening reflecting chronic sinusitis.? Right sphenoid and left anterior ethmoid and frontal sinus mucosal thickening noted as well ? IMPRESSION:? ? Atrophy and chronic ischemic change without intracranial hemorrhage or mass effect ? Probable Juan pledget in the left cerebellopontine angle associated with left retrosigmoid craniotomy and gliosis in the left cerebellar hemisphere consistent with prior neurovascular decompression ? Chronic sinusitis ? ? ? Approved by: Ehsan De León M.D. on 01/29/2022 at 7:01? ECG Data Interpretation: Ventricular paced rhythm rate 70 MDM Narrative Medical decision making narrative: Appropriate for admission. Failure to thrive. Home outpatient setting for therapy not successful. No signs of infection at this time. No antibiotics indicated. Otherwise images and labs are reassuring. Review with hospice and agree for admit. Will need social media executive to review as well. Discharge Plan Departure Patient Disposition: Admitted as Observation Clinical Impression: Adult failure to thrive syndrome Admit Date/Time: 01/29/22 12:24 Admit Provider: Brandee Light
[2022-01-29 07:39] LABS: COVID19 -Nasal RAPID Negative (Negative)
[2022-01-29 07:51] LABS: Add Manual Diff / Slide Review NO; Basophils Absolute Auto 0 /uL (0-100); Basophils Percent Auto 0.5 % (0-2); Eosinophils Absolute Auto 200 /uL (0-450); Eosinophils Percent Auto 2.7 % (2-4); Hematocrit 36.5 % (41-53); Hemoglobin 12.1 g/dL (13.5-17.5); Lymphocytes Absolute Auto 2500 /uL (1100-4500); Lymphocytes Percent Auto 30.6 % (25-40); Mean Corpuscular HGB Conc 33.3 % (30-36); Mean Corpuscular Hemoglobin 31.9 PG (26-34); Monocytes Absolute Auto 700 /uL (0-900); Neutrophils Absolute Auto 4600 /uL (1500-7000); Neutrophils Percent Auto 57.2 % (50-75); Platelet Count 195 X10^3/uL (150-400); Red Cell Distribution Width 13.5 % (11.6-14.8); White Blood Cell Count 8.1 X10^3/uL (4.5-11.0)
[2022-01-29 07:54] LABS: Creatine Kinase 49 U/L (55-170); Ethanol (ETOH) < 10 mg/dL; Lipase 85 U/L (23-300); Magnesium 1.7 mg/dL (1.6-2.3)
[2022-01-29 08:06] LABS: Troponin I < 0.012 ng/mL (0.01-0.034)
[2022-01-29 08:17] LABS: Acetaminophen < 10 ug/mL (10-30); Alanine Aminotransferase 55 IU/L (<50); Albumin 4.7 g/dL (3.5-5.0); Albumin Globulin Ratio 1.5 (1.0-2.8); Alkaline Phosphatase 89 U/L (38-126); Aspartate Aminotransferase 46 IU/L (17-59); BUN Creatinine Ratio 29.8 (6-22); Bilirubin Total 0.2 mg/dL (0.2-1.3); Blood Urea Nitrogen 50 mg/dL (9-20); Calcium 9.4 mg/dL (8.4-10.2); Carbon Dioxide 27 mmol/L (22-32); Chloride 101 mmol/L (98-107); Estimated Glomerular Filt Rate 40 mL/min (>60); Globulin 3.1 g/dL (1.7-4.1); Glucose 145 mg/dL (80-110); HEMOLYSIS < 15 (0-50); Sodium 141 mmol/L (137-145); Total Protein 7.8 g/dL (6.3-8.2)
[2022-01-29 08:18] LABS: Potassium 5.5 mmol/L (3.4-5.1)
[2022-01-29 08:48] LABS: INR 3.1 (0.9-1.3); Prothrombin Time 35.8 SECONDS (10.1-12.7)
[2022-01-29 08:51] LABS: PTT Partial Thromboplastin Tim 44 SECONDS (26.4-36.2)
[2022-01-29] MEDS: SODIUM CHLORIDE 0.9% 1,000 ML 100 ML IV ×2 (09:15→14:54)
[2022-01-29] MEDS: SODIUM CHLORIDE 0.9% 500 ML 1000 ML IV (09:16)
[2022-01-29 09:54] LABS: Appearance Urine UA CLEAR; Bilirubin Urine UA NEGATIVE (NEGATIVE); Color Urine UA YELLOW; Glucose Urine UA NEGATIVE (Negative); Ketones Urine UA NEGATIVE (NEGATIVE); Leukocyte Esterase Urine UA NEGATIVE (NEGATIVE); Nitrite Urine UA NEGATIVE (Negative); Occult Blood Urine UA NEGATIVE (Negative); Protein Urine UA 1+ (Negative); Specific Gravity Urine UA 1.015 (1.000-1.035); Urobilinogen Urine UA 0.2 E.U./dL (0.2)
[2022-01-29 10:20] LABS: Bacteria Urine None Seen; RBC Urine 0-1/HPF (0-5/HPF); WBC Urine 0-1/HPF (0-5/HPF)
[2022-01-29 10:21] LABS: Culture Indicated Urine Cult Not Indicated
--- NOTE | 2022-01-29 15:14 | PC.NURSE ---
Addendum entered by Sam Stevens R.N. 01/29/22 17:47: Pt more alert taking dinner well. Easily swallowing. Asking appropriate questions. offers no overt complaint. Original Note: Pt arrived from ED and was settled to bed. Pt very quiet. Follows commands and is presently calm. Dr. Light is assessing Pt presently. Pt is following commands from Dr. Light. Pt appears attentive to Dr's conversation. Pt asking some questions.
[2022-01-29] MEDS: SODIUM CHLORIDE 0.45% 1,000 ML 100 ML IV (16:25)
[2022-01-29] MEDS: ALBUTEROL 2.5 MG/3 ML NEB (ADULT) INH (16:46)
--- NOTE | 2022-01-29 18:38 | P.HP_ITS ---
History of Present Illness History of Present Illness Date Patient Seen: 01/29/22 Chief complaint: AMS Narrative: 86-year-old gentleman with coronary artery disease, CKD 3, diabetes type 2, poorly controlled, ischemic cardiomyopathy with EF of 25-35% in early 2020, up to 45-50% in 2021, chronically anticoagulated, who is had a decline over the past couple of months since a previous fall December 04, 2021. At that time, he reportedly walker. He has been wheelchair-bound since that time. He received home PT and OT without significant improvement. More recently, his baseline has been utilizing a wheelchair to go into the kitchen, he would engage with his , he would eat and drink. Over the past 2 days, patient has not been eating or drinking. He was not socializing as he usually does. He was not mobilizing with his wheelchair as he typically does. EMS was called to the home 2 times yesterday but patient refused transfer. They were called again today and ultimately he agreed to transfer. In the emergency department, he underwent evaluation for infection with normal CBC, negative UA. Troponin was negative. Lipase within normal limits. No significant electrolyte derangements. He did have some SRINIVAS with a BUN of 50 and creatinine of 1.68. Slight hyperkalemia with potassium of 5.5. INR was 3.1. Admission was subsequently recommended. On arrival to the floor, RN noted that the patient seemed ?spacier ?than usual. The RN was familiar with him from prior hospitalization. Patient tells me he has been having some headaches over the past couple of days which she describes as frontal in nature. He denies any chest pain, shortness a breath, nausea, abdominal pain, constipation, dysuria. He asked me where his is. He did ask me once where he was and then repeated that he was at [facility]. He denies any specific neurologic symptoms such as weakness or numbness. He is unable to provide additional history secondary to his encephalopathy. Patient History Medical History Bleeding ulcer Chronic anticoagulation Chronic gout Chronic kidney disease (CKD) stage G3a/A1, moderately decreased glomerular filtration rate (GFR) between 45-59 mL/min/1.73 square meter and albuminuria creatinine ratio less than 30 mg/g Diabetes type 2, controlled Heart attack Hyperlipidemia Hypertension Left bundle branch block Presence of combination internal cardiac defibrillator (ICD) and pacemaker Right leg weakness 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 Thyroid nodule Surgical History H/O sinus surgery History of brain surgery History of cholecystectomy S/P CABG x 4 Comment: Past medical history as listed above. Additional history is significant for being wheelchair-bound Family & Social History Family history unavailable: Yes Social History: household members spouse Tobacco & Substance use: Smoking Status Never smoker alcohol intake never alcohol intake frequency 0-2 drinks per day Substance Use Type does not use Comment: Patient lives with his at home. He is a lifelong nonsmoker. Drinks 0-2 alcoholic beverages daily typically. Meds Home Medications and Allergies Home Medications Medication Instructions Recorded Confirmed Type fluticasone propionate 50 50 mcg intranasal BID 05/06/18 01/29/22 History mcg/actuation nasal spray,suspension pantoprazole 40 mg tablet,delayed 40 mg PO DAILY 05/06/18 01/29/22 History release tamsulosin 0.4 mg capsule 0.4 mg PO BEDTIME 05/06/18 01/29/22 History acetaminophen 300 mg-codeine 30 mg 1 tab PO Q6H PRN Pain (Scale Score 03/31/20 01/29/22 History tablet 1-3) metformin 500 mg tablet 500 mg PO BEDTIME 05/08/21 01/29/22 History carbamazepine 200 mg tablet 200 mg PO TID 09/07/21 01/29/22 History (Tegretol) furosemide 20 mg tablet 20 mg PO DAILY 09/07/21 01/29/22 History allopurinol 100 mg tablet 100 mg PO DAILY 12/04/21 01/29/22 History amlodipine 5 mg tablet 5 mg PO DAILY 12/04/21 01/29/22 History atorvastatin 80 mg tablet 80 mg PO BEDTIME 12/04/21 01/29/22 History clopidogrel 75 mg tablet (Plavix) 75 mg PO DAILY 12/04/21 01/29/22 History fluticasone 250 mcg-salmeterol 50 1 inh inhalation BID 12/04/21 01/29/22 History mcg/dose blistr powdr for inhalation (Advair Diskus) metoprolol succinate 100 mg 100 mg PO BID 12/04/21 01/29/22 History tablet,extended release 24 hr warfarin 5 mg tablet 5 mg PO USEASDIRECTD 12/04/21 01/29/22 History gabapentin 100 mg capsule 300 mg PO BID 01/29/22 01/29/22 History losartan 100 mg tablet 1 tab PO DAILY 01/29/22 01/29/22 History metformin 500 mg tablet 1,000 mg PO QAM 01/29/22 01/29/22 History Allergies Allergy/AdvReac Type Severity Reaction Status Date / Time tolmetin Allergy Severe Anaphylaxis Verified 01/29/22 08:12 Review of Systems Review of Systems Narrative: All other systems were reviewed negative Exam Vital Signs (past 8 hours): - 01/29/22 11:00 01/29/22 11:00 01/29/22 11:30 Temperature Pulse Rate 66 66 Respiratory Rate 13 13 Blood Pressure 189/86 H Pulse Oximetry 93 92 Oxygen Delivery Method Oxygen Flow Rate 01/29/22 11:31 01/29/22 11:31 01/29/22 12:00 Temperature Pulse Rate 66 Respiratory Rate 13 Blood Pressure 187/80 H 190/82 H Pulse Oximetry 92 Oxygen Delivery Method Oxygen Flow Rate 01/29/22 12:00 01/29/22 12:30 01/29/22 12:31 Temperature Pulse Rate 65 62 Respiratory Rate 14 13 Blood Pressure 174/80 H Pulse Oximetry 95 93 Oxygen Delivery Method Oxygen Flow Rate 01/29/22 12:31 01/29/22 13:00 01/29/22 13:01 Temperature Pulse Rate 62 64 Respiratory Rate 13 13 Blood Pressure 174/112 H Pulse Oximetry 93 93 Oxygen Delivery Method Oxygen Flow Rate 01/29/22 13:01 01/29/22 13:30 01/29/22 13:30 Temperature Pulse Rate 64 65 Respiratory Rate 14 13 Blood Pressure 168/86 H Pulse Oximetry 93 93 Oxygen Delivery Method Oxygen Flow Rate 01/29/22 14:00 01/29/22 14:00 01/29/22 15:13 Temperature Pulse Rate 64 71 Respiratory Rate 13 19 Blood Pressure 190/88 H 192/89 H Pulse Oximetry 94 96 Oxygen Delivery Method Oxygen Flow Rate 0 01/29/22 12:57 01/29/22 15:44 01/29/22 16:47 Temperature 96.8 F L Pulse Rate 68 67 Respiratory Rate 17 16 Blood Pressure 177/84 H Pulse Oximetry 95 96 Oxygen Delivery Method Room Air Room Air Oxygen Flow Rate 0 Oxygen Delivery Method Room Air Oxygen Flow Rate 0 Narrative Exam Narrative: GEN: Elderly male, alert but somewhat slow to respond to questions, no acute distress, flat affect HEENT: Normocephalic, does appear to have a mild left facial droop (unclear if this is acute or chronic), pupils equal round reactive to light, extraocular movements intact, sclerae anicteric, conjunctiva clear, nares patent, oropharynx reveals an intact soft and hard palate with very dry mucous membranes, dentition is fair, tongue is coated with white plaque NECK: Supple, no lymphadenopathy, thyroid without enlargement or nodularity, carotids no bruits CHEST: Respiratory excursions symmetric, clear to auscultation bilaterally CV: Regular rate and rhythm, no murmurs, rubs, gallops, PMI cannot be palpated ABD: Soft, nontender, nondistended, bowel sounds present in all 4 quadrants, no organomegaly or masses appreciated EXTR: Warm, well perfused, no clubbing/cyanosis, 1+ bilateral lower extremity pitting edema SKIN: Warm and dry, without rash NEURO: Alert and oriented x1-2, motor strength 5/5 throughout, sensation intact throughout, mild left facial droop as noted above PSYCH: Mood and affect difficult to assess, judgment and insight cannot be assessed Objective Labs Result Diagrams: 01/29/22 07:37 01/29/22 07:37 Labs: Laboratory Results - last 24 hr 01/29/22 01/29/22 01/29/22 07:00 07:37 07:37 WBC 8.1 RBC 3.80 L Hgb 12.1 L Hct 36.5 L MCV 96.0 MCH 31.9 MCHC 33.3 RDW 13.5 Plt Count 195 Neut % (Auto) 57.2 Lymph % (Auto) 30.6 [place] % (Auto) 9.0 Eos % (Auto) 2.7 Baso % (Auto) 0.5 Neut # (Auto) 4600 Lymph # (Auto) 2500 [place] # (Auto) 700 Eos # (Auto) 200 Baso # (Auto) 0 PT INR APTT Sodium 141 Potassium 5.5 H Chloride 101 Carbon Dioxide 27 BUN 50 H Creatinine 1.68 H Estimated GFR 40 L BUN/Creatinine Ratio 29.8 H Glucose 145 H Calcium 9.4 Magnesium Total Bilirubin 0.2 AST 46 ALT 55 H Alkaline Phosphatase 89 Total Creatine Kinase CK-MB (CK-2) CK-MB (CK-2) Rel Index Troponin I Total Protein 7.8 Albumin 4.7 Globulin 3.1 Albumin/Globulin Ratio 1.5 Lipase Urine Color Urine Appearance Urine pH Ur Specific [place] Urine Protein Urine Glucose (UA) Urine Ketones Urine Occult Blood Urine Nitrate Urine Bilirubin Urine Urobilinogen Ur Leukocyte Esterase Urine RBC Urine WBC Urine Bacteria Ur Culture Indicated? Acetaminophen < 10 Ethyl Alcohol SARS-CoV-2 (PCR) Negative 01/29/22 01/29/22 01/29/22 07:37 08:30 09:45 WBC RBC Hgb Hct MCV MCH MCHC RDW Plt Count Neut % (Auto) Lymph % (Auto) [place] % (Auto) Eos % (Auto) Baso % (Auto) Neut # (Auto) Lymph # (Auto) [place] # (Auto) Eos # (Auto) Baso # (Auto) PT 35.8 H INR 3.1 H APTT 44 H D Sodium Potassium Chloride Carbon Dioxide BUN Creatinine Estimated GFR BUN/Creatinine Ratio Glucose Calcium Magnesium 1.7 Total Bilirubin AST ALT Alkaline Phosphatase Total Creatine Kinase 49 L CK-MB (CK-2) TNP CK-MB (CK-2) Rel Index TNP Troponin I < 0.012 Total Protein Albumin Globulin Albumin/Globulin Ratio Lipase 85 Urine Color Yellow Urine Appearance Clear Urine pH 5.0 Ur Specific [place] 1.015 Urine Protein 1+ H Urine Glucose (UA) Negative Urine Ketones Negative Urine Occult Blood Negative Urine Nitrate Negative Urine Bilirubin Negative Urine Urobilinogen 0.2 Ur Leukocyte Esterase Negative Urine RBC 0-1/hpf Urine WBC 0-1/hpf Urine Bacteria None seen Ur Culture Indicated? Cult not indicated Acetaminophen Ethyl Alcohol < 10 SARS-CoV-2 (PCR) Assessment & Plan Assessment & Plan narrative: 1. Acute metabolic encephalopathy Likely multifactorial from acute kidney injury poor oral intake, and possible underlying neurologic insult. At this time, there is no evidence of infection. Head CT was negative. Plan to gently hydrate him overnight, pursue further information regarding his pacemaker/AICD to determine if it is conditional for an MRI in whether or not a member service representative can be called in to assist with an MRI versus simply repeating head CT in the coming [address] on neuro checks q.4 hours. Additionally, holding sedating medications including gabapentin and codeine. 2. Left-sided facial droop Will contact patient's spouse to determine whether this is a new finding. 3. Chronic anticoagulation I presume prior history of atrial fibrillation for which she had pacemaker placement. INR is 3.1. Will continue warfarin and monitor INRs closely. He is very slightly supratherapeutic. 4. Coronary artery disease No evidence for cardiac injury as his enzymes are negative and he is asymptomatic. 5. CKD 3 Baseline GFR appears to be in the high 50s. Presently it is 40. As noted, will plan gentle hydration and close monitoring. Will hold his diuretics. 6. Diabetes mellitus type [address] on fingersticks and sliding scale. 7. Asthma versus COPD He is on fluticasone at baseline. He is a lifelong nonsmoker. Uncertain what his primary diagnosis is. 8. Ischemic cardiomyopathy Status post AICD/pacemaker placement. He is presently appearing hypovolemic. Holding diuretics for now as noted. Will gently hydrate and monitor his fluid status closely. Code status Limited, DNI Prophylaxis Chronically anticoagulated with an INR of 3.1 Disposition Likely home at discharge Time Spent With Patient Critical Care time: I spent a total of [] minutes of critical care time on this patient's care today; this time is exclusive of procedural time.
[2022-01-29] MEDS: FLUTICASONE 120 SPRAY/16 GM SPRAY.SUSP NASAL (20:51)
[2022-01-29] MEDS: ATORVASTATIN 20 MG TABLET 80 MG PO (20:51)
[2022-01-29] MEDS: NYSTATIN SUSP 500,000 UNIT/5 ML UDC 500000 UNIT PO (20:51)
[2022-01-29] MEDS: carBAMazepine 200 MG TABLET PO (20:52)
[2022-01-29] MEDS: TAMSULOSIN 0.4 MG CAPSULE PO (20:52)
[2022-01-29] MEDS: SENNOSIDES 8.6 MG TABLET 17.2 MG PO (20:52)
[2022-01-29] MEDS: DOCUSATE 100 MG CAPSULE PO (20:52)
[2022-01-29] MEDS: METOPROLOL ER 50 MG TABLET 100 MG PO (20:52)
[2022-01-29] MEDS: INSULIN LISPRO 100 UNIT/ML 3ML VIAL SUBCUT (20:53)
[2022-01-29] MEDS: WARFARIN 5 MG TABLET 10 MG PO (21:00)
[2022-01-30] MEDS: SODIUM CHLORIDE 0.45% 1,000 ML 100 ML IV ×2 (02:34→11:53)
[2022-01-30 03:38] VITALS: BP 189/83; PULSE 60; RESP 18; TEMP 36.3; O2SAT 98
[2022-01-30 05:47] LABS: Add Manual Diff / Slide Review NO; Basophils Absolute Auto 0 /uL (0-100); Basophils Percent Auto 0.4 % (0-2); Eosinophils Absolute Auto 200 /uL (0-450); Eosinophils Percent Auto 2.7 % (2-4); Hematocrit 34.1 % (41-53); Hemoglobin 11.4 g/dL (13.5-17.5); Lymphocytes Absolute Auto 1600 /uL (1100-4500); Lymphocytes Percent Auto 20.8 % (25-40); Mean Corpuscular HGB Conc 33.4 % (30-36); Mean Corpuscular Hemoglobin 31.9 PG (26-34); Mean Corpuscular Volume 95.5 fL (80-100); Monocytes Absolute Auto 600 /uL (0-900); Monocytes Percent Auto 8.2 % (3-14); Neutrophils Absolute Auto 5300 /uL (1500-7000); Neutrophils Percent Auto 67.9 % (50-75); Platelet Count 181 X10^3/uL (150-400); Red Blood Cell Count 3.57 X10^6/uL (4.5-5.9); Red Cell Distribution Width 13.1 % (11.6-14.8); White Blood Cell Count 7.8 X10^3/uL (4.5-11.0)
[2022-01-30 05:53] LABS: INR 3.4 (0.9-1.3); Prothrombin Time 40.2 SECONDS (10.1-12.7)
[2022-01-30 05:58] LABS: BUN Creatinine Ratio 35.5 (6-22); Blood Urea Nitrogen 39 mg/dL (9-20); Calcium 8.6 mg/dL (8.4-10.2); Carbon Dioxide 25 mmol/L (22-32); Chloride 101 mmol/L (98-107); Estimated Glomerular Filt Rate > 60 mL/min (>60); Glucose 120 mg/dL (80-110); HEMOLYSIS < 15 (0-50); Potassium 4.6 mmol/L (3.4-5.1); Sodium 135 mmol/L (137-145)
[2022-01-30 07:00] VITALS: O2SAT 97
[2022-01-30 07:43] VITALS: BP 194/83; PULSE 64; RESP 20; TEMP 36.4; O2SAT 97
[2022-01-30 09:02] VITALS: BP 194/83; PULSE 64
[2022-01-30] MEDS: METOPROLOL ER 50 MG TABLET 100 MG PO (09:02)
[2022-01-30] MEDS: CLOPIDOGREL 75 MG TABLET PO (09:03)
[2022-01-30] MEDS: AMLODIPINE 5 MG TABLET PO (09:03)
[2022-01-30] MEDS: DOCUSATE 100 MG CAPSULE PO (09:03)
[2022-01-30] MEDS: allopurinoL 100 MG TABLET PO (09:03)
[2022-01-30] MEDS: NYSTATIN SUSP 500,000 UNIT/5 ML UDC 500000 UNIT PO ×2 (09:03→14:08)
[2022-01-30] MEDS: PANTOPRAZOLE DR 40 MG TABLET PO (09:03)
[2022-01-30] MEDS: carBAMazepine 200 MG TABLET PO (09:03)
[2022-01-30] MEDS: FLUTICASONE 120 SPRAY/16 GM SPRAY.SUSP NASAL (09:03)
[2022-01-30 11:20] VITALS: BP 169/77; PULSE 62; RESP 20; TEMP 36.4; O2SAT 97
[2022-01-30 11:30] VITALS: BP 169/77; PULSE 62
--- NOTE | 2022-01-30 11:52 | PT.IIE ---
Surgical History (Last Reviewed 01/29/22 @ 08:38 by Brennan Medrano MD) H/O sinus surgery History of brain surgery History of cholecystectomy S/P CABG x 4 Medical History (Last Reviewed 01/29/22 @ 08:38 by Brennan Medrano MD) Bleeding ulcer Chronic anticoagulation Chronic gout Chronic kidney disease (CKD) stage G3a/A1, moderately decreased glomerular filtration rate (GFR) between 45-59 mL/min/1.73 square meter and albuminuria creatinine ratio less than 30 mg/g Diabetes type 2, controlled Heart attack Hyperlipidemia Hypertension Left bundle branch block Presence of combination internal cardiac defibrillator (ICD) and pacemaker Right leg weakness 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 Thyroid nodule Physical Therapy Inpatient Evaluation/Re-Eval M1 PT/OT-IP Prior Functional Status Start: 01/30/22 09:44 Freq: NEEDED Status: Active Protocol: Document 01/30/22 11:52 AW (Rec: 01/30/22 12:53 AW [id number]) Medical Review Prior Functional Status Medical History Reviewed Yes Communication Pt is able to make his needs known. He presents with some confusion, speaks slowly, and tends to trail off mid- sentence at this encounter Mobility and Gait Pt uses FWW or 4WW for most mobility. For the past few days, he says he has needed a wheelchair. Activities of Daily Living and IADL's Pt reports independence with ADL's. He states his manages medications, drives, prepares meals, and handles finances.. Social History Household Members spouse Living Arrangements House Number of Floors (Floors) One Floor Number of Stairs To Enter/Railing? 4 AMEYA at the back door with R rail ascending. Pt tends to face the railing and climb stairs sideways with both hands on the rail. Home Environment High Toilet,Walk in Shower, Built-In Shower Seat Home Equipment Front Wheel Walker,Four Wheel Walker,Straight Cane,Lift Recliner Additional Social History Comment Pt lives in [place] with his , [place]. He has suction cup grab bar in the shower. M2 PT-IP Current Condition Start: 01/30/22 09:44 Freq: NEEDED Status: Active Protocol: Document 01/30/22 11:52 AW (Rec: 01/30/22 12:53 AW [id number]) Physical Therapy Current Condition Current Condition Evaluation Date 01/30/22 Treatment Diagnosis metabolic encephalopathy; generalized weakness Onset Date 01/29/22 M3 PT-IP Subjective Start: 01/30/22 09:44 Freq: NEEDED Status: Active Protocol: Document 01/30/22 11:52 AW (Rec: 01/30/22 12:53 AW [id number]) Subjective Physical Therapy Visit Type Type Initial Evaluation Visit Start Time 11:15 Visit Stop Time 11:52 Total Visit Minutes 37 Physical Therapy Visit Comments Patient Comments Pt is willing to participate with PT Patient Goals Return home with spouse support. Therapy Pain Assessment Pain When Pain Assessed During Mobility Pain Present Pain Present Denied Pain M4 PT-IP Mobility and Gait Start: 01/30/22 09:44 Freq: NEEDED Status: Active Protocol: Document 01/30/22 11:52 AW (Rec: 01/30/22 13:11 AW [id number]) PT-Bed Mobility Assessment Supine to Sit Supine to Sit Moderate Assistance,1 Person Assistance PT-Transfer Assessment Sit to and From Stand Sit to and from Stand Minimal Assistance,Moderate Assistance,1 Person Assistance Equipment Transfer Assistive Device Gait Belt,Front Wheeled Walker Orthotic/Prosthetic Devices or Brace: No Transfers Transfer Destination Chair,Wheelchair Transfer Ability Level of Assist Minimal Assistance Comments Mobility Comments Pt was lying in bed as PT arrived. BP 182/79 HR 62 which was consistent with assessments during this hospital stay. Pt attempted to sit up EOB by moving his legs off the bed, rocking, and using momentum to right his trunk. He was unsuccessful and ultimately required mod A to sit up EOB. He sat with good seated balance and was able to scoot forward to feet flat on floor. He stood min A and used FWW to walk in the room and out to the halls. He was SBA to CGA for 180 feet wih FWW. Pt had no overt LOB and was careful to avoid obstacles in his path. Gait was notable for wide PURVI and slight forward trunk lean. Pt approached the therapy stairs and demonstrated up/down while holding on to R rail with both hands CGA. As he finished on the stairs, nursing notified PT that ventricular tachycardia was noted on telemetry. Pt sat in a w/c and was escorted back to his room . He stood mod A from the wheelchair and used FWW to walk to the chair, transferring min A. BP after activity was 186/85 HR 65. Pt was left in the chair with nursing attending. Gait Assessment Gait Gait Assistance Required: Standby Assistance,Contact Guard Assist Distance (Feet) 180 Assistive Devices Assistive Device Gait Belt,Front Wheeled Walker Orthotic/Prosthetic Devices or Brace: No Gait Deviations General Gait Pattern Decreased Stride Length, Decreased Feet Clearance, Flexed Trunk,Wide Based Gait Factors Limiting Gait Function Factors Limiting Gait Function Decreased Activity Tolerance, Decreased Strength,Poor Balance Comments Gait Comments See mobility comments for details. Stair Climbing Assessment Evaluation Level of Assist On Stairs Contact Guard Assistance Devices Stair Climbing Assistive Devices Right Railing Technique/Endurance Stair Climbing Direction Ascend and Descend Stair Climbing Technique Step to Step Number of Steps Climbed 3 Query Text: Stair Climbing Set # Repetitions (reps) 1 Comments Stair Climbing Comments Pt faces the right rail with both hands on the rail to ascend and descend. PT-Balance Assessment Sitting Balance and Reactions Static Sitting Balance Ability Good Dynamic Sitting Balance Ability Good Standing Balance and Reactions Static Standing Balance Ability Good Dynamic Standing Balance Ability Fair Device Used FWW M5 PT-IP Objective Assessments Start: 01/30/22 09:44 Freq: NEEDED Status: Active Protocol: Document 01/30/22 11:52 AW (Rec: 01/30/22 13:11 AW [id number]) Orientation Orientation/Cognition Level of Alertness Confusional State Orientation Name,Place,Situation Language Function Ability Hard of Hearing Safety Awareness Decreased Safety Awareness Memory Description Short Term Impaired Gross Range of Motion Lower Extremity ROM Assessment Within Functional Limits Strength Lower Extremity Strength Assessment Bilaterally Impaired Hip 4/5 Knee 4+/5 Ankle 4-/5 Sensation Assessment Sensation Gross Sensation WNL Muscle Tone Muscle Tone WNL Yes M6 PT-IP Treatment Start: 01/30/22 09:44 Freq: NEEDED Status: Active Protocol: Document 01/30/22 11:52 AW (Rec: 01/30/22 13:11 AW [id number]) Physical Therapy Treatment Education Education Provided Safety M7 PT-IP Assessment and Plan Start: 01/30/22 09:44 Freq: NEEDED Status: Active Protocol: Document 01/30/22 11:52 AW (Rec: 01/30/22 13:11 AW [id number]) PT Summary Assessment and Plan Potential Rehabilitation Potential Good Status of Condition at Evaluation Evolving Summary Impairments Strength,Balance,Cognition,Bed Mobility,Transfers,Gait, Activity Tolerance Assessment Summary Winston is an 86 yo man seen for PT evaluation with admitting diagnosis of acute metabolic encephalopathy. He is modified independent for mobility and ADLs at baseline. He was admitted yesterday and appeared to improve with hydration. He required min/mod assist for bed mobility and sit to stand tody but was able to ambulate 180 feet with FWW SBA/CGA using FWW. He was also able to navigate stairs CGA. Telemetry noted runs of ventricular tachycardia during mobility. Pt will likely be safe to discharge home with assist once medically stable. He would benefit from home health therapies to improve strength, resilience, and mobility independence. Goals Bed Mobility Goal Standby Assistance Transfer Goal Standby Assistance,Front Wheeled Walker Gait Goal Independent,Standby Assistance ,Front Wheel Walker Gait Distance 150 Other Goals - up/down 4 steps with R rail ascending SBA Days to Meet Goals 5 Frequency of Treatment Frequency Of Treatment Once a Day Treatment Plan Physical Therapy Treatment Plan Bed Mobility Training,Transfer Training,Gait Training, Therapeutic Exercise,Balance Retraining,Discharge Planning, Hot or Cold Pack,Neuromuscular Re-ed Other Recommendations and Next Treatment call telemetry to alert that Focus pt will be up; mobility as tolerated including stairs Precautions Other Precautions falls risk Recommendations To Nursing Amount of Assist Needed 1 Person Assist Discharge Recommendations PT Discharge Recommendations Home with Assistance,Home Health Transportation Needs at Discharge Private Vehicle
[2022-01-30] MEDS: INSULIN LISPRO 100 UNIT/ML 3ML VIAL SUBCUT (11:54)
--- NOTE | 2022-01-30 12:39 | CM.DANOTE ---
DCP Assessment: Payor: [employer] PCP: Trinidad Garcia MD Pt is an 86 y.o. M who was brought into the ED via ambulance for altered mental status and decreased activity. Pt c/o R shoulder pain. was at bedside and stated that pt has not been eating or drinking for the past 2 days. Pt is getting occupational and physical therapy at home via [facility]. Pt uses his wheelchair at home and has a walker. Pt was admitted under observation for adult failure to thrive and acute metabolic encephalopathy. DCP met with pt bedside this morning to discuss planning. DCP introduced herself and role. Pt states that he lives in a 1 story house with his spouse [place]. Pt sates that he has walker that he uses daily. Pt states that he does not drive but relies on [place] for transportation. Pt instructed DCP to contact [place] regarding HH information. White board updated. Instructed to call. DCP contact [place]. [place] states that [facility] currently comes out to the house to see pt. [place] states that their last appointment with them will be Monday. [place] verifies that she takes care of the daily operations and she is in charge of appointments. PAP provided [place] with contact information for any other questions. DCP reached out to [facility] to update them on pt admission. [facility] unaware of his hospital admission. [facility] will follow up with PAP on Monday to determine if they need new order or if they are able to continue services without it. P: Once pt medically stable, pt to discharge home via spouse POV with [facility]. Ann Bergman RN/AILEEN Discharge Planning/Care Management CM Discharge Assessment Start: 01/30/22 09:04 Freq: Status: Active Protocol: Document 01/30/22 09:04 KAILEE (Rec: 01/30/22 09:05 KAILEE [id number]) Discharge Planning Assessment Assigned Warehouse Freight Handler Ann Bergman RN/AILEEN Advance Directives? Yes Advance Directives on File No History Provided By Patient,Medical Record Prior Living Arrangements House Household Members spouse Type of transporation used prior to Relies on Others admit Comment Spouse POV Independent with ADL's Yes Is patient alert and oriented? Yes Caregiver for Another No DME Already Rented / Owned FWW / Walker,Cane Comment Pt stated he inherited his mother in law's 4WW, w/c and electric recliner Discharge Plan Home Transportation Arrangement Spouse POV Referrals Initiated Other Additional Comment Will have to see how patient does with P.T. If patient plan is home with home health unknown : Has signed face to face form been completed? Whiteboard Updated in Patient Room with Yes name and ext. # of Warehouse Freight Handler Comment Instructed to call Review Status In Process Please Provide Date Initial DC 01/30/22 Assessment Was Performed Next Review Type Continued Stay Review
[2022-01-30 12:59] LABS: Magnesium 1.5 mg/dL (1.6-2.3)
[2022-01-30] MEDS: MAGNESIUM OXIDE 400 MG TABLET PO (14:08)
--- NOTE | 2022-01-30 18:18 | P.DS_ITS ---
History of Present Illness History of Present Illness Chief complaint: AMS Narrative: 86-year-old gentleman with coronary artery disease, CKD 3, diabetes type 2, poorly controlled, ischemic cardiomyopathy with EF of 25-35% in early 2020, up to 45-50% in 2021, chronically anticoagulated, who is had a decline over the past couple of months since a previous fall December 04, 2021. At that time, he reportedly walker. He has been wheelchair-bound since that time. He received home PT and OT without significant improvement. More recently, his baseline has been utilizing a wheelchair to go into the kitchen, he would engage with his , he would eat and drink. Over the past 2 days, patient has not been eating or drinking. He was not socializing as he usually does. He was not mobilizing with his wheelchair as he typically does. EMS was called to the home 2 times yesterday but patient refused transfer. They were called again today and ultimately he agreed to transfer. In the emergency department, he underwent evaluation for infection with normal CBC, negative UA. Troponin was negative. Lipase within normal limits. No significant electrolyte derangements. He did have some SRINIVAS with a BUN of 50 and creatinine of 1.68. Slight hyperkalemia with potassium of 5.5. INR was 3.1. Admission was subsequently recommended. On arrival to the floor, RN noted that the patient seemed ?spacier ?than usual. The RN was familiar with him from prior hospitalization. Patient tells me he has been having some headaches over the past couple of days which she describes as frontal in nature. He denies any chest pain, shortness a breath, nausea, abdominal pain, constipation, dysuria. He asked me where his is. He did ask me once where he was and then repeated that he was at [facility]. He denies any specific neurologic symptoms such as weakness or numbness. He is unable to provide additional history secondary to his encephalopathy. Discharge Providers Provider Date of admission: 01/29/22 12:24 Discharge Date: 01/30/22 Primary care physician: Trinidad Garcia MD Consults: 01/29/22 15:23 Consult to Dietitian, Adult Routine Comment: Reason For Exam: altered mental status, decrease po last 2 days 01/29/22 15:38 Consult to Discharge Planning Routine Comment: Home Health PT/OT most likely Consult to Occupational Therapy Evaluate & Treat Comment: Physician Instructions: Evaluate and treat Consult to Physical Therapy Evaluate & Treat Comment: Physician Instructions: Evaluate and Treat 01/29/22 16:12 Consult to Dietitian, Adult Routine Comment: Reason For Exam: FTT, Poor PO last two days. 01/30/22 12:54 Consult to Home Health Routine Comment: Reason For Exam: Re-instate services- RN, PT, OT Discharge provider: Brandee Light MD Summary Hospital Course Discharge Diagnosis: Acute metabolic encephalopathy, resolved, felt likely to be secondary to SRINIVAS Left-sided facial droop, chronic, no acute neurologic issue Chronic anticoagulation with mildly supratherapeutic INR Coronary artery disease, chronic, stable SRINIVAS in the setting of CKD 3, improved Diabetes mellitus type 2 Asthma Ischemic cardiomyopathy, chronic, stable Nonsustained asymptomatic ventricular tachycardia Oral candidiasis Hospital Course: Patient was essentially non communicative in the emergency department. Etiology was unclear. Infection was ruled out. It was ultimately admitted for further evaluation and workup. Initially I had concern about a left facial droop. However after discussing further with patient's spouse this is his chronic appearance. Imaging of the head was negative. MRI was not pursued in light of his chronic facial asymmetry and the fact that he has a pacemaker/defibrillator in place. After admission, patient was placed on IV fluids due to concern for dehydration as his BUN and creatinine were more elevated than baseline. Patient showed rapid improvement with receipt of the IV fluids and was nearly back to baseline by the evening of admission. On the morning of discharge, patient reported he was feeling well. He was eating and drinking without difficulty. He worked with physical therapy and was able to ambulate with a walker navigate stairs without difficulty. While working with physical therapy he did have a 23 beat run of asymptomatic VT. This occurred during exertion while on the stairs. Magnesium level was performed which was slightly low. He received oral magnesium prior to discharge. It Is possible his electrolyte derangement triggered the nonsustained VT. Status at Discharge Cognitive/behavioral status at discharge: at baseline, oriented Functional status at discharge: uses cane/walker Overall status at discharge: patient is progressing back to baseline Time Spent with Patient Time spent: Greater than 30 minutes (Approximately 35 minutes coordinating discharge) Exam Vital Signs (past 8 hours): - 01/30/22 11:20 01/30/22 11:30 Temperature 97.5 F L Pulse Rate 62 62 Respiratory Rate 20 Blood Pressure 169/77 H 169/77 H Pulse Oximetry 97 Oxygen Flow Rate 0 Oxygen Delivery Method Room Air Oxygen Flow Rate 0 Narrative Exam Narrative: GEN:? Elderly male, alert and oriented x3, very pleasant, NAD HEENT:? Normocephalic, mild left facial asymmetry CHEST:? Respiratory excursions symmetric, clear to auscultation bilaterally CV:? Regular rate and rhythm, no murmurs, rubs, gallops, PMI cannot be palpated ABD:? Soft, nontender, nondistended, bowel sounds present in all 4 quadrants, no organomegaly or masses appreciated EXTR:? Warm, well perfused, no clubbing/cyanosis/edema SKIN:? Warm and dry, without rash NEURO:? Alert and oriented x 3, grossly intact Objective Labs Result Diagrams: 01/30/22 05:30 01/30/22 05:30 Labs: Laboratory Results - last 24 hr 01/30/22 01/30/22 01/30/22 05:30 05:30 05:30 WBC 7.8 RBC 3.57 L Hgb 11.4 L Hct 34.1 L MCV 95.5 MCH 31.9 MCHC 33.4 RDW 13.1 Plt Count 181 Neut % (Auto) 67.9 Lymph % (Auto) 20.8 L [place] % (Auto) 8.2 Eos % (Auto) 2.7 Baso % (Auto) 0.4 Neut # (Auto) 5300 Lymph # (Auto) 1600 [place] # (Auto) 600 Eos # (Auto) 200 Baso # (Auto) 0 PT 40.2 H INR 3.4 H Sodium 135 L Potassium 4.6 Chloride 101 Carbon Dioxide 25 BUN 39 H Creatinine 1.10 Estimated GFR > 60 BUN/Creatinine Ratio 35.5 H Glucose 120 H Calcium 8.6 Magnesium 01/30/22 05:30 WBC RBC Hgb Hct MCV MCH MCHC RDW Plt Count Neut % (Auto) Lymph % (Auto) [place] % (Auto) Eos % (Auto) Baso % (Auto) Neut # (Auto) Lymph # (Auto) [place] # (Auto) Eos # (Auto) Baso # (Auto) PT INR Sodium Potassium Chloride Carbon Dioxide BUN Creatinine Estimated GFR BUN/Creatinine Ratio Glucose Calcium Magnesium 1.5 [facility] History Bleeding ulcer Chronic anticoagulation Chronic gout Chronic kidney disease (CKD) stage G3a/A1, moderately decreased glomerular filtration rate (GFR) between 45-59 mL/min/1.73 square meter and albuminuria creatinine ratio less than 30 mg/g Diabetes type 2, controlled Heart attack Hyperlipidemia Hypertension Left bundle branch block Presence of combination internal cardiac defibrillator (ICD) and pacemaker Right leg weakness 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 Thyroid nodule Surgical History H/O sinus surgery History of brain surgery History of cholecystectomy S/P CABG x 4 Social History household members: spouse Smoking Status: Never smoker alcohol intake: never Discharge Plan Discharge Plan Patient Disposition: Home Provider Discharge Comment: Use your walker for mobility Restart your furosemide tomorrow. Your fluid goal is 1.75 Liters to 2 liters of fluid daily (56-64 ounces daily) Be cautious with how much coffee/caffeinated soda you drink daily Hold your metformin (diabetes med) until Monday am Restart home health for PT/OT Recommend follow-up PT/INR tomorrow. Results to go to your PCP Discharge orders & Medications Prescriptions: New warfarin 5 mg Tablet 10 mg PO MOWEFRSA@1700 Qty: 30 0RF warfarin 5 mg Tablet 15 mg PO SUTUTH@1700 Qty: 30 0RF nystatin 100,000 unit/mL Suspension 500,000 unit PO QID Qty: 200 0RF Continued acetaminophen-codeine 300-30 mg tablet 1 tab PO Q6H PRN (Reason: Pain (Scale Score 1-3)) metformin 500 mg tablet 500 mg PO BEDTIME furosemide 20 mg Tablet 20 mg PO DAILY carbamazepine [Tegretol] 200 mg Tablet 200 mg PO TID fluticasone propionate 50 mcg/actuation spray,suspension 50 mcg Intranasal BID pantoprazole 40 mg tablet,delayed release (DR/EC) 40 mg PO DAILY tamsulosin 0.4 mg capsule 0.4 mg PO BEDTIME atorvastatin 80 mg Tablet 80 mg PO BEDTIME metoprolol succinate 100 mg Tablet Extended Release 24 Hr 100 mg PO BID clopidogrel [Plavix] 75 mg Tablet 75 mg PO DAILY amlodipine 5 mg Tablet 5 mg PO DAILY allopurinol 100 mg Tablet 100 mg PO DAILY metformin 500 mg tablet 1,000 mg PO QAM losartan 100 mg tablet 1 tab PO DAILY gabapentin 100 mg capsule 300 mg PO BID Discontinued fluticasone propion-salmeterol [Advair Diskus] 250-50 mcg/dose Blister With Device 1 inh INHALATION BID warfarin 5 mg Tablet 5 mg PO USEASDIRECTD Rx Instructions: 10 mg Mon, wed, fri 15 mg on Mon, , th No Action magnesium 200 mg Tablet 400 mg PO DAILY Medication counseling provided by Pharmacist: No Follow up/Referrals: Trinidad Garcia MD [Primary Care Provider] - Diet/Activity/Treatments Diet: Carb-consistent/Diabetic Activity: As tolerated Oxygen: N/A Visit Report/Discharge Packet Instructions: DI for Warfarin Therapy Discharge Data Primary Care Provider: Trinidad Garcia Attending Provider: Branede Light
== END 2022-01-30 14:30 | disposition home or self-care (01) ==
LOC: ED 12:21 → AC 12:24
PROVIDERS: Emergency Medicine; Admitting Provider Family Medicine; Emergency Provider Emergency Medicine; PCP Internal Medicine; Referring Provider Emergency Medicine; Visit Provider Family Medicine
DX: G93.41 Metabolic encephalopathy (principal); R79.1 Abnormal coagulation profile; N17.9 Acute kidney failure, unspecified; I25.5 Ischemic cardiomyopathy; E11.22 Type 2 diabetes mellitus with diabetic chronic kidney disease; E11.65 Type 2 diabetes mellitus with hyperglycemia; N18.30 Chronic kidney disease, stage 3 unspecified; J45.909 Unspecified asthma, uncomplicated; I25.10 Atherosclerotic heart disease of native coronary artery without angina pectoris; E78.5 Hyperlipidemia, unspecified; I12.9 Hypertensive chronic kidney disease with stage 1 through stage 4 chronic kidney disease, or unspecified chronic kidney disease; M1A.9XX0 Chronic gout, unspecified, without tophus (tophi); I47.2 Ventricular tachycardia; Z20.822 Contact with and (suspected) exposure to COVID-19; Z79.84 Long term (current) use of oral hypoglycemic drugs; Z95.1 Presence of aortocoronary bypass graft; Z95.0 Presence of cardiac pacemaker; Z79.01 Long term (current) use of anticoagulants
CPT/HCPCS: 36415; 70450; 80048; 80053; 80320; 80329; 81001; 81003; 82550; 82962; 83690; 83735; 84484; 85025; 85610; 85730; 87635; 93005; 93010; 94640; 94760; 96372; 97162; 97530; 99284; C9803; G0378; G0480; J1815; J7050; J7613

== ENCOUNTER 2022-04-26 14:49 | Observation (INO) | payer OTHER, SELFPAY ==
[2022-01-29 12:57] VITALS: BMI 26.6
[2022-04-26] VITALS (21 sets, daily range): BP systolic 127–214; BP diastolic 66–87; PULSE 60–71; RESP 15–24; TEMP 36.6–37.2; O2SAT 73–99; BMI 20.9
--- NOTE | 2022-04-26 15:17 | DI.RAD.S_ITS ---
PROCEDURE: XR CHEST 2V INDICATIONS: Weakness TECHNIQUE: 2 views of the chest were acquired. COMPARISON: [facility], CR, XR CHEST 2V, 12/09/2021, 13:47. FINDINGS: Surgical changes and devices: Left chest wall 2 lead cardiac pacing device. Median sternotomy changes. Lungs and pleura: Increased interstitial markings in the central/perihilar lungs. Patchy bilateral airspace disease most notable in the left mid lung and left lung base. No visible pleural effusion or pneumothorax. Mediastinum: Mediastinal contours are normal. Heart size is normal. Bones and chest wall: No suspicious bony abnormalities. Soft tissues appear unremarkable. IMPRESSION: Increased central/perihilar interstitial markings with patchy bilateral airspace disease in the setting of cardiomegaly. Findings suggest cardiogenic pulmonary edema. Dictated by: Senthil Lino M.D. on 04/26/2022 at 15:59 Approved by: Senthil Lnio M.D. on 04/26/2022 at 16:00
--- NOTE | 2022-04-26 15:23 | ED_ITS ---
HPI - Weakness <Radhika Murphy PA-C - Last Filed: 04/26/22 20:58> General Chief complaint: Weakness Stated complaint: Wet coughx3 wks, gen. weakness Time Seen by Provider: 04/26/22 14:55 History of Present Illness HPI Narrative: 86-year-old male with past medical history coronary artery disease, CKD 3, type 2 diabetes, cardiomyopathy CHF, hypertension, hyperlipidemia brought in by EMS for 1 day of weakness and fatigue. Patient is accompanied by his , who st ates that he seemed per his baseline until this morning after breakfast when he was unable to stand up, was not speaking very much. Patient's waited 2-3 hours and tried with the same result, following which she called EMS. In the ED patient appears to have improved, is more alert and answering questions appropriately. He denies any pain or discomfort at the moment. Patient states he was just feeling very fatigued and tired this morning. Denies fever, chills, chest pain, shortness of breath, nausea, vomiting, abdominal pain, dysuria, lightheadedness, dizziness, syncope. He does endorse 3 weeks of a wet cough. Patient's states that he has been taking his medications as prescribed, she is the 1 that gives it to him. Patient's states that he was diagnosed with dehydration some time ago, and had the exact similar symptoms that he is having today. Related Data Home Medications Medication Instructions Recorded Confirmed fluticasone propionate 50 50 mcg intranasal BID 05/06/18 01/29/22 mcg/actuation nasal spray,suspension pantoprazole 40 mg tablet,delayed 40 mg PO DAILY 05/06/18 01/29/22 release tamsulosin 0.4 mg capsule 0.4 mg PO BEDTIME 05/06/18 01/29/22 acetaminophen 300 mg-codeine 30 mg 1 tab PO Q6H PRN Pain (Scale Score 03/31/20 01/29/22 tablet 1-3) metformin 500 mg tablet 500 mg PO BEDTIME 05/08/21 01/29/22 carbamazepine 200 mg tablet 200 mg PO TID 09/07/21 01/29/22 (Tegretol) furosemide 20 mg tablet 20 mg PO DAILY 09/07/21 01/29/22 allopurinol 100 mg tablet 100 mg PO DAILY 12/04/21 01/29/22 amlodipine 5 mg tablet 5 mg PO DAILY 12/04/21 01/29/22 atorvastatin 80 mg tablet 80 mg PO BEDTIME 12/04/21 01/29/22 clopidogrel 75 mg tablet (Plavix) 75 mg PO DAILY 12/04/21 01/29/22 metoprolol succinate 100 mg 100 mg PO BID 12/04/21 01/29/22 tablet,extended release 24 hr gabapentin 100 mg capsule 300 mg PO BID 01/29/22 01/29/22 losartan 100 mg tablet 1 tab PO DAILY 01/29/22 01/29/22 metformin 500 mg tablet 1,000 mg PO QAM 01/29/22 01/29/22 magnesium 200 mg tablet 400 mg PO DAILY 01/30/22 01/30/22 Previous Rx's Medication Instructions Recorded nystatin 100,000 unit/mL oral 500,000 unit (5 mL) PO QID #200 mL 01/30/22 suspension warfarin 5 mg tablet 10 mg PO MOWEFRSA@1700 #30 tabs 01/30/22 warfarin 5 mg tablet 15 mg PO SUTUTH@1700 #30 tabs 01/30/22 Allergies Allergy/AdvReac Type Severity Reaction Status Date / Time tolmetin Allergy Severe Anaphylaxis Verified 01/29/22 08:12 Review of Systems <Radhika Murphy PA-C - Last Filed: 04/26/22 20:58> Review of Systems ROS Unobtainable: All systems reviewed & are unremarkable except as noted in HPI and below Constitutional Constitutional: Denies chills, Denies fatigue, Denies fever(s), Denies frequent falls, Denies lethargy and Denies weakness Eyes Eyes: Denies change in vision, Denies eye discharge, Denies irritation and Denies loss of vision ENT Ears, Nose, Mouth, and Throat: Denies change in voice, Denies dizziness, Denies neck pain, Denies sore throat and Denies throat swelling Cardiovascular Cardiovascular: Denies chest pain, Denies irregular heart rhythm, Denies lightheadedness, Denies palpitations, Denies dyspnea, Denies dyspnea on exertion and Denies orthopnea Respiratory Respiratory: Denies cough, Denies dyspnea, Denies dyspnea on exertion and Denies wheezing Gastrointestinal Gastrointestinal: Denies abdominal pain, Denies change in bowel habits, Denies diarrhea, Denies nausea and Denies vomiting Genitourinary Genitourinary: Denies hematuria, Denies flank pain, Denies urinary incontinence and Denies urinary urgency Musculoskeletal Musculoskeletal: Denies back pain, Denies muscle weakness, Denies neck pain, Denies numbness and Denies tingling Integumentary/Breasts Skin/Breast: Denies pruritus, Denies erythema, Denies rash and Denies wounds Neurologic Neurologic: Denies behavioral changes, Denies confusion, Denies dizziness, Denies frequent falls, Denies loss of vision, Denies numbness, Denies tingling and Denies weakness Psychiatric Psychiatric: Denies anxiety, Denies behavioral changes, Denies confusion, Denies depression, Denies homicidal ideation and Denies suicidal ideation Endocrine Endocrine: Denies fatigue, Denies flushing and Denies palpitations Hematologic/Lymphatic Hematologic/Lymphatic: Denies easy bruising Allergic/Immunologic Allergic/Immunologic: Denies urticaria, Denies throat swelling and Denies wheezing Patient History <Radhika Murphy PA-C - Last Filed: 04/26/22 20:58> Medical History Bleeding ulcer Chronic anticoagulation Chronic gout Chronic kidney disease (CKD) stage G3a/A1, moderately decreased glomerular filtration rate (GFR) between 45-59 mL/min/1.73 square meter and albuminuria creatinine ratio less than 30 mg/g Diabetes type 2, controlled Heart attack Hyperlipidemia Hypertension Left bundle branch block Presence of combination internal cardiac defibrillator (ICD) and pacemaker Right leg weakness 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 Thyroid nodule Surgical History H/O sinus surgery History of brain surgery History of cholecystectomy S/P CABG x 4 Social History household members: spouse Smoking Status: Never smoker alcohol intake: never Smoking Status: Never smoker alcohol intake frequency: 0-2 drinks per day Substance Use Type: does not use Exam <Radhika Murphy PA-C - Last Filed: 04/26/22 20:58> Narrative Exam Narrative: Const General:?cooperative, healthy appearing and comfortable [facility] Head:?normal to inspection Ears:?hearing grossly normal bilaterally Nose:?external nose normal Face and sinus:?normal facial exam and sinuses nontender Mouth:?oral mucosae normal Throat:?posterior oropharynx normal Eyes General:?appearance normal, both eyes and all related structures Neck Neck:?normal visual inspection and no lymphadenopathy noted Resp Effort & Inspection:?normal respiratory effort Auscultation:?clear to auscultation bilaterally Cardio Rate:?regular rate Rhythm:?regular rhythm Neuro General:?patient alert, patient awake and patient oriented x3 Initial Vital Signs Initial Vital Signs: Vital Signs Temperature 98.9 F 04/26/22 14:49 Pulse Rate 71 04/26/22 14:49 Respiratory Rate 16 04/26/22 14:49 Blood Pressure 214/85 H 04/26/22 14:49 Pulse Oximetry 97 04/26/22 14:49 Oxygen Delivery Method 04/26/22 14:49 Oxygen Flow Rate 3 04/26/22 14:49 <Monae Humphreys DO - Last Filed: 04/27/22 00:43> Initial Vital Signs Initial Vital Signs: Vital Signs Temperature 98.9 F 04/26/22 14:49 Pulse Rate 71 04/26/22 14:49 Respiratory Rate 16 04/26/22 14:49 Blood Pressure 214/85 H 04/26/22 14:49 Pulse Oximetry 97 04/26/22 14:49 Oxygen Delivery Method 04/26/22 14:49 Oxygen Flow Rate 3 04/26/22 14:49 Course <Radhika Murphy PA-C - Last Filed: 04/26/22 20:58> Orders Ordered: ED Orders 04/26/22 15:50 COVID19 -Nasal RAPID/Pre-Proc Stat 04/26/22 16:10 BNP [NT-proBNP (BNP-Adult 18+)] Stat CBC Auto Diff [Complete Blood Count AUTO DIFF] Stat CMP [Comprehensive Metabolic Panel] Stat Lactate (Lactic Acid) Stat Magnesium Stat Troponin & CK Cardiac Panel Stat 04/26/22 16:43 Urine Microscopic Stat 04/26/22 19:55 Lactate (Lactic Acid) Stat Amlodipine Besylate (Amlodipine 5 Mg Tablet) 5 mg PO DAILY ANDREI Atorvastatin Calcium (Atorvastatin 20 Mg Tablet) 80 mg PO BEDTIME ANDREI Clopidogrel Bisulfate (Clopidogrel 75 Mg Tablet) 75 mg PO DAILY [facility] Gabapentin (Gabapentin 100 Mg Capsule) 300 mg PO BID ANDREI Last Admin: 04/26/22 23:33 Dose: 300 mg Documented By: AGW Sodium Chloride (Normal Saline 0.9%) 1,000 mls @ 150 mls/hr IV CONT [facility] Dextrose/Lactated Ringer's (Dextrose 5%-Lactated Ringers) 1,000 mls @ 100 mls/hr IV CONT [facility] Last Admin: 04/26/22 23:33 Dose: 100 mls/hr Documented By: KWESI Losartan Potassium (Losartan 50 Mg Tablet) 100 mg PO DAILY [facility] Ondansetron HCl (Ondansetron 4 Mg/2 Ml Inj) 4 mg IV Q8HR PRN PRN Reason: Nausea And Vomiting Oxycodone HCl (Oxycodone Ir 10 Mg Tablet) 10 mg PO Q4HR PRN PRN Reason: Pain, Severe (7-10) Pantoprazole Sodium (Pantoprazole Dr 40 Mg Tablet) 40 mg PO DAILY [facility] Warfarin Sodium (Warfarin 5 Mg Tablet) 15 mg PO SUTUTH@1700 [facility] Warfarin Sodium (Warfarin 5 Mg Tablet) 10 mg PO MOWEFRSA@1700 [facility] Vital Signs Vital signs: Vital Signs - 8 hr 04/26/22 17:00 04/26/22 17:30 04/26/22 18:00 Pulse Rate 60 61 63 Respiratory Rate 15 20 16 Blood Pressure Pulse Oximetry 94 98 97 04/26/22 18:30 04/26/22 19:00 04/26/22 19:30 Pulse Rate 64 61 64 Respiratory Rate 15 16 20 Blood Pressure Pulse Oximetry 98 96 04/26/22 19:32 04/26/22 19:33 04/26/22 19:33 Pulse Rate 63 63 Respiratory Rate 18 18 Blood Pressure 189/77 H Pulse Oximetry 96 97 04/26/22 20:00 04/26/22 20:01 04/26/22 20:01 Pulse Rate 64 64 Respiratory Rate 18 18 Blood Pressure 186/83 H Pulse Oximetry 73 L 92 04/26/22 20:30 04/26/22 20:31 04/26/22 20:31 Pulse Rate 61 61 Respiratory Rate 15 16 Blood Pressure 172/77 H Pulse Oximetry 95 94 <Monae Humphreys DO - Last Filed: 04/27/22 00:43> Orders Ordered: ED Orders 04/26/22 15:50 COVID19 -Nasal RAPID/Pre-Proc Stat 04/26/22 16:10 BNP [NT-proBNP (BNP-Adult 18+)] Stat CBC Auto Diff [Complete Blood Count AUTO DIFF] Stat CMP [Comprehensive Metabolic Panel] Stat Lactate (Lactic Acid) Stat Magnesium Stat Troponin & CK Cardiac Panel Stat 04/26/22 16:43 Urine Microscopic Stat 04/26/22 19:55 Lactate (Lactic Acid) Stat Amlodipine Besylate (Amlodipine 5 Mg Tablet) 5 mg PO DAILY [facility] Atorvastatin Calcium (Atorvastatin 20 Mg Tablet) 80 mg PO BEDTIME [facility] Clopidogrel Bisulfate (Clopidogrel 75 Mg Tablet) 75 mg PO DAILY [facility] Gabapentin (Gabapentin 100 Mg Capsule) 300 mg PO BID [facility] Last Admin: 04/26/22 23:33 Dose: 300 mg Documented By: AGW Sodium Chloride (Normal Saline 0.9%) 1,000 mls @ 150 mls/hr IV CONT [facility] Dextrose/Lactated Ringer's (Dextrose 5%-Lactated Ringers) 1,000 mls @ 100 mls/hr IV CONT [facility] Last Admin: 04/26/22 23:33 Dose: 100 mls/hr Documented By: AGW Losartan Potassium (Losartan 50 Mg Tablet) 100 mg PO DAILY [facility] Ondansetron HCl (Ondansetron 4 Mg/2 Ml Inj) 4 mg IV Q8HR PRN PRN Reason: Nausea And Vomiting Oxycodone HCl (Oxycodone Ir 10 Mg Tablet) 10 mg PO Q4HR PRN PRN Reason: Pain, Severe (7-10) Pantoprazole Sodium (Pantoprazole Dr 40 Mg Tablet) 40 mg PO DAILY [facility] Warfarin Sodium (Warfarin 5 Mg Tablet) 15 mg PO SUTUTH@1700 [facility] Warfarin Sodium (Warfarin 5 Mg Tablet) 10 mg PO MOWEFRSA@1700 [facility] Vital Signs Vital signs: Vital Signs - 8 hr 04/26/22 17:00 04/26/22 17:30 04/26/22 18:00 Pulse Rate 60 61 63 Respiratory Rate 15 20 16 Blood Pressure Pulse Oximetry 94 98 97 04/26/22 18:30 04/26/22 19:00 04/26/22 19:30 Pulse Rate 64 61 64 Respiratory Rate 15 16 20 Blood Pressure Pulse Oximetry 98 96 04/26/22 19:32 04/26/22 19:33 04/26/22 19:33 Pulse Rate 63 63 Respiratory Rate 18 18 Blood Pressure 189/77 H Pulse Oximetry 96 97 04/26/22 20:00 04/26/22 20:01 04/26/22 20:01 Pulse Rate 64 64 Respiratory Rate 18 18 Blood Pressure 186/83 H Pulse Oximetry 73 L 92 04/26/22 20:30 04/26/22 20:31 04/26/22 20:31 Pulse Rate 61 61 Respiratory Rate 15 16 Blood Pressure 172/77 H Pulse Oximetry 95 94 MDM - Weakness <Radhika Murphy PA-C - Last Filed: 04/26/22 20:58> Lab Data Result diagrams: 04/26/22 16:10 04/26/22 16:10 Labs: Lab Results 04/26/22 04/26/22 04/26/22 Range/Units 15:50 16:10 16:10 WBC 9.3 (4.5-11.0) X10^3/uL RBC 3.61 L (4.5-5.9) X10^6/uL Hgb 11.2 L (13.5-17.5) g/dL Hct 34.0 L (41-53) % MCV 94.3 (80-100) fL MCH 31.0 (26-34) PG MCHC 32.9 (30-36) % RDW 13.7 (11.6-14.8) % Plt Count 200 (150-400) X10^3/uL Neut % (Auto) 81.6 H (50-75) % Lymph % (Auto) 10.2 L (25-40) % [place] % (Auto) 5.7 (3-14) % Eos % (Auto) 1.5 L (2-4) % Baso % (Auto) 1.0 (0-2) % Neut # (Auto) 7600 H (4427-6844) /uL Lymph # (Auto) 900 L (0457-1064) /uL [place] # (Auto) 500 (0-900) /uL Eos # (Auto) 100 (0-450) /uL Baso # (Auto) 100 (0-100) /uL Sodium 136 L (137-145) mmol/L Potassium 4.5 (3.4-5.1) mmol/L Chloride 97 L (98-107) mmol/L Carbon Dioxide 29 (22-32) mmol/L BUN 36 H (9-20) mg/dL Creatinine 1.17 (0.66-1.25) mg/dL Estimated GFR > 60 (>60) mL/min BUN/Creatinine Ratio 30.8 H (6-22) Glucose 268 H (80-110) mg/dL Lactate (0.7-2.1) mmol/L Calcium 8.7 (8.4-10.2) mg/dL Magnesium 1.7 (1.6-2.3) mg/dL Total Bilirubin 0.4 (0.2-1.3) mg/dL AST 25 (17-59) IU/L ALT 24 (<50) IU/L Alkaline Phosphatase 79 (38-126) U/L Total Creatine Kinase 56 (55-170) U/L CK-MB (CK-2) TNP CK-MB (CK-2) Rel Index TNP Troponin I < 0.012 (0.01-0.034) ng/mL NT-Pro-B Natriuret Pep 627 H (<450) pg/mL Total Protein 6.9 (6.3-8.2) g/dL Albumin 3.9 (3.5-5.0) g/dL Globulin 3.0 (1.7-4.1) g/dL Albumin/Globulin Ratio 1.3 (1.0-2.8) Urine RBC (0-5/HPF) Urine WBC (0-5/HPF) Ur Squamous Epith Cells (0-5/HPF) Urine Bacteria (None) Urine Mucus (Negative) Ur Culture Indicated? SARS-CoV-2 (PCR) Negative (Negative) 04/26/22 04/26/22 04/26/22 Range/Units 16:10 16:43 18:33 WBC (4.5-11.0) X10^3/uL RBC (4.5-5.9) X10^6/uL Hgb (13.5-17.5) g/dL Hct (41-53) % MCV (80-100) fL MCH (26-34) PG MCHC (30-36) % RDW (11.6-14.8) % Plt Count (150-400) X10^3/uL Neut % (Auto) (50-75) % Lymph % (Auto) (25-40) % [place] % (Auto) (3-14) % Eos % (Auto) (2-4) % Baso % (Auto) (0-2) % Neut # (Auto) (8257-4349) /uL Lymph # (Auto) (9281-5385) /uL [place] # (Auto) (0-900) /uL Eos # (Auto) (0-450) /uL Baso # (Auto) (0-100) /uL Sodium (137-145) mmol/L Potassium (3.4-5.1) mmol/L Chloride (98-107) mmol/L Carbon Dioxide (22-32) mmol/L BUN (9-20) mg/dL Creatinine (0.66-1.25) mg/dL Estimated GFR (>60) mL/min BUN/Creatinine Ratio (6-22) Glucose (80-110) mg/dL Lactate 2.8 H 2.7 H (0.7-2.1) mmol/L Calcium (8.4-10.2) mg/dL Magnesium (1.6-2.3) mg/dL Total Bilirubin (0.2-1.3) mg/dL AST (17-59) IU/L ALT (<50) IU/L Alkaline Phosphatase (38-126) U/L Total Creatine Kinase (55-170) U/L CK-MB (CK-2) CK-MB (CK-2) Rel Index Troponin I (0.01-0.034) ng/mL NT-Pro-B Natriuret Pep (<450) pg/mL Total Protein (6.3-8.2) g/dL Albumin (3.5-5.0) g/dL Globulin (1.7-4.1) g/dL Albumin/Globulin Ratio (1.0-2.8) Urine RBC None seen (0-5/HPF) Urine WBC None seen (0-5/HPF) Ur Squamous Epith Cells 1-5 /hpf (0-5/HPF) Urine Bacteria None seen (None) Urine Mucus 1+ H (Negative) Ur Culture Indicated? Cult not indicated SARS-CoV-2 (PCR) (Negative) 04/26/22 Range/Units 19:55 WBC (4.5-11.0) X10^3/uL RBC (4.5-5.9) X10^6/uL Hgb (13.5-17.5) g/dL Hct (41-53) % MCV (80-100) fL MCH (26-34) PG MCHC (30-36) % RDW (11.6-14.8) % Plt Count (150-400) X10^3/uL Neut % (Auto) (50-75) % Lymph % (Auto) (25-40) % [place] % (Auto) (3-14) % Eos % (Auto) (2-4) % Baso % (Auto) (0-2) % Neut # (Auto) (7640-6801) /uL Lymph # (Auto) (6793-4422) /uL [place] # (Auto) (0-900) /uL Eos # (Auto) (0-450) /uL Baso # (Auto) (0-100) /uL Sodium (137-145) mmol/L Potassium (3.4-5.1) mmol/L Chloride (98-107) mmol/L Carbon Dioxide (22-32) mmol/L BUN (9-20) mg/dL Creatinine (0.66-1.25) mg/dL Estimated GFR (>60) mL/min BUN/Creatinine Ratio (6-22) Glucose (80-110) mg/dL Lactate 2.7 H (0.7-2.1) mmol/L Calcium (8.4-10.2) mg/dL Magnesium (1.6-2.3) mg/dL Total Bilirubin (0.2-1.3) mg/dL AST (17-59) IU/L ALT (<50) IU/L Alkaline Phosphatase (38-126) U/L Total Creatine Kinase (55-170) U/L CK-MB (CK-2) CK-MB (CK-2) Rel Index Troponin I (0.01-0.034) ng/mL NT-Pro-B Natriuret Pep (<450) pg/mL Total Protein (6.3-8.2) g/dL Albumin (3.5-5.0) g/dL Globulin (1.7-4.1) g/dL Albumin/Globulin Ratio (1.0-2.8) Urine RBC (0-5/HPF) Urine WBC (0-5/HPF) Ur Squamous Epith Cells (0-5/HPF) Urine Bacteria (None) Urine Mucus (Negative) Ur Culture Indicated? SARS-CoV-2 (PCR) (Negative) Urine Dip Bedside Urine Glucose Negative Bedside Urine Bilirubin - Negative Bedside Urine Ketone - Negative Urine Specific Mcd[place]ough 1.015 Bedside Urine Occult Blood - Negative Bedside Urine pH 6.0 Bedside Urine Protein + 30 Bedside Urine Urobilinogen - Negative Bedside Urine Nitrite - Negative Bedside Urine Leukocytes - Negative Esterase Imaging Data Chest x-ray: Radiologist Impression: PROCEDURE:? XR CHEST 2V ? INDICATIONS:? Weakness ? TECHNIQUE:? 2 views of the chest were acquired.? ? COMPARISON:? [facility], CR, XR CHEST 2V, 12/09/2021, 13:47. ? FINDINGS:? ? Surgical changes and devices:? Left chest wall 2 lead cardiac pacing device.? Median sternotomy changes. ? Lungs and pleura:? Increased interstitial markings in the central/perihilar lungs.? Patchy bilateral airspace disease most notable in the left mid lung and left lung base.? No visible pleural effusion or pneumothorax. ? Mediastinum:? Mediastinal contours are normal.? Heart size is normal.? ? Bones and chest wall:? No suspicious bony abnormalities.? Soft tissues appear unremarkable.? ? IMPRESSION:? Increased central/perihilar interstitial markings with patchy bilateral airspace disease in the setting of cardiomegaly.? Findings suggest cardiogenic pulmonary edema. ? ? Dictated by: Senthil Lino M.D. on 04/26/2022 at 15:59 ? ? Approved by: Senthil Lino M.D. on 04/26/2022 at 16:00 ? [facility] Narrative Medical decision making narrative: 86-year-old male with past medical history coronary artery disease, CKD 3, type 2 diabetes, cardiomyopathy CHF, hypertension, hyperlipidemia brought in by EMS for 1 day of weakness and fatigue. Concern for acute CHF exacerbation versus pneumonia versus COVID-19 infection versus other viral syndrome versus ACS versus UTI versus dehydration versus metabolic derangements versus other. Will obtain EKG, chest x-ray, labs, troponin, BNP, lactate, UA. Will reassess. Lactate 2.8->2.7 woth 500ml saline. Will recheck lactate after aother 500ml bolus of saline. Patient appears stable and well in the ED. repeat lactate still at 2.7. Hospitalist consulted for possible admit to observation. Patient accepted for obs. <Monae Humphreys DO - Last Filed: 04/27/22 00:43> Lab Data Labs: Lab Results 04/26/22 04/26/22 04/26/22 Range/Units 15:50 16:10 16:10 WBC 9.3 (4.5-11.0) X10^3/uL RBC 3.61 L (4.5-5.9) X10^6/uL Hgb 11.2 L (13.5-17.5) g/dL Hct 34.0 L (41-53) % MCV 94.3 (80-100) fL MCH 31.0 (26-34) PG MCHC 32.9 (30-36) % RDW 13.7 (11.6-14.8) % Plt Count 200 (150-400) X10^3/uL Neut % (Auto) 81.6 H (50-75) % Lymph % (Auto) 10.2 L (25-40) % [place] % (Auto) 5.7 (3-14) % Eos % (Auto) 1.5 L (2-4) % Baso % (Auto) 1.0 (0-2) % Neut # (Auto) 7600 H (3137-2078) /uL Lymph # (Auto) 900 L (4292-7879) /uL [place] # (Auto) 500 (0-900) /uL Eos # (Auto) 100 (0-450) /uL Baso # (Auto) 100 (0-100) /uL Sodium 136 L (137-145) mmol/L Potassium 4.5 (3.4-5.1) mmol/L Chloride 97 L (98-107) mmol/L Carbon Dioxide 29 (22-32) mmol/L BUN 36 H (9-20) mg/dL Creatinine 1.17 (0.66-1.25) mg/dL Estimated GFR > 60 (>60) mL/min BUN/Creatinine Ratio 30.8 H (6-22) Glucose 268 H (80-110) mg/dL Lactate (0.7-2.1) mmol/L Calcium 8.7 (8.4-10.2) mg/dL Magnesium 1.7 (1.6-2.3) mg/dL Total Bilirubin 0.4 (0.2-1.3) mg/dL AST 25 (17-59) IU/L ALT 24 (<50) IU/L Alkaline Phosphatase 79 (38-126) U/L Total Creatine Kinase 56 (55-170) U/L CK-MB (CK-2) TNP CK-MB (CK-2) Rel Index TNP Troponin I < 0.012 (0.01-0.034) ng/mL NT-Pro-B Natriuret Pep 627 H (<450) pg/mL Total Protein 6.9 (6.3-8.2) g/dL Albumin 3.9 (3.5-5.0) g/dL Globulin 3.0 (1.7-4.1) g/dL Albumin/Globulin Ratio 1.3 (1.0-2.8) Urine RBC (0-5/HPF) Urine WBC (0-5/HPF) Ur Squamous Epith Cells (0-5/HPF) Urine Bacteria (None) Urine Mucus (Negative) Ur Culture Indicated? SARS-CoV-2 (PCR) Negative (Negative) 04/26/22 04/26/22 04/26/22 Range/Units 16:10 16:43 18:33 WBC (4.5-11.0) X10^3/uL RBC (4.5-5.9) X10^6/uL Hgb (13.5-17.5) g/dL Hct (41-53) % MCV (80-100) fL MCH (26-34) PG MCHC (30-36) % RDW (11.6-14.8) % Plt Count (150-400) X10^3/uL Neut % (Auto) (50-75) % Lymph % (Auto) (25-40) % [place] % (Auto) (3-14) % Eos % (Auto) (2-4) % Baso % (Auto) (0-2) % Neut # (Auto) (2063-8999) /uL Lymph # (Auto) (8839-3854) /uL [place] # (Auto) (0-900) /uL Eos # (Auto) (0-450) /uL Baso # (Auto) (0-100) /uL Sodium (137-145) mmol/L Potassium (3.4-5.1) mmol/L Chloride (98-107) mmol/L Carbon Dioxide (22-32) mmol/L BUN (9-20) mg/dL Creatinine (0.66-1.25) mg/dL Estimated GFR (>60) mL/min BUN/Creatinine Ratio (6-22) Glucose (80-110) mg/dL Lactate 2.8 H 2.7 H (0.7-2.1) mmol/L Calcium (8.4-10.2) mg/dL Magnesium (1.6-2.3) mg/dL Total Bilirubin (0.2-1.3) mg/dL AST (17-59) IU/L ALT (<50) IU/L Alkaline Phosphatase (38-126) U/L Total Creatine Kinase (55-170) U/L CK-MB (CK-2) CK-MB (CK-2) Rel Index Troponin I (0.01-0.034) ng/mL NT-Pro-B Natriuret Pep (<450) pg/mL Total Protein (6.3-8.2) g/dL Albumin (3.5-5.0) g/dL Globulin (1.7-4.1) g/dL Albumin/Globulin Ratio (1.0-2.8) Urine RBC None seen (0-5/HPF) Urine WBC None seen (0-5/HPF) Ur Squamous Epith Cells 1-5 /hpf (0-5/HPF) Urine Bacteria None seen (None) Urine Mucus 1+ H (Negative) Ur Culture Indicated? Cult not indicated SARS-CoV-2 (PCR) (Negative) 04/26/22 Range/Units 19:55 WBC (4.5-11.0) X10^3/uL RBC (4.5-5.9) X10^6/uL Hgb (13.5-17.5) g/dL Hct (41-53) % MCV (80-100) fL MCH (26-34) PG MCHC (30-36) % RDW (11.6-14.8) % Plt Count (150-400) X10^3/uL Neut % (Auto) (50-75) % Lymph % (Auto) (25-40) % [place] % (Auto) (3-14) % Eos % (Auto) (2-4) % Baso % (Auto) (0-2) % Neut # (Auto) (8359-1255) /uL Lymph # (Auto) (4585-7594) /uL [place] # (Auto) (0-900) /uL Eos # (Auto) (0-450) /uL Baso # (Auto) (0-100) /uL Sodium (137-145) mmol/L Potassium (3.4-5.1) mmol/L Chloride (98-107) mmol/L Carbon Dioxide (22-32) mmol/L BUN (9-20) mg/dL Creatinine (0.66-1.25) mg/dL Estimated GFR (>60) mL/min BUN/Creatinine Ratio (6-22) Glucose (80-110) mg/dL Lactate 2.7 H (0.7-2.1) mmol/L Calcium (8.4-10.2) mg/dL Magnesium (1.6-2.3) mg/dL Total Bilirubin (0.2-1.3) mg/dL AST (17-59) IU/L ALT (<50) IU/L Alkaline Phosphatase (38-126) U/L Total Creatine Kinase (55-170) U/L CK-MB (CK-2) CK-MB (CK-2) Rel Index Troponin I (0.01-0.034) ng/mL NT-Pro-B Natriuret Pep (<450) pg/mL Total Protein (6.3-8.2) g/dL Albumin (3.5-5.0) g/dL Globulin (1.7-4.1) g/dL Albumin/Globulin Ratio (1.0-2.8) Urine RBC (0-5/HPF) Urine WBC (0-5/HPF) Ur Squamous Epith Cells (0-5/HPF) Urine Bacteria (None) Urine Mucus (Negative) Ur Culture Indicated? SARS-CoV-2 (PCR) (Negative) Urine Dip Bedside Urine Glucose Negative Bedside Urine Bilirubin - Negative Bedside Urine Ketone - Negative Urine Specific [place] 1.015 Bedside Urine Occult Blood - Negative Bedside Urine pH 6.0 Bedside Urine Protein + 30 Bedside Urine Urobilinogen - Negative Bedside Urine Nitrite - Negative Bedside Urine Leukocytes - Negative Esterase Discharge Plan Departure Patient Disposition: Admitted as Observation Clinical Impression: Elevated lactic acid level Admit Date/Time: 04/26/22 20:54 Admit Provider: Annalisa Castellanos <Monae Humphreys DO - Last Filed: 04/27/22 00:43> Cosign ED Attending Cosignature Attestation: I was immediately available in the department for consultation. Documentation has been reviewed. I agree with assessment and plan.
[2022-04-26 16:19] LABS: COVID19 -Nasal RAPID Negative (Negative)
[2022-04-26 16:47] LABS: Add Manual Diff / Slide Review NO; Basophils Absolute Auto 100 /uL (0-100); Eosinophils Absolute Auto 100 /uL (0-450); Eosinophils Percent Auto 1.5 % (2-4); Hemoglobin 11.2 g/dL (13.5-17.5); Lymphocytes Absolute Auto 900 /uL (1100-4500); Lymphocytes Percent Auto 10.2 % (25-40); Mean Corpuscular HGB Conc 32.9 % (30-36); Mean Corpuscular Volume 94.3 fL (80-100); Monocytes Absolute Auto 500 /uL (0-900); Monocytes Percent Auto 5.7 % (3-14); Neutrophils Absolute Auto 7600 /uL (1500-7000); Neutrophils Percent Auto 81.6 % (50-75); Platelet Count 200 X10^3/uL (150-400); Red Blood Cell Count 3.61 X10^6/uL (4.5-5.9); Red Cell Distribution Width 13.7 % (11.6-14.8); White Blood Cell Count 9.3 X10^3/uL (4.5-11.0)
[2022-04-26 16:49] LABS: Lactate (Lactic Acid) 2.8 mmol/L (0.7-2.1)
[2022-04-26 16:50] LABS: Alanine Aminotransferase 24 IU/L (<50); Albumin 3.9 g/dL (3.5-5.0); Albumin Globulin Ratio 1.3 (1.0-2.8); Alkaline Phosphatase 79 U/L (38-126); Aspartate Aminotransferase 25 IU/L (17-59); BUN Creatinine Ratio 30.8 (6-22); Bilirubin Total 0.4 mg/dL (0.2-1.3); Blood Urea Nitrogen 36 mg/dL (9-20); Calcium 8.7 mg/dL (8.4-10.2); Carbon Dioxide 29 mmol/L (22-32); Chloride 97 mmol/L (98-107); Creatine Kinase 56 U/L (55-170); Estimated Glomerular Filt Rate > 60 mL/min (>60); Glucose 268 mg/dL (80-110); HEMOLYSIS 19 (0-50); Magnesium 1.7 mg/dL (1.6-2.3); Potassium 4.5 mmol/L (3.4-5.1); Sodium 136 mmol/L (137-145); Total Protein 6.9 g/dL (6.3-8.2)
[2022-04-26 17:01] LABS: NT-proBNP (BNP-Adult 18+) 627 pg/mL (<450); Troponin I < 0.012 ng/mL (0.01-0.034)
[2022-04-26 17:10] LABS: Bacteria Urine None Seen; Culture Indicated Urine Cult Not Indicated; Mucus Urine 1+ (Negative); RBC Urine None Seen (0-5/HPF); Squamous Epithelial Cell Urine 1-5 /HPF (0-5/HPF); WBC Urine None Seen (0-5/HPF)
[2022-04-26 18:31] LABS: Reflexed Lactate in 2 Hours Y
[2022-04-26 18:54] LABS: Lactate 2HR (Lactic Acid Rflx) 2.7 mmol/L (0.7-2.1)
--- NOTE | 2022-04-26 19:15 | PC.NURSE ---
Report received - assumed care of pt at this time
--- NOTE | 2022-04-26 19:30 | PC.NURSE ---
Provider at bedside - 500 ml of NS infusing
--- NOTE | 2022-04-26 19:55 | PC.NURSE ---
Repeat lactate drawn - no touriquet used - labeled at bedside and sent to lab
--- NOTE | 2022-04-26 20:30 | PC.NURSE ---
Provider at bedside - pt to be admitted at this time for elevated lactate
[2022-04-26 20:41] LABS: Lactate (Lactic Acid) 2.7 mmol/L (0.7-2.1)
--- NOTE | 2022-04-26 21:00 | PC.NURSE ---
Resting quietly in NAD - no needs voiced - urinal at bedside for use - left for the evening
--- NOTE | 2022-04-26 21:30 | PC.NURSE ---
No changes in pt status at this time - awaiting admission
--- NOTE | 2022-04-26 22:05 | PC.NURSE ---
Report called to ANAND Alberts - pt to be transferred to [phone]
[2022-04-26 22:19] LABS: Reflexed Lactate in 2 Hours Y
[2022-04-26 23:30] LABS: INR 3.9 (0.9-1.3); Prothrombin Time 45.2 SECONDS (10.1-12.7)
[2022-04-26] MEDS: DEXTROSE 5%-LACTATED RINGERS 1,000 ML 100 ML IV (23:33)
[2022-04-26] MEDS: GABAPENTIN 100 MG CAPSULE 300 MG PO (23:33)
[2022-04-26 23:35] LABS: Lactate 2HR (Lactic Acid Rflx) 1.5 mmol/L (0.7-2.1)
--- NOTE | 2022-04-26 23:57 | P.HP_ITS ---
History of Present Illness History of Present Illness Date Patient Seen: 04/26/22 Date of Onset of Symptoms: 04/26/22 Chief complaint: Wet coughx3 wks, gen. weakness Narrative: 86-year-old male with past medical history coronary artery disease, CKD 3, type 2 diabetes, cardiomyopathy CHF, hypertension, hyperlipidemia brought in by EMS for 1 day of weakness and fatigue.? Patient is accompanied by his , who states that he seemed per his baseline until this morning after breakfast when he was unable to stand up, was not speaking very much.? Patient's waited 2- 3 hours and tried with the same result, following which she called EMS.? In the ED patient appears to have improved, is more alert and answering questions appropriately.? He denies any pain or discomfort at the moment.? Patient states he was just feeling very fatigued and tired this morning.? Denies fever, chills, chest pain, shortness of breath, nausea, vomiting, abdominal pain, dysuria, li ghtheadedness, dizziness, syncope.? He does endorse 3 weeks of a wet cough.? Patient's states that he has been taking his medications as prescribed, she is the 1 that gives it to him.? Patient's states that he was diagnosed with dehydration some time ago, and had the exact similar symptoms that he is having today. Patient did improve a little after giving IV fluids but his lactate repeat still seems to be elevated, admitted for overnight observation and IV hydration Patient History Medical History Bleeding ulcer Chronic anticoagulation Chronic gout Chronic kidney disease (CKD) stage G3a/A1, moderately decreased glomerular filtration rate (GFR) between 45-59 mL/min/1.73 square meter and albuminuria creatinine ratio less than 30 mg/g Diabetes type 2, controlled Heart attack Hyperlipidemia Hypertension Left bundle branch block Presence of combination internal cardiac defibrillator (ICD) and pacemaker Right leg weakness 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 Thyroid nodule Surgical History H/O sinus surgery History of brain surgery History of cholecystectomy S/P CABG x 4 Family & Social History Social History: household members spouse Safety & Behavioral: Feels Safe in Current Yes Environment Been Physically Hurt or No Threatened By a Person Tobacco & Substance use: Smoking Status Never smoker alcohol intake never alcohol intake frequency 0-2 drinks per day Substance Use Type does not use Comment: Patient lives with his . Some dependency on daily activities. Meds Home Medications and Allergies Home Medications Medication Instructions Recorded Confirmed Type fluticasone propionate 50 50 mcg intranasal BID 05/06/18 01/29/22 History mcg/actuation nasal spray,suspension pantoprazole 40 mg tablet,delayed 40 mg PO DAILY 05/06/18 01/29/22 History release tamsulosin 0.4 mg capsule 0.4 mg PO BEDTIME 05/06/18 01/29/22 History acetaminophen 300 mg-codeine 30 mg 1 tab PO Q6H PRN Pain (Scale Score 03/31/20 01/29/22 History tablet 1-3) metformin 500 mg tablet 500 mg PO BEDTIME 05/08/21 01/29/22 History carbamazepine 200 mg tablet 200 mg PO TID 09/07/21 01/29/22 History (Tegretol) furosemide 20 mg tablet 20 mg PO DAILY 09/07/21 01/29/22 History allopurinol 100 mg tablet 100 mg PO DAILY 12/04/21 01/29/22 History amlodipine 5 mg tablet 5 mg PO DAILY 12/04/21 01/29/22 History atorvastatin 80 mg tablet 80 mg PO BEDTIME 12/04/21 01/29/22 History clopidogrel 75 mg tablet (Plavix) 75 mg PO DAILY 12/04/21 01/29/22 History metoprolol succinate 100 mg 100 mg PO BID 12/04/21 01/29/22 History tablet,extended release 24 hr gabapentin 100 mg capsule 300 mg PO BID 01/29/22 01/29/22 History losartan 100 mg tablet 1 tab PO DAILY 01/29/22 01/29/22 History metformin 500 mg tablet 1,000 mg PO QAM 01/29/22 01/29/22 History magnesium 200 mg tablet 400 mg PO DAILY 01/30/22 01/30/22 History nystatin 100,000 unit/mL oral 500,000 unit (5 mL) PO QID #200 mL 01/30/22 Rx suspension warfarin 5 mg tablet 10 mg PO MOWEFRSA@1700 #30 tabs 01/30/22 Rx warfarin 5 mg tablet 15 mg PO SUTUTH@1700 #30 tabs 01/30/22 Rx Allergies Allergy/AdvReac Type Severity Reaction Status Date / Time tolmetin Allergy Severe Anaphylaxis Verified 01/29/22 08:12 Review of Systems Review of Systems Narrative: Other than feeling generalized weakness patient denies any specific symptoms at this time. Exam Vital Signs (past 8 hours): - 04/26/22 16:00 04/26/22 16:30 04/26/22 17:00 Temperature Pulse Rate 60 62 60 Respiratory Rate 21 21 15 Blood Pressure Pulse Oximetry 96 94 94 Oxygen Flow Rate 04/26/22 17:30 04/26/22 18:00 04/26/22 18:30 Temperature Pulse Rate 61 63 64 Respiratory Rate 20 16 15 Blood Pressure Pulse Oximetry 98 97 98 Oxygen Flow Rate 04/26/22 19:00 04/26/22 19:30 04/26/22 19:32 Temperature Pulse Rate 61 64 63 Respiratory Rate 16 20 18 Blood Pressure Pulse Oximetry 96 96 Oxygen Flow Rate 04/26/22 19:33 04/26/22 19:33 04/26/22 20:00 Temperature Pulse Rate 63 64 Respiratory Rate 18 18 Blood Pressure 189/77 H Pulse Oximetry 97 73 L Oxygen Flow Rate 04/26/22 20:01 04/26/22 20:01 04/26/22 20:30 Temperature Pulse Rate 64 61 Respiratory Rate 18 15 Blood Pressure 186/83 H Pulse Oximetry 92 95 Oxygen Flow Rate 04/26/22 20:31 04/26/22 20:31 04/26/22 21:00 Temperature Pulse Rate 61 65 Respiratory Rate 16 24 Blood Pressure 172/77 H Pulse Oximetry 94 87 L Oxygen Flow Rate 04/26/22 21:01 04/26/22 21:01 04/26/22 21:30 Temperature Pulse Rate 62 Respiratory Rate 18 Blood Pressure 127/66 175/81 H Pulse Oximetry 95 Oxygen Flow Rate 04/26/22 21:30 04/26/22 22:00 04/26/22 22:00 Temperature Pulse Rate 62 63 Respiratory Rate 21 15 Blood Pressure 187/79 H Pulse Oximetry 96 94 Oxygen Flow Rate 04/26/22 22:40 Temperature 97.8 F Pulse Rate 60 Respiratory Rate 16 Blood Pressure 196/87 H Pulse Oximetry 96 Oxygen Flow Rate 0 Oxygen Delivery Method Nasal Cannula Oxygen Flow Rate 0 Narrative Exam Narrative: Elderly gentleman, hard of hearing does not have the hearing aids with him, able to follow simple commands. Patient does have generalized weakness and requiring help with sitting up. Pedal edema positive. Systolic murmur noted. Constitutional, HEENT, cardiovascular, respiratory, neuro, skin, psych, examination done, negative other than as mentioned above. Objective Labs Result Diagrams: 04/26/22 16:10 04/26/22 16:10 Labs: Laboratory Results - last 24 hr 04/26/22 04/26/22 04/26/22 15:50 16:10 16:10 WBC 9.3 RBC 3.61 L Hgb 11.2 L Hct 34.0 L MCV 94.3 MCH 31.0 MCHC 32.9 RDW 13.7 Plt Count 200 Neut % (Auto) 81.6 H Lymph % (Auto) 10.2 L [place] % (Auto) 5.7 Eos % (Auto) 1.5 L Baso % (Auto) 1.0 Neut # (Auto) 7600 H Lymph # (Auto) 900 L [place] # (Auto) 500 Eos # (Auto) 100 Baso # (Auto) 100 PT INR Sodium 136 L Potassium 4.5 Chloride 97 L Carbon Dioxide 29 BUN 36 H Creatinine 1.17 Estimated GFR > 60 BUN/Creatinine Ratio 30.8 H Glucose 268 H Lactate Calcium 8.7 Magnesium 1.7 Total Bilirubin 0.4 AST 25 ALT 24 Alkaline Phosphatase 79 Total Creatine Kinase 56 CK-MB (CK-2) TNP CK-MB (CK-2) Rel Index TNP Troponin I < 0.012 NT-Pro-B Natriuret Pep 627 H Total Protein 6.9 Albumin 3.9 Globulin 3.0 Albumin/Globulin Ratio 1.3 Urine RBC Urine WBC Ur Squamous Epith Cells Urine Bacteria Urine Mucus Ur Culture Indicated? SARS-CoV-2 (PCR) Negative 04/26/22 04/26/22 04/26/22 16:10 16:43 18:33 WBC RBC Hgb Hct MCV MCH MCHC RDW Plt Count Neut % (Auto) Lymph % (Auto) [place] % (Auto) Eos % (Auto) Baso % (Auto) Neut # (Auto) Lymph # (Auto) [place] # (Auto) Eos # (Auto) Baso # (Auto) PT INR Sodium Potassium Chloride Carbon Dioxide BUN Creatinine Estimated GFR BUN/Creatinine Ratio Glucose Lactate 2.8 H 2.7 H Calcium Magnesium Total Bilirubin AST ALT Alkaline Phosphatase Total Creatine Kinase CK-MB (CK-2) CK-MB (CK-2) Rel Index Troponin I NT-Pro-B Natriuret Pep Total Protein Albumin Globulin Albumin/Globulin Ratio Urine RBC None seen Urine WBC None seen Ur Squamous Epith Cells 1-5 /hpf Urine Bacteria None seen Urine Mucus 1+ H Ur Culture Indicated? Cult not indicated SARS-CoV-2 (PCR) 04/26/22 04/26/22 04/26/22 19:55 23:16 23:16 WBC RBC Hgb Hct MCV MCH MCHC RDW Plt Count Neut % (Auto) Lymph % (Auto) [place] % (Auto) Eos % (Auto) Baso % (Auto) Neut # (Auto) Lymph # (Auto) [place] # (Auto) Eos # (Auto) Baso # (Auto) PT 45.2 H INR 3.9 H Sodium Potassium Chloride Carbon Dioxide BUN Creatinine Estimated GFR BUN/Creatinine Ratio Glucose Lactate 2.7 H 1.5 Calcium Magnesium Total Bilirubin AST ALT Alkaline Phosphatase Total Creatine Kinase CK-MB (CK-2) CK-MB (CK-2) Rel Index Troponin I NT-Pro-B Natriuret Pep Total Protein Albumin Globulin Albumin/Globulin Ratio Urine RBC Urine WBC Ur Squamous Epith Cells Urine Bacteria Urine Mucus Ur Culture Indicated? SARS-CoV-2 (PCR) Assessment & Plan Assessment and plan (1) Weakness: Status: Acute (2) Elevated lactic acid level: Status: Acute Assessment & Plan narrative: Clinical dehydration and lactic acidosis -probably related to poor oral intake, no apparent signs of sepsis at this time, continue IV fluids, repeat lactic acid in the morning, outpatient follow-up Hypertensive urgency -resume home medications, continue blood pressure monitoring, telemetry It is unclear about the patient's anticoagulation but he has been on warfarin for long time, INR follow-up, appropriate titration of the medication Physical therapy to help with the deconditioning, home physical therapy at the time of the discharge DVT and GI prophylaxis reviewed Other chronic medical conditions seems to be related stable, outpatient follow- up recommended Patient has directives related to his code status looks like a partial code was documented, during my discussion today mentioned about partial code but will bring the advanced directives tomorrow till then requested to document as a full code Care plan extensively discussed with the patient and also at bedside, answered all questions Time Spent With Patient Critical Care time: I spent a total of [] minutes of critical care time on this patient's care today; this time is exclusive of procedural time.
[2022-04-27 00:13] VITALS: BP 187/89; PULSE 60; RESP 16; TEMP 36.1; O2SAT 98
[2022-04-27 05:17] VITALS: BP 189/88; PULSE 60; RESP 16; TEMP 36.5; O2SAT 96
[2022-04-27 06:27] LABS: INR 3.7 (0.9-1.3); Prothrombin Time 42.5 SECONDS (10.1-12.7)
[2022-04-27 06:31] LABS: Lactate (Lactic Acid) 1.5 mmol/L (0.7-2.1)
[2022-04-27 06:33] LABS: Alanine Aminotransferase 23 IU/L (<50); Albumin 3.6 g/dL (3.5-5.0); Albumin Globulin Ratio 1.2 (1.0-2.8); Alkaline Phosphatase 78 U/L (38-126); Aspartate Aminotransferase 22 IU/L (17-59); BUN Creatinine Ratio 25.3 (6-22); Bilirubin Total 0.4 mg/dL (0.2-1.3); Blood Urea Nitrogen 25 mg/dL (9-20); Calcium 8.6 mg/dL (8.4-10.2); Carbon Dioxide 31 mmol/L (22-32); Chloride 101 mmol/L (98-107); Estimated Glomerular Filt Rate > 60 mL/min (>60); Globulin 2.9 g/dL (1.7-4.1); Glucose 176 mg/dL (80-110); HEMOLYSIS < 15 (0-50); Potassium 4.3 mmol/L (3.4-5.1); Sodium 137 mmol/L (137-145); Total Protein 6.5 g/dL (6.3-8.2)
[2022-04-27 06:34] LABS: Add Manual Diff / Slide Review NO; Basophils Absolute Auto 0 /uL (0-100); Basophils Percent Auto 0.3 % (0-2); Eosinophils Absolute Auto 200 /uL (0-450); Eosinophils Percent Auto 2.4 % (2-4); Hematocrit 33.6 % (41-53); Hemoglobin 11.3 g/dL (13.5-17.5); Lymphocytes Absolute Auto 1800 /uL (1100-4500); Lymphocytes Percent Auto 23.5 % (25-40); Mean Corpuscular HGB Conc 33.7 % (30-36); Mean Corpuscular Hemoglobin 31.5 PG (26-34); Mean Corpuscular Volume 93.3 fL (80-100); Monocytes Absolute Auto 700 /uL (0-900); Monocytes Percent Auto 9.1 % (3-14); Neutrophils Absolute Auto 5000 /uL (1500-7000); Neutrophils Percent Auto 64.7 % (50-75); Platelet Count 207 X10^3/uL (150-400); Red Cell Distribution Width 13.6 % (11.6-14.8); White Blood Cell Count 7.7 X10^3/uL (4.5-11.0)
--- NOTE | 2022-04-27 06:47 | PC.NURSE ---
Admit/NOC Shift Note- Patient arrived to room via stretcvher from ER at 2235. Patient with noted weakness, patient requires 2PA to transfer from stretcher to bed. Settled patient in bed, completed blood draw, and started to orient patient to room and bed. Patient fell asleep and began snoring before finished orienting patient. Completed admit as best possible, started IV fluids sent patient medications to pharmacy. Safety measures in place. Bed alarm activated. Call sheppard and phone within reach. will continue to monitor.
[2022-04-27 08:19] VITALS: BP 201/96
[2022-04-27] MEDS: FUROSEMIDE 20 MG TABLET PO (08:19)
[2022-04-27] MEDS: METOPROLOL ER 50 MG TABLET 100 MG PO (08:19)
[2022-04-27] MEDS: GABAPENTIN 100 MG CAPSULE 300 MG PO (08:19)
[2022-04-27] MEDS: AMLODIPINE 5 MG TABLET PO (08:19)
[2022-04-27 08:20] VITALS: BP 201/96
[2022-04-27] MEDS: PANTOPRAZOLE DR 40 MG TABLET PO (08:20)
[2022-04-27] MEDS: LOSARTAN 50 MG TABLET 100 MG PO (08:20)
--- NOTE | 2022-04-27 08:29 | P.DS_ITS ---
History of Present Illness History of Present Illness Date Patient Seen: 04/27/22 Chief complaint: Wet coughx3 wks, gen. weakness Narrative: Per Dr. Castellanos, 86-year-old male with past medical history coronary artery disease, CKD 3, type 2 diabetes, cardiomyopathy CHF, hypertension, hyperlipidemia brought in by EMS for 1 day of weakness and fatigue.? Patient is accompanied by his , who states that he seemed per his baseline until this morning after breakfast when he was unable to stand up, was not speaking very much.? Patient's waited 2- 3 hours and tried with the same result, following which she called EMS.? In the ED patient appears to have improved, is more alert and answering questions appropriately.? He denies any pain or discomfort at the moment.? Patient states he was just feeling very fatigued and tired this morning.? Denies fever, chills, chest pain, shortness of breath, nausea, vomiting, abdominal pain, dysuria, lightheadedness, dizziness, syncope.? He does endorse 3 weeks of a wet cough.? Patient's states that he has been taking his medications as prescribed, she is the 1 that gives it to him.? Patient's states that he was diagnosed with dehydration some time ago, and had the exact similar symptoms that he is having today. Patient did improve a little after giving IV fluids but his lactate repeat still seems to be elevated, admitted for overnight observation and IV hydration Discharge Providers Provider Date of admission: 04/26/22 20:54 Discharge Date: 04/27/22 Discharge provider: Doron Jay DO Summary Hospital Course Discharge Diagnosis: 1. Dehydration 2. Elevated lactate 3. Weakness 4. CAD 5. CKD 3 6. DM2 7. CHFrEF 8. paroxysmal atrial fibrillation on coumadin with supratherapeutic INR. Hospital Course: 86-year-old male with past medical history coronary artery disease, CKD 3, type 2 diabetes, chronic systolic HF (prior EF <30 but most recent 40-45%), hypertension, hyperlipidemia brought in by EMS for 1 day of weakness and fatigue.?He has a history of similar presentations in the past. He was admitted given persistently elevated lactate, though this was probably due to metformin and dehydration. He quickly returned to his baseline after IV fluids and was dis charged home with home health to resume. No infectious etiologies were found. No changes to his usual home medications are recommended at this time. INR was mildly elevated without signs of bleeding, PCP follow up recommended for INR. Exam Vital Signs (past 8 hours): - 04/27/22 05:17 04/27/22 08:19 04/27/22 08:20 Temperature 97.7 F Pulse Rate 60 Respiratory Rate 16 Blood Pressure 189/88 H 201/96 H 201/96 H Pulse Oximetry 96 Oxygen Flow Rate 0 Oxygen Delivery Method Room Air Oxygen Flow Rate 0 Narrative Exam Narrative: Gen: elderly male, no acute distress CV: RRR no m/r/g Pulm: CTA b/l Abd: S NT ND Ext: trace edema b/l LE, no joint effusions Neuro: chronic facial asymmetry, diffuse weakness Objective Labs Result Diagrams: 04/27/22 06:10 04/27/22 06:10 Labs: Laboratory Results - last 24 hr 04/26/22 04/26/22 04/26/22 15:50 16:10 16:10 WBC 9.3 RBC 3.61 L Hgb 11.2 L Hct 34.0 L MCV 94.3 MCH 31.0 MCHC 32.9 RDW 13.7 Plt Count 200 Neut % (Auto) 81.6 H Lymph % (Auto) 10.2 L [place] % (Auto) 5.7 Eos % (Auto) 1.5 L Baso % (Auto) 1.0 Neut # (Auto) 7600 H Lymph # (Auto) 900 L [place] # (Auto) 500 Eos # (Auto) 100 Baso # (Auto) 100 PT INR Sodium 136 L Potassium 4.5 Chloride 97 L Carbon Dioxide 29 BUN 36 H Creatinine 1.17 Estimated GFR > 60 BUN/Creatinine Ratio 30.8 H Glucose 268 H Lactate Calcium 8.7 Magnesium 1.7 Total Bilirubin 0.4 AST 25 ALT 24 Alkaline Phosphatase 79 Total Creatine Kinase 56 CK-MB (CK-2) TNP CK-MB (CK-2) Rel Index TNP Troponin I < 0.012 NT-Pro-B Natriuret Pep 627 H Total Protein 6.9 Albumin 3.9 Globulin 3.0 Albumin/Globulin Ratio 1.3 Urine RBC Urine WBC Ur Squamous Epith Cells Urine Bacteria Urine Mucus Ur Culture Indicated? SARS-CoV-2 (PCR) Negative 04/26/22 04/26/22 04/26/22 16:10 16:43 18:33 WBC RBC Hgb Hct MCV MCH MCHC RDW Plt Count Neut % (Auto) Lymph % (Auto) [place] % (Auto) Eos % (Auto) Baso % (Auto) Neut # (Auto) Lymph # (Auto) [place] # (Auto) Eos # (Auto) Baso # (Auto) PT INR Sodium Potassium Chloride Carbon Dioxide BUN Creatinine Estimated GFR BUN/Creatinine Ratio Glucose Lactate 2.8 H 2.7 H Calcium Magnesium Total Bilirubin AST ALT Alkaline Phosphatase Total Creatine Kinase CK-MB (CK-2) CK-MB (CK-2) Rel Index Troponin I NT-Pro-B Natriuret Pep Total Protein Albumin Globulin Albumin/Globulin Ratio Urine RBC None seen Urine WBC None seen Ur Squamous Epith Cells 1-5 /hpf Urine Bacteria None seen Urine Mucus 1+ H Ur Culture Indicated? Cult not indicated SARS-CoV-2 (PCR) 04/26/22 04/26/22 04/26/22 19:55 23:16 23:16 WBC RBC Hgb Hct MCV MCH MCHC RDW Plt Count Neut % (Auto) Lymph % (Auto) [place] % (Auto) Eos % (Auto) Baso % (Auto) Neut # (Auto) Lymph # (Auto) [place] # (Auto) Eos # (Auto) Baso # (Auto) PT 45.2 H INR 3.9 H Sodium Potassium Chloride Carbon Dioxide BUN Creatinine Estimated GFR BUN/Creatinine Ratio Glucose Lactate 2.7 H 1.5 Calcium Magnesium Total Bilirubin AST ALT Alkaline Phosphatase Total Creatine Kinase CK-MB (CK-2) CK-MB (CK-2) Rel Index Troponin I NT-Pro-B Natriuret Pep Total Protein Albumin Globulin Albumin/Globulin Ratio Urine RBC Urine WBC Ur Squamous Epith Cells Urine Bacteria Urine Mucus Ur Culture Indicated? SARS-CoV-2 (PCR) 04/27/22 04/27/22 04/27/22 06:10 06:10 06:10 WBC 7.7 RBC 3.60 L Hgb 11.3 L Hct 33.6 L MCV 93.3 MCH 31.5 MCHC 33.7 RDW 13.6 Plt Count 207 Neut % (Auto) 64.7 Lymph % (Auto) 23.5 L [place] % (Auto) 9.1 Eos % (Auto) 2.4 Baso % (Auto) 0.3 Neut # (Auto) 5000 Lymph # (Auto) 1800 [place] # (Auto) 700 Eos # (Auto) 200 Baso # (Auto) 0 PT 42.5 H INR 3.7 H Sodium 137 Potassium 4.3 Chloride 101 Carbon Dioxide 31 BUN 25 H Creatinine 0.99 Estimated GFR > 60 BUN/Creatinine Ratio 25.3 H Glucose 176 H Lactate Calcium 8.6 Magnesium Total Bilirubin 0.4 AST 22 ALT 23 Alkaline Phosphatase 78 Total Creatine Kinase CK-MB (CK-2) CK-MB (CK-2) Rel Index Troponin I NT-Pro-B Natriuret Pep Total Protein 6.5 Albumin 3.6 Globulin 2.9 Albumin/Globulin Ratio 1.2 Urine RBC Urine WBC Ur Squamous Epith Cells Urine Bacteria Urine Mucus Ur Culture Indicated? SARS-CoV-2 (PCR) 04/27/22 06:10 WBC RBC Hgb Hct MCV MCH MCHC RDW Plt Count Neut % (Auto) Lymph % (Auto) [place] % (Auto) Eos % (Auto) Baso % (Auto) Neut # (Auto) Lymph # (Auto) [place] # (Auto) Eos # (Auto) Baso # (Auto) PT INR Sodium Potassium Chloride Carbon Dioxide BUN Creatinine Estimated GFR BUN/Creatinine Ratio Glucose Lactate 1.5 Calcium Magnesium Total Bilirubin AST ALT Alkaline Phosphatase Total Creatine Kinase CK-MB (CK-2) CK-MB (CK-2) Rel Index Troponin I NT-Pro-B Natriuret Pep Total Protein Albumin Globulin Albumin/Globulin Ratio Urine RBC Urine WBC Ur Squamous Epith Cells Urine Bacteria Urine Mucus Ur Culture Indicated? SARS-CoV-2 (PCR) [facility] Medical History Bleeding ulcer Chronic anticoagulation Chronic gout Chronic kidney disease (CKD) stage G3a/A1, moderately decreased glomerular filtration rate (GFR) between 45-59 mL/min/1.73 square meter and albuminuria creatinine ratio less than 30 mg/g Diabetes type 2, controlled Heart attack Hyperlipidemia Hypertension Left bundle branch block Presence of combination internal cardiac defibrillator (ICD) and pacemaker Right leg weakness 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 Thyroid nodule Surgical History H/O sinus surgery History of brain surgery History of cholecystectomy S/P CABG x 4 Social History household members: spouse Smoking Status: Never smoker alcohol intake: never Discharge Plan Discharge Plan Patient Disposition: Home Provider Discharge Comment: You were admitted to the hospital with an elevated lactic acid level, this may be from dehydration and your metformin. This level improved after rehydration. Discharge orders & Medications Prescriptions: Continued acetaminophen-codeine 300-30 mg tablet 1 tab PO Q6H PRN (Reason: Pain (Scale Score 1-3)) metformin 500 mg tablet 500 mg PO BEDTIME furosemide 20 mg Tablet 20 mg PO DAILY carbamazepine [Tegretol] 200 mg Tablet 200 mg PO TID fluticasone propionate 50 mcg/actuation spray,suspension 50 mcg Intranasal BID pantoprazole 40 mg tablet,delayed release (DR/EC) 40 mg PO DAILY tamsulosin 0.4 mg capsule 0.4 mg PO BEDTIME atorvastatin 80 mg Tablet 80 mg PO BEDTIME metoprolol succinate 100 mg Tablet Extended Release 24 Hr 100 mg PO BID amlodipine 5 mg Tablet 5 mg PO DAILY allopurinol 100 mg Tablet 100 mg PO DAILY metformin 500 mg tablet 1,000 mg PO QAM losartan 100 mg tablet 1 tab PO DAILY gabapentin 100 mg capsule 300 mg PO BID warfarin 5 mg Tablet 10 mg PO MOWEFRSA@1700 Qty: 30 0RF warfarin 5 mg Tablet 15 mg PO SUTUTH@1700 Qty: 30 0RF nystatin 100,000 unit/mL Suspension 500,000 unit PO QID Qty: 200 0RF magnesium 200 mg Tablet 400 mg PO DAILY Discontinued clopidogrel [Plavix] 75 mg Tablet 75 mg PO DAILY Diet/Activity/Treatments Diet: Diet as Tolerated and Low-sodium Activity: As tolerated Visit Report/Discharge Packet Instructions: DI for Failure to Thrive, DI for Muscle Weakness Discharge Data Primary Care Provider: Trinidad Garcia Attending Provider: Annalisa Castellanos VTE Deep Vein Thrombosis/Pulmonary Embolism Present on Admission: No
--- NOTE | 2022-04-27 09:11 | CM.IDA ---
DCP Assessment Patient is 86 y/o male who was admitted due to concern for elevated lactic acid with hx of stage 3 CKD. Patient has hx of Diabetes type 2, hypertension, hyperlipidemia, CAD, and CHF. Pateint's PCP is Dr. Trinidad Garcia, and patient has [facility] insurance. WEIGHT REDUCING TECHNICIAN enters room to meet with patient. Patient presents as A/Ox3 but [place]. WEIGHT REDUCING TECHNICIAN observes patient sitting up and eating breakfast. Patient endorses he resides at home with his [place]. Patient endorses he uses his FWW daily and that he rarely drives and his drives. Patient endorses family members that reside close to him such as his sons and grandchildren. Patient endorses independence with ADLs. Per EMR, patient has hx of HH referral with [facility] in January 2022. WEIGHT REDUCING TECHNICIAN calls Arthur at [facility] and patient likely does not have current HH services in place but he will check into it further. Patient denies further DCP needs upon d/c and per Hospitalist Dr. Jay, patient is back to baseline and ready for d/c home today. Patient endorses that his spouse [place] will be his ride home. WEIGHT REDUCING TECHNICIAN calls [place] and reports that patient will d/c home today. [place] endorsees that she can be there to pick patient up between 10:30-11:00 am this morning. It is reported that patient has an appt with Dr. Pineda ENT doctor this afternoon and a scheduled ultrasound later today as well. Plan: Patient to d/c to home upon medical clearance via POV with spouse this morning. BERTRAND Puckett Discharge Planning/Care Management CM Discharge Assessment Start: 04/27/22 09:07 Freq: Status: Active Protocol: Document 04/27/22 09:07 CHIKA (Rec: 04/27/22 09:10 [email or web address] [id number]) Discharge Planning Assessment Assigned Director Hedis BERTRAND Puckett Advance Directives? Yes Advance Directives on File No History Provided By Patient,Significant Other, Medical Record Has Patient been admitted in last 30 No days? Prior Living Arrangements House Household Members spouse Type of transporation used prior to Relies on Others admit Comment Patient endorses he rarely drives and his does most of the driving. Independent with ADL's Yes Is patient alert and oriented? Yes Caregiver for Another No DME Already Rented / Owned FWW / Walker Comment Pt stated he inherited his mother in law's 4WW, w/c and electric recliner Discharge Plan Home Transportation Arrangement Spouse POV If patient plan is home with home health unknown : Has signed face to face form been completed? Please Provide Date Initial DC 04/27/22 Assessment Was Performed
[2022-04-27 09:36] VITALS: BP 201/96; PULSE 62; RESP 18; TEMP 36.6; O2SAT 97
== END 2022-04-27 11:30 | disposition home or self-care (01) ==
LOC: ED 20:49 → AC 20:54
PROVIDERS: Admitting Provider Family Medicine; Emergency Provider Student in an Organized Health Care Education/Training Program; PCP Internal Medicine; Visit Provider Family Medicine
DX: E86.0 Dehydration (principal); R53.1 Weakness; E11.9 Type 2 diabetes mellitus without complications; I13.0 Hypertensive heart and chronic kidney disease with heart failure and stage 1 through stage 4 chronic kidney disease, or unspecified chronic kidney disease; I50.22 Chronic systolic (congestive) heart failure; N18.30 Chronic kidney disease, stage 3 unspecified; E11.22 Type 2 diabetes mellitus with diabetic chronic kidney disease; R74.02 Elevation of levels of lactic acid dehydrogenase [LDH]; Z79.84 Long term (current) use of oral hypoglycemic drugs; I25.10 Atherosclerotic heart disease of native coronary artery without angina pectoris; E78.5 Hyperlipidemia, unspecified; Z79.01 Long term (current) use of anticoagulants; Z20.822 Contact with and (suspected) exposure to COVID-19
CPT/HCPCS: 36415; 71046; 80053; 81003; 81015; 82550; 83605; 83735; 83880; 84484; 85025; 85610; 87635; 93005; 93010; 96360; 96361; 99284; C9803; G0378; J7121

== ENCOUNTER → 2022-05-11 10:44 | Outpatient (CLI) | payer OTHER, SELFPAY ==
[2022-01-29 12:57] VITALS: BMI 26.6
[2022-04-26 22:45] VITALS: BMI 20.9
--- NOTE | 2022-05-11 | DI.US.S_ITS ---
PROCEDURE: US RENAL COMPLETE INDICATIONS: Chronic kidney disease, stage 3a TECHNIQUE: Real-time scanning was performed of the kidneys and bladder, with image documentation. COMPARISON: [facility], CT, CT PEL WO CON, 12/03/2021, 22:49. 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 Right kidney measures 14.9 cm in length. No hydronephrosis. No suspicious solid mass lesion. A few small scattered probable cysts. 4 mm calcification in the lower pole the left kidney. Possible calcification associated with a lower pole cyst measuring 0.7 x 0.3 x 0.6 cm. Bladder: Pre-void bladder volume is 117 mL. Post-void residual is not measured as the patient could not void. Bilateral ureteral jets are not noted with color Doppler interrogation. (Of note, ureteral jets may not be detectable in up to 25% of cases due to insufficient differences in specific gravity between ureteral and bladder urine). Prominent prostate gland measuring 4.6 x 4.2 x 4.4 cm. Miscellaneous: No free pelvic fluid. IMPRESSION: 1. Right kidney without evidence for obstruction. A few suspected small renal cysts with nonobstructing calcifications measuring up to 4 mm in size. 2. 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 3. Mildly prominent prostate gland. Dictated by: Randell Isaacs M.D. on 05/11/2022 at 13:46 Approved by: Randell Isaacs M.D. on 05/11/2022 at 13:51
== END ==
PROVIDERS: PCP Internal Medicine; Referring Provider Student in an Organized Health Care Education/Training Program; Visit Provider Student in an Organized Health Care Education/Training Program
DX: N18.31 Chronic kidney disease, stage 3a (principal); Q60.0 Renal agenesis, unilateral; N20.0 Calculus of kidney
CPT/HCPCS: 76770

== ENCOUNTER 2022-07-24 18:35 | Inpatient (IN) | payer OTHER, SELFPAY ==
[2022-04-26 22:45] VITALS: BMI 20.9
[2022-07-24] VITALS (17 sets, daily range): BP systolic 122–171; BP diastolic 62–77; PULSE 60–84; RESP 14–20; TEMP 36.4–38.1; O2SAT 91–100; BMI 24.5
--- NOTE | 2022-07-24 18:36 | ED_ITS ---
HPI - Altered Mental Status General Chief Complaint: Altered Mental Status Stated Complaint: Lethargy, LOC Time Seen by Provider: 07/24/22 18:36 History of Present Illness HPI narrative: 86-year-old male with past medical history coronary artery disease, CKD 3, type 2 diabetes, cardiomyopathy CHF, hypertension, hyperlipidemia brought in by EMS for 1 day of weakness and fatigue. He was reported to have been at his baseline yesterday and comes to us by EMS from a local detention facility with report of altered mental status, lethargy and increased oxygen requirements over the course of the day. There is very little report otherwise, no trauma noted, no change in medications or diet. He is had some wet, harsh sounding cough without obvious sputum production. There is no report of vomiting or diarrhea. Patient is full code Related Data Home Medications Medication Instructions Recorded Confirmed pantoprazole 40 mg tablet,delayed 40 mg PO DAILY 05/06/18 07/24/22 release tamsulosin 0.4 mg capsule 0.4 mg PO QAM 05/06/18 07/24/22 carbamazepine 200 mg tablet 200 mg PO BID 09/07/21 07/24/22 (Tegretol) furosemide 20 mg tablet 20 mg PO DAILY 09/07/21 07/24/22 amlodipine 5 mg tablet 5 mg PO DAILY 12/04/21 07/24/22 atorvastatin 80 mg tablet 80 mg PO BEDTIME 12/04/21 07/24/22 metoprolol succinate 100 mg 50 mg PO QAM 12/04/21 07/24/22 tablet,extended release 24 hr gabapentin 100 mg capsule 300 mg PO QPM 01/29/22 07/24/22 losartan 100 mg tablet 50 mg PO DAILY 01/29/22 07/24/22 amiodarone 200 mg tablet 200 mg PO QAM 07/24/22 07/24/22 insulin glargine 100 unit/mL (3 12 unit SUBCUT QPM 07/24/22 07/24/22 mL) subcutaneous pen (Lantus Solostar U-100 Insulin) spironolactone 25 mg tablet 12.5 mg PO QAM 07/24/22 07/24/22 Previous Rx's Medication Instructions Recorded warfarin 5 mg tablet 10 mg PO MOWEFRSA@1700 #30 tabs 01/30/22 warfarin 5 mg tablet 15 mg PO SUTUTH@1700 #30 tabs 01/30/22 Allergies Allergy/AdvReac Type Severity Reaction Status Date / Time tolmetin Allergy Severe Anaphylaxis Verified 01/29/22 08:12 Review of Systems Review of Systems ROS Unobtainable: Unobtainable due to mental status/LOC Patient History Medical History Bleeding ulcer Chronic anticoagulation Chronic gout Chronic kidney disease (CKD) stage G3a/A1, moderately decreased glomerular filtration rate (GFR) between 45-59 mL/min/1.73 square meter and albuminuria creatinine ratio less than 30 mg/g Diabetes type 2, controlled Heart attack Hyperlipidemia Hypertension Left bundle branch block Presence of combination internal cardiac defibrillator (ICD) and pacemaker Right leg weakness 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 Thyroid nodule Surgical History H/O sinus surgery History of brain surgery History of cholecystectomy S/P CABG x 4 Social History household members: spouse and children Smoking Status: Never smoker alcohol intake: never Smoking Status: Never smoker alcohol intake frequency: 0-2 drinks per day Substance Use Type: does not use Exam Narrative Exam Narrative: GENERAL: [87] year old patient appears stated age. Ill-appearing, lethargic, GCS 13 (nonverbal) HEAD: Atraumatic. Normocephalic. EYES: Pupils equal round and reactive. Extraocular motions intact. No scleral icterus. No injection or drainage. ENT: Nose without bleeding, purulent drainage. Throat without erythema, tonsillar hypertrophy or exudate. Airway patent. NECK: Trachea midline. Non tender CARDIOVASCULAR: Regular rate and rhythm without murmurs, gallops, or rubs. RESPIRATORY: Increased work of breathing, wet lung sounds throughout, harsh sounding rhonchorous cough noted, non-rebreather in place GASTROINTESTINAL: Abdomen soft, non-tender, nondistended. EXTREMITIES: No edema or joint tenderness. BACK: Nontender without deformity or crepitance. No flank tenderness. NEURO: Cranial nerves 2-12 grossly intact SKIN: No rash or erythema of visible areas Initial Vital Signs Initial Vital Signs: Vital Signs Temperature 97.7 F 07/24/22 18:35 Pulse Rate 81 07/24/22 18:35 Respiratory Rate 16 07/24/22 18:35 Blood Pressure 161/77 H 07/24/22 18:35 Pulse Oximetry 91 07/24/22 18:35 Oxygen Delivery Method 07/24/22 18:35 Oxygen Flow Rate 10 07/24/22 18:35 Procedures Central Line Placement Right IJ: Time Out Performed: Yes Patient Placed on Monitor/Pulse Ox: Yes MD Prep: mask, gown and gloves Central Line Prep: Chlorhexidine scrub and sterile drapes applied Local Anesthetic: lidocaine 1% Amount of anesthesia used (mL): 3 Ultrasound Used for Placement: Yes Central Line Lumen Inserted: triple Post Procedure: good blood return and sterile dressing applied Post Procedure X-Ray: tip of catheter in good position and no pneumothorax seen Patient Tolerated Procedure: Well Complications: none Course Orders Ordered: ED Orders 07/24/22 18:37 Chest [XR chest 1V] Stat Arterial Blood Gas Stat EKG-12 Lead Stat 07/24/22 18:39 CT head/brain wo con Stat 07/24/22 19:30 Covid-19 + FLU A/B + RSV - PCR Stat 07/24/22 19:35 Urinalysis and Microscopic Stat 07/24/22 19:38 Complete Blood Count AUTO DIFF Stat Comprehensive Metabolic Panel Stat Lactate (Lactic Acid) Stat Lipase Stat Magnesium Stat NT-proBNP (BNP-Adult 18+) Stat Partial Thromboplastin Time Stat Procalcitonin Stat Prothrombin Time INR Stat Troponin & CK Cardiac Panel Stat 07/24/22 19:50 Blood Culture Stat Acetaminophen (Acetaminophen 325 Mg Tablet) 650 mg PO Q6H PRN PRN Reason: Fever/Mild Pain (1-3) Acetaminophen/Codeine Phosphate (Codeine/Acetaminophen 30/300 Tablet) 1 tab PO Q6H PRN PRN Reason: Pain, Moderate (4-6) Amiodarone HCl (Amiodarone 200 Mg Tablet) 200 mg PO DAILY [facility] Amlodipine Besylate (Amlodipine 5 Mg Tablet) 5 mg PO DAILY [facility] Atorvastatin Calcium (Atorvastatin 20 Mg Tablet) 80 mg PO BEDTIME [facility] Last Admin: 07/24/22 23:42 Dose: Not Given Documented By: AM Carbamazepine (Carbamazepine 200 Mg Tablet) 200 mg PO DAILY [facility] Dextrose (Dextrose 50 % In Water 25 Gm/50 Ml Syringe) 25 gm IV PRN PRN PRN Reason: Hypoglycemia Gabapentin (Gabapentin 400 Mg Capsule) 300 mg PO BEDTIME [facility] Last Admin: 07/24/22 23:42 Dose: Not Given Documented By: AM Sodium Chloride (Normal Saline 0.9%) 1,000 mls @ 75 mls/hr IV CONT ANDREI Stop: 07/25/22 10:04 Last Admin: 07/24/22 22:02 Dose: 75 mls/hr Documented By: AM Cefepime HCl 1 gm/ Sodium (Chloride) 100 mls @ 200 mls/hr IV Q12H ANDREI Azithromycin 500 mg/ Dextrose 250 mls @ 250 mls/hr IV Q24H ANDREI Insulin Glargine (Insulin Glargine 100 Unit/Ml 3ml Pen) 5 unit SUBCUT 2100 ANDREI Last Admin: 07/24/22 22:12 Dose: 5 unit Documented By: FANNY Co-signed By: AM Insulin Glargine (Insulin Glargine 100 Unit/Ml 3ml Pen) 5 unit SUBCUT 0800 [facility] Insulin Human Lispro (Insulin Lispro 100 Unit/Ml 3ml Vial) 0 unit SUBCUT ACHS ANDREI; Protocol Last Admin: 07/24/22 22:11 Dose: 2 unit Documented By: FANNY Co-signed By: AM Losartan Potassium (Losartan 50 Mg Tablet) 50 mg PO DAILY [facility] Metoprolol Succinate (Metoprolol Er 50 Mg Tablet) 50 mg PO DAILY [facility] Naloxone HCl (Naloxone 0.4 Mg/Ml Vial) 0.2 mg IV Q2MIN PRN PRN Reason: Opiate Reversal Pantoprazole Sodium (Pantoprazole Dr 40 Mg Tablet) 40 mg PO 0700 [facility] Tamsulosin HCl (Tamsulosin 0.4 Mg Capsule) 0.4 mg PO DAILY [facility] Discontinued Medications Azithromycin 500 mg/ Dextrose 250 mls @ 250 mls/hr IV NOW ONE Stop: 07/24/22 20:05 Last Admin: 07/24/22 20:41 Dose: 250 mls/hr Documented By: GC Cefepime HCl 2 gm/ Sodium (Chloride) 100 mls @ 200 mls/hr IV NOW ONE Stop: 07/24/22 20:05 Last Infusion: 07/24/22 21:15 Dose: 0 mls/hr Documented By: Admin: 07/24/22 20:42 Dose: 200 mls/hr Documented By: GC Sodium Chloride (Normal Saline 0.9%) 1,000 mls @ 1,000 mls/hr IV BOLUS ONE Stop: 07/24/22 21:14 Last Admin: 07/24/22 20:44 Dose: 1,000 mls/hr Documented By: MICHELLE Ketorolac Tromethamine (Ketorolac 30 Mg/Ml Vial) 10 mg IV NOW ONE Stop: 07/24/22 20:16 Last Admin: 07/24/22 20:40 Dose: 10 mg Documented By: MICHELLE Warfarin Sodium (Warfarin 5 Mg Tablet) 10 mg PO NOW ONE Stop: 07/24/22 22:33 Last Admin: 07/24/22 23:42 Dose: Not Given Documented By: AM Reevaluation(s) Reevaluation #1: patient moved to Trauma 2 in prep for TLC, RT to place on HFNC Reevaluation #2: patient showing improvement at this time, work of breathing improved. Good color and perfusion. Stable vitals. Improved mental status. upwards of 700mL in christensen since it was plaaced Vital Signs Vital signs: Vital Signs - 8 hr 07/24/22 19:12 07/24/22 19:12 07/24/22 19:30 Temperature Pulse Rate 84 Respiratory Rate 14 Blood Pressure 152/72 H 146/69 H Pulse Oximetry 07/24/22 19:30 07/24/22 19:40 07/24/22 19:40 Temperature 100.2 F H 100.2 F H Pulse Rate 78 80 Respiratory Rate 20 17 Blood Pressure 141/63 H Pulse Oximetry 99 96 07/24/22 19:52 07/24/22 19:52 07/24/22 20:00 Temperature 100.4 F H Pulse Rate 60 Respiratory Rate 19 Blood Pressure 161/68 H 165/71 H Pulse Oximetry 98 07/24/22 20:00 07/24/22 20:04 07/24/22 20:04 Temperature 100.2 F H Pulse Rate 82 81 Respiratory Rate 18 Blood Pressure 171/74 H Pulse Oximetry 98 97 07/24/22 20:10 07/24/22 20:10 07/24/22 20:20 Temperature 100.4 F H 100.6 F H Pulse Rate 80 79 Respiratory Rate 18 18 Blood Pressure 151/65 H Pulse Oximetry 97 99 07/24/22 20:20 Temperature Pulse Rate Respiratory Rate Blood Pressure 131/64 Pulse Oximetry MDM - Altered Mental Status Lab Data Result diagrams: 07/24/22 19:38 07/24/22 19:38 Labs: Lab Results 07/24/22 07/24/22 07/24/22 Range/Units 18:55 19:30 19:35 WBC (4.5-11.0) X10^3/uL RBC (4.5-5.9) X10^6/uL Hgb (13.5-17.5) g/dL Hct (41-53) % MCV (80-100) fL MCH (26-34) PG MCHC (30-36) % RDW (11.6-14.8) % Plt Count (150-400) X10^3/uL Neut % (Auto) (50-75) % Lymph % (Auto) (25-40) % Jones % (Auto) (3-14) % Eos % (Auto) (2-4) % Baso % (Auto) (0-2) % Neut # (Auto) (6650-9846) /uL Lymph # (Auto) (2893-1185) /uL Jones # (Auto) (0-900) /uL Eos # (Auto) (0-450) /uL Baso # (Auto) (0-100) /uL PT (10.1-12.7) SECONDS INR (0.9-1.3) APTT (26-36) SECONDS ABG pH 7.46 H (7.35-7.45) ABG pCO2 43.2 (35-45) mmHg ABG pO2 60 L (80-100) mmHg ABG HCO3 30 H (22-26) mmol/L ABG Total CO2 32 H (21-31) mmol/L ABG O2 Saturation 92 L (95-100) % ABG Base Excess 7.0 H (-2-2) mmol/L FiO2 100 Sodium (137-145) mmol/L Potassium (3.4-5.1) mmol/L Chloride (98-107) mmol/L Carbon Dioxide (22-32) mmol/L BUN (9-20) mg/dL Creatinine (0.66-1.25) mg/dL Estimated GFR (>60) mL/min BUN/Creatinine Ratio (6-22) Glucose (80-110) mg/dL Hemoglobin A1c (4.0-6.0) % Lactate (0.7-2.1) mmol/L Calcium (8.4-10.2) mg/dL Magnesium (1.6-2.3) mg/dL Total Bilirubin (0.2-1.3) mg/dL AST (17-59) IU/L ALT (<50) IU/L Alkaline Phosphatase (38-126) U/L Total Creatine Kinase (55-170) U/L CK-MB (CK-2) (<2.37) ng/mL CK-MB (CK-2) Rel Index (1.5-5.0) % Troponin I (0.01-0.034) ng/mL NT-Pro-B Natriuret Pep (<450) pg/mL Total Protein (6.3-8.2) g/dL Albumin (3.5-5.0) g/dL Globulin (1.7-4.1) g/dL Albumin/Globulin Ratio (1.0-2.8) Lipase (23-300) U/L Procalcitonin (<0.5) ng/mL Urine Color Yellow Urine Appearance Clear Urine pH 5.0 (4.5-8.0) Ur Specific [place] 1.015 (1.000-1.035) Urine Protein Trace H (Negative) Urine Glucose (UA) Negative (Negative) g/dL Urine Ketones Negative (NEGATIVE) Urine Occult Blood Trace-intact (Negative) Urine Nitrate Negative (Negative) Urine Bilirubin Negative (NEGATIVE) Urine Urobilinogen 0.2 (0.2) E.U./dL Ur Leukocyte Esterase Negative (NEGATIVE) Urine RBC 5-10/hpf H (0-5/HPF) Urine WBC None seen (0-5/HPF) Ur Squamous Epith Cells None seen (0-5/HPF) Urine Bacteria None seen (None) Ur Culture Indicated? Cult not indicated SARS-CoV-2 (PCR) Negative (Negative) Influenza A (RT-PCR) Flu a negative (NEGATIVE) Influenza B (RT-PCR) Flu b negative (NEGATIVE) RSV (PCR) Negative (Negative) 07/24/22 07/24/22 07/24/22 Range/Units 19:38 19:38 19:38 WBC 13.1 H (4.5-11.0) X10^3/uL RBC 3.70 L (4.5-5.9) X10^6/uL Hgb 11.5 L (13.5-17.5) g/dL Hct 34.7 L (41-53) % MCV 93.8 (80-100) fL MCH 31.0 (26-34) PG MCHC 33.0 (30-36) % RDW 13.7 (11.6-14.8) % Plt Count 313 (150-400) X10^3/uL Neut % (Auto) 81.4 H (50-75) % Lymph % (Auto) 7.0 L (25-40) % Jones % (Auto) 10.7 (3-14) % Eos % (Auto) 0.4 L (2-4) % Baso % (Auto) 0.5 (0-2) % Neut # (Auto) 17563 H (8355-9804) /uL Lymph # (Auto) 900 L (5319-1194) /uL Jones # (Auto) 1400 H (0-900) /uL Eos # (Auto) 100 (0-450) /uL Baso # (Auto) 100 (0-100) /uL PT 20.0 H (10.1-12.7) SECONDS INR 1.7 H (0.9-1.3) APTT 29 (26-36) SECONDS ABG pH (7.35-7.45) ABG pCO2 (35-45) mmHg ABG pO2 (80-100) mmHg ABG HCO3 (22-26) mmol/L ABG Total CO2 (21-31) mmol/L ABG O2 Saturation (95-100) % ABG Base Excess (-2-2) mmol/L FiO2 Sodium (137-145) mmol/L Potassium (3.4-5.1) mmol/L Chloride (98-107) mmol/L Carbon Dioxide (22-32) mmol/L BUN (9-20) mg/dL Creatinine (0.66-1.25) mg/dL Estimated GFR (>60) mL/min BUN/Creatinine Ratio (6-22) Glucose (80-110) mg/dL Hemoglobin A1c (4.0-6.0) % Lactate (0.7-2.1) mmol/L Calcium (8.4-10.2) mg/dL Magnesium (1.6-2.3) mg/dL Total Bilirubin (0.2-1.3) mg/dL AST (17-59) IU/L ALT (<50) IU/L Alkaline Phosphatase (38-126) U/L Total Creatine Kinase (55-170) U/L CK-MB (CK-2) (<2.37) ng/mL CK-MB (CK-2) Rel Index (1.5-5.0) % Troponin I (0.01-0.034) ng/mL NT-Pro-B Natriuret Pep (<450) pg/mL Total Protein (6.3-8.2) g/dL Albumin (3.5-5.0) g/dL Globulin (1.7-4.1) g/dL Albumin/Globulin Ratio (1.0-2.8) Lipase (23-300) U/L Procalcitonin 0.09 (<0.5) ng/mL Urine Color Urine Appearance Urine pH (4.5-8.0) Ur Specific [place] (1.000-1.035) Urine Protein (Negative) Urine Glucose (UA) (Negative) g/dL Urine Ketones (NEGATIVE) Urine Occult Blood (Negative) Urine Nitrate (Negative) Urine Bilirubin (NEGATIVE) Urine Urobilinogen (0.2) E.U./dL Ur Leukocyte Esterase (NEGATIVE) Urine RBC (0-5/HPF) Urine WBC (0-5/HPF) Ur Squamous Epith Cells (0-5/HPF) Urine Bacteria (None) Ur Culture Indicated? SARS-CoV-2 (PCR) (Negative) Influenza A (RT-PCR) (NEGATIVE) Influenza B (RT-PCR) (NEGATIVE) RSV (PCR) (Negative) 07/24/22 07/24/22 07/24/22 Range/Units 19:38 19:38 19:38 WBC (4.5-11.0) X10^3/uL RBC (4.5-5.9) X10^6/uL Hgb (13.5-17.5) g/dL Hct (41-53) % MCV (80-100) fL MCH (26-34) PG MCHC (30-36) % RDW (11.6-14.8) % Plt Count (150-400) X10^3/uL Neut % (Auto) (50-75) % Lymph % (Auto) (25-40) % Jones % (Auto) (3-14) % Eos % (Auto) (2-4) % Baso % (Auto) (0-2) % Neut # (Auto) (4778-2572) /uL Lymph # (Auto) (0141-7563) /uL Jones # (Auto) (0-900) /uL Eos # (Auto) (0-450) /uL Baso # (Auto) (0-100) /uL PT (10.1-12.7) SECONDS INR (0.9-1.3) APTT (26-36) SECONDS ABG pH (7.35-7.45) ABG pCO2 (35-45) mmHg ABG pO2 (80-100) mmHg ABG HCO3 (22-26) mmol/L ABG Total CO2 (21-31) mmol/L ABG O2 Saturation (95-100) % ABG Base Excess (-2-2) mmol/L FiO2 Sodium 143 (137-145) mmol/L Potassium 4.6 (3.4-5.1) mmol/L Chloride 99 (98-107) mmol/L Carbon Dioxide 32 (22-32) mmol/L BUN 50 H (9-20) mg/dL Creatinine 1.75 H (0.66-1.25) mg/dL Estimated GFR 38 L (>60) mL/min BUN/Creatinine Ratio 28.6 H (6-22) Glucose 208 H (80-110) mg/dL Hemoglobin A1c 8.0 H (4.0-6.0) % Lactate 1.6 (0.7-2.1) mmol/L Calcium 9.2 (8.4-10.2) mg/dL Magnesium 1.6 (1.6-2.3) mg/dL Total Bilirubin 0.6 (0.2-1.3) mg/dL AST 38 (17-59) IU/L ALT 39 (<50) IU/L Alkaline Phosphatase 106 (38-126) U/L Total Creatine Kinase 273 H (55-170) U/L CK-MB (CK-2) 0.58 (<2.37) ng/mL CK-MB (CK-2) Rel Index 0.2 L (1.5-5.0) % Troponin I < 0.012 (0.01-0.034) ng/mL NT-Pro-B Natriuret Pep 486 H (<450) pg/mL Total Protein 7.7 (6.3-8.2) g/dL Albumin 3.9 (3.5-5.0) g/dL Globulin 3.8 (1.7-4.1) g/dL Albumin/Globulin Ratio 1.0 (1.0-2.8) Lipase 46 (23-300) U/L Procalcitonin (<0.5) ng/mL Urine Color Urine Appearance Urine pH (4.5-8.0) Ur Specific [place] (1.000-1.035) Urine Protein (Negative) Urine Glucose (UA) (Negative) g/dL Urine Ketones (NEGATIVE) Urine Occult Blood (Negative) Urine Nitrate (Negative) Urine Bilirubin (NEGATIVE) Urine Urobilinogen (0.2) E.U./dL Ur Leukocyte Esterase (NEGATIVE) Urine RBC (0-5/HPF) Urine WBC (0-5/HPF) Ur Squamous Epith Cells (0-5/HPF) Urine Bacteria (None) Ur Culture Indicated? SARS-CoV-2 (PCR) (Negative) Influenza A (RT-PCR) (NEGATIVE) Influenza B (RT-PCR) (NEGATIVE) RSV (PCR) (Negative) Imaging Data Chest x-ray: Attestation: I personally reviewed and interpreted this imaging study as follows: My Impression: possible LLL infiltrate. No PTX, central line in satisfactory position MDM Narrative Medical decision making narrative: [87-year-old male with extensive medical history including hypertension, hyperlipidemia, chronic anticoagulation with AICD and pacemaker in place, chronic kidney disease presents with altered mental status and increased oxygen demands with fever. He is full code] Multiple etiologies for patient's symptoms considered including, but not limited to: [Sepsis from various sources including possible nosocomial pneumonia, urine versus other] Prior Charts reviewed: Including prior ED visits and hospitalizations at our facility, we are beginning to receive chart from a recent hospitalization at [facility] Labs reviewed and interpreted by myself: Elevated white blood cell count consistent with presumed infectious source. H&H stable. Significant bump in creatinine suggestive of acute kidney injury, likely infectious versus dehydration. Lactate within normal, troponin negative and slight elevation in BNP. Procalcitonin still pending at time of admission Imaging reviewed: Chest x-ray with possible left lower lobe infiltrate and central line in satisfactory position, no pneumothorax Consultations: Hospitalist happy to accept Patient's symptoms improved over duration of stay with above-stated therapies. Improved work of breathing, patient with over 700 mL of urine out in [place], antibiotics ordered to cover nosocomial pneumonia Findings and admission diagnosis discussed with patient/family followed by verbalization of understanding Discharge Plan Departure Patient Disposition: Admitted As Inpatient Clinical Impression: Pneumonia, Acute hypoxemic respiratory failure, Encephalopathy acute Admit Date/Time: 07/24/22 20:28 Admit Provider: Vanessa Pham
--- NOTE | 2022-07-24 18:37 | DI.RAD.S_ITS ---
PROCEDURE: XR CHEST 1V INDICATIONS: altered, hypoxemic TECHNIQUE: One view of the chest was acquired. COMPARISON: [facility], CR, XR CHEST 1 VIEW, 07/17/2022, 9:46. [facility], CR, XR CHEST 2V, 04/26/2022, 15:26. [facility], CR, XR CHEST 2V, 12/09/2021, 13:47. FINDINGS: Surgical changes and devices: Left chest AICD. Median sternotomy wires. Tip of the right internal jugular central venous catheter projects near the superior cavoatrial junction. Lungs and pleura: Lung volumes are low. Patchy/consolidative left basilar opacity present. No large pleural effusion. No pneumothorax. Mediastinum: Cardiac silhouette is at the upper limit of normal in size, could be accentuated by low lung volumes. Bones and chest wall: No suspicious bony lesions. Overlying soft tissues appear unremarkable. IMPRESSION: Low lung volumes with patchy/consolidative left basilar opacity indeterminate for aspiration, pneumonia, or atelectasis. Dictated by: Kelechi Reeves M.D. on 07/24/2022 at 20:10 Approved by: Kelechi Reeves M.D. on 07/24/2022 at 20:13
--- NOTE | 2022-07-24 18:39 | DI.CT.S_ITS ---
PROCEDURE: CT HEAD/BRAIN WO CON INDICATIONS: altered TECHNIQUE: Noncontrast 4.5 mm thick angled axial sections acquired from the foramen magnum to the vertex, with coronal and sagittal reformats. For radiation dose reduction, the following was used: automated exposure control, adjustment of mA and/or kV according to patient size. COMPARISON: [facility], CT, CT HEAD/BRAIN WO CON, 01/29/2022, 7:04. FINDINGS: Image quality: Excellent. CSF spaces: Basal cisterns are patent. No extra-axial fluid collections. There is moderate cerebral volume loss, with resultant ventricular and sulcal prominence. Brain: No intracranial hemorrhage, mass, or mass effect. There are subcortical, periventricular and deep white matter hypodensities consistent with moderate chronic small vessel ischemic changes. There is mild encephalomalacia in the left cerebellar hemisphere redemonstrated. The liz-white matter junction appears preserved. There is intracranial internal carotid artery atherosclerosis. Skull and face: Calvarium and visualized facial bones appear intact, without suspicious lesions. Sinuses: Visualized sinuses demonstrate postsurgical changes from prior sinus surgery. There is mucosal thickening within the frontal, ethmoid, maxillary, and sphenoid sinuses. There are associated air-fluid levels suggestive of acute sinusitis. Mastoid air cells are clear. IMPRESSION: 1. No acute intracranial abnormality. 2. Moderate cerebral volume loss and chronic white matter small vessel ischemic changes. Mild encephalomalacia also redemonstrated in the left cerebellar hemisphere. 3. Extensive sinus mucosal disease with air-fluid levels suggestive of acute sinusitis. Dictated by: Erick Garcia M.D. on 07/24/2022 at 20:09 Approved by: Erick Garcia M.D. on 07/24/2022 at 20:12
--- NOTE | 2022-07-24 19:00 | PC.NURSE ---
multiple attempts unable to obtain labs, warehouse inventory clerk did get minimal blood for arterial blood gas and i obtained minimal blood in 1 set of blood cx. pt remains unresponsive, not trying to answer questions, slightly withdraw or localize to pain, requires nrb to maintain oxygen sats 91-94% wet cough noted x1, eyes open spontaneously but not tracking. pt from [employer] and is a full code.
--- NOTE | 2022-07-24 19:26 | PC.NURSE ---
Central line placed 1925 by physician Salma Schulte. Pt arrives altered LOC, EMS states he's been this way all day per facility. Pt arrives non-rebreather 15L, responds to pain. Pt moved to room 2 for central line.
[2022-07-24 19:43] LABS: Appearance Urine UA CLEAR; Bilirubin Urine UA NEGATIVE (NEGATIVE); Color Urine UA YELLOW; Glucose Urine UA NEGATIVE (Negative); Ketones Urine UA NEGATIVE (NEGATIVE); Leukocyte Esterase Urine UA NEGATIVE (NEGATIVE); Nitrite Urine UA NEGATIVE (Negative); Occult Blood Urine UA TRACE-INTACT (Negative); Protein Urine UA TRACE (Negative); Specific Gravity Urine UA 1.015 (1.000-1.035); Urobilinogen Urine UA 0.2 E.U./dL (0.2)
[2022-07-24 19:58] LABS: Add Manual Diff / Slide Review NO; Basophils Absolute Auto 100 /uL (0-100); Basophils Percent Auto 0.5 % (0-2); Eosinophils Absolute Auto 100 /uL (0-450); Eosinophils Percent Auto 0.4 % (2-4); Hematocrit 34.7 % (41-53); Hemoglobin 11.5 g/dL (13.5-17.5); Lymphocytes Absolute Auto 900 /uL (1100-4500); Mean Corpuscular Volume 93.8 fL (80-100); Monocytes Absolute Auto 1400 /uL (0-900); Monocytes Percent Auto 10.7 % (3-14); Neutrophils Absolute Auto 10700 /uL (1500-7000); Neutrophils Percent Auto 81.4 % (50-75); Platelet Count 313 X10^3/uL (150-400); Red Cell Distribution Width 13.7 % (11.6-14.8); White Blood Cell Count 13.1 X10^3/uL (4.5-11.0)
[2022-07-24 20:01] LABS: Bacteria Urine None Seen; Culture Indicated Urine Cult Not Indicated; RBC Urine 5-10/HPF (0-5/HPF); Squamous Epithelial Cell Urine None Seen (0-5/HPF); WBC Urine None Seen (0-5/HPF)
[2022-07-24 20:05] LABS: INR 1.7 (0.9-1.3)
[2022-07-24 20:08] LABS: PTT Partial Thromboplastin Tim 29 SECONDS (26-36)
[2022-07-24 20:10] LABS: Alanine Aminotransferase 39 IU/L (<50); Albumin 3.9 g/dL (3.5-5.0); Alkaline Phosphatase 106 U/L (38-126); Aspartate Aminotransferase 38 IU/L (17-59); BUN Creatinine Ratio 28.6 (6-22); Bilirubin Total 0.6 mg/dL (0.2-1.3); Blood Urea Nitrogen 50 mg/dL (9-20); Calcium 9.2 mg/dL (8.4-10.2); Carbon Dioxide 32 mmol/L (22-32); Chloride 99 mmol/L (98-107); Creatine Kinase 273 U/L (55-170); Estimated Glomerular Filt Rate 38 mL/min (>60); Globulin 3.8 g/dL (1.7-4.1); Glucose 208 mg/dL (80-110); HEMOLYSIS < 15 (0-50); Lipase 46 U/L (23-300); Magnesium 1.6 mg/dL (1.6-2.3); Potassium 4.6 mmol/L (3.4-5.1); Sodium 143 mmol/L (137-145); Total Protein 7.7 g/dL (6.3-8.2)
[2022-07-24 20:11] LABS: Lactate (Lactic Acid) 1.6 mmol/L (0.7-2.1)
[2022-07-24 20:18] LABS: Influenza A - CEPHEID Flu A NEGATIVE (NEGATIVE); Influenza B - CEPHEID Flu B NEGATIVE (NEGATIVE); Respiratory Syncytial Virus Negative (Negative)
[2022-07-24 20:22] LABS: NT-proBNP (BNP-Adult 18+) 486 pg/mL (<450); Troponin I < 0.012 ng/mL (0.01-0.034)
[2022-07-24 20:25] LABS: CKMB % Relative Index 0.2 % (1.5-5.0); Creatine Kinase MB 0.58 ng/mL (<2.37)
[2022-07-24 20:26] LABS: COVID-19 CEPHEID 4-PLEX PCR Negative (Negative)
[2022-07-24 20:36] LABS: Procalcitonin 0.09 ng/mL (<0.5)
[2022-07-24] MEDS: KETOROLAC 30 MG/ML VIAL 10 MG IV (20:40)
[2022-07-24] MEDS: AZITHROMYCIN 500 MG in DEXTROSE 5% IN WATER 250 ML 250 MG IV (20:41)
[2022-07-24] MEDS: CEFEPIME 2 GM in SODIUM CHLORIDE 0.9% 100 ML IV (20:42)
[2022-07-24] MEDS: SODIUM CHLORIDE 0.9% 1,000 ML 1000 ML IV (20:44)
[2022-07-24 21:05] LABS: Fractionated Inspired Oxygen 100; HCO3 ABG 30 mmol/L (22-26); Oxygen Saturation ABG 92 % (95-100); PCO2 ABG 43.2 mmHg (35-45); PO2 ABG 60 mmHg (80-100); TCO2 ABG 32 mmol/L (21-31); pH ABG 7.46 (7.35-7.45)
[2022-07-24] MEDS: SODIUM CHLORIDE 0.9% 1,000 ML 75 ML IV (22:02)
[2022-07-24] MEDS: INSULIN LISPRO 100 UNIT/ML 3ML VIAL SUBCUT (22:11)
[2022-07-24] MEDS: INSULIN GLARGINE 100 UNIT/ML 3ML PEN SUBCUT (22:12)
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
--- NOTE | 2022-07-24 23:45 | PC.NURSE ---
Pt arrived from ED via stretcher and nrb. RT placed heated hiflow on, sating in high 90s. Pt unable to answer questions, sometimes mumbles unintelligable words back, opens eyes momentarily after sternal rub. Pt able to take 1 small sip of water but eyes closed and not answering questions, no PO meds given d/t altered mental status. Patient in view room.
[2022-07-25] VITALS (8 sets, daily range): BP systolic 104–149; BP diastolic 57–77; PULSE 69–75; RESP 16–20; TEMP 35.9–36.7; O2SAT 96–100
[2022-07-25] MEDS: CEFEPIME 1 GM in SODIUM CHLORIDE 0.9% 100 ML IV ×2 (04:53→17:17)
[2022-07-25 05:34] LABS: Add Manual Diff / Slide Review NO; Basophils Absolute Auto 0 /uL (0-100); Basophils Percent Auto 0.2 % (0-2); Eosinophils Absolute Auto 0 /uL (0-450); Eosinophils Percent Auto 0.2 % (2-4); Hematocrit 32.2 % (41-53); Hemoglobin 10.3 g/dL (13.5-17.5); Lymphocytes Absolute Auto 1100 /uL (1100-4500); Lymphocytes Percent Auto 7.7 % (25-40); Mean Corpuscular HGB Conc 31.9 % (30-36); Mean Corpuscular Hemoglobin 30.3 PG (26-34); Mean Corpuscular Volume 94.7 fL (80-100); Monocytes Absolute Auto 1500 /uL (0-900); Monocytes Percent Auto 10.1 % (3-14); Neutrophils Absolute Auto 12000 /uL (1500-7000); Neutrophils Percent Auto 81.8 % (50-75); Platelet Count 296 X10^3/uL (150-400); Red Cell Distribution Width 13.6 % (11.6-14.8); White Blood Cell Count 14.7 X10^3/uL (4.5-11.0)
[2022-07-25 05:37] LABS: INR 1.8 (0.9-1.3); Prothrombin Time 21.1 SECONDS (10.1-12.7)
[2022-07-25 05:44] LABS: Alanine Aminotransferase 32 IU/L (<50); Albumin 3.5 g/dL (3.5-5.0); Alkaline Phosphatase 87 U/L (38-126); Aspartate Aminotransferase 30 IU/L (17-59); BUN Creatinine Ratio 31.3 (6-22); Bilirubin Total 0.6 mg/dL (0.2-1.3); Blood Urea Nitrogen 47 mg/dL (9-20); Calcium 8.7 mg/dL (8.4-10.2); Carbon Dioxide 30 mmol/L (22-32); Chloride 104 mmol/L (98-107); Estimated Glomerular Filt Rate 45 mL/min (>60); Globulin 3.5 g/dL (1.7-4.1); Glucose 172 mg/dL (80-110); HEMOLYSIS < 15 (0-50); Potassium 4.2 mmol/L (3.4-5.1); Sodium 143 mmol/L (137-145)
[2022-07-25] MEDS: INSULIN GLARGINE 100 UNIT/ML 3ML PEN SUBCUT ×2 (08:59→21:57)
[2022-07-25] MEDS: AMLODIPINE 5 MG TABLET PO (09:20)
[2022-07-25] MEDS: METOPROLOL ER 50 MG TABLET PO (09:20)
[2022-07-25] MEDS: LOSARTAN 50 MG TABLET PO (09:20)
--- NOTE | 2022-07-25 09:26 | P.PN_ITS ---
Subjective Subjective Date Patient Seen: 07/25/22 Interval history: Winston Houston is 86-year-old male with past medical history coronary artery disease, CKD 3, type 2 diabetes, ischemic cardiomyopathy, transvenous pacemaker, CHF, hypertension, hyperlipidemia, anticoagulated on warfarin brought in by EMS for 1 day of weakness and fatigue and confusion prior to presentation. Clinic today he was still quite confused and then has seemed to woke up and become more alert and been able to take his medication. He is on a lot of medication for pain and this may have been, in conjunction w ith his new diagnosis of pneumonia, the contributing factor for his confusion. Exam Vital Signs (past 8 hours): - 07/25/22 03:54 07/25/22 05:58 07/25/22 07:49 Temperature 97.5 F L 98.1 F Pulse Rate 75 72 Respiratory Rate 17 16 Blood Pressure 116/61 149/72 H Pulse Oximetry 97 98 Oxygen Delivery Method Heated High Flow Fraction of Inspired Oxygen 07/25/22 07:53 07/25/22 08:43 Temperature 96.7 F L Pulse Rate 70 72 Respiratory Rate 20 16 Blood Pressure 144/74 H Pulse Oximetry 100 100 Oxygen Delivery Method Fraction of Inspired Oxygen 77 Fraction of Inspired Oxygen 77 Oxygen Delivery Method Heated High Flow Oxygen Flow Rate 95 Narrative Exam Narrative: Gen: Alert and somewhat confused male, on high flow NC HEENT: normocephalic, atraumatic, conjunctiva clear, sclera non-icteric, oral mucosa pink and moist Neck: supple, full ROM, no JVD, trachea is midline Resp: Lungs CTA, non-labored breathing CV: RRR, no murmur or rubs Abd: soft, non-tender, normoactive BTs Skin: no lesions or rashes, dry and intact Neuro: Alert and oriented to self only. Extremities: moves all 4 extremities, is ambulatory, negative Handy?s sign Psyche: normal mood and affect. Objective Labs Result Diagrams: 07/25/22 05:15 07/25/22 05:15 Labs: Laboratory Results - last 24 hr 07/24/22 07/24/22 07/24/22 18:55 19:30 19:35 WBC RBC Hgb Hct MCV MCH MCHC RDW Plt Count Neut % (Auto) Lymph % (Auto) Woodford % (Auto) Eos % (Auto) Baso % (Auto) Neut # (Auto) Lymph # (Auto) Woodford # (Auto) Eos # (Auto) Baso # (Auto) PT INR APTT ABG pH 7.46 H ABG pCO2 43.2 ABG pO2 60 L ABG HCO3 30 H ABG Total CO2 32 H ABG O2 Saturation 92 L ABG Base Excess 7.0 H FiO2 100 Sodium Potassium Chloride Carbon Dioxide BUN Creatinine Estimated GFR BUN/Creatinine Ratio Glucose Hemoglobin A1c Lactate Calcium Magnesium Total Bilirubin AST ALT Alkaline Phosphatase Total Creatine Kinase CK-MB (CK-2) CK-MB (CK-2) Rel Index Troponin I NT-Pro-B Natriuret Pep Total Protein Albumin Globulin Albumin/Globulin Ratio Lipase Procalcitonin Urine Color Yellow Urine Appearance Clear Urine pH 5.0 Ur Specific Carpenter 1.015 Urine Protein Trace H Urine Glucose (UA) Negative Urine Ketones Negative Urine Occult Blood Trace-intact Urine Nitrate Negative Urine Bilirubin Negative Urine Urobilinogen 0.2 Ur Leukocyte Esterase Negative Urine RBC 5-10/hpf H Urine WBC None seen Ur Squamous Epith Cells None seen Urine Bacteria None seen Ur Culture Indicated? Cult not indicated SARS-CoV-2 (PCR) Negative Influenza A (RT-PCR) Flu a negative Influenza B (RT-PCR) Flu b negative RSV (PCR) Negative 07/24/22 07/24/22 07/24/22 19:38 19:38 19:38 WBC 13.1 H RBC 3.70 L Hgb 11.5 L Hct 34.7 L MCV 93.8 MCH 31.0 MCHC 33.0 RDW 13.7 Plt Count 313 Neut % (Auto) 81.4 H Lymph % (Auto) 7.0 L Woodford % (Auto) 10.7 Eos % (Auto) 0.4 L Baso % (Auto) 0.5 Neut # (Auto) 43296 H Lymph # (Auto) 900 L Woodford # (Auto) 1400 H Eos # (Auto) 100 Baso # (Auto) 100 PT 20.0 H INR 1.7 H APTT 29 ABG pH ABG pCO2 ABG pO2 ABG HCO3 ABG Total CO2 ABG O2 Saturation ABG Base Excess FiO2 Sodium Potassium Chloride Carbon Dioxide BUN Creatinine Estimated GFR BUN/Creatinine Ratio Glucose Hemoglobin A1c Lactate Calcium Magnesium Total Bilirubin AST ALT Alkaline Phosphatase Total Creatine Kinase CK-MB (CK-2) CK-MB (CK-2) Rel Index Troponin I NT-Pro-B Natriuret Pep Total Protein Albumin Globulin Albumin/Globulin Ratio Lipase Procalcitonin 0.09 Urine Color Urine Appearance Urine pH Ur Specific Carpenter Urine Protein Urine Glucose (UA) Urine Ketones Urine Occult Blood Urine Nitrate Urine Bilirubin Urine Urobilinogen Ur Leukocyte Esterase Urine RBC Urine WBC Ur Squamous Epith Cells Urine Bacteria Ur Culture Indicated? SARS-CoV-2 (PCR) Influenza A (RT-PCR) Influenza B (RT-PCR) RSV (PCR) 07/24/22 07/24/22 07/24/22 19:38 19:38 19:38 WBC RBC Hgb Hct MCV MCH MCHC RDW Plt Count Neut % (Auto) Lymph % (Auto) Woodford % (Auto) Eos % (Auto) Baso % (Auto) Neut # (Auto) Lymph # (Auto) Wood[place] # (Auto) Eos # (Auto) Baso # (Auto) PT INR APTT ABG pH ABG pCO2 ABG pO2 ABG HCO3 ABG Total CO2 ABG O2 Saturation ABG Base Excess FiO2 Sodium 143 Potassium 4.6 Chloride 99 Carbon Dioxide 32 BUN 50 H Creatinine 1.75 H Estimated GFR 38 L BUN/Creatinine Ratio 28.6 H Glucose 208 H Hemoglobin A1c 8.0 H Lactate 1.6 Calcium 9.2 Magnesium 1.6 Total Bilirubin 0.6 AST 38 ALT 39 Alkaline Phosphatase 106 Total Creatine Kinase 273 H CK-MB (CK-2) 0.58 CK-MB (CK-2) Rel Index 0.2 L Troponin I < 0.012 NT-Pro-B Natriuret Pep 486 H Total Protein 7.7 Albumin 3.9 Globulin 3.8 Albumin/Globulin Ratio 1.0 Lipase 46 Procalcitonin Urine Color Urine Appearance Urine pH Ur Specific Carpenter Urine Protein Urine Glucose (UA) Urine Ketones Urine Occult Blood Urine Nitrate Urine Bilirubin Urine Urobilinogen Ur Leukocyte Esterase Urine RBC Urine WBC Ur Squamous Epith Cells Urine Bacteria Ur Culture Indicated? SARS-CoV-2 (PCR) Influenza A (RT-PCR) Influenza B (RT-PCR) RSV (PCR) 07/25/22 07/25/22 07/25/22 05:15 05:15 05:15 WBC 14.7 H RBC 3.40 L Hgb 10.3 L Hct 32.2 L MCV 94.7 MCH 30.3 MCHC 31.9 RDW 13.6 Plt Count 296 Neut % (Auto) 81.8 H Lymph % (Auto) 7.7 L Woodford % (Auto) 10.1 Eos % (Auto) 0.2 L Baso % (Auto) 0.2 Neut # (Auto) 74150 H Lymph # (Auto) 1100 Woodford # (Auto) 1500 H Eos # (Auto) 0 Baso # (Auto) 0 PT 21.1 H INR 1.8 H APTT ABG pH ABG pCO2 ABG pO2 ABG HCO3 ABG Total CO2 ABG O2 Saturation ABG Base Excess FiO2 Sodium 143 Potassium 4.2 Chloride 104 Carbon Dioxide 30 BUN 47 H Creatinine 1.50 H Estimated GFR 45 L BUN/Creatinine Ratio 31.3 H Glucose 172 H Hemoglobin A1c Lactate Calcium 8.7 Magnesium Total Bilirubin 0.6 AST 30 ALT 32 Alkaline Phosphatase 87 Total Creatine Kinase CK-MB (CK-2) CK-MB (CK-2) Rel Index Troponin I NT-Pro-B Natriuret Pep Total Protein 7.0 Albumin 3.5 Globulin 3.5 Albumin/Globulin Ratio 1.0 Lipase Procalcitonin Urine Color Urine Appearance Urine pH Ur Specific Carpenter Urine Protein Urine Glucose (UA) Urine Ketones Urine Occult Blood Urine Nitrate Urine Bilirubin Urine Urobilinogen Ur Leukocyte Esterase Urine RBC Urine WBC Ur Squamous Epith Cells Urine Bacteria Ur Culture Indicated? SARS-CoV-2 (PCR) Influenza A (RT-PCR) Influenza B (RT-PCR) RSV (PCR) PFSH Medical History Bleeding ulcer Chronic anticoagulation Chronic gout Chronic kidney disease (CKD) stage G3a/A1, moderately decreased glomerular filtration rate (GFR) between 45-59 mL/min/1.73 square meter and albuminuria creatinine ratio less than 30 mg/g Diabetes type 2, controlled Heart attack Hyperlipidemia Hypertension Left bundle branch block Presence of combination internal cardiac defibrillator (ICD) and pacemaker Right leg weakness 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 Metabolic encephalopathy associated with a suspected facility acquired pneumonia, acute and present on admission * Patient has been at [facility] prior for the past 2 weeks. * He was initiated on IV cefepime and azithromycin in the ED and this will be continued * He was bolused in the ED and will provide gentle hydration with NS at 75 ml/hour for 1 liter to avoid volume overload. Once completed to saline lock. 2. Acute on chronic kidney injury in the setting probable dehydration due to poor PO intake * Creatinine and eGFR are slightly worsened over baseline. Continue to follow labs. * See fluid hydration above 3. Diabetes type 2 poorly controlled * Oral antidiabetics are being held * Glargine 5 units subQ twice daily, may need to adjust higher * Medium dose regular insulin correctional scale. 3. 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 Atrial fibrillation w/ acemaker status, chronic * Continue home doses of amiodarone, metoprolol 5. Anticoagulation w/warfarin, subtherapeutic * INR is 1.7, subtherapeutic * He is given warfarin 10 mg tonight * Daily PT/INR monitoring, today INR was 1.8. Will give 10 mg of warfarin again today. Recheck INR in the morning. * He takes due to a history of a PE 6. Advanced care planning: * stated the POLST form done in 2020 is still consistent with their wishes which is a DNR/DNI with limited intervention. This was clarified by the admitting provider Follow clinically and follow labs. Other independent historians: present in the room during examination and discussed patient with the VTE Prophylaxis: Wells risk score? 0 X Bilateral SCDs? Patient is currently anticoagulated on warfarin. Dispo: probable return to rehab Code status: DNR as discussed with the patient who identifies Venice as? his surrogate and POA. Time Spent With Patient Critical Care time: I spent a total of [] minutes of critical care time on this patient's care t conchita; this time is exclusive of procedural time.
[2022-07-25] MEDS: AZITHROMYCIN 500 MG in DEXTROSE 5% IN WATER 250 ML 250 MG IV (09:52)
[2022-07-25] MEDS: carBAMazepine 200 MG TABLET PO (09:52)
[2022-07-25] MEDS: TAMSULOSIN 0.4 MG CAPSULE PO (09:52)
[2022-07-25] MEDS: AMIODARONE 200 MG TABLET PO (09:52)
[2022-07-25] MEDS: INSULIN LISPRO 100 UNIT/ML 3ML VIAL SUBCUT ×2 (12:14→21:56)
--- NOTE | 2022-07-25 13:03 | CM.DANOTE ---
Patient is an 87 yo male who was admitted on 07/24/22 for Lethargy/LOC. Pt has [facility] for insurance and his PCP is Dr. Trinidad Garcia. EMR was reviewed. Per MD, pt with recent admission at [facility] and discharged to [facility] SNF and admitted with hypoxic resp failure/pneumonia/encephalopathy and currently on HHF O2. PT not yet ordered as pt likely more medically appropriate tomorrow 07/26/22. SW met bedside with pt and spouse and explained role and pt began dosing off to sleep but spouse confirms they live in [place] [facility] together and have local supportive family and a close restorationism group and pt is typically independent with ADL's at baseline and uses a walker without assist but since right before [place] pt started developing AFIB and pneumonia and became so weak that he could not ambulate. Spouse states pt has been at [facility] rehab for about 3-4 days and she has concerns with their level of care and preference is for pt to d/c to another SNF. SW provided the SNF Choice list via paper and Ipad and spouse preference is the paper and plans to call [facility] and to tour them tomorrow to determine her preference and SW discussed that would need to be contracted with pt's [employer] insurance and would need to have a bed available when pt ready for d/c and she acknowledged understanding. Discussed [facility] in the home and HH and spouse confirms that they have used [facility] in the past and spouse has used [facility] when her mother lived with her before she and she is aware of the cost and difficulty with finding good caregivers but would consider this once pt improves and stronger and can ambulate with less assist. PASRR completed in anticipation of SNF. CC Moira kindly made initial referral to [facility] to review but will need PT/OT eval and notes towards [employer] insurance auth. Plan: SW to follow for PT/OT eval tomorrow when pt more medically appropriate and ongoing discussion with spouse Venice regarding SNF tours and preference. SARAH Boyd Discharge Planning/Care Management CM Discharge Assessment Start: 07/25/22 13:01 Freq: Status: Active Protocol: Document 07/25/22 13:01 BF (Rec: 07/25/22 13:03 BF [id number]) Discharge Planning Assessment Assigned Stock Trader SARAH Johnson DPOA/Assigned Designee Name Spouse Venice Contact Information [phone] Advance Directives? Yes Advance Directives on File No History Provided By Patient,Significant Other, Medical Record Has Patient been admitted in last 30 No days? Comment Was at [facility] recently and discharged to [facility] Prior Living Arrangements House Household Members spouse Type of transporation used prior to Relies on Others admit Independent with ADL's Yes Is patient alert and oriented? Yes Needs Assistance With Home Chores / Shopping Caregiver for Another No DME Already Rented / Owned FWW / Walker Comment Pt stated he inherited his mother in law's 4WW, w/c and electric recliner Patient/Family Preference Care Home Facility Barriers to Discharge Yes Comment Pt/spouse do not want to return to [facility] but will need SNF and [employer] auth Discharge Plan Care Home Facility Transportation Arrangement SNF facility van Referrals Initiated Care Home Medicare Choice List Provided Yes SNF/HH Preference Spouse plans to tour [facility], [facility] for SNF preference Has Agency SNF been contacted Yes Whiteboard Updated in Patient Room with Yes name and ext. # of Stock Trader Review Status In Process Please Provide Date Initial DC 07/25/22 Assessment Was Performed Next Review Type Continued Stay Review
[2022-07-25] MEDS: CODEINE/ACETAMINOPHEN 30/300 TABLET 1 TAB PO ×2 (13:09→18:44)
[2022-07-25] MEDS: WARFARIN 5 MG TABLET 10 MG PO (17:17)
[2022-07-25] MEDS: GABAPENTIN 300 MG CAPSULE PO (21:54)
[2022-07-25] MEDS: OXYCODONE/ACETAMINOPHEN 5/325 TABLET 1 TAB PO (21:55)
[2022-07-25] MEDS: ATORVASTATIN 20 MG TABLET 80 MG PO (21:55)
[2022-07-26] VITALS (12 sets, daily range): BP systolic 97–134; BP diastolic 46–70; PULSE 68–92; RESP 14–20; TEMP 36.1–36.6; O2SAT 90–98
[2022-07-26] MEDS: CEFEPIME 1 GM in SODIUM CHLORIDE 0.9% 100 ML IV ×2 (04:22→18:40)
[2022-07-26] MEDS: PANTOPRAZOLE DR 40 MG TABLET PO (06:58)
[2022-07-26] MEDS: CODEINE/ACETAMINOPHEN 30/300 TABLET 1 TAB PO ×2 (07:01→19:05)
[2022-07-26 07:28] LABS: Add Manual Diff / Slide Review NO; Basophils Absolute Auto 0 /uL (0-100); Basophils Percent Auto 0.1 % (0-2); Eosinophils Absolute Auto 100 /uL (0-450); Eosinophils Percent Auto 0.5 % (2-4); Hematocrit 28.7 % (41-53); Hemoglobin 9.4 g/dL (13.5-17.5); Lymphocytes Absolute Auto 1100 /uL (1100-4500); Lymphocytes Percent Auto 7.8 % (25-40); Mean Corpuscular HGB Conc 32.8 % (30-36); Mean Corpuscular Hemoglobin 31.1 PG (26-34); Mean Corpuscular Volume 94.9 fL (80-100); Monocytes Absolute Auto 1200 /uL (0-900); Monocytes Percent Auto 8.2 % (3-14); Neutrophils Absolute Auto 12100 /uL (1500-7000); Neutrophils Percent Auto 83.4 % (50-75); Platelet Count 261 X10^3/uL (150-400); Red Blood Cell Count 3.03 X10^6/uL (4.5-5.9); Red Cell Distribution Width 13.7 % (11.6-14.8); White Blood Cell Count 14.5 X10^3/uL (4.5-11.0)
[2022-07-26 07:34] LABS: INR 2.4 (0.9-1.3); Prothrombin Time 27.5 SECONDS (10.1-12.7)
[2022-07-26 07:50] LABS: Alanine Aminotransferase 30 IU/L (<50); Albumin 3.2 g/dL (3.5-5.0); Albumin Globulin Ratio 0.9 (1.0-2.8); Alkaline Phosphatase 87 U/L (38-126); Aspartate Aminotransferase 27 IU/L (17-59); BUN Creatinine Ratio 27.9 (6-22); Bilirubin Total 0.4 mg/dL (0.2-1.3); Blood Urea Nitrogen 43 mg/dL (9-20); Calcium 8.8 mg/dL (8.4-10.2); Carbon Dioxide 29 mmol/L (22-32); Chloride 104 mmol/L (98-107); Estimated Glomerular Filt Rate 44 mL/min (>60); Globulin 3.4 g/dL (1.7-4.1); Glucose 156 mg/dL (80-110); HEMOLYSIS < 15 (0-50); Potassium 4.2 mmol/L (3.4-5.1); Sodium 142 mmol/L (137-145); Total Protein 6.6 g/dL (6.3-8.2)
--- NOTE | 2022-07-26 08:20 | P.PN_ITS ---
Subjective Subjective Date Patient Seen: 07/26/22 Interval history: Patient remains on HFNC. He has no complaints. Agrees he will likely need a SNF when ready to discharge. Exam Vital Signs (past 8 hours): - 07/26/22 04:03 07/26/22 07:57 Temperature 97.9 F 97.0 F L Pulse Rate 76 76 Respiratory Rate 18 18 Blood Pressure 111/59 L 125/70 Pulse Oximetry 97 98 Oxygen Flow Rate 67 Fraction of Inspired Oxygen 72 Oxygen Delivery Method Heated High Flow Oxygen Flow Rate 67 Narrative Exam Narrative: Gen: Alert elderly male, on high flow NC HEENT: normocephalic, atraumatic, conjunctiva clear, sclera non-icteric, oral mucosa pink and moist Neck: supple, full ROM, no JVD, trachea is midline Resp: Lungs CTA, non-labored breathing CV: RRR, no murmur or rubs Abd: soft, non-tender, normoactive BTs Skin: no lesions or rashes, dry and intact Neuro: Alert and oriented to self only. Extremities: moves all 4 extremities, is ambulatory, negative Handy?s sign Psyche: normal mood and affect. Objective Labs Result Diagrams: 07/26/22 06:51 07/26/22 06:51 Labs: Laboratory Results - last 24 hr 07/26/22 07/26/22 07/26/22 06:51 06:51 06:51 WBC 14.5 H RBC 3.03 L Hgb 9.4 L Hct 28.7 L MCV 94.9 MCH 31.1 MCHC 32.8 RDW 13.7 Plt Count 261 Neut % (Auto) 83.4 H Lymph % (Auto) 7.8 L Lucas % (Auto) 8.2 Eos % (Auto) 0.5 L Baso % (Auto) 0.1 Neut # (Auto) 06277 H Lymph # (Auto) 1100 Lucas # (Auto) 1200 H Eos # (Auto) 100 Baso # (Auto) 0 PT 27.5 H D INR 2.4 H Sodium 142 Potassium 4.2 Chloride 104 Carbon Dioxide 29 BUN 43 H Creatinine 1.54 H Estimated GFR 44 L BUN/Creatinine Ratio 27.9 H Glucose 156 H Calcium 8.8 Total Bilirubin 0.4 AST 27 ALT 30 Alkaline Phosphatase 87 Total Protein 6.6 Albumin 3.2 L Globulin 3.4 Albumin/Globulin Ratio 0.9 L PFSH Medical History Bleeding ulcer Chronic anticoagulation Chronic gout Chronic kidney disease (CKD) stage G3a/A1, moderately decreased glomerular fi ltration rate (GFR) between 45-59 mL/min/1.73 square meter and albuminuria creatinine ratio less than 30 mg/g Diabetes type 2, controlled Heart attack Hyperlipidemia Hypertension Left bundle branch block Presence of combination internal cardiac defibrillator (ICD) and pacemaker Right leg weakness 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 Metabolic encephalopathy associated with a suspected facility acquired gram negative pneumonia, acute and present on admission * Patient has been at [facility] prior for the past 2 weeks. * He was initiated on IV cefepime and azithromycin in the ED and this will be continued * He was bolused in the ED and then given gentle hydration with NS at 75 ml/hour for 1 liter to avoid volume overload. * CXR with LLL consolidation * Continues to need HFNC, if not improving will consider CT chest. Potentially with contast if SRINIVAS improves to r/o PE as patient had subtherapeutic INR on admission and has a history of PE. 2. Acute on chronic kidney injury in the setting probable dehydration due to poor PO intake * Creatinine and eGFR are slightly worsened over baseline. Continue to follow labs. * Continue 75cc/hr NS as suspect patient is still dry 3. Diabetes type 2 * Oral antidiabetics are being held * Glargine 5 units subQ twice daily, may need to adjust higher * Medium dose regular insulin correctional scale. * A1c 8% 3. Combined diastolic/systolic CHF, chronic * Last echo on 11/10/21 with EF 45-50% and anterolateral and distal septal wall hypokinesis * He is on both a beta beatrice and ARB, this will be continued 4. Atrial fibrillation w/ pacemaker status, chronic * Continue home doses of amiodarone, metoprolol, warfarin 5. Anticoagulation w/warfarin due to PE in October 2020, subtherapeutic * INR is 1.7 on admission, subtherapeutic * Daily PT/INR monitoring * Resume home warfarin dosing 6. Advanced care planning: * stated the POLST form done in 2020 is still consistent with their wishes which is a DNR/DNI with limited intervention. This was clarified by the admitting provider VTE Prophylaxis: Patient is currently anticoagulated on warfarin. Dispo: Likely return to SNF in 2-3 days pending improvement in oxygenation. Code status: DNR as discussed with the patient who identifies Venice as?his surrogate and POA. Time Spent With Patient Critical Care time: I spent a total of [] minutes of critical care time on this patient's care today; this time is exclusive of procedural time.
[2022-07-26 08:28] LABS: C-Reactive Protein Quant 31.8 mg/dL (<1.0)
[2022-07-26] MEDS: AMLODIPINE 5 MG TABLET PO (10:02)
[2022-07-26] MEDS: METOPROLOL ER 50 MG TABLET PO (10:03)
[2022-07-26] MEDS: INSULIN LISPRO 100 UNIT/ML 3ML VIAL SUBCUT ×4 (10:15→20:46)
[2022-07-26] MEDS: AMIODARONE 200 MG TABLET PO (10:20)
[2022-07-26] MEDS: TAMSULOSIN 0.4 MG CAPSULE PO (10:20)
[2022-07-26] MEDS: carBAMazepine 200 MG TABLET PO (10:20)
[2022-07-26] MEDS: AZITHROMYCIN 500 MG in DEXTROSE 5% IN WATER 250 ML 250 MG IV (10:21)
[2022-07-26] MEDS: INSULIN GLARGINE 100 UNIT/ML 3ML PEN SUBCUT ×2 (10:23→20:46)
--- NOTE | 2022-07-26 10:47 | CM.DANOTE ---
Patient is an 88 yo female who was admitted on 07/25/22 for SOB. Pt has [employer] and the [employer] for insurance and her PCP is Dr. Candi Paniagua. EMR was reviewed. Per MD, pt admitted with pneumonia with sepsis and CHF. SW met bedside with pt and Dtr/DPOA Andie Iglesias [phone] and explained role and they confirm that pt resides alone (now ) at [facility] on the Assisted Living Side and receives assist with most ADLs and uses a 4WW for ambulation but does not ambulate far. Dtr lives locally about 5 min away and pt also has supportive son who lives in [place]. They deny any hx of HH or SNF in the past few years for pt but pt did go to SNF years ago when she had ankle fx. SW discussed likely need for PT orders to confirm pt safe for return to [facility] and they would be agreeable to HH if needed and aware if pt far below baseline might need SNF at d/c pending progress. Pt currently on oxygen and does not have home O2 at baseline. SW called Alka at [facility] and left msg and faxed H&P for review towards hopeful d/c back. Plan: SW to follow for likely PT/OT orders for today towards determining return to [facility] vs SNF. SARAH Boyd Discharge Planning/Care Management CM Discharge Assessment Start: 07/25/22 13:01 Freq: Status: Active Protocol: Document 07/25/22 13:01 BF (Rec: 07/25/22 13:03 [id number]) Discharge Planning Assessment Assigned Cut Off Saw Operator Metal SARAH Johnson DPOA/Assigned Designee Name Spouse [place] Contact Information [phone] Advance Directives? Yes Advance Directives on File No History Provided By Patient,Significant Other, Medical Record Has Patient been admitted in last 30 No days? Comment Was at [facility] recently and discharged to [facility] Prior Living Arrangements House Household Members spouse Type of transporation used prior to Relies on Others admit Independent with ADL's Yes Is patient alert and oriented? Yes Needs Assistance With Home Chores / Shopping Caregiver for Another No DME Already Rented / Owned FWW / Walker Comment Pt stated he inherited his mother in law's 4WW, w/c and electric recliner Patient/Family Preference Longterm Facility Barriers to Discharge Yes Comment Pt/spouse do not want to return to [facility] but will need SNF and [employer] auth Discharge Plan Longterm Facility Transportation Arrangement SNF facility van Referrals Initiated Longterm Medicare Choice List Provided Yes SNF/HH Preference Spouse plans to tour [facility], [facility], [facility] for SNF preference Has Agency SNF been contacted Yes Whiteboard Updated in Patient Room with Yes name and ext. # of Cut Off Saw Operator Metal Review Status In Process Please Provide Date Initial DC 07/25/22 Assessment Was Performed Next Review Type Continued Stay Review
--- NOTE | 2022-07-26 11:05 | PT.IIE ---
Current Diagnoses Pneumonia, unspecified organism (07/24/22) Surgical History (Last Reviewed 07/24/22 @ 22:50 by DANIELLE Koch) H/O sinus surgery History of brain surgery History of cholecystectomy S/P CABG x 4 Medical History (Last Reviewed 07/24/22 @ 22:50 by DANIELLE Koch) Bleeding ulcer Chronic anticoagulation Chronic gout Chronic kidney disease (CKD) stage G3a/A1, moderately decreased glomerular filtration rate (GFR) between 45-59 mL/min/1.73 square meter and albuminuria creatinine ratio less than 30 mg/g Diabetes type 2, controlled Heart attack Hyperlipidemia Hypertension Left bundle branch block Presence of combination internal cardiac defibrillator (ICD) and pacemaker Right leg weakness 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 [facility] Medical Review Prior Functional Status Medical History Reviewed Yes Communication [place]; able to answer questions and follow directions but needs increase time to complete Social History Household Members spouse Living Arrangements House Number of Floors (Floors) One Floor Number of Stairs To Enter/Railing? 4 steps R rail ascending Home Environment High Toilet,Walk in Shower, Built-In Shower Seat Home Equipment Front Wheel Walker,Four Wheel Walker,Straight Cane,Lift Recliner,Grab Bars Near Toilet M2 PT-IP Current Condition Start: 07/26/22 12:12 Freq: NEEDED Status: Active Protocol: Document 07/26/22 11:05 AB (Rec: 07/26/22 12:22 AB [email or web address]) Physical Therapy Current Condition Current Condition Evaluation Date 07/26/22 Treatment Diagnosis PNA; difficutly in walking Onset Date 07/24/22 M3 PT-IP Subjective Start: 07/26/22 12:12 Freq: NEEDED Status: Active Protocol: Document 07/26/22 11:05 AB (Rec: 07/26/22 12:22 AB [email or web address]) Subjective Physical Therapy Visit Type Type Initial Evaluation Visit Start Time 11:05 Visit Stop Time 11:46 Total Visit Minutes 41 Number of ONCOLOGY TECHNICIAN Visits 0 Physical Therapy Visit Comments Patient Comments agreeable to do PT Therapy Pain Assessment Pain When Pain Assessed At Rest Location Eye Scale Used pain scale not stated Description Chronic Pain Management Techniques Distraction M4 PT-IP Mobility and Gait Start: 07/26/22 12:12 Freq: NEEDED Status: Active Protocol: Document 07/26/22 11:05 AB (Rec: 07/26/22 12:22 AB [email or web address]) PT-Bed Mobility Assessment Supine to Sit Supine to Sit Maximum Assistance,1 Person Assistance,Head of Bed Elevated,Bedrails Scooting Scooting to Edge of Bed Maximum Assistance PT-Transfer Assessment Sit to and From Stand Sit to and from Stand Maximum Assistance,2 Person Assistance,Use of Upper Extremities Equipment Transfer Assistive Device Gait Belt,Front Wheeled Walker Orthotic/Prosthetic Devices or Brace: No Transfers Transfer Destination Chair Transfer Ability Level of Assist Maximum Assistance,2 Person Assistance,Use of Upper Extremities Comments Mobility Comments pt on high flow O2 nasal cannula. completed supine to sit max A and max cues. max A for scooting to EOB. completed sit to stand max A x 2 and max cues and able to step transfer to chair max A x 2 and max cues. positioned pt on the chair. call light and table placed within reach. pt refused ambulation and c/o feeling tired. PT-Balance Assessment Sitting Balance and Reactions Static Sitting Balance Ability Fair Dynamic Sitting Balance Ability Fair Standing Balance and Reactions Static Standing Balance Ability Poor Dynamic Standing Balance Ability Poor Device Used FWW M5 PT-IP Objective Assessments Start: 07/26/22 12:12 Freq: NEEDED Status: Active Protocol: Document 07/26/22 11:05 AB (Rec: 07/26/22 12:22 AB [email or web address]) Orientation Orientation/Cognition Level of Alertness Confusional State Orientation Name Language Function Ability Hard of Hearing Safety Awareness Decreased Safety Awareness Memory Description Short Term Impaired Gross Range of Motion Lower Extremity ROM Assessment Within Functional Limits Strength Lower Extremity Strength Assessment Bilaterally Impaired Comments Strength Comments RLE: 3/5 LLE: 3+/5 Muscle Tone Muscle Tone WNL Yes M6 PT-IP Treatment Start: 07/26/22 12:12 Freq: NEEDED Status: Active Protocol: Document 07/26/22 11:05 AB (Rec: 07/26/22 12:22 AB [email or web address]) Physical Therapy Treatment Education Education Provided Safety M7 PT-IP Assessment and Plan Start: 07/26/22 12:12 Freq: NEEDED Status: Active Protocol: Document 07/26/22 11:05 AB (Rec: 07/26/22 12:22 AB [id number]) PT Summary Assessment and Plan Potential Rehabilitation Potential Fair Status of Condition at Evaluation Evolving Summary Impairments Pain,ROM,Strength,Balance, Coordination,Sensation,Tone, Cognition,Bed Mobility, Transfers,Gait,Activity Tolerance Assessment Summary pt requiring max for bed mobility, max A x 2 for transfer using FWW . pt with decrease activity tolerance affecting mobility. pt will require SNF rehab to improve strength and function. Goals Bed Mobility Goal Minimal Assistance Transfer Goal Moderate Assistance,Front Wheeled Walker Gait Goal Moderate Assistance,Front Wheel Walker Gait Distance 50 Other Goals improve bed mobility, transfers and ambulation using FWW 100 ft SBA up/down 4 steps R rail ascending SBA Days to Meet Goals 10 Frequency of Treatment Frequency Of Treatment Once a Day Treatment Plan Physical Therapy Treatment Plan Bed Mobility Training,Transfer Training,Gait Training, Therapeutic Exercise,Balance Retraining,Discharge Planning, Hot or Cold Pack,Neuromuscular Re-ed,Coordination Retraining ,Manual Therapy Precautions Other Precautions falls,O2 sat ( on heated high flow) Recommendations To Nursing Amount of Assist Needed 2 Person Assist Discharge Recommendations PT Discharge Recommendations SNF Rehab Transportation Needs at Discharge Wheelchair/Cabulance
--- NOTE | 2022-07-26 13:30 | OT.IP.EVAL ---
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 Thyroid nodule Surgical History (Last Reviewed 07/24/22 @ 22:50 by DANIELLE Koch) H/O sinus surgery History of brain surgery History of cholecystectomy S/P CABG x 4 Occupational Therapy Inpatient Evaluation/Re-Eval M1 PT/OT-IP Prior Functional Status Start: 07/26/22 12:12 Freq: NEEDED Status: Active Protocol: Document 07/26/22 13:35 [facility] (Rec: 07/26/22 13:57 [facility] [id number]) Medical Review Prior Functional Status Medical History Reviewed Yes Communication [place]; able to answer questions and follow directions but needs increase time to complete Social History Household Members spouse Living Arrangements House Number of Floors (Floors) One Floor Number of Stairs To Enter/Railing? 4 steps R rail ascending Home Environment High Toilet,Walk in Shower, Built-In Shower Seat Home Equipment Front Wheel Walker,Four Wheel Walker,Straight Cane,Lift Recliner,Grab Bars Near Toilet Additional Social History Comment Prior to pt was able to do his ADL's and walk with his walker without assist per case management notes and developed A-fib and PNA and then unable to walk . M2 OT-IP Current Condition Start: 07/26/22 13:35 Freq: Status: Active Protocol: Document 07/26/22 13:35 [facility] (Rec: 07/26/22 13:57 [facility] [id number]) Occupational Therapy Current Condition Current Condition Evaluation Date 07/26/22 Treatment Diagnosis Acute hypoxic respiratory failure/ PNA Diagnosis Onset Date 07/24/22 M3 OT- IP Subjective and Pain Start: 07/26/22 13:35 Freq: Status: Active Protocol: Document 07/26/22 13:35 [facility] (Rec: 07/26/22 13:57 [facility] [id number]) OT- Subjective Occupational Therapy Visit Type Type Initial Evaluation Visit Start Time 13:07 Visit Stop Time 13:30 Total Visit Minutes 23 Occupational Therapy Visit Comments Patient Comments Pt wanting to get back to bed. Patient/Caregiver Goals Pt did not state as this time. OT Pain Assessment Pain When Pain Assessed At Rest Pain Present Pain Present Pain Reported M4 OT- IP ADL's Start: 07/26/22 13:35 Freq: Status: Active Protocol: Document 07/26/22 13:35 [facility] (Rec: 07/26/22 13:57 [facility] [id number]) OT HBO-Onwl-Ylcscii Comments OT Self-Feeding Comments Not at meal time. OT ADL-Grooming Comments OT Grooming Comments Not performed as pt too tired. OT ADL-Oral Care Comments Oral Care Comments Not performed as pt to tired. OT ADL-Dressing General Eval Lower Body Dressing Ability Total Assistance OT ADL-Toileting General Evaluation Toileting Ability Total Assistance Comments OT Toileting Comments [place] in place. OT ADL-Bathing Comments OT Bathing Comments Sponge bath more appropriate at this time. M5 OT- IP IADL's Start: 07/26/22 13:35 Freq: Status: Active Protocol: Document 07/26/22 13:35 [facility] (Rec: 07/26/22 13:57 [facility] [id number]) OT-Instrumental Activities of Daily Living Deficits IADL Deficits Identified Deficits Home Safety Awareness Home Safety Comments Pt very sleepy at this time. Medication Management Medication Management Caregiver Administers Money Management Money Management Caregiver Provides Assistance Meal Preparation Meal Preparation Caregiver Provides Assist Assurance Assistant Assurance Assistant Caregiver Provides Assist M6 OT- IP Functional Cognition Start: 07/26/22 13:35 Freq: Status: Active Protocol: Document 07/26/22 13:35 [facility] (Rec: 07/26/22 13:57 [facility] [id number]) Cognitive Factors Limiting Selfcare Function Cognitive Ability Level of Alertness Drowsy Patient Orientation Name,Situation Attention Span Ability Capable of Focused Attention, Unable to Sustain Attention Ability to Follow Commands Able to Follow One Step Commands with Increased Time, Able to Follow One Step Commands with Repetition Cognitive Comments Cognitive Assessment Comments Pt very drowsy and able to follow commands with increased time. Pt focused on going back to bed as he was complaining of his bottom hurting. OT- Vision and Hearing OT- Hearing Assessment OT- Hearing Assessment Use of Hearing Aids OT- Vision Assessment Visual Acuity Glasses All The Time M7 OT- IP Mobility and Balance Start: 07/26/22 13:35 Freq: Status: Active Protocol: Document 07/26/22 13:35 [facility] (Rec: 07/26/22 13:57 [facility] [id number]) OT- Bed Mobility Assessment Sit to Supine Sit to Supine Assist Total Assistance,1 Person Assistance OT-Transfer Assessment Transfers Transfer Ability Minimal Assistance,Maximum Assistance,Total Assistance,1 Person Assistance Technique Transfer Destination Bed,Chair Transfer Technique Squat Pivot Devices Transfer Assistive Devices Gait Belt Comments Mobility Comments Nursing assist for cord management needs and able to scoot pt forwards in the recliner with MAXA x1 and squat pivot transfer MAX/totaAx1 plus TC x1. M8 OT- IP Objective Assessments Start: 07/26/22 13:35 Freq: Status: Active Protocol: Document 07/26/22 13:35 [facility] (Rec: 07/26/22 13:57 [facility] [id number]) OT Gross Range of Motion Upper Extremity Range of Motion Assessment Bilaterally Impaired OT Strength Upper Extremity Strength Assessment Bilaterally Impaired Comments Strength Comments Pt very tired and not able to raise his BUE over his head, to reassess tomorrow. M9 OT- IP Assessment and Plan Start: 07/26/22 13:35 Freq: Status: Active Protocol: Document 07/26/22 13:35 [facility] (Rec: 07/26/22 13:57 [facility] [id number]) OT Summary Assessment and Plan Potential Rehabilitation Potential Good Analytic Complexity at Evaluation Moderate Summary OT Impairments Pain,Range of Motion,Strength, Balance,Functional Cognition, Functional Mobility,Self- Feeding,Grooming,Dressing, Toileting,Bathing,Toilet Transfers,Shower Transfers, Activity Tolerance Progress Towards Goals Slow Progress due to Pain,Slow Progress due to Medical Issues,Slow Progress due to Activity Tolerance,Slow Progress due to Cognition Assessment Summary Pt MOD complexity and main barriers are weakness, decreased activity tolerance and on hi-flow at this time. MAx/Total assist for bed mobility and ADl needs at this time. Pt will benefit from skilled rehab. Per as noted in case management notes was GIOVANNI with ADL's and able to walk with a walker on his own just prior to this past [place]. At pt's current level too great for his to manage and will greatly benefit from skilled rehab. Goals Grooming Goal Standby Assistance Dressing Goal Minimal Assistance Toileting Goal Minimal Assistance Bathing Goal Moderate Assistance Toilet Transfer Goal Minimal Assistance Shower Transfer Goal Minimal Assistance Days to Meet Goals 25 Frequency of Treatment Frequency Of Treatment Once a Day Treatment Plan OT Treatment Plan ADL Training,Functional Cognition Training,Functional Mobility,Patient/Family Education,Discharge Planning Other Treatment Recommendations and Next Transfer to [facility] with MOD/MAXAX Treatment Focus 2 Discharge Recommendations OT Discharge Recommendations SNF Rehab Transportation Needs at Discharge Wheelchair/Cabulance,Stretcher /Ambulance
--- NOTE | 2022-07-26 16:11 | CM.DPC ---
DCP SNF Planning: Per MD, pt remains on HHF and will attempt to wean pt to NC oxygen if possible today. PT/OT completed initial eval and recommending SNF still. [facility]- confirmed spouse toured and encouraging her to other SNFs as their beds are getting full. [facility]- faxed PT/OT notes and they confirm pt would need to be off HHFNC for oxygen and will review. [facility]- faxed updated PT/OT notes today and left msg to see if they can accept. Plan: SW to follow closely with [facility] and [facility] to confirm if either can accept and initiate auth soon for d/c to SNF and keep [facility] updated if pt will return to their facility or not. PASRR done. SARAH Boyd
[2022-07-26] MEDS: WARFARIN 5 MG TABLET 15 MG PO (18:40)
[2022-07-26] MEDS: SODIUM CHLORIDE 0.9% 1,000 ML 75 ML IV (18:40)
[2022-07-26] MEDS: GABAPENTIN 300 MG CAPSULE PO (20:45)
[2022-07-26] MEDS: ATORVASTATIN 20 MG TABLET 80 MG PO (20:45)
[2022-07-26] MEDS: OXYCODONE/ACETAMINOPHEN 5/325 TABLET 1 TAB PO (20:45)
[2022-07-27] VITALS (10 sets, daily range): BP systolic 117–133; BP diastolic 46–67; PULSE 62–101; RESP 16–20; TEMP 36.1–36.8; O2SAT 91–97
--- NOTE | 2022-07-27 04:17 | PC.NURSE ---
Pt is AxOx3, calm and cooperative. VSS, pt c/o pain around his eye and recieved PRN Oxy 10mg PO at bedtime with good effect. BG-233 and pt recieved 2 units of Lispro as well as his 5 units of Glargine. Salvador is draining well and pt has NS running 75 ml/hr. Pt is continued to have heated high flow and he sats 96%. Pt's is in the room. No other changes.
[2022-07-27] MEDS: CEFEPIME 1 GM in SODIUM CHLORIDE 0.9% 100 ML IV ×2 (04:39→17:38)
[2022-07-27 06:14] LABS: Add Manual Diff / Slide Review NO; Basophils Absolute Auto 0 /uL (0-100); Basophils Percent Auto 0.3 % (0-2); Eosinophils Absolute Auto 200 /uL (0-450); Eosinophils Percent Auto 1.2 % (2-4); Hematocrit 28.1 % (41-53); Hemoglobin 8.9 g/dL (13.5-17.5); Lymphocytes Absolute Auto 1200 /uL (1100-4500); Lymphocytes Percent Auto 9.6 % (25-40); Mean Corpuscular HGB Conc 31.8 % (30-36); Mean Corpuscular Hemoglobin 30.4 PG (26-34); Mean Corpuscular Volume 95.4 fL (80-100); Monocytes Absolute Auto 1100 /uL (0-900); Monocytes Percent Auto 8.9 % (3-14); Neutrophils Absolute Auto 10100 /uL (1500-7000); Platelet Count 254 X10^3/uL (150-400); Red Blood Cell Count 2.94 X10^6/uL (4.5-5.9); White Blood Cell Count 12.7 X10^3/uL (4.5-11.0)
[2022-07-27 06:19] LABS: INR 2.9 (0.9-1.3); Prothrombin Time 34.2 SECONDS (10.1-12.7)
[2022-07-27 06:22] LABS: Alanine Aminotransferase 46 IU/L (<50); Albumin 3.1 g/dL (3.5-5.0); Albumin Globulin Ratio 0.9 (1.0-2.8); Alkaline Phosphatase 91 U/L (38-126); Aspartate Aminotransferase 51 IU/L (17-59); BUN Creatinine Ratio 29.4 (6-22); Bilirubin Total 0.4 mg/dL (0.2-1.3); Blood Urea Nitrogen 45 mg/dL (9-20); Calcium 8.6 mg/dL (8.4-10.2); Carbon Dioxide 28 mmol/L (22-32); Chloride 106 mmol/L (98-107); Estimated Glomerular Filt Rate 44 mL/min (>60); Globulin 3.4 g/dL (1.7-4.1); Glucose 154 mg/dL (80-110); HEMOLYSIS < 15 (0-50); Potassium 4.2 mmol/L (3.4-5.1); Sodium 143 mmol/L (137-145); Total Protein 6.5 g/dL (6.3-8.2)
--- NOTE | 2022-07-27 07:23 | P.PN_ITS ---
Subjective Subjective Date Patient Seen: 07/27/22 Interval history: Patient weaned from HFNC to 9L NC. at bedside and all questions were answered. She is requesting he have his Vit D level checked. Exam Vital Signs (past 8 hours): - 07/26/22 23:30 07/27/22 03:40 07/27/22 01:30 Temperature 97.7 F 97.7 F Pulse Rate 68 62 87 Respiratory Rate 17 17 Blood Pressure 106/46 L 117/46 L Pulse Oximetry 97 97 Fraction of Inspired Oxygen 67 67 07/27/22 05:57 Temperature Pulse Rate 89 Respiratory Rate Blood Pressure Pulse Oximetry Fraction of Inspired Oxygen Fraction of Inspired Oxygen 67 Oxygen Delivery Method Heated High Flow Oxygen Flow Rate 66 Narrative Exam Narrative: Gen: Alert elderly male, NC in place, fatigued HEENT: normocephalic, atraumatic, conjunctiva clear, sclera non-icteric, oral mucosa pink and moist Neck: supple, full ROM, no JVD, trachea is midline Resp: Lungs CTA, non-labored breathing CV: RRR, no murmur or rubs Abd: soft, non-tender, normoactive BTs Skin: no lesions or rashes, dry and intact Neuro: Alert and oriented to self only. Extremities: moves all 4 extremities, is ambulatory, negative Handy?s sign Psyche: normal mood and affect. Objective Labs Result Diagrams: 07/27/22 05:56 07/27/22 05:56 Labs: Laboratory Results - last 24 hr 07/26/22 07/26/22 07/26/22 06:51 06:51 06:51 WBC 14.5 H RBC 3.03 L Hgb 9.4 L Hct 28.7 L MCV 94.9 MCH 31.1 MCHC 32.8 RDW 13.7 Plt Count 261 Neut % (Auto) 83.4 H Lymph % (Auto) 7.8 L [place] % (Auto) 8.2 Eos % (Auto) 0.5 L Baso % (Auto) 0.1 Neut # (Auto) 29267 H Lymph # (Auto) 1100 [place] # (Auto) 1200 H Eos # (Auto) 100 Baso # (Auto) 0 PT 27.5 H D INR 2.4 H Sodium 142 Potassium 4.2 Chloride 104 Carbon Dioxide 29 BUN 43 H Creatinine 1.54 H Estimated GFR 44 L BUN/Creatinine Ratio 27.9 H Glucose 156 H Calcium 8.8 Total Bilirubin 0.4 AST 27 ALT 30 Alkaline Phosphatase 87 C-Reactive Protein 31.8 H Total Protein 6.6 Albumin 3.2 L Globulin 3.4 Albumin/Globulin Ratio 0.9 L 07/27/22 07/27/22 07/27/22 05:56 05:56 05:56 WBC 12.7 H RBC 2.94 L Hgb 8.9 L Hct 28.1 L MCV 95.4 MCH 30.4 MCHC 31.8 RDW 14.0 Plt Count 254 Neut % (Auto) 80.0 H Lymph % (Auto) 9.6 L [place] % (Auto) 8.9 Eos % (Auto) 1.2 L Baso % (Auto) 0.3 Neut # (Auto) 76382 H Lymph # (Auto) 1200 [place] # (Auto) 1100 H Eos # (Auto) 200 Baso # (Auto) 0 PT 34.2 H D INR 2.9 H Sodium 143 Potassium 4.2 Chloride 106 Carbon Dioxide 28 BUN 45 H Creatinine 1.53 H Estimated GFR 44 L BUN/Creatinine Ratio 29.4 H Glucose 154 H Calcium 8.6 Total Bilirubin 0.4 AST 51 ALT 46 Alkaline Phosphatase 91 C-Reactive Protein Total Protein 6.5 Albumin 3.1 L Globulin 3.4 Albumin/Globulin Ratio 0.9 L PFSH Medical History Bleeding ulcer Chronic anticoagulation Chronic gout Chronic kidney disease (CKD) stage G3a/A1, moderately decreased glomerular filtration rate (GFR) between 45-59 mL/min/1.73 square meter and albuminuria creatinine ratio less than 30 mg/g Diabetes type 2, controlled Heart attack Hyperlipidemia Hypertension Left bundle branch block Presence of combination internal cardiac defibrillator (ICD) and pacemaker Right leg weakness 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 Metabolic encephalopathy associated with a suspected facility acquired gram negative pneumonia, acute and present on admission, improving * [facility] for the past 2 weeks. * He was initiated on IV cefepime and azithromycin in the ED and this will be continued * He was bolused in the ED and then given gentle hydration with NS at 75 ml/hour for 1 liter to avoid volume overload. * CXR with LLL consolidation * Now weaned to 9L NC from HFNC. 2. Acute on chronic kidney injury in the setting probable dehydration due to poor PO intake * Creatinine and eGFR are slightly worsened over baseline. Continue to follow labs. * Continue 100cc/hr NS for 12 hours 3. Diabetes type 2 * Oral antidiabetics are being held * Glargine 5 units subQ twice daily, may need to adjust higher * Medium dose regular insulin correctional scale. * A1c 8% 3. Combined diastolic/systolic CHF, chronic * Last echo on 11/10/21 with EF 45-50% and anterolateral and distal septal wall hypokinesis * He is on both a beta beatrice and ARB, this will be continued 4. Atrial fibrillation w/ pacemaker status, chronic * Continue home doses of amiodarone, metoprolol, warfarin 5. Anticoagulation w/warfarin due to PE in October 2020, subtherapeutic * INR is 1.7 on admission, subtherapeutic * Daily PT/INR monitoring * Resume home warfarin dosing 6. Advanced care planning: * stated the POLST form done in 2020 is still consistent with their wishes which is a DNR/DNI with limited intervention. This was clarified by the admitting provider VTE Prophylaxis: Patient is currently anticoagulated on warfarin. Dispo: Likely return to SNF in 2-3 days pending improvement in oxygenation. Code status: DNR as discussed with the patient who identifies [place] as?his surrogate and POA. Time Spent With Patient Critical Care time: I spent a total of [] minutes of critical care time on this patient's care today; this time is exclusive of procedural time.
[2022-07-27] MEDS: SODIUM CHLORIDE 0.9% 1,000 ML 100 ML IV ×2 (08:10→18:00)
--- NOTE | 2022-07-27 10:11 | OT.IPNOTE ---
Per pt's nurse RT to assess to see if pt able to get off heated hi flow, therefore wait til afterwards to see pt for OT.
[2022-07-27] MEDS: AMLODIPINE 5 MG TABLET PO (10:13)
[2022-07-27] MEDS: carBAMazepine 200 MG TABLET PO (10:13)
[2022-07-27] MEDS: METOPROLOL ER 50 MG TABLET PO (10:13)
[2022-07-27] MEDS: AMIODARONE 200 MG TABLET PO (10:13)
[2022-07-27] MEDS: TAMSULOSIN 0.4 MG CAPSULE PO (10:14)
[2022-07-27] MEDS: INSULIN GLARGINE 100 UNIT/ML 3ML PEN SUBCUT ×2 (10:16→20:55)
[2022-07-27] MEDS: INSULIN LISPRO 100 UNIT/ML 3ML VIAL SUBCUT ×3 (10:16→17:45)
[2022-07-27] MEDS: CODEINE/ACETAMINOPHEN 30/300 TABLET 1 TAB PO (10:39)
[2022-07-27] MEDS: PANTOPRAZOLE DR 40 MG TABLET PO (10:40)
[2022-07-27 12:34] LABS: Vitamin D 25 Hydroxy (D3) 19.4 ng/mL (30.0-100.0)
--- NOTE | 2022-07-27 15:05 | OT.IP.TRT ---
Current Diagnoses Pneumonia, unspecified organism (07/24/22) Occupational Therapy Treatment Note M2 OT-IP Current Condition Start: 07/26/22 13:35 Freq: Status: Active Protocol: Document 07/26/22 13:35 [facility] (Rec: 07/26/22 13:57 [facility] [id number]) Occupational Therapy Current Condition Current Condition Evaluation Date 07/26/22 Treatment Diagnosis Acute hypoxic respiratory failure/ PNA Diagnosis Onset Date 07/24/22 M3 OT- IP Subjective and Pain Start: 07/26/22 13:35 Freq: Status: Active Protocol: Document 07/27/22 14:29 [facility] (Rec: 07/27/22 15:23 [facility] [id number]) OT- Subjective Occupational Therapy Visit Type Type Treatment Note Visit Start Time 14:29 Visit Stop Time 15:05 Total Visit Minutes 36 Occupational Therapy Visit Comments Patient Comments Pt agreed to get out of bed. OT Pain Assessment Pain When Pain Assessed At Rest Pain Present Pain Present Pain Reported M4 OT- IP ADL's Start: 07/26/22 13:35 Freq: Status: Active Protocol: Document 07/27/22 14:29 [facility] (Rec: 07/27/22 15:23 [facility] [id number]) OT [id number] Comments OT Self-Feeding Comments Not at meal time. OT ADL-Grooming Comments OT Grooming Comments Pt able to wipe his mouth after set-up of wash cloth. OT ADL-Dressing General Eval Lower Body Dressing Ability Total Assistance OT ADL-Toileting General Evaluation Toileting Ability Total Assistance Comments OT Toileting Comments [place] in place. OT ADL-Bathing Comments OT Bathing Comments Sponge bath more appropriate at this time. M5 OT- IP IADL's Start: 07/26/22 13:35 Freq: Status: Active Protocol: Document 07/26/22 13:35 [facility] (Rec: 07/26/22 13:57 [facility] [id number]) OT-Instrumental Activities of Daily Living Deficits IADL Deficits Identified Deficits Home Safety Awareness Home Safety Comments Pt very sleepy at this time. Medication Management Medication Management Caregiver Administers Money Management Money Management Caregiver Provides Assistance Meal Preparation Meal Preparation Caregiver Provides Assist Cell Tester Cell Tester Caregiver Provides Assist M6 OT- IP Functional Cognition Start: 07/26/22 13:35 Freq: Status: Active Protocol: Document 07/27/22 14:29 [facility] (Rec: 07/27/22 15:23 [facility] [id number]) Cognitive Factors Limiting Selfcare Function Cognitive Ability Level of Alertness Alert Patient Orientation Name,Situation Attention Span Ability Capable of Focused Attention, Unable to Sustain Attention Ability to Follow Commands Able to Follow One Step Commands Cognitive Comments Cognitive Assessment Comments Pt more alert today and able to follow directions better today. M7 OT- IP Mobility and Balance Start: 07/26/22 13:35 Freq: Status: Active Protocol: Document 07/27/22 14:29 [facility] (Rec: 07/27/22 15:23 [facility] [id number]) OT- Bed Mobility Assessment Supine to Sit Supine to Sit Assist Maximum Assistance,1 Person Assistance Scooting Scooting to Edge of Bed Moderate Assistance,1 Person Assistance OT-Transfer Assessment Sit to and From Stand Sit to and from Stand Maximum Assistance,2 Person Assistance Transfers Transfer Ability Maximum Assistance,2 Person Assistance Technique Transfer Destination Bed,Chair Transfer Technique Stand Step Pivot Devices Transfer Assistive Devices Gait Belt,Front Wheeled Walker Comments Mobility Comments MAXAX2 to stand and transfer to the recliner and O2 dropped from 91% on 8L to 86% and then back up to 91%. Pt able to stand again with MAXA x2 to FWW for 30 seconds before having to sit down again MODA to help slow his descent to the recliner, O2 dropped to 87 % and slowly kept dropping to 83%, RT called in addition to nursing. OT- Balance Assessment Sitting Balance and Reactions Static Sitting Balance Ability Good Standing Balance and Reactions Static Standing Balance Ability Fair Dynamic Standing Balance Ability Poor M9 OT- IP Assessment and Plan Start: 07/26/22 13:35 Freq: Status: Active Protocol: Document 07/27/22 14:29 [facility] (Rec: 07/27/22 15:23 [facility] [id number]) OT Summary Assessment and Plan Potential Rehabilitation Potential Good Analytic Complexity at Evaluation Moderate Summary OT Impairments Pain,Range of Motion,Strength, Balance,Functional Cognition, Functional Mobility,Self- Feeding,Grooming,Dressing, Toileting,Bathing,Toilet Transfers,Shower Transfers, Activity Tolerance Progress Towards Goals Progressing Toward Goals,Slow Progress due to Pain,Slow Progress due to Medical Issues ,Slow Progress due to Activity Tolerance,Slow Progress due to Cognition Assessment Summary Pt able to transfer today with FWW MAXA X2 and able to stand with FWW TC x2 for 30seconds and O2 level dropped form 91% to 83%. RT came in to change out O2 tubing for the pt and to see about switching out his O2 to a mask versus nasal cannula as pt tends to be a mouth breather. Pt will greatly benefit from skilled rehab when medically stable. Goals Grooming Goal Standby Assistance Dressing Goal Minimal Assistance Toileting Goal Minimal Assistance Bathing Goal Moderate Assistance Toilet Transfer Goal Minimal Assistance Shower Transfer Goal Minimal Assistance Days to Meet Goals 24 Frequency of Treatment Frequency Of Treatment Once a Day Treatment Plan OT Treatment Plan ADL Training,Functional Cognition Training,Functional Mobility,Patient/Family Education,Discharge Planning Other Treatment Recommendations and Next Transfer to [facility] with MOD/MAXAX Treatment Focus 2 Discharge Recommendations OT Discharge Recommendations SNF Rehab
--- NOTE | 2022-07-27 15:42 | PT.IPTN ---
Current Diagnoses Pneumonia, unspecified organism (07/24/22) Physical Therapy Treatment Note M2 PT-IP Current Condition Start: 07/26/22 12:12 Freq: NEEDED Status: Active Protocol: Document 07/26/22 11:05 AB (Rec: 07/26/22 12:22 AB [id number]) Physical Therapy Current Condition Current Condition Evaluation Date 07/26/22 Treatment Diagnosis PNA; difficutly in walking Onset Date 07/24/22 M3 PT-IP Subjective Start: 07/26/22 12:12 Freq: NEEDED Status: Active Protocol: Document 07/27/22 15:10 LJ (Rec: 07/27/22 15:42 LJ [id number]) Subjective Physical Therapy Visit Type Type Treatment Note Visit Start Time 14:32 Visit Stop Time 15:09 Total Visit Minutes 37 Number of POWER SEWING MACHINE OPERATOR Visits 1 Physical Therapy Visit Comments Patient Comments agreeable to do PT Therapy Pain Assessment Pain When Pain Assessed At Rest Location Eye Intensity 5 Scale Used Numeric (0 - 10) Description Chronic Pain Management Techniques Distraction M4 PT-IP Mobility and Gait Start: 07/26/22 12:12 Freq: NEEDED Status: Active Protocol: Document 07/27/22 15:10 LJ (Rec: 07/27/22 15:42 LJ [id number]) PT-Bed Mobility Assessment Supine to Sit Supine to Sit Maximum Assistance,1 Person Assistance,Head of Bed Elevated,Bedrails Scooting Scooting to Edge of Bed Maximum Assistance PT-Transfer Assessment Sit to and From Stand Sit to and from Stand Maximum Assistance,2 Person Assistance,Use of Upper Extremities Equipment Transfer Assistive Device Gait Belt,Front Wheeled Walker Orthotic/Prosthetic Devices or Brace: No Transfers Transfer Destination Chair Transfer Ability Level of Assist Maximum Assistance,2 Person Assistance,Use of Upper Extremities Comments Mobility Comments Pt in bed upon arrival. Taken off high flow O2 now on 8L O2. Resting O2 in bed 91%. Pt requiring MaxA x1 for supine- sit and MaxA x1 pivot using green pad. Second person behind pt for safety. Pt stood side of bed MaxA x2. Able to maintain standing Sarah x2 severa; seconds. Pt then transfered to the right to chair next to the bed. O2 dropped to ~87%. Pt sat in chair with CGA-Sarah x2 for controlled descent. Pt sat ~1 min O2 climbed to low 90s. Pt then completed sit>stand MaxA x2. Pt stood for 30 sec then stated he needed to sit back down. Pt required more assist with sitting down second time. O2 dropped to 83%-84%. RT called to bring proper cord extension for O2. Pt unable to inhale through nasal canula due to nose being plugged with mucus. Attempted to blow his nose but made no difference. RT considering O2 mask for pt . Pt was left in chair with needs within reach and AIRPORT OPERATIONS COORDINATOR and RT in room. Gait Assessment Comments Gait Comments see mobility comments PT-Balance Assessment Sitting Balance and Reactions Static Sitting Balance Ability Fair Standing Balance and Reactions Static Standing Balance Ability Poor Dynamic Standing Balance Ability Poor Device Used FWW M5 PT-IP Objective Assessments Start: 07/26/22 12:12 Freq: NEEDED Status: Active Protocol: Document 07/26/22 11:05 AB (Rec: 07/26/22 12:22 AB [id number]) Orientation Orientation/Cognition Level of Alertness Confusional State Orientation Name Language Function Ability Hard of Hearing Safety Awareness Decreased Safety Awareness Memory Description Short Term Impaired Gross Range of Motion Lower Extremity ROM Assessment Within Functional Limits Strength Lower Extremity Strength Assessment Bilaterally Impaired Comments Strength Comments RLE: 3/5 LLE: 3+/5 Muscle Tone Muscle Tone WNL Yes M6 PT-IP Treatment Start: 07/26/22 12:12 Freq: NEEDED Status: Active Protocol: Document 07/27/22 15:10 [facility]LEY (Rec: 07/27/22 15:42 [id number]) Physical Therapy Treatment Education Education Provided Safety M7 PT-IP Assessment and Plan Start: 07/26/22 12:12 Freq: NEEDED Status: Active Protocol: Document 07/27/22 15:10 [facility] (Rec: 07/27/22 15:42 [id number]) PT Summary Assessment and Plan Potential Rehabilitation Potential Fair Status of Condition at Evaluation Evolving Summary Impairments Pain,ROM,Strength,Balance, Coordination,Sensation,Tone, Cognition,Bed Mobility, Transfers,Gait,Activity Tolerance Assessment Summary Pt requires MaxAx1 for bed mobility, max A x 2 for transfer using FWW. Pt's O2 decreasing with minimal activity. Will require SNF rehab to improve strength, function, and activity tolerance. Goals Bed Mobility Goal Minimal Assistance Transfer Goal Moderate Assistance,Front Wheeled Walker Gait Goal Moderate Assistance,Front Wheel Walker Gait Distance 50 Other Goals improve bed mobility, transfers and ambulation using FWW 100 ft SBA up/down 4 steps R rail ascending SBA Days to Meet Goals 10 Frequency of Treatment Frequency Of Treatment Once a Day Treatment Plan Physical Therapy Treatment Plan Bed Mobility Training,Transfer Training,Gait Training, Therapeutic Exercise,Balance Retraining,Discharge Planning, Hot or Cold Pack,Neuromuscular Re-ed,Coordination Retraining ,Manual Therapy Precautions Other Precautions falls,O2 sat ( on heated high flow) Recommendations To Nursing Amount of Assist Needed 1 Person Assist Discharge Recommendations PT Discharge Recommendations SNF Rehab Transportation Needs at Discharge Wheelchair/Cabulance
[2022-07-27] MEDS: CHOLECALCIFEROL (VITAMIN D3) 1,000 UNIT TABLET 1000 UNIT PO (17:39)
[2022-07-27] MEDS: CODEINE/ACETAMINOPHEN 30/300 TABLET 2 TAB PO (17:49)
[2022-07-27] MEDS: ATORVASTATIN 20 MG TABLET 80 MG PO (20:54)
[2022-07-27] MEDS: GABAPENTIN 300 MG CAPSULE PO (20:54)
[2022-07-28] VITALS (7 sets, daily range): BP systolic 144–151; BP diastolic 64–78; PULSE 64–78; RESP 16–17; TEMP 36.1–36.5; O2SAT 91–96
[2022-07-28] MEDS: CEFEPIME 1 GM in SODIUM CHLORIDE 0.9% 100 ML IV ×2 (05:41→17:22)
--- NOTE | 2022-07-28 06:34 | PC.NURSE ---
Pt is AxOx4, need max assistance and cooperative. VSS, pt denies pain. BG-158 at bedtime. Salvador is draining clear and yellow urine. Pt is on 2L NC and sats mid 90s. Pt slept very well overnight. No problem identified. Continue monitor.
[2022-07-28] MEDS: INSULIN LISPRO 100 UNIT/ML 3ML VIAL SUBCUT ×3 (08:05→17:22)
[2022-07-28 08:06] LABS: Add Manual Diff / Slide Review NO; Basophils Absolute Auto 0 /uL (0-100); Basophils Percent Auto 0.5 % (0-2); Eosinophils Absolute Auto 300 /uL (0-450); Eosinophils Percent Auto 2.9 % (2-4); Hematocrit 26.5 % (41-53); Lymphocytes Absolute Auto 900 /uL (1100-4500); Lymphocytes Percent Auto 9.5 % (25-40); Mean Corpuscular HGB Conc 33.8 % (30-36); Mean Corpuscular Hemoglobin 31.8 PG (26-34); Mean Corpuscular Volume 94.2 fL (80-100); Monocytes Absolute Auto 900 /uL (0-900); Monocytes Percent Auto 9.4 % (3-14); Neutrophils Absolute Auto 7600 /uL (1500-7000); Neutrophils Percent Auto 77.7 % (50-75); Platelet Count 249 X10^3/uL (150-400); Red Blood Cell Count 2.81 X10^6/uL (4.5-5.9); White Blood Cell Count 9.8 X10^3/uL (4.5-11.0)
[2022-07-28] MEDS: PANTOPRAZOLE DR 40 MG TABLET PO (08:06)
[2022-07-28] MEDS: AMIODARONE 200 MG TABLET PO (08:06)
[2022-07-28] MEDS: INSULIN GLARGINE 100 UNIT/ML 3ML PEN SUBCUT ×2 (08:06→21:22)
[2022-07-28] MEDS: TAMSULOSIN 0.4 MG CAPSULE PO (08:06)
[2022-07-28] MEDS: METOPROLOL ER 50 MG TABLET PO (08:07)
[2022-07-28] MEDS: CHOLECALCIFEROL (VITAMIN D3) 1,000 UNIT TABLET 1000 UNIT PO (08:08)
[2022-07-28] MEDS: AMLODIPINE 5 MG TABLET PO (08:08)
[2022-07-28] MEDS: carBAMazepine 200 MG TABLET PO (08:08)
[2022-07-28 08:09] LABS: INR 3.5 (0.9-1.3); Prothrombin Time 40.8 SECONDS (10.1-12.7)
[2022-07-28 08:43] LABS: BUN Creatinine Ratio 29.2 (6-22); Blood Urea Nitrogen 35 mg/dL (9-20); Calcium 8.5 mg/dL (8.4-10.2); Carbon Dioxide 29 mmol/L (22-32); Chloride 108 mmol/L (98-107); Estimated Glomerular Filt Rate 59 mL/min (>60); Glucose 139 mg/dL (80-110); HEMOLYSIS < 15 (0-50); Magnesium 1.7 mg/dL (1.6-2.3); Potassium 4.2 mmol/L (3.4-5.1); Sodium 143 mmol/L (137-145)
--- NOTE | 2022-07-28 12:20 | CM.DPNOTE ---
DCP Note DC order in place today, however, the following facilities have denied this patient: [facility], [facility], [facility] (have not heard back from them), [facility], [facility] In addition, LM for Brynn at [facility], have not heard back Met w/spouse [place] to discuss barriers to securing SNF. Patient is medically discharged today. Spouse gives this [employer] permission to discuss referral with [facility] (where patient admitted from) Discussed with Ruthie at [facility] who explained there is bed availability but auth will need to be obtained from [employer] Updated spouse who is appreciative, states she cannot safely take patient home today JW
--- NOTE | 2022-07-28 13:15 | PT-IP ANOTE ---
Addendum entered and electronically signed by Janeth Beebe PTA 07/28/22 13:48: Vitals taken: elevated supine BP 148/75 HR 72 SaO2 93% on 2L. 93% on 2L post repositioning support. Original Note: Pt very lethargic when POLY PACKER AND HEAT SEALER/ OT arrived. in room stating pt sleeping alot today and can be at times at home if dehydrated. Noted swelling under R eye, stated is new. Pt not alert very sleepy noted little sacral supine, challenged initiated opening eyes then maintaining open when asked, unable initiate UE/ LE mobility requests this early pm. POLY PACKER AND HEAT SEALER/ OT assisted pt reposition up in bed, L log roll for pillow positioned posteriorly for alternat positioing for skin integrity total A x2. POLY PACKER AND HEAT SEALER/OT suggesting to nursing waffle cushion for safety support under pelvis with decreased mobilizing at this time. Spent 17 min nonbillable time. Will continue to assess progress.
--- NOTE | 2022-07-28 13:27 | OT.IPNOTE ---
Attempted to see pt for OT treatment with EMS INSTRUCTOR. Pt hard to awake, very slow to respond and at times not able to respond to commands. Pt's feels that he is different from yesterday. Able to help reposition the pt to his side with pillows, total Ax2 . Nursing aware that pt has not been awake much except for breakfast, and able to let the hospitalist know of his 's concerns. NO charge.
[2022-07-28] MEDS: NALOXONE 0.4 MG/ML VIAL 0.2 MG IV (13:50)
[2022-07-28] MEDS: SODIUM CHLORIDE 0.9% 1,000 ML 100 ML IV (14:09)
--- NOTE | 2022-07-28 14:30 | PM.PN.1 ---
Subjective Subjective Date Patient Seen: 07/28/22 Interval history: Patient quite somnolent today. is concerned its from lack of IVF and that he is dry. He had his codeine increased yesterday with last dose at 5pm on 07/27. Narcan ordered and given at approx 1415 with good effect and patient now awake and alert and answering questions appropriately. Exam Vital Signs (past 8 hours): - 07/28/22 06:57 07/28/22 08:07 07/28/22 08:00 Pulse Rate 78 78 Respiratory Rate 16 Blood Pressure 151/78 H 151/78 H Pulse Oximetry 94 91 Oxygen Flow Rate 2 07/28/22 12:00 Pulse Rate 70 Respiratory Rate 16 Blood Pressure 148/72 H Pulse Oximetry 93 Oxygen Flow Rate Fraction of Inspired Oxygen 93 Oxygen Delivery Method Nasal Cannula Oxygen Flow Rate 2 Narrative Exam Narrative: Gen: Alert elderly male, NC in place, fatigued HEENT: normocephalic, atraumatic, conjunctiva clear, sclera non-icteric, oral mucosa pink and moist Neck: supple, full ROM, no JVD, trachea is midline Resp: Lungs CTA, non-labored breathing CV: RRR, no murmur or rubs Abd: soft, non-tender, normoactive BTs Skin: no lesions or rashes, dry and intact Neuro: Alert and oriented to self only. Extremities: moves all 4 extremities, is ambulatory, negative Handy?s sign Psyche: normal mood and affect. Objective Labs Result Diagrams: 07/28/22 07:31 07/28/22 07:31 Labs: Laboratory Results - last 24 hr 07/28/22 07/28/22 07/28/22 07:31 07:31 07:31 WBC 9.8 RBC 2.81 L Hgb 9.0 L Hct 26.5 L MCV 94.2 MCH 31.8 MCHC 33.8 RDW 14.0 Plt Count 249 Neut % (Auto) 77.7 H Lymph % (Auto) 9.5 L [place] % (Auto) 9.4 Eos % (Auto) 2.9 Baso % (Auto) 0.5 Neut # (Auto) 7600 H Lymph # (Auto) 900 L [place] # (Auto) 900 Eos # (Auto) 300 Baso # (Auto) 0 PT 40.8 H D INR 3.5 H Sodium 143 Potassium 4.2 Chloride 108 H Carbon Dioxide 29 BUN 35 H Creatinine 1.20 Estimated GFR 59 L BUN/Creatinine Ratio 29.2 H Glucose 139 H Calcium 8.5 Magnesium 1.7 PFSH Medical History Bleeding ulcer Chronic anticoagulation Chronic gout Chronic kidney disease (CKD) stage G3a/A1, moderately decreased glomerular filtration rate (GFR) between 45-59 mL/min/1.73 square meter and albuminuria creatinine ratio less than 30 mg/g Diabetes type 2, controlled Heart attack Hyperlipidemia Hypertension Left bundle branch block Presence of combination internal cardiac defibrillator (ICD) and pacemaker Right leg weakness 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 Metabolic encephalopathy associated with a suspected facility acquired gram negative pneumonia, acute and present on admission, improving Patient has been at [facility] [place], operated by [facility] prior for the past 2 weeks. He was initiated on IV cefepime and azithromycin in the ED and this will be continued He was bolused in the ED and then given gentle hydration with NS at 75 ml/hour for 1 liter to avoid volume overload. CXR with LLL consolidation Now weaned to 2L NC from HFNC. Required narcan due to likely too much pain meds from codeine increase, with good effect and patient's somnolence improved immediately hold codeine pain meds, only use oxy 2. Acute on chronic kidney injury in the setting probable dehydration due to poor PO intake, resolved Creatinine and eGFR are slightly worsened over baseline. Continue to follow labs. Continue 100cc/hr NS for 12 hours Cr now normal 3. Diabetes type 2 Oral antidiabetics are being held Glargine 5 units subQ twice daily, may need to adjust higher Medium dose regular insulin correctional scale. A1c 8% 3. Combined diastolic/systolic CHF, chronic Last echo on 11/10/21 with EF 45-50% and anterolateral and distal septal wall hypokinesis He is on both a beta beatrice and ARB, this will be continued 4. Atrial fibrillation w/ pacemaker status, chronic Continue home doses of amiodarone, metoprolol, warfarin 5. Anticoagulation w/warfarin due to PE in October 2020, subtherapeutic INR is 1.7 on admission, subtherapeutic Daily PT/INR monitoring Holding warfarin due to INR of 3.5 6. Advanced care planning: stated the POLST form done in 2020 is still consistent with their wishes which is a DNR/DNI with limited intervention. This was clarified by the admitting provider VTE Prophylaxis: Patient is currently anticoagulated on warfarin. Dispo: Likely [facility] SNF on 07/29. Code status: DNR as discussed with the patient who identifies Venice as?his surrogate and POA. Time Spent With Patient Critical Care time: I spent a total of [] minutes of critical care time on this patient's care today; this time is exclusive of procedural time.
--- NOTE | 2022-07-28 17:20 | PT-IP ANOTE ---
Pt sleeping when arrived 2nd attempt to assess mobility this day. Pt's , KELLY, son in room. [employer] unable to arouse pt brisk gentle hand rubbing, cheek rubbing but no response to open eyes when asked. Pt's stated pt was awake about 1 hr ago talking, maybe now tired out. [employer] unable to work with pt, will continue to assess progress.
[2022-07-28] MEDS: ATORVASTATIN 20 MG TABLET 80 MG PO (21:23)
[2022-07-28] MEDS: GABAPENTIN 300 MG CAPSULE PO (21:23)
[2022-07-28] MEDS: OXYCODONE/ACETAMINOPHEN 5/325 TABLET 1 TAB PO (21:36)
[2022-07-29] MEDS: SODIUM CHLORIDE 0.9% 1,000 ML 100 ML IV (00:26)
[2022-07-29 01:00] VITALS: BP 144/73; PULSE 75; RESP 18; TEMP 36.2; O2SAT 98
[2022-07-29] MEDS: CEFEPIME 1 GM in SODIUM CHLORIDE 0.9% 100 ML IV (04:27)
[2022-07-29 05:08] VITALS: BP 136/70; PULSE 66; RESP 20; TEMP 36.4; O2SAT 91
[2022-07-29] MEDS: SODIUM CHLORIDE 0.9% FLUSH 10 ML IV ×2 (05:39→08:50)
[2022-07-29 05:44] LABS: INR 3.5 (0.9-1.3); Prothrombin Time 41.2 SECONDS (10.1-12.7)
[2022-07-29 05:47] LABS: Add Manual Diff / Slide Review NO; Basophils Absolute Auto 0 /uL (0-100); Basophils Percent Auto 0.5 % (0-2); Eosinophils Absolute Auto 300 /uL (0-450); Eosinophils Percent Auto 3.1 % (2-4); Hematocrit 25.9 % (41-53); Hemoglobin 8.6 g/dL (13.5-17.5); Lymphocytes Absolute Auto 1100 /uL (1100-4500); Lymphocytes Percent Auto 12.9 % (25-40); Mean Corpuscular HGB Conc 33.2 % (30-36); Mean Corpuscular Hemoglobin 31.2 PG (26-34); Mean Corpuscular Volume 93.9 fL (80-100); Monocytes Absolute Auto 1100 /uL (0-900); Monocytes Percent Auto 12.4 % (3-14); Neutrophils Absolute Auto 6100 /uL (1500-7000); Neutrophils Percent Auto 71.1 % (50-75); Platelet Count 249 X10^3/uL (150-400); Red Blood Cell Count 2.75 X10^6/uL (4.5-5.9); Red Cell Distribution Width 13.8 % (11.6-14.8); White Blood Cell Count 8.6 X10^3/uL (4.5-11.0)
[2022-07-29 05:48] LABS: BUN Creatinine Ratio 23.9 (6-22); Blood Urea Nitrogen 26 mg/dL (9-20); Calcium 8.4 mg/dL (8.4-10.2); Carbon Dioxide 26 mmol/L (22-32); Chloride 110 mmol/L (98-107); Estimated Glomerular Filt Rate > 60 mL/min (>60); Glucose 136 mg/dL (80-110); HEMOLYSIS < 15 (0-50); Potassium 3.7 mmol/L (3.4-5.1); Sodium 144 mmol/L (137-145)
--- NOTE | 2022-07-29 07:28 | P.PN_ITS ---
Exam Vital Signs (past 8 hours): - 07/29/22 01:00 07/29/22 05:08 Temperature 97.2 F L 97.5 F L Pulse Rate 75 66 Respiratory Rate 18 20 Blood Pressure 144/73 H 136/70 Pulse Oximetry 98 91 Oxygen Flow Rate 3 3 Fraction of Inspired Oxygen 93 Oxygen Delivery Method Nasal Cannula Oxygen Flow Rate 3 Narrative Exam Narrative: Gen: Alert elderly male, NC in place, fatigued HEENT: normocephalic, atraumatic, conjunctiva clear, sclera non-icteric, oral mucosa pink and moist Neck: supple, full ROM, no JVD, trachea is midline Resp: Lungs CTA, non-labored breathing CV: RRR, no murmur or rubs Abd: soft, non-tender, normoactive BTs Skin: no lesions or rashes, dry and intact Neuro: Alert and oriented to self only. Extremities: moves all 4 extremities, is ambulatory, negative Handy?s sign Psyche: normal mood and affect. Objective Labs Result Diagrams: 07/29/22 05:25 07/29/22 05:25 Labs: Laboratory Results - last 24 hr 07/28/22 07/28/22 07/28/22 07:31 07:31 07:31 WBC 9.8 RBC 2.81 L Hgb 9.0 L Hct 26.5 L MCV 94.2 MCH 31.8 MCHC 33.8 RDW 14.0 Plt Count 249 Neut % (Auto) 77.7 H Lymph % (Auto) 9.5 L [place] % (Auto) 9.4 Eos % (Auto) 2.9 Baso % (Auto) 0.5 Neut # (Auto) 7600 H Lymph # (Auto) 900 L [place] # (Auto) 900 Eos # (Auto) 300 Baso # (Auto) 0 PT 40.8 H D INR 3.5 H Sodium 143 Potassium 4.2 Chloride 108 H Carbon Dioxide 29 BUN 35 H Creatinine 1.20 Estimated GFR 59 L BUN/Creatinine Ratio 29.2 H Glucose 139 H Calcium 8.5 Magnesium 1.7 07/29/22 07/29/22 07/29/22 05:25 05:25 05:25 WBC 8.6 RBC 2.75 L Hgb 8.6 L Hct 25.9 L MCV 93.9 MCH 31.2 MCHC 33.2 RDW 13.8 Plt Count 249 Neut % (Auto) 71.1 Lymph % (Auto) 12.9 L Wright % (Auto) 12.4 Eos % (Auto) 3.1 Baso % (Auto) 0.5 Neut # (Auto) 6100 Lymph # (Auto) 1100 Wright # (Auto) 1100 H Eos # (Auto) 300 Baso # (Auto) 0 PT 41.2 H INR 3.5 H Sodium 144 Potassium 3.7 Chloride 110 H Carbon Dioxide 26 BUN 26 H Creatinine 1.09 Estimated GFR > 60 BUN/Creatinine Ratio 23.9 H Glucose 136 H Calcium 8.4 Magnesium PFSH Medical History Bleeding ulcer Chronic anticoagulation Chronic gout Chronic kidney disease (CKD) stage G3a/A1, moderately decreased glomerular filtration rate (GFR) between 45-59 mL/min/1.73 square meter and albuminuria creatinine ratio less than 30 mg/g Diabetes type 2, controlled Heart attack Hyperlipidemia Hypertension Left bundle branch block Presence of combination internal cardiac defibrillator (ICD) and pacemaker Right leg weakness 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 Metabolic encephalopathy associated with a suspected facility acquired gram negative pneumonia, acute and present on admission, improving * Patient has been at [facility] prior for the past 2 weeks. * He was initiated on IV cefepime and azithromycin in the ED and this will be continued * He was bolused in the ED and then given gentle hydration with NS at 75 ml/hour for 1 liter to avoid volume overload. * CXR with LLL consolidation * Now weaned to 2L NC from HFNC. * Required narcan due to likely too much pain meds from codeine increase, with good effect and patient's somnolence improved immediately * hold codeine pain meds, only use oxy 2. Acute on chronic kidney injury in the setting probable dehydration due to poor PO intake, resolved * Creatinine and eGFR are slightly worsened over baseline. Continue to follow labs. * Continue 100cc/hr NS for 12 hours * Cr now normal 3. Diabetes type 2 * Oral antidiabetics are being held * Glargine 5 units subQ twice daily, may need to adjust higher * Medium dose regular insulin correctional scale. * A1c 8% 3. Combined diastolic/systolic CHF, chronic * Last echo on 11/10/21 with EF 45-50% and anterolateral and distal septal wall hypokinesis * He is on both a beta beatrice and ARB, this will be continued 4. Atrial fibrillation w/ pacemaker status, chronic * Continue home doses of amiodarone, metoprolol, warfarin 5. Anticoagulation w/warfarin due to PE in October 2020, subtherapeutic * INR is 1.7 on admission, subtherapeutic * Daily PT/INR monitoring * Holding warfarin due to INR of 3.5 6. Advanced care planning: * stated the POLST form done in 2020 is still consistent with their wishes which is a DNR/DNI with limited intervention. This was clarified by the admitting provider VTE Prophylaxis: Patient is currently anticoagulated on warfarin. Dispo: Likely [facility] on 07/29. Code status: DNR as discussed with the patient who identifies [place] as?his surrogate and POA. Time Spent With Patient Critical Care time: I spent a total of [] minutes of critical care time on this patient's care today; this time is exclusive of procedural time.
[2022-07-29] MEDS: MAGNESIUM SULFATE 2 GM/50 ML PIGGYBACK IV (08:30)
[2022-07-29] MEDS: INSULIN GLARGINE 100 UNIT/ML 3ML PEN SUBCUT (08:45)
[2022-07-29] MEDS: INSULIN LISPRO 100 UNIT/ML 3ML VIAL SUBCUT (08:45)
[2022-07-29] MEDS: PANTOPRAZOLE DR 40 MG TABLET PO (08:47)
[2022-07-29 08:48] VITALS: BP 149/74; PULSE 73
[2022-07-29] MEDS: carBAMazepine 200 MG TABLET PO (08:48)
[2022-07-29] MEDS: METOPROLOL ER 50 MG TABLET PO (08:48)
[2022-07-29] MEDS: AMIODARONE 200 MG TABLET PO (08:48)
[2022-07-29] MEDS: AMLODIPINE 5 MG TABLET PO (08:48)
[2022-07-29] MEDS: CHOLECALCIFEROL (VITAMIN D3) 1,000 UNIT TABLET 1000 UNIT PO (08:48)
[2022-07-29] MEDS: TAMSULOSIN 0.4 MG CAPSULE PO (08:48)
[2022-07-29 08:50] VITALS: BP 149/74; PULSE 70; RESP 18; TEMP 36.7; O2SAT 90
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
--- NOTE | 2022-07-29 09:23 | OT.IP.TRT ---
Current Diagnoses Pneumonia, unspecified organism (07/24/22) Occupational Therapy Treatment Note M2 OT-IP Current Condition Start: 07/26/22 13:35 Freq: Status: Active Protocol: Document 07/26/22 13:35 [facility] (Rec: 07/26/22 13:57 [facility] [id number]) Occupational Therapy Current Condition Current Condition Evaluation Date 07/26/22 Treatment Diagnosis Acute hypoxic respiratory failure/ PNA Diagnosis Onset Date 07/24/22 M3 OT- IP Subjective and Pain Start: 07/26/22 13:35 Freq: Status: Active Protocol: Document 07/29/22 09:24 [facility] (Rec: 07/29/22 09:34 [facility] [id number]) OT- Subjective Occupational Therapy Visit Type Type Initial Evaluation Visit Start Time 09:00 Visit Stop Time 09:23 Total Visit Minutes 23 Occupational Therapy Visit Comments Patient Comments Pt alert and agreed to try to get up. Patient/Caregiver Goals To go back to skilled rehab. OT Pain Assessment Pain When Pain Assessed At Rest Pain Present Pain Present Pain Reported M4 OT- IP ADL's Start: 07/26/22 13:35 Freq: Status: Active Protocol: Document 07/29/22 09:24 [facility] (Rec: 07/29/22 09:34 [facility] [id number]) OT WLO-[place] General Evaluation Areas Needing Assistance Cutting Food,Opening Containers Comments OT Self-Feeding Comments Pt needing assist for set-up of his tray. OT ADL-Grooming Comments OT Grooming Comments Not performed. OT ADL-Oral Care Comments Oral Care Comments Not performed as having breakfast. OT ADL-Dressing General Eval Lower Body Dressing Ability Total Assistance OT ADL-Toileting General Evaluation Toileting Ability Total Assistance Comments OT Toileting Comments [place] in place. OT ADL-Bathing Comments OT Bathing Comments Sponge bath more appropriate at this time. M5 OT- IP IADL's Start: 07/26/22 13:35 Freq: Status: Active Protocol: Document 07/26/22 13:35 [facility] (Rec: 07/26/22 13:57 [facility] [id number]) OT-Instrumental Activities of Daily Living Deficits IADL Deficits Identified Deficits Home Safety Awareness Home Safety Comments Pt very sleepy at this time. Medication Management Medication Management Caregiver Administers Money Management Money Management Caregiver Provides Assistance Meal Preparation Meal Preparation Caregiver Provides Assist Hardware Trainer Hardware Trainer Caregiver Provides Assist M6 OT- IP Functional Cognition Start: 07/26/22 13:35 Freq: Status: Active Protocol: Document 07/29/22 09:24 [facility] (Rec: 07/29/22 09:34 [facility] [id number]) Cognitive Factors Limiting Selfcare Function Cognitive Ability Level of Alertness Alert Patient Orientation Name,Situation Attention Span Ability Capable of Focused Attention, Unable to Sustain Attention Ability to Follow Commands Able to Follow One Step Commands Cognitive Comments Cognitive Assessment Comments Pt is much more alert today and able to follow commands for ADl and mobility needs. M7 OT- IP Mobility and Balance Start: 07/26/22 13:35 Freq: Status: Active Protocol: Document 07/29/22 09:24 [facility] (Rec: 07/29/22 09:34 [facility] [id number]) OT- Bed Mobility Assessment Supine to Sit Supine to Sit Assist Maximum Assistance,1 Person Assistance Sit to Supine Sit to Supine Assist Maximum Assistance,1 Person Assistance Scooting Scooting to Edge of Bed Maximum Assistance,1 Person Assistance OT-Transfer Assessment Comments Mobility Comments Assist to move his legs to the edge of the bed and get his trunk up with the HOB up. Pt's O2 on 3L at 91% and after sitting up dropped to 84% and able to increased to 87% after several minutes.MAXAX 1 to scoot and get back into supine . OT- Balance Assessment Sitting Balance and Reactions Static Sitting Balance Ability Good M8 OT- IP Objective Assessments Start: 07/26/22 13:35 Freq: Status: Active Protocol: Document 07/26/22 13:35 [facility] (Rec: 07/26/22 13:57 [facility] [id number]) OT Gross Range of Motion Upper Extremity Range of Motion Assessment Bilaterally Impaired OT Strength Upper Extremity Strength Assessment Bilaterally Impaired Comments Strength Comments Pt very tired and not able to raise his BUE over his head, to reassess tomorrow. M9 OT- IP Assessment and Plan Start: 07/26/22 13:35 Freq: Status: Active Protocol: Document 07/29/22 09:24 [facility] (Rec: 07/29/22 09:34 [facility] [id number]) OT Summary Assessment and Plan Potential Rehabilitation Potential Good Analytic Complexity at Evaluation Moderate Summary OT Impairments Pain,Range of Motion,Strength, Balance,Functional Cognition, Functional Mobility,Self- Feeding,Grooming,Dressing, Toileting,Bathing,Toilet Transfers,Shower Transfers, Activity Tolerance Progress Towards Goals Progressing Toward Goals Assessment Summary Pt able to sit at the edge of the bed with good balance and would be appropriate to go back to [facility] via WC transport at this time. Goals Grooming Goal Standby Assistance Dressing Goal Minimal Assistance Toileting Goal Minimal Assistance Bathing Goal Moderate Assistance Toilet Transfer Goal Minimal Assistance Shower Transfer Goal Minimal Assistance Days to Meet Goals 24 Frequency of Treatment Frequency Of Treatment Once a Day Treatment Plan OT Treatment Plan ADL Training,Functional Cognition Training,Functional Mobility,Patient/Family Education,Discharge Planning Other Treatment Recommendations and Next Transfer to [facility] with MOD/MAXAX Treatment Focus 2 Discharge Recommendations OT Discharge Recommendations SNF Rehab
[2022-07-29 10:52] LABS: COVID19 -Nasal RAPID Negative (Negative)
--- NOTE | 2022-07-29 12:03 | PC.NURSE ---
Pt is A&Ox2-3 appears hard of hearing, slightly delayed with responses. He is able to feed himself breakfast, very slowly. He is given Magnesium replacement IV this a.m. He able to take meds in applesauce. VSS, afebrile on 3 LNC. He has course lung sounds throughout and a weak cough. He requires assistance turning in the bed but is able to sit at the edge of the bed and hold himself up. He is able to bear weight and assist with a mod transfer to the w/ today for discharge. His is suportive at bedside. His IJ line is discontinued as well as PIV. Report called to Amanda after COVID results negative. Notified of christensen in place draining clear light yellow urine as well as not havng a BM this hospitalization. He is alert for discharge and he is escorted by w/ to [facility] at approximately 1115 this am, by facility designee. bringing belongings over to [facility].
--- NOTE | 2022-07-29 14:56 | CM.DPNOTE ---
DC Note Coordinating plan yesterday and today w/spouse [place]. The SNfs attempted- [facility], [facility], [facility] Swing beds, [facility] and [facility] were either full or would not be able to accept patient's insurance. Spouse [place] agreeable to [facility] and Ruthie at [facility] secured authorization on patient's behalf. Plan: DC today to [facility] via w/c. Spouse [place] agreeable and thankful for the coordination of plan. ARIEL Pizarro, kindly assisted with coordination, all DC ppk faxed including PASESTEBAN, TODDID PCR updated by ANAND Garcia, report called to [facility] by ANAND Garcia JW
== END 2022-07-29 11:20 | DRG 177 ==
LOC: ED 20:07 → AC 20:30
PROVIDERS: Neuromusculoskeletal Medicine, Sports Medicine; Student in an Organized Health Care Education/Training Program; Admitting Provider Nurse Practitioner Family; Emergency Provider Emergency Medicine; PCP Internal Medicine; Referring Provider Emergency Medicine; Visit Provider Nurse Practitioner Family
DX: J15.6 Pneumonia due to other Gram-negative bacteria (principal); G93.41 Metabolic encephalopathy; J96.01 Acute respiratory failure with hypoxia; I50.42 Chronic combined systolic (congestive) and diastolic (congestive) heart failure; I48.20 Chronic atrial fibrillation, unspecified; I13.0 Hypertensive heart and chronic kidney disease with heart failure and stage 1 through stage 4 chronic kidney disease, or unspecified chronic kidney disease; N17.9 Acute kidney failure, unspecified; E11.65 Type 2 diabetes mellitus with hyperglycemia; R79.1 Abnormal coagulation profile; E11.22 Type 2 diabetes mellitus with diabetic chronic kidney disease; N18.30 Chronic kidney disease, stage 3 unspecified; E86.0 Dehydration; E78.5 Hyperlipidemia, unspecified; Z79.4 Long term (current) use of insulin; Z95.0 Presence of cardiac pacemaker; Z20.822 Contact with and (suspected) exposure to COVID-19; Z66 Do not resuscitate; Z86.711 Personal history of pulmonary embolism; Z79.01 Long term (current) use of anticoagulants
CPT/HCPCS: 0241U; 36415; 36569; 36592; 36600; 70450; 71045; 80048; 80053; 81001; 82306; 82550; 82553; 82805; 82962; 83036; 83605; 83690; 83735; 83880; 84145; 84484; 85025; 85610; 85730; 86140; 87040; 87635; 93005; 93010; 94762; 96365; 96375; 97162; 97166; 97530; 99284; 99285; C9803; J0692; J1642; J1815; J1885; J2310; J3475

== ENCOUNTER 2022-08-05 11:28 | Emergency (ER) | payer OTHER, SELFPAY ==
[2022-07-24 22:19] VITALS: BMI 24.5
[2022-08-05] VITALS (12 sets, daily range): BP systolic 122–152; BP diastolic 58–70; PULSE 60–64; RESP 12–18; TEMP 36.2; O2SAT 95–99; BMI 26.6
--- NOTE | 2022-08-05 11:35 | ED_ITS ---
HPI - Weakness General Chief complaint: Weakness Stated complaint: Weakness Time Seen by Provider: 08/05/22 11:35 Source: patient, EMS, RN notes reviewed and old records reviewed Mode of arrival: EMS Limitations: other History of Present Illness HPI Narrative: This is a 87-year-old male with history of left encephalomalacia, recent respiratory failure secondary to a suspected facility acquired Gram-negative pneumonia, chronic kidney disease, diabetes type 2, CHF, atrial fibrillation with pacemaker in place and anticoagulated on warfarin secondary to PE in 2020. Patient was discharged on 07/29/2022. Patient was reported unresponsive by staff although when EMS arrived he was alert and somewhat conversant. He is reportedly more weak than his normal. Medics state they did have to assist him quite a bit to stand and get to the gurney. Patient is able to tell me his name, he does not have any complaints currently other than weakness. He is reported to have a cough that has been persistent. No reported fevers, patient does not complain of chest pain, shortness of breath, nausea or vomiting, he does not complain of any other GI or urinary symptoms. Patient knows he is at the hospital and [place]. Patient chart is reviewed does appear he is on carbamazepine unclear exactly why from his chart it is also noted on his discharge summary from the that he was DNR/DNI with limited intervention and was discharged to [facility] after receiving cefepime, azithromycin and high-flow and weaned down to 2-3 L nasal cannula and that he did have an episode of somnolence likely due to codeine and responded to Narcan immediately and thereafter only received oxycodone. Patient also had echo on which at that time red EF of 30-35% with significant dyssynchronous contraction pattern and paced rhythm. Could not evaluate fully for wall motion abnormalities but septum severe lead hypokinetic, and worsening of tricuspid regurg insufficiency. Related Data Home Medications Medication Instructions Recorded Confirmed pantoprazole 40 mg tablet,delayed 40 mg PO DAILY 05/06/18 07/24/22 release tamsulosin 0.4 mg capsule 0.4 mg PO QAM 05/06/18 07/24/22 carbamazepine 200 mg tablet 200 mg PO BID 09/07/21 07/24/22 (Tegretol) furosemide 20 mg tablet 20 mg PO DAILY 09/07/21 07/24/22 amlodipine 5 mg tablet 5 mg PO DAILY 12/04/21 07/24/22 atorvastatin 80 mg tablet 80 mg PO BEDTIME 12/04/21 07/24/22 metoprolol succinate 100 mg 50 mg PO QAM 12/04/21 07/24/22 tablet,extended release 24 hr gabapentin 100 mg capsule 300 mg PO QPM 01/29/22 07/24/22 losartan 100 mg tablet 50 mg PO DAILY 01/29/22 07/24/22 amiodarone 200 mg tablet 200 mg PO QAM 07/24/22 07/24/22 insulin glargine 100 unit/mL (3 12 unit SUBCUT QPM 07/24/22 07/24/22 mL) subcutaneous pen (Lantus Solostar U-100 Insulin) spironolactone 25 mg tablet 12.5 mg PO QAM 07/24/22 07/24/22 Previous Rx's Medication Instructions Recorded warfarin 5 mg tablet 10 mg PO MOWEFRSA@1700 #30 tabs 01/30/22 warfarin 5 mg tablet 15 mg PO SUTUTH@1700 #30 tabs 01/30/22 oxycodone-acetaminophen 5 mg-325 1 tab PO Q6HR PRN Pain, Moderate 07/29/22 mg tablet (4-6) #30 tabs Allergies Allergy/AdvReac Type Severity Reaction Status Date / Time tolmetin Allergy Severe Anaphylaxis Verified 01/29/22 08:12 Review of Systems Review of Systems ROS Unobtainable: All systems reviewed & are unremarkable except as noted in HPI and below Patient History Medical History Bleeding ulcer Chronic anticoagulation Chronic gout Chronic kidney disease (CKD) stage G3a/A1, moderately decreased glomerular filtration rate (GFR) between 45-59 mL/min/1.73 square meter and albuminuria creatinine ratio less than 30 mg/g Diabetes type 2, controlled Heart attack Hyperlipidemia Hypertension Left bundle branch block Presence of combination internal cardiac defibrillator (ICD) and pacemaker Right leg weakness 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 HEENT: Atraumatic, pupils are equal round reactive to light, extraocular movements are intact, nares are clear, there is no conjunctival pallor. Throat is clear without any exudates, erythema, tonsillar enlargement or uvular deviation, no facial droop appreciated, no deviation of the tongue HEART: Regular rate and rhythm without murmur, clicks, rubs. No carotid bruits, pulses are equal in upper and lower extremities. Swelling bilateral lower extremities. 2+ pulses bilateral upper and lower extremities. LUNGS:Lungs no wheezes but crackles bilateral bases but greater on the right than left, no rales, chest moves symmetrically, no tachypnea. ABD:bowel sounds normal, soft, non-tender, no guarding, rebound, rigidity, no masses noted, no hepatosplenomegaly :No CVA tenderness MSCL: Non-tender, no muscle atrophy, muscles strength 5/5 upper and lower extremities, full range of motion NEURO:CN 2-12 intact, sensation normal SKIN: No rash, erythema or other skin changes noted. Initial Vital Signs Initial Vital Signs: Vital Signs Temperature 97.1 F L 08/05/22 11:25 Pulse Rate 61 08/05/22 11:25 Respiratory Rate 18 08/05/22 11:25 Blood Pressure 152/70 H 08/05/22 11:25 Pulse Oximetry 99 08/05/22 11:25 Oxygen Delivery Method 08/05/22 11:25 Oxygen Flow Rate 3 08/05/22 11:25 Course Orders Ordered: Discontinued Medications Sodium Chloride (Normal Saline 0.9%) 1,000 mls @ 1,000 mls/hr IV BOLUS ONE Stop: 08/05/22 15:13 Last Infusion: 08/05/22 15:08 Dose: 0 mls/hr Documented By: Admin: 08/05/22 14:32 Dose: 1,000 mls/hr Documented By: BHAVIN Vital Signs Vital signs: Vital Signs - 8 hr 08/05/22 11:25 08/05/22 11:33 08/05/22 11:35 Temperature 97.1 F L Pulse Rate 61 64 Respiratory Rate 18 Blood Pressure 152/70 H 152/70 H Pulse Oximetry 99 95 Oxygen Delivery Method Nasal Cannula Oxygen Flow Rate 3 08/05/22 11:35 08/05/22 12:00 08/05/22 12:01 Temperature Pulse Rate 62 62 62 Respiratory Rate 12 Blood Pressure Pulse Oximetry 96 98 98 Oxygen Delivery Method Oxygen Flow Rate 08/05/22 12:01 08/05/22 12:30 08/05/22 12:31 Temperature Pulse Rate 62 Respiratory Rate 15 Blood Pressure 122/58 L 138/65 Pulse Oximetry 98 97 Oxygen Delivery Method Oxygen Flow Rate 08/05/22 12:31 08/05/22 13:00 08/05/22 13:06 Temperature Pulse Rate 62 60 Respiratory Rate 15 15 Blood Pressure 146/67 H Pulse Oximetry 97 98 Oxygen Delivery Method Oxygen Flow Rate 08/05/22 13:06 08/05/22 13:30 08/05/22 13:30 Temperature Pulse Rate 60 61 Respiratory Rate 13 13 Blood Pressure 143/67 H Pulse Oximetry 98 98 Oxygen Delivery Method Oxygen Flow Rate 08/05/22 14:00 08/05/22 14:00 08/05/22 14:30 Temperature Pulse Rate 60 Respiratory Rate 13 Blood Pressure 141/67 H 150/68 H Pulse Oximetry 98 Oxygen Delivery Method Oxygen Flow Rate 08/05/22 14:30 Temperature Pulse Rate 60 Respiratory Rate 14 Blood Pressure Pulse Oximetry 97 Oxygen Delivery Method Oxygen Flow Rate MDM - Weakness Lab Data Result diagrams: 08/05/22 12:30 08/05/22 12:30 Labs: Lab Results 08/05/22 08/05/22 08/05/22 Range/Units 11:37 12:01 12:30 WBC 11.0 (4.5-11.0) X10^3/uL RBC 3.46 L (4.5-5.9) X10^6/uL Hgb 10.5 L (13.5-17.5) g/dL Hct 32.7 L (41-53) % MCV 94.5 (80-100) fL MCH 30.3 (26-34) PG MCHC 32.1 (30-36) % RDW 13.9 (11.6-14.8) % Plt Count 387 (150-400) X10^3/uL Neut % (Auto) 85.6 H (50-75) % Lymph % (Auto) 8.5 L (25-40) % [place] % (Auto) 4.8 (3-14) % Eos % (Auto) 0.9 L (2-4) % Baso % (Auto) 0.2 (0-2) % Neut # (Auto) 9400 H (5637-6792) /uL Lymph # (Auto) 900 L (0263-2201) /uL [place] # (Auto) 500 (0-900) /uL Eos # (Auto) 100 (0-450) /uL Baso # (Auto) 0 (0-100) /uL PT (10.1-12.7) SECONDS INR (0.9-1.3) APTT (26-36) SECONDS Sodium (137-145) mmol/L Potassium (3.4-5.1) mmol/L Chloride (98-107) mmol/L Carbon Dioxide (22-32) mmol/L BUN (9-20) mg/dL Creatinine (0.66-1.25) mg/dL Estimated GFR (>60) mL/min BUN/Creatinine Ratio (6-22) Glucose (80-110) mg/dL Lactate (0.7-2.1) mmol/L Calcium (8.4-10.2) mg/dL Total Bilirubin (0.2-1.3) mg/dL AST (17-59) IU/L ALT (<50) IU/L Alkaline Phosphatase (38-126) U/L Total Creatine Kinase (55-170) U/L CK-MB (CK-2) CK-MB (CK-2) Rel Index Troponin I (0.01-0.034) ng/mL NT-Pro-B Natriuret Pep (<450) pg/mL Total Protein (6.3-8.2) g/dL Albumin (3.5-5.0) g/dL Globulin (1.7-4.1) g/dL Albumin/Globulin Ratio (1.0-2.8) Lipase (23-300) U/L Procalcitonin (<0.5) ng/mL Urine Color Yellow Urine Appearance Clear Urine pH 5.0 (4.5-8.0) Ur Specific Corder 1.020 (1.000-1.035) Urine Protein Trace H (Negative) Urine Glucose (UA) Trace H (Negative) g/dL Urine Ketones Negative (NEGATIVE) Urine Occult Blood 1+ H (Negative) Urine Nitrate Negative (Negative) Urine Bilirubin Negative (NEGATIVE) Urine Urobilinogen 0.2 (0.2) E.U./dL Ur Leukocyte Esterase Negative (NEGATIVE) Urine RBC 5-10/hpf H (0-5/HPF) Urine WBC None seen (0-5/HPF) Urine Bacteria None seen (None) Hyaline Casts 1-5/lpf (None) Ur Culture Indicated? Cult not indicated SARS-CoV-2 (PCR) Negative (Negative) Influenza A (RT-PCR) Flu a negative (NEGATIVE) Influenza B (RT-PCR) Flu b negative (NEGATIVE) RSV (PCR) Negative (Negative) 08/05/22 08/05/22 08/05/22 Range/Units 12:30 12:30 12:30 WBC (4.5-11.0) X10^3/uL RBC (4.5-5.9) X10^6/uL Hgb (13.5-17.5) g/dL Hct (41-53) % MCV (80-100) fL MCH (26-34) PG MCHC (30-36) % RDW (11.6-14.8) % Plt Count (150-400) X10^3/uL Neut % (Auto) (50-75) % Lymph % (Auto) (25-40) % [place] % (Auto) (3-14) % Eos % (Auto) (2-4) % Baso % (Auto) (0-2) % Neut # (Auto) (5736-7531) /uL Lymph # (Auto) (2443-8046) /uL [place] # (Auto) (0-900) /uL Eos # (Auto) (0-450) /uL Baso # (Auto) (0-100) /uL PT 27.3 H D (10.1-12.7) SECONDS INR 2.4 H (0.9-1.3) APTT 35 (26-36) SECONDS Sodium 140 (137-145) mmol/L Potassium 4.4 (3.4-5.1) mmol/L Chloride 96 L (98-107) mmol/L Carbon Dioxide 34 H (22-32) mmol/L BUN 18 (9-20) mg/dL Creatinine 1.51 H (0.66-1.25) mg/dL Estimated GFR 45 L (>60) mL/min BUN/Creatinine Ratio 11.9 (6-22) Glucose 179 H (80-110) mg/dL Lactate (0.7-2.1) mmol/L Calcium 8.8 (8.4-10.2) mg/dL Total Bilirubin 0.3 (0.2-1.3) mg/dL AST 39 (17-59) IU/L ALT 67 H (<50) IU/L Alkaline Phosphatase 104 (38-126) U/L Total Creatine Kinase 36 L (55-170) U/L CK-MB (CK-2) TNP CK-MB (CK-2) Rel Index TNP Troponin I < 0.012 (0.01-0.034) ng/mL NT-Pro-B Natriuret Pep 950 H (<450) pg/mL Total Protein 7.1 (6.3-8.2) g/dL Albumin 3.5 (3.5-5.0) g/dL Globulin 3.6 (1.7-4.1) g/dL Albumin/Globulin Ratio 1.0 (1.0-2.8) Lipase 46 (23-300) U/L Procalcitonin 0.08 (<0.5) ng/mL Urine Color Urine Appearance Urine pH (4.5-8.0) Ur Specific Corder (1.000-1.035) Urine Protein (Negative) Urine Glucose (UA) (Negative) g/dL Urine Ketones (NEGATIVE) Urine Occult Blood (Negative) Urine Nitrate (Negative) Urine Bilirubin (NEGATIVE) Urine Urobilinogen (0.2) E.U./dL Ur Leukocyte Esterase (NEGATIVE) Urine RBC (0-5/HPF) Urine WBC (0-5/HPF) Urine Bacteria (None) Hyaline Casts (None) Ur Culture Indicated? SARS-CoV-2 (PCR) (Negative) Influenza A (RT-PCR) (NEGATIVE) Influenza B (RT-PCR) (NEGATIVE) RSV (PCR) (Negative) 08/05/22 Range/Units 12:30 WBC (4.5-11.0) X10^3/uL RBC (4.5-5.9) X10^6/uL Hgb (13.5-17.5) g/dL Hct (41-53) % MCV (80-100) fL MCH (26-34) PG MCHC (30-36) % RDW (11.6-14.8) % Plt Count (150-400) X10^3/uL Neut % (Auto) (50-75) % Lymph % (Auto) (25-40) % [place] % (Auto) (3-14) % Eos % (Auto) (2-4) % Baso % (Auto) (0-2) % Neut # (Auto) (4805-7059) /uL Lymph # (Auto) (3803-8896) /uL [place] # (Auto) (0-900) /uL Eos # (Auto) (0-450) /uL Baso # (Auto) (0-100) /uL PT (10.1-12.7) SECONDS INR (0.9-1.3) APTT (26-36) SECONDS Sodium (137-145) mmol/L Potassium (3.4-5.1) mmol/L Chloride (98-107) mmol/L Carbon Dioxide (22-32) mmol/L BUN (9-20) mg/dL Creatinine (0.66-1.25) mg/dL Estimated GFR (>60) mL/min BUN/Creatinine Ratio (6-22) Glucose (80-110) mg/dL Lactate 1.7 (0.7-2.1) mmol/L Calcium (8.4-10.2) mg/dL Total Bilirubin (0.2-1.3) mg/dL AST (17-59) IU/L ALT (<50) IU/L Alkaline Phosphatase (38-126) U/L Total Creatine Kinase (55-170) U/L CK-MB (CK-2) CK-MB (CK-2) Rel Index Troponin I (0.01-0.034) ng/mL NT-Pro-B Natriuret Pep (<450) pg/mL Total Protein (6.3-8.2) g/dL Albumin (3.5-5.0) g/dL Globulin (1.7-4.1) g/dL Albumin/Globulin Ratio (1.0-2.8) Lipase (23-300) U/L Procalcitonin (<0.5) ng/mL Urine Color Urine Appearance Urine pH (4.5-8.0) Ur Specific Corder (1.000-1.035) Urine Protein (Negative) Urine Glucose (UA) (Negative) g/dL Urine Ketones (NEGATIVE) Urine Occult Blood (Negative) Urine Nitrate (Negative) Urine Bilirubin (NEGATIVE) Urine Urobilinogen (0.2) E.U./dL Ur Leukocyte Esterase (NEGATIVE) Urine RBC (0-5/HPF) Urine WBC (0-5/HPF) Urine Bacteria (None) Hyaline Casts (None) Ur Culture Indicated? SARS-CoV-2 (PCR) (Negative) Influenza A (RT-PCR) (NEGATIVE) Influenza B (RT-PCR) (NEGATIVE) RSV (PCR) (Negative) ECG Data Attestation: I personally reviewed and interpreted this ECG as follows: Prior ECG tracings: available for review Interpretation: You have a atrial sensed ventricular paced rhythm rate of 62 CA 150 QRS of 162 and QTC of 507. No acute ST elevation or depression appreciated patient has prior from 07/24/2022 which appears similar. MDM Narrative Medical decision making narrative: This is an 87-year-old male who presents with reported altered mental status although per EMS he was not altered for them, his states he is at his baseline she states sometimes when he eats dry you will be little bit more weak. His creatinine is elevated today his BUN is not particularly elevated, BNP slightly elevated, patient has cough but does not have a worsening chest x-ray he is not having significantly increased O2 requirements he was at 2 L he is on 3 L nasal cannula here at 99-97%. Patient does not have any changes consistent with worsening infection, severe CHF changes and after discussion with patient and they would like to return to the facility. Will give a L of fluids to see if this is helpful and patient is to have his labs rechecked. His 's right adamant that he is DNR/DNI and she states she is filled out his POLST form several times although the 1 he arrived with today from the 12th stated full code. We did rectify this and fill out a new form to reflect both the patient and the 's wishes which the patient was part of this discussion. She also expresses that she is quite frustrated that he is being transported without them contacting her 1st and we encouraged her to talk with the staff to make sure that the family and her wishes are being respected. Discharge Plan Departure Patient Disposition: Home Clinical Impression: Creatinine elevation Activity Restrictions/Additional Instructions: Follow-up this week for recheck. I would recommend having your labs rechecked on Monday. Your creatinine is elevated. We did go through your POLST form to reflect your DNR/DNI status with limited interventions to reflect you and your 's goals. Please return for fevers, changes in mental status, new chest pain, shortness of breath increasing oxygen requirements, new swelling in extremities or other new or concerning changes. Prescriptions: No Action furosemide 20 mg Tablet 20 mg PO DAILY carbamazepine [Tegretol] 200 mg Tablet 200 mg PO BID amiodarone 200 mg tablet 200 mg PO QAM spironolactone 25 mg tablet 12.5 mg PO QAM insulin glargine [Lantus Solostar U-100 Insulin] 100 unit/mL (3 mL) insulin pen 12 unit SUBCUT QPM oxycodone-acetaminophen 5-325 mg Tablet 1 tab PO Q6HR PRN (Reason: Pain, Moderate (4-6)) Qty: 30 0RF pantoprazole 40 mg tablet,delayed release (DR/EC) 40 mg PO DAILY tamsulosin 0.4 mg capsule 0.4 mg PO QAM atorvastatin 80 mg Tablet 80 mg PO BEDTIME metoprolol succinate 100 mg Tablet Extended Release 24 Hr 50 mg PO QAM amlodipine 5 mg Tablet 5 mg PO DAILY losartan 100 mg tablet 50 mg PO DAILY gabapentin 100 mg capsule 300 mg PO QPM warfarin 5 mg Tablet 10 mg PO MOWEFRSA@1700 Qty: 30 0RF warfarin 5 mg Tablet 15 mg PO SUTUTH@1700 Qty: 30 0RF Referrals: Trinidad Garcia MD [Primary Care Provider] - Stand Alone Forms: Patient Portal/API
--- NOTE | 2022-08-05 11:35 | DI.CT.S_ITS ---
PROCEDURE: CT HEAD/BRAIN WO CON INDICATIONS: weakness, in longterm. reported altered by staff. TECHNIQUE: Noncontrast 4.5 mm thick angled axial sections acquired from the foramen magnum to the vertex, with coronal and sagittal reformats. For radiation dose reduction, the following was used: automated exposure control, adjustment of mA and/or kV according to patient size. COMPARISON: [facility], CT, CT HEAD/BRAIN WO CON, 12/03/2021, 22:49. [facility], CT, CT HEAD/BRAIN WO CON, 01/29/2022, 7:04. [facility], CT, CT HEAD/BRAIN WO CON, 07/24/2022, 19:08. FINDINGS: Image quality: Excellent. CSF spaces: Basal cisterns are patent. No extra-axial fluid collections. The ventricles are symmetric in size and shape. Brain: No intracranial bleeds or masses. There is cerebral volume loss for age, with resultant ventricular and sulcal prominence. There are periventricular and deep white matter chronic small vessel ischemic changes. Focal volume loss and encephalomalacia can be seen involving the left posterior lateral cerebellum, which is stable from the prior. There is intracranial internal carotid artery atherosclerosis. Note is made of a cavum septum pellucidum. When discovered in isolation, this is considered to be a developmental variant of no clinical consequence. Skull and face: Left posterior inferior craniotomy change is seen. Calvarium and visualized facial bones appear intact, without suspicious lesions. Sinuses: There is at least moderate mucosal thickening seen within the visualized maxillary sinuses. There is subtotal opacification seen of the sphenoid sinuses. Mild mucosal thickening is seen within the frontal sinuses and the ethmoid air cells. Prior postoperative change can be seen, with bilateral antrectomy me, with removal of portions of the ethmoid air cell septations. IMPRESSION: No acute intracranial process is seen. Focal volume loss involving the left posterior lateral cerebellum, with overlying craniotomy changes. 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 Prior paranasal sinus surgery is also seen. Dictated by: Yan Marin M.D. on 08/05/2022 at 11:26 Approved by: Yan Marin M.D. on 08/05/2022 at 11:29
--- NOTE | 2022-08-05 11:35 | DI.RAD.S_ITS ---
PROCEDURE: XR CHEST 1V INDICATIONS: weakness, increased O2 TECHNIQUE: One view of the chest was acquired. COMPARISON: [facility], CR, XR CHEST 1V, 07/24/2022, 19:33. FINDINGS: Surgical changes and devices: Pacemaker, remote midline sternotomy. Lungs and pleura: Submaximal inspiration. Patchy bibasilar atelectasis. No pleural effusions or pneumothorax. Mediastinum: Mediastinal contours appear normal. Heart size is normal. Bones and chest wall: No suspicious bony lesions. Overlying soft tissues appear unremarkable. IMPRESSION: Submaximal inspiration. Patchy bibasilar atelectasis. Dictated by: Tom Kamara M.D. on 08/05/2022 at 12:20 Approved by: Tom Kamara M.D. on 08/05/2022 at 12:32
[2022-08-05 11:55] LABS: Appearance Urine UA CLEAR; Bilirubin Urine UA NEGATIVE (NEGATIVE); Color Urine UA YELLOW; Glucose Urine UA TRACE g/dL (Negative); Ketones Urine UA NEGATIVE (NEGATIVE); Leukocyte Esterase Urine UA NEGATIVE (NEGATIVE); Nitrite Urine UA NEGATIVE (Negative); Occult Blood Urine UA 1+ (Negative); Protein Urine UA TRACE (Negative); Urobilinogen Urine UA 0.2 E.U./dL (0.2)
[2022-08-05 11:59] LABS: Bacteria Urine None Seen; Culture Indicated Urine Cult Not Indicated; Hyaline Casts Urine 1-5/LPF; RBC Urine 5-10/HPF (0-5/HPF); WBC Urine None Seen (0-5/HPF)
[2022-08-05 12:39] LABS: Add Manual Diff / Slide Review NO; Basophils Absolute Auto 0 /uL (0-100); Basophils Percent Auto 0.2 % (0-2); Eosinophils Absolute Auto 100 /uL (0-450); Eosinophils Percent Auto 0.9 % (2-4); Hematocrit 32.7 % (41-53); Hemoglobin 10.5 g/dL (13.5-17.5); Lymphocytes Absolute Auto 900 /uL (1100-4500); Lymphocytes Percent Auto 8.5 % (25-40); Mean Corpuscular HGB Conc 32.1 % (30-36); Mean Corpuscular Hemoglobin 30.3 PG (26-34); Mean Corpuscular Volume 94.5 fL (80-100); Monocytes Absolute Auto 500 /uL (0-900); Monocytes Percent Auto 4.8 % (3-14); Neutrophils Absolute Auto 9400 /uL (1500-7000); Neutrophils Percent Auto 85.6 % (50-75); Platelet Count 387 X10^3/uL (150-400); Red Blood Cell Count 3.46 X10^6/uL (4.5-5.9); Red Cell Distribution Width 13.9 % (11.6-14.8)
[2022-08-05 12:45] LABS: COVID-19 CEPHEID 4-PLEX PCR Negative (Negative); Influenza A - CEPHEID Flu A NEGATIVE (NEGATIVE); Influenza B - CEPHEID Flu B NEGATIVE (NEGATIVE); Respiratory Syncytial Virus Negative (Negative)
[2022-08-05 12:47] LABS: INR 2.4 (0.9-1.3); Prothrombin Time 27.3 SECONDS (10.1-12.7)
[2022-08-05 12:50] LABS: PTT Partial Thromboplastin Tim 35 SECONDS (26-36)
[2022-08-05 12:53] LABS: Alanine Aminotransferase 67 IU/L (<50); Alkaline Phosphatase 104 U/L (38-126); Aspartate Aminotransferase 39 IU/L (17-59); BUN Creatinine Ratio 11.9 (6-22); Bilirubin Total 0.3 mg/dL (0.2-1.3); Blood Urea Nitrogen 18 mg/dL (9-20); Calcium 8.8 mg/dL (8.4-10.2); Carbon Dioxide 34 mmol/L (22-32); Chloride 96 mmol/L (98-107); Creatine Kinase 36 U/L (55-170); Estimated Glomerular Filt Rate 45 mL/min (>60); Glucose 179 mg/dL (80-110); HEMOLYSIS < 15 (0-50); Lactate (Lactic Acid) 1.7 mmol/L (0.7-2.1); Lipase 46 U/L (23-300); Potassium 4.4 mmol/L (3.4-5.1); Sodium 140 mmol/L (137-145); Total Protein 7.1 g/dL (6.3-8.2)
[2022-08-05 13:04] LABS: NT-proBNP (BNP-Adult 18+) 950 pg/mL (<450)
[2022-08-05 13:05] LABS: Troponin I < 0.012 ng/mL (0.01-0.034)
[2022-08-05 13:10] LABS: Procalcitonin 0.08 ng/mL (<0.5)
[2022-08-05] MEDS: SODIUM CHLORIDE 0.9% 1,000 ML 1000 ML IV (14:32)
[2022-08-05 16:14] LABS: Albumin 3.5 g/dL (3.5-5.0); Globulin 3.6 g/dL (1.7-4.1)
== END 2022-08-05 15:15 | disposition home or self-care (01) ==
PROVIDERS: Emergency Provider Emergency Medicine; PCP Internal Medicine
DX: R79.89 Other specified abnormal findings of blood chemistry (principal); I48.91 Unspecified atrial fibrillation; Z79.01 Long term (current) use of anticoagulants; Z95.0 Presence of cardiac pacemaker; Z20.822 Contact with and (suspected) exposure to COVID-19
CPT/HCPCS: 0241U; 36415; 70450; 71045; 80053; 81001; 82550; 83605; 83690; 83880; 84145; 84484; 85025; 85610; 85730; 87040; 93005; 96360; 99284; 99285

== ENCOUNTER 2022-08-20 06:49 | Emergency (ER) | payer OTHER, SELFPAY ==
[2022-07-24 22:19] VITALS: BMI 24.5
[2022-08-20] VITALS (24 sets, daily range): BP systolic 145–167; BP diastolic 61–78; PULSE 83–91; RESP 15–25; TEMP 36.3; O2SAT 90–97
--- NOTE | 2022-08-20 07:04 | DI.RAD.S_ITS ---
PROCEDURE: XR CHEST 1V INDICATIONS: Shortness of breath TECHNIQUE: One view of the chest was acquired. COMPARISON: [facility], CR, XR CHEST 1V, 07/24/2022, 19:33. [facility], CR, XR CHEST 1 VIEW, 07/12/2022, 12:23. [facility], CR, XR CHEST 2V, 04/26/2022, 15:26. [facility], CR, XR CHEST 1V, 08/05/2022, 11:42. FINDINGS: Surgical changes and devices: Left chest wall pacer. Status post median sternotomy. Lungs and pleura: Patchy opacities in the right lower lung and left mid/lower lung are unchanged compared to prior x-ray. There is a masslike appearance of right inferior hilum suspicious for lymph nodes which was not seen on 07/12/2022. Mediastinum: The aorta is tortuous and calcified. Heart is enlarged. Bones and chest wall: No suspicious bony lesions. Overlying soft tissues appear unremarkable. IMPRESSION: 1. Patchy opacities in the left mid/lower lung and right lower lung. 2. Masslike appearance of right inferior hilum suspicious for mass or lymph nodes. Recommend CT of the chest. Dictated by: Bijan Moe M.D. on 08/20/2022 at 7:40 Approved by: Bijan Moe M.D. on 08/20/2022 at 7:43
--- NOTE | 2022-08-20 07:22 | ED_ITS ---
HPI - General Adult General Chief complaint: Shortness of Breath/Dyspnea Stated complaint: Pneumonia/Hallucinations x2days Time Seen by Provider: 08/20/22 07:08 Source: patient, family and EMS Mode of arrival: EMS Limitations: no limitations History of Present Illness HPI narrative: Patient is an 87-year-old male. Does have a POLST form at bedside that does show DNR with limited interventions. He is coming from home by EMS. Over the past several weeks/month he has been in and out of the hospital for various reasons to include atrial fibrillation, need for oxygen and also pneumonia. He most recently spent several weeks in a rehab facility but has been home for the past 3-4 days. He is on a new medication for issues that he is having with pain in his eyes. His states that it is amitriptyline. Yesterday and last evening patient's 's noticed that he started to sound very wet with his breathing. She was concerned that maybe he was having pneumonia again. He is on home oxygen at 2 L at baseline. She called the paramedics. Apparently his oxygen was increased from 2 L to 3 L. here in the emergency department the patient can shake his head yes or no however when he talks he is very hard to understand. He did express that he was not having any problems breathing was not having chest pain was not having any nausea vomiting was not having abdominal pain. He states that his of the pain is ?in my eyes? which is not new. Patient's states that dehydration has been an issue for him. Related Data Home Medications Medication Instructions Recorded Confirmed pantoprazole 40 mg tablet,delayed 40 mg PO DAILY 05/06/18 08/20/22 release tamsulosin 0.4 mg capsule 0.4 mg PO QAM 05/06/18 08/20/22 carbamazepine 200 mg tablet 200 mg PO BID 09/07/21 08/20/22 (Tegretol) furosemide 20 mg tablet 20 mg PO DAILY 09/07/21 08/20/22 amlodipine 5 mg tablet 5 mg PO DAILY 12/04/21 08/20/22 atorvastatin 80 mg tablet 80 mg PO BEDTIME 12/04/21 08/20/22 metoprolol succinate 100 mg 50 mg PO QAM 12/04/21 08/20/22 tablet,extended release 24 hr gabapentin 100 mg capsule 300 mg PO QPM 01/29/22 08/20/22 losartan 100 mg tablet 50 mg PO DAILY 01/29/22 08/20/22 amiodarone 200 mg tablet 200 mg PO QAM 07/24/22 08/20/22 insulin glargine 100 unit/mL (3 12 unit SUBCUT QPM 07/24/22 08/20/22 mL) subcutaneous pen (Lantus Solostar U-100 Insulin) spironolactone 25 mg tablet 12.5 mg PO QAM 07/24/22 08/20/22 Previous Rx's Medication Instructions Recorded warfarin 5 mg tablet 10 mg PO MOWEFRSA@1700 #30 tabs 01/30/22 warfarin 5 mg tablet 15 mg PO SUTUTH@1700 #30 tabs 01/30/22 oxycodone-acetaminophen 5 mg-325 1 tab PO Q6HR PRN Pain, Moderate 07/29/22 mg tablet (4-6) #30 tabs Allergies Allergy/AdvReac Type Severity Reaction Status Date / Time tolmetin Allergy Severe Anaphylaxis Verified 01/29/22 08:12 Review of Systems Constitutional Constitutional: Reports system reviewed and no additional complaints, except as documented Eyes Eyes: Reports system reviewed and no additional complaints, except as documented Cardiovascular Cardiovascular: Reports system reviewed and no additional complaints, except as documented Respiratory Respiratory: Reports system reviewed and no additional complaints, except as documented Gastrointestinal Gastrointestinal: Reports system reviewed and no additional complaints, except as documented Integumentary/Breasts Skin/Breast: Reports system reviewed and no additional complaints, except as documented Neurologic Neurologic: Reports system reviewed and no additional complaints, except as documented Hematologic/Lymphatic On Anticoagulants: Yes Patient History Medical History Bleeding ulcer Chronic anticoagulation Chronic gout Chronic kidney disease (CKD) stage G3a/A1, moderately decreased glomerular filtration rate (GFR) between 45-59 mL/min/1.73 square meter and albuminuria creatinine ratio less than 30 mg/g Diabetes type 2, controlled Heart attack Hyperlipidemia Hypertension Left bundle branch block Presence of combination internal cardiac defibrillator (ICD) and pacemaker Right leg weakness 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 Thyroid nodule Surgical History H/O sinus surgery History of brain surgery History of cholecystectomy S/P CABG x 4 Social History household members: spouse Smoking Status: Never smoker alcohol intake: never Smoking Status: Never smoker alcohol intake frequency: 0-2 drinks per day Substance Use Type: does not use Exam Initial Vital Signs Initial Vital Signs: Vital Signs Temperature 97.3 F L 08/20/22 07:05 Pulse Rate 84 08/20/22 07:05 Respiratory Rate 22 08/20/22 07:05 Blood Pressure 151/74 H 08/20/22 07:05 Pulse Oximetry 96 08/20/22 07:05 Oxygen Delivery Method 08/20/22 07:05 Oxygen Flow Rate 3 08/20/22 07:05 Const General: No in distress HENMT Head: normal to inspection and normocephalic Resp Effort & Inspection: normal respiratory effort, no respiratory distress, no retractions and tachypneic Auscultation: rales and rhonchi Cardio Rate: regular rate Rhythm: regular rhythm GI Inspection: normal to inspection Skin General: no rashes or lesions noted Neuro General: patient alert, patient awake and moves all extremities Extrem General: No edema Psych Appearance: grossly normal Course Orders Ordered: ED Orders 08/20/22 07:04 XR chest 1V Stat Measure peak expiratory flow ONCE RT Consult Eval and Treat NOW 08/20/22 07:35 Respiratory Panel (Film Array) Stat 08/20/22 07:39 Complete Blood Count AUTO DIFF Stat Comprehensive Metabolic Panel Stat Lactate (Lactic Acid) Stat NT-proBNP (BNP-Adult 18+) Stat Prothrombin Time INR Stat Troponin I Stat 08/20/22 08:01 CT chest w con Stat 08/20/22 09:30 EKG-12 Lead Stat 08/20/22 12:56 Urine Culture Stat Urine Microscopic Stat Discontinued Medications Sodium Chloride (Normal Saline 0.9%) 1,000 mls @ 250 mls/hr IV CONT ANDREI Last Infusion: 08/20/22 14:37 Dose: 0 mls/hr Documented By: Admin: 08/20/22 12:31 Dose: 250 mls/hr Documented By: Infusion: 08/20/22 11:59 Dose: 250 mls/hr Documented By: Admin: 08/20/22 07:59 Dose: 250 mls/hr Documented By: FERMÍN Vital Signs Vital signs: Vital Signs - 8 hr 08/20/22 08:15 08/20/22 09:29 08/20/22 08:30 Pulse Rate 86 87 84 Respiratory Rate 25 H Blood Pressure 167/78 H Pulse Oximetry 94 93 96 Oxygen Delivery Method Nasal Cannula Nasal Cannula Oxygen Flow Rate 5 2 08/20/22 09:00 08/20/22 09:30 08/20/22 09:30 Pulse Rate 86 88 Respiratory Rate Blood Pressure 167/78 H Pulse Oximetry 91 94 Oxygen Delivery Method Nasal Cannula Nasal Cannula Oxygen Flow Rate 5 5 08/20/22 09:58 08/20/22 10:00 08/20/22 10:30 Pulse Rate 90 87 Respiratory Rate 25 H 19 Blood Pressure Pulse Oximetry 92 90 L 92 Oxygen Delivery Method Nasal Cannula Oxygen Flow Rate 4 08/20/22 11:00 08/20/22 11:30 08/20/22 12:00 Pulse Rate 86 91 H 90 Respiratory Rate 22 20 19 Blood Pressure Pulse Oximetry 94 93 92 Oxygen Delivery Method Nasal Cannula Oxygen Flow Rate 4 08/20/22 12:30 08/20/22 12:45 08/20/22 13:00 Pulse Rate 85 86 84 Respiratory Rate 17 18 16 Blood Pressure Pulse Oximetry 95 93 93 Oxygen Delivery Method Oxygen Flow Rate 08/20/22 13:15 08/20/22 13:22 08/20/22 13:22 Pulse Rate 83 84 Respiratory Rate 15 16 Blood Pressure 166/74 H Pulse Oximetry 97 95 Oxygen Delivery Method Oxygen Flow Rate 08/20/22 13:30 08/20/22 13:30 08/20/22 13:45 Pulse Rate 83 83 Respiratory Rate 22 24 Blood Pressure 145/61 H Pulse Oximetry 95 94 Oxygen Delivery Method Oxygen Flow Rate 08/20/22 14:00 08/20/22 14:00 08/20/22 14:15 Pulse Rate 85 84 Respiratory Rate 17 19 Blood Pressure 156/72 H Pulse Oximetry 97 Oxygen Delivery Method Oxygen Flow Rate 08/20/22 14:30 08/20/22 14:30 08/20/22 14:45 Pulse Rate 85 84 Respiratory Rate 17 17 Blood Pressure 155/71 H Pulse Oximetry 93 91 Oxygen Delivery Method Nasal Cannula Oxygen Flow Rate 4 08/20/22 15:00 08/20/22 15:00 Pulse Rate 85 Respiratory Rate 17 Blood Pressure 150/70 H Pulse Oximetry 92 Oxygen Delivery Method Oxygen Flow Rate Medical Decision Making Medical Records Medical records reviewed: Yes I reviewed the patient's medical records. Lab Data Lab results reviewed: Yes I reviewed the patient's lab results. 08/20/22 07:39 08/20/22 07:39 Labs: Lab Results 08/20/22 08/20/22 08/20/22 Range/Units 07:35 07:39 07:39 WBC 12.0 H (4.5-11.0) X10^3/uL RBC 3.89 L (4.5-5.9) X10^6/uL Hgb 11.7 L (13.5-17.5) g/dL Hct 36.1 L (41-53) % MCV 92.7 (80-100) fL MCH 30.1 (26-34) PG MCHC 32.4 (30-36) % RDW 14.4 (11.6-14.8) % Plt Count 272 (150-400) X10^3/uL Neut % (Auto) 78.8 H (50-75) % Lymph % (Auto) 9.4 L (25-40) % Amite % (Auto) 10.6 (3-14) % Eos % (Auto) 0.9 L (2-4) % Baso % (Auto) 0.3 (0-2) % Neut # (Auto) 9400 H (2188-4022) /uL Lymph # (Auto) 1100 (5084-0277) /uL Amite # (Auto) 1300 H (0-900) /uL Eos # (Auto) 100 (0-450) /uL Baso # (Auto) 0 (0-100) /uL PT 22.0 H (10.1-12.7) SECONDS INR 1.9 H (0.9-1.3) Sodium (137-145) mmol/L Potassium (3.4-5.1) mmol/L Chloride (98-107) mmol/L Carbon Dioxide (22-32) mmol/L BUN (9-20) mg/dL Creatinine (0.66-1.25) mg/dL Estimated GFR (>60) mL/min BUN/Creatinine Ratio (6-22) Glucose (80-110) mg/dL Lactate (0.7-2.1) mmol/L Calcium (8.4-10.2) mg/dL Total Bilirubin (0.2-1.3) mg/dL AST (17-59) IU/L ALT (<50) IU/L Alkaline Phosphatase (38-126) U/L Troponin I (0.01-0.034) ng/mL NT-Pro-B Natriuret Pep (<450) pg/mL Total Protein (6.3-8.2) g/dL Albumin (3.5-5.0) g/dL Globulin (1.7-4.1) g/dL Albumin/Globulin Ratio (1.0-2.8) Urine RBC (0-5/HPF) Urine WBC (0-5/HPF) Urine Bacteria (None) Ur Culture Indicated? Chlamy pneumoniae PCR Not detected (Not Detect) Adenovirus (PCR) Not detected (Not Detect) B. pertussis DNA (PCR) Not detected (Not Detecte) B.parapertussis DNA PCR Not detected (Not Detecte) Coronavirus OC43 (PCR) Not detected (Not Detect) Coronavirus HKU1 (PCR) Not detected (Not Detect) Coronavirus 229E (PCR) Not detected (Not Detect) SARS-CoV-2 (PCR) Not detected (Not Detecte) Coronavirus NL63 (PCR) Not detected (Not Detect) Human Metapneumovir PCR Not detected (Not Detect) Influenza Type A (PCR) Not detected (Not Detect) Influenza Type B (PCR) Not detected (Not Detect) M. pneumoniae (PCR) Not detected (Not Detect) Parainfluenza 1 (PCR) Not detected (Not Detect) Parainfluenza 2 (PCR) Not detected (Not Detect) Parainfluenza 3 (PCR) Not detected (Not Detect) Parainfluenza 4 (PCR) Not detected (Not Detect) RSV (PCR) Not detected (Not Detect) Entero/Rhino (PCR) Not detected (Not Detect) 08/20/22 08/20/22 08/20/22 Range/Units 07:39 07:39 12:56 WBC (4.5-11.0) X10^3/uL RBC (4.5-5.9) X10^6/uL Hgb (13.5-17.5) g/dL Hct (41-53) % MCV (80-100) fL MCH (26-34) PG MCHC (30-36) % RDW (11.6-14.8) % Plt Count (150-400) X10^3/uL Neut % (Auto) (50-75) % Lymph % (Auto) (25-40) % Amite % (Auto) (3-14) % Eos % (Auto) (2-4) % Baso % (Auto) (0-2) % Neut # (Auto) (3619-8842) /uL Lymph # (Auto) (9832-5372) /uL Amite # (Auto) (0-900) /uL Eos # (Auto) (0-450) /uL Baso # (Auto) (0-100) /uL PT (10.1-12.7) SECONDS INR (0.9-1.3) Sodium 138 (137-145) mmol/L Potassium 5.0 (3.4-5.1) mmol/L Chloride 94 L (98-107) mmol/L Carbon Dioxide 32 (22-32) mmol/L BUN 40 H (9-20) mg/dL Creatinine 1.74 H (0.66-1.25) mg/dL Estimated GFR 38 L (>60) mL/min BUN/Creatinine Ratio 23.0 H (6-22) Glucose 222 H (80-110) mg/dL Lactate 1.5 (0.7-2.1) mmol/L Calcium 9.3 (8.4-10.2) mg/dL Total Bilirubin 0.7 (0.2-1.3) mg/dL AST 41 (17-59) IU/L ALT 33 (<50) IU/L Alkaline Phosphatase 111 (38-126) U/L Troponin I < 0.012 (0.01-0.034) ng/mL NT-Pro-B Natriuret Pep 388 (<450) pg/mL Total Protein 8.2 (6.3-8.2) g/dL Albumin 4.2 (3.5-5.0) g/dL Globulin 4.0 (1.7-4.1) g/dL Albumin/Globulin Ratio 1.1 (1.0-2.8) Urine RBC 1-5/hpf (0-5/HPF) Urine WBC 0-1/hpf (0-5/HPF) Urine Bacteria None seen (None) Ur Culture Indicated? Cult not indicated Chlamy pneumoniae PCR (Not Detect) Adenovirus (PCR) (Not Detect) B. pertussis DNA (PCR) (Not Detecte) B.parapertussis DNA PCR (Not Detecte) Coronavirus OC43 (PCR) (Not Detect) Coronavirus HKU1 (PCR) (Not Detect) Coronavirus 229E (PCR) (Not Detect) SARS-CoV-2 (PCR) (Not Detecte) Coronavirus NL63 (PCR) (Not Detect) Human Metapneumovir PCR (Not Detect) Influenza Type A (PCR) (Not Detect) Influenza Type B (PCR) (Not Detect) M. pneumoniae (PCR) (Not Detect) Parainfluenza 1 (PCR) (Not Detect) Parainfluenza 2 (PCR) (Not Detect) Parainfluenza 3 (PCR) (Not Detect) Parainfluenza 4 (PCR) (Not Detect) RSV (PCR) (Not Detect) Entero/Rhino (PCR) (Not Detect) Urine Dip Bedside Urine Glucose Negative Bedside Urine Bilirubin - Negative Bedside Urine Ketone - Negative Urine Specific Quinn 1.015 Bedside Urine Occult Blood ++ Bedside Urine pH 6.0 Bedside Urine Protein + 30 Bedside Urine Urobilinogen 0.2 Bedside Urine Nitrite - Negative Bedside Urine Leukocytes +/- 15 Esterase Point of care testing: Urine Dip Bedside Urine Glucose Negative Bedside Urine Bilirubin - Negative Bedside Urine Ketone - Negative Urine Specific Quinn 1.015 Bedside Urine Occult Blood ++ Bedside Urine pH 6.0 Bedside Urine Protein + 30 Bedside Urine Urobilinogen 0.2 Bedside Urine Nitrite - Negative Bedside Urine Leukocytes +/- 15 Esterase Imaging Data Chest x-ray: Radiologist's Impression: Streaky linear density in the left mid lung, similar to prior. Stable appearance of right hilum. No new airspace disease No interval change CT scan - chest: Radiologist's Impression: [address] [address] [address] Scan Report Signed Patient: Winston Houston MR#: [id number] : 1935 Acct:[id number] Age/Sex: 87 / M Date of Service: 08/20/22 Loc: ED Accession Number: [id number] ?? Procedure: CT chest w con Ordering Provider: Chinedu Christiansen D.O. PROCEDURE:? CT CHEST W CON ? INDICATIONS:? Right hilar mass evaluation ? TECHNIQUE:? After the administration of intravenous contrast, 5 mm thick sections acquired from the pulmonary apices to the posterior costophrenic angles.? 1 mm axial lung, 5 mm th ick coronal and sagittal reformats and 7 mm axial MIP were acquired.? For radiation dose reduction, the following was used:? automated exposure control, adjustment of mA and/or kV according to patient size.? ? COMPARISON:? [facility], CT, CT CHEST W [facility], 02/19/2020, 14:27. ? FINDINGS: ? Cardiovascular and Mediastinum:? Heart size is normal.? No evidence of thoracic aortic aneurysm.? Pulmonary vasculature is unremarkable.? No hiatal hernia.? Right thyroid nodule is similar the prior exam ? Lungs and Pleural Spaces:? Bilateral lower lobe pulmonary infiltrates probably account for right hilar opacity on chest x-ray ? Lymph Nodes:? Calcified and noncalcified mediastinal adenopathy is slightly larger than the prior exam, probably reactive. ? Musculoskeletal:? No evidence of rib fracture. Thoracic spine unremarkable. Chest wall and sternum intact. No lytic or blastic lesions.? Left-sided cardiac pacemaker.? Midline sternal wires present.? Degenerative change noted in the lower cervical spine ? Upper abdomen:? Right renal scarring.? Left kidney not visualized.? Cholecystectomy. ? IMPRESSION: ? 1. Bilateral lower lobe pulmonary infiltrates, probably account for right infrahilar density on concurrent chest x-ray.? ? 2. Reactive appearing mediastinal adenopathy.? Additional calcified mediastinal nodes are stable from the prior exam. ? Approved by: Ehsan De León M.D. on 08/20/2022 at 9:29? ECG Data Attestation: I personally reviewed and interpreted this ECG as follows: Interpretation: Atrially sensed ventricularly paced Rate of 86 MDM Narrative Medical decision making narrative: Patient was intermittently involved in answering of questions today in the emergency department. I had long discussions with both the patient's and other family members regarding his presentation today. Does not appear to be any signs of pneumonia. There initially was concerns of a mass in the right hilum which did not camarena out on a follow-up CT scan today. His urine does not show any signs of infection. His labs are relatively unremarkable. COVID and flu test negative. He did have quite a bit of upper respiratory secretions however he was adamant that he did not want any suctioning. He is on home oxygen at 2 L at baseline. He was maintaining his oxygen saturations greater th an 94% on 4 L. had a discussion with the patient's about their ability to change his oxygen as needed. They do have a pulse oximeter at home. I told them that if they have to go higher than 4 L for any extended period of time that they should return to the emergency department for further evaluation. They also have a for your lift at home to help with his mobility issues. I did discuss the case with social work as well. It appears that the last time that he was here there was a consult placed for hospice. This was reiterated with the family. Patient is a DNR with limited interventions and the POLST form was at bedside. Will discharge patient home. was comfortable taking patient home. Return precautions. They expressed understanding and agreement. Discharge Plan Departure Patient Disposition: Home Clinical Impression: Acute confusion, Shortness of breath, Hallucination Activity Restrictions/Additional Instructions: I recommend that you continue to give him all of his medications. Contact his primary doctor on Monday for a follow-up. Like we discussed you can increase his oxygen up to 4 L per minute at home as needed for any shortness of breath. If you need to go higher than this for any extended period of time please return to the emergency department. There is no indication of any infection today to include pneumonia or urinary tract infection. I do recommend that on Monday hospice becomes involved in the care of Winston. There has already been a referral placed for hospice during his last hospital visit. Prescriptions: No Action furosemide 20 mg Tablet 20 mg PO DAILY carbamazepine [Tegretol] 200 mg Tablet 200 mg PO BID amiodarone 200 mg tablet 200 mg PO QAM Rx Instructions: Give 200mg by mouth in the morning for htn hold if SPB <100 or HR <60 spironolactone 25 mg tablet 12.5 mg PO QAM insulin glargine [Lantus Solostar U-100 Insulin] 100 unit/mL (3 mL) insulin pen 12 unit SUBCUT QPM oxycodone-acetaminophen 5-325 mg Tablet 1 tab PO Q6HR PRN (Reason: Pain, Moderate (4-6)) Qty: 30 0RF pantoprazole 40 mg tablet,delayed release (DR/EC) 40 mg PO DAILY tamsulosin 0.4 mg capsule 0.4 mg PO QAM atorvastatin 80 mg Tablet 80 mg PO BEDTIME metoprolol succinate 100 mg Tablet Extended Release 24 Hr 50 mg PO QAM amlodipine 5 mg Tablet 5 mg PO DAILY Rx Instructions: give 5mg by mouth in the morning for htn horl if SPB <100 or HR <60 losartan 100 mg tablet 50 mg PO DAILY gabapentin 100 mg capsule 300 mg PO QPM warfarin 5 mg Tablet 10 mg PO MOWEFRSA@1700 Qty: 30 0RF warfarin 5 mg Tablet 15 mg PO SUTUTH@1700 Qty: 30 0RF Referrals: Trinidad Garcia MD [Primary Care Provider] - Stand Alone Forms: Patient Portal/API
[2022-08-20 07:57] LABS: Add Manual Diff / Slide Review NO; Basophils Absolute Auto 0 /uL (0-100); Basophils Percent Auto 0.3 % (0-2); Eosinophils Absolute Auto 100 /uL (0-450); Eosinophils Percent Auto 0.9 % (2-4); Hematocrit 36.1 % (41-53); Hemoglobin 11.7 g/dL (13.5-17.5); Lymphocytes Absolute Auto 1100 /uL (1100-4500); Lymphocytes Percent Auto 9.4 % (25-40); Mean Corpuscular HGB Conc 32.4 % (30-36); Mean Corpuscular Hemoglobin 30.1 PG (26-34); Mean Corpuscular Volume 92.7 fL (80-100); Monocytes Absolute Auto 1300 /uL (0-900); Monocytes Percent Auto 10.6 % (3-14); Neutrophils Absolute Auto 9400 /uL (1500-7000); Neutrophils Percent Auto 78.8 % (50-75); Platelet Count 272 X10^3/uL (150-400); Red Blood Cell Count 3.89 X10^6/uL (4.5-5.9); Red Cell Distribution Width 14.4 % (11.6-14.8)
[2022-08-20] MEDS: SODIUM CHLORIDE 0.9% 1,000 ML 250 ML IV ×2 (07:59→12:31)
--- NOTE | 2022-08-20 08:01 | DI.CT.S_ITS ---
PROCEDURE: CT CHEST W CON INDICATIONS: Right hilar mass evaluation TECHNIQUE: After the administration of intravenous contrast, 5 mm thick sections acquired from the pulmonary apices to the posterior costophrenic angles. 1 mm axial lung, 5 mm thick coronal and sagittal reformats and 7 mm axial MIP were acquired. For radiation dose reduction, the following was used: automated exposure control, adjustment of mA and/or kV according to patient size. COMPARISON: [facility], CT, CT CHEST W CON, 02/19/2020, 14:27. FINDINGS: Cardiovascular and Mediastinum: Heart size is normal. No evidence of thoracic aortic aneurysm. Pulmonary vasculature is unremarkable. No hiatal hernia. Right thyroid nodule is similar the prior exam Lungs and Pleural Spaces: Bilateral lower lobe pulmonary infiltrates probably account for right hilar opacity on chest x-ray Lymph Nodes: Calcified and noncalcified mediastinal adenopathy is slightly larger than the prior exam, probably reactive. Musculoskeletal: No evidence of rib fracture. Thoracic spine unremarkable. Chest wall and sternum intact. No lytic or blastic lesions. Left-sided cardiac pacemaker. Midline sternal wires present. Degenerative change noted in the lower cervical spine Upper abdomen: Right renal scarring. Left kidney not visualized. Cholecystectomy. IMPRESSION: 1. Bilateral lower lobe pulmonary infiltrates, probably account for right infrahilar density on concurrent chest x-ray. 2. Reactive appearing mediastinal adenopathy. Additional calcified mediastinal nodes are stable from the prior exam. Approved by: Ehsan De León M.D. on 08/20/2022 at 9:29
[2022-08-20 08:08] LABS: INR 1.9 (0.9-1.3)
[2022-08-20 08:18] LABS: Lactate (Lactic Acid) 1.5 mmol/L (0.7-2.1)
[2022-08-20 08:19] LABS: Alanine Aminotransferase 33 IU/L (<50); Albumin 4.2 g/dL (3.5-5.0); Albumin Globulin Ratio 1.1 (1.0-2.8); Alkaline Phosphatase 111 U/L (38-126); Aspartate Aminotransferase 41 IU/L (17-59); Bilirubin Total 0.7 mg/dL (0.2-1.3); Blood Urea Nitrogen 40 mg/dL (9-20); Calcium 9.3 mg/dL (8.4-10.2); Carbon Dioxide 32 mmol/L (22-32); Chloride 94 mmol/L (98-107); Estimated Glomerular Filt Rate 38 mL/min (>60); Glucose 222 mg/dL (80-110); HEMOLYSIS < 15 (0-50); Sodium 138 mmol/L (137-145); Total Protein 8.2 g/dL (6.3-8.2)
[2022-08-20 08:30] LABS: NT-proBNP (BNP-Adult 18+) 388 pg/mL (<450); Troponin I < 0.012 ng/mL (0.01-0.034)
[2022-08-20 08:50] LABS: Adenovirus Not Detected (Not Detect); B. parapertussis Not Detected (Not Detecte); Bordetella pertussis Not Detected (Not Detecte); Chlamydophila pneumoniae Not Detected (Not Detect); Coronavirus 229E Not Detected (Not Detect); Coronavirus HKU1 Not Detected (Not Detect); Coronavirus NL 63 Not Detected (Not Detect); Coronavirus OC43 Not Detected (Not Detect); Human Metapneumovirus Not Detected (Not Detect); Human Rhinovirus/Enterovirus Not Detected (Not Detect); Influenza A Not Detected (Not Detect); Influenza B Not Detected (Not Detect); Mycoplasma pneumoniae Not Detected (Not Detect); Parainfluenza Virus 1 Not Detected (Not Detect); Parainfluenza Virus 2 Not Detected (Not Detect); Parainfluenza Virus 3 Not Detected (Not Detect); Parainfluenza Virus 4 Not Detected (Not Detect); Respiratory Syncytial Virus Not Detected (Not Detect); SARS- CoV-2 Not Detected (Not Detecte)
--- NOTE | 2022-08-20 09:41 | PC.NURSE ---
Patient's SpO2 saturation is dropping to mid 80's on 2L nasal cannula. I increased O2 to 5LNasal Cannula just to get the O2 saturation about 90%. He has rattling sound in back of throat. Will not cough. Opens eyes but does not respond to my commands when I ask him to cough. I called RT to come and suction the back of his throat. He refuses to open his mouth for us at that time. Patient's and I both explained to him what we were trying to do but he will not open his mouth and moaned no. Will hold off on suction at this time per patient request. He is on comfort care. I spoke with about end of life care and hospice at this time. She states she has been considering getting him on hospice and will move forward with this. Patient is currently on 4L Nasal cannula with SpO2 of 90%.
[2022-08-20 13:16] LABS: Bacteria Urine None Seen; Culture Indicated Urine Cult Not Indicated; RBC Urine 1-5/HPF (0-5/HPF); WBC Urine 0-1/HPF (0-5/HPF)
--- NOTE | 2022-08-20 14:03 | CM.SWNOTE ---
HATCHERY MANAGER Note Patient familiar to this HATCHERY MANAGER from recent admission on the acute care floor. This HATCHERY MANAGER requested to assist in resource referral as patient returning home w/family today from the ER and hospice is recommended Met w/patient's spouse Venice and oldest son in room, patient sleeping. Venice explains that she has already been in contact w/[facility] Venice requests this HATCHERY MANAGER let [facility] know that patient is returning home today from the ER and hospice f/u needed jody, spouse Venice plans to update [facility] that they are no longer needed Placed call to Ban at [facility], updated w/above, will plan to fax ER note when it is completed. Availability of medical case worker unknown at this time Discussed, with spouse, the necessity for patient to be transported via BLS. Explained that spouse should an expect an out of pocket cost for this, amount unknown. Further discussed options ie private vehicle vs w/c van neither of which patient can tolerate. Spouse agreeable to BLS transport Plan: DC home from the ER, w/family support, BLS, [facility] to follow up jody. Spouse has DME at home for patient, hospital bed, maria t lift etc SARAH Evans
== END 2022-08-20 15:12 | disposition home or self-care (01) ==
PROVIDERS: Emergency Provider Emergency Medicine; PCP Internal Medicine
DX: R41.0 Disorientation, unspecified (principal); R06.02 Shortness of breath; R44.3 Hallucinations, unspecified; Z79.899 Other long term (current) drug therapy; Z79.01 Long term (current) use of anticoagulants; Z20.822 Contact with and (suspected) exposure to COVID-19
CPT/HCPCS: 36415; 71045; 71260; 80053; 81003; 81015; 83605; 83880; 84484; 85025; 85610; 87086; 87633; 93005; 93010; 96360; 96361; 99285; Q9967